=== PATIENT | female | born 1945 | race Caucasian/White ===

== ENCOUNTER → 2016-12-14 | Outpatient (CLI) | payer MEDICARE ==
--- NOTE | 2016-12-15 12:04 | MM ---
Reason for exam: screening (asymptomatic). Last mammogram was performed 1 year ago. History: Patient is postmenopausal and is nulliparous. Physical Findings: A clinical breast exam by your physician is recommended on an annual basis and results should be correlated with mammographic findings. MG 3D Screening Mammo W/Cad Bilateral CC, MLO, and XCCL view(s) were taken. Prior study comparison: December 01, 2015, bilateral MG 3d screening mammo w/cad. April 09, 2013, mammogram, performed at [place]. There are scattered fibroglandular densities. No significant changes when compared with prior studies. ASSESSMENT: Benign, BI-RAD 2 RECOMMENDATION: Routine screening mammogram of both breasts in 1 year.
== END | disposition home or self-care (01) ==
LOC: RADMAMWWP 11:53
PROVIDERS: ATTEND Internal Medicine
DX: Z12.31 Encounter for screening mammogram for malignant neoplasm of breast (principal)
CPT/HCPCS: 77063; G0202

== ENCOUNTER 2017-07-25 03:00 | Inpatient (IN) | payer MEDICARE ==
[2017-07-25 05:18] LABS: Anisocytosis Slight; HCT 38.2 % (34.0-46.0); HGB 11.1 gm/dL (11.4-16.0); Hypochromasia Marked; MCH 21.9 pg (25.0-35.0); MCV 75.4 fL (80.0-100.0); Mean Platelet Volume 9.4; Microcytosis Moderate; Platelet Count 308 k/uL (150-450); RBC 5.06 m/uL (3.80-5.40); RDW 18.4 % (11.5-15.5); WBC 6.7 k/uL (3.8-10.6)
[2017-07-25 05:37] LABS: Albumin 3.7 g/dL (3.5-5.0); Calcium 9.2 mg/dL (8.4-10.2); Magnesium 2.3 mg/dL (1.6-2.3); Total Bilirubin 1.1 mg/dL (0.2-1.3); Total Protein 6.7 g/dL (6.3-8.2)
[2017-07-25 05:42] LABS: Potassium 6.3 mmol/L (3.5-5.1)
--- NOTE | 2017-07-25 06:16 | XR ---
EXAM: XR Chest, 1 View CLINICAL HISTORY: chest pain, SOB TECHNIQUE: Frontal view of the chest. COMPARISON: No relevant prior studies available. FINDINGS: Lungs: Unremarkable. No consolidation. Pleural space: Unremarkable. No pneumothorax. Heart: Unremarkable. No cardiomegaly. Mediastinum: Unremarkable. Bones/joints: Unremarkable. Other findings: Wires project over the midline. IMPRESSION: No acute findings.
[2017-07-25 06:26] LABS: Potassium 5.7 mmol/L (3.5-5.1)
[2017-07-25 06:40] LABS: Amorphous Sediment,Urine Few /hpf; Appearance,Urine Cloudy (Clear); Bacteria,Urine Rare /hpf; Bilirubin,Urine 1+ (Negative); Blood,Urine Negative (Negative); Color,Urine Dark Brown; Glucose,Urine (UA) Negative (Negative); Hyaline Casts,Urine 32 /lpf (0-2); Ketones,Urine Negative (Negative); Leukocyte Esterase,Urine Moderate (Negative); Mucus,Urine Rare /hpf; Nitrite,Urine Negative (Negative); Protein,Urine 1+ (Negative); Specific Gravity,Urine 1.019 (1.001-1.035); Squamous Epithelial Cell,Urine 1 /hpf (0-4); WBC,Urine 35 /hpf (0-5)
[2017-07-25] MEDS ORDERED: SODIUM CHLORIDE 0.9% 2,000 ML IV ONE (07:15)
[2017-07-25] MEDS ORDERED: cefTRIAXone IN SWFI 1,000 MG/10 ML SYRINGE IVP STA (07:17)
[2017-07-25] MEDS ORDERED: NALOXONE 0.4 MG/ML 1 ML VIAL IV PRN (07:17)
[2017-07-25] MEDS ORDERED: DOCUSATE 100 MG CAP PO PRN (07:22)
[2017-07-25] MEDS ORDERED: ALBUTEROL NEBULIZED 2.5 MG/3 ML INHALATION PRN (07:22)
[2017-07-25] MEDS ORDERED: SODIUM POLYSTYRENE SULFONATE 15 GM/60 ML BOTTLE PO STA (07:34)
[2017-07-25] MEDS ORDERED: INSULIN REGULAR 100 UNIT/ML VIAL SQ STA (07:35)
[2017-07-25] MEDS: SODIUM CHLORIDE 0.9% 1,000 ML IV SCH ×2 (08:04→14:12)
[2017-07-25] MEDS ORDERED: FAMOTIDINE 20 MG TAB PO SCH (09:00)
[2017-07-25] MEDS: CALCIUM CARBONATE 500 MG CHEWABLE PO SCH (09:13)
[2017-07-25] MEDS: OXYBUTYNIN 15 MG TAB.ER.24 PO SCH (09:14)
[2017-07-25] MEDS: metFORMIN 500 MG TAB PO SCH (09:14)
[2017-07-25] MEDS: ATENOLOL 25 MG TAB PO SCH (09:14)
[2017-07-25] MEDS: MULTIVITAMINS, THERA 1 EACH TAB PO SCH (09:14)
[2017-07-25] MEDS: ATORVASTATIN 40 MG TAB PO SCH (09:15)
[2017-07-25] MEDS: BACLOFEN 10 MG TAB PO PRN (09:15)
[2017-07-25] MEDS: LEVOTHYROXINE 100 MCG TAB PO SCH (09:16)
[2017-07-25] MEDS: DULoxetine HCL 60 MG CAPSULE.DR PO SCH (09:16)
[2017-07-25] MEDS: LISINOPRIL 20 MG TAB PO SCH (09:16)
[2017-07-25] MEDS: PIOGLITAZONE 15 MG TAB PO SCH (09:18)
[2017-07-25] MEDS: CHOLECALCIFEROL 400 UNIT TAB PO SCH (09:41)
[2017-07-25] MEDS: oxyCODONE ER 10 MG TAB.ER.12H PO SCH ×3 (09:42→23:58)
[2017-07-25] MEDS: ASCORBIC ACID 500 MG TAB PO SCH (09:42)
[2017-07-25 12:22] LABS: Glucose,Whole Blood 335 mg/dL (75-99)
[2017-07-25 12:23] LABS: Glucose,Whole Blood 316 mg/dL (75-99)
[2017-07-25 12:42] LABS: Glucose,Whole Blood 263 mg/dL (75-99)
[2017-07-25] MEDS: INSULIN ASPART 100 UNIT/ML 1 ML 10 ML VIAL SQ SCH ×3 (13:56→22:27)
[2017-07-25] MEDS: ONDANSETRON 4 MG/2 ML VIAL IVP PRN (14:13)
[2017-07-25 17:14] LABS: Glucose,Whole Blood 189 mg/dL (75-99)
[2017-07-25] MEDS: COENZYME PO SCH (19:33)
[2017-07-25 20:29] LABS: Glucose,Whole Blood 176 mg/dL (75-99)
[2017-07-25] MEDS: traZODone HCL 50 MG TAB PO SCH (22:28)
[2017-07-26] MEDS: LEVOTHYROXINE 100 MCG TAB PO SCH (06:21)
[2017-07-26] MEDS: SODIUM CHLORIDE 0.9% 1,000 ML IV SCH ×3 (06:21→23:07)
[2017-07-26 07:34] LABS: Glucose,Whole Blood 196 mg/dL (75-99)
[2017-07-26] MEDS: metFORMIN 500 MG TAB PO SCH (08:23)
[2017-07-26] MEDS: ASCORBIC ACID 500 MG TAB PO SCH (08:24)
[2017-07-26] MEDS: ATENOLOL 25 MG TAB PO SCH (08:25)
[2017-07-26] MEDS: CALCIUM CARBONATE 500 MG CHEWABLE PO SCH (08:25)
[2017-07-26] MEDS: ATORVASTATIN 40 MG TAB PO SCH (08:25)
[2017-07-26] MEDS: CHOLECALCIFEROL 400 UNIT TAB PO SCH (08:26)
[2017-07-26] MEDS: INSULIN ASPART 100 UNIT/ML 1 ML 10 ML VIAL SQ SCH ×4 (08:27→21:23)
[2017-07-26] MEDS: DULoxetine HCL 60 MG CAPSULE.DR PO SCH (08:27)
[2017-07-26] MEDS: LISINOPRIL 20 MG TAB PO SCH (08:35)
[2017-07-26] MEDS: FAMOTIDINE 20 MG TAB PO SCH (08:35)
[2017-07-26] MEDS: OXYBUTYNIN 15 MG TAB.ER.24 PO SCH (08:36)
[2017-07-26] MEDS: MULTIVITAMINS, THERA 1 EACH TAB PO SCH (08:36)
[2017-07-26] MEDS: PIOGLITAZONE 15 MG TAB PO SCH (08:36)
[2017-07-26] MEDS: oxyCODONE ER 10 MG TAB.ER.12H PO SCH ×3 (08:38→23:07)
[2017-07-26] MEDS: COENZYME PO SCH (08:39)
[2017-07-26 09:14] LABS: Anisocytosis Slight; HCT 31.6 % (34.0-46.0); Hypochromasia Marked; MCHC 29.2 g/dL (31.0-37.0); MCV 75.4 fL (80.0-100.0); Mean Platelet Volume 8.4; Microcytosis Slight; Platelet Count 243 k/uL (150-450); RBC 4.19 m/uL (3.80-5.40); WBC 2.8 k/uL (3.8-10.6)
[2017-07-26 09:23] LABS: HGB 9.2 gm/dL (11.4-16.0)
[2017-07-26 09:24] LABS: Albumin 3.1 g/dL (3.5-5.0); Calcium 8.7 mg/dL (8.4-10.2); Potassium 4.4 mmol/L (3.5-5.1); Total Bilirubin 0.6 mg/dL (0.2-1.3); Total Protein 5.9 g/dL (6.3-8.2)
[2017-07-26 10:49] LABS: Band Neutrophils % 4 %; Eosinophils # (M) 0.11 k/uL (0-0.7); Lymphocytes # (M) 0.45 k/uL (1.0-4.8); Monocytes # (M) 0.08 k/uL (0-1.0); Neutrophils % (M) 73 %; Nucleated Red Blood Cells 0 /100 WBC (0-0); Ovalocytes Present; Poikilocytosis (M) Present; Total Cells Counted 100
[2017-07-26 12:06] LABS: Glucose,Whole Blood 221 mg/dL (75-99)
[2017-07-26] MEDS: ONDANSETRON 4 MG/2 ML VIAL IVP PRN (13:58)
[2017-07-26] MEDS ORDERED: FLUTICASONE 50MCG/SPRAY NASAL 16GM EA NOSTRIL PRN (17:24)
[2017-07-26 17:49] LABS: Glucose,Whole Blood 239 mg/dL (75-99)
--- NOTE | 2017-07-26 17:52 | P.HPIM ---
History of Present Illness H&P Date: 07/25/17 Chief Complaint: Mental status change Patient is a 74-year-old female with past medical history of hypertension, hyperlipidemia, hypothyroidism, diabetes mellitus type 1, who was brought to the emergency department with the concerned about mental status change. Patient remains somewhat confused and is unable to recall why she was brought to the hospital. Patient does note that she is in the hospital. According to the EMS records patient was found to be somewhat confused by one of an neighborhood friends. He found the patient very confused and trying to defecate on the furniture. He called EMS and patient was brought to the hospital. Review of Systems ROS unobtainable: due to mental status Constitutional: Reports as per HPI Eyes: denies bulging eye, denies discharge, denies pain Ears: deny: decreased hearing, ear discharge Ears, nose, mouth and throat: Reports as per HPI Cardiovascular: Reports chest pain, Reports high blood pressure Respiratory: Reports congestion, Reports cough Gastrointestinal: Reports heartburn, Reports nausea Genitourinary: Reports incomplete emptying Musculoskeletal: Reports muscle cramps, Reports myalgias Musculoskeletal: absent: ankle pain, elbow pain, foot swelling Integumentary: Reports dryness Neurological: Reports confusion, Reports weakness Psychiatric: Reports irritability Endocrine: Reports high blood sugars Hematologic/Lymphatic: Reports as per HPI Past Medical History Past Medical History: Asthma, Coronary Artery Disease (CAD), Cancer, Diabetes Mellitus, Hyperlipidemia, Hypertension, Osteoarthritis (OA), Pneumonia, Renal Disease, Thyroid Disorder Additional Past Medical History / Comment(s): R sided ovarian cancer diagnosed about 06/03/17 with exploratory laparotomy with tumor removal and lysis of adhesions-pt has had 1st IV chemo and will get 5 more cycles ([facility]) , current sacral ulcer-receiving wound care at home by home care nurse, IDDM type II, CKD, bronchitis, osteopenia, cardiac murmur, possible CAD, chronic back pain, recent UTI, urine incontinence at times. History of Any Multi-Drug Resistant Organisms: None Reported Past Surgical History: Appendectomy, Cholecystectomy, Hysterectomy, Joint Replacement, Tonsillectomy Additional Past Surgical History / Comment(s): 06/2017 Exploratory laparotomy with tumor removal and lysis of adhesions done at [facility], bilateral total knees, bilateral cataract removals, colonoscopies-last one normal, one prior had multiple benign polypectomies, D&C. Past Anesthesia/Blood Transfusion Reactions: No Reported Reaction Additional Past Anesthesia/Blood Transfusion Reaction / Comment(s): Unsure of family history, patient was adopted. Smoking Status: Former smoker - Past Family History Father History Unknown: Yes Additional Family Medical History / Comment(s): Pt is adopted and does not know parents medical history. Medications and Allergies Home Medications Medication Instructions Recorded Confirmed Type Albuterol Inhaler [Ventolin Hfa 2 inhalation INHALATION QID PRN 01/06/16 History Inhaler] Ascorbic Acid [Vitamin C] 1,000 mg PO DAILY 01/06/16 07/25/17 History Baclofen 10 mg PO QID PRN 01/06/16 07/25/17 History Calcium Carbonate [Calcium] 1,200 mg PO DAILY 01/06/16 07/25/17 History Cholecalciferol [Vitamin D3] 200 units PO DAILY 01/06/16 07/25/17 History DULoxetine HCL [Cymbalta] 60 mg PO DAILY 01/06/16 07/25/17 History Lisinopril 40 mg PO DAILY 01/06/16 07/25/17 History Multivitamin [Multivitamins Adult 1 tab PO DAILY 01/06/16 07/25/17 History Gummies] Pioglitazone [Actos] 15 mg PO DAILY 01/06/16 07/25/17 History Trospium Chloride [Sanctura] 20 mg PO BID 01/06/16 07/25/17 History Ubidecarenone [Coenzyme Q10] 200 mcg PO DAILY 01/06/16 07/25/17 History metFORMIN HCL [Metformin HCl ER] 1,000 mg PO DAILY 01/06/16 07/25/17 History oxyCODONE HCL 10 mg PO Q6H PRN 01/06/16 07/25/17 History traZODone HCL [Desyrel] 50 - 100 mg PO HS 01/06/16 07/25/17 History Insulin NPH Hum/Reg Insulin Hm 30 unit SQ AC-BRKFST 03/17/16 07/25/17 History [NovoLIN 70-30 100 UNIT/ML VIAL] Insulin NPH Hum/Reg Insulin Hm 30 unit SQ AC-SUPPER 03/17/16 07/25/17 History [NovoLIN 70-30 100 UNIT/ML VIAL] Atorvastatin [Lipitor] 40 mg PO HS 07/25/17 07/25/17 History Fluticasone Nasal [place] [Flonase 1 spray EA NOSTRIL DAILY PRN 07/25/17 07/25/17 History Nasal [place]] Hydrochlorothiazide [Hydrodiuril] 25 mg PO DAILY 07/25/17 07/25/17 History Levothyroxine Sodium [Synthroid] 100 mcg PO DAILY 07/25/17 07/25/17 History Metoprolol Tartrate [Lopressor] 12.5 mg PO BID 07/25/17 07/25/17 History Oxybutynin Chloride [Ditropan XL] 5 mg PO DAILY 07/25/17 07/25/17 History amLODIPine [Norvasc] 5 mg PO DAILY 07/25/17 07/25/17 History Allergies Allergy/AdvReac Type Severity Reaction Status Date / Time amoxicillin Allergy Rash/Hives Verified 07/25/17 08:55 ciprofloxacin [From Cipro] Allergy Dyspnea Verified 07/25/17 08:55 ciprofloxacin HCl Allergy Dyspnea Verified 07/25/17 08:55 [From Cipro] Sulfa (Sulfonamide Allergy Unknown Verified 07/25/17 08:55 Antibiotics) Physical Exam Vitals: Vital Signs Temp Pulse Pulse Resp BP BP Pulse Ox 07/25/17 16:35 98.8 F 91 20 123/54 98 07/25/17 11:14 97.5 F L 76 20 127/73 100 07/25/17 10:48 96.9 F L 80 17 124/56 98 07/25/17 09:44 88 17 116/57 97 Intake and Output 07/25/17 07/25/17 07/25/17 06:59 14:59 22:59 Output Total 300 Balance -300 Output: Urine 300 Other: # Voids 1 Weight 0 g Patient Weight 07/26/17 06:59 Weight 0 g - Constitutional General appearance: no acute distress, obese - EENT Eyes: anicteric sclerae, EOMI, PERRLA, fundus normal ENT: hard of hearing, normal oropharynx Ears: negative: erythema - Neck Neck: no lymphadenopathy, no normal ROM, no other, no rigidity, no stridor, no thyromegaly Carotids: negative: bruit present Thyroid: negative: enlarged, nodule - Respiratory Respiratory: bilateral: diminished, rhonchi, negative: rales, wheezing - Cardiovascular Rhythm: regular Heart sounds: normal: S1, S2 Abnormal Heart Sounds: systolic murmur - Gastrointestinal General gastrointestinal: normal bowel sounds, soft, tenderness Localized gastrointestinal: tender: diffuse - Integumentary Integumentary: normal turgor - Neurologic Neurologic: CNII-XII intact - Musculoskeletal Musculoskeletal: generalized weakness Results CBC & Chem 7: 07/26/17 08:05 07/26/17 08:05 Labs: Abnormal Lab Results - Last 24 Hours (Table) 07/25/17 07/25/17 07/25/17 Range/Units 03:39 04:25 04:25 Hgb 11.1 L (11.4-16.0) gm/dL MCV 75.4 L (80.0-100.0) fL MCH 21.9 L (25.0-35.0) pg MCHC 29.0 L (31.0-37.0) g/dL RDW 18.4 H (11.5-15.5) % Sodium 130 L (137-145) mmol/L Potassium 6.3 H* (3.5-5.1) mmol/L Chloride 95 L (98-107) mmol/L Carbon Dioxide 19 L (22-30) mmol/L BUN 46 H (7-17) mg/dL Creatinine 1.62 H (0.52-1.04) mg/dL Glucose 364 H (74-99) mg/dL POC Glucose (mg/dL) 335 H (75-99) mg/dL Plasma Lactic Acid Konstantin (0.7-2.0) mmol/L AST 39 H (14-36) U/L Alkaline Phosphatase 602 H (38-126) U/L Urine Appearance (Clear) Urine Protein (Negative) Urine Bilirubin (Negative) Ur Leukocyte Esterase (Negative) Urine WBC (0-5) /hpf Amorphous Sediment (None) /hpf Urine Bacteria (None) /hpf Hyaline Casts (0-2) /lpf Urine Mucus (None) /hpf 07/25/17 07/25/17 07/25/17 Range/Units 04:25 05:50 06:02 Hgb (11.4-16.0) gm/dL MCV (80.0-100.0) fL MCH (25.0-35.0) pg MCHC (31.0-37.0) g/dL RDW (11.5-15.5) % Sodium 129 L (137-145) mmol/L Potassium 5.7 H (3.5-5.1) mmol/L Chloride 95 L (98-107) mmol/L Carbon Dioxide 21 L (22-30) mmol/L BUN 48 H (7-17) mg/dL Creatinine 1.71 H (0.52-1.04) mg/dL Glucose 363 H (74-99) mg/dL POC Glucose (mg/dL) (75-99) mg/dL Plasma Lactic Acid Konstantin 4.1 H* (0.7-2.0) mmol/L AST (14-36) U/L Alkaline Phosphatase (38-126) U/L Urine Appearance Cloudy H (Clear) Urine Protein 1+ H (Negative) Urine Bilirubin 1+ H (Negative) Ur Leukocyte Esterase Moderate H (Negative) Urine WBC 35 H (0-5) /hpf Amorphous Sediment Few H (None) /hpf Urine Bacteria Rare H (None) /hpf Hyaline Casts 32 H (0-2) /lpf Urine Mucus Rare H (None) /hpf 07/25/17 07/25/17 07/25/17 Range/Units 09:04 09:12 12:28 Hgb (11.4-16.0) gm/dL MCV (80.0-100.0) fL MCH (25.0-35.0) pg MCHC (31.0-37.0) g/dL RDW (11.5-15.5) % Sodium (137-145) mmol/L Potassium (3.5-5.1) mmol/L Chloride (98-107) mmol/L Carbon Dioxide (22-30) mmol/L BUN (7-17) mg/dL Creatinine (0.52-1.04) mg/dL Glucose (74-99) mg/dL POC Glucose (mg/dL) 316 H 263 H (75-99) mg/dL Plasma Lactic Acid Konstantin 2.5 H* (0.7-2.0) mmol/L AST (14-36) U/L Alkaline Phosphatase (38-126) U/L Urine Appearance (Clear) Urine Protein (Negative) Urine Bilirubin (Negative) Ur Leukocyte Esterase (Negative) Urine WBC (0-5) /hpf Amorphous Sediment (None) /hpf Urine Bacteria (None) /hpf Hyaline Casts (0-2) /lpf Urine Mucus (None) /hpf 07/25/17 Range/Units 17:09 Hgb (11.4-16.0) gm/dL MCV (80.0-100.0) fL MCH (25.0-35.0) pg MCHC (31.0-37.0) g/dL RDW (11.5-15.5) % Sodium (137-145) mmol/L Potassium (3.5-5.1) mmol/L Chloride (98-107) mmol/L Carbon Dioxide (22-30) mmol/L BUN (7-17) mg/dL Creatinine (0.52-1.04) mg/dL Glucose (74-99) mg/dL POC Glucose (mg/dL) 189 H (75-99) mg/dL Plasma Lactic Acid Konstantin (0.7-2.0) mmol/L AST (14-36) U/L Alkaline Phosphatase (38-126) U/L Urine Appearance (Clear) Urine Protein (Negative) Urine Bilirubin (Negative) Ur Leukocyte Esterase (Negative) Urine WBC (0-5) /hpf Amorphous Sediment (None) /hpf Urine Bacteria (None) /hpf Hyaline Casts (0-2) /lpf Urine Mucus (None) /hpf Microbiology - Last 24 Hours (Table) 07/25/17 05:50 Urine Culture - Preliminary Urine,Catheterized Thrombosis Risk Factor Assmnt - Choose All That Apply Any of the Below Risk Factors Present?: Yes Each Factor Represents 1 point: Obesity (BMI >25) Other Risk Factors: Yes Each Risk Factor Represents 2 Points: Age 61-74 years, Malignancy Other congenital or acquired thrombophilia - If yes, enter type in comment: No Thrombosis Risk Factor Assessment Total Risk Factor Score: 5 Thrombosis Risk Factor Assessment Level: High Risk Assessment and Plan Assessment: 1. Toxic metabolic encephalopathy secondary to sepsis 2. Complicated UTI 3. Lactic acidosis secondary to sepsis versus dehydration 4. Acute renal failure 5. Hyponatremia 6. Hyperkalemia 7. Hyperglycemia/uncontrolled diabetes 8. Hypertension 9. Hyperlipidemia 10. Hypothyroidism 11. DVT prophylaxis 12. GI prophylaxis Plan his treatment patient to the monitored floor. Patient is started on IV fluids per sepsis bundle. The monitor DANIEL's and renal function. Start patient on IV Rocephin until urine cultures available. Await urine culture and blood culture report for further recommendations. Neuro checks were ordered which were stable. Monitor Accu-Cheks with sliding scale. We'll adjust insulin if blood sugars remain markedly elevated after treatment of sepsis. Patient's blood pressure is stable and so we will resume all home medications except diuretics secondary to renal failure. Monitor lactic acid level and consult ID if lactic acid remains elevated after starting on IV antibiotics and IV fluid resuscitation.
[2017-07-26] MEDS: amLODIPine 5 MG TAB PO SCH (18:09)
[2017-07-26 19:56] LABS: Glucose,Whole Blood 226 mg/dL (75-99)
--- NOTE | 2017-07-26 22:36 | PN ---
PROGRESS NOTE DATE OF SERVICE: 07/26/2017 The patient is seen in her room. A 74-year-old lady admitted with altered mental status and sepsis. Vital signs temperature 98.1, pulse 78, respiration 18, blood pressure 142/62, O2 saturation 94% on room air. CONSTITUTIONAL: Patient is awake, alert and she is in no acute distress. HEENT atraumatic, normocephalic. Pupils equal and reactive to light. Extraocular movements intact. Buccal mucosa is fair. Neck is supple without any goiter, lymphadenopathy. JVD is negative. No carotid bruit heard. RESPIRATORY: Lungs are clear to auscultate. No rales, rhonchi, or wheezes. Cardiovascular: Heart is regular rate and rhythm without any murmurs or gallop rhythm. Abdomen/GI: Abdomen is soft, obese, nontender, nondistended. Bowel sounds positive. Extremities: Patient has 1+ edema bilateral lower extremities with multiple blisters, both upper and lower extremities, which are dried up. The pulses are palpable. Neurological examination: Patient is awake and alert. She is slow to respond. Cranial nerves 2-12 are grossly intact. No gross motor or sensory deficit. LABS: CBC shows white blood count of 2.8, hemoglobin 9.2, hematocrit 31.6, and platelet count of 243. Chemical profile sodium 138, potassium 4.4, chloride 21, bicarb 13, BUN of 14, creatinine 1.26. Glucose is ranging between 230-239. Urine culture is positive for gram-negative bacilli. ASSESSMENT: 1. Altered mental status, metabolic and toxic encephalopathy secondary to sepsis. 2. Complicated urinary tract infection. 3. Acute renal failure, dehydration. 4. Lactic acidosis secondary to sepsis. 5. Electrolyte imbalance. 6. Hyponatremia. 7. Hyperglycemia without acidosis. 8. Hypertension. 9. Hyperlipidemia. 10.Hypothyroidism. 11.DVT/GI prophylaxis. PLAN: Continue with IV Rocephin at this point. Will wait for urine culture. Final antibiotic recommendations. Continue with the IV fluids. Monitor CBC, electrolytes and renal function. Monitor I and Os strictly. Accu-Cheks with sliding scale. Adjust insulin if needed. We will resume all home medications but hold off of diuretics secondary to renal failure. MMODL / IJN: [id number] / [facility]
[2017-07-26] MEDS: BACLOFEN 10 MG TAB PO PRN (23:07)
[2017-07-26] MEDS: traZODone HCL 50 MG TAB PO SCH (23:07)
[2017-07-27] MEDS: LEVOTHYROXINE 100 MCG TAB PO SCH (05:44)
[2017-07-27 07:03] LABS: Glucose,Whole Blood 194 mg/dL (75-99)
[2017-07-27] MEDS: INSULIN ASPART 100 UNIT/ML 1 ML 10 ML VIAL SQ SCH ×4 (07:56→21:14)
[2017-07-27 08:08] LABS: Anisocytosis Slight; HCT 26.3 % (34.0-46.0); HGB 8.1 gm/dL (11.4-16.0); Hypochromasia Marked; MCH 22.4 pg (25.0-35.0); MCHC 30.7 g/dL (31.0-37.0); MCV 73.1 fL (80.0-100.0); Mean Platelet Volume 8.7; Microcytosis Moderate; Platelet Count 222 k/uL (150-450); RDW 18.9 % (11.5-15.5); WBC 2.1 k/uL (3.8-10.6)
[2017-07-27 08:18] LABS: Anion Gap 7 mmol/L; Blood Urea Nitrogen 26 mg/dL (7-17); Calcium 8.4 mg/dL (8.4-10.2); Carbon Dioxide 24 mmol/L (22-30); Chloride 103 mmol/L (98-107); Glucose 198 mg/dL (74-99); Potassium 3.9 mmol/L (3.5-5.1); Sodium 134 mmol/L (137-145)
[2017-07-27] MEDS: ONDANSETRON 4 MG/2 ML VIAL IVP PRN (08:54)
[2017-07-27] MEDS: metFORMIN 500 MG TAB PO SCH (09:03)
[2017-07-27] MEDS: ATORVASTATIN 40 MG TAB PO SCH (09:05)
[2017-07-27] MEDS: ASCORBIC ACID 500 MG TAB PO SCH (09:05)
[2017-07-27] MEDS: ATENOLOL 25 MG TAB PO SCH (09:05)
[2017-07-27] MEDS: CALCIUM CARBONATE 500 MG CHEWABLE PO SCH (09:05)
[2017-07-27] MEDS: amLODIPine 5 MG TAB PO SCH (09:05)
[2017-07-27] MEDS: CHOLECALCIFEROL 400 UNIT TAB PO SCH (09:06)
[2017-07-27] MEDS: LISINOPRIL 20 MG TAB PO SCH (09:07)
[2017-07-27] MEDS: OXYBUTYNIN 15 MG TAB.ER.24 PO SCH (09:07)
[2017-07-27] MEDS: DULoxetine HCL 60 MG CAPSULE.DR PO SCH (09:07)
[2017-07-27] MEDS: MULTIVITAMINS, THERA 1 EACH TAB PO SCH (09:07)
[2017-07-27] MEDS: FAMOTIDINE 20 MG TAB PO SCH (09:07)
[2017-07-27] MEDS: oxyCODONE ER 10 MG TAB.ER.12H PO SCH ×3 (09:07→21:52)
[2017-07-27] MEDS: COENZYME PO SCH (09:08)
[2017-07-27] MEDS: PIOGLITAZONE 15 MG TAB PO SCH (09:08)
[2017-07-27] MEDS: BACLOFEN 10 MG TAB PO PRN ×2 (10:40→23:31)
[2017-07-27 10:47] LABS: Band Neutrophils % 1 %; Eosinophils # (M) 0.38 k/uL (0-0.7); Lymphocytes # (M) 0.61 k/uL (1.0-4.8); Monocytes # (M) 0.44 k/uL (0-1.0); Neutrophils % (M) 31 %; Nucleated Red Blood Cells 0 /100 WBC (0-0); Total Cells Counted 100
[2017-07-27 10:49] LABS: Ovalocytes Present
[2017-07-27 10:50] LABS: Target Cells Present
[2017-07-27 10:51] LABS: Poikilocytosis (M) Present
[2017-07-27 11:18] LABS: Glucose,Whole Blood 272 mg/dL (75-99)
[2017-07-27 14:02] LABS: Anisocytosis Slight; HCT 29.8 % (34.0-46.0); HGB 8.5 gm/dL (11.4-16.0); Hypochromasia Marked; MCH 22.6 pg (25.0-35.0); MCHC 28.4 g/dL (31.0-37.0); Mean Platelet Volume 6.6; Microcytosis Slight; Platelet Count 251 k/uL (150-450); RBC 3.74 m/uL (3.80-5.40); RDW 17.2 % (11.5-15.5); WBC 2.1 k/uL (3.8-10.6)
[2017-07-27 14:04] LABS: MCV 79.5 fL (80.0-100.0)
[2017-07-27 17:13] LABS: Glucose,Whole Blood 219 mg/dL (75-99)
[2017-07-27] MEDS: cefTRIAXone IN SWFI 1,000 MG/10 ML SYRINGE IVP SCH ×2 (18:02→19:41)
[2017-07-27] MEDS: PANTOPRAZOLE 40 MG TABLET PO SCH (18:03)
[2017-07-27] MEDS ORDERED: FILGRASTIM-SNDZ 480 MCG/0.8 ML SYRINGE SQ SCH (18:30)
[2017-07-27 19:35] LABS: Iron Saturation 2.41 (12.00-45.00)
[2017-07-27 19:55] LABS: Glucose,Whole Blood 177 mg/dL (75-99)
[2017-07-27] MEDS: traZODone HCL 50 MG TAB PO SCH (21:51)
--- NOTE | 2017-07-28 00:20 | P.CONS ---
History of Present Illness - Reason for Consult Consult date: 07/27/17 Altered mental status, UTI, cytopenias on chemo - History of Present Illness The patient is a 72-year-old white female, who was diagnosed with ovarian cancer in 05/18. She underwent radical surgery by Dr. Downey at [facility] in early 06/17. According to the patient, on obvious disease was removed. The patient was then started on adjuvant chemotherapy. She is not aware of the name of that regimen but states that she is getting it every 3 weeks. This is likely to be carboplatin and Taxol. She had her first cycle about 2 weeks ago. She does not recall receiving any growth factor support. The patient was noted by her friend at home to be very confused. She had also fallen and hurt her left arm. She was therefore brought into the emergency room. She was noted to be neutropenic, as well as anemic. ANC was less than 1000. Urinalysis was abnormal. The patient was started on IV hydration and antibiotics with clinical improvement. She did not have any overt fevers. Consult was placed for further evaluation and recommendations. Review of Systems Constitutional: Reports fatigue, Reports poor appetite, Reports weakness Eyes: denies blurred vision, denies pain Ears: deny: decreased hearing, ear discharge, earache, tinnitus Ears, nose, mouth and throat: Denies headache, Denies sore throat Cardiovascular: Reports decreased exercise tolerance Respiratory: Denies cough Gastrointestinal: Reports nausea Genitourinary: Reports as per HPI, Reports urgency Menstruation: Reports postmenopausal Musculoskeletal: Reports muscle weakness Integumentary: Denies pruritus, Denies rash Neurological: Reports change in mentation, Reports confusion Psychiatric: Reports confusion Endocrine: Reports fatigue, Denies weight change Hematologic/Lymphatic: Reports as per HPI Past Medical History Past Medical History: Asthma, Coronary Artery Disease (CAD), Cancer, Diabetes Mellitus, Hyperlipidemia, Hypertension, Osteoarthritis (OA), Pneumonia, Renal Disease, Thyroid Disorder Additional Past Medical History / Comment(s): R sided ovarian cancer diagnosed about 06/03/17 with exploratory laparotomy with tumor removal and lysis of adhesions-pt has had 1st IV chemo and will get 5 more cycles ([facility]) , current sacral ulcer-receiving wound care at home by home care nurse, IDDM type II, CKD, bronchitis, osteopenia, cardiac murmur, possible CAD, chronic back pain, recent UTI, urine incontinence at times. History of Any Multi-Drug Resistant Organisms: None Reported Past Surgical History: Appendectomy, Cholecystectomy, Hysterectomy, Joint Replacement, Tonsillectomy Additional Past Surgical History / Comment(s): 06/2017 Exploratory laparotomy with tumor removal and lysis of adhesions done at [facility], bilateral total knees, bilateral cataract removals, colonoscopies-last one normal, one prior had multiple benign polypectomies, D&C. Past Anesthesia/Blood Transfusion Reactions: No Reported Reaction Additional Past Anesthesia/Blood Transfusion Reaction / Comm: Unsure of family history, patient was adopted. Smoking Status: Former smoker - Past Family History Father History Unknown: Yes Additional Family Medical History / Comment(s): Pt is adopted and does not know parents medical history. Medications and Allergies Home Medications Medication Instructions Recorded Confirmed Type Albuterol Inhaler [Ventolin Hfa 2 inhalation INHALATION QID PRN 01/06/16 History Inhaler] Ascorbic Acid [Vitamin C] 1,000 mg PO DAILY 01/06/16 07/25/17 History Baclofen 10 mg PO QID PRN 01/06/16 07/25/17 History Calcium Carbonate [Calcium] 1,200 mg PO DAILY 01/06/16 07/25/17 History Cholecalciferol [Vitamin D3] 200 units PO DAILY 01/06/16 07/25/17 History DULoxetine HCL [Cymbalta] 60 mg PO DAILY 01/06/16 07/25/17 History Lisinopril 40 mg PO DAILY 01/06/16 07/25/17 History Multivitamin [Multivitamins Adult 1 tab PO DAILY 01/06/16 07/25/17 History Gummies] Pioglitazone [Actos] 15 mg PO DAILY 01/06/16 07/25/17 History Trospium Chloride [Sanctura] 20 mg PO BID 01/06/16 07/25/17 History Ubidecarenone [Coenzyme Q10] 200 mcg PO DAILY 01/06/16 07/25/17 History metFORMIN HCL [Metformin HCl ER] 1,000 mg PO DAILY 01/06/16 07/25/17 History oxyCODONE HCL 10 mg PO Q6H PRN 01/06/16 07/25/17 History traZODone HCL [Desyrel] 50 - 100 mg PO HS 01/06/16 07/25/17 History Insulin NPH Hum/Reg Insulin Hm 30 unit SQ AC-BRKFST 03/17/16 07/25/17 History [NovoLIN 70-30 100 UNIT/ML VIAL] Insulin NPH Hum/Reg Insulin Hm 30 unit SQ AC-SUPPER 03/17/16 07/25/17 History [NovoLIN 70-30 100 UNIT/ML VIAL] Atorvastatin [Lipitor] 40 mg PO HS 07/25/17 07/25/17 History Fluticasone Nasal [place] [Flonase 1 spray EA NOSTRIL DAILY PRN 07/25/17 07/25/17 History Nasal [place]] Hydrochlorothiazide [Hydrodiuril] 25 mg PO DAILY 07/25/17 07/25/17 History Levothyroxine Sodium [Synthroid] 100 mcg PO DAILY 07/25/17 07/25/17 History Metoprolol Tartrate [Lopressor] 12.5 mg PO BID 07/25/17 07/25/17 History Oxybutynin Chloride [Ditropan XL] 5 mg PO DAILY 07/25/17 07/25/17 History amLODIPine [Norvasc] 5 mg PO DAILY 07/25/17 07/25/17 History Allergies Allergy/AdvReac Type Severity Reaction Status Date / Time amoxicillin Allergy Rash/Hives Verified 07/25/17 08:55 ciprofloxacin [From Cipro] Allergy Dyspnea Verified 07/25/17 08:55 ciprofloxacin HCl Allergy Dyspnea Verified 07/25/17 08:55 [From Cipro] Sulfa (Sulfonamide Allergy Unknown Verified 07/25/17 08:55 Antibiotics) Physical Exam Vitals: Vital Signs Temp Pulse Pulse Resp BP Pulse Ox 07/27/17 16:46 20 07/27/17 16:08 76 20 07/27/17 16:00 80 18 07/27/17 15:00 98 F 80 18 123/56 97 07/27/17 09:33 93 18 07/27/17 07:00 97.6 F 93 18 137/66 95 07/26/17 23:10 16 07/26/17 21:30 98.9 F 94 16 129/61 96 Intake and Output 07/27/17 07/27/17 07/27/17 06:59 14:59 22:59 Other: Voiding Method Toilet Toilet Toilet Diaper Incontinent Diaper Incontinent Incontinent # Voids 2 2 - Constitutional General appearance: no acute distress - EENT Eyes: EOMI, PERRLA ENT: hearing grossly normal, normal oropharynx - Neck Neck: no lymphadenopathy Thyroid: bilateral: normal size - Respiratory Respiratory: bilateral: CTA - Cardiovascular Rhythm: regular Heart sounds: normal: S1, S2 - Gastrointestinal General gastrointestinal: normal bowel sounds, soft - Integumentary Integumentary: normal - Neurologic Neurologic: CNII-XII intact - Musculoskeletal Musculoskeletal: generalized weakness, strength equal bilaterally - Psychiatric Psychiatric: A&O x's 3 Results CBC & Chem 7: 07/27/17 13:27 07/27/17 07:32 Labs: Abnormal Lab Results - Last 24 Hours (Table) 07/26/17 07/27/17 07/27/17 Range/Units 19:54 07:00 07:32 WBC 2.1 L (3.8-10.6) k/uL RBC 3.60 L (3.80-5.40) m/uL Hgb 8.1 L (11.4-16.0) gm/dL Hct 26.3 L (34.0-46.0) % MCV 73.1 L (80.0-100.0) fL MCH 22.4 L (25.0-35.0) pg MCHC 30.7 L (31.0-37.0) g/dL RDW 18.9 H (11.5-15.5) % Neutrophils # (Manual) 0.60 L (1.3-7.7) k/uL Lymphocytes # (Manual) 0.61 L (1.0-4.8) k/uL Sodium (137-145) mmol/L BUN (7-17) mg/dL Glucose (74-99) mg/dL POC Glucose (mg/dL) 226 H 194 H (75-99) mg/dL 07/27/17 07/27/17 07/27/17 Range/Units 07:32 11:16 13:27 WBC 2.1 L (3.8-10.6) k/uL RBC 3.74 L (3.80-5.40) m/uL Hgb 8.5 L (11.4-16.0) gm/dL Hct 29.8 L (34.0-46.0) % MCV 79.5 L D (80.0-100.0) fL MCH 22.6 L (25.0-35.0) pg MCHC 28.4 L (31.0-37.0) g/dL RDW 17.2 H (11.5-15.5) % Neutrophils # (Manual) (1.3-7.7) k/uL Lymphocytes # (Manual) (1.0-4.8) k/uL Sodium 134 L (137-145) mmol/L BUN 26 H (7-17) mg/dL Glucose 198 H (74-99) mg/dL POC Glucose (mg/dL) 272 H (75-99) mg/dL 07/27/17 Range/Units 17:09 WBC (3.8-10.6) k/uL RBC (3.80-5.40) m/uL Hgb (11.4-16.0) gm/dL Hct (34.0-46.0) % MCV (80.0-100.0) fL MCH (25.0-35.0) pg MCHC (31.0-37.0) g/dL RDW (11.5-15.5) % Neutrophils # (Manual) (1.3-7.7) k/uL Lymphocytes # (Manual) (1.0-4.8) k/uL Sodium (137-145) mmol/L BUN (7-17) mg/dL Glucose (74-99) mg/dL POC Glucose (mg/dL) 219 H (75-99) mg/dL Microbiology - Last 24 Hours (Table) 07/25/17 05:50 Urine Culture - Final Urine,Catheterized Escherichia coli 07/25/17 04:25 Blood Culture - Preliminary Blood No Growth after 48 hours Chest x-ray: report reviewed Assessment and Plan (1) Confusion Narrative/Plan: the patient has improved with hydration and the initiation of antibiotic. At this time her affect is slightly slow but she appears to be back to her normal baseline. This was confirmed with her caregivers were at the bedside. Therefore her presentation appears to be possibly due to UTI/early sepsis as well as dehydration. Continue hydration and antibiotic Current Visit: Yes Status: Acute Code(s): R41.0 - DISORIENTATION, UNSPECIFIED SNOMED Code(s): 334662104 (2) UTI (urinary tract infection) Narrative/Plan: urinalysis appears to be abnormal. As noted the patient is also neutropenic. Given the presentation with mental status changes, there is a clinical possibility of early sepsis. Agree with antibiotic. Cultures are pending Current Visit: Yes Status: Acute Code(s): N39.0 - URINARY TRACT INFECTION, SITE NOT SPECIFIED SNOMED Code(s): 97934527 (3) Bicytopenia Narrative/Plan: this is chemotherapy induced. Given the possibility of UTI, filgrastim will be started. The patient has not had any overt fevers. Hemoglobin is in a safe range. Continue filgrastim total white count recovers adequately. Continue to monitor CBC with transfusion support if required. Current Visit: Yes Status: Acute Code(s): D75.89 - OTHER SPECIFIED DISEASES OF BLOOD AND BLOOD-FORMING ORGANS SNOMED Code(s): 528561549 (4) Carcinoma of ovary Narrative/Plan: the patient will resume follow-up with her [facility] oncologist, Dr. Downey, post discharge Current Visit: Yes Status: Acute Code(s): C56.9 - MALIGNANT NEOPLASM OF UNSPECIFIED OVARY SNOMED Code(s): 980767213
[2017-07-28] MEDS ORDERED: ACETAMINOPHEN TAB 325 MG TAB PO PRN (02:25)
[2017-07-28] MEDS: SODIUM CHLORIDE 0.9% 1,000 ML IV SCH ×4 (05:18→17:37)
[2017-07-28] MEDS: LEVOTHYROXINE 100 MCG TAB PO SCH (05:51)
[2017-07-28] MEDS: oxyCODONE ER 10 MG TAB.ER.12H PO SCH (05:51)
[2017-07-28 07:08] LABS: Glucose,Whole Blood 244 mg/dL (75-99)
[2017-07-28 07:39] LABS: Anisocytosis Slight; HCT 28.2 % (34.0-46.0); HGB 8.2 gm/dL (11.4-16.0); Hypochromasia Marked; MCH 22.1 pg (25.0-35.0); MCHC 29.1 g/dL (31.0-37.0); MCV 75.8 fL (80.0-100.0); Mean Platelet Volume 7.4; Microcytosis Slight; Platelet Count 272 k/uL (150-450); RBC 3.72 m/uL (3.80-5.40); RDW 17.3 % (11.5-15.5); WBC 5.5 k/uL (3.8-10.6)
--- NOTE | 2017-07-28 07:41 | PN ---
PROGRESS NOTE DATE OF SERVICE: 07/26/2017 Patient is seen in her room. She is more awake, alert and oriented. Vital signs today are temperature of 98, pulse 80, respiration 18, blood pressure 123/56, O2 saturation 97%. HEENT: Atraumatic, normocephalic. Pupils equal, round and reactive to light. Extraocular movements intact. Buccal mucosa is fair. Neck is supple without goiter, lymphadenopathy. JVD is negative. No carotid bruit heard. Respiratory: Lungs are clear to auscultation. No rales, rhonchi, or wheezes. Cardiovascular system: Heart is regular rate and rhythm without any murmurs or gallop rhythm. Abdomen/GI abdomen is soft, nontender, nondistended. Bowel sounds positive. EXTREMITIES the patient was 1+ edema both lower extremities with dried up blisters on both upper and lower extremities. Peripheral pulses are palpable. Neurological examination patient is awake, alert and oriented. Cranial nerves 2-12 grossly intact. LABS: CBC, white blood count of 2.1, hemoglobin 8.1, hematocrit 26.3, and platelet count of 222. Chemical profile sodium 134, potassium 3.9, chloride 103, bicarb 24, BUN 26, creatinine 1.03, glucose 198. ASSESSMENT: 1. Severe anemia. The patient's hemoglobin has dropped down from 11 at the time of admission to 8.1 this morning. 2. Altered mental status, metabolic and toxic encephalopathy secondary to sepsis. 3. Complicated urinary tract infection. 4. Acute renal failure, dehydration. 5. Lactic acidosis secondary to sepsis. 6. Electrolyte imbalance. 7. Hyponatremia. 8. Hyperglycemia without acidosis. 9. Hypertension. 10.Hyperlipidemia. 11.Hypothyroidism. 12.Deep vein thrombosis/gastrointestinal prophylaxis. The patient the patient will have H and H done every 12 hours. We will monitor stool occult blood. Start patient on oral and oral Protonix. Will consult Gastroenterology and Hematology for further evaluation. Monitor. Continue to monitor renal function and I and Os. Accu-Cheks with sliding scale. Adjust insulin if needed. The patient's urine culture has come back positive for E coli. Final sensitivity report is available, which is sensitive to Rocephin. We will continue Rocephin. We will switch to oral nitrofurantoin or Bactrim at the time of discharge. Further recommendations after patient is seen by Gastroenterology and Hematology. MMODL / IJN: [id number] /
[2017-07-28] MEDS: INSULIN ASPART 100 UNIT/ML 1 ML 10 ML VIAL SQ SCH ×4 (07:48→23:19)
[2017-07-28] MEDS: metFORMIN 500 MG TAB PO SCH (07:49)
[2017-07-28] MEDS: PANTOPRAZOLE 40 MG TABLET PO SCH ×2 (07:49→17:36)
[2017-07-28] MEDS: ASCORBIC ACID 500 MG TAB PO SCH (07:50)
[2017-07-28] MEDS: ATORVASTATIN 40 MG TAB PO SCH (07:51)
[2017-07-28] MEDS: CALCIUM CARBONATE 500 MG CHEWABLE PO SCH (07:52)
[2017-07-28] MEDS: DULoxetine HCL 60 MG CAPSULE.DR PO SCH (07:52)
[2017-07-28] MEDS: cefTRIAXone IN SWFI 1,000 MG/10 ML SYRINGE IVP SCH ×2 (07:52→23:18)
[2017-07-28] MEDS: CHOLECALCIFEROL 400 UNIT TAB PO SCH (07:52)
[2017-07-28] MEDS: MULTIVITAMINS, THERA 1 EACH TAB PO SCH (07:53)
[2017-07-28] MEDS: PIOGLITAZONE 15 MG TAB PO SCH (07:53)
[2017-07-28] MEDS: FAMOTIDINE 20 MG TAB PO SCH (07:53)
[2017-07-28] MEDS: OXYBUTYNIN 15 MG TAB.ER.24 PO SCH (07:53)
[2017-07-28] MEDS: COENZYME PO SCH (07:54)
[2017-07-28] MEDS: amLODIPine 5 MG TAB PO SCH (07:55)
[2017-07-28] MEDS: ATENOLOL 25 MG TAB PO SCH (07:55)
[2017-07-28] MEDS: LISINOPRIL 20 MG TAB PO SCH (07:55)
[2017-07-28 07:56] LABS: Anion Gap 7 mmol/L; Blood Urea Nitrogen 21 mg/dL (7-17); Calcium 8.5 mg/dL (8.4-10.2); Carbon Dioxide 25 mmol/L (22-30); Chloride 101 mmol/L (98-107); Glucose 222 mg/dL (74-99); Potassium 4.8 mmol/L (3.5-5.1); Sodium 133 mmol/L (137-145)
[2017-07-28 08:31] LABS: Band Neutrophils % 16 %; Eosinophils # (M) 0.39 k/uL (0-0.7); Lymphocytes # (M) 1.27 k/uL (1.0-4.8); Metamyelocytes # (M) 0.06 k/uL (0); Metamyelocytes % 1 %; Monocytes # (M) 1.54 k/uL (0-1.0); Myelocytes # (M) 0.22 k/uL (0); Myelocytes % 4 %; Neutrophils % (M) 23 %; Nucleated Red Blood Cells 0 /100 WBC (0-0); Total Cells Counted 200
[2017-07-28 08:32] LABS: Poikilocytosis (M) Present
[2017-07-28 08:33] LABS: Polychromasia Present
[2017-07-28 11:58] LABS: Glucose,Whole Blood 279 mg/dL (75-99)
--- NOTE | 2017-07-28 12:23 | CONS ---
CONSULTATION DATE OF CONSULTATION: 07/28/17 REASON FOR CONSULTATION: Anemia. HISTORY OF PRESENT ILLNESS: The patient is a 72-year-old pleasant white female who was recently diagnosed with with ovarian cancer in June of 2017 and she underwent surgery by Dr. Downey at [facility]. She started her 1st cycle of chemotherapy on July 17. She presents to the hospital confused and while in the emergency room was noted to have anemia and hence we were consulted in regards to this issue. Dr. Mulligan was also consulted was has seen the patient yesterday. The patient presently denies any abdominal pain. She has some diarrhea, since she had the chemotherapy 2 weeks ago. Usually has bowel movements anywhere from 2-3 a day, but denies any blood or mucus in the stool. The patient has been having some epigastric discomfort but no nausea, vomiting. She denies any heartburn. No recent NSAID use. She was noted to have neutropenia as well as anemia which was thought to be related to recent chemotherapy by Dr. Mulligan. She did have a colonoscopy about 3 years ago while she was living in [place] and according to the patient, was normal. PAST MEDICAL HISTORY: Significant for coronary artery disease, asthma, congestive heart failure. Diabetes mellitus, hypertension, chronic renal insufficiency, hypothyroidism. PAST SURGICAL HISTORY: Exploratory laparotomy with tumor removal and on June 03, 2017 at [facility] for ovarian cancer. MEDICATIONS: At home include: Hydrochlorothiazide, Flonase, Atorvastatin, insulin, oxycodone, trazodone, metformin, coenzyme, Actos, Calcium, vitamin C, Ventolin, Cymbalta, multivitamin, Norvasc, Lopressor, Synthroid, and Ditropan. ALLERGIES: TO CIPRO, SULFA. SOCIAL HISTORY: No smoking or alcohol use. FAMILY HISTORY: Unremarkable. REVIEW OF SYSTEMS: Cardiopulmonary: No chest pain, shortness of breath. Genitourinary: No dysuria, hematuria. Musculoskeletal unremarkable. Skin unremarkable. Endocrine unremarkable. Psychiatric unremarkable. Neurology unremarkable. ENT vision unremarkable. Constitutional: No recent weight loss. No fever, chills or night sweats. PHYSICAL EXAMINATION: Blood pressure 108/49, pulse 74, temperature 98. HEENT examination: Conjunctivae pink, sclerae anicteric. Oral cavity no lesions. Neck: No jugular venous distention or lymph node enlargement. Chest was clear to auscultation. HEART: Regular rate and rhythm. ABDOMEN: Soft. Bowel sounds are positive. No organomegaly. Extremities: No pedal edema. Skin no rashes. NEUROLOGIC: Alert and oriented x3. No focal deficits. LAB: At the time of admission to the hospital WBC 2.1, hemoglobin 8.5, platelets are 251. Today hemoglobin is 8.2, WBC is 5.5, and platelets are 272. Basic metabolic panel is within normal limits. IMPRESSION: This is a lady with history of ovarian cancer diagnosed in June of 2017 for which she underwent exploratory laparotomy with removal of the tumor followed by chemotherapy that was started about 2 weeks ago, presents to the hospital with altered mental status and anemia as well as neutropenia for which she was already evaluated by Dr. Mulligan and he thinks this is chemo induced. She denies any GI bleeding. Her white count today has improved to 5.5. RECOMMENDATIONS: 1. No indication to proceed with any endoscopy intervention at the present time. 2. Continue to monitor CBC on a daily basis. Thank you for this consultation. RAVEN / LIZBETH: [id number] /
--- NOTE | 2017-07-28 16:31 | P.PN ---
Subjective Progress Note Date: 07/28/17 Principal diagnosis: Febrile neutropenia Patient feeling much better. Possible discharge tomorrow. Objective - Vital Signs Vital signs: Vital Signs Temp 98.5 F 07/28/17 07:00 Pulse 91 07/28/17 07:00 Resp 20 07/28/17 07:00 BP 133/85 07/28/17 07:00 Pulse Ox 99 07/28/17 07:00 Intake & Output 07/27/17 07/28/17 07/28/17 18:59 06:59 18:59 Other: Voiding Method Toilet Diaper Diaper Incontinent Incontinent # Voids 2 1 - Exam Vital signs stable. Afebrile. Gen.: No acute distress HEENT: EOMI. No scleral icterus or pallor. Mucosa moist without lesions. Neck: Neck supple. Lungs: CTA-B without wheezing or rhonchi. Heart: RRR without murmurs. Trace bilateral LE edema. Abdomen: Soft, nontender, nondistended, with positive bowel sounds. MSK: 4 out of 4 strength in all 4 extremities. Neuro: Alert and oriented 3. No obvious gross neurologic deficits. Skin: No obvious jaundice or rash. Psych: Appropriate affect. - Labs CBC & Chem 7: 07/28/17 06:55 07/28/17 06:55 Labs: Abnormal Lab Results - Last 24 Hours (Table) 07/27/17 07/27/17 07/27/17 Range/Units 07:32 17:09 19:53 RBC (3.80-5.40) m/uL Hgb (11.4-16.0) gm/dL Hct (34.0-46.0) % MCV (80.0-100.0) fL MCH (25.0-35.0) pg MCHC (31.0-37.0) g/dL RDW (11.5-15.5) % Monocytes # (Manual) (0-1.0) k/uL Metamyelocytes # (Man) (0) k/uL Myelocytes # (Manual) (0) k/uL Sodium (137-145) mmol/L BUN (7-17) mg/dL Glucose (74-99) mg/dL POC Glucose (mg/dL) 219 H 177 H (75-99) mg/dL Iron 7 L (50-170) ug/dL Iron Saturation 2.41 L (12.00-45.00) 07/28/17 07/28/17 07/28/17 Range/Units 06:55 06:55 06:58 RBC 3.72 L (3.80-5.40) m/uL Hgb 8.2 L (11.4-16.0) gm/dL Hct 28.2 L (34.0-46.0) % MCV 75.8 L (80.0-100.0) fL MCH 22.1 L (25.0-35.0) pg MCHC 29.1 L (31.0-37.0) g/dL RDW 17.3 H (11.5-15.5) % Monocytes # (Manual) 1.54 H (0-1.0) k/uL Metamyelocytes # (Man) 0.06 H (0) k/uL Myelocytes # (Manual) 0.22 H (0) k/uL Sodium 133 L (137-145) mmol/L BUN 21 H (7-17) mg/dL Glucose 222 H (74-99) mg/dL POC Glucose (mg/dL) 244 H (75-99) mg/dL Iron (50-170) ug/dL Iron Saturation (12.00-45.00) 07/28/17 Range/Units 11:55 RBC (3.80-5.40) m/uL Hgb (11.4-16.0) gm/dL Hct (34.0-46.0) % MCV (80.0-100.0) fL MCH (25.0-35.0) pg MCHC (31.0-37.0) g/dL RDW (11.5-15.5) % Monocytes # (Manual) (0-1.0) k/uL Metamyelocytes # (Man) (0) k/uL Myelocytes # (Manual) (0) k/uL Sodium (137-145) mmol/L BUN (7-17) mg/dL Glucose (74-99) mg/dL POC Glucose (mg/dL) 279 H (75-99) mg/dL Iron (50-170) ug/dL Iron Saturation (12.00-45.00) Microbiology - Last 24 Hours (Table) 07/25/17 04:25 Blood Culture - Preliminary Blood No Growth after 72 hours Assessment and Plan Assessment: #1 ovarian cancer on chemotherapy #2 bicytopenia due to chemotherapy #3 UTI and sepsis #4 dehydration with lactic acidosis Plan: The patient does seem much improved. Neutropenia resolved. We'll stop G-CSF therapy. Antibiotics and hydration as per primary team. Possible discharge tomorrow as per primary team. No objections from oncology standpoint for discharge. Patient needs to follow up with her primary oncologist Dr. Downey after discharge. This was discussed with the patient and she was agreeable to the plan. All of her questions were answered.
[2017-07-28 17:24] LABS: Glucose,Whole Blood 156 mg/dL (75-99)
--- NOTE | 2017-07-28 20:37 | P.PN ---
Progress Note - Text Progress Note Date: 07/28/17 DATE OF SERVICE: 07/28/2017 PRESENTING COMPLAINT: Mental status changes HISTORY OF PRESENT ILLNESS: 74-year-old female with history significant for ovarian cancer with adjuvant chemotherapy every 3 weeks. First cycle was 2 weeks ago. Patient was found by a friend at her home to be very confused, and had fallen and hurt her left arm. Was brought to the emergency room for further evaluation and treatment found to be neutropenic as well as anemic with urinalysis as abnormal. Admitted for further evaluation and treatment of mental status changes UTI. INTERVAL HISTORY: 07/28/2017 Sitting up in bed appears comfortable. Able to answer questions appropriately.Antibiotics and IV hydration continue. Alert and oriented 3 no apparent confusion noted. Tolerating her diet, ambulatory to and from the bathroom without assistance and a steady gait. REVIEW OF SYSTEMS: Done for constitutional ,cardiovascular, GI, pulmonary with relevant findings as above. CURRENT MEDICATIONS Tylenol, albuterol, Norvasc, ascorbic acid, Tenormin, Lipitor, baclofen, Tums, ceftriaxone, cholecalciferol, Colace, Cymbalta, Pepcid, NovoLog, Synthroid, lisinopril, metformin, multivitamin, Zofran, Ditropan XL, oxycodone, Protonix, Actos, trazodone. PHYSICAL EXAM VITAL SIGNS: Temperature 98.5, pulse 91, respirations 20, blood pressure 133/85, oxygen saturation 99% on room air. GENERAL APPEARANCE: Sitting up in bed not in distress. HENT: Normocephalic, JVD not raised. Mass not palpable. Oral cavity normal, external appearance of ears and nose normal. EYES:Pupils equal. Conjunctiva normal. RESPIRATORY: Respiratory effort normal. Lungs diminished transient cough no sputum noted. CARDIOVASCULAR: First and second sounds normal. No edema. ABDOMEN: Soft. Liver and spleen not palpable. No tenderness. No mass palpable. PSYCHIATRY: Alert and oriented x3. Mood and affect normal. INVESTIGATIONS: Hemoglobin 8.2, white blood cell count 5.5, sodium 133, BUN 21, Accu-Cheks noted. ASSESSMENT: -Acute urinary tract infection with sepsis present on admission causing acute metabolic encephalopathy. -Acute renal failure likely prerenal present on admission now corrected. -Bicytopenia secondary to chemotherapy. -Ovarian cancer status post deep surgery and adjuvant chemotherapy. -Essential hypertension. -Hyperlipidemia. -Hypothyroidism PLAN: Continue IV fluids, antibiotic therapy, diet advanced patient is tolerating this. Bicytopenia is chemotherapy induced filgrastim was initiated by oncology. This will be continued until white count recovers adequately. Patient's mental status has returned to its baseline. Plan of care discussed with the patient at bedside she is in agreement. Discharge planning for the next 24-48 hours. We'll continue to follow closely. TOY DEPARTMENT MANAGER statement: Patient was seen and examined by nurse practitioner Judith Chaney and all elements of the case discussed with attending Dr. Martel
[2017-07-28 20:44] LABS: Glucose,Whole Blood 208 mg/dL (75-99)
--- NOTE | 2017-07-28 23:14 | PN ---
PROGRESS NOTE DATE OF SERVICE: 07/28/17 ATTENDING NOTE: Patient seen and examined by me. I discussed with nurse practitioner Ms. Chaney. This patient presents with acute confusion, found to have a UTI for E coli. Getting antibiotics. Doing much better. The patient also had ovarian cancer with ovarian surgery and then got chemotherapy. The patient presented with bicytopenia, feeling better. Confusion was gone. Has been out of bed. Tolerating a diet better. PHYSICAL EXAMINATION: On examination, afebrile, pulse 70, respiratory 20, blood pressure 120/60m pulse ox 98% on room air. Lungs are clear. Cardiovascular 1st and second sounds normal. INVESTIGATIONS: Creatinine 0.97, hemoglobin 8.2. ASSESSMENT: 1. Acute urinary tract infection with sepsis present on admission causing acute metabolic encephalopathy. 2. Acute renal failure likely prerenal present on admission now corrected. 3. Bicytopenia secondary to chemotherapy. 4. Ovarian cancer status post deep surgery and adjuvant chemotherapy. 5. Essential hypertension. 6. Hyperlipidemia. 7. Hypothyroidism. Continue with antibiotic. Encourage the patient to be out of bed up and about. Hoping the patient can be discharged tomorrow. Care was discussed the patient. MMODL / IJN: [id number] /
[2017-07-28] MEDS: traZODone HCL 50 MG TAB PO SCH (23:19)
[2017-07-29] MEDS: SODIUM CHLORIDE 0.9% 1,000 ML IV SCH ×2 (04:58→12:36)
[2017-07-29] MEDS: LEVOTHYROXINE 100 MCG TAB PO SCH (06:02)
[2017-07-29 07:22] LABS: Glucose,Whole Blood 267 mg/dL (75-99)
[2017-07-29] MEDS: INSULIN ASPART 100 UNIT/ML 1 ML 10 ML VIAL SQ SCH ×2 (07:53→12:35)
[2017-07-29] MEDS: CALCIUM CARBONATE 500 MG CHEWABLE PO SCH (07:56)
[2017-07-29] MEDS: CHOLECALCIFEROL 400 UNIT TAB PO SCH (07:56)
[2017-07-29] MEDS: FAMOTIDINE 20 MG TAB PO SCH (07:56)
[2017-07-29] MEDS: LISINOPRIL 20 MG TAB PO SCH (07:56)
[2017-07-29] MEDS: DULoxetine HCL 60 MG CAPSULE.DR PO SCH (07:56)
[2017-07-29] MEDS: OXYBUTYNIN 15 MG TAB.ER.24 PO SCH (07:56)
[2017-07-29] MEDS: ATENOLOL 25 MG TAB PO SCH (07:57)
[2017-07-29] MEDS: amLODIPine 5 MG TAB PO SCH (07:57)
[2017-07-29] MEDS: MULTIVITAMINS, THERA 1 EACH TAB PO SCH (07:57)
[2017-07-29] MEDS: PANTOPRAZOLE 40 MG TABLET PO SCH (07:57)
[2017-07-29] MEDS: metFORMIN 500 MG TAB PO SCH (07:57)
[2017-07-29] MEDS: ASCORBIC ACID 500 MG TAB PO SCH (07:58)
[2017-07-29] MEDS: COENZYME PO SCH (07:59)
[2017-07-29] MEDS: ATORVASTATIN 40 MG TAB PO SCH (07:59)
[2017-07-29] MEDS: PIOGLITAZONE 15 MG TAB PO SCH (07:59)
[2017-07-29] MEDS: cefTRIAXone IN SWFI 1,000 MG/10 ML SYRINGE IVP SCH (07:59)
[2017-07-29 08:42] VITALS: RESP 20; TEMP 98.7
[2017-07-29 11:12] VITALS: BP 122/56; PULSE 79
[2017-07-29 12:01] LABS: Glucose,Whole Blood 263 mg/dL (75-99)
--- NOTE | 2017-07-29 12:58 | P.DS ---
Providers Date of admission: 07/25/17 07:18 Expected date of discharge: 07/29/17 Attending physician: Milind Martel Consults: 07/27/17 13:00 Consult Physician Routine Consulting Provider: Kenia Gage Consult Reason/Comments: anemia Do you want consulting provider notified?: Yes 07/27/17 13:01 Consult Physician Routine Consulting Provider: Juan C Mulligan Consult Reason/Comments: anemia Do you want consulting provider notified?: Yes Primary care physician: Linda Sanders [facility] Course: FINAL DIAGNOSES: -Acute urinary tract infection with sepsis present on admission causing acute metabolic encephalopathy. -Acute renal failure likely prerenal present on admission now corrected. -Bicytopenia secondary to chemotherapy. -Ovarian cancer status post deep surgery and adjuvant chemotherapy. -Essential hypertension. -Hyperlipidemia. -Hypothyroidism HOSPTIAL COURSE: 74-year-old female who is status post adjuvant chemotherapy treatment admitted for acute confusion secondary to acute urinary tract infection with sepsis presentation admitted for the same. Was also found to be bi-cytopenic as result of chemotherapy. Home medications reordered, IV fluids initiated, antibiotics started, urine culture sent, consults placed to GI and oncology. GI evaluated the patient and on the basis that there has been a stable hemoglobin and no overt signs or symptoms of bleeding patient had recent chemotherapy treatment it is the belief that this is chemo induced rather then a GI source. Oncology evaluated the patient and agreed with hydration and antibiotics, patient's confusion improved as a result of these 2 interventions. Bicytopenia is believed to be chemotherapy-induced, filgrastim initiated and was continued until white count was adequately recovered. Patient is ambulatory in the room and hallway, tolerating her diet, moving her bowels, consultants agree patient's condition is improved and is stable for discharge. PHYSICAL EXAM: CARDIOVASCULAR: First second sounds noted no edema RESPIRATORY: Respiratory effort normal lung sounds clear to auscultation bilaterally. GI: Abdomen soft nontender liver and spleen not palpable. MUSKULOSKELETAL: Ambulatory in the room and hallway independently with steady gait. PSYCHIATRY: Alert and oriented 3, mood and affect normal. Patient was seen and examined by nurse practitioner Judith Chaney in all elements of the case discussed with attending Dr. Martel DISPOSITION: Discharged home with home care, follow-up with Dr. Downey per discharge instructions. Patient Condition at Discharge: Stable Plan - Discharge Summary Discharge Rx Participant: No New Discharge Prescriptions: New Atenolol [Tenormin] 25 mg PO DAILY #30 tab Cefuroxime Axetil [Ceftin] 500 mg PO BID #10 tab Continue traZODone HCL [Desyrel] 50 - 100 mg PO HS oxyCODONE HCL 10 mg PO Q6H PRN PRN Reason: Pain metFORMIN HCL [metFORMIN HCL ER] 1,000 mg PO DAILY Trospium Chloride [Sanctura] 20 mg PO BID Pioglitazone [Actos] 15 mg PO DAILY Lisinopril 40 mg PO DAILY DULoxetine HCL [Cymbalta] 60 mg PO DAILY Baclofen 10 mg PO QID PRN PRN Reason: Pain Albuterol Inhaler [Ventolin Hfa Inhaler] 2 inhalation INHALATION QID PRN PRN Reason: Dyspnea Multivitamin [Multivitamins Adult Gummies] 1 tab PO DAILY Calcium Carbonate [Calcium] 1,200 mg PO DAILY Ubidecarenone [Coenzyme Q10] 200 mcg PO DAILY Cholecalciferol [Vitamin D3] 200 units PO DAILY Ascorbic Acid [Vitamin C] 1,000 mg PO DAILY Insulin NPH Hum/Reg Insulin Hm [NovoLIN 70-30 100 UNIT/ML VIAL] 30 unit SQ AC -BRKFST Insulin NPH Hum/Reg Insulin Hm [NovoLIN 70-30 100 UNIT/ML VIAL] 30 unit SQ AC -SUPPER amLODIPine [Norvasc] 5 mg PO DAILY Atorvastatin [Lipitor] 40 mg PO HS Fluticasone Nasal [place] [Flonase Nasal [place]] 1 spray EA NOSTRIL DAILY PRN PRN Reason: Allergy Symptoms Hydrochlorothiazide [Hydrodiuril] 25 mg PO DAILY Levothyroxine Sodium [Synthroid] 100 mcg PO DAILY Oxybutynin Chloride [Ditropan XL] 5 mg PO DAILY Discontinued Metoprolol Tartrate [Lopressor] 12.5 mg PO BID Discharge Medication List Albuterol Inhaler [Ventolin Hfa Inhaler] 2 inhalation INHALATION QID PRN [History] Ascorbic Acid [Vitamin C] 1,000 mg PO DAILY 01/06/16 [History] Baclofen 10 mg PO QID PRN 01/06/16 [History] Calcium Carbonate [Calcium] 1,200 mg PO DAILY 01/06/16 [History] Cholecalciferol [Vitamin D3] 200 units PO DAILY 01/06/16 [History] DULoxetine HCL [Cymbalta] 60 mg PO DAILY 01/06/16 [History] Lisinopril 40 mg PO DAILY 01/06/16 [History] Multivitamin [Multivitamins Adult Gummies] 1 tab PO DAILY 01/06/16 [History] Pioglitazone [Actos] 15 mg PO DAILY 01/06/16 [History] Trospium Chloride [Sanctura] 20 mg PO BID 01/06/16 [History] Ubidecarenone [Coenzyme Q10] 200 mcg PO DAILY 01/06/16 [History] metFORMIN HCL [metFORMIN HCL ER] 1,000 mg PO DAILY 01/06/16 [History] oxyCODONE HCL 10 mg PO Q6H PRN 01/06/16 [History] traZODone HCL [Desyrel] 50 - 100 mg PO HS 01/06/16 [History] Insulin NPH Hum/Reg Insulin Hm [NovoLIN 70-30 100 UNIT/ML VIAL] 30 unit SQ AC- BRKFST 03/17/16 [History] Insulin NPH Hum/Reg Insulin Hm [NovoLIN 70-30 100 UNIT/ML VIAL] 30 unit SQ AC- SUPPER 03/17/16 [History] Atorvastatin [Lipitor] 40 mg PO HS 07/25/17 [History] Fluticasone Nasal [place] [Flonase Nasal [place]] 1 spray EA NOSTRIL DAILY PRN 07/25 [History] Hydrochlorothiazide [Hydrodiuril] 25 mg PO DAILY 07/25/17 [History] Levothyroxine Sodium [Synthroid] 100 mcg PO DAILY 07/25/17 [History] Oxybutynin Chloride [Ditropan XL] 5 mg PO DAILY 07/25/17 [History] amLODIPine [Norvasc] 5 mg PO DAILY 07/25/17 [History] Atenolol [Tenormin] 25 mg PO DAILY #30 tab 07/29/17 [Rx] Cefuroxime Axetil [Ceftin] 500 mg PO BID #10 tab 07/29/17 [Rx] Follow up Appointment(s)/Referral(s): Linda Sanders MD [Primary Care Provider] - 1 Week Kalee Downey MD [REFERRING] - 2 Weeks [facility] Visiting Nurse, [NON-STAFF] - 1 Week Ambulatory/Diagnostic Orders: Basic Metabolic Panel [LAB.AMB] Location: Determined By Patient Complete Blood Count w/diff [LAB.AMB] Location: Determined By Patient Activity/Diet/Wound Care/Special Instructions: Heart Healthy/consistent carbohydrate diet Discharge Disposition: HOME WITH HOME HEALTH SERVICES
--- NOTE | 2017-07-30 08:37 | DS ---
DISCHARGE SUMMARY DATE OF SERVICE: 07/29/17 The patient is seen and examined by me. I discussed with nurse practitioner, Froylankirstin. The patient is doing well, up and about. Eating much better. No fever. EXAM: Lungs are clear. Cardiovascular 1st and 2nd sounds normal. DISCHARGE DIAGNOSES: 1. Acute urinary tract infection with sepsis present on admission. 2. Acute renal failure, resolved. PLAN: Patient will be going home on Ceftin to get another 5 more days. Care was discussed with the patient. Questions were answered. Discharge planning more than 35 minutes. MMODL / IJN: [id number] /
--- NOTE | 2017-08-01 10:33 | CDI ---
Last Revision, June 2017 Documentation Clarification Form Date: 08/01/2017 10:19:00 AM From: Shaynaalcides Oliveira Phone: If you have a question about this query, please contact Abigail Catalan , Welding Teacher, Tushar Alma Delia Rivera at [phone] between 8am and 5pm. Admit Date: 07/25/2017 7:18:00 AM Patient Name: Shital Mckinnon Visit Number: [id number] Discharge Date: 07/29/17 ATTENTION: The Clinical Documentation Specialists (CDI) and [facility] Coding Staff appreciate your assistance in clarifying documentation. Please respond to the clarification below the line at the bottom and electronically sign. The CDI & [facility] Coding staff will review the response and follow-up if needed. Please note: Queries are made part of the Legal Health Record. If you have any questions, please contact the author of this message via ITS. Dr. Milind Martel History/Risk Factors: HTN, DM Type 1, UTI, Current BUN/CR/GFR: BUN -31, 29, 42, 53, 56; Cr- 1.62, 1.71, 1.26, 1.03, 0.97 Patients Baseline: BUN/CR/GFR: not documented Treatment: IVF, IV Rocephin Patients medications include: Norvasc, Hydrodiuril, Insulin, Lisinopril, Metformin, Actos, Desyrel In order to capture the severity of condition, please clarify if the condition signifies: CKD Stage 1 (GFR > 90) CKD Stage 2 (GFR 60-89) CKD Stage 3 (GFR 30-59) CKD Stage 4 (GFR 15-29) CKD Stage 5 (GFR <15) ESRD Other, please specify Unable to determine Please continue to document in your progress notes and discharge summary in order to capture severity of illness and risk of mortality. Include clinical findings that support your diagnosis. NO CKD MTDD
== END 2017-07-29 16:50 | disposition home health service (06) | DRG 871 ==
LOC: EC 03:00 → 5MS5E 07:18 → 6PED 10:50 → 5MS5E 20:21 → 5ONC 07-26 15:36
PROVIDERS: ADMIT Hospitalist; ATTEND Hospitalist
DX: A41.51 Sepsis due to Escherichia coli [E. coli] (principal); G92 Toxic encephalopathy; N17.9 Acute kidney failure, unspecified; D70.1 Agranulocytosis secondary to cancer chemotherapy; E10.22 Type 1 diabetes mellitus with diabetic chronic kidney disease; D64.81 Anemia due to antineoplastic chemotherapy; E10.65 Type 1 diabetes mellitus with hyperglycemia; E87.2 Acidosis; E87.1 Hypo-osmolality and hyponatremia; N39.0 Urinary tract infection, site not specified; C56.9 Malignant neoplasm of unspecified ovary; E86.0 Dehydration; E87.5 Hyperkalemia; I50.9 Heart failure, unspecified; R50.81 Fever presenting with conditions classified elsewhere; I10 Essential (primary) hypertension; E78.5 Hyperlipidemia, unspecified; J45.909 Unspecified asthma, uncomplicated; I25.10 Atherosclerotic heart disease of native coronary artery without angina pectoris; E03.9 Hypothyroidism, unspecified; T45.1X5A Adverse effect of antineoplastic and immunosuppressive drugs, initial encounter; M85.80 Other specified disorders of bone density and structure, unspecified site; M19.91 Primary osteoarthritis, unspecified site; L98.499 Non-pressure chronic ulcer of skin of other sites with unspecified severity; Z79.4 Long term (current) use of insulin; Z79.51 Long term (current) use of inhaled steroids; Z79.899 Other long term (current) drug therapy; Z87.891 Personal history of nicotine dependence; Z90.49 Acquired absence of other specified parts of digestive tract; Z90.710 Acquired absence of both cervix and uterus; Z96.653 Presence of artificial knee joint, bilateral; Z98.42 Cataract extraction status, left eye; Z98.41 Cataract extraction status, right eye; Z86.010 Personal history of colon polyps; Z87.01 Personal history of pneumonia (recurrent); Z88.1 Allergy status to other antibiotic agents; Z88.0 Allergy status to penicillin; Z88.2 Allergy status to sulfonamides
CPT/HCPCS: 36415; 71045; 80048; 80053; 81001; 82728; 83540; 83550; 83605; 83735; 85025; 85027; 87040; 87077; 87086; 87186; 93005; 96361; 96374; 99285

== ENCOUNTER 2017-08-02 15:31 | Emergency (ER) | payer MEDICARE ==
[2017-08-02] MEDS ORDERED: SODIUM CHLORIDE 0.9% 1,000 ML IV STA (16:10)
[2017-08-02] MEDS ORDERED: IBUPROFEN 600 MG TAB PO STA (16:14)
--- NOTE | 2017-08-02 16:14 | ED ---
General Adult HPI - General Chief complaint: Fever Stated complaint: Dr Centeno/Ayse Flu Time Seen by Provider: 08/02/17 15:58 Source: patient, RN notes reviewed, old records reviewed Mode of arrival: wheelchair Limitations: no limitations - History of Present Illness Initial comments: Patient's a 72-year-old female who presents emergency room today with a chief complaint of an influenza swab. She states that she's had increased cough congestion over the last 2 days. She states she was admitted to the hospital recently for urinary tract infection and sepsis. She states she was discharged home currently on antibiotics. Patient states that she had a decubitus ulcer that she has a visiting nurse come to check. She states she was told today by the visiting nurse that it seems to be healing well but due to her cough congestion she was advised that she should be checked for the flu. She states she drank a urgent care and also the family doctor but neither place had flu swabs to check in test. She states she was advised coming to the emergency room. Patient does admit to feeling hot and cold on Tylenol or Motrin today. Patient does admit to increased cough congestion. She states she had some cough congestion last week but has gotten worse over the last 2 days. Patient denies any recent shortness of breath, chest pain, abdominal pain, nausea or vomiting, numbness or tingling, constipation or diarrhea, headaches or visual changes, or any other complaints. - Related Data Home Medications Medication Instructions Recorded Confirmed Ascorbic Acid [Vitamin C] 1,000 mg PO DAILY 01/06/16 08/02/17 Baclofen 10 mg PO QID PRN 01/06/16 08/02/17 Calcium Carbonate [Calcium] 1,200 mg PO DAILY 01/06/16 08/02/17 Cholecalciferol [Vitamin D3] 200 units PO DAILY 01/06/16 08/02/17 DULoxetine HCL [Cymbalta] 60 mg PO DAILY 01/06/16 08/02/17 Multivitamin [Multivitamins Adult 1 tab PO DAILY 01/06/16 08/02/17 Gummies] Pioglitazone [Actos] 15 mg PO DAILY 01/06/16 08/02/17 Trospium Chloride [Sanctura] 20 mg PO BID 01/06/16 08/02/17 Ubidecarenone [Coenzyme Q10] 200 mcg PO DAILY 01/06/16 08/02/17 metFORMIN HCL [metFORMIN HCL ER] 1,000 mg PO DAILY 01/06/16 08/02/17 oxyCODONE HCL 10 mg PO Q6H PRN 01/06/16 08/02/17 traZODone HCL [Desyrel] 50 - 100 mg PO HS 01/06/16 08/02/17 Insulin NPH Hum/Reg Insulin Hm 26 unit SQ AC-BRKFST 03/17/16 08/02/17 [NovoLIN 70-30 100 UNIT/ML VIAL] Insulin NPH Hum/Reg Insulin Hm 30 unit SQ AC-SUPPER 03/17/16 08/02/17 [NovoLIN 70-30 100 UNIT/ML VIAL] Atorvastatin [Lipitor] 40 mg PO HS 07/25/17 08/02/17 Fluticasone Nasal [place] [Flonase 1 spray EA NOSTRIL DAILY PRN 07/25/17 08/02/17 Nasal [place]] Hydrochlorothiazide [Hydrodiuril] 25 mg PO DAILY 07/25/17 08/02/17 Levothyroxine Sodium [Synthroid] 100 mcg PO DAILY 07/25/17 08/02/17 Oxybutynin Chloride [Ditropan XL] 5 mg PO DAILY 07/25/17 08/02/17 amLODIPine [Norvasc] 5 mg PO DAILY 07/25/17 08/02/17 Previous Rx's Medication Instructions Recorded Cefuroxime Axetil [Ceftin] 500 mg PO BID #10 tab 07/29/17 Lisinopril 40 mg PO HS #0 07/29/17 Metoprolol Tartrate [Lopressor] 12.5 mg PO BID #60 dose 07/29/17 Oseltamivir [Tamiflu] 75 mg PO Q12HR 5 Days cap 08/02/17 Allergies Allergy/AdvReac Type Severity Reaction Status Date / Time amoxicillin Allergy Rash/Hives Verified 08/02/17 16:14 ciprofloxacin [From Cipro] Allergy Dyspnea Verified 08/02/17 16:14 ciprofloxacin HCl Allergy Dyspnea Verified 08/02/17 16:14 [From Cipro] Sulfa (Sulfonamide Allergy Unknown Verified 08/02/17 16:14 Antibiotics) Review of Systems ROS Statement: Those systems with pertinent positive or pertinent negative responses have been documented in the HPI. ROS Other: All systems not noted in ROS Statement are negative. Past Medical History Past Medical History: Asthma, Coronary Artery Disease (CAD), Cancer, Diabetes Mellitus, Hyperlipidemia, Hypertension, Osteoarthritis (OA), Pneumonia, Renal Disease, Thyroid Disorder Additional Past Medical History / Comment(s): R sided ovarian cancer diagnosed about 06/03/17 with exploratory laparotomy with tumor removal and lysis of adhesions-pt has had 1st IV chemo and will get 5 more cycles ([facility]) , current sacral ulcer-receiving wound care at home by home care nurse, IDDM type II, CKD, bronchitis, osteopenia, cardiac murmur, possible CAD, chronic back pain, recent UTI, urine incontinence at times. History of Any Multi-Drug Resistant Organisms: None Reported Past Surgical History: Appendectomy, Cholecystectomy, Hysterectomy, Joint Replacement, Tonsillectomy Additional Past Surgical History / Comment(s): 06/2017 Exploratory laparotomy with tumor removal and lysis of adhesions done at [facility], bilateral total knees, bilateral cataract removals, colonoscopies-last one normal, one prior had multiple benign polypectomies, D&C. Past Anesthesia/Blood Transfusion Reactions: No Reported Reaction Additional Past Anesthesia/Blood Transfusion Reaction / Comment(s): Unsure of family history, patient was adopted. Past Psychological History: Bipolar Smoking Status: Former smoker Past Alcohol Use History: None Reported Past Drug Use History: None Reported - Past Family History Father History Unknown: Yes Additional Family Medical History / Comment(s): Pt is adopted and does not know parents medical history. General Exam - General Exam Comments Initial Comments: General: The patient is awake and alert, in no distress, and does not appear acutely ill. Eye: Pupils are equal, round and reactive to light, extra-ocular movements are intact. No nystagmus. There is normal conjunctiva bilaterally. No signs of icterus. Ears, nose, mouth and throat: There are moist mucous membranes and no oral lesions. Neck: The neck is supple, there is no tenderness or JVD. Cardiovascular: There is a regular rate and rhythm. No murmur, rub or gallop is appreciated. Respiratory: Lungs are clear to auscultation, respirations are non-labored, breath sounds are equal. No wheezes, stridor, rales, or rhonchi. Musculoskeletal: Normal ROM, no tenderness. Strength 5/5. Sensation intact. Pulses equal bilaterally 2+. Neurological: A&O x 3. CN II-XII intact, There are no obvious motor or sensory deficits. Coordination appears grossly intact. Speech is normal. Skin: Skin is warm and dry and no rashes or lesions are noted. Psychiatric: Cooperative, appropriate mood & affect, normal judgment. Limitations: no limitations Course Vital Signs 08/02/17 08/02/17 15:46 19:01 Temperature 101.3 F H 97.6 F Pulse Rate 108 H 88 Respiratory 18 16 Rate Blood Pressure 132/60 159/65 O2 Sat by Pulse 96 93 L Oximetry Medical Decision Making - Medical Decision Making Patient reexamined at this time shows no signs of distress. Patient was seen with attending physician Dr. Edwards. Patient's initial labs reviewed. Lactic acid was elevated. Was given a bolus of IV fluids here in the emergency room. Repeat lactic acid 1.4. Patient doing well. Clinically no signs of distress. Patient is influenza be positive. She does admit to increased cough congestion that started yesterday. Options were discussed with patient about admission. Patient's UTI symptoms much improved. Urinalysis looking good here in the emergency room. Patient does admit that home nurses have been keeping eye on the decubitus ulcer and states that it's healing well. She states she would like to be discharged home. At this times felt the patient is okay to be discharged with close follow-up in the office tomorrow. Advised return here to the emergency room if any symptoms increase or worsen. - Lab Data Result diagrams: 08/02/17 16:35 08/02/17 16:35 Lab Results 08/02/17 08/02/17 08/02/17 Range/Units 16:35 16:35 16:35 WBC 11.3 H (3.8-10.6) k/uL RBC 3.75 L (3.80-5.40) m/uL Hgb 8.1 L (11.4-16.0) gm/dL Hct 27.7 L (34.0-46.0) % MCV 73.8 L (80.0-100.0) fL MCH 21.7 L (25.0-35.0) pg MCHC 29.4 L (31.0-37.0) g/dL RDW 19.0 H (11.5-15.5) % Plt Count 293 (150-450) k/uL Neutrophils % (Manual) 82 % Band Neutrophils % 3 % Lymphocytes % (Manual) 7 % Monocytes % (Manual) 5 % Eosinophils % (Manual) 3 % Basophils % (Manual) 1 % Metamyelocytes % 1 % Neutrophils # (Manual) 9.60 H (1.3-7.7) k/uL Lymphocytes # (Manual) 0.79 L (1.0-4.8) k/uL Monocytes # (Manual) 0.57 (0-1.0) k/uL Eosinophils # (Manual) 0.34 (0-0.7) k/uL Basophils # (Manual) 0.11 (0-0.2) k/uL Metamyelocytes # (Man) 0.11 H (0) k/uL Nucleated RBCs 1 H (0-0) /100 WBC Manual Slide Review Performed Toxic Granulation Present Polychromasia Present Hypochromasia Marked Poikilocytosis (manual Present Anisocytosis Slight Microcytosis Moderate Sodium 137 (137-145) mmol/L Potassium 3.8 (3.5-5.1) mmol/L Chloride 96 L (98-107) mmol/L Carbon Dioxide 30 (22-30) mmol/L Anion Gap 11 mmol/L BUN 16 (7-17) mg/dL Creatinine 0.90 (0.52-1.04) mg/dL Est GFR (MDRD) Af Amer >60 (>60 ml/min/1.73 sqM) Est GFR (MDRD) Non-Af >60 (>60 ml/min/1.73 sqM) Glucose 155 H (74-99) mg/dL Plasma Lactic Acid Konstantin 3.2 H* (0.7-2.0) mmol/L Calcium 8.4 (8.4-10.2) mg/dL Total Bilirubin 0.2 (0.2-1.3) mg/dL AST 30 (14-36) U/L ALT 23 (9-52) U/L Alkaline Phosphatase 153 H (38-126) U/L Total Protein 5.9 L (6.3-8.2) g/dL Albumin 3.0 L (3.5-5.0) g/dL Urine Color Urine Appearance (Clear) Urine pH (5.0-8.0) Ur Specific [place] (1.001-1.035) Urine Protein (Negative) Urine Glucose (UA) (Negative) Urine Ketones (Negative) Urine Blood (Negative) Urine Nitrite (Negative) Urine Bilirubin (Negative) Urine Urobilinogen (<2.0) mg/dL Ur Leukocyte Esterase (Negative) Influenza Type A RNA (Not Detectd) Influenza Type B (PCR) (Not Detectd) 08/02/17 08/02/17 08/02/17 Range/Units 16:35 17:25 18:51 WBC (3.8-10.6) k/uL RBC (3.80-5.40) m/uL Hgb (11.4-16.0) gm/dL Hct (34.0-46.0) % MCV (80.0-100.0) fL MCH (25.0-35.0) pg MCHC (31.0-37.0) g/dL RDW (11.5-15.5) % Plt Count (150-450) k/uL Neutrophils % (Manual) % Band Neutrophils % % Lymphocytes % (Manual) % Monocytes % (Manual) % Eosinophils % (Manual) % Basophils % (Manual) % Metamyelocytes % % Neutrophils # (Manual) (1.3-7.7) k/uL Lymphocytes # (Manual) (1.0-4.8) k/uL Monocytes # (Manual) (0-1.0) k/uL Eosinophils # (Manual) (0-0.7) k/uL Basophils # (Manual) (0-0.2) k/uL Metamyelocytes # (Man) (0) k/uL Nucleated RBCs (0-0) /100 WBC Manual Slide Review Toxic Granulation Polychromasia Hypochromasia Poikilocytosis (manual Anisocytosis Microcytosis Sodium (137-145) mmol/L Potassium (3.5-5.1) mmol/L Chloride (98-107) mmol/L Carbon Dioxide (22-30) mmol/L Anion Gap mmol/L BUN (7-17) mg/dL Creatinine (0.52-1.04) mg/dL Est GFR (MDRD) Af Amer (>60 ml/min/1.73 sqM) Est GFR (MDRD) Non-Af (>60 ml/min/1.73 sqM) Glucose (74-99) mg/dL Plasma Lactic Acid Konstantin 1.4 (0.7-2.0) mmol/L Calcium (8.4-10.2) mg/dL Total Bilirubin (0.2-1.3) mg/dL AST (14-36) U/L ALT (9-52) U/L Alkaline Phosphatase (38-126) U/L Total Protein (6.3-8.2) g/dL Albumin (3.5-5.0) g/dL Urine Color Yellow Urine Appearance Clear (Clear) Urine pH 5.0 (5.0-8.0) Ur Specific [place] 1.011 (1.001-1.035) Urine Protein Trace H (Negative) Urine Glucose (UA) Negative (Negative) Urine Ketones Negative (Negative) Urine Blood Negative (Negative) Urine Nitrite Negative (Negative) Urine Bilirubin Negative (Negative) Urine Urobilinogen <2.0 (<2.0) mg/dL Ur Leukocyte Esterase Negative (Negative) Influenza Type A RNA Not Detected (Not Detectd) Influenza Type B (PCR) Detected H (Not Detectd) Disposition Clinical Impression: Influenza B Disposition: HOME SELF-CARE Condition: Good Instructions: Influenza (ED) Additional Instructions: Please use medication as discussed. Please follow-up with family doctor in the next 2 days. Please return to emergency room if the symptoms increase or worsen or for any other concerns. Prescriptions: Oseltamivir [Tamiflu] 75 mg PO Q12HR 5 Days cap Referrals: Linda Sanders MD [Primary Care Provider] - 1-2 days Time of Disposition: 19:43
[2017-08-02 16:52] LABS: Anisocytosis Slight; HCT 27.7 % (34.0-46.0); HGB 8.1 gm/dL (11.4-16.0); Hypochromasia Marked; MCH 21.7 pg (25.0-35.0); MCHC 29.4 g/dL (31.0-37.0); MCV 73.8 fL (80.0-100.0); Mean Platelet Volume 7.3; Microcytosis Moderate; Platelet Count 293 k/uL (150-450); RBC 3.75 m/uL (3.80-5.40)
[2017-08-02 16:56] LABS: ALT 23 U/L (9-52); AST 30 U/L (14-36); Alkaline Phosphatase 153 U/L (38-126); Anion Gap 11 mmol/L; Blood Urea Nitrogen 16 mg/dL (7-17); Calcium 8.4 mg/dL (8.4-10.2); Carbon Dioxide 30 mmol/L (22-30); Chloride 96 mmol/L (98-107); Glucose 155 mg/dL (74-99); Potassium 3.8 mmol/L (3.5-5.1); Sodium 137 mmol/L (137-145); Total Bilirubin 0.2 mg/dL (0.2-1.3); Total Protein 5.9 g/dL (6.3-8.2)
--- NOTE | 2017-08-02 17:16 | XR ---
EXAMINATION TYPE: XR chest 2V DATE OF EXAM: 08/02/2017 COMPARISON: 07/25/2017 HISTORY: Cough and congestion TECHNIQUE: Frontal and lateral views of the chest are obtained. FINDINGS: There is a neurostimulator in the thoracic spine. There is coarsening of interstitial alicia ings. There is no gross heart failure. Thoracic aorta is atheromatous. I see no pleural effusion. IMPRESSION: Pulmonary fibrotic changes. No definite acute lung disease. Atheromatous aorta. No signi ficant change.
[2017-08-02 17:31] LABS: Band Neutrophils % 3 %; Basophils # (M) 0.11 k/uL (0-0.2); Eosinophils # (M) 0.34 k/uL (0-0.7); Metamyelocytes # (M) 0.11 k/uL (0); Metamyelocytes % 1 %; Monocytes # (M) 0.57 k/uL (0-1.0); Neutrophils % (M) 82 %; Nucleated Red Blood Cells 1 /100 WBC (0-0); Total Cells Counted 200
[2017-08-02 17:32] LABS: Lymphocytes # (M) 0.79 k/uL (1.0-4.8); Poikilocytosis (M) Present; Polychromasia Present; WBC 11.3 k/uL (3.8-10.6)
[2017-08-02 17:34] LABS: Toxic Granulation Present
[2017-08-02 17:40] LABS: Appearance,Urine Clear (Clear); Bilirubin,Urine Negative (Negative); Blood,Urine Negative (Negative); Color,Urine Yellow; Glucose,Urine (UA) Negative (Negative); Ketones,Urine Negative (Negative); Leukocyte Esterase,Urine Negative (Negative); Nitrite,Urine Negative (Negative); Protein,Urine Trace (Negative); Specific Gravity,Urine 1.011 (1.001-1.035); Urobilinogen,Urine <2.0 mg/dL (<2.0)
[2017-08-02] MEDS ORDERED: oxyCODONE ER 10 MG TAB.ER.12H PO STA (18:00)
[2017-08-02] MEDS ORDERED: SODIUM CHLORIDE 0.9% 500 ML IV STA (18:00)
[2017-08-02 19:10] VITALS: BP 159/65; PULSE 88; RESP 16; TEMP 97.6
[2017-08-02] MEDS ORDERED: OSELTAMIVIR 75 MG CAP PO STA (19:42)
== END 2017-08-02 19:57 | disposition home or self-care (01) ==
LOC: EC 15:31
DX: J10.1 Influenza due to other identified influenza virus with other respiratory manifestations (principal); E11.22 Type 2 diabetes mellitus with diabetic chronic kidney disease; I12.9 Hypertensive chronic kidney disease with stage 1 through stage 4 chronic kidney disease, or unspecified chronic kidney disease; N18.9 Chronic kidney disease, unspecified; I25.10 Atherosclerotic heart disease of native coronary artery without angina pectoris; F31.9 Bipolar disorder, unspecified; E78.5 Hyperlipidemia, unspecified; E07.9 Disorder of thyroid, unspecified; Z85.43 Personal history of malignant neoplasm of ovary; Z87.891 Personal history of nicotine dependence; Z87.01 Personal history of pneumonia (recurrent); Z88.0 Allergy status to penicillin; Z88.1 Allergy status to other antibiotic agents; Z88.2 Allergy status to sulfonamides; Z79.84 Long term (current) use of oral hypoglycemic drugs; Z79.4 Long term (current) use of insulin; Z79.899 Other long term (current) drug therapy
CPT/HCPCS: 36415; 71046; 80053; 81003; 83605; 85025; 87040; 87077; 87086; 87186; 87502; 96360; 96361; 99284

== ENCOUNTER 2017-08-24 11:06 | Emergency (ER) | payer MEDICARE ==
--- NOTE | 2017-08-24 12:03 | ED ---
General Adult HPI - General Chief complaint: Arrhythmia/Palpitations Stated complaint: abnormal EKG, Poss AFIB Time Seen by Provider: 08/24/17 11:50 Source: patient, RN notes reviewed Mode of arrival: wheelchair Limitations: no limitations - History of Present Illness Initial comments: Patient is a pleasant 72-year-old female presenting to the emergency department with concern for possible atrial fibrillation. Patient states she was on a monitor and oncology's office and the practitioner there question whether or not she could be in atrial fibrillation. No history of atrial fibrillation. Patient denies any palpitations. Patient states she does sometimes have an irregular heartbeat. No chest pain or dyspnea. Patient states she is in between chemotherapy at this time for ovarian cancer. Patient has no complaints at this time. - Related Data Home Medications Medication Instructions Recorded Confirmed Ascorbic Acid [Vitamin C] 1,000 mg PO DAILY 01/06/16 08/24/17 Baclofen 10 mg PO QID PRN 01/06/16 08/24/17 Calcium Carbonate [Calcium] 1,200 mg PO DAILY 01/06/16 08/24/17 Cholecalciferol [Vitamin D3] 200 units PO DAILY 01/06/16 08/24/17 DULoxetine HCL [Cymbalta] 60 mg PO DAILY 01/06/16 08/24/17 Multivitamin [Multivitamins Adult 1 tab PO DAILY 01/06/16 08/24/17 Gummies] Pioglitazone [Actos] 15 mg PO DAILY 01/06/16 08/24/17 Trospium Chloride [Sanctura] 20 mg PO BID 01/06/16 08/24/17 Ubidecarenone [Coenzyme Q10] 200 mcg PO DAILY 01/06/16 08/24/17 metFORMIN HCL [metFORMIN HCL ER] 1,000 mg PO DAILY 01/06/16 08/24/17 oxyCODONE HCL 10 mg PO Q6H PRN 01/06/16 08/24/17 traZODone HCL [Desyrel] 50 - 100 mg PO HS 01/06/16 08/24/17 Insulin NPH Hum/Reg Insulin Hm 26 unit SQ AC-BRKFST 03/17/16 08/24/17 [NovoLIN 70-30 100 UNIT/ML VIAL] Insulin NPH Hum/Reg Insulin Hm 30 unit SQ AC-SUPPER 03/17/16 08/24/17 [NovoLIN 70-30 100 UNIT/ML VIAL] Atorvastatin [Lipitor] 40 mg PO HS 07/25/17 08/24/17 Fluticasone Nasal Industry [Flonase 1 spray EA NOSTRIL DAILY PRN 07/25/17 08/24/17 Nasal Industry] Hydrochlorothiazide [Hydrodiuril] 25 mg PO DAILY 07/25/17 08/24/17 Levothyroxine Sodium [Synthroid] 100 mcg PO DAILY 07/25/17 08/24/17 Oxybutynin Chloride [Ditropan XL] 5 mg PO DAILY 07/25/17 08/24/17 amLODIPine [Norvasc] 5 mg PO DAILY 07/25/17 08/24/17 Previous Rx's Medication Instructions Recorded Lisinopril 40 mg PO HS #0 07/29/17 Metoprolol Tartrate [Lopressor] 12.5 mg PO BID #60 dose 07/29/17 Allergies Allergy/AdvReac Type Severity Reaction Status Date / Time amoxicillin Allergy Rash/Hives Verified 08/24/17 11:59 ciprofloxacin [From Cipro] Allergy Dyspnea Verified 08/24/17 11:59 ciprofloxacin HCl Allergy Dyspnea Verified 08/24/17 11:59 [From Cipro] Sulfa (Sulfonamide Allergy Unknown Verified 08/24/17 11:59 Antibiotics) Review of Systems ROS Statement: Those systems with pertinent positive or pertinent negative responses have been documented in the HPI. ROS Other: All systems not noted in ROS Statement are negative. Constitutional: Denies: fever Eyes: Denies: eye pain ENT: Denies: ear pain Respiratory: Denies: cough Cardiovascular: Denies: chest pain, palpitations Endocrine: Denies: fatigue Gastrointestinal: Denies: abdominal pain Genitourinary: Denies: dysuria Musculoskeletal: Denies: back pain Skin: Denies: rash Neurological: Denies: weakness Past Medical History Past Medical History: Asthma, Coronary Artery Disease (CAD), Cancer, Diabetes Mellitus, Hyperlipidemia, Hypertension, Osteoarthritis (OA), Pneumonia, Renal Disease, Thyroid Disorder Additional Past Medical History / Comment(s): R sided ovarian cancer diagnosed about 06/03/17 with exploratory laparotomy with tumor removal and lysis of adhesions-pt has had 1st IV chemo and will get 5 more cycles ([facility]) , current sacral ulcer-receiving wound care at home by home care nurse, IDDM type II, CKD, bronchitis, osteopenia, cardiac murmur, possible CAD, chronic back pain, recent UTI, urine incontinence at times. History of Any Multi-Drug Resistant Organisms: None Reported Past Surgical History: Appendectomy, Cholecystectomy, Hysterectomy, Joint Replacement, Tonsillectomy Additional Past Surgical History / Comment(s): 06/2017 Exploratory laparotomy with tumor removal and lysis of adhesions done at [facility], bilateral total knees, bilateral cataract removals, colonoscopies-last one normal, one prior had multiple benign polypectomies, D&C. Past Anesthesia/Blood Transfusion Reactions: No Reported Reaction Additional Past Anesthesia/Blood Transfusion Reaction / Comment(s): Unsure of family history, patient was adopted. Past Psychological History: Bipolar Smoking Status: Former smoker Past Alcohol Use History: None Reported Past Drug Use History: None Reported - Past Family History Father History Unknown: Yes Additional Family Medical History / Comment(s): Pt is adopted and does not know parents medical history. General Exam Limitations: no limitations General appearance: alert, in no apparent distress Head exam: Present: atraumatic Eye exam: Present: normal appearance, PERRL ENT exam: Present: normal oropharynx Neck exam: Present: normal inspection Respiratory exam: Present: normal lung sounds bilaterally Cardiovascular Exam: Present: regular rate, normal rhythm GI/Abdominal exam: Present: soft. Absent: tenderness Extremities exam: Present: normal inspection Neurological exam: Present: alert Psychiatric exam: Present: normal affect, normal mood Skin exam: Present: normal color Course Vital Signs 08/24/17 11:09 Temperature 99.0 F Pulse Rate 104 H Respiratory 17 Rate Blood Pressure 115/51 O2 Sat by Pulse 96 Oximetry - Reevaluation(s) Reevaluation #1: 08/24/17 12:11 Repeat EKG shows normal sinus rhythm and 91. TN 140. QRS 126. QT 402. QTC 494. Normal axis. Right bundle branch block. No acute ST change. EKG Findings - EKG Comments: EKG Findings:: Sinus tachycardia at 103. Premature H a complex is are present. TN 134. QRS 116. QT 396. QTc 518. Normal axis. Normal QRS. No acute ST change. Disposition Clinical Impression: Abnormal finding on EKG Disposition: HOME SELF-CARE Condition: Stable Instructions: Palpitations (ED) Additional Instructions: Please follow-up with your doctor in the next day or 2 for recheck. Please follow-up with cardiology regarding borderline QTC on EKG. [employer] Supervisor can review EKGs done today. Return for increased heart rate, chest pain or difficulty in breathing, worsening symptoms or other concerns. Referrals: Linda Sanders MD [Primary Care Provider] - 1-2 days Time of Disposition: 12:12
[2017-08-24 12:23] VITALS: BP 138/56; PULSE 96; RESP 18; TEMP 97.1
== END 2017-08-24 12:30 | disposition home or self-care (01) ==
LOC: EC 11:06
DX: R94.31 Abnormal electrocardiogram [ECG] [EKG] (principal); I45.10 Unspecified right bundle-branch block; I25.10 Atherosclerotic heart disease of native coronary artery without angina pectoris; E11.22 Type 2 diabetes mellitus with diabetic chronic kidney disease; E78.5 Hyperlipidemia, unspecified; E07.9 Disorder of thyroid, unspecified; C56.1 Malignant neoplasm of right ovary; F31.9 Bipolar disorder, unspecified; I12.9 Hypertensive chronic kidney disease with stage 1 through stage 4 chronic kidney disease, or unspecified chronic kidney disease; N18.9 Chronic kidney disease, unspecified; Z87.891 Personal history of nicotine dependence; Z79.4 Long term (current) use of insulin; Z79.899 Other long term (current) drug therapy; Z88.0 Allergy status to penicillin; Z88.1 Allergy status to other antibiotic agents; Z88.2 Allergy status to sulfonamides
CPT/HCPCS: 93005; 99284

== ENCOUNTER 2017-10-15 22:06 | Emergency (ER) | payer MEDICARE ==
[2017-10-15 23:28] LABS: Anisocytosis Slight; Basophils % (A) 0 %; Eosinophils # (A) 0.3 k/uL (0-0.7); Eosinophils % (A) 4 %; HCT 34.7 % (34.0-46.0); HGB 10.9 gm/dL (11.4-16.0); Hypochromasia Slight; Lymphocytes # (A) 0.8 k/uL (1.0-4.8); Lymphocytes % (A) 12 %; MCH 27.2 pg (25.0-35.0); MCHC 31.5 g/dL (31.0-37.0); MCV 86.2 fL (80.0-100.0); Mean Platelet Volume 8.4; Microcytosis Slight; Monocytes # (A) 0.2 k/uL (0-1.0); Monocytes % (A) 2 %; Neutrophils # (A) 5.3 k/uL (1.3-7.7); Neutrophils % (A) 79 %; Platelet Count 256 k/uL (150-450); RBC 4.02 m/uL (3.80-5.40); RDW 18.4 % (11.5-15.5); WBC 6.7 k/uL (3.8-10.6)
--- NOTE | 2017-10-15 23:43 | XR ---
EXAMINATION TYPE: XR KUB DATE OF EXAM: 10/15/2017 COMPARISON: NONE HISTORY: Abdominal pain TECHNIQUE: 2 views FINDINGS: There is no sign of intestinal obstruction or pneumoperitoneum. Fecal pattern shows left an d right side retained fecal material. There is neurostimulator in the thoracic spine. I see no sign o f a mass. There are no pathologic calcifications over the kidneys. IMPRESSION: There is evidence of constipation. No free air.
[2017-10-15 23:48] LABS: Albumin 3.7 g/dL (3.5-5.0); Calcium 9.7 mg/dL (8.4-10.2); Potassium 4.6 mmol/L (3.5-5.1); Total Bilirubin 0.5 mg/dL (0.2-1.3); Total Protein 6.6 g/dL (6.3-8.2)
[2017-10-16] MEDS ORDERED: DOCUSATE 283 MG/5 ML ENEMA RECTAL STA (00:12)
--- NOTE | 2017-10-16 00:41 | ED ---
Abdominal Pain HPI - General Chief Complaint: Abdominal Pain Stated Complaint: constipation Time Seen by Provider: 10/15/17 22:38 Source: patient, RN notes reviewed Mode of arrival: ambulatory Limitations: no limitations - History of Present Illness Initial Comments: This is a 72-year-old female who presents to the emergency department with chief complaint of constipation. Patient states that she has not had a normal bowel movement approximately 1 week. She states that she has been only moving a little bits of stool at a time. She does state that she's been taking stool softeners and drinking prune juice daily. She states that she has been having difficulty with constipation since being started on iron infusions in July. She states that she currently undergoes chemotherapy for ovarian cancer. Patient also is concerned that she may have a urinary tract infection. She reports dysuria. Denies fevers or chills, chest pain or shortness of breath, nausea or vomiting, diarrhea, hematuria, headache or dizziness. - Related Data Home Medications Medication Instructions Recorded Confirmed Ascorbic Acid [Vitamin C] 1,000 mg PO DAILY 01/06/16 10/15/17 Baclofen 10 mg PO QID PRN 01/06/16 10/15/17 Calcium Carbonate [Calcium] 1,200 mg PO DAILY 01/06/16 10/15/17 DULoxetine HCL [Cymbalta] 60 mg PO DAILY 01/06/16 10/15/17 Multivitamin [Multivitamins Adult 1 tab PO DAILY 01/06/16 10/15/17 Gummies] Pioglitazone [Actos] 15 mg PO DAILY 01/06/16 10/15/17 Ubidecarenone [Coenzyme Q10] 200 mcg PO DAILY 01/06/16 10/15/17 metFORMIN HCL [metFORMIN HCL ER] 1,000 mg PO DAILY 01/06/16 10/15/17 oxyCODONE HCL 10 mg PO Q6H PRN 01/06/16 10/15/17 Insulin NPH Hum/Reg Insulin Hm 20 unit SQ AC-BRKFST 03/17/16 10/15/17 [NovoLIN 70-30 100 UNIT/ML VIAL] Insulin NPH Hum/Reg Insulin Hm 20 unit SQ AC-SUPPER 03/17/16 10/15/17 [NovoLIN 70-30 100 UNIT/ML VIAL] Atorvastatin [Lipitor] 40 mg PO HS 07/25/17 10/15/17 Hydrochlorothiazide [Hydrodiuril] 25 mg PO DAILY 07/25/17 10/15/17 Levothyroxine Sodium [Synthroid] 100 mcg PO DAILY 07/25/17 10/15/17 amLODIPine [Norvasc] 5 mg PO DAILY 07/25/17 10/15/17 Cholecalciferol (Vitamin D3) 2,000 unit PO DAILY 10/15/17 10/15/17 [Vitamin D3] Previous Rx's Medication Instructions Recorded Lisinopril 40 mg PO HS #0 07/29/17 Metoprolol Tartrate [Lopressor] 12.5 mg PO BID #60 dose 07/29/17 Sulfamethox-Tmp 800-160Mg [Bactrim 1 tab PO Q12HR #20 tab 10/16/17 DS 800-160 mg] Allergies Allergy/AdvReac Type Severity Reaction Status Date / Time amoxicillin Allergy Rash/Hives Verified 10/15/17 22:41 ciprofloxacin [From Cipro] Allergy Dyspnea Verified 10/15/17 22:41 ciprofloxacin HCl Allergy Dyspnea Verified 10/15/17 22:41 [From Cipro] Sulfa (Sulfonamide Allergy Unknown Verified 10/15/17 22:41 Antibiotics) Review of Systems ROS Statement: Those systems with pertinent positive or pertinent negative responses have been documented in the HPI. ROS Other: All systems not noted in ROS Statement are negative. Past Medical History Past Medical History: Asthma, Coronary Artery Disease (CAD), Cancer, Diabetes Mellitus, Hyperlipidemia, Hypertension, Osteoarthritis (OA), Pneumonia, Renal Disease, Thyroid Disorder Additional Past Medical History / Comment(s): R sided ovarian cancer diagnosed about 06/03/17 with exploratory laparotomy with tumor removal and lysis of adhesions-pt has had 1st IV chemo and will get 5 more cycles ([facility] [place]) , current sacral ulcer-receiving wound care at home by home care nurse, IDDM type II, CKD, bronchitis, osteopenia, cardiac murmur, possible CAD, chronic back pain, recent UTI, urine incontinence at times. History of Any Multi-Drug Resistant Organisms: None Reported Past Surgical History: Appendectomy, Cholecystectomy, Hysterectomy, Joint Replacement, Tonsillectomy Additional Past Surgical History / Comment(s): 06/2017 Exploratory laparotomy with tumor removal and lysis of adhesions done at [facility], bilateral total knees, bilateral cataract removals, colonoscopies-last one normal, one prior had multiple benign polypectomies, D&C. Past Anesthesia/Blood Transfusion Reactions: No Reported Reaction Additional Past Anesthesia/Blood Transfusion Reaction / Comment(s): Unsure of family history, patient was adopted. Past Psychological History: Bipolar Smoking Status: Former smoker Past Alcohol Use History: None Reported Past Drug Use History: None Reported - Past Family History Father History Unknown: Yes Additional Family Medical History / Comment(s): Pt is adopted and does not know parents medical history. General Exam - General Exam Comments Initial Comments: General: Awake and alert, well-developed; in no apparent distress. HEENT: Head atraumatic, normocephalic. Pupils are equal, round and reactive to light. Extraocular movements intact. Oropharynx moist without erythema or exudate. Neck: Supple. Normal ROM. Cardiovascular: Regular rate and rhythm. No murmurs, rubs or gallops. Chest symmetrical. Respiratory: Lungs clear to auscultation bilaterally. No wheezes, rales or rhonchi. Normal respiratory effort with no use of accessory muscles. Abdomen: Soft, non-distended. Mild generalized tenderness on palpation. No rigidity, rebound or guarding. Normal bowel sounds in all 4 quadrants. Musculoskeletal: Normal ROM, no tenderness bilateral upper and lower extremities. Skin: [place], warm and dry without rashes or lesions. Neurological: Alert and oriented x3. CN II-XII grossly intact. Speech is fluent and answers are appropriate. No focal neuro deficits. Psychiatric: Normal mood and affect. No overt signs of depression or anxiety noted. Limitations: no limitations Course Vital Signs 10/15/17 22:10 Temperature 99.3 F Pulse Rate 65 Respiratory 20 Rate Blood Pressure 115/54 O2 Sat by Pulse 96 Oximetry Procedures - Rectal Disimpaction Consent Obtained: verbal consent Indication: fecal impaction Procedural Sedation: No Sedation/Analgesia: none Technique: manual disimpaction with gloved finger Result: significant stool output Complications: none Patient Tolerated Procedure: well, no complications Medical Decision Making - Medical Decision Making This is a 72-year-old female who presented to the emergency department with chief complaint of constipation 1 week. KUB revealed evidence for constipation. Patient was noted to have a large rectal impaction and was manually disimpacted. A Therevac enema was then used and the patient had a normal, successful bowel movement. Patient also complained of dysuria and requested to be checked for a urinary tract infection. UA revealed evidence for leukocyte esterase, bacteria and white blood cells. Patient will be treated with Bactrim for a urinary tract infection. Sulfa is listed as an ALLERGY, however patient states that this is a mistake. She states that she can safely take Bactrim. Recommended that patient take stool softeners consistently daily. Recommended following up with her primary care provider. Vital signs are stable and patient is in no acute distress. CBC was unremarkable. CMP revealed elevated BUN and creatinine, however this is baseline for patient. Patient will be discharged home at this time. She is in agreement voices understanding. All questions were answered. - Lab Data Result diagrams: 10/15/17 23:20 10/15/17 23:20 Lab Results 10/15/17 10/15/17 10/16/17 Range/Units 23:20 23:20 02:43 WBC 6.7 (3.8-10.6) k/uL RBC 4.02 (3.80-5.40) m/uL Hgb 10.9 L (11.4-16.0) gm/dL Hct 34.7 (34.0-46.0) % MCV 86.2 (80.0-100.0) fL MCH 27.2 (25.0-35.0) pg MCHC 31.5 (31.0-37.0) g/dL RDW 18.4 H (11.5-15.5) % Plt Count 256 (150-450) k/uL Neutrophils % 79 % Lymphocytes % 12 % Monocytes % 2 % Eosinophils % 4 % Basophils % 0 % Neutrophils # 5.3 (1.3-7.7) k/uL Lymphocytes # 0.8 L (1.0-4.8) k/uL Monocytes # 0.2 (0-1.0) k/uL Eosinophils # 0.3 (0-0.7) k/uL Basophils # 0.0 (0-0.2) k/uL Hypochromasia Slight Anisocytosis Slight Microcytosis Slight Sodium 134 L (137-145) mmol/L Potassium 4.6 (3.5-5.1) mmol/L Chloride 96 L (98-107) mmol/L Carbon Dioxide 22 (22-30) mmol/L Anion Gap 16 mmol/L BUN 32 H (7-17) mg/dL Creatinine 1.10 H (0.52-1.04) mg/dL Est GFR (CKD-EPI)AfAm 58 (>60 ml/min/1.73 sqM) Est GFR (CKD-EPI)NonAf 50 (>60 ml/min/1.73 sqM) Glucose 250 H (74-99) mg/dL Calcium 9.7 (8.4-10.2) mg/dL Total Bilirubin 0.5 (0.2-1.3) mg/dL AST 16 (14-36) U/L ALT 17 (9-52) U/L Alkaline Phosphatase 122 (38-126) U/L Total Protein 6.6 (6.3-8.2) g/dL Albumin 3.7 (3.5-5.0) g/dL Amylase 47 (30-110) U/L Lipase 90 (23-300) U/L Urine Color Yellow Urine Appearance Cloudy H (Clear) Urine pH 5.0 (5.0-8.0) Ur Specific [place] 1.019 (1.001-1.035) Urine Protein Trace H (Negative) Urine Glucose (UA) Negative (Negative) Urine Ketones Negative (Negative) Urine Blood Negative (Negative) Urine Nitrite Negative (Negative) Urine Bilirubin Negative (Negative) Urine Urobilinogen 2.0 (<2.0) mg/dL Ur Leukocyte Esterase Large H (Negative) Urine RBC 1 (0-5) /hpf Urine WBC 8 H (0-5) /hpf Ur Squamous Epith Cells 2 (0-4) /hpf Urine Bacteria Occasional H (None) /hpf Hyaline Casts 46 H (0-2) /lpf Urine Mucus Rare H (None) /hpf - Radiology Data Radiology results: report reviewed X-ray KUB impression: There is evidence of constipation. No free air. Disposition Clinical Impression: Constipation, Urinary tract infection Disposition: HOME SELF-CARE Condition: Good Instructions: Urinary Traction Infection in Older Adults (ED), Constipation (ED ) Additional Instructions: Please take stool softeners daily. Please follow up with primary care provider within 1-2 days. Return to emergency department if symptoms should worsen or any concerns arise. Prescriptions: Sulfamethox-Tmp 800-160Mg [Bactrim DS 800-160 mg] 1 tab PO Q12HR #20 tab Is patient prescribed a controlled substance at discharge?: No Referrals: Linda Sanders MD [Primary Care Provider] - 1-2 days Time of Disposition: 03:13
[2017-10-16 02:59] LABS: Appearance,Urine Cloudy (Clear); Bacteria,Urine Occasional /hpf; Bilirubin,Urine Negative (Negative); Blood,Urine Negative (Negative); Color,Urine Yellow; Glucose,Urine (UA) Negative (Negative); Hyaline Casts,Urine 46 /lpf (0-2); Ketones,Urine Negative (Negative); Leukocyte Esterase,Urine Large (Negative); Mucus,Urine Rare /hpf; Nitrite,Urine Negative (Negative); Protein,Urine Trace (Negative); RBC,Urine 1 /hpf (0-5); Specific Gravity,Urine 1.019 (1.001-1.035); Squamous Epithelial Cell,Urine 2 /hpf (0-4); WBC,Urine 8 /hpf (0-5)
[2017-10-16 03:24] VITALS: BP 122/57; PULSE 82; RESP 16; TEMP 97.4
== END 2017-10-16 03:24 | disposition home or self-care (01) ==
LOC: EC 22:06
DX: K59.00 Constipation, unspecified (principal); N39.0 Urinary tract infection, site not specified; I25.10 Atherosclerotic heart disease of native coronary artery without angina pectoris; E78.5 Hyperlipidemia, unspecified; I12.9 Hypertensive chronic kidney disease with stage 1 through stage 4 chronic kidney disease, or unspecified chronic kidney disease; N18.9 Chronic kidney disease, unspecified; E11.22 Type 2 diabetes mellitus with diabetic chronic kidney disease; E07.9 Disorder of thyroid, unspecified; Z85.43 Personal history of malignant neoplasm of ovary; Z87.891 Personal history of nicotine dependence; Z90.49 Acquired absence of other specified parts of digestive tract; Z79.4 Long term (current) use of insulin; Z79.899 Other long term (current) drug therapy; Z88.0 Allergy status to penicillin; Z88.1 Allergy status to other antibiotic agents
CPT/HCPCS: 36415; 74018; 80053; 81001; 82150; 83690; 85025; 99284

== ENCOUNTER 2017-11-04 16:12 | Emergency (ER) | payer MEDICARE ==
[2017-11-04 16:25] VITALS: RESP 20; TEMP 97.5
[2017-11-04] MEDS ORDERED: SODIUM CHLORIDE 0.9% 1,000 ML IV ONE (16:32)
--- NOTE | 2017-11-04 16:36 | ED ---
General Adult HPI - General Chief complaint: Recheck/Abnormal Lab/Rx Stated complaint: CONSTIPATION Time Seen by Provider: 11/04/17 16:21 Source: patient Mode of arrival: wheelchair Limitations: no limitations - History of Present Illness Initial comments: Patient is a 72-year-old female with a history of ovarian cancer, currently on chemotherapy, presents with chief complaint of constipation. The patient states she last had a bowel movement 4 days ago. The patient states that currently she is having discomfort at her rectum and states that there is stool in her vault. Patient denies any other pains. She cannot identify any inciting incidences other than the chemo and states that this happened to her before with chemotherapy. There are no aggravating or alleviating factors. - Related Data Home Medications Medication Instructions Recorded Confirmed Ascorbic Acid [Vitamin C] 1,000 mg PO DAILY 01/06/16 10/15/17 Baclofen 10 mg PO QID PRN 01/06/16 10/15/17 Calcium Carbonate [Calcium] 1,200 mg PO DAILY 01/06/16 10/15/17 DULoxetine HCL [Cymbalta] 60 mg PO DAILY 01/06/16 10/15/17 Multivitamin [Multivitamins Adult 1 tab PO DAILY 01/06/16 10/15/17 Gummies] Pioglitazone [Actos] 15 mg PO DAILY 01/06/16 10/15/17 Ubidecarenone [Coenzyme Q10] 200 mcg PO DAILY 01/06/16 10/15/17 metFORMIN HCL [metFORMIN HCL ER] 1,000 mg PO DAILY 01/06/16 10/15/17 oxyCODONE HCL 10 mg PO Q6H PRN 01/06/16 10/15/17 Insulin NPH Hum/Reg Insulin Hm 20 unit SQ AC-BRKFST 03/17/16 10/15/17 [NovoLIN 70-30 100 UNIT/ML VIAL] Insulin NPH Hum/Reg Insulin Hm 20 unit SQ AC-SUPPER 03/17/16 10/15/17 [NovoLIN 70-30 100 UNIT/ML VIAL] Atorvastatin [Lipitor] 40 mg PO HS 07/25/17 10/15/17 Hydrochlorothiazide [Hydrodiuril] 25 mg PO DAILY 07/25/17 10/15/17 Levothyroxine Sodium [Synthroid] 100 mcg PO DAILY 07/25/17 10/15/17 amLODIPine [Norvasc] 5 mg PO DAILY 07/25/17 10/15/17 Cholecalciferol (Vitamin D3) 2,000 unit PO DAILY 10/15/17 10/15/17 [Vitamin D3] Previous Rx's Medication Instructions Recorded Lisinopril 40 mg PO HS #0 07/29/17 Metoprolol Tartrate [Lopressor] 12.5 mg PO BID #60 dose 07/29/17 Sulfamethox-Tmp 800-160Mg [Bactrim 1 tab PO Q12HR #20 tab 10/16/17 DS 800-160 mg] Magnesium Citrate [Citrate of 592 ml PO ONCE #592 ml 11/04/17 Magnesia] Allergies Allergy/AdvReac Type Severity Reaction Status Date / Time amoxicillin Allergy Rash/Hives Verified 11/04/17 16:17 ciprofloxacin [From Cipro] Allergy Dyspnea Verified 11/04/17 16:17 ciprofloxacin HCl Allergy Dyspnea Verified 11/04/17 16:17 [From Cipro] Review of Systems ROS Statement: Those systems with pertinent positive or pertinent negative responses have been documented in the HPI. ROS Other: All systems not noted in ROS Statement are negative. Gastrointestinal: Reports: constipation Past Medical History Past Medical History: Asthma, Coronary Artery Disease (CAD), Cancer, Diabetes Mellitus, Hyperlipidemia, Hypertension, Osteoarthritis (OA), Pneumonia, Renal Disease, Thyroid Disorder Additional Past Medical History / Comment(s): R sided ovarian cancer diagnosed about 06/03/17 with exploratory laparotomy with tumor removal and lysis of adhesions-pt has had 1st IV chemo and will get 5 more cycles ([facility]) , current sacral ulcer-receiving wound care at home by home care nurse, IDDM type II, CKD, bronchitis, osteopenia, cardiac murmur, possible CAD, chronic back pain, recent UTI, urine incontinence at times. History of Any Multi-Drug Resistant Organisms: None Reported Past Surgical History: Appendectomy, Cholecystectomy, Hysterectomy, Joint Replacement, Tonsillectomy Additional Past Surgical History / Comment(s): 06/2017 Exploratory laparotomy with tumor removal and lysis of adhesions done at [facility], bilateral total knees, bilateral cataract removals, colonoscopies-last one normal, one prior had multiple benign polypectomies, D&C. Past Anesthesia/Blood Transfusion Reactions: No Reported Reaction Additional Past Anesthesia/Blood Transfusion Reaction / Comment(s): Unsure of family history, patient was adopted. Past Psychological History: Bipolar Smoking Status: Former smoker Past Alcohol Use History: None Reported Past Drug Use History: None Reported - Past Family History Father History Unknown: Yes Additional Family Medical History / Comment(s): Pt is adopted and does not know parents medical history. General Exam Limitations: no limitations General appearance: alert, in no apparent distress Head exam: Present: atraumatic (patient has a small abrasion to the top of her head from a fall several days ago. ), normocephalic Eye exam: Present: normal appearance, PERRL, EOMI Pupils: Present: normal accommodation. Absent: irregular, unequal ENT exam: Present: mucous membranes moist Neck exam: Present: normal inspection. Absent: tenderness Respiratory exam: Present: normal lung sounds bilaterally. Absent: respiratory distress, wheezes Cardiovascular Exam: Present: regular rate, normal rhythm GI/Abdominal exam: Present: soft. Absent: distended, tenderness, guarding Extremities exam: Present: normal inspection Back exam: Present: normal inspection Neurological exam: Present: alert, oriented X3 Psychiatric exam: Present: normal affect, normal mood Skin exam: Present: warm, dry, intact Course Vital Signs 11/04/17 16:13 Temperature 97.5 F L Pulse Rate 102 H Respiratory 20 Rate Blood Pressure 147/63 O2 Sat by Pulse 100 Oximetry Medical Decision Making - Medical Decision Making Patient is a 72-year-old female currently undergoing chemotherapy for ovarian cancer presents with a chief complaint of constipation. On initial examination , vital signs are stable, patient is in no acute distress. Patient admits to having a fall a few days ago or she landed on her knees. Patient states she also has a small abrasion on her head but does not remember hitting her head. She did not lose consciousness at that time. She is unable to ambulate since. At this time, I do not believe that neuroimaging is warranted patient does not take any blood thinners, her neuro exam is nonfocal, and patient denies any other symptoms such as headache or neck pain. Patient to be evaluated basic labs, she will receive a liter of fluid, digital disimpaction will be performed. 6:30 PM On evaluation of the fingers unremarkable. Creatinine is 1.3, when compared to previous lab results, this is baseline. Patient states her pain is improved if she is not a bowel movement in the emergency department. I discussed the use of magnesium citrate and advised close follow-up with primary care 1-2 days. Patient is agreeable with his current care plan. He was instructed to return to the emergency department if her symptoms worsen or change. - Lab Data Result diagrams: 11/04/17 16:51 11/04/17 16:51 Lab Results 11/04/17 11/04/17 Range/Units 16:51 16:51 WBC 6.0 (3.8-10.6) k/uL RBC 3.73 L (3.80-5.40) m/uL Hgb 10.5 L (11.4-16.0) gm/dL Hct 32.7 L (34.0-46.0) % MCV 87.6 (80.0-100.0) fL MCH 28.2 (25.0-35.0) pg MCHC 32.2 (31.0-37.0) g/dL RDW 16.8 H (11.5-15.5) % Plt Count 306 (150-450) k/uL Neutrophils % 86 % Lymphocytes % 11 % Monocytes % 2 % Eosinophils % 1 % Basophils % 0 % Neutrophils # 5.1 (1.3-7.7) k/uL Lymphocytes # 0.7 L (1.0-4.8) k/uL Monocytes # 0.1 (0-1.0) k/uL Eosinophils # 0.1 (0-0.7) k/uL Basophils # 0.0 (0-0.2) k/uL Anisocytosis Slight Sodium 139 (137-145) mmol/L Potassium 4.8 (3.5-5.1) mmol/L Chloride 99 (98-107) mmol/L Carbon Dioxide 24 (22-30) mmol/L Anion Gap 16 mmol/L BUN 52 H (7-17) mg/dL Creatinine 1.30 H (0.52-1.04) mg/dL Est GFR (CKD-EPI)AfAm 47 (>60 ml/min/1.73 sqM) Est GFR (CKD-EPI)NonAf 41 (>60 ml/min/1.73 sqM) Glucose 173 H (74-99) mg/dL Calcium 9.3 (8.4-10.2) mg/dL Disposition Clinical Impression: Constipation Disposition: HOME SELF-CARE Condition: Good Instructions: Constipation (ED) Prescriptions: Magnesium Citrate [Citrate of Magnesia] 592 ml PO ONCE #592 ml Is patient prescribed a controlled substance at d/c from ED?: No Referrals: Linda Sanders MD [Primary Care Provider] - 1-2 days
[2017-11-04 17:00] LABS: Anisocytosis Slight; Basophils % (A) 0 %; Eosinophils # (A) 0.1 k/uL (0-0.7); Eosinophils % (A) 1 %; HCT 32.7 % (34.0-46.0); HGB 10.5 gm/dL (11.4-16.0); Lymphocytes # (A) 0.7 k/uL (1.0-4.8); Lymphocytes % (A) 11 %; MCH 28.2 pg (25.0-35.0); MCHC 32.2 g/dL (31.0-37.0); MCV 87.6 fL (80.0-100.0); Mean Platelet Volume 8.2; Monocytes # (A) 0.1 k/uL (0-1.0); Monocytes % (A) 2 %; Neutrophils # (A) 5.1 k/uL (1.3-7.7); Neutrophils % (A) 86 %; Platelet Count 306 k/uL (150-450); RBC 3.73 m/uL (3.80-5.40); RDW 16.8 % (11.5-15.5)
[2017-11-04 17:13] LABS: Calcium 9.3 mg/dL (8.4-10.2); Potassium 4.8 mmol/L (3.5-5.1)
[2017-11-04 18:44] VITALS: BP 142/58; PULSE 78
== END 2017-11-04 18:46 | disposition home or self-care (01) ==
LOC: EC 16:12
DX: K59.00 Constipation, unspecified (principal); S00.91XA Abrasion of unspecified part of head, initial encounter; L89.159 Pressure ulcer of sacral region, unspecified stage; E78.5 Hyperlipidemia, unspecified; I12.9 Hypertensive chronic kidney disease with stage 1 through stage 4 chronic kidney disease, or unspecified chronic kidney disease; N18.9 Chronic kidney disease, unspecified; E11.22 Type 2 diabetes mellitus with diabetic chronic kidney disease; I25.10 Atherosclerotic heart disease of native coronary artery without angina pectoris; E07.9 Disorder of thyroid, unspecified; F31.9 Bipolar disorder, unspecified; Z87.891 Personal history of nicotine dependence; Z79.4 Long term (current) use of insulin; Z79.899 Other long term (current) drug therapy; Z88.0 Allergy status to penicillin; Z88.1 Allergy status to other antibiotic agents; Z90.49 Acquired absence of other specified parts of digestive tract; Z90.710 Acquired absence of both cervix and uterus; Z98.890 Other specified postprocedural states; Z85.43 Personal history of malignant neoplasm of ovary; Z92.21 Personal history of antineoplastic chemotherapy; W19.XXXA Unspecified fall, initial encounter
CPT/HCPCS: 36415; 80048; 85025; 96360; 99283

== ENCOUNTER 2017-11-26 21:30 | Emergency (ER) | payer MEDICARE ==
--- NOTE | 2017-11-26 22:14 | ED ---
General Adult HPI - General Chief complaint: Abdominal Pain Stated complaint: constipation Time Seen by Provider: 11/26/17 22:12 Source: patient Mode of arrival: ambulatory Limitations: no limitations - History of Present Illness Initial comments: Shital is a 72-year-old female with a past medical history significant for stage I ovarian cancer identified last year, patient is currently undergoing chemotherapy. Patient states that she had her last chemotherapy on November 20, she states that since that time she has not had a bowel movement. Patient states that with each of her chemotherapy she has developed significant constipation and had to come to the emergency department for rectal disimpaction. Patient states that since her chemotherapy she's been taking stool softeners and laxatives daily, she states that earlier today she was able to pass a very small amount of very firm stool but feels as though there is a large ball of stool in her rectum so she came to the ER for disimpaction. She reports that she is otherwise in her usual state of health. She reports feeling somewhat fatigued from the chemo, however she's been eating and drinking well and attending to her activities of daily living. As no other complaints. She states that the chemotherapy she had last week is her very last chemotherapy and she will have surveillance CT in in the near future and follow-up with her oncologist. - Related Data Home Medications Medication Instructions Recorded Confirmed Ascorbic Acid [Vitamin C] 1,000 mg PO DAILY 01/06/16 10/15/17 Baclofen 10 mg PO QID PRN 01/06/16 10/15/17 Calcium Carbonate [Calcium] 1,200 mg PO DAILY 01/06/16 10/15/17 DULoxetine HCL [Cymbalta] 60 mg PO DAILY 01/06/16 10/15/17 Multivitamin [Multivitamins Adult 1 tab PO DAILY 01/06/16 10/15/17 Gummies] Pioglitazone [Actos] 15 mg PO DAILY 01/06/16 10/15/17 Ubidecarenone [Coenzyme Q10] 200 mcg PO DAILY 01/06/16 10/15/17 metFORMIN HCL [metFORMIN HCL ER] 1,000 mg PO DAILY 01/06/16 10/15/17 oxyCODONE HCL 10 mg PO Q6H PRN 01/06/16 10/15/17 Insulin NPH Hum/Reg Insulin Hm 20 unit SQ AC-BRKFST 03/17/16 10/15/17 [NovoLIN 70-30 100 UNIT/ML VIAL] Insulin NPH Hum/Reg Insulin Hm 20 unit SQ AC-SUPPER 03/17/16 10/15/17 [NovoLIN 70-30 100 UNIT/ML VIAL] Atorvastatin [Lipitor] 40 mg PO HS 07/25/17 10/15/17 Hydrochlorothiazide [Hydrodiuril] 25 mg PO DAILY 07/25/17 10/15/17 Levothyroxine Sodium [Synthroid] 100 mcg PO DAILY 07/25/17 10/15/17 amLODIPine [Norvasc] 5 mg PO DAILY 07/25/17 10/15/17 Cholecalciferol (Vitamin D3) 2,000 unit PO DAILY 10/15/17 10/15/17 [Vitamin D3] Previous Rx's Medication Instructions Recorded Lisinopril 40 mg PO HS #0 07/29/17 Metoprolol Tartrate [Lopressor] 12.5 mg PO BID #60 dose 07/29/17 Sulfamethox-Tmp 800-160Mg [Bactrim 1 tab PO Q12HR #20 tab 10/16/17 DS 800-160 mg] Magnesium Citrate [Citrate of 592 ml PO ONCE #592 ml 11/04/17 Magnesia] Allergies Allergy/AdvReac Type Severity Reaction Status Date / Time amoxicillin Allergy Rash/Hives Verified 11/04/17 16:17 ciprofloxacin [From Cipro] Allergy Dyspnea Verified 11/04/17 16:17 ciprofloxacin HCl Allergy Dyspnea Verified 11/04/17 16:17 [From Cipro] Review of Systems ROS Statement: Those systems with pertinent positive or pertinent negative responses have been documented in the HPI. ROS Other: All systems not noted in ROS Statement are negative. Past Medical History Past Medical History: Asthma, Coronary Artery Disease (CAD), Cancer, Diabetes Mellitus, Hyperlipidemia, Hypertension, Osteoarthritis (OA), Pneumonia, Renal Disease, Thyroid Disorder Additional Past Medical History / Comment(s): R sided ovarian cancer diagnosed about 06/03/17 with exploratory laparotomy with tumor removal and lysis of adhesions-pt has had 1st IV chemo and will get 5 more cycles ([facility]) , current sacral ulcer-receiving wound care at home by home care nurse, IDDM type II, CKD, bronchitis, osteopenia, cardiac murmur, possible CAD, chronic back pain, recent UTI, urine incontinence at times. History of Any Multi-Drug Resistant Organisms: None Reported Past Surgical History: Appendectomy, Cholecystectomy, Hysterectomy, Joint Replacement, Tonsillectomy Additional Past Surgical History / Comment(s): 06/2017 Exploratory laparotomy with tumor removal and lysis of adhesions done at [facility], bilateral total knees, bilateral cataract removals, colonoscopies-last one normal, one prior had multiple benign polypectomies, D&C. Past Anesthesia/Blood Transfusion Reactions: No Reported Reaction Additional Past Anesthesia/Blood Transfusion Reaction / Comment(s): Unsure of family history, patient was adopted. Past Psychological History: Bipolar Smoking Status: Former smoker Past Alcohol Use History: None Reported Past Drug Use History: None Reported - Past Family History Father History Unknown: Yes Additional Family Medical History / Comment(s): Pt is adopted and does not know parents medical history. General Exam Limitations: no limitations General appearance: alert, in no apparent distress, other (bald, pale, chemotherapy patient ) Head exam: Present: atraumatic, normocephalic Eye exam: Present: normal appearance, PERRL ENT exam: Present: normal exam Neck exam: Present: normal inspection Respiratory exam: Present: normal lung sounds bilaterally. Absent: respiratory distress Cardiovascular Exam: Present: regular rate GI/Abdominal exam: Present: soft, normal bowel sounds. Absent: tenderness, guarding, rebound Rectal exam: Present: normal inspection, normal rectal tone, fecal impaction. Absent: mass Extremities exam: Present: normal inspection Neurological exam: Present: alert, oriented X3 Psychiatric exam: Present: normal affect, normal mood Skin exam: Present: warm, dry, pallor Course Vital Signs 11/26/17 11/26/17 11/26/17 21:37 23:06 23:39 Temperature 97.3 F L 97.8 F Pulse Rate 84 85 83 Respiratory 16 18 18 Rate Blood Pressure 103/47 112/53 135/59 O2 Sat by Pulse 100 99 Oximetry Medical Decision Making - Medical Decision Making The patient was seen and evaluated, history was obtained from the patient and review of previous medical record. Patient reports constipation after each of her abscess episodes of chemotherapy. Patient has history of rectal fecal impaction requiring digital disimpaction. Physical exam reveals a normal rectum with a large firm stool ball in the rectum. Digital disimpaction was performed, with significant amount of stool removed. That time patient did still feel as though she had the urge to have a bowel movement and a soapsuds enema was ordered. Patient tolerated soapsuds enema, she subsequent they have very large bowel movement and reported significant improvement in her sensation of constipation. At this time the patient reports she is feeling much better and wanted to be discharged home. She was discharged home with the plan for follow-up with her oncologist or primary care physician as scheduled or return to the ER if she develops any new or worsening symptoms. Disposition Clinical Impression: Fecal impaction in rectum Disposition: HOME SELF-CARE Condition: Good Instructions: Constipation (ED) Is patient prescribed a controlled substance at d/c from ED?: No Referrals: Linda Sanders MD [Primary Care Provider] - 1-2 days Time of Disposition: 23:43
[2017-11-26 23:06] VITALS: RESP 18
[2017-11-26 23:41] VITALS: BP 135/59; PULSE 83; TEMP 97.8
== END 2017-11-27 | disposition home or self-care (01) ==
LOC: EC 21:30
DX: K56.41 Fecal impaction (principal); I25.10 Atherosclerotic heart disease of native coronary artery without angina pectoris; E11.22 Type 2 diabetes mellitus with diabetic chronic kidney disease; I12.9 Hypertensive chronic kidney disease with stage 1 through stage 4 chronic kidney disease, or unspecified chronic kidney disease; N18.9 Chronic kidney disease, unspecified; E78.5 Hyperlipidemia, unspecified; E07.9 Disorder of thyroid, unspecified; F31.9 Bipolar disorder, unspecified; Z92.21 Personal history of antineoplastic chemotherapy; Z85.43 Personal history of malignant neoplasm of ovary; Z90.49 Acquired absence of other specified parts of digestive tract; Z87.891 Personal history of nicotine dependence; Z79.4 Long term (current) use of insulin; Z79.899 Other long term (current) drug therapy; Z88.0 Allergy status to penicillin; Z88.1 Allergy status to other antibiotic agents
CPT/HCPCS: 99284

== ENCOUNTER → 2017-12-14 | Outpatient (CLI) | payer MEDICARE ==
--- NOTE | 2017-12-17 09:11 | CT ---
EXAMINATION TYPE: CT ChestAbdPelvis w con DATE OF EXAM: 12/14/2017 INDICATION: Ovarian CA COMPARISON: NONE CT DLP: 2494.3 mGycm CONTRAST: Performed with Oral Contrast and with IV Contrast, patient injected with 80 mL of Isovue 300. TECHNIQUE: Axial images at 5 mm thick sections. Reconstructed images in the coronal plane. Delayed images through the kidneys. FINDINGS: CT CHEST: Portion of the thyroid visualized is normal. No suspicious lung nodules or focal infiltrates are present. Some minimal subsegmental atelectasis ma y be within the posterior medial right midlung. No enlarged mediastinal or hilar adenopathy is evident. The ascending aorta diameter at the level of the main pulmonary artery is 3.2 cm. The main pulmonary artery diameter at the bifurcation is 3.1 cm. Moderate coronary artery calcifications present. CT ABDOMEN: No free fluid is identified within the abdomen or pelvis. No obvious peritoneal studding is evident. No mesenteric caking is evident. Liver: Normal Spleen: Normal Pancreas: Normal Adrenal glands: Left adrenal gland is mildly thickened at 1.0 cm. There is a heterogenous hypodense mass at the right adrenal region measuring approximately 4.5 x 3.4 cm in size. Some scattered calcifi cations are within this adrenal gland. Given the calcifications and some solid appearance to the stru cture adrenal myelolipoma while considered most likely, but does not exclude metastatic lesion. Consi larry PET CT for additional evaluation. Gallbladder: Surgically absent Kidneys: Left kidney is unremarkable without masses cysts or hydronephrosis. No obvious renal stones are evident. The right kidney appears normal without masses cysts or hydronephrosis. Aorta: Vascular calcification is within the aorta. Inferior vena cava: Normal. CT PELVIS: There is an anterior pelvic wall broad hernia with some loops of small bowel contrast pres ent. No obstruction is evident. Loops of bowel within the abdomen and pelvis are normal. There are loops of bowel which are incom pletely distended or lack oral contrast limiting their evaluation. A few diverticular changes are wit hin the sigmoid colon. Appendix: Not visualized. There is some surgical suture near the cecum which may be appendectomy surg lizette. Suspicious inflammatory changes are not identified. Urinary bladder: Normal. Genitourinary structures: Uterus and ovaries are not identified. Osseous structures: No suspicious lytic or sclerotic lesions. Facet degenerative changes are within t he lumbar spine. IMPRESSIONS: 1. No suspicious changes for metastatic ovarian carcinoma. 2. Complex slightly hypodense mass right adrenal gland. 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 However, given the long axis of the adrenal gland greater than 4 cm the possibility of metastatic lesion could be considered. PET/CT could be performed.
== END ==
LOC: RADCTMAIN 12:25
PROVIDERS: ATTEND Internal Medicine Hematology & Oncology
DX: C56.1 Malignant neoplasm of right ovary (principal); E27.8 Other specified disorders of adrenal gland
CPT/HCPCS: 82565; 84520; 71260; 74177; 36415; Q9967

== ENCOUNTER 2018-02-21 07:36 | Day surgery (SDC) | payer MEDICARE ==
[2018-02-19 13:53] VITALS: BMI 42.1
[~2018-02-21 07:36] MED LIST: LACTATED RINGERS 1,000 ML IV SCH
[2018-02-21 08:03] VITALS: TEMP 97.7
[2018-02-21 08:04] LABS: Glucose,Whole Blood 167 mg/dL (75-99)
[2018-02-21] MEDS ORDERED: LIDOCAINE 1% INJ 10MG/ML (20 ML MDV) ONE (08:42)
[2018-02-21] MEDS ORDERED: PROPOFOL 10 MG/ML 20 ML VIAL IV ONE (08:42)
[2018-02-21 10:16] VITALS: BP 141/52; PULSE 62; RESP 18
--- NOTE | 2018-02-21 12:09 | P.PCN ---
Date of Procedure: 02/21/18 Procedure(s) Performed: Procedure: Incomplete colonoscopy. Preoperative diagnosis: History of polyps. Postoperative diagnoses: Sigmoid diverticulosis with inability to advance the endoscope safely proximally despite various maneuvers and using 2 different endoscopes. Preparation: HalfLytely prep. Sedation: Was provided by anesthesia. Brief clinical history: The patient is a 72-year-old female who is scheduled for this evaluation for screening for neoplasia because of history of polyps. Apparently, while living in [place], she had a colonoscopy within the last 3- 5 years and was found to have a sigmoid polyp that required open surgery for removal. She is not certain if they were able to complete a colonoscopy the following year or not but she indicated that she had adhesions and they had difficulty removing her polyp endoscopically. At this time, she has no abdominal complaints, bleeding or anemia. Procedure: With the patient on her left lateral decubitus position and after informed consent and adequate sedation, the perianal area was inspected and it did not show any fissures or fistulas. There were no masses felt on digital rectal examination. The Olympus CFH 190 and video colonoscope was then inserted in the rectum in the usual fashion and advanced in the sigmoid. There was multiple diverticular orifices noted but I saw no evidence of acute diverticulitis or any definite strictures. I was not able to advance the endoscope safely despite various maneuvers. I, therefore, withdrew the endoscope and exchanged it for the pediatric PCFH 190L which I was not able to pass safely once in that same area of the sigmoid. In the areas examined, the mucosa appeared healthy. There was no evidence of acute diverticulitis or any obvious strictures or any polyps or tumors. I retroflexed the endoscope in the rectum before the endoscope was withdrawn. The patient tolerated the procedure well. Plan: The patient was reassured. Consideration will be given for CT colonography for future surveillance because of her history of polyps. She will be discussing that with you. I will see her in the office in the next month in 2 and make arrangements based on her preference.
== END 2018-02-21 10:54 | disposition home or self-care (01) ==
LOC: ORWHC2ENDO 07:36
DX: Z12.11 Encounter for screening for malignant neoplasm of colon (principal); K57.30 Diverticulosis of large intestine without perforation or abscess without bleeding; Z86.010 Personal history of colon polyps; Z53.09 Procedure and treatment not carried out because of other contraindication; I25.10 Atherosclerotic heart disease of native coronary artery without angina pectoris; I10 Essential (primary) hypertension; J45.909 Unspecified asthma, uncomplicated; E11.9 Type 2 diabetes mellitus without complications; E78.5 Hyperlipidemia, unspecified; E07.9 Disorder of thyroid, unspecified; M19.90 Unspecified osteoarthritis, unspecified site; Z79.890 Hormone replacement therapy; Z79.4 Long term (current) use of insulin; Z79.891 Long term (current) use of opiate analgesic; Z79.899 Other long term (current) drug therapy; Z88.1 Allergy status to other antibiotic agents; Z91.09 Other allergy status, other than to drugs and biological substances
CPT/HCPCS: J2001; J2704; G0105; 45378

== ENCOUNTER → 2018-03-22 | Outpatient (CLI) | payer MEDICARE ==
--- NOTE | 2018-03-22 14:53 | CT ---
EXAMINATION TYPE: CT ChestAbdPelvis w con DATE OF EXAM: 03/22/2018 COMPARISON: CT chest abdomen pelvis December 14, 2017. HISTORY: Follow up ovarian CA. Completed chemotherapy October 2017. CT DLP: 1573 mGycm. Automated Exposure Control for Dose Reduction was Utilized. CONTRAST: CT scan of the thorax, abdomen and pelvis is performed with oral and with IV Contrast, patient inject ed with 80 mL of Isovue 300. FINDINGS: LUNGS: Some dependent atelectasis is present bilaterally. No suspicious new parenchymal nodule or mas s is present. No pleural effusion or pneumothorax is seen bilaterally. MEDIASTINUM: There are no greater than 1 cm hilar or mediastinal lymph nodes. No pericardial effusi on is seen. Main pulmonary artery is dilated at 3.5 cm at bifurcation axial image 23, CT findings co nsistent with underlying pulmonary artery hypertension. Dense calcifications at level of mitral annul us are present. There is mild to moderate calcified plaque of the thoracic aorta. Right thyroid gland is asymmetrically small in size or atrophic. Coronary artery calcification is again seen which is no eulogio marker for coronary artery disease. Cardiomegaly is redemonstrated. OTHER: Stimulator device in the thoracic spinal canal is redemonstrated. LIVER/GB: Cholecystectomy clips are redemonstrated. PANCREAS: No significant abnormality is seen. SPLEEN: No significant abnormality is seen. ADRENALS: There is stable 4.2 x 3.1 cm right adrenal mass containing calcifications, soft tissue dens ity, and fat consistent with myolipoma. Size may be large enough to warrant excision to prevent spont aneous hemorrhage. KIDNEYS: Bladder is poorly distended and thus suboptimally evaluated BOWEL: Oral contrast reaches level of hepatic flexure. There is no suspicious small or large bowel di latation. There is mild to moderate fecal prominence throughout the colon most prominent in the trans verse colon. GENITAL ORGANS: Uterus is surgically absent LYMPH NODES: No greater than 1cm abdominal or pelvic lymph nodes are appreciated. OSSEOUS STRUCTURES: There is stable slight grade 1 anterolisthesis of L4 on L5. There is persistent m oderate to advanced compression fracture at T12 level. Osseous structures are demineralized. Exaggera eulogio kyphosis in the upper thoracic spine is redemonstrated. There is prominent facet arthropathy in t he mid to lower lumbar spine redemonstrated. Moderate joint space loss in both hips is again seen. OTHER: There is overlying vertical scar in the anterior pelvis from hysterectomy. Stable eventration of bowel in the pelvis without focal defect to suggest hernia. IMPRESSION: No new suspicious mass or adenopathy is seen to suggest neoplastic recurrence.
== END ==
LOC: RADCTMAIN 11:58
PROVIDERS: ATTEND Internal Medicine Hematology & Oncology
DX: C56.1 Malignant neoplasm of right ovary (principal)
CPT/HCPCS: 82565; 84520; 71260; 74177; 36415; Q9967

== ENCOUNTER 2018-05-22 10:01 | Inpatient (IN) | payer MEDICARE ==
[2018-05-22] MEDS ORDERED: SODIUM CHLORIDE 0.9% 1,000 ML IV STA (10:37)
[2018-05-22] MEDS ORDERED: SODIUM CHLORIDE 0.9% 1,000 ML IV ONE ×2 (10:39→23:06)
--- NOTE | 2018-05-22 10:39 | ED ---
General Adult HPI - General Source: patient, EMS, RN notes reviewed Mode of arrival: EMS Limitations: no limitations <Tomas Pantoja - Last Filed: 05/22/18 14:10> <Victorino Conde - Last Filed: 05/22/18 14:19> - General Chief complaint: Nausea/Vomiting/Diarrhea Stated complaint: diarrhea Time Seen by Provider: 05/22/18 10:06 - History of Present Illness Initial comments: 73-year-old female presents emergency Department chief complaint of diarrhea. Patient states she's had excessive diarrhea for last 24 hours approximately 10- 15 episodes. She states in she was just watery states it semi-formed at this time. Patient states she has abdominal cramping. Patient states her concern today was that she felt very lightheaded and dizzy and states that she feels weak. She states that she is concerned that she may be dehydrated. She states that she is incontinent of urine but has no current dysuria. Reports no fever no chills no chest pain or shortness of breath. Patient states she just feels rundown. (Tomas Pantoja) - Related Data Home Medications Medication Instructions Recorded Confirmed Baclofen 10 mg PO QID PRN 01/06/16 05/22/18 DULoxetine HCL [Cymbalta] 60 mg PO DAILY 01/06/16 05/22/18 oxyCODONE HCL 10 mg PO QID PRN 01/06/16 05/22/18 Insulin NPH Hum/Reg Insulin Hm 14 unit SQ AC-BRKFST 03/17/16 05/22/18 [NovoLIN 70-30 100 UNIT/ML VIAL] Insulin NPH Hum/Reg Insulin Hm 24 unit SQ AC-SUPPER 03/17/16 05/22/18 [NovoLIN 70-30 100 UNIT/ML VIAL] Levothyroxine Sodium [Synthroid] 100 mcg PO DAILY 07/25/17 05/22/18 amLODIPine [Norvasc] 5 mg PO DAILY 07/25/17 05/22/18 Aspirin [Adult Low Dose Aspirin EC] 81 mg PO DAILY 02/19/18 05/22/18 Docusate Sodium [Dok] 100 mg PO BID 02/19/18 05/22/18 Lisinopril 40 mg PO DAILY 02/19/18 05/22/18 Metoprolol Tartrate 25 mg PO BID 02/19/18 05/22/18 Pioglitazone HCl [Actos] 30 mg PO QAM 02/19/18 05/22/18 FLUoxetine HCL [PROzac] 10 mg PO DAILY 05/22/18 05/22/18 Fluticasone Nasal [place] [Flonase 2 spr EA NOSTRIL DAILY 05/22/18 05/22/18 Nasal [place]] Hydrochlorothiazide 12.5 mg PO DAILY 05/22/18 05/22/18 metFORMIN HCL [Glucophage] 500 mg PO BID 05/22/18 05/22/18 Allergies Allergy/AdvReac Type Severity Reaction Status Date / Time adhesive Allergy blisters Verified 05/22/18 10:50 amoxicillin Allergy Rash/Hives Verified 05/22/18 10:50 ciprofloxacin [From Cipro] Allergy Dyspnea Verified 05/22/18 10:50 ciprofloxacin HCl Allergy Dyspnea Verified 05/22/18 10:50 [From Cipro] Review of Systems ROS Other: All systems not noted in ROS Statement are negative. <Tomas Pantoja - Last Filed: 05/22/18 14:10> ROS Other: All systems not noted in ROS Statement are negative. <Victorino Conde - Last Filed: 05/22/18 14:19> ROS Statement: Those systems with pertinent positive or pertinent negative responses have been documented in the HPI. Past Medical History Past Medical History: Asthma, Coronary Artery Disease (CAD), Cancer, Diabetes Mellitus, Hyperlipidemia, Hypertension, Osteoarthritis (OA), Thyroid Disorder Additional Past Medical History / Comment(s): R sided ovarian cancer- tx with chemo finished October 2017, heart murmer, sleeps sitting up- one doctor dx sleep apnea but another said no, no cpap used, constipation, hx diverticulitis, hx anemia, urinary incontinence, past frequent UTI's, History of Any Multi-Drug Resistant Organisms: None Reported Past Surgical History: Appendectomy, Cholecystectomy, Hysterectomy, Joint Replacement, Tonsillectomy Additional Past Surgical History / Comment(s): 06/2017 Exploratory laparotomy with ovarian tumor removal and lysis of adhesions, bilateral knee replacement, bilateral cataract removals, D&C. Past Anesthesia/Blood Transfusion Reactions: No Reported Reaction Additional Past Anesthesia/Blood Transfusion Reaction / Comment(s): Unsure of family history, patient was adopted. Past Psychological History: Bipolar Smoking Status: Former smoker Past Alcohol Use History: Occasional Past Drug Use History: None Reported - Past Family History Father History Unknown: Yes Family Medical History: Unable to Obtain Additional Family Medical History / Comment(s): Pt is adopted and does not know parents medical history. <Tomas Pantoja - Last Filed: 05/22/18 14:10> General Exam Limitations: no limitations General appearance: alert, in no apparent distress Head exam: Present: atraumatic, normocephalic, normal inspection Eye exam: Present: normal appearance, PERRL, EOMI. Absent: scleral icterus, conjunctival injection, periorbital swelling ENT exam: Present: normal exam, mucous membranes moist Neck exam: Present: normal inspection. Absent: tenderness, meningismus, lymphadenopathy Respiratory exam: Present: normal lung sounds bilaterally. Absent: respiratory distress, wheezes, rales, rhonchi, stridor Cardiovascular Exam: Present: regular rate, normal rhythm, normal heart sounds. Absent: systolic murmur, diastolic murmur, rubs, gallop, clicks GI/Abdominal exam: Present: soft, normal bowel sounds. Absent: distended, tenderness, guarding, rebound, rigid Neurological exam: Present: alert, oriented X3, CN II-XII intact, reflexes normal. Absent: motor sensory deficit <Tomas Pantoja - Last Filed: 05/22/18 14:10> Course <Tomas Pantoja - Last Filed: 05/22/18 14:10> <Victorino Conde - Last Filed: 05/22/18 14:19> Vital Signs 05/22/18 05/22/18 05/22/18 10:13 11:00 11:30 Temperature 97.4 F L Pulse Rate 91 86 77 Respiratory 20 16 16 Rate Blood Pressure 87/48 86/24 110/42 O2 Sat by Pulse 99 99 100 Oximetry 05/22/18 05/22/18 05/22/18 12:00 12:30 13:00 Temperature Pulse Rate 85 90 87 Respiratory 18 20 17 Rate Blood Pressure 89/47 126/28 86/57 O2 Sat by Pulse Oximetry 05/22/18 13:30 Temperature Pulse Rate 88 Respiratory 16 Rate Blood Pressure 98/50 O2 Sat by Pulse Oximetry - Reevaluation(s) Reevaluation #1: 05/22/18 13:36 Patient reevaluated. Patient's blood pressure minimally elevated. Patient does have 2 lines 22-gauge in place at this time did receive 2 L bolus. Blood pressure minimally responded to 2 L of fluids systolic in the 90s at this time. Patient will have central line placed by Dr. Conde. Patient will be transfused one unit for symptomatically anemia, positive occult. (Tomas Pantoja) EKG Findings - EKG Comments: EKG Findings:: EKG performed at 11:13 normal sinus rhythm with a right bundle, rate of 81 [place] 140 QRS 124 QT/QTC 412/478 <Tomas Pantoja - Last Filed: 05/22/18 14:10> Procedures - Central Line Placement Right Femoral Consent Obtained: verbal consent Time Out Performed: Yes Patient Placed on Monitor/Pulse Ox: Yes MD Prep: mask, gown, gloves Central Line Prep: Chlorhexidine scrub Local Anesthesia Used: Lidocaine 1% Amount of Anesthesia Used (mls): 2 Central Line Lumen Inserted: triple Bloods Obtained for Lab: Yes Central Line Position: good blood return, all ports aspirated, flushed, capped, sutured in place with 3-0 nylon Dressing Applied: Tegaderm Patient Tolerated Procedure: well Complications: none <Victorino Conde - Last Filed: 05/22/18 14:19> Medical Decision Making - Lab Data Result diagrams: 05/22/18 12:23 <Tomas Pantoja - Last Filed: 05/22/18 14:10> - Lab Data Result diagrams: 05/22/18 12:23 <Victorino Conde - Last Filed: 05/22/18 14:19> - Medical Decision Making 73-year-old female presents emergency from for weakness, diarrhea. Patient was found have melena in emergency department. Patient did have mild hypotension. Patient responded with IV fluids at this time. Central line was placed for access along with 222-gauge IVs. Patient will be transfused one unit for symptomatically anemia. Patient will be admitted for repeat H&H, GI consult, Protonix (Tomas Pantoja) Patient reevaluated by myself, Dr. Conde. Patient also reexamined. Patient has been having diarrhea that has now become bloody stool. Central line placed secondary to unable to obtain sufficient blood as well as transient hypotension. Patient is updated on results and plan. Case was discussed in detail with Dr. Dsouza, covering for Dr. demarco, who admits for Dr. Sanders. GI will be consulted. (Victorino Conde) - Lab Data Lab Results 05/22/18 05/22/18 Range/Units 11:10 12:23 WBC 11.7 H (3.8-10.6) k/uL RBC 2.56 L (3.80-5.40) m/uL Hgb 7.4 L (11.4-16.0) gm/dL Hct 22.7 L (34.0-46.0) % MCV 88.5 (80.0-100.0) fL MCH 29.1 (25.0-35.0) pg MCHC 32.8 (31.0-37.0) g/dL RDW 16.5 H (11.5-15.5) % Plt Count 270 (150-450) k/uL Neutrophils % 78 % Lymphocytes % 13 % Monocytes % 7 % Eosinophils % 1 % Basophils % 0 % Neutrophils # 9.1 H (1.3-7.7) k/uL Lymphocytes # 1.5 (1.0-4.8) k/uL Monocytes # 0.8 (0-1.0) k/uL Eosinophils # 0.1 (0-0.7) k/uL Basophils # 0.0 (0-0.2) k/uL Anisocytosis Slight Stool Occult Blood Positive H (Negative) Disposition <Tomas Pantoja - Last Filed: 05/22/18 14:10> <Victorino Conde - Last Filed: 05/22/18 14:19> Clinical Impression: Anemia, GI bleed, Weakness, Diarrhea Disposition: ADMITTED IP TO THIS HOSP Condition: Fair Referrals: Linda Sanders MD [Primary Care Provider] - 1-2 days
--- NOTE | 2018-05-22 11:56 | XR ---
EXAMINATION TYPE: XR KUB DATE OF EXAM: 05/22/2018 CLINICAL DATA: 73-year-old female with pain, PHH COMPARISON: 10/15/2017 FINDINGS: Supine imaging limited for assessment of free air. Nonobstructive bowel gas pattern. Mild overall stool burden in the right side of the abdomen and also in the rectum. Scattered skin elvis are present along the abdominal midline and left lower quadrant. No suspicious calcifications are seen. IMPRESSION: Nonobstructive bowel gas pattern. Mild stool burden. Retained skin elvis in the mid abdomen and on the left.
[2018-05-22 12:57] LABS: Anisocytosis Slight; Basophils % (A) 0 %; Eosinophils # (A) 0.1 k/uL (0-0.7); Eosinophils % (A) 1 %; HCT 22.7 % (34.0-46.0); HGB 7.4 gm/dL (11.4-16.0); Lymphocytes # (A) 1.5 k/uL (1.0-4.8); Lymphocytes % (A) 13 %; MCH 29.1 pg (25.0-35.0); MCHC 32.8 g/dL (31.0-37.0); MCV 88.5 fL (80.0-100.0); Mean Platelet Volume 8.8; Monocytes # (A) 0.8 k/uL (0-1.0); Monocytes % (A) 7 %; Neutrophils # (A) 9.1 k/uL (1.3-7.7); Neutrophils % (A) 78 %; Platelet Count 270 k/uL (150-450); RBC 2.56 m/uL (3.80-5.40); RDW 16.5 % (11.5-15.5); WBC 11.7 k/uL (3.8-10.6)
[2018-05-22] MEDS ORDERED: PANTOPRAZOLE 40 MG/10 ML VIAL IVP STA (13:20)
[2018-05-22] MEDS ORDERED: MORPHINE SULFATE 4 MG/ML SYRINGE IVP STA (13:54)
[2018-05-22] MEDS ORDERED: NALOXONE 0.4 MG/ML 1 ML VIAL IV PRN (14:12)
[2018-05-22] MEDS ORDERED: ACETAMINOPHEN TAB 325 MG TAB PO PRN (14:12)
[2018-05-22 14:59] LABS: Albumin 2.7 g/dL (3.5-5.0); Calcium 8.4 mg/dL (8.4-10.2); Magnesium 1.9 mg/dL (1.6-2.3); Potassium 4.6 mmol/L (3.5-5.1); Total Bilirubin 0.3 mg/dL (0.2-1.3); Total Protein 5.1 g/dL (6.3-8.2)
[2018-05-22] MEDS: SODIUM CHLORIDE 0.9% 1,000 ML IV SCH (15:02)
[2018-05-22] MEDS ORDERED: fentaNYL (PF) 50 MCG/ML 2 ML AMP IVP STA (16:23)
[2018-05-22] MEDS ORDERED: ALPRAZolam 0.25 MG TAB PO PRN (16:37)
[2018-05-22] MEDS ORDERED: HYDROcodone/APAP 5-325MG 1 EACH TAB PO PRN (16:37)
[2018-05-22] MEDS: ONDANSETRON 4 MG/2 ML VIAL IVP PRN (18:52)
[2018-05-22] MEDS: INSULN ASP PRT/INSULIN ASPART 100 UNIT/ML 10 ML VIAL SQ SCH (18:55)
[2018-05-22] MEDS ORDERED: TEMAZEPAM 15 MG CAP PO PRN (21:00)
[2018-05-22] MEDS ORDERED: INSULIN ASPART 100 UNIT/ML 1 ML 10 ML VIAL SQ SCH (21:00)
--- NOTE | 2018-05-22 21:11 | HP ---
HISTORY AND PHYSICAL DATE OF SERVICE: 05/22/2018 CHIEF COMPLAINT: Nausea, vomiting, diarrhea as well as GI bleed. HISTORY OF PRESENT ILLNESS: This 73-year-old woman with a past medical history of multiple medical problems including asthma, CAD, diabetes type 2, hypertension, DJD, hypothyroidism, being followed by Dr. Linda Sanders in the outpatient setting was complaining of nausea and vomiting for the past couple of days. Patient had multiple episodes of diarrhea. Patient had cramping. Patient also had a melenic stools. Patient came to [facility]. Hemoglobin was found to be 7.4. Patient admitted to the hospital for further evaluation and treatment. Stool OB is positive. There is no history of fever, rigors or chills. No history of headache, loss of consciousness or seizures. The KUB x-ray showed nonobstructive bowel gas pattern. PAST MEDICAL HISTORY: History of CAD, history of diabetes, hypertension, DJD, history of hypothyroidism. MEDICATIONS: Prior to admission include home medications: 1. Oxycodone 10 mg q.i.d. p.r.n. 2. Glucophage 500 mg p.o. b.i.d. 3. Norvasc 5 mg p.o. daily. 4. Actos 30 mg p.o. daily. 5. Metoprolol 25 mg p.o. b.i.d. 6. Lisinopril 40 mg p.o. daily. 7. Synthroid 100 mcg p.o. daily. 8. Novolin 70/30 25 units subcu a.c. supper and 40 units subcu a.c. breakfast. 9. Hydrochlorothiazide 12.5 mg p.o. daily. 10.Flonase nasal spray 2 sprays daily. 11.Prozac 10 mg p.o. daily. 13.Cymbalta 60 mg p.o. daily. 15.Aspirin 81 mg p.o. daily. ALLERGIES: ADHESIVES, AMOXICILLIN, CIPROFLOXACIN. FAMILY HISTORY: The patient is adopted. SOCIAL HISTORY: Previous history of smoking. Occasional alcohol intake. REVIEW OF SYSTEMS: ENT: Diminished hearing and diminished vision. CARDIOVASCULAR: No angina. RESPIRATORY: No cough. GI: As mentioned earlier. no dysuria. Nervous system: No numbness or weakness. ALLERGY/IMMUNOLOGY: No asthma or hay fever. MUSCULOSKELETAL: As mentioned earlier. Hematology/Oncology: No history of anemia. ENDOCRINE: Hypothyroidism and diabetes. CONSTITUTIONAL: As mentioned earlier. Dermatology: Negative. Rheumatology: Negative. Psychiatry: As mentioned earlier. PHYSICAL EXAMINATION: The patient is alert and oriented times three. Pulse 100. Blood pressure 140/39 , respiratory rate 16, temperature 97 degrees. Pulse ox 100 percent on 2 L. HEENT is conjunctivae normal. Oral mucosa moist. Neck is no jugular venous distention. No lymph node enlargement. Cardiovascular: S1, S2 muffled. Respiratory: Breath sounds diminished in the bases. A few scattered rhonchi. No crackles. ABDOMEN: Soft, obese, mild diffuse discomfort to palpation. LEGS: No edema. No swelling. NERVOUS SYSTEM: Higher functions as mentioned earlier. Moves all four limbs. No focal deficits. Lymphatics: No lymph nodes palpable in the neck, axillae or groin. SKIN. No ulcers. No rashes. No bleeding. LAB STUDIES: WBC 11.7, hemoglobin 7.4, sodium 133, creatinine is 1.62. Stool OB is positive. ASSESSMENT: 1. Diarrhea, nausea, vomiting, possible acute gastroenteritis. 2. Rule out gastrointestinal bleed. 3. Acute blood loss anemia. 4. Increased WBC. 5. Hyponatremia. 6. Increased creatinine with possible acute renal failure possibly prerenal. 7. History of asthma. 8. Coronary artery disease. 9. Diabetes type 2. 10.Hypertension. 11.Hyperlipidemia. 12.History of degenerative joint disease. 13.Hypothyroidism. 14.Right-sided ovarian cancer status post chemo, finished chemo. 15.History of cholecystectomy. 16.History of bipolar. 17.Remote history of nicotine dependence. 18.Obesity with body mass index 42.3. RECOMMENDATIONS AND DISCUSSION: In this 73-year-old woman who presented with multiple complex medical issues, we will monitor the patient closely. Continue the current medications, management and symptomatic treatment. We will stop nephrotoxic medications. Monitor hemoglobin, H&H closely. Monitor blood sugars closely. IV fluids. Gastroenterology consultation. Otherwise I would also recommend a CT scan of the abdomen and pelvis to complete workup. Overall prognosis guarded because of multiple complex medical issues. Further recommendations to follow. A copy of dictation being forwarded to Dr. Sanders who is the primary physician. MMODL / IJN: [id number] / [facility]OSPITALJose De Jesus
[2018-05-22] MEDS: METOPROLOL TARTRATE 25 MG TAB PO SCH (21:14)
[2018-05-22] MEDS: IOPAMIDOL-300 CONTRAST 30 ML VIAL (ORAL USE) PO PRN ×2 (21:15→22:06)
[2018-05-22] MEDS: HEPARIN SODIUM,PORCINE 5,000 UNIT/ML 1 ML VIAL SQ SCH (21:15)
[2018-05-22] MEDS: metFORMIN 500 MG TAB PO SCH (21:17)
[2018-05-22] MEDS: PANTOPRAZOLE 40 MG/10 ML VIAL IV SCH (21:18)
[2018-05-22 21:23] LABS: Glucose,Whole Blood 215 mg/dL (75-99)
[2018-05-22] MEDS: HYDROmorphone 1 MG/ML 1 ML SYRINGE IVP PRN (21:25)
[2018-05-22 23:52] LABS: Basophils % (A) 0 %; Eosinophils # (A) 0.1 k/uL (0-0.7); Eosinophils % (A) 1 %; HCT 23.1 % (34.0-46.0); HGB 7.3 gm/dL (11.4-16.0); Hypochromasia Slight; Lymphocytes # (A) 1.5 k/uL (1.0-4.8); Lymphocytes % (A) 13 %; MCH 29.3 pg (25.0-35.0); MCHC 31.8 g/dL (31.0-37.0); MCV 92.1 fL (80.0-100.0); Monocytes # (A) 0.9 k/uL (0-1.0); Monocytes % (A) 8 %; Neutrophils # (A) 9.3 k/uL (1.3-7.7); Neutrophils % (A) 76 %; Platelet Count 274 k/uL (150-450); RBC 2.51 m/uL (3.80-5.40); RDW 15.9 % (11.5-15.5); WBC 12.2 k/uL (3.8-10.6)
[2018-05-23 00:01] LABS: Appearance,Urine Cloudy (Clear); Bacteria,Urine Many /hpf; Bilirubin,Urine Negative (Negative); Blood,Urine Small (Negative); Color,Urine Light Yellow; Glucose,Urine (UA) Negative (Negative); Ketones,Urine Negative (Negative); Leukocyte Esterase,Urine Large (Negative); Mucus,Urine Rare /hpf; Nitrite,Urine Negative (Negative); Protein,Urine Negative (Negative); RBC,Urine 1 /hpf (0-5); Specific Gravity,Urine 1.011 (1.001-1.035); Squamous Epithelial Cell,Urine 1 /hpf (0-4); Urobilinogen,Urine <2.0 mg/dL (<2.0); WBC,Urine 90 /hpf (0-5)
[2018-05-23 00:59] LABS: Glucose,Whole Blood 187 mg/dL (75-99)
[2018-05-23] MEDS: ONDANSETRON 4 MG/2 ML VIAL IVP PRN ×2 (02:36→11:23)
[2018-05-23 02:50] LABS: Basophils % (A) 0 %; Eosinophils # (A) 0.1 k/uL (0-0.7); Eosinophils % (A) 1 %; Hypochromasia Slight; Lymphocytes # (A) 1.4 k/uL (1.0-4.8); Lymphocytes % (A) 12 %; MCH 29.9 pg (25.0-35.0); MCHC 32.5 g/dL (31.0-37.0); MCV 91.9 fL (80.0-100.0); Mean Platelet Volume 7.6; Monocytes # (A) 1.1 k/uL (0-1.0); Monocytes % (A) 9 %; Neutrophils # (A) 8.9 k/uL (1.3-7.7); Neutrophils % (A) 76 %; Platelet Count 246 k/uL (150-450); RBC 2.29 m/uL (3.80-5.40); RDW 15.9 % (11.5-15.5); WBC 11.8 k/uL (3.8-10.6)
[2018-05-23 02:54] LABS: HGB 6.8 gm/dL (11.4-16.0)
[2018-05-23] MEDS: HYDROmorphone 1 MG/ML 1 ML SYRINGE IVP PRN ×3 (03:33→19:15)
[2018-05-23] MEDS ORDERED: SODIUM CHLORIDE 0.9% 1,000 ML IV ONE (03:55)
[2018-05-23] MEDS: SODIUM CHLORIDE 0.9% 1,000 ML IV SCH ×5 (04:00→21:09)
[2018-05-23 05:35] LABS: Glucose,Whole Blood 214 mg/dL (75-99)
[2018-05-23 05:45] LABS: Anisocytosis Slight; Basophils % (A) 0 %; Eosinophils # (A) 0.1 k/uL (0-0.7); Eosinophils % (A) 1 %; Hypochromasia Slight; Lymphocytes % (A) 10 %; MCH 30.7 pg (25.0-35.0); MCHC 33.2 g/dL (31.0-37.0); MCV 92.4 fL (80.0-100.0); Mean Platelet Volume 7.4; Monocytes # (A) 0.8 k/uL (0-1.0); Monocytes % (A) 8 %; Neutrophils # (A) 8.1 k/uL (1.3-7.7); Neutrophils % (A) 79 %; Platelet Count 219 k/uL (150-450); RBC 2.09 m/uL (3.80-5.40); RDW 16.1 % (11.5-15.5); WBC 10.3 k/uL (3.8-10.6)
[2018-05-23 05:47] LABS: HGB 6.4 gm/dL (11.4-16.0)
[2018-05-23 05:48] LABS: HCT 19.3 % (34.0-46.0)
[2018-05-23 05:54] LABS: Calcium 7.8 mg/dL (8.4-10.2); Phosphorus 4.3 mg/dL (2.5-4.5); Potassium 4.2 mmol/L (3.5-5.1)
[2018-05-23] MEDS: INSULIN ASPART 100 UNIT/ML 1 ML 10 ML VIAL SQ SCH ×3 (06:42→18:05)
[2018-05-23] MEDS: LEVOTHYROXINE 100 MCG TAB PO SCH (06:45)
[2018-05-23] MEDS: INSULN ASP PRT/INSULIN ASPART 100 UNIT/ML 10 ML VIAL SQ SCH ×2 (08:17→18:00)
[2018-05-23] MEDS ORDERED: LISINOPRIL 20 MG TAB PO SCH (09:00)
[2018-05-23] MEDS ORDERED: HYDROCHLOROTHIAZIDE 12.5 MG CAP PO SCH (09:00)
[2018-05-23] MEDS ORDERED: amLODIPine 5 MG TAB PO SCH (09:00)
[2018-05-23] MEDS: METOPROLOL TARTRATE 25 MG TAB PO SCH ×2 (09:49→22:00)
[2018-05-23] MEDS: PANTOPRAZOLE 40 MG/10 ML VIAL IV SCH ×2 (09:58→20:53)
[2018-05-23] MEDS: HEPARIN SODIUM,PORCINE 5,000 UNIT/ML 1 ML VIAL SQ SCH ×2 (09:59→21:05)
[2018-05-23] MEDS: DULoxetine HCL 60 MG CAPSULE.DR PO SCH (09:59)
[2018-05-23] MEDS: FLUoxetine HCL 10 MG CAP PO SCH (09:59)
[2018-05-23] MEDS: FLUTICASONE 50MCG/SPRAY NASAL 16GM EA NOSTRIL SCH (09:59)
[2018-05-23] MEDS: metFORMIN 500 MG TAB PO SCH ×2 (10:45→20:53)
[2018-05-23] MEDS: PIOGLITAZONE 30 MG TAB PO SCH (10:46)
[2018-05-23] MEDS: IOPAMIDOL-300 CONTRAST 30 ML VIAL (ORAL USE) PO PRN ×2 (11:22→12:29)
[2018-05-23 11:53] LABS: Glucose,Whole Blood 169 mg/dL (75-99)
--- NOTE | 2018-05-23 12:28 | P.CNPUL ---
History of Present Illness Consult date: 05/23/18 Reason for consult: other (GI bleeding and anemia) Chief complaint: Nausea vomiting diarrhea and black stool History of present illness: This is a 73-year-old female with history of mild intermittent asthma, coronary artery disease, hypertension, hypothyroidism, type 2 diabetes, patient is primarily a patient of Dr. Sanders. She was seen yesterday in the ER with mostly 2 days history of nausea vomiting, diarrhea, and some vague abdominal cramps. Patient has also noted some melanotic stools. Hemoglobin on admission was 7.3, patient was also noted to have abnormal urinalysis with bacteriuria and pyuria. Patient was initially admitted to regular medical floor, however at night she had further episodes of GI bleeding, drop in her hemoglobin, and low blood pressure. Patient was transferred to the ICU, and so far the patient received a total of 2 units of packed RBCs, and there is one pending. Her last hemoglobin was 6.8 after 2 units of packed RBCs. Considering the patient was transferred to the ICU, I was asked to see her on consultation. Patient did receive fluids, and received a blood transfusion as noted above. During my evaluation, patient felt generally weak, denies any headache, no blurred vision , no dizziness, she has no nausea vomiting or abdominal pain at the time of my evaluation, she had no chest pain, no hematemesis. But she did note black stools earlier today. Her electrolytes were normal, however her BUN was initially 106 and now is down to 80 her creatinine was 1.62 and is now 1.36. Again her urinalysis was abnormal consistent with urinary tract infection. Patient however has no symptoms of UTI, her symptoms are mostly symptoms of gastroenteritis. Review of Systems 14 point review of systems were obtained, please refer to pertinent positives as noted in HPI, otherwise remaining systems are negative Past Medical History Past Medical History: Asthma, Coronary Artery Disease (CAD), Cancer, Diabetes Mellitus, Hyperlipidemia, Hypertension, Osteoarthritis (OA), Thyroid Disorder Additional Past Medical History / Comment(s): R sided ovarian cancer- tx with chemo finished October 2017, heart [place], sleeps sitting up- one doctor dx sleep apnea but another said no, no cpap used, constipation, hx anemia- recieved iron infusion, urinary incontinence, past frequent UTI's, 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 ), calcium clot lt eye, non functioning neurostimlator removed. Past Anesthesia/Blood Transfusion Reactions: No Reported Reaction Additional Past Anesthesia/Blood Transfusion Reaction / Comment(s): Unsure of family history, patient was adopted. Past Psychological History: Bipolar Additional Psychological History / Comment(s): pt lives alone in [facility].has a cat named mannie. uses cane/walker at times. no home care services. Smoking Status: Former smoker Past Alcohol Use History: Occasional Additional Past Alcohol Use History / Comment(s): Pt started smoking in 1959, quit for good in 1997. 1-2 PPD Past Drug Use History: None Reported - Past Family History Father History Unknown: Yes Family Medical History: Unable to Obtain Additional Family Medical History / Comment(s): Pt is adopted and does not know parents medical history. Medications and Allergies Home Medications Medication Instructions Recorded Confirmed Type Baclofen 10 mg PO QID PRN 01/06/16 05/22/18 History DULoxetine HCL [Cymbalta] 60 mg PO DAILY 01/06/16 05/22/18 History oxyCODONE HCL 10 mg PO QID PRN 01/06/16 05/22/18 History Insulin NPH Hum/Reg Insulin Hm 14 unit SQ AC-BRKFST 03/17/16 05/22/18 History [NovoLIN 70-30 100 UNIT/ML VIAL] Insulin NPH Hum/Reg Insulin Hm 24 unit SQ AC-SUPPER 03/17/16 05/22/18 History [NovoLIN 70-30 100 UNIT/ML VIAL] Levothyroxine Sodium [Synthroid] 100 mcg PO DAILY 07/25/17 05/22/18 History amLODIPine [Norvasc] 5 mg PO DAILY 07/25/17 05/22/18 History Aspirin [Adult Low Dose Aspirin EC] 81 mg PO DAILY 02/19/18 05/22/18 History Docusate Sodium [Dok] 100 mg PO BID 02/19/18 05/22/18 History Lisinopril 40 mg PO DAILY 02/19/18 05/22/18 History Metoprolol Tartrate 25 mg PO BID 02/19/18 05/22/18 History Pioglitazone HCl [Actos] 30 mg PO QAM 02/19/18 05/22/18 History FLUoxetine HCL [PROzac] 10 mg PO DAILY 05/22/18 05/22/18 History Fluticasone Nasal [place] [Flonase 2 spr EA NOSTRIL DAILY 05/22/18 05/22/18 History Nasal [place]] Hydrochlorothiazide 12.5 mg PO DAILY 05/22/18 05/22/18 History metFORMIN HCL [Glucophage] 500 mg PO BID 05/22/18 05/22/18 History Allergies Allergy/AdvReac Type Severity Reaction Status Date / Time adhesive Allergy blisters Verified 05/22/18 10:50 amoxicillin Allergy Rash/Hives Verified 05/22/18 10:50 ciprofloxacin [From Cipro] Allergy Dyspnea Verified 05/22/18 10:50 ciprofloxacin HCl Allergy Dyspnea Verified 05/22/18 10:50 [From Cipro] Physical Exam Vitals: Vital Signs Temp Pulse Pulse Resp BP BP Pulse Ox 05/23/18 11:34 99.1 F 103 H 17 104/45 96 05/23/18 11:30 106 H 11 L 105/56 95 05/23/18 11:00 101 H 17 107/35 97 05/23/18 10:30 102 H 16 106/31 94 L 05/23/18 10:00 104 H 15 110/37 95 05/23/18 09:30 100 18 104/34 97 05/23/18 09:19 98.5 F 101 H 17 98/23 96 05/23/18 09:00 111 H 14 99/33 96 05/23/18 08:49 98.2 F 102 H 16 99/33 97 05/23/18 08:39 98.1 F 104 H 20 88/33 95 05/23/18 08:30 104 H 14 101/32 05/23/18 08:00 105 H 11 L 93/34 96 05/23/18 07:30 102 H 12 85/35 05/23/18 07:00 101 H 8 L 84/32 93 L 05/23/18 06:30 103 H 16 96/28 05/23/18 06:00 104 H 14 95/43 93 L 05/23/18 05:30 101 H 5 L 91/44 94 L 05/23/18 05:00 105 H 10 L 102/37 97 05/23/18 04:30 101 H 14 100/31 94 L 05/23/18 04:00 103 H 14 89/34 90 L 05/23/18 03:30 109 H 23 99/32 92 L 05/23/18 03:00 113 H 10 L 113/70 95 05/23/18 02:30 112 H 12 103/31 98 05/23/18 02:00 115 H 9 L 114/32 95 05/23/18 01:30 107 H 13 125/33 05/23/18 01:00 107 H 14 121/36 98 05/23/18 00:41 113 H 19 05/22/18 22:46 93/32 05/22/18 22:08 100 96/61 05/22/18 20:10 97.6 F 101 H 18 121/63 100 05/22/18 19:30 109 H 15 123/49 100 05/22/18 19:20 98.8 F 100 16 123/49 100 05/22/18 19:00 96 20 123/68 100 05/22/18 18:30 95 19 114/39 100 05/22/18 18:20 97.0 F L 100 16 114/39 100 05/22/18 18:00 90 13 117/43 05/22/18 17:50 98.2 F 89 16 117/43 93 L 05/22/18 17:40 98.6 F 90 20 95/38 05/22/18 17:30 89 11 L 112/45 05/22/18 17:00 90 10 L 94/58 05/22/18 16:50 100 16 94/58 100 05/22/18 16:30 98 18 102/85 100 05/22/18 16:00 90 3 L 113/45 100 05/22/18 15:30 22 120/49 100 05/22/18 15:00 89 17 60/42 100 05/22/18 14:39 86 16 78/22 100 05/22/18 14:30 93 14 109/69 100 05/22/18 14:00 87 14 121/47 100 05/22/18 13:30 88 16 98/50 05/22/18 13:00 87 17 86/57 05/22/18 12:30 90 20 126/28 Intake and Output 05/22/18 05/23/18 05/23/18 22:59 06:59 14:59 Intake Total 310 1600 1120 Output Total 1090 1200 Balance 310 510 -80 Intake: IV 1500 500 Sodium Chloride 0.9% 1, 500 500 000 ml @ 100 mls/hr IV . Q10H [place] Rx#:[id number] Sodium Chloride 0.9% 1, 1000 000 ml @ 999 mls/hr IV . Q1H1M ONE Rx#:[id number] Oral 100 Blood Product 310 620 Rc As-1 Unit 310 [id number] Rc As-1 Unit 310 [id number] Output: Urine 1090 1200 Other: Voiding Method Incontinent Indwelling Catheter # Voids 2 Physical Exam: Revealed a 73-year-old female in no distress. Head: Atraumatic, normocephalic. HEENT:[Neck is supple.] [No neck masses.] [No thyromegaly.] [No JVD.] Chest: [Clear throughout, no crackles, no rhonchi, no wheezes.] Cardiac Exam: [Normal S1 and S2, no S3 gallop, no murmur.] Abdomen: [Soft, nontender, no megaly, no rebound, no guarding, normal bowel sounds.] Extremities: [No clubbing, no edema, no cyanosis.] Neurological Exam: [No focal neurologic deficit.] Skin: No rashes. Psychiatric: Normal mood, affect and mental status examination. Results - Laboratory Findings CBC and BMP: 05/23/18 05:02 05/23/18 05:02 Abnormal lab findings: Abnormal Labs 05/22/18 05/22/18 05/22/18 11:10 12:23 13:20 WBC 11.7 H RBC 2.56 L Hgb 7.4 L Hct 22.7 L RDW 16.5 H Neutrophils # 9.1 H Monocytes # Sodium Chloride Carbon Dioxide BUN Creatinine Glucose POC Glucose (mg/dL) Calcium AST Total Protein Albumin Urine Appearance Urine Blood Ur Leukocyte Esterase Urine WBC Urine WBC Clumps Urine Bacteria Urine Mucus Stool Occult Blood Positive H Crossmatch See Detail 05/22/18 05/22/18 05/22/18 14:05 21:11 21:39 WBC 12.2 H RBC 2.51 L Hgb 7.3 L Hct 23.1 L RDW 15.9 H Neutrophils # 9.3 H Monocytes # Sodium 133 L Chloride Carbon Dioxide 18 L BUN 106 H* Creatinine 1.62 H Glucose 190 H POC Glucose (mg/dL) 215 H Calcium AST 13 L Total Protein 5.1 L Albumin 2.7 L Urine Appearance Urine Blood Ur Leukocyte Esterase Urine WBC Urine WBC Clumps Urine Bacteria Urine Mucus Stool Occult Blood Crossmatch 05/22/18 05/23/18 05/23/18 23:42 00:45 01:50 WBC 11.8 H RBC 2.29 L Hgb 6.8 L* Hct 21.0 L RDW 15.9 H Neutrophils # 8.9 H Monocytes # 1.1 H Sodium Chloride Carbon Dioxide BUN Creatinine Glucose POC Glucose (mg/dL) 187 H Calcium AST Total Protein Albumin Urine Appearance Cloudy H Urine Blood Small H Ur Leukocyte Esterase Large H Urine WBC 90 H Urine WBC Clumps Many H Urine Bacteria Many H Urine Mucus Rare H Stool Occult Blood Crossmatch 05/23/18 05/23/18 05/23/18 05:02 05:02 05:10 WBC RBC 2.09 L Hgb 6.4 L* Hct 19.3 L* RDW 16.1 H Neutrophils # 8.1 H Monocytes # Sodium 136 L Chloride 112 H Carbon Dioxide 19 L BUN 80 H Creatinine 1.36 H Glucose 185 H POC Glucose (mg/dL) 214 H Calcium 7.8 L AST Total Protein Albumin Urine Appearance Urine Blood Ur Leukocyte Esterase Urine WBC Urine WBC Clumps Urine Bacteria Urine Mucus Stool Occult Blood Crossmatch 05/23/18 11:50 WBC RBC Hgb Hct RDW Neutrophils # Monocytes # Sodium Chloride Carbon Dioxide BUN Creatinine Glucose POC Glucose (mg/dL) 169 H Calcium AST Total Protein Albumin Urine Appearance Urine Blood Ur Leukocyte Esterase Urine WBC Urine WBC Clumps Urine Bacteria Urine Mucus Stool Occult Blood Crossmatch - Diagnostic Findings Additional studies: KUB done on admission showed nonobstructive bowel gas pattern. Assessment and Plan Assessment: Impression: Acute gastroenteritis associated with GI bleeding and anemia. Anemia secondary to acute blood loss. Acute hypovolemia and hypotension, strongly doubt sepsis and/or septic shock. Acute kidney injury however I believe it is mostly prerenal azotemia. Acute urinary tract infection is a strongly suspected based on the urinalysis. Urine cultures are pending. Place patient empirically on Rocephin for now. History of multiple comorbidities including mild intermittent asthma presently inactive, coronary artery disease, type 2 diabetes, hypertension, hyperlipidemia , degenerative joint disease, hypothyroidism, history of ovarian cancer status post chemotherapy over a year ago, history of bipolar disorder, and remote history of smoking. Obesity with body mass index of 42.3. Recommendation: Agree with the present treatment plan including blood transfusions, hydration, empiric antibiotics for urinary tract infection, Continue to monitor hemoglobin and hematocrit every few hours, initiated GI consultation. We'll follow closely while in the ICU. Time with Patient: Greater than 30
[2018-05-23] MEDS: BACLOFEN 10 MG TAB PO PRN (12:29)
--- NOTE | 2018-05-23 12:44 | P.CONS ---
History of Present Illness - Reason for Consult Consult date: 05/23/18 Anemia, GI bleed - History of Present Illness The patient is a 73-year-old white female, who was diagnosed with ovarian cancer in 05/18. She is followed by myself in the outpatient setting. She underwent radical surgery by Dr. Downey at [facility] in early . All obvious disease was removed. The patient was then started on adjuvant chemotherapy with carboplatin and Taxol, in 07/19, and completed that by 11/16. She switched her care year, and is on follow-up in the office. She was last seen in 03/[address] scans just prior to that visit showing no evident disease. She was continued on surveillance with next office visit and CT scans due next month The patient states that about 2 days ago she developed some abdominal discomfort with cramps, nausea, and diarrhea. She did notice obvious black stools. She experiences decrease in appetite. The symptoms of progressive in nature, causing her to get increasingly weak. She therefore came in to the hospital. Hemoglobin on admission was in the 7 range is subsequently declined to 6.4. The patient was admitted to the ICU, and received a unit of blood. Bowel movements inpatient were also noted to be black The patient had an attempted colonoscopy in 02/16, which was incomplete due to marked diverticulosis. She states that she subsequently had a CT colonoscopy at [facility] last month, but is not aware of the results. She thinks that she has had an EGD before, but that has been at least some years ago. She denies any difficulty swallowing, or heartburn Review of Systems Constitutional: Reports poor appetite, Reports weakness Eyes: denies blurred vision, denies pain Ears: deny: decreased hearing, ear discharge, earache, tinnitus Ears, nose, mouth and throat: Denies headache, Denies sore throat Cardiovascular: Reports dyspnea on exertion Respiratory: Denies cough Gastrointestinal: Reports abdominal pain, Reports diarrhea, Reports melena, Reports nausea, Denies vomiting Genitourinary: Reports as per HPI, Denies dysuria, Denies hematuria Menstruation: Reports postmenopausal Musculoskeletal: Reports muscle weakness Integumentary: Denies pruritus, Denies rash Neurological: Reports paresthesias (Mild residual, and hasn't feet, due to chemotherapy), Reports weakness Psychiatric: Denies anxiety, Denies depression Endocrine: Reports fatigue Hematologic/Lymphatic: Reports as per HPI Past Medical History Past Medical History: Asthma, Coronary Artery Disease (CAD), Cancer, Diabetes Mellitus, Hyperlipidemia, Hypertension, Osteoarthritis (OA), Thyroid Disorder Additional Past Medical History / Comment(s): R sided ovarian cancer- tx with chemo finished October 2017, heart murmer, sleeps sitting up- one doctor dx sleep apnea but another said no, no cpap used, constipation, hx anemia- recieved iron infusion, urinary incontinence, past frequent UTI's, 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 ), calcium clot lt eye, non functioning neurostimlator removed. Past Anesthesia/Blood Transfusion Reactions: No Reported Reaction Additional Past Anesthesia/Blood Transfusion Reaction / Comm: Unsure of family history, patient was adopted. Past Psychological History: Bipolar Additional Psychological History / Comment(s): pt lives alone in [facility].has a cat named mannie. uses cane/walker at times. no home care services. Smoking Status: Former smoker Past Alcohol Use History: Occasional Additional Past Alcohol Use History / Comment(s): Pt started smoking in 1959, quit for good in 1997. 1-2 PPD Past Drug Use History: None Reported - Past Family History Father History Unknown: Yes Family Medical History: Unable to Obtain Additional Family Medical History / Comment(s): Pt is adopted and does not know parents medical history. Medications and Allergies Home Medications Medication Instructions Recorded Confirmed Type Baclofen 10 mg PO QID PRN 01/06/16 05/22/18 History DULoxetine HCL [Cymbalta] 60 mg PO DAILY 01/06/16 05/22/18 History oxyCODONE HCL 10 mg PO QID PRN 01/06/16 05/22/18 History Insulin NPH Hum/Reg Insulin Hm 14 unit SQ -BRKFST 03/17/16 05/22/18 History [NovoLIN 70-30 100 UNIT/ML VIAL] Insulin NPH Hum/Reg Insulin Hm 24 unit SQ AC-SUPPER 03/17/16 05/22/18 History [NovoLIN 70-30 100 UNIT/ML VIAL] Levothyroxine Sodium [Synthroid] 100 mcg PO DAILY 07/25/17 05/22/18 History amLODIPine [Norvasc] 5 mg PO DAILY 07/25/17 05/22/18 History Aspirin [Adult Low Dose Aspirin EC] 81 mg PO DAILY 02/19/18 05/22/18 History Docusate Sodium [Dok] 100 mg PO BID 02/19/18 05/22/18 History Lisinopril 40 mg PO DAILY 02/19/18 05/22/18 History Metoprolol Tartrate 25 mg PO BID 02/19/18 05/22/18 History Pioglitazone HCl [Actos] 30 mg PO QAM 02/19/18 05/22/18 History FLUoxetine HCL [PROzac] 10 mg PO DAILY 05/22/18 05/22/18 History Fluticasone Nasal Penrose [Flonase 2 spr EA NOSTRIL DAILY 05/22/18 05/22/18 History Nasal Penrose] Hydrochlorothiazide 12.5 mg PO DAILY 05/22/18 05/22/18 History metFORMIN HCL [Glucophage] 500 mg PO BID 05/22/18 05/22/18 History Allergies Allergy/AdvReac Type Severity Reaction Status Date / Time adhesive Allergy blisters Verified 05/22/18 10:50 amoxicillin Allergy Rash/Hives Verified 05/22/18 10:50 ciprofloxacin [From Cipro] Allergy Dyspnea Verified 05/22/18 10:50 ciprofloxacin HCl Allergy Dyspnea Verified 05/22/18 10:50 [From Cipro] Physical Exam Vitals: Vital Signs Temp Pulse Pulse Resp BP BP Pulse Ox 05/23/18 11:34 99.1 F 103 H 17 104/45 96 05/23/18 11:30 106 H 11 L 105/56 95 05/23/18 11:00 101 H 17 107/35 97 05/23/18 10:30 102 H 16 106/31 94 L 05/23/18 10:00 104 H 15 110/37 95 05/23/18 09:30 100 18 104/34 97 05/23/18 09:19 98.5 F 101 H 17 98/23 96 05/23/18 09:00 111 H 14 99/33 96 05/23/18 08:49 98.2 F 102 H 16 99/33 97 05/23/18 08:39 98.1 F 104 H 20 88/33 95 05/23/18 08:30 104 H 14 101/32 05/23/18 08:00 105 H 11 L 93/34 96 05/23/18 07:30 102 H 12 85/35 05/23/18 07:00 101 H 8 L 84/32 93 L 05/23/18 06:30 103 H 16 96/28 05/23/18 06:00 104 H 14 95/43 93 L 05/23/18 05:30 101 H 5 L 91/44 94 L 05/23/18 05:00 105 H 10 L 102/37 97 05/23/18 04:30 101 H 14 100/31 94 L 05/23/18 04:00 103 H 14 89/34 90 L 05/23/18 03:30 109 H 23 99/32 92 L 05/23/18 03:00 113 H 10 L 113/70 95 05/23/18 02:30 112 H 12 103/31 98 05/23/18 02:00 115 H 9 L 114/32 95 05/23/18 01:30 107 H 13 125/33 05/23/18 01:00 107 H 14 121/36 98 05/23/18 00:41 113 H 19 05/22/18 22:46 93/32 05/22/18 22:08 100 96/61 05/22/18 20:10 97.6 F 101 H 18 121/63 100 05/22/18 19:30 109 H 15 123/49 100 05/22/18 19:20 98.8 F 100 16 123/49 100 05/22/18 19:00 96 20 123/68 100 18 18:30 95 19 114/39 100 18 18:20 97.0 F L 100 16 114/39 100 18 18:00 90 13 117/43 05/22/18 17:50 98.2 F 89 16 117/43 93 L 18 17:40 98.6 F 90 20 95/38 05/22/18 17:30 89 11 L 112/45 05/22/18 17:00 90 10 L 94/58 05/22/18 16:50 100 16 94/58 100 05/22/18 16:30 98 18 102/85 100 11/21/18 16:00 90 3 L 113/45 100 05/22/18 15:30 22 120/49 100 05/22/18 15:00 89 17 60/42 100 05/22/18 14:39 86 16 78/22 100 05/22/18 14:30 93 14 109/69 100 05/22/18 14:00 87 14 121/47 100 05/22/18 13:30 88 16 98/50 05/22/18 13:00 87 17 86/57 Intake and Output 05/22/18 05/23/18 05/23/18 22:59 06:59 14:59 Intake Total 310 1600 1120 Output Total 1090 1200 Balance 310 510 -80 Intake: IV 1500 500 Sodium Chloride 0.9% 1, 500 500 000 ml @ 100 mls/hr IV . Q10H [place] Rx#:[id number] Sodium Chloride 0.9% 1, 1000 000 ml @ 999 mls/hr IV . Q1H1M ONE Rx#:[id number] Oral 100 Blood Product 310 620 Rc As-1 Unit 310 [id number] Rc As-1 Unit 310 [id number] Output: Urine 1090 1200 Other: Voiding Method Incontinent Indwelling Catheter # Voids 2 - Constitutional General appearance: no acute distress - EENT Eyes: EOMI, PERRLA ENT: hearing grossly normal, normal oropharynx - Neck Neck: no lymphadenopathy Thyroid: bilateral: normal size - Respiratory Respiratory: bilateral: CTA - Cardiovascular Rhythm: regular Heart sounds: normal: S1, S2 - Gastrointestinal General gastrointestinal: normal bowel sounds, soft - Integumentary Integumentary: normal - Neurologic Neurologic: CNII-XII intact - Musculoskeletal Musculoskeletal: generalized weakness, strength equal bilaterally - Psychiatric Psychiatric: A&O x's 3, appropriate affect Results CBC & Chem 7: 05/23/18 05:02 05/23/18 05:02 Labs: Abnormal Lab Results - Last 24 Hours (Table) 05/22/18 05/22/18 05/22/18 Range/Units 12:23 13:20 14:05 WBC 11.7 H (3.8-10.6) k/uL RBC 2.56 L (3.80-5.40) m/uL Hgb 7.4 L (11.4-16.0) gm/dL Hct 22.7 L (34.0-46.0) % RDW 16.5 H (11.5-15.5) % Neutrophils # 9.1 H (1.3-7.7) k/uL Monocytes # (0-1.0) k/uL Sodium 133 L (137-145) mmol/L Chloride (98-107) mmol/L Carbon Dioxide 18 L (22-30) mmol/L BUN 106 H* (7-17) mg/dL Creatinine 1.62 H (0.52-1.04) mg/dL Glucose 190 H (74-99) mg/dL POC Glucose (mg/dL) (75-99) mg/dL Calcium (8.4-10.2) mg/dL AST 13 L (14-36) U/L Total Protein 5.1 L (6.3-8.2) g/dL Albumin 2.7 L (3.5-5.0) g/dL Urine Appearance (Clear) Urine Blood (Negative) Ur Leukocyte Esterase (Negative) Urine WBC (0-5) /hpf Urine WBC Clumps (None) /hpf Urine Bacteria (None) /hpf Urine Mucus (None) /hpf Crossmatch See Detail 05/22/18 05/22/18 05/22/18 Range/Units 21:11 21:39 23:42 WBC 12.2 H (3.8-10.6) k/uL RBC 2.51 L (3.80-5.40) m/uL Hgb 7.3 L (11.4-16.0) gm/dL Hct 23.1 L (34.0-46.0) % RDW 15.9 H (11.5-15.5) % Neutrophils # 9.3 H (1.3-7.7) k/uL Monocytes # (0-1.0) k/uL Sodium (137-145) mmol/L Chloride (98-107) mmol/L Carbon Dioxide (22-30) mmol/L BUN (7-17) mg/dL Creatinine (0.52-1.04) mg/dL Glucose (74-99) mg/dL POC Glucose (mg/dL) 215 H (75-99) mg/dL Calcium (8.4-10.2) mg/dL AST (14-36) U/L Total Protein (6.3-8.2) g/dL Albumin (3.5-5.0) g/dL Urine Appearance Cloudy H (Clear) Urine Blood Small H (Negative) Ur Leukocyte Esterase Large H (Negative) Urine WBC 90 H (0-5) /hpf Urine WBC Clumps Many H (None) /hpf Urine Bacteria Many H (None) /hpf Urine Mucus Rare H (None) /hpf Crossmatch 05/23/18 05/23/18 05/23/18 Range/Units 00:45 01:50 05:02 WBC 11.8 H (3.8-10.6) k/uL RBC 2.29 L 2.09 L (3.80-5.40) m/uL Hgb 6.8 L* 6.4 L* (11.4-16.0) gm/dL Hct 21.0 L 19.3 L* (34.0-46.0) % RDW 15.9 H 16.1 H (11.5-15.5) % Neutrophils # 8.9 H 8.1 H (1.3-7.7) k/uL Monocytes # 1.1 H (0-1.0) k/uL Sodium (137-145) mmol/L Chloride (98-107) mmol/L Carbon Dioxide (22-30) mmol/L BUN (7-17) mg/dL Creatinine (0.52-1.04) mg/dL Glucose (74-99) mg/dL POC Glucose (mg/dL) 187 H (75-99) mg/dL Calcium (8.4-10.2) mg/dL AST (14-36) U/L Total Protein (6.3-8.2) g/dL Albumin (3.5-5.0) g/dL Urine Appearance (Clear) Urine Blood (Negative) Ur Leukocyte Esterase (Negative) Urine WBC (0-5) /hpf Urine WBC Clumps (None) /hpf Urine Bacteria (None) /hpf Urine Mucus (None) /hpf Crossmatch 05/23/18 05/23/18 05/23/18 Range/Units 05:02 05:10 11:50 WBC (3.8-10.6) k/uL RBC (3.80-5.40) m/uL Hgb (11.4-16.0) gm/dL Hct (34.0-46.0) % RDW (11.5-15.5) % Neutrophils # (1.3-7.7) k/uL Monocytes # (0-1.0) k/uL Sodium 136 L (137-145) mmol/L Chloride 112 H (98-107) mmol/L Carbon Dioxide 19 L (22-30) mmol/L BUN 80 H (7-17) mg/dL Creatinine 1.36 H (0.52-1.04) mg/dL Glucose 185 H (74-99) mg/dL POC Glucose (mg/dL) 214 H 169 H (75-99) mg/dL Calcium 7.8 L (8.4-10.2) mg/dL AST (14-36) U/L Total Protein (6.3-8.2) g/dL Albumin (3.5-5.0) g/dL Urine Appearance (Clear) Urine Blood (Negative) Ur Leukocyte Esterase (Negative) Urine WBC (0-5) /hpf Urine WBC Clumps (None) /hpf Urine Bacteria (None) /hpf Urine Mucus (None) /hpf Crossmatch Microbiology - Last 24 Hours (Table) 05/22/18 23:42 Urine Culture - Preliminary Urine,Catheterized 05/23/18 01:30 Stool Culture - Preliminary Stool Abdominal x-ray: report reviewed Assessment and Plan (1) Anemia Narrative/Plan: The patient had had cytopenias previously with chemotherapy, but these had recovered after completion of treatment. Therefore this anemia is new, and clinically appears to be due to GI blood loss. Agree with blood transfusion to stabilize hemoglobin. Iron studies will be ordered. Based on her clinical picture, the patient will need a GI workup. Gastroenterology is on the case. Current Visit: Yes Status: Acute Code(s): D64.9 - ANEMIA, UNSPECIFIED SNOMED Code(s): 045356668 (2) GI bleed Narrative/Plan: Based on her symptoms, this appears to be likely upper GI in origin. Her symptoms of diarrhea and abdominal pain, we have been due to cathartic effect of blood. Agree with close monitoring and transfusion. Mr. conley he is on the case. The patient will likely need endoscopic workup, at least upper GI. Current Visit: Yes Status: Acute Code(s): K92.2 - GASTROINTESTINAL HEMORRHAGE, UNSPECIFIED SNOMED Code(s): 49851450 (3) Carcinoma of ovary Narrative/Plan: Status post radical surgery and adjuvant chemotherapy. Most recent CT scans and labs in 03/19 showed no evidence of recurrence. The patient is currently on surveillance. Repeat CT of the abdomen and pelvis have been ordered this admission. Await those results. If those are negative for evidence of recurrence, then her scan scheduled for next month can be canceled Current Visit: No Status: Acute Code(s): C56.9 - MALIGNANT NEOPLASM OF UNSPECIFIED OVARY SNOMED Code(s): 886959484 Plan: Defer to the admitting service and other consultants for management of her other medical problems.
[2018-05-23 13:42] LABS: Reticulocyte % 4.6 % (0.5-2.0)
--- NOTE | 2018-05-23 13:50 | CT ---
EXAMINATION TYPE: CT abdomen pelvis wo con DATE OF EXAM: 05/23/2018 HISTORY: Generalized abdominal pain CT DLP: 952.8 mGycm. Automated Exposure Control for Dose Reduction was Utilized. TECHNIQUE: CT scan of the abdomen and pelvis is performed with oral but without IV contrast. COMPARISON: CT from March 22, 2018 FINDINGS: Within the limitations of a non-contrast study, the following observations are made. LUNG BASES: There is persistent posterior bibasilar linear scarring and/or atelectasis. Prominent court cification at level of mitral valve is redemonstrated. LIVER/GB: Cholecystectomy clips are redemonstrated. PANCREAS: No significant abnormality is seen. SPLEEN: No significant abnormality is seen. ADRENALS: Stable 1.4 x 0.8 cm in left adrenal nodular mass axial image 20. 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 Si ze may be large enough to warrant excision to prevent spontaneous hemorrhage. KIDNEYS: Aguirre catheter is seen within decompressed bladder which is suboptimally evaluated. BOWEL: Oral contrast reaches level of mid transverse colon. Evaluation of distal bowel is thus subopt imal. No suspicious small or large bowel dilatation is seen. Mild to moderate wall thickening in the sigmoid colon and rectum is present. Cannot exclude colitis at this level. Some diverticula in the si gmoid colon are identified. GENITAL ORGANS: The uterus is surgically absent or markedly atrophic. LYMPH NODES: No greater than 1cm abdominal or pelvic lymph nodes are appreciated. OSSEOUS STRUCTURES: Osseous structures are demineralized. There is moderate to advanced compression f racture at T12 level redemonstrated. There is slight grade 1 anterolisthesis of L4 on L5 redemonstrat ed. There is multilevel facet arthropathy in the mid to lower lumbar spine. OTHER: There is new right femoral central venous catheter noted on current study. IMPRESSION: Cannot exclude mild new acute distal colitis versus product of poor distention otherwise no new or suspicious acute findings identified versus most recent study on this noncontrast CT .
[2018-05-23 14:34] LABS: Basophils % (A) 0 %; Eosinophils # (A) 0.1 k/uL (0-0.7); Eosinophils % (A) 1 %; HCT 22.4 % (34.0-46.0); HGB 7.1 gm/dL (11.4-16.0); Lymphocytes # (A) 0.9 k/uL (1.0-4.8); Lymphocytes % (A) 9 %; MCH 28.5 pg (25.0-35.0); MCHC 31.6 g/dL (31.0-37.0); MCV 90.3 fL (80.0-100.0); Mean Platelet Volume 7.5; Monocytes # (A) 0.7 k/uL (0-1.0); Monocytes % (A) 7 %; Neutrophils # (A) 7.6 k/uL (1.3-7.7); Neutrophils % (A) 81 %; Platelet Count 210 k/uL (150-450); RBC 2.48 m/uL (3.80-5.40); RDW 15.5 % (11.5-15.5); WBC 9.4 k/uL (3.8-10.6)
[2018-05-23 17:38] LABS: Glucose,Whole Blood 155 mg/dL (75-99)
[2018-05-23 23:06] LABS: Basophils % (A) 0 %; Eosinophils # (A) 0.1 k/uL (0-0.7); Eosinophils % (A) 2 %; HGB 8.1 gm/dL (11.4-16.0); Lymphocytes % (A) 11 %; MCH 29.9 pg (25.0-35.0); MCHC 32.3 g/dL (31.0-37.0); MCV 92.6 fL (80.0-100.0); Mean Platelet Volume 8.9; Monocytes # (A) 0.9 k/uL (0-1.0); Monocytes % (A) 10 %; Neutrophils % (A) 76 %; Platelet Count 206 k/uL (150-450); RDW 15.7 % (11.5-15.5); WBC 9.2 k/uL (3.8-10.6)
[2018-05-23 23:31] LABS: Ovalocytes Present
[2018-05-23 23:37] LABS: Glucose,Whole Blood 162 mg/dL (75-99)
--- NOTE | 2018-05-24 00:18 | PN ---
PROGRESS NOTE DATE OF SERVICE: 05/23/2018 This 73-year-old woman is admitted with diarrhea and GI bleed. The patient last night had an episode of hypotension and the patient also was transferred to ICU. Hemoglobin 6.8 after 2 units transfusion and after IV fluids the patient is improving at this time. The patient creatinine 1.36 at this time. The patient also had features of UTI as well. The patient is started on IV Rocephin at this time. Patient closely monitored in ICU. The current hemoglobin 7.1. PAST MEDICAL HISTORY: Reviewed. REVIEW OF SYSTEMS: CARDIOVASCULAR: No angina or palpitations. RESPIRATORY: As mentioned. GI: As mentioned earlier. no dysuria. CURRENT MEDICATIONS ARE: Reviewed and include: 1. Tylenol 650 q.6h p.r.n. 2. [place] 5 mg. 3. Lioresal. 4. Rocephin 1 g. 5. Cymbalta 60 mg. 6. Prozac. 7. Flonase. 8. Heparin subcu b.i.d. 9. Dilaudid. 10.NovoLog mix. 11.Synthroid. 12.Glucophage. 13.Lopressor. 14.Zofran Oxy-IR. 15.Protonix. 16.Restoril. PHYSICAL EXAM: Patient is alert, oriented x3. Pulse is noted vitals noted neck no jvd. cvs s1 s2 normal rs few rhonchi abdo obese nontender no masses leg no edema ns no focal deficit. Abdomen and pelvis CT scan showed distal colitis. ASSESSMENT: 1. Diarrhea, nausea, vomiting, possible acute gastroenteritis. 2. Acute gastrointestinal bleed with blood-loss anemia and hypotension, status post transfusion. 3. Increased WBC. 4. Hyponatremia. 5. Increased creatinine with possible acute renal failure possibly prerenal, acute renal failure. 6. History of asthma. 7. Coronary artery disease. 8. Diabetes mellitus type 2. 9. Hypertension. 10.Hyperlipidemia. 11.History of degenerative joint disease. 12.Hypothyroidism. 13.History of right-sided ovarian cancer status post chemotherapy. 14.History of cholecystectomy. 15.History of bipolar. 16.Remote history of nicotine dependence. 17.Obesity with body mass index 42.3. RECOMMENDATIONS AND DISCUSSION: Recommend to continue current medications, continue to monitor. Symptomatic treatment. Otherwise, at this time, I recommend to monitor the hemoglobin closely. Transfuse if hemoglobin less than 7.1. Otherwise, closely monitor in the ICU. Guarded prognosis. Creatinine 1.36. Continue to monitor. See orders for details. Further recommendations to follow. Prognosis guarded. MMODL / IJN: [id number] / MTDD
[2018-05-24] MEDS: HYDROmorphone 1 MG/ML 1 ML SYRINGE IVP PRN (01:14)
[2018-05-24 05:33] LABS: Calcium 7.8 mg/dL (8.4-10.2); Phosphorus 2.6 mg/dL (2.5-4.5); Potassium 4.1 mmol/L (3.5-5.1)
[2018-05-24 05:36] LABS: Basophils % (A) 0 %; Eosinophils # (A) 0.1 k/uL (0-0.7); Eosinophils % (A) 2 %; HGB 7.6 gm/dL (11.4-16.0); Hypochromasia Slight; Lymphocytes # (A) 1.1 k/uL (1.0-4.8); Lymphocytes % (A) 15 %; MCH 31.2 pg (25.0-35.0); MCHC 33.3 g/dL (31.0-37.0); MCV 93.7 fL (80.0-100.0); Monocytes # (A) 0.6 k/uL (0-1.0); Monocytes % (A) 8 %; Neutrophils # (A) 4.9 k/uL (1.3-7.7); Neutrophils % (A) 72 %; Platelet Count 192 k/uL (150-450); RBC 2.45 m/uL (3.80-5.40); WBC 6.8 k/uL (3.8-10.6)
[2018-05-24 06:43] LABS: Glucose,Whole Blood 171 mg/dL (75-99)
[2018-05-24] MEDS ORDERED: IV FLUID CONTINUATION 1,000 ML IV ONE (07:30)
[2018-05-24] MEDS ORDERED: PROPOFOL 10 MG/ML 20 ML VIAL IV ONE (07:30)
--- NOTE | 2018-05-24 08:20 | P.CONS ---
History of Present Illness - Reason for Consult Consult date: 05/23/18 Melena and anemia. - History of Present Illness The patient is a 73-year-old female who was admitted to the ICU with history of abdominal pain, nausea and diarrhea that was described as black stools. She was also experiencing decreased appetite. She presented to the hospital and was found to have a hemoglobin in the 7 range that dropped to 6.4. She was admitted to the intensive care unit and received a unit of blood. Her stools were noted to be black in the hospital. The patient is well known to me and I attempted a colonoscopy in January of this year but I was not able to complete this exam because of significant diverticular disease. Subsequently, she had a virtual colonoscopy at [facility] which I believe did not show any additional pathology. I do not have that report in front of me at this time. The patient has received high-dose steroids recently for possible arteritis. In addition, she she has history of ovarian cancer for which she underwent surgery and has received chemotherapy. Review of Systems Constitutional: Denies fever, chills or unintentional weight loss Neurologic: No history of headaches, double vision or sensory or motor changes Cardiopulmonary: No chest pains, shortness of breath or palpitations Gastrointestinal: See present illness above Genitourinary: No hematuria, dysuria or frequency Skin: No rashes Endocrine: No polyuria or polydipsia Musculoskeletal: No joint complaints or swelling Hematologic: No bleeding tendency Psychiatric: No history of anxiety or depression Past Medical History Past Medical History: Asthma, Coronary Artery Disease (CAD), Cancer, Diabetes Mellitus, Hyperlipidemia, Hypertension, Osteoarthritis (OA), Thyroid Disorder Additional Past Medical History / Comment(s): R sided ovarian cancer- tx with chemo finished October 2017, heart murmer, sleeps sitting up- one doctor dx sleep apnea but another said no, no cpap used, constipation, hx anemia- recieved iron infusion, urinary incontinence, past frequent UTI's, 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 ), calcium clot lt eye, non functioning neurostimlator removed. Past Anesthesia/Blood Transfusion Reactions: No Reported Reaction Additional Past Anesthesia/Blood Transfusion Reaction / Comm: Unsure of family history, patient was adopted. Past Psychological History: Bipolar Additional Psychological History / Comment(s): pt lives alone in apt.has a cat named mannie. uses cane/walker at times. no home care services. Smoking Status: Former smoker Past Alcohol Use History: Occasional Additional Past Alcohol Use History / Comment(s): Pt started smoking in 1959, quit for good in 1997. 1-2 PPD Past Drug Use History: None Reported - Past Family History Father History Unknown: Yes Family Medical History: Unable to Obtain Additional Family Medical History / Comment(s): Pt is adopted and does not know parents medical history. Medications and Allergies Home Medications Medication Instructions Recorded Confirmed Type Baclofen 10 mg PO QID PRN 01/06/16 05/22/18 History DULoxetine HCL [Cymbalta] 60 mg PO DAILY 01/06/16 05/22/18 History oxyCODONE HCL 10 mg PO QID PRN 01/06/16 05/22/18 History Insulin NPH Hum/Reg Insulin Hm 14 unit SQ AC-BRKFST 03/17/16 05/22/18 History [NovoLIN 70-30 100 UNIT/ML VIAL] Insulin NPH Hum/Reg Insulin Hm 24 unit SQ AC-SUPPER 03/17/16 05/22/18 History [NovoLIN 70-30 100 UNIT/ML VIAL] Levothyroxine Sodium [Synthroid] 100 mcg PO DAILY 07/25/17 05/22/18 History amLODIPine [Norvasc] 5 mg PO DAILY 07/25/17 05/22/18 History Aspirin [Adult Low Dose Aspirin EC] 81 mg PO DAILY 02/19/18 05/22/18 History Docusate Sodium [Dok] 100 mg PO BID 02/19/18 05/22/18 History Lisinopril 40 mg PO DAILY 02/19/18 05/22/18 History Metoprolol Tartrate 25 mg PO BID 02/19/18 05/22/18 History Pioglitazone HCl [Actos] 30 mg PO QAM 02/19/18 05/22/18 History FLUoxetine HCL [PROzac] 10 mg PO DAILY 05/22/18 05/22/18 History Fluticasone Nasal [place] [Flonase 2 spr EA NOSTRIL DAILY 05/22/18 05/22/18 History Nasal [place]] Hydrochlorothiazide 12.5 mg PO DAILY 05/22/18 05/22/18 History metFORMIN HCL [Glucophage] 500 mg PO BID 05/22/18 05/22/18 History Allergies Allergy/AdvReac Type Severity Reaction Status Date / Time adhesive Allergy blisters Verified 05/22/18 10:50 amoxicillin Allergy Rash/Hives Verified 05/22/18 10:50 ciprofloxacin [From Cipro] Allergy Dyspnea Verified 05/22/18 10:50 ciprofloxacin HCl Allergy Dyspnea Verified 05/22/18 10:50 [From Cipro] Physical Exam Vitals: Vital Signs Temp Pulse Pulse Resp BP BP Pulse Ox 05/23/18 09:19 98.5 F 101 H 17 98/23 96 05/23/18 09:00 111 H 14 99/33 96 05/23/18 08:49 98.2 F 102 H 16 99/33 97 05/23/18 08:39 98.1 F 104 H 20 88/33 95 05/23/18 08:30 104 H 14 101/32 05/23/18 08:00 105 H 11 L 93/34 96 05/23/18 07:30 102 H 12 85/35 05/23/18 07:00 101 H 8 L 84/32 93 L 05/23/18 06:30 103 H 16 96/28 05/23/18 06:00 104 H 14 95/43 93 L 05/23/18 05:30 101 H 5 L 91/44 94 L 05/23/18 05:00 105 H 10 L 102/37 97 05/23/18 04:30 101 H 14 100/31 94 L 05/23/18 04:00 103 H 14 89/34 90 L 05/23/18 03:30 109 H 23 99/32 92 L 05/23/18 03:00 113 H 10 L 113/70 95 05/23/18 02:30 112 H 12 103/31 98 05/23/18 02:00 115 H 9 L 114/32 95 05/23/18 01:30 107 H 13 125/33 05/23/18 01:00 107 H 14 121/36 98 05/23/18 00:41 113 H 19 05/22/18 22:46 93/32 05/22/18 22:08 100 96/61 05/22/18 20:10 97.6 F 101 H 18 121/63 100 05/22/18 19:30 109 H 15 123/49 100 05/22/18 19:20 98.8 F 100 16 123/49 100 05/22/18 19:00 96 20 123/68 100 05/22/18 18:30 95 19 114/39 100 05/22/18 18:20 97.0 F L 100 16 114/39 100 05/22/18 18:00 90 13 117/43 05/22/18 17:50 98.2 F 89 16 117/43 93 L 05/22/18 17:40 98.6 F 90 20 95/38 05/22/18 17:30 89 11 L 112/45 05/22/18 17:00 90 10 L 94/58 05/22/18 16:50 100 16 94/58 100 05/22/18 16:30 98 18 102/85 100 05/22/18 16:00 90 3 L 113/45 100 05/22/18 15:30 22 120/49 100 05/22/18 15:00 89 17 60/42 100 05/22/18 14:39 86 16 78/22 100 05/22/18 14:30 93 14 109/69 100 05/22/18 14:00 87 14 121/47 100 05/22/18 13:30 88 16 98/50 05/22/18 13:00 87 17 86/57 05/22/18 12:30 90 20 126/28 05/22/18 12:00 85 18 89/47 05/22/18 11:30 77 16 110/42 100 05/22/18 11:00 86 16 86/24 99 05/22/18 10:13 97.4 F L 91 20 87/48 99 Intake and Output 05/22/18 05/23/18 05/23/18 22:59 06:59 14:59 Intake Total 310 1600 300 Output Total 1090 600 Balance 310 510 -300 Intake: IV 1500 300 Sodium Chloride 0.9% 1, 500 300 000 ml @ 100 mls/hr IV . Q10H [facility] Rx#:[id number] Sodium Chloride 0.9% 1, 1000 000 ml @ 999 mls/hr IV . Q1H1M [facility] Rx#:[id number] Oral 100 Blood Product 310 0 Rc As-1 Unit 0 [id number] Rc As-1 Unit 310 [id number] Output: Urine 1090 600 Other: Voiding Method Incontinent Indwelling Catheter # Voids 2 General: Appeared stated age, very pleasant in no acute distress Head and neck: Normocephalic and atraumatic, conjunctivae pink and sclerae not icteric, mucous membranes moist and pink. No masses in the neck or clavicular shifts Lungs: Clear to auscultation with no dullness to percussion Heart: Regular, no abnormal sounds, murmurs, gallops or friction Abdomen: Soft, no masses or organomegalies. No tenderness, bowel sounds present Extremities: No clubbing, cyanosis or edema Neurologic: Alert and oriented 3. Cranial nerves grossly intact. No gross sensory or motor abnormalities Results CBC & Chem 7: 05/24/18 04:55 05/24/18 04:55 Labs: Abnormal Lab Results - Last 24 Hours (Table) 05/22/18 05/22/18 05/22/18 Range/Units 11:10 12:23 13:20 WBC 11.7 H (3.8-10.6) k/uL RBC 2.56 L (3.80-5.40) m/uL Hgb 7.4 L (11.4-16.0) gm/dL Hct 22.7 L (34.0-46.0) % RDW 16.5 H (11.5-15.5) % Neutrophils # 9.1 H (1.3-7.7) k/uL Monocytes # (0-1.0) k/uL Sodium (137-145) mmol/L Chloride (98-107) mmol/L Carbon Dioxide (22-30) mmol/L BUN (7-17) mg/dL Creatinine (0.52-1.04) mg/dL Glucose (74-99) mg/dL POC Glucose (mg/dL) (75-99) mg/dL Calcium (8.4-10.2) mg/dL AST (14-36) U/L Total Protein (6.3-8.2) g/dL Albumin (3.5-5.0) g/dL Urine Appearance (Clear) Urine Blood (Negative) Ur Leukocyte Esterase (Negative) Urine WBC (0-5) /hpf Urine WBC Clumps (None) /hpf Urine Bacteria (None) /hpf Urine Mucus (None) /hpf Stool Occult Blood Positive H (Negative) Crossmatch See Detail 05/22/18 05/22/18 05/22/18 Range/Units 14:05 21:11 21:39 WBC 12.2 H (3.8-10.6) k/uL RBC 2.51 L (3.80-5.40) m/uL Hgb 7.3 L (11.4-16.0) gm/dL Hct 23.1 L (34.0-46.0) % RDW 15.9 H (11.5-15.5) % Neutrophils # 9.3 H (1.3-7.7) k/uL Monocytes # (0-1.0) k/uL Sodium 133 L (137-145) mmol/L Chloride (98-107) mmol/L Carbon Dioxide 18 L (22-30) mmol/L BUN 106 H* (7-17) mg/dL Creatinine 1.62 H (0.52-1.04) mg/dL Glucose 190 H (74-99) mg/dL POC Glucose (mg/dL) 215 H (75-99) mg/dL Calcium (8.4-10.2) mg/dL AST 13 L (14-36) U/L Total Protein 5.1 L (6.3-8.2) g/dL Albumin 2.7 L (3.5-5.0) g/dL Urine Appearance (Clear) Urine Blood (Negative) Ur Leukocyte Esterase (Negative) Urine WBC (0-5) /hpf Urine WBC Clumps (None) /hpf Urine Bacteria (None) /hpf Urine Mucus (None) /hpf Stool Occult Blood (Negative) Crossmatch 05/22/18 05/23/18 05/23/18 Range/Units 23:42 00:45 01:50 WBC 11.8 H (3.8-10.6) k/uL RBC 2.29 L (3.80-5.40) m/uL Hgb 6.8 L* (11.4-16.0) gm/dL Hct 21.0 L (34.0-46.0) % RDW 15.9 H (11.5-15.5) % Neutrophils # 8.9 H (1.3-7.7) k/uL Monocytes # 1.1 H (0-1.0) k/uL Sodium (137-145) mmol/L Chloride (98-107) mmol/L Carbon Dioxide (22-30) mmol/L BUN (7-17) mg/dL Creatinine (0.52-1.04) mg/dL Glucose (74-99) mg/dL POC Glucose (mg/dL) 187 H (75-99) mg/dL Calcium (8.4-10.2) mg/dL AST (14-36) U/L Total Protein (6.3-8.2) g/dL Albumin (3.5-5.0) g/dL Urine Appearance Cloudy H (Clear) Urine Blood Small H (Negative) Ur Leukocyte Esterase Large H (Negative) Urine WBC 90 H (0-5) /hpf Urine WBC Clumps Many H (None) /hpf Urine Bacteria Many H (None) /hpf Urine Mucus Rare H (None) /hpf Stool Occult Blood (Negative) Crossmatch 05/23/18 05/23/18 05/23/18 Range/Units 05:02 05:02 05:10 WBC (3.8-10.6) k/uL RBC 2.09 L (3.80-5.40) m/uL Hgb 6.4 L* (11.4-16.0) gm/dL Hct 19.3 L* (34.0-46.0) % RDW 16.1 H (11.5-15.5) % Neutrophils # 8.1 H (1.3-7.7) k/uL Monocytes # (0-1.0) k/uL Sodium 136 L (137-145) mmol/L Chloride 112 H (98-107) mmol/L Carbon Dioxide 19 L (22-30) mmol/L BUN 80 H (7-17) mg/dL Creatinine 1.36 H (0.52-1.04) mg/dL Glucose 185 H (74-99) mg/dL POC Glucose (mg/dL) 214 H (75-99) mg/dL Calcium 7.8 L (8.4-10.2) mg/dL AST (14-36) U/L Total Protein (6.3-8.2) g/dL Albumin (3.5-5.0) g/dL Urine Appearance (Clear) Urine Blood (Negative) Ur Leukocyte Esterase (Negative) Urine WBC (0-5) /hpf Urine WBC Clumps (None) /hpf Urine Bacteria (None) /hpf Urine Mucus (None) /hpf Stool Occult Blood (Negative) Crossmatch Assessment and Plan Assessment: GI bleeding and anemia likely related to an upper GI source possibly peptic ulcer disease. Other etiology to be kept in mind. Plan: I would proceed with an upper endoscopy tomorrow morning. Further plans based on the findings at that time.
--- NOTE | 2018-05-24 08:31 | P.PCN ---
Date of Procedure: 05/24/18 Procedure(s) Performed: Procedure: Esophagogastroduodenoscopy and biopsy. Preoperative diagnosis: GI bleeding and anemia. Postoperative diagnosis: 1. Small sliding hiatal hernia with no obvious esophagitis or complicated reflux disease. 2. Antral gastritis with multiple erosions and small ulcerations with no active bleeding at the time of this exam. 3. Biopsies obtained from the antrum. Preparation and sedation: Was provided by anesthesia. Brief clinical history: The patient is a 73-year-old female who was admitted to the ICU with history of abdominal pain, nausea and diarrhea that was described as black stools. She was also experiencing decreased appetite. She presented to the hospital and was found to have a hemoglobin in the 7 range that dropped to 6.4. She was admitted to the intensive care unit and received a unit of blood. Her stools were noted to be black in the hospital. The patient is well known to me and I attempted a colonoscopy in January of this year but I was not able to complete this exam because of significant diverticular disease. Subsequently, she had a virtual colonoscopy at [facility] which I believe did not show any additional pathology. The patient has received high- dose steroids recently for possible arteritis. In addition, she she has history of ovarian cancer for which she underwent surgery and has received chemotherapy. Other details are summarized in the history and physical and dictated consultations and progress notes. This evaluation is to assess for a source of upper GI bleeding and anemia. Procedure: With the patient on her left lateral decubitus position and after informed consent and adequate sedation, I passed the Olympus-GIF 160 video upper endoscope through the cricopharyngeus down the esophagus. GE junction was around 41 cm from the incisors and there was a small sliding hiatal hernia but no obvious esophagitis or complicated reflux disease. The endoscope was then advanced into the stomach which was insufflated with air and inspected in detail including the retroflex view in the cardia. There was mottling erythema and areas of friability in the antrum and there were multiple erosions and short linear ulcerations but there was no active bleeding or stigmata of recent bleeding. No large ulcer craters. Pyloric channel did not show any ulcers. Duodenal bulb, post bulbar area and descending duodenum appeared within normal limits. I obtained a picture in the antrum and couple biopsies from the antrum then the endoscope was withdrawn. The patient tolerated the procedure well. The patient tolerated the procedure well. Plan: The patient was reassured. Will allow liquid diet then advance to soft diet as tolerated. Will continue PPI. Further plans based on her course and biopsy results.
[2018-05-24] MEDS: INSULIN ASPART 100 UNIT/ML 1 ML 10 ML VIAL SQ SCH ×5 (10:07→21:30)
[2018-05-24] MEDS: INSULN ASP PRT/INSULIN ASPART 100 UNIT/ML 10 ML VIAL SQ SCH ×2 (10:07→18:21)
[2018-05-24] MEDS: METOPROLOL TARTRATE 25 MG TAB PO SCH ×2 (10:18→21:29)
[2018-05-24] MEDS: LEVOTHYROXINE 100 MCG TAB PO SCH (10:18)
[2018-05-24] MEDS: DULoxetine HCL 60 MG CAPSULE.DR PO SCH (10:18)
[2018-05-24] MEDS: metFORMIN 500 MG TAB PO SCH ×2 (10:18→21:29)
[2018-05-24] MEDS: HEPARIN SODIUM,PORCINE 5,000 UNIT/ML 1 ML VIAL SQ SCH ×2 (10:19→21:29)
[2018-05-24] MEDS: PIOGLITAZONE 30 MG TAB PO SCH (10:19)
[2018-05-24] MEDS: FLUoxetine HCL 10 MG CAP PO SCH (10:19)
[2018-05-24] MEDS: PANTOPRAZOLE 40 MG/10 ML VIAL IV SCH ×2 (10:19→21:29)
[2018-05-24] MEDS: SODIUM CHLORIDE 0.9% 1,000 ML IV SCH ×2 (10:26→17:21)
[2018-05-24 10:28] LABS: Hemoglobin A1C 6.5 % (4.0-6.0)
[2018-05-24 12:27] LABS: Glucose,Whole Blood 151 mg/dL (75-99)
[2018-05-24 13:01] LABS: Iron Saturation 23.7 (12.00-45.00)
[2018-05-24] MEDS: FLUTICASONE 50MCG/SPRAY NASAL 16GM EA NOSTRIL SCH (13:23)
--- NOTE | 2018-05-24 14:08 | P.PN ---
Subjective Progress Note Date: 05/24/18 Principal diagnosis: Acute upper GI bleeding , acute gastroenteritis This is a 73-year-old female with history of mild intermittent asthma, coronary artery disease, hypertension, hypothyroidism, type 2 diabetes, patient is primarily a patient of Dr. Sanders. She was seen yesterday in the ER with mostly 2 days history of nausea vomiting, diarrhea, and some vague abdominal cramps. Patient has also noted some melanotic stools. Hemoglobin on admission was 7.3, patient was also noted to have abnormal urinalysis with bacteriuria and pyuria. Patient was initially admitted to regular medical floor, however at night she had further episodes of GI bleeding, drop in her hemoglobin, and low blood pressure. Patient was transferred to the ICU, and so far the patient received a total of 2 units of packed RBCs, and there is one pending. Her last hemoglobin was 6.8 after 2 units of packed RBCs. Considering the patient was transferred to the ICU, I was asked to see her on consultation. Patient did receive fluids, and received a blood transfusion as noted above. During my evaluation, patient felt generally weak, denies any headache, no blurred vision , no dizziness, she has no nausea vomiting or abdominal pain at the time of my evaluation, she had no chest pain, no hematemesis. But she did note black stools earlier today. Her electrolytes were normal, however her BUN was initially 106 and now is down to 80 her creatinine was 1.62 and is now 1.36. Again her urinalysis was abnormal consistent with urinary tract infection. Patient however has no symptoms of UTI, her symptoms are mostly symptoms of gastroenteritis. Was reevaluated today on 05/24/2018, patient is feeling better, her hemoglobin is holding, and the report on her EGD was noted. No active bleeding was noted. Apparently the patient had erosive gastritis. Antral gastritis with multiple erosions were noted and small ulcerations but no active bleeding was noted at the time of the EGD. Biopsies from the antrum are pending. Hemoglobin this morning is 7.6. WBC count is 6.8. Patient is asymptomatic, has not had a bowel movement since yesterday. And no emesis. Objective - Vital Signs Vital signs: Vital Signs Temp 98.8 F 05/24/18 10:00 Pulse 97 05/24/18 10:00 Resp 33 H 05/24/18 10:00 BP 132/58 05/24/18 10:00 Pulse Ox 93 L 05/24/18 10:00 Intake & Output 05/23/18 05/24/18 05/24/18 18:59 06:59 18:59 Intake Total 2930 1200 600 Output Total 208 670 450 Balance 845 530 150 Weight 108.409 kg 114.2 kg Intake: IV 1040 1200 600 Sodium Chloride 0.9% 1, 1040 1200 400 000 ml @ 100 mls/hr IV . Q10H [facility] Rx#:[id number] Oral 960 Blood Product 930 Rc As-1 Unit 310 [id number] Rc Pheresis As3 Unit 310 [id number] Output: Urine 2084 670 450 Other: Voiding Method Indwelling Catheter Indwelling Catheter - Exam Physical Exam: Revealed a 73-year-old female in no distress. Head: Atraumatic, normocephalic. HEENT:[Neck is supple.] [No neck masses.] [No thyromegaly.] [No JVD.] Chest: [Clear throughout, no crackles, no rhonchi, no wheezes.] Cardiac Exam: [Normal S1 and S2, no S3 gallop, no murmur.] Abdomen: [Soft, nontender, no megaly, no rebound, no guarding, normal bowel sounds.] Extremities: [No clubbing, no edema, no cyanosis.] Neurological Exam: [No focal neurologic deficit.] Skin: No rashes. Psychiatric: Normal mood, affect and mental status examination. - Labs CBC & Chem 7: 05/24/18 04:55 05/24/18 04:55 Labs: Abnormal Lab Results - Last 24 Hours (Table) 05/22/18 05/22/18 05/22/18 Range/Units 01:30 13:20 21:39 RBC (3.80-5.40) m/uL Hgb (11.4-16.0) gm/dL Hct (34.0-46.0) % RDW (11.5-15.5) % Lymphocytes # (1.0-4.8) k/uL Chloride (98-107) mmol/L Carbon Dioxide (22-30) mmol/L BUN (7-17) mg/dL Glucose (74-99) mg/dL POC Glucose (mg/dL) (75-99) mg/dL Hemoglobin A1c 6.5 H (4.0-6.0) % Calcium (8.4-10.2) mg/dL Stool Lactoferrin POSITIVE H (NEGATIVE) Crossmatch See Detail 05/23/18 05/23/18 05/23/18 Range/Units 14:25 17:35 20:53 RBC 2.48 L 2.70 L (3.80-5.40) m/uL Hgb 7.1 L 8.1 L (11.4-16.0) gm/dL Hct 22.4 L 25.0 L (34.0-46.0) % RDW 15.7 H (11.5-15.5) % Lymphocytes # 0.9 L (1.0-4.8) k/uL Chloride (98-107) mmol/L Carbon Dioxide (22-30) mmol/L BUN (7-17) mg/dL Glucose (74-99) mg/dL POC Glucose (mg/dL) 155 H (75-99) mg/dL Hemoglobin A1c (4.0-6.0) % Calcium (8.4-10.2) mg/dL Stool Lactoferrin (NEGATIVE) Crossmatch 05/23/18 05/24/18 05/24/18 Range/Units 23:34 04:55 04:55 RBC 2.45 L (3.80-5.40) m/uL Hgb 7.6 L (11.4-16.0) gm/dL Hct 23.0 L (34.0-46.0) % RDW 16.0 H (11.5-15.5) % Lymphocytes # (1.0-4.8) k/uL Chloride 116 H (98-107) mmol/L Carbon Dioxide 20 L (22-30) mmol/L BUN 30 H (7-17) mg/dL Glucose 140 H (74-99) mg/dL POC Glucose (mg/dL) 162 H (75-99) mg/dL Hemoglobin A1c (4.0-6.0) % Calcium 7.8 L (8.4-10.2) mg/dL Stool Lactoferrin (NEGATIVE) Crossmatch 05/24/18 05/24/18 Range/Units 06:30 12:09 RBC (3.80-5.40) m/uL Hgb (11.4-16.0) gm/dL Hct (34.0-46.0) % RDW (11.5-15.5) % Lymphocytes # (1.0-4.8) k/uL Chloride (98-107) mmol/L Carbon Dioxide (22-30) mmol/L BUN (7-17) mg/dL Glucose (74-99) mg/dL POC Glucose (mg/dL) 171 H 151 H (75-99) mg/dL Hemoglobin A1c (4.0-6.0) % Calcium (8.4-10.2) mg/dL Stool Lactoferrin (NEGATIVE) Crossmatch Microbiology - Last 24 Hours (Table) 05/22/18 21:39 Blood Culture - Preliminary Blood No Growth after 24 hours 05/22/18 23:42 Urine Culture - Preliminary Urine,Catheterized 05/23/18 01:30 Stool Culture - Preliminary Stool Assessment and Plan Assessment: Impression: Acute upper GI bleeding secondary to erosive gastritis as noted on EGD done today by Dr. Villegas. No active bleeding noted on the EGD. Anemia secondary to acute blood loss. Acute hypovolemia and hypotension, strongly doubt sepsis and/or septic shock. Acute kidney injury however I believe it is mostly prerenal azotemia. Acute urinary tract infection is a strongly suspected based on the urinalysis. Urine cultures are pending. Place patient empirically on Rocephin for now. History of multiple comorbidities including mild intermittent asthma presently inactive, coronary artery disease, type 2 diabetes, hypertension, hyperlipidemia , degenerative joint disease, hypothyroidism, history of ovarian cancer status post chemotherapy over a year ago, history of bipolar disorder, and remote history of smoking. Obesity with body mass index of 42.3. Recommendation: Agree with the present treatment plan continue Protonix, consider transferring the patient out of the ICU today to a regular medical floor. Time with Patient: Less than 30
[2018-05-24 16:50] LABS: Glucose,Whole Blood 161 mg/dL (75-99)
--- NOTE | 2018-05-24 20:49 | PN ---
PROGRESS NOTE DATE OF SERVICE: 05/24/2018 This 73-year-old woman who was admitted after diarrhea, nausea and acute GI bleed had hypotension, also. Patient on multiple transfusions. Hemoglobin is 7.6 today. Gastroenterology performed upper endoscopy that showed small sliding hiatal hernia with no obvious esophagitis; however, antral gastritis, multiple erosions and a small ulceration were also noted. Antral ulcer biopsies were taken. The patient is being closely monitored. Past medical history reviewed. REVIEW OF SYSTEMS: CARDIOVASCULAR SYSTEM: No angina, palpitations. RESPIRATORY SYSTEM: As mentioned earlier. GI: As mentioned earlier. : No dysuria or retention. NERVOUS SYSTEM: No numbness, weakness.. CURRENT MEDICATIONS: Reviewed. They include: 1. Tylenol 650 q.6 p.r.n. 2. [place] 5 mg q.6 p.r.n. 3. Xanax 0.25 t.i.d. 4. Lioresal 10 mg q.i.d. p.r.n. 5. Rocephin 1 gram IV daily. 6. Cymbalta 60 mg daily. 7. Prozac 10 mg daily. 8. Flonase 2 sprays daily. 9. Heparin 5000 units subcutaneously b.i.d. 10.Dilaudid 0.5 q.6 p.r.n. 11.NovoLog Mix 70/30, 24 and 14 units. 12.Synthroid. 13.Glucophage 500 mg p.o. b.i.d. 14.Lopressor 25 mg b.i.d. 15.Narcan 0.2 p.r.n. 16.Zofran. 17.OxyIR. 18.Protonix 40 mg IV b.i.d. 19.Actos 30 mg each morning. 20.Restoril 15 mg p.o. at bedtime. PHYSICAL EXAMINATION: Patient is alert, oriented x3. Pulse 79, blood pressure 108/43, respiration 23, temperature normal, pulse ox 96% on room air. HEENT: Conjunctivae normal. Oral mucosa moist. NECK: No jugular venous distention. No carotid bruit. No lymph node enlargement. CARDIOVASCULAR SYSTEM: S1, S2 muffled. RESPIRATORY SYSTEM: Breath sounds diminished at the bases. A few scattered rhonchi and crackles. ABDOMEN: Soft, non-tender. No mass palpable. LEGS: No edema. No swelling. NERVOUS SYSTEM: Higher functions as mentioned earlier. Moves all 4 limbs. No focal motor or sensory deficit. LYMPHATICS: No lymph node palpable in neck, axillae or groin. SKIN: No ulcer, rash, bleeding. LABS: WBC 6.8, hemoglobin 7.6. CO2 is 30. Accu-Cheks noted. ASSESSMENT: 1. Acute upper gastrointestinal bleeding, status post esophagogastroduodenoscopy showing antral gastritis and multiple erosions, antral ulcers with peptic ulcer disease. 2. Possible acute gastroenteritis. 3. Acute blood loss anemia, status post transfusion. 4. Increased white count. 5. Hyponatremia. 6. Increased creatinine with possible acute renal failure, possibly prerenal acute tubular necrosis. 7. History of asthma. 8. History of coronary artery disease. 9. Diabetes mellitus, type 2. 10.Hypertension. 11.Hyperlipidemia. 12.History of degenerative joint disease. 13.History of hypothyroidism. 14.History of right-sided ovarian cancer, status post chemotherapy. 15.History of cholecystectomy. 16.History of bipolar. 17.Remote history of nicotine dependence. 18.Obesity with body mass index of 42.3. RECOMMENDATIONS AND DISCUSSION: I recommend to continue current medications, continue with the monitoring, symptomatic treatment. Otherwise at this time we will monitor the patient closely. Proton pump inhibitors. Monitor hemoglobin closely. Continue the rest of the medications. Avoid NSAIDs, antiplatelet agents currently. Guarded prognosis because of multiple complex medical issues. Further recommendations to follow. MMPACHECOL / LIZBETH: [id number] /
[2018-05-24 20:53] LABS: Glucose,Whole Blood 156 mg/dL (75-99)
[2018-05-25 01:53] LABS: Glucose,Whole Blood 155 mg/dL (75-99)
[2018-05-25] MEDS: SODIUM CHLORIDE 0.9% 1,000 ML IV SCH ×3 (02:05→21:32)
[2018-05-25] MEDS: BACLOFEN 10 MG TAB PO PRN ×2 (02:05→13:00)
[2018-05-25] MEDS: LEVOTHYROXINE 100 MCG TAB PO SCH (05:33)
[2018-05-25 07:13] LABS: Glucose,Whole Blood 155 mg/dL (75-99)
[2018-05-25] MEDS: INSULN ASP PRT/INSULIN ASPART 100 UNIT/ML 10 ML VIAL SQ SCH ×2 (08:15→18:10)
[2018-05-25] MEDS: INSULIN ASPART 100 UNIT/ML 1 ML 10 ML VIAL SQ SCH ×4 (08:36→21:32)
[2018-05-25] MEDS: FLUoxetine HCL 10 MG CAP PO SCH (08:37)
[2018-05-25] MEDS: PIOGLITAZONE 30 MG TAB PO SCH (08:37)
[2018-05-25] MEDS: metFORMIN 500 MG TAB PO SCH ×2 (09:29→21:31)
[2018-05-25] MEDS: DULoxetine HCL 60 MG CAPSULE.DR PO SCH (09:29)
[2018-05-25] MEDS: FLUTICASONE 50MCG/SPRAY NASAL 16GM EA NOSTRIL SCH (09:29)
[2018-05-25] MEDS: PANTOPRAZOLE 40 MG/10 ML VIAL IV SCH ×2 (09:30→21:31)
[2018-05-25] MEDS: METOPROLOL TARTRATE 25 MG TAB PO SCH ×2 (09:30→21:31)
[2018-05-25] MEDS: HEPARIN SODIUM,PORCINE 5,000 UNIT/ML 1 ML VIAL SQ SCH ×2 (09:31→21:30)
[2018-05-25 12:18] LABS: Anisocytosis Slight; Basophils % (A) 0 %; Eosinophils # (A) 0.3 k/uL (0-0.7); Eosinophils % (A) 3 %; HCT 25.8 % (34.0-46.0); HGB 8.6 gm/dL (11.4-16.0); Hypochromasia Slight; Lymphocytes % (A) 13 %; MCHC 33.3 g/dL (31.0-37.0); MCV 93.2 fL (80.0-100.0); Mean Platelet Volume 7.6; Monocytes # (A) 0.6 k/uL (0-1.0); Monocytes % (A) 8 %; Neutrophils # (A) 5.8 k/uL (1.3-7.7); Neutrophils % (A) 74 %; Platelet Count 204 k/uL (150-450); RBC 2.77 m/uL (3.80-5.40); RDW 16.6 % (11.5-15.5); WBC 7.8 k/uL (3.8-10.6)
[2018-05-25 12:37] LABS: Calcium 8.6 mg/dL (8.4-10.2); Magnesium 1.9 mg/dL (1.6-2.3); Phosphorus 1.8 mg/dL (2.5-4.5); Potassium 4.9 mmol/L (3.5-5.1)
[2018-05-25 12:51] LABS: Glucose,Whole Blood 136 mg/dL (75-99)
--- NOTE | 2018-05-25 13:27 | P.PN ---
Subjective Progress Note Date: 05/25/18 The patient has persistent generalized weakness and fatigue, but states that she is starting to feel better. Appetite has improved. She has had no recurrence of melenic stools Objective - Vital Signs Vital signs: Vital Signs Temp 98.3 F 05/25/18 07:00 Pulse 82 05/25/18 07:00 Resp 16 05/25/18 07:00 BP 118/53 05/25/18 07:00 Pulse Ox 92 L 05/25/18 07:00 Intake & Output 05/24/18 05/25/18 05/25/18 18:59 06:59 18:59 Intake Total 1700 300 Output Total 750 Balance 950 300 Weight 114.2 kg 114.2 kg Intake: IV 1100 Sodium Chloride 0.9% 1, 900 000 ml @ 100 mls/hr IV . Q10H [place] Rx#:[id number] Oral 600 300 Output: Urine 750 Other: Voiding Method Indwelling Catheter # Voids 1 1 1 - Constitutional General appearance: Present: no acute distress - EENT Eyes: Present: EOMI ENT: Present: hearing grossly normal, normal oropharynx - Respiratory Respiratory: bilateral: CTA - Cardiovascular Rhythm: regular Heart sounds: normal: S1, S2 - Gastrointestinal General gastrointestinal: Present: normal bowel sounds, soft - Integumentary Integumentary: Present: normal - Neurologic Neurologic: Present: CNII-XII intact - Musculoskeletal Musculoskeletal: Present: generalized weakness, strength equal bilaterally - Psychiatric Psychiatric: Present: A&O x's 3, appropriate affect - Labs CBC & Chem 7: 05/25/18 12:00 05/25/18 12:00 Labs: Abnormal Lab Results - Last 24 Hours (Table) 05/24/18 05/24/18 05/25/18 Range/Units 16:48 20:42 01:52 RBC (3.80-5.40) m/uL Hgb (11.4-16.0) gm/dL Hct (34.0-46.0) % RDW (11.5-15.5) % Chloride (98-107) mmol/L Glucose (74-99) mg/dL POC Glucose (mg/dL) 161 H 156 H 155 H (75-99) mg/dL Phosphorus (2.5-4.5) mg/dL 05/25/18 05/25/18 05/25/18 Range/Units 07:10 12:00 12:00 RBC 2.77 L (3.80-5.40) m/uL Hgb 8.6 L (11.4-16.0) gm/dL Hct 25.8 L (34.0-46.0) % RDW 16.6 H (11.5-15.5) % Chloride 109 H (98-107) mmol/L Glucose 152 H (74-99) mg/dL POC Glucose (mg/dL) 155 H (75-99) mg/dL Phosphorus 1.8 L (2.5-4.5) mg/dL 05/25/18 Range/Units 12:49 RBC (3.80-5.40) m/uL Hgb (11.4-16.0) gm/dL Hct (34.0-46.0) % RDW (11.5-15.5) % Chloride (98-107) mmol/L Glucose (74-99) mg/dL POC Glucose (mg/dL) 136 H (75-99) mg/dL Phosphorus (2.5-4.5) mg/dL Microbiology - Last 24 Hours (Table) 05/22/18 23:42 Urine Culture - Final Urine,Catheterized Escherichia coli 05/23/18 01:30 Stool Culture - Preliminary Stool 05/22/18 21:39 Blood Culture - Preliminary Blood No Growth after 48 hours Assessment and Plan (1) Anemia Narrative/Plan: Hemoglobin is stable in the 7 range. Iron studies are within normal limits, but may not show change immediately in the setting of an acute bleed. Her clinical presentation's, as well as EGD findings do indicate blood loss anemia. The patient was thus need to be started back on iron supplementation. She has not been able to tolerate by mouth iron in the past due to severe constipation. I will therefore start her on IV iron. She will be reevaluated in the outpatient setting with additional doses given as needed. The plan was discussed in detail with the admitting service Current Visit: Yes Status: Acute Code(s): D64.9 - ANEMIA, UNSPECIFIED SNOMED Code(s): 128636538 (2) GI bleed Narrative/Plan: Operative report is reviewed. It indicated evidence of gastritis and is with linitis with gastric erosions and small nonbleeding ulcer. This appears to be the source of her blood loss. At this time bleeding appears to have stopped. The patient is being treated with PPIs. Plan for iron supplementation, as noted above. She will need continued follow-up with GI. Await biopsy results Current Visit: Yes Status: Acute Code(s): K92.2 - GASTROINTESTINAL HEMORRHAGE, UNSPECIFIED SNOMED Code(s): 20682385 (3) Carcinoma of ovary Narrative/Plan: CT of the abdomen and pelvis report reviewed, showing no evidence of recurrent malignancy. The patient is supposed to have CT chest abdomen pelvis next month for her routine follow-up. This will be changed to CT chest only. Tumor markers will be rechecked at the time of her office visit Current Visit: No Status: Acute Code(s): C56.9 - MALIGNANT NEOPLASM OF UNSPECIFIED OVARY SNOMED Code(s): 315074626 (4) UTI due to extended-spectrum beta lactamase (ESBL) producing Escherichia coli Narrative/Plan: The patient is currently on antibiotic, and ID has been consulted. Defer to the admitting service and ID for continued management Current Visit: Yes Status: Acute Code(s): N39.0 - URINARY TRACT INFECTION, SITE NOT SPECIFIED; B96.29 - OTH ESCHERICHIA COLI THE CAUSE OF DISEASES CLASSD ELSWHR; Z16.12 - EXTENDED SPECTRUM BETA LACTAMASE (ESBL) RESISTANCE SNOMED Code(s): 324345111
[2018-05-25] MEDS: ERTAPENEM 1 GM in SODIUM CHLORIDE 0.9% 50 ML IVPB SCH (14:17)
[2018-05-25 15:00] LABS: Appearance,Urine Cloudy (Clear); Bilirubin,Urine Negative (Negative); Blood,Urine Moderate (Negative); Color,Urine Yellow; Glucose,Urine (UA) Negative (Negative); Granular Casts,Urine 5 /lpf (0); Hyaline Casts,Urine 5 /lpf (0-2); Ketones,Urine Negative (Negative); Leukocyte Esterase,Urine Large (Negative); Mucus,Urine Rare /hpf; Nitrite,Urine Negative (Negative); PH, Urine 5.5 (5.0-8.0); Protein,Urine Trace (Negative); RBC,Urine 10 /hpf (0-5); Specific Gravity,Urine 1.017 (1.001-1.035); Squamous Epithelial Cell,Urine 1 /hpf (0-4); Urobilinogen,Urine <2.0 mg/dL (<2.0)
--- NOTE | 2018-05-25 16:47 | PN ---
PROGRESS NOTE DATE OF SERVICE: 05/25/2018 This 73-year-old woman who was admitted with diarrhea, nausea and GI bleed had EGD that showed antral ulcers. The patient also had ESBL E coli grown from the culture. The patient closely monitored. No chest pain. No palpitations. No fever. PAST MEDICAL HISTORY: Reviewed. REVIEW OF SYSTEMS: CARDIOVASCULAR: No angina. RESPIRATORY: As mentioned earlier. GI: As mentioned. : No dysuria. NERVOUS SYSTEM: No numbness or weakness. MEDICATIONS: 1. Tylenol 650 q.6h p.r.n. 2. [place] 5 mg q.6h. 3. Xanax 0.25 t.i.d. 4. [place] 10 mg t.i.d. 5. Cymbalta 60 mg daily. 6. Prozac 10 mg p.o. daily. 7. Flonase. 8. Heparin 5000 subcu b.i.d. 9. Dilaudid 0.5 mg q.6h p.r.n. 10.NovoLog mixed 70/24, 14. 11.Synthroid 100 mcg p.o. daily. 12.Glucophage 500 mg. 13.Lopressor 50 mg p.o. b.i.d. 14.Narcan p.r.n. 15.Zofran 4 mg q.8h p.r.n. 16.Oxy-IR 10 mg q.i.d. p.r.n. 17.Protonix 40 mg IV b.i.d. 18.Actos 30 mg q.a.m. 19.Restoril 50 mg q.h.s. p.r.n. PHYSICAL EXAM: Patient is alert, oriented x3. Pulse is 82, blood pressure 118/63, respirations 16, temperature 98.2, pulse ox 98% on room air. HEENT: Conjunctivae pale. Oral mucosa moist. Neck is no jugular venous distention. No carotid bruit. No lymph node enlargement. CARDIOVASCULAR: S1, S2. RESPIRATORY: Breath sounds diminished in the bases. Bilateral scattered rhonchi and crackles. ABDOMEN: Soft, nontender. No mass palpable. LEGS: No edema, no swelling. NERVOUS SYSTEM: Higher functions as mentioned. Moves all four limbs. No focal motor deficits. LYMPHATICS: No lymphadenopathy in the neck, axillae, groin. SKIN: No ulcer, rash. LABS: WBC 7.2, hemoglobin 10.6. UA significant UTI present. Phos is 1.8. ASSESSMENT: 1. Acute upper gastrointestinal bleeding status post EGD showing antral gastritis and multiple erosions with antral ulcers and peptic ulcer disease. 2. Possible acute gastroenteritis. 3. Acute urinary tract infection with ESBL E coli, present on admission. 4. Acute blood loss anemia, status post transfusion. 5. Increased WBC. 6. Hyponatremia. 7. Increased creatinine with possible acute renal failure, possibly prerenal acute tubular necrosis. 8. History of asthma. 9. History of coronary artery disease. 10.History of diabetes type 2. 11.Hypertension. 12.Hyperlipidemia. 13.History of degenerative joint disease. 14.Hypothyroidism. 15.History of right-sided ovarian cancer, status post chemotherapy. 16.History of cholecystectomy. 17.History of bipolar. 18.Remote history of nicotine dependence. 19.Obesity with body mass index 42.3. DISCUSSION AND RECOMMENDATIONS: I recommend to continue current management, continue monitoring and symptomatic treatment. Otherwise continue with antibiotics, ertapenem. Infectious Disease evaluation for the ESBL E coli. Otherwise, continue current medications. Continue with proton pump inhibitors. Repeat labs. Guarded prognosis because of multiple complex medical issues. Further recommendations to follow. MMODL / IJN: [id number] /
[2018-05-25 17:08] LABS: Glucose,Whole Blood 151 mg/dL (75-99)
[2018-05-25 20:40] LABS: Glucose,Whole Blood 140 mg/dL (75-99)
[2018-05-26] MEDS: BACLOFEN 10 MG TAB PO PRN ×2 (03:54→20:23)
[2018-05-26] MEDS: LEVOTHYROXINE 100 MCG TAB PO SCH (06:19)
[2018-05-26 06:51] LABS: Anisocytosis Slight; Basophils % (A) 0 %; Eosinophils # (A) 0.2 k/uL (0-0.7); Eosinophils % (A) 4 %; HCT 21.6 % (34.0-46.0); Hypochromasia Slight; Lymphocytes # (A) 1.1 k/uL (1.0-4.8); Lymphocytes % (A) 22 %; MCH 30.2 pg (25.0-35.0); MCHC 31.5 g/dL (31.0-37.0); MCV 95.8 fL (80.0-100.0); Macrocytosis Slight; Mean Platelet Volume 7.2; Monocytes # (A) 0.5 k/uL (0-1.0); Monocytes % (A) 9 %; Neutrophils % (A) 61 %; Platelet Count 188 k/uL (150-450); RBC 2.26 m/uL (3.80-5.40); RDW 17.7 % (11.5-15.5); WBC 4.9 k/uL (3.8-10.6)
[2018-05-26 07:05] LABS: Carbon Dioxide 22 mmol/L (22-30); Chloride 117 mmol/L (98-107); Glucose 79 mg/dL (74-99); Potassium 3.6 mmol/L (3.5-5.1); Sodium 140 mmol/L (137-145)
[2018-05-26 07:06] LABS: Anion Gap 1 mmol/L; Blood Urea Nitrogen 11 mg/dL (7-17); Calcium 6.7 mg/dL (8.4-10.2); Magnesium 1.4 mg/dL (1.6-2.3)
[2018-05-26 07:13] LABS: HGB 6.8 gm/dL (11.4-16.0)
[2018-05-26 07:22] LABS: Glucose,Whole Blood 113 mg/dL (75-99)
[2018-05-26] MEDS: INSULIN ASPART 100 UNIT/ML 1 ML 10 ML VIAL SQ SCH ×4 (07:32→21:08)
--- NOTE | 2018-05-26 08:06 | CONS ---
CONSULTATION DATE OF SERVICE: 05/22/2018. REASON FOR CONSULTATION: ESBL E coli urinary tract infection infection. HISTORY OF PRESENT ILLNESS: The patient is a 73-year-old female who presented to the ER at [facility] on 05/22/2018 with chief complaints of diarrhea. Apparently the patient did have exposure to diarrhea for over 24 hours with almost 10 to 15 episodes. The patient diarrhea was mostly watery. No blood or mucus in it and has been complaining of some crampy lower abdominal pain. Pain has been intensity about 4-5 out of 10 and no radiation. Some nausea but no vomiting: The patient has been feeling lightheadedness and dizziness. The patient did have a stool for C difficile, which came back negative. She did have a CT abdominal and pelvis suggestive of colitis. She has been evaluated by [facility] and EGD has been performed and biopsy has been obtained. The patient also have a UA obtained on admission, which is now coming back positive with ESBL E coli. The patient has been treated with Rocephin. I was asked to see the patient for further recommendation regarding antibiotic therapy. The patient did have a history of recurrent UTIs and the last UTI was treated about 2 weeks ago with oral Bactrim DS. The patient does complain of some burning of urine and suprapubic discomfort 3 to 4/10, and no radiation. However, the patient denies any pain in her flank area and no further nausea vomiting and no high-grade fever. REVIEW OF SYSTEMS: Positive points have been mentioned in HPI. Other review of systems has been negative. PAST MEDICAL HISTORY: Diabetes mellitus, hypertension, hyperlipidemia, osteoarthritis, hypothyroidism, coronary disease and asthma, cancer for which the patient completed her chemo. PAST SURGICAL HISTORY: Appendectomy, cholecystectomy, hysterectomy, joint replacement, tonsillectomy. SOCIAL HISTORY: Remote history of smoking. Occasionally drinks. No drug use. FAMILY HISTORY: No pertinent findings noticed. ALLERGIES: TO AMOXICILLIN, CIPROFLOXACIN. MEDICATION: Include the patient is currently on Tylenol, [place], Xanax, Baclofen, Cymbalta, Rocephin, Prozac, Flonase, heparin, Dilaudid, Synthroid, Glucophage, Lopressor, Narcan, Zofran, Protonix, Actos and Restoril along with Rocephin. PHYSICAL EXAMINATION: Blood pressure is 123/57 with a pulse of 80, temperature 97.3, she is 93%. General description is an elderly female lying in bed in no distress. HEENT: Shows pallor. No scleral icterus. Oral mucosa membranes dry. No pharyngeal erythema or thrush. Neck trachea central. No thyromegaly. Lungs unlabored breathing, clear to auscultation anteriorly. No wheeze or crackles. Heart S1, S2. Regular rate and rhythm. Abdomen soft, no tenderness. No guarding or rigidity. Extremities: No edema of the feet. Skin examination: No rash or mass palpable. Neurological: Patient is awake, alert, oriented times three. Mood and affect normal. LABS: Hemoglobin 8.6, white count 7.8. BUN of 15, creatinine 0.92. UA has been positive. Urine culture with an ESBL E coli. DIAGNOSTIC IMPRESSION AND PLAN: Patient admitted to the hospital mostly with gastrointestinal symptoms. However, the patient also have a burning and frequency of urine. The patient did have a history of recurrent urinary tract infection, and has been treated with multiple antibiotic therapy and now the urine culture finalized with more than 100,000 colonies of ESBL E coli, likely representing a symptomatic urinary tract infection. PLAN: 1. Repeat urine culture has been ordered. 2. Discontinue the Rocephin. 3. We will start the patient on Invanz 1 g daily. However, the patient being more of a rather than deep infection and hence will need to plan antibiotic therapy for 3-5 days at the maximum. Thank you for this consultation. Will follow this patient along with you. MMODL / IJN: [id number] /
[2018-05-26] MEDS: PANTOPRAZOLE 40 MG/10 ML VIAL IV SCH ×2 (08:54→20:23)
[2018-05-26] MEDS: HEPARIN SODIUM,PORCINE 5,000 UNIT/ML 1 ML VIAL SQ SCH ×2 (08:54→20:23)
[2018-05-26] MEDS: INSULN ASP PRT/INSULIN ASPART 100 UNIT/ML 10 ML VIAL SQ SCH ×2 (08:54→18:02)
[2018-05-26] MEDS: METOPROLOL TARTRATE 25 MG TAB PO SCH ×2 (08:55→20:23)
[2018-05-26] MEDS: FLUTICASONE 50MCG/SPRAY NASAL 16GM EA NOSTRIL SCH (08:55)
[2018-05-26] MEDS: ERTAPENEM 1 GM in SODIUM CHLORIDE 0.9% 50 ML IVPB SCH (08:55)
[2018-05-26] MEDS: DULoxetine HCL 60 MG CAPSULE.DR PO SCH (08:56)
[2018-05-26] MEDS: SODIUM CHLORIDE 0.9% 1,000 ML IV SCH ×2 (08:56→18:14)
[2018-05-26] MEDS: FLUoxetine HCL 10 MG CAP PO SCH (08:56)
[2018-05-26] MEDS: metFORMIN 500 MG TAB PO SCH ×2 (08:56→20:23)
[2018-05-26] MEDS: PIOGLITAZONE 30 MG TAB PO SCH (08:56)
[2018-05-26] MEDS: DOCUSATE 100 MG CAP PO SCH ×2 (09:45→20:23)
[2018-05-26 12:02] LABS: Glucose,Whole Blood 109 mg/dL (75-99)
[2018-05-26] MEDS ORDERED: FUROSEMIDE 10 MG/ML 2 ML VIAL IV ONE (16:00)
[2018-05-26 16:49] LABS: Glucose,Whole Blood 133 mg/dL (75-99)
[2018-05-26] MEDS: SODIUM FERRIC GLUCONAT-SUCROSE 125 MG in SODIUM CHLORIDE 0.9% 100 ML IVPB SCH (18:12)
--- NOTE | 2018-05-26 19:03 | PN ---
PROGRESS NOTE DATE OF SERVICE: 05/26/2018 This 73-year-old woman who was admitted with upper GI bleeding, had EGD showing antral gastritis, multiple erosions with antral ulcers and peptic ulcer disease. The patient also had ESBL E coli culture from the urine. Patient also had a hemoglobin dropped today to 6.8. One unit of transfusion arranged. Magnesium is 1.4. The patient being closely monitored at this time. PAST MEDICAL HISTORY: Reviewed. REVIEW OF SYSTEMS: CARDIOVASCULAR: No angina. RESPIRATORY: As mentioned. GI: As mentioned earlier. : No dysuria. NERVOUS SYSTEM: No numbness or weakness. HEMATOLOGY: As mentioned earlier. CURRENT MEDICATIONS: Reviewed and include: 1. Tylenol 650 q.6h p.r.n. 2. [place] 5 mg q.6h p.r.n. 3. Xanax 0.5 t.i.d. 4. [place] 10 mg q.i.d. p.r.n. 5. Colace 100 mg p.o. b.i.d. 6. Cymbalta 60 mg. 7. Ertapenem 1 g daily. 8. Iron sulfate 1 daily. 9. Prozac 10 mg daily. 10.Flonase 2 sprays daily. 11.Heparin 5 subcu b.i.d. 12.Dilaudid 0.5 mg q.6h p.r.n. 13.NovoLog mix 70/30, 24 and 14 units. 14.NovoLog scale. 15.Synthroid 100 mcg p.o. daily. 16.Glucophage 500 mg p.o. b.i.d. 17.Lopressor 25 mg p.o. b.i.d. 18.Narcan. 19.Zofran. 20.Oxy IR 10 mg q.i.d. p.r.n. 21.Protonix 40 mg IV b.i.d. 22.Actos 30 mg q.a.m. 23.Restoril 50 mg q.h.s. p.r.n. PHYSICAL EXAM: Patient is alert, oriented x3. Pulse 69, blood pressure 114/42, respiration 16, temperature 98.4, pulse ox 94% on room air. HEENT: Conjunctivae normal. Oral mucosa moist. Neck is no jugular venous distention. No carotid bruit. No lymph node enlargement. CARDIOVASCULAR: S1, S2. RESPIRATORY: Breath sounds diminished in the bases. No rhonchi, no crackles. ABDOMEN: Soft, nontender. No mass palpable. LEGS: No edema. NERVOUS SYSTEM: Diffusely weak. LAB STUDIES: WBC 4.9, hemoglobin 6.8, and magnesium 1.4. Glucose 109, 133. ASSESSMENT: 1. Acute upper gastrointestinal bleeding, status post EGD showing possibly gastritis and multiple erosions with antral ulcers and peptic ulcer disease. 2. Possible acute gastroenteritis. 3. Acute urinary tract infection with ESBL E coli, present on admission. 4. Acute blood loss anemia, status post transfusion. 5. Increased WBC. 6. Hyponatremia. 7. Increased creatinine with possible acute renal failure, possibly prerenal acute tubular necrosis. 8. History of asthma. 9. History of coronary artery disease. 10.Diabetes mellitus type 2. 11.Hypertension. 12.History of degenerative joint disease. 13.History of hypothyroidism. 14.History of right-sided ovarian cancer, status post chemotherapy. 15.History of cholecystectomy. 16.History of bipolar. 17.Remote history of nicotine dependence. 18.Obesity with body mass index of 42.3. DISCUSSION AND RECOMMENDATIONS: Continue current management, continue monitoring and symptomatic treatment. Continue with transfusion. Lasix after the transfusion and otherwise monitor closely. Downgrade the diet to be clear liquids. Continue rest of medication. Repeat labs. Prognosis guarded because of multiple complex medical issues. Further recommendations to follow. MMODL / IJN: [id number] /
[2018-05-26] MEDS: MAGNESIUM SULFATE-D5W PMX 1 GM in DEXTROSE/WATER 1 100ML.BAG IVPB SCH ×2 (20:22→21:24)
[2018-05-26 20:40] LABS: Glucose,Whole Blood 122 mg/dL (75-99)
--- NOTE | 2018-05-27 00:06 | PN ---
PROGRESS NOTE DATE OF SERVICE: 05/26/2018. REASON FOR FOLLOWUP: ESBL E coli urinary tract infection. INTERVAL HISTORY: The patient is currently afebrile. She is breathing comfortably. Denies having any chest pain or shortness of breath or cough. No abdominal pain. No nausea, vomiting, or any diarrhea. EXAMINATION: Blood pressure is 118/62, pulse of 72, temperature 98.2. She is 95% on room air. General description is an elderly female lying in bed in no distress. Respiratory system: Unlabored breathing, clear to auscultation anteriorly. Heart S1, S2. Regular rate and rhythm. Abdomen soft. No tenderness. LABS: Hemoglobin 6.4, white count 4.9, BUN of 11, creatinine 0.70. DIAGNOSTIC IMPRESSION AND PLAN: Patient with ESBL E coli urinary tract infection likely is cystitis, clinically doubt deep infection. Continue Invanz to finish a 3 to 5 day course of therapy. Continue supportive care. MMODL / IJN: [id number] /
[2018-05-27] MEDS: SODIUM CHLORIDE 0.9% 1,000 ML IV SCH ×2 (03:44→14:20)
[2018-05-27] MEDS: LEVOTHYROXINE 100 MCG TAB PO SCH (06:18)
[2018-05-27 07:28] LABS: Glucose,Whole Blood 97 mg/dL (75-99)
[2018-05-27] MEDS: INSULIN ASPART 100 UNIT/ML 1 ML 10 ML VIAL SQ SCH ×4 (07:39→20:53)
[2018-05-27] MEDS: ERTAPENEM 1 GM in SODIUM CHLORIDE 0.9% 50 ML IVPB SCH (07:45)
[2018-05-27] MEDS: PANTOPRAZOLE 40 MG/10 ML VIAL IV SCH ×2 (07:45→20:52)
[2018-05-27] MEDS: HEPARIN SODIUM,PORCINE 5,000 UNIT/ML 1 ML VIAL SQ SCH ×2 (07:45→20:52)
[2018-05-27] MEDS: DULoxetine HCL 60 MG CAPSULE.DR PO SCH (07:46)
[2018-05-27] MEDS: metFORMIN 500 MG TAB PO SCH ×2 (07:46→20:53)
[2018-05-27] MEDS: DOCUSATE 100 MG CAP PO SCH ×2 (07:46→20:53)
[2018-05-27] MEDS: FLUoxetine HCL 10 MG CAP PO SCH (07:46)
[2018-05-27] MEDS: PIOGLITAZONE 30 MG TAB PO SCH (07:46)
[2018-05-27] MEDS: METOPROLOL TARTRATE 25 MG TAB PO SCH ×2 (07:46→20:53)
[2018-05-27] MEDS: FLUTICASONE 50MCG/SPRAY NASAL 16GM EA NOSTRIL SCH (07:47)
[2018-05-27] MEDS: INSULN ASP PRT/INSULIN ASPART 100 UNIT/ML 10 ML VIAL SQ SCH ×2 (07:47→18:06)
[2018-05-27] MEDS: SODIUM FERRIC GLUCONAT-SUCROSE 125 MG in SODIUM CHLORIDE 0.9% 100 ML IVPB SCH (09:15)
[2018-05-27 09:54] LABS: Calcium 8.4 mg/dL (8.4-10.2); Phosphorus 3.1 mg/dL (2.5-4.5)
[2018-05-27 10:11] LABS: Anisocytosis Slight; HCT 30.7 % (34.0-46.0); Hypochromasia Slight; MCH 30.7 pg (25.0-35.0); MCHC 32.8 g/dL (31.0-37.0); MCV 93.6 fL (80.0-100.0); Mean Platelet Volume 7.6; Platelet Count 248 k/uL (150-450); RBC 3.28 m/uL (3.80-5.40); RDW 16.9 % (11.5-15.5); WBC 6.6 k/uL (3.8-10.6)
[2018-05-27 10:15] LABS: HGB 10.1 gm/dL (11.4-16.0)
[2018-05-27 12:08] LABS: Glucose,Whole Blood 112 mg/dL (75-99)
[2018-05-27 12:17] LABS: Band Neutrophils % 2 %; Eosinophils # (M) 0.26 k/uL (0-0.7); Lymphocytes # (M) 0.86 k/uL (1.0-4.8); Monocytes # (M) 0.59 k/uL (0-1.0); Myelocytes # (M) 0.13 k/uL (0); Myelocytes % 2 %; Neutrophils % (M) 72 %; Nucleated Red Blood Cells 0 /100 WBC (0-0); Total Cells Counted 200
[2018-05-27 12:18] LABS: Polychromasia Present
[2018-05-27 17:03] LABS: Glucose,Whole Blood 131 mg/dL (75-99)
[2018-05-27 20:29] LABS: Glucose,Whole Blood 123 mg/dL (75-99)
[2018-05-27] MEDS: BACLOFEN 10 MG TAB PO PRN (20:57)
--- NOTE | 2018-05-27 21:13 | PN ---
PROGRESS NOTE DATE OF SERVICE: 05/27/2018. REASON FOR FOLLOWUP: ESBL E coli urinary tract infection. INTERVAL HISTORY: The patient is afebrile. The patient denies having any chest pain, shortness of breath or cough. No nausea, no vomiting. She did have slight blood in her stools. EXAMINATION: Blood pressure 139/65, pulse of 70, temperature 96.8. She is 99% on room air. General description is an elderly female lying in bed in no distress. Respiratory system: Unlabored breathing, clear to auscultation anteriorly. Heart S1, S2. Regular rate and rhythm. Abdomen soft, no tenderness. Extremities: No edema of the feet. LABS: Hemoglobin is 10.1, white count 6.6 with a BUN of 11, creatinine 0.86. DIAGNOSTIC IMPRESSION AND PLAN: Patient with ESBL E coli, urinary tract infection infection and possible cystitis. The patient to continue with Invanz with duration of antibiotic should be at least 5 days of which the patient received about 3 doses. Continue supportive care. MMODL / IJN: [id number] /
--- NOTE | 2018-05-27 23:14 | P.PN ---
Subjective Progress Note Date: 05/27/18 Principal diagnosis: Anemia due to blood loss, melena Patient reporting that she has been tolerating her diet with no abdominal pain. 1 bowel movements a day with no recurrence of melena. Objective - Vital Signs Vital signs: Vital Signs Temp 96.8 F L 05/27/18 14:20 Pulse 70 05/27/18 14:20 Resp 20 05/27/18 14:20 BP 139/65 05/27/18 14:20 Pulse Ox 99 05/27/18 14:20 Intake & Output 05/27/18 05/27/18 05/28/18 06:59 18:59 06:59 Intake Total 925 Balance 925 Intake: Oral 925 Other: Voiding Method Indwelling Catheter # Voids 5 2 # Bowel Movements 1 - Exam On physical examination, patient appears comfortable in no apparent distress. HEAD: Normocephalic, atraumatic. EYES: No scleral icterus. No conjunctival injection. MOUTH: No lesions, tongue midline. NECK: Trachea midline, no gross abnormalities. CHEST: Clear to auscultation with no wheezing or rhonchi appreciated. HEART: Regular rate and rhythm. ABDOMEN: Soft, obese. Bowel sounds are positive. No organomegaly. No guarding or rigidity. EXTREMITIES: No pedal edema. SKIN: No rashes, no jaundice. NEUROLOGIC: Alert and oriented x3. No focal deficits. - Labs CBC & Chem 7: 05/27/18 09:25 05/27/18 09:25 Labs: Abnormal Lab Results - Last 24 Hours (Table) 05/27/18 05/27/18 05/27/18 Range/Units 09:25 09:25 11:48 RBC 3.28 L (3.80-5.40) m/uL Hgb 10.1 L D (11.4-16.0) gm/dL Hct 30.7 L (34.0-46.0) % RDW 16.9 H (11.5-15.5) % Lymphocytes # (Manual) 0.86 L (1.0-4.8) k/uL Myelocytes # (Manual) 0.13 H (0) k/uL Glucose 137 H (74-99) mg/dL POC Glucose (mg/dL) 112 H (75-99) mg/dL 11/26/18 11/26/18 Range/Units 16:51 20:19 RBC (3.80-5.40) m/uL Hgb (11.4-16.0) gm/dL Hct (34.0-46.0) % RDW (11.5-15.5) % Lymphocytes # (Manual) (1.0-4.8) k/uL Myelocytes # (Manual) (0) k/uL Glucose (74-99) mg/dL POC Glucose (mg/dL) 131 H 123 H (75-99) mg/dL Microbiology - Last 24 Hours (Table) 05/25/18 14:30 Urine Culture - Final Urine,Voided Escherichia coli 05/23/18 01:30 Stool Culture - Final Stool 05/22/18 21:39 Blood Culture - Preliminary Blood No Growth after 96 hours Assessment and Plan (1) Anemia Narrative/Plan: Anemia due to GI blood loss with EGD showing antral gastritis with multiple erosions and ulcerations. Tolerating diet with no further melena. Current Visit: Yes Status: Acute Code(s): D64.9 - ANEMIA, UNSPECIFIED SNOMED Code(s): 538409593 (2) GI bleed Current Visit: Yes Status: Acute Code(s): K92.2 - GASTROINTESTINAL HEMORRHAGE, UNSPECIFIED SNOMED Code(s): 84864442 (3) Weakness Current Visit: Yes Status: Acute Code(s): R53.1 - WEAKNESS SNOMED Code(s) : 22582631 Plan: Supportive care Okay for Protonix 40 mg by mouth twice daily Monitor hemoglobin and transfuse as needed Monitor stool output Follow up with gastroenterology after discharge Thank you for allowing us to participate in the care of this patient we will continue to follow
[2018-05-28] MEDS: SODIUM CHLORIDE 0.9% 1,000 ML IV SCH ×3 (03:55→20:54)
[2018-05-28] MEDS: LEVOTHYROXINE 100 MCG TAB PO SCH (06:17)
--- NOTE | 2018-05-28 06:35 | PN ---
PROGRESS NOTE DATE OF SERVICE: 05/27/2018. PRESENTING COMPLAINT: Tired. INTERVAL HISTORY: This patient was seen by me yesterday on 05/27/2018. Status post GI bleed for which patient is on PPI. Patient did undergo EGD. Also getting IV antibiotics for UTI. Tolerating a diet. Overall feeling better. REVIEW OF SYSTEMS: Done for constitutional, cardiovascular, GI, pulmonary; relevant findings as above. CURRENT MEDICATIONS: Current medications are reviewed that include IV ertapenem. PHYSICAL EXAMINATION: On examination, temperature 96.8, pulse 70, respiration 20, blood pressure 139/65, pulse ox 99% on room air. GENERAL APPEARANCE: Sitting up, comfortable. EYES: Pupils equal. Conjunctivae normal. NECK: JVD unable to assess. Mass not palpable. RESPIRATORY: Effort normal. LUNGS: Fair entry. CARDIOVASCULAR: First and seconds sounds normal. No edema. ABDOMEN: Soft, nontender. Liver and spleen not palpable. PSYCHIATRY: Alert and oriented x3. Mood and affect normal. INVESTIGATIONS: White count 6.6, hemoglobin 10.1. Potassium 4. BUN 11, creatinine 0.86. ASSESSMENT: 1. Acute gastrointestinal bleed from antral gastritis and multiple erosions causing acute blood loss anemia. Patient requiring a total of 4 units of blood. 2. Morbid obesity, body mass index 44.6. 3. Acute urinary tract infection from cystitis from Escherichia coli/ESBL on IV Invanz. 4. Coronary artery disease. 5. Diabetes mellitus type 2, chronically on insulin. 6. Hyperlipidemia. 7. Essential hypertension. 8. Primary hypothyroid. 9. Primary osteoarthritis. 10.Status post ovarian cancer. 11.Chronic urinary stress incontinence. 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 13.Bipolar disorder, stable on current medications. PLAN: Continue current medication and treatment plan. Patient is on PPI. Hemoglobin is stable at 10.1. The patient to complete a course of antibiotics. MMODL / IJN: [id number] /
[2018-05-28 07:30] LABS: Glucose,Whole Blood 109 mg/dL (75-99)
[2018-05-28] MEDS: ERTAPENEM 1 GM in SODIUM CHLORIDE 0.9% 50 ML IVPB SCH (07:51)
[2018-05-28] MEDS: DOCUSATE 100 MG CAP PO SCH ×2 (07:51→20:54)
[2018-05-28] MEDS: DULoxetine HCL 60 MG CAPSULE.DR PO SCH (07:51)
[2018-05-28] MEDS: PANTOPRAZOLE 40 MG TABLET PO SCH ×2 (07:51→20:54)
[2018-05-28] MEDS: metFORMIN 500 MG TAB PO SCH ×2 (07:51→20:54)
[2018-05-28] MEDS: METOPROLOL TARTRATE 25 MG TAB PO SCH ×2 (07:51→20:54)
[2018-05-28] MEDS: FLUoxetine HCL 10 MG CAP PO SCH (07:51)
[2018-05-28] MEDS: HEPARIN SODIUM,PORCINE 5,000 UNIT/ML 1 ML VIAL SQ SCH ×2 (07:51→20:54)
[2018-05-28] MEDS: PIOGLITAZONE 30 MG TAB PO SCH (07:51)
[2018-05-28] MEDS: INSULN ASP PRT/INSULIN ASPART 100 UNIT/ML 10 ML VIAL SQ SCH ×2 (07:52→17:43)
[2018-05-28] MEDS: INSULIN ASPART 100 UNIT/ML 1 ML 10 ML VIAL SQ SCH ×4 (07:52→21:11)
[2018-05-28] MEDS: FLUTICASONE 50MCG/SPRAY NASAL 16GM EA NOSTRIL SCH (07:52)
[2018-05-28] MEDS: SODIUM FERRIC GLUCONAT-SUCROSE 125 MG in SODIUM CHLORIDE 0.9% 100 ML IVPB SCH (08:31)
[2018-05-28 09:07] LABS: Magnesium 1.8 mg/dL (1.6-2.3); Phosphorus 3.6 mg/dL (2.5-4.5)
[2018-05-28 11:14] LABS: Anisocytosis Slight; Basophils % (A) 0 %; Eosinophils # (A) 0.2 k/uL (0-0.7); Eosinophils % (A) 4 %; HCT 30.8 % (34.0-46.0); HGB 9.7 gm/dL (11.4-16.0); Hypochromasia Moderate; Lymphocytes # (A) 0.9 k/uL (1.0-4.8); Lymphocytes % (A) 16 %; MCH 30.8 pg (25.0-35.0); MCHC 31.5 g/dL (31.0-37.0); MCV 97.8 fL (80.0-100.0); Macrocytosis Slight; Mean Platelet Volume 9.3; Monocytes # (A) 0.6 k/uL (0-1.0); Monocytes % (A) 10 %; Neutrophils # (A) 4.1 k/uL (1.3-7.7); Neutrophils % (A) 69 %; Platelet Count 268 k/uL (150-450); RBC 3.15 m/uL (3.80-5.40); RDW 17.3 % (11.5-15.5)
[2018-05-28 12:09] LABS: Glucose,Whole Blood 87 mg/dL (75-99)
[2018-05-28 17:17] LABS: Glucose,Whole Blood 119 mg/dL (75-99)
--- NOTE | 2018-05-28 18:30 | P.PN ---
Subjective Progress Note Date: 05/28/18 Principal diagnosis: GI Bleed, Anemia No acute complaints today, Status Post Iron infusion today. Objective - Vital Signs Vital signs: Vital Signs Temp 98.3 F 05/28/18 14:50 Pulse 81 05/28/18 14:50 Resp 16 05/28/18 14:50 BP 146/66 05/28/18 14:50 Pulse Ox 96 05/28/18 14:50 Intake & Output 05/27/18 05/28/18 05/28/18 18:59 06:59 18:59 Intake Total 600 Balance 600 Intake: Oral 600 Other: Voiding Method Indwelling Catheter Bedside Commode Incontinent # Voids 2 3 4 # Bowel Movements 1 2 - Exam - Constitutional General appearance: Present: no acute distress - EENT Eyes: Present: EOMI ENT: Present: hearing grossly normal, normal oropharynx - Respiratory Respiratory: bilateral: CTA - Cardiovascular Rhythm: regular Heart sounds: normal: S1, S2 - Gastrointestinal General gastrointestinal: Present: normal bowel sounds, soft - Integumentary Integumentary: Present: normal - Neurologic Neurologic: Present: CNII-XII intact - Musculoskeletal Musculoskeletal: Present: generalized weakness, strength equal bilaterally - Psychiatric Psychiatric: Present: A&O x's 3, appropriate affect - Labs CBC & Chem 7: 05/28/18 08:31 05/27/18 09:25 Labs: Abnormal Lab Results - Last 24 Hours (Table) 05/27/18 05/28/18 05/28/18 Range/Units 20:19 07:29 08:31 RBC 3.15 L (3.80-5.40) m/uL Hgb 9.7 L (11.4-16.0) gm/dL Hct 30.8 L (34.0-46.0) % RDW 17.3 H (11.5-15.5) % Lymphocytes # 0.9 L (1.0-4.8) k/uL POC Glucose (mg/dL) 123 H 109 H (75-99) mg/dL 05/28/18 Range/Units 17:03 RBC (3.80-5.40) m/uL Hgb (11.4-16.0) gm/dL Hct (34.0-46.0) % RDW (11.5-15.5) % Lymphocytes # (1.0-4.8) k/uL POC Glucose (mg/dL) 119 H (75-99) mg/dL Microbiology - Last 24 Hours (Table) 05/25/18 14:30 Urine Culture - Final Urine,Voided Escherichia coli 05/22/18 21:39 Blood Culture - Preliminary Blood No Growth after 120 hours Assessment and Plan Plan: (1) Anemia Narrative/Plan: - Status post IV Iron, although Iron studies were WNL, with active bleeding the presence of active bleeding would ensure resonable to replace. - She denies any active bleeding currently. - Follow-up with PRN IV iron as outpatient Current Visit: Yes Status: Acute Code(s): D64.9 - ANEMIA, UNSPECIFIED SNOMED Code(s): 596406382 (2) GI bleed Narrative/Plan: - Operative report is reviewed. It indicated evidence of gastritis and is with linitis with gastric erosions and small nonbleeding ulcer. - This appears to be the source of her blood loss. At this time bleeding appears to have stopped. The patient is being treated with PPIs. Plan for iron supplementation, as noted above. - She will need continued follow-up with GI. Biopsy reviewed Current Visit: Yes Status: Acute Code(s): K92.2 - GASTROINTESTINAL HEMORRHAGE, UNSPECIFIED SNOMED Code(s): 33702716 (3) Carcinoma of ovary Narrative/Plan: - CT of the abdomen and pelvis report reviewed, showing no evidence of recurrent malignancy. - The patient is supposed to have CT chest abdomen pelvis next month for her routine follow-up. This will be changed to CT chest only. - Tumor markers will be rechecked at the time of her office visit Current Visit: No Status: Acute Code(s): C56.9 - MALIGNANT NEOPLASM OF UNSPECIFIED OVARY SNOMED Code(s): 698468167 (4) UTI due to extended-spectrum beta lactamase (ESBL) producing Escherichia coli Narrative/Plan: - The patient is currently on antibiotic - ID for Continued Management Recheck CBC in am and if no signs of bleeding and remain stable may follow-up with Hematology as regularly scheduled.
[2018-05-28] MEDS: BACLOFEN 10 MG TAB PO PRN (18:47)
[2018-05-28 21:02] LABS: Glucose,Whole Blood 130 mg/dL (75-99)
[2018-05-28 23:09] VITALS: RESP 20
--- NOTE | 2018-05-28 23:41 | PN ---
PROGRESS NOTE DATE OF SERVICE: 05/28/2018 PRESENTING COMPLAINT: Tired. INTERVAL HISTORY: Patient is status post GI bleed, for which patient remains on PPI, status post EGD. Also getting treated for E coli/ESBL. Feeling a bit tired today. Tolerating a diet. Did use a walker to walk in the hallway. Also received some IV iron. REVIEW OF SYSTEMS: Done for constitutional, cardiovascular, GI, pulmonary; relevant findings as above. CURRENT MEDICATIONS: Reviewed. They include IV ertapenem. PHYSICAL EXAMINATION: Temperature 98.3, pulse 81, respiration 16, blood pressure 146/66, pulse ox 96% on room air. GENERAL APPEARANCE: Sitting up on a chair. Awake. EYES: Pupils equal. Conjunctivae normal. NECK: JVD unable to assess. Mass not palpable RESPIRATORY: Effort normal. LUNGS: Fair air entry. CARDIOVASCULAR: First and second sounds normal. No edema. ABDOMEN: Soft, non-tender. Liver and spleen not palpable. PSYCHIATRY: Alert and oriented x3. Mood and affect normal. INVESTIGATIONS: White count 6, hemoglobin 9.7. ASSESSMENT: 1. Acute gastrointestinal bleed from antral gastritis and multiple erosions causing acute blood loss anemia. Patient required a total of 4 units of blood. 2. Morbid obesity with body mass index of 44.6. 3. Acute urinary tract infection from cystitis from Escherichia coli/extended-spectrum beta-lactamase, on IV Invanz. 4. Coronary artery disease. 5. Diabetes mellitus, type 2, chronically on insulin. 6. Hyperlipidemia. 7. Essential hypertension. 8. Primary hypothyroid. 9. Primary osteoarthritis. 10.Status post ovarian cancer. Repeat CT scan is negative. 11.Chronic urinary stress incontinence. 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 13.Bipolar disorder, stable. PLAN: Continue current medication and treatment plan. Care was discussed with the patient. Probably another 1 or 2 days of IV antibiotics as per Infectious Disease. Care was discussed with the patient. MMODL / IJN: [id number] /
--- NOTE | 2018-05-28 23:53 | PN ---
PROGRESS NOTE DATE OF SERVICE: 05/28/2018. REASON FOR FOLLOWUP: ESBL E coli urinary tract infection. INTERVAL HISTORY: The patient is afebrile. She is breathing comfortably. She did complain of some lower abdominal pain, more of a dull aching, but no worsening. Did have some tarry stools. No significant burning with urination. No nausea, no vomiting. EXAMINATION: Blood pressure is 146/66, pulse of 81, temperature 98.3, she is 96% on room air. GENERAL DESCRIPTION: An elderly female up in the chair in no distress. RESPIRATORY: Unlabored breathing. Clear to auscultation anteriorly. HERAT: Heart S1, S2. Regular rate and rhythm. ABDOMEN: Soft, no tenderness DIAGNOSTIC IMPRESSION AND PLAN: Patient with an ESBL E coli urinary tract infection, currently covered with Invanz. That will be continued for 5 day course of therapy. Continue supportive care. MMODL / IJN: [id number] /
[2018-05-29] MEDS: SODIUM CHLORIDE 0.9% 1,000 ML IV SCH ×2 (05:09→14:13)
[2018-05-29] MEDS: LEVOTHYROXINE 100 MCG TAB PO SCH (06:01)
[2018-05-29 06:06] VITALS: BP 156/67; PULSE 75; TEMP 97.4
[2018-05-29] MEDS: INSULIN ASPART 100 UNIT/ML 1 ML 10 ML VIAL SQ SCH ×2 (06:54→13:13)
[2018-05-29] MEDS: ERTAPENEM 1 GM in SODIUM CHLORIDE 0.9% 50 ML IVPB SCH (07:17)
[2018-05-29] MEDS: HEPARIN SODIUM,PORCINE 5,000 UNIT/ML 1 ML VIAL SQ SCH (07:17)
[2018-05-29] MEDS: INSULN ASP PRT/INSULIN ASPART 100 UNIT/ML 10 ML VIAL SQ SCH (07:17)
[2018-05-29] MEDS: METOPROLOL TARTRATE 25 MG TAB PO SCH (07:18)
[2018-05-29] MEDS: metFORMIN 500 MG TAB PO SCH (07:18)
[2018-05-29] MEDS: DOCUSATE 100 MG CAP PO SCH (07:18)
[2018-05-29] MEDS: FLUoxetine HCL 10 MG CAP PO SCH (07:18)
[2018-05-29] MEDS: DULoxetine HCL 60 MG CAPSULE.DR PO SCH (07:18)
[2018-05-29] MEDS: PANTOPRAZOLE 40 MG TABLET PO SCH (07:18)
[2018-05-29] MEDS: PIOGLITAZONE 30 MG TAB PO SCH (07:18)
[2018-05-29] MEDS: FLUTICASONE 50MCG/SPRAY NASAL 16GM EA NOSTRIL SCH (07:19)
[2018-05-29 07:24] LABS: Glucose,Whole Blood 112 mg/dL (75-99)
[2018-05-29] MEDS: BACLOFEN 10 MG TAB PO PRN (10:06)
[2018-05-29 11:37] LABS: Glucose,Whole Blood 140 mg/dL (75-99)
--- NOTE | 2018-05-29 22:00 | PN ---
PROGRESS NOTE DATE OF SERVICE: 05/29/2018. REASON FOR FOLLOW UP: ESBL E coli urinary tract infection. INTERVAL HISTORY: The patient was seen on rounds this afternoon. The patient has been afebrile. She has been breathing comfortably. Denies having any chest pain, shortness of breath or cough. No nausea, vomiting and no diarrhea. EXAMINATION: Blood pressure is 156/67 with a pulse of 75, temperature 97.4. Pulse ox is 95% on room air. GENERAL DESCRIPTION: Elderly female up in the chair in no distress. RESPIRATORY SYSTEM: Unlabored breathing. Clear to auscultation anteriorly. HEART: S1, S2. Regular rate and rhythm. No tenderness. LABS: Hemoglobin 9.7, white count 6.0. DIAGNOSTIC IMPRESSION AND PLAN: Patient with ESBL E coli positive urine culture, more likely representing a possible cystitis as the patient has no clinical features suggestive of pyelonephritis or deep infection. She was not bacteremia. Five days of IV Invanz should be more than enough. No need for antibiotics on discharge. Plan of care was discussed with the admitting physician. BRITL / LETICIAN: [id number] /
--- NOTE | 2018-05-30 08:04 | DS ---
DISCHARGE SUMMARY DATE OF ADMISSION: 05/22/2018 DATE OF DISCHARGE: 05/29/2018 FINAL DIAGNOSES: 1. Acute gastrointestinal bleed from antral gastritis with multiple erosions causing acute blood loss anemia. Patient required a total of 4 units of blood. 2. Morbid obesity, body mass index 44.6. 3. Acute urinary tract infection from cystitis from Escherichia coli/ESBL, did complete a course of antibiotic with IV Invanz. 4. Coronary artery disease. 5. Diabetes mellitus type 2, chronically on insulin. 6. Hyperlipidemia. 7. Essential hypertension. 8. Hypothyroidism. 9. Primary osteoarthritis. 10.Status post ovarian cancer. Repeat CT scan was negative. 11.Chronic urinary stress incontinence. 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 13.Bipolar disorder, stable. 14.Chronic gait dysfunction, uses a walker. HOSPITAL COURSE: The patient presented with nausea, vomiting, and also having dark stools. The patient did undergo EGD by Dr. Quinn that showed antral gastritis and multiple erosions and small ulcerations. The patient did require a total of 4 units of blood. Patient's hemoglobin had dropped down to 6.4, at the time of discharge was up to 9.7. The patient also had a CT scan of the abdomen and pelvis that showed some nonspecific findings. The patient did also have a UTI with above organism. Did complete 5-day course of IV Invanz. Doing well. Tolerating a diet. Using a walker to get about. PHYSICAL EXAMINATION: On examination, afebrile, pulse 75, respiration 20, blood pressure 156/67, pulse ox 95% on room air. ABDOMEN: Soft, nontender. PSYCH: AO x3. INVESTIGATIONS: Hemoglobin 9.7. CONSULTATIONS: Dr. Mulligan from Oncology, Dr. Madrid from Pulmonary, Dr. Basilio from Infectious Disease, Dr. Quinn from GI. Care was discussed with the patient today and Dr. Basilio. DISCHARGE MEDICATIONS: 1. Baclofen 10 mg p.o. q.i.d. p.r.n. 2. Cymbalta 60 mg p.o. daily. 3. Oxycodone 10 mg q.i.d. p.r.n. 4. Novolin 70/30 fourteen units with breakfast, 24 with supper. 5. Synthroid 100 mcg p.o. daily. 6. Colace 100 mg b.i.d. 7. Metoprolol 25 mg b.i.d. 8. Actos 30 mg p.o. daily. 9. Prozac 10 mg p.o. daily. 10.Flonase 2 sprays each nostril daily. 11.Glucophage 500 mg p.o. b.i.d. 12.Zestoretic 20/06.5 one tab p.o. daily. 13.Prilosec 20 mg p.o. b.i.d. 14.Norvasc 5 mg p.o. q.h.s. Discontinued medications include aspirin, lisinopril, hydrochlorothiazide. Follow up with Dr. Quinn in 2 weeks. Follow up with Linda Sanders in 3 days. MMODL / IJN: [id number] /
== END 2018-05-29 16:50 | disposition home or self-care (01) | DRG 377 ==
LOC: EC 10:01 → 3SCARD 14:11 → 4MS4W 18:01 → 4SSUR 18:08 → 2SICU 05-23 00:26 → 4MS4W 05-24 17:16
PROVIDERS: ADMIT Hospitalist; ATTEND Hospitalist
PROC: 30243N1 Transfusion of Nonautologous Red Blood Cells into Central Vein, Percutaneous Approach (ICD-10-PCS; 2018-05-22)
PROC: 06HM33Z Insertion of Infusion Device into Right Femoral Vein, Percutaneous Approach (ICD-10-PCS; 2018-05-22)
PROC: 0DB78ZX Excision of Stomach, Pylorus, Via Natural or Artificial Opening Endoscopic, Diagnostic (ICD-10-PCS; principal; 2018-05-24 07:30)
DX: K29.61 Other gastritis with bleeding (principal); N17.0 Acute kidney failure with tubular necrosis; D62 Acute posthemorrhagic anemia; E87.1 Hypo-osmolality and hyponatremia; Z68.41 Body mass index [BMI] 40.0-44.9, adult; E66.01 Morbid (severe) obesity due to excess calories; I95.9 Hypotension, unspecified; E86.0 Dehydration; K25.4 Chronic or unspecified gastric ulcer with hemorrhage; N30.90 Cystitis, unspecified without hematuria; E86.1 Hypovolemia; E11.9 Type 2 diabetes mellitus without complications; B96.20 Unspecified Escherichia coli [E. coli] as the cause of diseases classified elsewhere; K59.00 Constipation, unspecified; K44.9 Diaphragmatic hernia without obstruction or gangrene; K57.30 Diverticulosis of large intestine without perforation or abscess without bleeding; J45.20 Mild intermittent asthma, uncomplicated; I25.10 Atherosclerotic heart disease of native coronary artery without angina pectoris; I10 Essential (primary) hypertension; E78.5 Hyperlipidemia, unspecified; M19.91 Primary osteoarthritis, unspecified site; G47.30 Sleep apnea, unspecified; F31.9 Bipolar disorder, unspecified; E03.9 Hypothyroidism, unspecified; N39.3 Stress incontinence (female) (male); H54.62 Unqualified visual loss, left eye, normal vision right eye; Z16.12 Extended spectrum beta lactamase (ESBL) resistance; Z79.891 Long term (current) use of opiate analgesic; Z79.82 Long term (current) use of aspirin; Z79.4 Long term (current) use of insulin; Z79.890 Hormone replacement therapy; Z79.899 Other long term (current) drug therapy; Z88.1 Allergy status to other antibiotic agents; Z88.0 Allergy status to penicillin; Z91.048 Other nonmedicinal substance allergy status; Z87.891 Personal history of nicotine dependence; Z85.43 Personal history of malignant neoplasm of ovary; Z92.21 Personal history of antineoplastic chemotherapy; Z90.49 Acquired absence of other specified parts of digestive tract; Z90.710 Acquired absence of both cervix and uterus; Z96.653 Presence of artificial knee joint, bilateral; Z98.42 Cataract extraction status, left eye; Z98.41 Cataract extraction status, right eye; Z87.440 Personal history of urinary (tract) infections; R26.9 Unspecified abnormalities of gait and mobility
CPT/HCPCS: 36415; 36556; 43239; 74018; 74176; 80048; 80053; 81001; 82150; 82272; 82728; 83036; 83540; 83550; 83605; 83630; 83690; 83735; 84100; 84484; 85025; 85045; 86850; 86900; 86901; 86920; 87040; 87045; 87046; 87077; 87086; 87186; 87324; 88305; 93005; 94760; 96361; 96374; 96375; 99285

== ENCOUNTER → 2018-07-05 | Outpatient (CLI) | payer MEDICARE ==
--- NOTE | 2018-07-05 16:26 | CT ---
EXAMINATION TYPE: CT ChestAbdPelvis w con DATE OF EXAM: 07/05/2018 COMPARISON: 05/23/2018 HISTORY: Follow up scan per patient CT DLP: 2135.8 mGycm CONTRAST: CT scan of the chest, abdomen and pelvis is performed with Oral Contrast and with IV Contrast, patien t injected with 80 mL of Isovue 300. CT Chest: LUNGS: The lungs are clear and free of infiltrate or atelectasis. No pulmonary nodule or mass is det ected. No pleural effusion or CT evidence of interstitial lung disease. MEDIASTINUM: Thoracic aorta is of normal caliber. The heart is not enlarged. No evidence for media stinal mass or adenopathy. HILAR STRUCTURES: No evidence for mass. No hilar adenopathy is appreciated. OTHER: No significant abnormality. CONTRAST CT ABDOMEN AND PELVIS FINDINGS: LIVER/GB: The gallbladder surgically absent. No space occupying hepatic lesion. Biliary tree is of no rmal caliber. PANCREAS: No inflammation. No distinct mass. SPLEEN: No splenic enlargement. No lesion seen. ADRENALS: Stable right adrenal mass with internal calcifications. Left adrenal gland is unremarkable. KIDNEYS/BLADDER: No hydronephrosis. No nephrolithiasis. No distinct renal mass. BOWEL: Normal appendix. Normal bowel caliber. No inflammation. Moderate fecal stasis. GENITAL ORGANS: Hysterectomy and oophorectomy changes noted. No evidence for recurrent or residual ov santhosh or adnexal mass. LYMPH NODES: No greater than 1cm abdominal or pelvic lymph nodes are appreciated. AORTA: No significant abnormality. OSSEOUS STRUCTURES: No significant abnormality is seen. OTHER: No significant additional abnormality is seen. IMPRESSION: 1. No evidence for recurrent or residual mass.
== END ==
LOC: RADCTMAIN 11:28
PROVIDERS: ATTEND Internal Medicine Hematology & Oncology
DX: C56.1 Malignant neoplasm of right ovary (principal); Z88.0 Allergy status to penicillin; Z88.1 Allergy status to other antibiotic agents
CPT/HCPCS: 82565; 84520; 71260; 74177; 36415; Q9967

== ENCOUNTER 2018-09-30 12:28 | Emergency (ER) | payer MEDICARE ==
[2018-09-30 12:39] VITALS: BP 116/56; PULSE 58; RESP 18
--- NOTE | 2018-09-30 13:27 | ED ---
General Adult HPI - General Chief complaint: Recheck/Abnormal Lab/Rx Stated complaint: stitches Time Seen by Provider: 09/30/18 12:35 Source: patient, RN notes reviewed Mode of arrival: ambulatory Limitations: no limitations - History of Present Illness Initial comments: 73-year-old female presents to the emergency department for suture removal. Patient had these placed 8 days ago. Patient states there are 5 in her nose and 8 in her forehead. These were unable to be removed at triage due to the crust over them. Patient has been taking Keflex 4 times a day for the past 8 days. Denies fevers or chills. Patient states he has significant abrasions noted at the lacerations.Patient has no other complaints at this time including shortness of breath, chest pain, abdominal pain, nausea or vomiting, headache, or visual changes. - Related Data Home Medications Medication Instructions Recorded Confirmed Baclofen 10 mg PO QID PRN 01/06/16 05/22/18 DULoxetine HCL [Cymbalta] 60 mg PO DAILY 01/06/16 05/22/18 oxyCODONE HCL [oxyCODONE HCL (IR)] 10 mg PO QID PRN 01/06/16 05/22/18 Insulin NPH Hum/Reg Insulin Hm 14 unit SQ AC-BRKFST 03/17/16 05/22/18 [NovoLIN 70-30 100 UNIT/ML VIAL] Insulin NPH Hum/Reg Insulin Hm 24 unit SQ AC-SUPPER 03/17/16 05/22/18 [NovoLIN 70-30 100 UNIT/ML VIAL] Levothyroxine Sodium [Synthroid] 100 mcg PO DAILY 07/25/17 05/22/18 Docusate Sodium [Dok] 100 mg PO BID 02/19/18 05/22/18 Metoprolol Tartrate 25 mg PO BID 02/19/18 05/22/18 Pioglitazone HCl [Actos] 30 mg PO QAM 02/19/18 05/22/18 FLUoxetine HCL [PROzac] 10 mg PO DAILY 05/22/18 05/22/18 Fluticasone Nasal [place] [Flonase 2 spr EA NOSTRIL DAILY 05/22/18 05/22/18 Nasal [place]] metFORMIN HCL [Glucophage] 500 mg PO BID 05/22/18 05/22/18 Previous Rx's Medication Instructions Recorded Lisinopril-Hctz 20-12.5 mg 1 tab PO DAILY #30 tab 05/29/18 [Zestoretic 20-12.5] Omeprazole [PriLOSEC] 20 mg PO AC-BID #60 cap 05/29/18 amLODIPine [Norvasc] 5 mg PO HS #0 05/29/18 Cephalexin [Keflex] 500 mg PO Q6HR 10 Days #40 cap 09/22/18 Allergies Allergy/AdvReac Type Severity Reaction Status Date / Time adhesive Allergy blisters Verified 09/30/18 12:36 amoxicillin Allergy Rash/Hives Verified 09/30/18 12:36 ciprofloxacin [From Cipro] Allergy Dyspnea Verified 09/30/18 12:36 ciprofloxacin HCl Allergy Dyspnea Verified 09/30/18 12:36 [From Cipro] Review of Systems ROS Statement: Those systems with pertinent positive or pertinent negative responses have been documented in the HPI. ROS Other: All systems not noted in ROS Statement are negative. Past Medical History Past Medical History: Asthma, Coronary Artery Disease (CAD), Cancer, Diabetes Mellitus, Hyperlipidemia, Hypertension, Osteoarthritis (OA), Thyroid Disorder Additional Past Medical History / Comment(s): R sided ovarian cancer- tx with chemo finished October 2017, heart murmer, sleeps sitting up- one doctor dx sleep apnea but another said no, no cpap used, constipation, hx anemia- recieved iron infusion, urinary incontinence, past frequent UTI's, lost vision in lt eye but has peripheral vision-stated "from a calcium clot" History of Any Multi-Drug Resistant Organisms: ESBL Date of last positivie culture/infection: 05/25/18 MDRO Source:: URINE Past Surgical History: Appendectomy, Cholecystectomy, Hysterectomy, Joint Replacement, Tonsillectomy Additional Past Surgical History / Comment(s): 06/2017 Exploratory laparotomy with ovarian tumor removal and lysis of adhesions, bilateral knee replacement, bilateral cataract removals, past(D&C. ), calcium clot lt eye, non functioning neurostimlator removed. Past Anesthesia/Blood Transfusion Reactions: No Reported Reaction Additional Past Anesthesia/Blood Transfusion Reaction / Comment(s): Unsure of family history, patient was adopted. Past Psychological History: Bipolar Smoking Status: Former smoker Past Alcohol Use History: Occasional Past Drug Use History: None Reported - Past Family History Father History Unknown: Yes Family Medical History: Unable to Obtain Additional Family Medical History / Comment(s): Pt is adopted and does not know parents medical history. General Exam Limitations: no limitations General appearance: alert, in no apparent distress Head exam: Present: normocephalic, other (abrasion noted to forehead with granulation tissue present, no evidence of infection) Eye exam: Present: normal appearance, PERRL, EOMI. Absent: scleral icterus, conjunctival injection, periorbital swelling ENT exam: Present: normal exam, mucous membranes moist, other (abrasion and crust noted to nasal bridge) Neck exam: Present: normal inspection, full ROM. Absent: tenderness, meningismus, lymphadenopathy Respiratory exam: Present: normal lung sounds bilaterally. Absent: respiratory distress, wheezes, rales, rhonchi, stridor Cardiovascular Exam: Present: regular rate, normal rhythm Course Vital Signs 09/30/18 12:36 Pulse Rate 58 L Respiratory 18 Rate Blood Pressure 116/56 O2 Sat by Pulse 99 Oximetry Medical Decision Making - Medical Decision Making 73-year-old female presents for suture removal. These were placed 8 days ago in the face. On presentation patient has significant crusting noted of the nasal bridge. She also has granulation tissue with abrasion present over the 4 head where the laceration is sutured. This crust was soaked with gauze and water. It did softened somewhat and I was able to remove 4 stitches. The note says there are 5 stitches placed however I removed all crusting cannot find the fifth stitch. It may have pulled out with another stitch or was mis-entered as 5 stitches instead of 4. I did remove all 8 stitches in the forehead without difficulty. Dr. Rascon also visualized the forehead, does agree that there is no infection at this time. Patient will finish her course of antibiotics. She'll return here if she has any worsening symptoms. Disposition Clinical Impression: Visit for suture removal Disposition: HOME SELF-CARE Condition: Good Instructions (If sedation given, give patient instructions): Laceration (ED) Additional Instructions: Please follow up with primary care in 1-2 days. Monitor for signs of infection and return if these occur. Return if you have any other worsening symptoms. Is patient prescribed a controlled substance at d/c from ED?: No Referrals: Linda Sanders MD [Primary Care Provider] - 1-2 days Time of Disposition: 13:26
[2018-09-30 13:28] VITALS: TEMP 98.3
== END 2018-09-30 13:30 | disposition home or self-care (01) ==
LOC: EC 12:28
DX: Z48.02 Encounter for removal of sutures (principal); J45.909 Unspecified asthma, uncomplicated; I25.10 Atherosclerotic heart disease of native coronary artery without angina pectoris; E11.9 Type 2 diabetes mellitus without complications; I10 Essential (primary) hypertension; E07.9 Disorder of thyroid, unspecified; M19.90 Unspecified osteoarthritis, unspecified site; F31.9 Bipolar disorder, unspecified; Z87.891 Personal history of nicotine dependence; Z88.0 Allergy status to penicillin; Z88.1 Allergy status to other antibiotic agents; Z91.048 Other nonmedicinal substance allergy status; Z79.4 Long term (current) use of insulin; Z79.51 Long term (current) use of inhaled steroids; Z79.890 Hormone replacement therapy; Z79.899 Other long term (current) drug therapy; Z87.19 Personal history of other diseases of the digestive system; Z96.653 Presence of artificial knee joint, bilateral; Z86.2 Personal history of diseases of the blood and blood-forming organs and certain disorders involving the immune mechanism; Z85.43 Personal history of malignant neoplasm of ovary; Z92.21 Personal history of antineoplastic chemotherapy; Z98.890 Other specified postprocedural states
CPT/HCPCS: 99281

== ENCOUNTER → 2018-10-25 | Outpatient (CLI) | payer MEDICARE ==
--- NOTE | 2018-10-25 11:34 | CT ---
EXAMINATION TYPE: CT ChestAbdPelvis w con DATE OF EXAM: 10/25/2018 COMPARISON: July 05, 2018 HISTORY: Follow up ovarian CA CT DLP: 2007.3 mGycm CONTRAST: CT scan of the chest, abdomen and pelvis is performed with Oral Contrast and with IV Contrast, patien t injected with 100 mL of Isovue 300. CT Chest: LUNGS: The lungs are clear and free of infiltrate or atelectasis. No pulmonary nodule or mass is det ected. No pleural effusion or CT evidence of interstitial lung disease. MEDIASTINUM: Thoracic aorta is of normal caliber. The heart is not enlarged there are enlarging lym ph nodes within the mediastinum. Within the region of the AP window there is a 1.3 cm lymph node whic h measured less than 1 cm previously. 2 high right paratracheal lymph nodes currently measure 1.4 cm versus 1 cm and 1.8 cm versus 1.0 cm previously. No additional adenopathy is present at this time. HILAR STRUCTURES: No evidence for mass. No hilar adenopathy is appreciated. OTHER: Dense mitral annular calcification. CONTRAST CT ABDOMEN AND PELVIS FINDINGS: LIVER/GB: Cholecystectomy clips. No space occupying hepatic lesion. Biliary tree is of normal caliber . PANCREAS: No inflammation. No distinct mass. SPLEEN: No splenic enlargement. No lesion seen. ADRENALS: Stable right adrenal mass with internal calcifications. No thickening. KIDNEYS/BLADDER: No hydronephrosis. No nephrolithiasis. No disctinct renal mass. BOWEL: Normal appendix. Normal bowel caliber. No inflammation. GENITAL ORGANS: Hysterectomy and oophorectomy changes. LYMPH NODES: No greater than 1cm abdominal or pelvic lymph nodes are appreciated. AORTA: No significant abnormality. OSSEOUS STRUCTURES: No significant abnormality is seen. OTHER: No significant additional abnormality is seen. IMPRESSION: 1. Increasing nonspecific mediastinal adenopathy. 2. No evidence for metastatic disease or recurrent disease within the abdomen or pelvis.
== END | disposition home or self-care (01) ==
LOC: RADCTMAIN 08:29
PROVIDERS: ATTEND Internal Medicine Hematology & Oncology
DX: C56.1 Malignant neoplasm of right ovary (principal); R59.0 Localized enlarged lymph nodes
CPT/HCPCS: 82565; 84520; 71260; 74177; 36415; Q9967

== ENCOUNTER 2018-12-31 19:55 | Emergency (ER) | payer MEDICARE ==
[2018-12-31 20:01] VITALS: BP 181/77; PULSE 81; RESP 18; TEMP 98.8
--- NOTE | 2018-12-31 20:25 | ED ---
Eye Problem HPI - General Chief complaint: Eye Problems Stated complaint: Sinus & eye pain Time Seen by Provider: 12/31/18 20:03 Source: patient, RN notes reviewed Mode of arrival: ambulatory Limitations: no limitations - History of Present Illness Initial comments: 73-year-old female presents emergency Department chief complaint of left eye pain and pressure. Patient states that she had surgery by Dr. Gudino secretary to the vice president for chronic glaucoma. Patient states that she had a surgery on Sunday at [facility]. Patient states that she's been using her drops and taking medications as directed. Patient states that today the pain progressively worsened to the point where she cannot tolerated. Patient states she even took her oxycodone with no relief. Patient states she has no vision in the left eye which has been chronic. Patient states she feels pressure in around her eye. - Related Data Home Medications Medication Instructions Recorded Confirmed Baclofen 10 mg PO BID 01/06/16 12/31/18 DULoxetine HCL [Cymbalta] 60 mg PO DAILY 01/06/16 12/31/18 oxyCODONE HCL [oxyCODONE HCL (IR)] 10 mg PO QID PRN 01/06/16 12/31/18 Insulin NPH Hum/Reg Insulin Hm 14 unit SQ AC-BRKFST 03/17/16 12/31/18 [NovoLIN 70-30 100 UNIT/ML VIAL] Insulin NPH Hum/Reg Insulin Hm 24 unit SQ AC-SUPPER 03/17/16 12/31/18 [NovoLIN 70-30 100 UNIT/ML VIAL] Levothyroxine Sodium [Synthroid] 100 mcg PO DAILY 07/25/17 12/31/18 Metoprolol Tartrate 25 mg PO BID 02/19/18 12/31/18 Pioglitazone HCl [Actos] 30 mg PO QAM 02/19/18 12/31/18 FLUoxetine HCL [PROzac] 10 mg PO DAILY 05/22/18 12/31/18 metFORMIN HCL [Glucophage] 500 mg PO BID 05/22/18 12/31/18 Aspirin EC [Ecotrin Low Dose] 81 mg PO DAILY 12/31/18 12/31/18 Atorvastatin Calcium [Lipitor] 40 mg PO HS 12/31/18 12/31/18 Previous Rx's Medication Instructions Recorded Lisinopril-Hctz 20-12.5 mg 1 tab PO DAILY #30 tab 05/29/18 [Zestoretic 20-12.5] Omeprazole [PriLOSEC] 20 mg PO AC-BID #60 cap 05/29/18 amLODIPine [Norvasc] 5 mg PO HS #0 05/29/18 acetaZOLAMIDE [Diamox Sequels] 500 mg PO BID #14 capsule.er 12/31/18 Allergies Allergy/AdvReac Type Severity Reaction Status Date / Time adhesive Allergy blisters Verified 12/31/18 20:40 amoxicillin Allergy Rash/Hives Verified 12/31/18 20:40 ciprofloxacin [From Cipro] Allergy Dyspnea Verified 12/31/18 20:40 ciprofloxacin HCl Allergy Dyspnea Verified 12/31/18 20:40 [From Cipro] Review of Systems ROS Statement: Those systems with pertinent positive or pertinent negative responses have been documented in the HPI. ROS Other: All systems not noted in ROS Statement are negative. Past Medical History Past Medical History: Asthma, Coronary Artery Disease (CAD), Cancer, Diabetes Mellitus, Hyperlipidemia, Hypertension, Osteoarthritis (OA), Thyroid Disorder Additional Past Medical History / Comment(s): R sided ovarian cancer- tx with chemo finished October 2017, heart murmer, sleeps sitting up- one doctor dx sleep apnea but another said no, no cpap used, constipation, hx anemia- recieved iron infusion, urinary incontinence, past frequent UTI's, lost vision in lt eye but has peripheral vision-stated "from a calcium clot" History of Any Multi-Drug Resistant Organisms: ESBL Date of last positivie culture/infection: 05/25/18 MDRO Source:: URINE Past Surgical History: Appendectomy, Cholecystectomy, Hysterectomy, Joint Replacement, Tonsillectomy Additional Past Surgical History / Comment(s): 06/2017 Exploratory laparotomy with ovarian tumor removal and lysis of adhesions, bilateral knee replacement, bilateral cataract removals, past(D&C. ), calcium clot lt eye, non functioning neurostimlator removed. glaucoma surgery Past Anesthesia/Blood Transfusion Reactions: No Reported Reaction Additional Past Anesthesia/Blood Transfusion Reaction / Comment(s): Unsure of family history, patient was adopted. Past Psychological History: Bipolar Smoking Status: Former smoker Past Alcohol Use History: Occasional Past Drug Use History: None Reported - Past Family History Father History Unknown: Yes Family Medical History: Unable to Obtain Additional Family Medical History / Comment(s): Pt is adopted and does not know parents medical history. General Exam Limitations: no limitations General appearance: alert, in no apparent distress Head exam: Present: atraumatic, normocephalic, normal inspection Eye exam: Present: EOMI, conjunctival injection (Mild left with subconjunctival hemorrhage), periorbital swelling (Mild left). Absent: normal appearance, PERRL (Left eye is fixed mildly dilated), scleral icterus ENT exam: Present: normal exam, normal oropharynx, mucous membranes moist, TM's normal bilaterally Neck exam: Present: normal inspection, full ROM. Absent: tenderness, meningismus, lymphadenopathy Respiratory exam: Present: normal lung sounds bilaterally. Absent: respiratory distress, wheezes, rales, rhonchi, stridor Cardiovascular Exam: Present: regular rate, normal rhythm, normal heart sounds. Absent: systolic murmur, diastolic murmur, rubs, gallop, clicks Neurological exam: Present: alert, oriented X3, CN II-XII intact, reflexes normal. Absent: motor sensory deficit Skin exam: Present: warm, dry, intact, normal color. Absent: rash Course Vital Signs 12/31/18 19:56 Temperature 98.8 F Pulse Rate 81 Respiratory 18 Rate Blood Pressure 181/77 O2 Sat by Pulse 98 Oximetry Medical Decision Making - Medical Decision Making 73-year-old female presented for left eye pain. Patient's pressure in her left eye was 58. I did contact her surgeon though his partner was continuous mining machine lode miner who revealed patient's surgery, chart and advised the patient to restart Brimonide in which she recently discontinued. He states that this is common to happen after surgery with us shunt as it takes a while to seat into place. Patient will also be placed on Diamox 500 mg twice a day patient will follow-up with secretary to the vice president tomorrow return for any worsening symptoms Disposition Clinical Impression: Ocular pain, left eye, Chronic glaucoma Disposition: HOME SELF-CARE Condition: Stable Instructions (If sedation given, give patient instructions): Glaucoma (ED) Additional Instructions: Please return to the Emergency Department if symptoms worsen or any other concerns. Restart Brimonide eyedrops as directed Prescriptions: acetaZOLAMIDE [Diamox Sequels] 500 mg PO BID #14 capsule.er Is patient prescribed a controlled substance at d/c from ED?: No Referrals: Linda Sanders MD [Primary Care Provider] - 1-2 days Time of Disposition: 20:53
[2018-12-31] MEDS ORDERED: HYDROmorphone 1 MG/ML 1 ML SYRINGE IM STA (20:49)
== END 2018-12-31 21:05 | disposition home or self-care (01) ==
LOC: EC 19:55
DX: H57.12 Ocular pain, left eye (principal); H40.9 Unspecified glaucoma; I25.10 Atherosclerotic heart disease of native coronary artery without angina pectoris; E11.9 Type 2 diabetes mellitus without complications; E78.5 Hyperlipidemia, unspecified; I10 Essential (primary) hypertension; M19.90 Unspecified osteoarthritis, unspecified site; E07.9 Disorder of thyroid, unspecified; D64.9 Anemia, unspecified; Z85.43 Personal history of malignant neoplasm of ovary; F31.9 Bipolar disorder, unspecified; Z87.891 Personal history of nicotine dependence; Z79.4 Long term (current) use of insulin; Z79.82 Long term (current) use of aspirin; Z79.890 Hormone replacement therapy; Z79.899 Other long term (current) drug therapy; Z88.0 Allergy status to penicillin; Z88.1 Allergy status to other antibiotic agents; Z91.048 Other nonmedicinal substance allergy status; Z96.653 Presence of artificial knee joint, bilateral
CPT/HCPCS: 99283; 96372; J1170

== ENCOUNTER → 2019-01-06 | Outpatient (CLI) | payer MEDICARE ==
--- NOTE | 2019-01-09 07:29 | CT ---
EXAMINATION TYPE: CT abdomen pelvis wo con DATE OF EXAM: 01/08/2019 HISTORY: 2 mo f/u ovarian ca. Labs GFR 44, C-1.23 B-30. Consult w/Dr. Grove, recommended w/out cont rast, oral only CT DLP: 1130.60 mGycm. Automated Exposure Control for Dose Reduction was Utilized. TECHNIQUE: CT scan of the abdomen and pelvis is performed with oral but without IV contrast. COMPARISON: CT chest abdomen and pelvis October 25, 2018 and older CTs. FINDINGS: Within the limitations of a non-contrast study, the following observations are made. LUNG BASES: Some patchy bibasilar linear scarring and/or atelectasis is present. Calcifications the l evel of mitral valve are present. LIVER/GB: Cholecystectomy clips are redemonstrated. Mild prominence of intrahepatic biliary duct up t o 12 mm coronal image 49 is not changed from most recent prior. PANCREAS: No significant abnormality is seen. SPLEEN: No significant abnormality is seen. ADRENALS: Persistent oval well-circumscribed right adrenal mass containing soft tissue, fat, and calc ification felt stable from prior studies measuring 3.6 x 4.6 cm image 25 consistent with myolipoma. KIDNEYS: No significant abnormality is seen. BOWEL: Oral contrast reaches level of right colon. No suspicious small or large bowel dilatation. Pro minence of fecal material throughout the colon and rectum. GENITAL ORGANS: Uterus is surgically absent. Neither ovary is seen suspected surgically absent. Overl dasia vertical scar anterior abdominal wall of the lower abdomen and pelvis is noted. LYMPH NODES: No greater than 1cm abdominal or pelvic lymph nodes are appreciated. OSSEOUS STRUCTURES: Moderate to advanced compression fracture at T12 level is redemonstrated. Persist ent slight grade 1 anterolisthesis L4 on L5. Persistent moderate to advanced disc space narrowing L5- S1 level. OTHER: Moderate calcified plaque of the aorta extends into branch vessels. Persistent dependent fluid posterior subcutaneous tissue of the lumbar spine axial image 44 for reference. IMPRESSION: No suspicious new mass or adenopathy to suggest neoplastic recurrence. No significant eric nge from most recent CT.
== END | disposition home or self-care (01) ==
LOC: RADCTMAIN 14:55
PROVIDERS: ATTEND Internal Medicine Hematology & Oncology
DX: C56.1 Malignant neoplasm of right ovary (principal)
CPT/HCPCS: 36415; 71250; 74176; 82565; 84520

== ENCOUNTER → 2019-01-21 | Outpatient (CLI) | payer MEDICARE ==
--- NOTE | 2019-01-21 16:20 | CT ---
EXAMINATION TYPE: CT chest wo con DATE OF EXAM: 01/21/2019 COMPARISON: 10/25/2018 and 11/24/2015 CTs. HISTORY: Malignant, neoplasm of Rt Ovary. Surgical history includes appendectomy, cholecystectomy, an d hysterectomy. CT DLP: 549.3 mGycm. Automated Exposure Control for Dose Reduction was Utilized. TECHNIQUE: CT scan of the thorax is performed without IV contrast. FINDINGS: LUNGS: Patchy bibasilar subsegmental dependent atelectasis is noted as well as chronic areas of linea r pleural parenchymal scarring. No new suspicious mass or nodule is seen within the lungs. No new foc al consolidation is present. There is no pleural effusion or pneumothorax seen. The tracheobronchi al tree is patent. MEDIASTINUM: The previously seen enlarged mediastinal lymph nodes have decreased in size with a right paratracheal lymph node previously measuring 1.4 cm in short axis and currently measuring 1.1 cm and a previously seen additional right paratracheal lymph node measuring 1.9 cm in long axis on the prio r examination and currently measuring 1.6 cm in long axis. No cardiomegaly or pericardial effusion is seen. There is enlargement of the main pulmonary artery me asuring 3.3 cm, that may clinically correlate with pulmonary arterial hypertension. Severe three-vess el coronary artery calcifications and mitral annular calcifications are seen. Severe atherosclerosis of the thoracic aorta is also noted. Heart is enlarged without pericardial effusion. There is a small hiatal hernia present. OTHER: There is a macroscopic fat-containing adrenal lesion also containing multiple dystrophic calci fications. This measures 4.5 x 3.5 cm and is most compatible with an adrenal myelolipoma. This is sta ble in size from the prior 10/25/2018 and seen on exams dating back to the lumbar spine CT dated 2015, also unchanged in size from that examination. T12 compression deformity is stable as well as mo derate multilevel degenerative disc disease of the thoracic spine with bridging anterior osteophytes suggesting diffuse idiopathic skeletal hyperostosis. Retropulsion of the superior endplate of T12 is also stable. IMPRESSION: 1. Improvement of the previously seen mediastinal adenopathy. 2. No new evidence of metastasis within the chest. 3. Stable macroscopic fat-containing right adrenal gland mass dating back to 2015, presumably benign and likely a myelolipoma. 4. Unchanged compression deformity of the T12 vertebral body with retropulsion of the superior endpla te creating at least mild spinal canal stenosis.
== END | disposition home or self-care (01) ==
LOC: RADCTMAIN 13:13
PROVIDERS: ATTEND Internal Medicine Hematology & Oncology
DX: C56.1 Malignant neoplasm of right ovary (principal); R59.0 Localized enlarged lymph nodes; E27.8 Other specified disorders of adrenal gland; Z88.0 Allergy status to penicillin
CPT/HCPCS: 71250

== ENCOUNTER → 2019-03-17 | Outpatient (CLI) | payer MEDICARE ==
--- NOTE | 2019-03-17 19:35 | BD ---
EXAMINATION TYPE: Axial Bone Density DATE OF EXAM: 03/17/2019 COMPARISON: 12/01/2015 CLINICAL HISTORY: 73-year-old female asymptomatic postmenopausal screening Height: 60.7 IN Weight: 245 LBS FRAX RISK QUESTIONS: History of Fracture in Adulthood: YES NASAL BONES RISK FACTORS HISTORY OF: Spine Fracture: T8 PT UNSURE WHEN Active: MODERATE Postmenopausal woman: AGE 47 MEDICATIONS: Thyroid Medications: YES Which medication: Levothyroxine How Lon+ YEARS Additional Medications: VIT D, LEVOTHYROXINE, BLOOD PRESSURE MEDS, INSULIN, DIABETIC MEDS, ANTI DEPRE SSANTS, CRANBERRY, CBD OIL, MUSCLE RELAXER, OXYCODONE, TURMERIC Additional History: CHEMOTHERAPY PT HAD OVARIAN CANCER EXAM MEASUREMENTS: Bone mineral densitometry was performed using the [employer] System. PT STATES SHE HAD A THORACIC FX. NO LUMBAR FX. Bone mineral density as measured about the Lumbar spine is: ----- L1-L4(G/cm2): 1.168 T Score Values are as follows: ----- L2: 1.0 ----- L3: -0.6 ----- L4: -0.6 ----- L1-L4: -0.1 Bone mineral density BASELINE Bone mineral density about the R hip (g/cm2): 0.865 Bone mineral density about the L hip (g/cm2): 0.985 T Score values are as follows: -----R Neck: -1.2 -----L Neck: -0.4 -----R Total: -0.6 -----L Total: -0.2 Bone mineral density has: Increased 1.7% since study of: 12/01/2015 IMPRESSION: Osteopenia (T Score between -2.5 and -1). There is slightly increased risk of fracture and the patient may be considered for treatment. Re-Screen 2-5 years. NOTE: T-SCORE=SD OF THE YOUNG ADULT MEAN.
--- NOTE | 2019-03-19 08:52 | MM ---
Reason for exam: screening (asymptomatic). Last mammogram was performed 2 years and 3 months ago. History: Patient is postmenopausal and is nulliparous. Physical Findings: A clinical breast exam by your physician is recommended on an annual basis and results should be correlated with mammographic findings. MG 3D Screening Mammo W/Cad Bilateral CC and MLO view(s) were taken. Prior study comparison: December 14, 2016, bilateral MG 3d screening mammo w/cad. December 01, 2015, bilateral MG 3d screening mammo w/cad. Stable focal asymmetry right breast. No significant changes when compared with prior studies. ASSESSMENT: Benign, BI-RAD 2 RECOMMENDATION: Routine screening mammogram of both breasts in 1 year.
== END | disposition home or self-care (01) ==
LOC: RADMAMWWP 13:50
PROVIDERS: ATTEND Internal Medicine
DX: Z12.31 Encounter for screening mammogram for malignant neoplasm of breast (principal); M85.80 Other specified disorders of bone density and structure, unspecified site; Z78.0 Asymptomatic menopausal state
CPT/HCPCS: 77063; 77067; 77080

== ENCOUNTER → 2019-04-11 | Outpatient (CLI) | payer MEDICARE ==
--- NOTE | 2019-04-11 14:51 | CT ---
EXAMINATION TYPE: CT ChestAbdPelvis wo con DATE OF EXAM: 04/11/2019 COMPARISON: Most recent CTs from December 2018 and older CTs HISTORY: Ovarian cancer. CT DLP: 1526.5 mGycm. Automated Exposure Control for Dose Reduction was Utilized. TECHNIQUE: CT scan of the thorax, abdomen and pelvis is performed without IV contrast. FINDINGS: LUNGS: Some moderate scattered parenchymal fibrotic changes in both bases remains present. No new con cerning nodules or masses. No pleural effusion or pneumothorax. MEDIASTINUM: There are suspected slightly enlargingr intrathoracic lymph nodes. For reference a prev ascular lymph node measures 1.8 x 1.1 cm axial image 15 versus 1.5 x 0.7 cm recent prior study image 17. For reference a paratracheal lymph node measures 1.9 x 1.2 cm current study image 16 versus 1.3 x 1.0 cm most recent prior study axial image 19. Main pulmonary artery measures 3.7 cm diameter axial image 19, CT findings consistent with underlying pulmonary artery hypertension. Dense calcification l evel of mitral valve redemonstrated. Heart size stable and upper limits of normal. Coronary artery ca lcification is redemonstrated which is noted marked for underlying coronary artery disease. OTHER: Markedly small size or atrophic thyroid is redemonstrated. LIVER/GB: Cholecystectomy clips are redemonstrated. PANCREAS: No significant abnormality is seen. SPLEEN: No significant abnormality is seen. ADRENALS: Redemonstration of right adrenal mass containing soft tissue fat and calcification measurin g 4.6 x 3.1 cm on image 52 consistent with myolipoma is stable. KIDNEYS: No significant abnormality is seen. BOWEL: Oral contrast does not reach colonic level making evaluation distal bowel slightly suboptimal. No suspicious small or large bowel dilatation. Some prominence of fecal material throughout the colo n. GENITAL ORGANS: Uterus is surgically absent. LYMPH NODES: No greater than 1cm abdominal or pelvic lymph nodes are appreciated. OSSEOUS STRUCTURES: Progression of compression fracture now advanced at T12 level with superior scler osis. Multilevel spondylolisthesis lower lumbar spine. Subtle sclerotic focus superior L3 level image 71 unchanged from oldest prior. Bridging osteophytes in the anterior thoracic spine are redemonstrat ed. Worsening facet arthropathy in the mid to lower lumbar spine. OTHER: Moderate calcified plaque of the aorta extends into branch vessels. Persistent dependent fluid subcutaneous tissue of the lower lumbar spine axial image 70 for reference. IMPRESSION: There are thought enlarging thoracic lymph nodes. Correlate clinically as worsening dise ase cannot be excluded.
== END | disposition home or self-care (01) ==
LOC: RADCTMAIN 12:25
PROVIDERS: ATTEND Internal Medicine Hematology & Oncology
DX: R59.0 Localized enlarged lymph nodes (principal); C56.1 Malignant neoplasm of right ovary; Z88.1 Allergy status to other antibiotic agents
CPT/HCPCS: 36415; 71250; 74176; 82565; 84520

== ENCOUNTER → 2019-07-18 | Outpatient (CLI) | payer MEDICARE ==
--- NOTE | 2019-07-18 17:07 | CT ---
EXAMINATION TYPE: CT ChestAbdPelvis w con DATE OF EXAM: 07/18/2019 INDICATION: Ovarian cancer. COMPARISON: CT DLP: 2471.7 mGycm CONTRAST: Performed with Oral Contrast and with IV Contrast, patient injected with 80 mL of Isovue M300. TECHNIQUE: Axial images at 5 mm thick sections. Reconstructed images in the coronal plane. Delayed images through the kidneys. FINDINGS: CT CHEST: Portion of the thyroid visualized is normal. No suspicious lung nodules or focal infiltrates are present. There is a 1.1 cm pretracheal lymph node. A right peribronchial lymph node measures 1.1 cm. The ascending aorta diameter at the level of the main pulmonary artery is 3.4 cm. The main pulmonary artery diameter at the bifurcation is 3.5 cm. There may be some dense cardiac valve calcification at the mitral valve. Coronary artery calcification is present. CT ABDOMEN: Liver: Normal Spleen: Normal Pancreas: Normal Adrenal glands: Right adrenal gland is enlarged heterogenous and contains scattered small calcificati ons. Prior hemorrhage could be considered. This measures 2.6 cm in transverse dimension. This was pre sent previously. Left adrenal gland appears normal. Gallbladder: Surgically absent Kidneys: No discrete renal masses are evident.. No hydronephrosis is present. No cysts are present. Delayed images were obtained through the kidneys, which remain unremarkable. Aorta: Vascular calcification is within the aorta. Inferior vena cava: Normal. CT PELVIS: Loops of bowel within the abdomen and pelvis are normal. There are loops of bowel which are incom pletely distended or lack oral contrast limiting their evaluation. Appendix: Appears to be surgically absent. Correlate with the history. Urinary bladder: Decompressed. This may account for the apparent thickening of the urinary bladder wa lls. Genitourinary structures: Uterus and ovaries are surgically absent. No suspicious recurrent masses om ental caking or ascites is evident. Osseous structures: No suspicious lytic or sclerotic lesions are evident. IMPRESSIONS: 1. No suspicious changes to suggest recurrent or metastatic ovarian cancer within the abdomen. 2. There are some enlarged mediastinal lymph nodes present. These are stable to minimally diminished in size from prior exam. 3. Stable right adrenal mass.
== END | disposition home or self-care (01) ==
LOC: RADCTMAIN 12:36
PROVIDERS: ATTEND Internal Medicine Hematology & Oncology
DX: Z03.89 Encounter for observation for other suspected diseases and conditions ruled out (principal); E27.9 Disorder of adrenal gland, unspecified; C56.1 Malignant neoplasm of right ovary; R59.0 Localized enlarged lymph nodes; Z88.0 Allergy status to penicillin; Z88.1 Allergy status to other antibiotic agents
CPT/HCPCS: 82565; 84520; 71260; 74177; 36415; Q9967 ×2

== ENCOUNTER 2019-08-09 14:39 | Inpatient (IN) | payer MEDICARE ==
[2019-08-09 15:50] LABS: Anisocytosis Slight; Basophils # (A) 0.1 k/uL (0-0.2); Basophils % (A) 1 %; Eosinophils # (A) 0.2 k/uL (0-0.7); Eosinophils % (A) 3 %; HCT 37.8 % (34.0-46.0); HGB 11.4 gm/dL (11.4-16.0); Hypochromasia Slight; Lymphocytes # (A) 0.9 k/uL (1.0-4.8); Lymphocytes % (A) 14 %; MCH 25.8 pg (25.0-35.0); MCHC 30.2 g/dL (31.0-37.0); MCV 85.2 fL (80.0-100.0); Mean Platelet Volume 9.2; Monocytes # (A) 0.5 k/uL (0-1.0); Monocytes % (A) 8 %; Neutrophils # (A) 4.7 k/uL (1.3-7.7); Neutrophils % (A) 72 %; Platelet Count 128 k/uL (150-450); RBC 4.43 m/uL (3.80-5.40); RDW 16.7 % (11.5-15.5); WBC 6.5 k/uL (3.8-10.6)
--- NOTE | 2019-08-09 16:03 | XR ---
EXAMINATION TYPE: XR chest 2V DATE OF EXAM: 08/09/2019 COMPARISON: 09/22/2018 HISTORY: Fall. Pain. TECHNIQUE: 2 views FINDINGS: There is no heart failure nor confluent pneumonic infiltrate. Thoracic aorta is atheromatou s. There are chest leads. Costophrenic angles are clear. Thoracic spine is intact. IMPRESSION: No active cardiopulmonary disease. No significant change.
[2019-08-09 16:09] LABS: Albumin 3.7 g/dL (3.5-5.0); Calcium 9.2 mg/dL (8.4-10.2); Potassium 4.7 mmol/L (3.5-5.1); Total Bilirubin 0.6 mg/dL (0.2-1.3); Total Protein 6.8 g/dL (6.3-8.2)
[2019-08-09 16:18] LABS: Prothrombin Time 10.8 sec (9.0-12.0)
[2019-08-09 16:21] LABS: Partial Thromboplastin Time 19.4 sec (22.0-30.0)
[2019-08-09] MEDS ORDERED: ACETAMINOPHEN TAB 325 MG TAB PO PRN (16:35)
[2019-08-09] MEDS ORDERED: MORPHINE SULFATE 4 MG/ML SYRINGE IV PRN (16:35)
[2019-08-09] MEDS ORDERED: NITROGLYCERIN SL TABS 0.4 MG TAB SUBLINGUAL PRN (16:35)
[2019-08-09] MEDS ORDERED: NALOXONE 0.4 MG/ML 1 ML VIAL IV PRN (16:35)
--- NOTE | 2019-08-09 16:43 | ED ---
General Adult HPI - General Chief complaint: Chest Pain Stated complaint: chest pain Time Seen by Provider: 08/09/19 15:27 Source: patient, EMS, RN notes reviewed, old records reviewed Mode of arrival: EMS Limitations: no limitations - History of Present Illness Initial comments: 74-year-old female resents for evaluation of right shoulder pain, which has been intermittent for several days. Denies central chest pain. She's had some mild dyspnea associated with this shoulder pain. No abdominal pain. She had recent stress test and was told that she would require heart catheterization. She is scheduled for heart catheterization on Sunday of this upcoming week. She denies lower extremity pain or swelling. Denies jaw pain. Denies left arm p ain. No known history of coronary artery disease, remote history of tobacco use, she is a current diabetic with history of hypertension. - Related Data Home Medications Medication Instructions Recorded Confirmed Baclofen 10 mg PO BID 01/06/16 12/31/18 DULoxetine HCL [Cymbalta] 60 mg PO DAILY 01/06/16 12/31/18 oxyCODONE HCL [oxyCODONE HCL (IR)] 10 mg PO QID PRN 01/06/16 12/31/18 Insulin NPH Hum/Reg Insulin Hm 14 unit SQ AC-BRKFST 03/17/16 12/31/18 [NovoLIN 70-30 100 UNIT/ML VIAL] Insulin NPH Hum/Reg Insulin Hm 24 unit SQ AC-SUPPER 03/17/16 12/31/18 [NovoLIN 70-30 100 UNIT/ML VIAL] Levothyroxine Sodium [Synthroid] 100 mcg PO DAILY 07/25/17 12/31/18 Metoprolol Tartrate 25 mg PO BID 02/19/18 12/31/18 Pioglitazone HCl [Actos] 30 mg PO QAM 02/19/18 12/31/18 FLUoxetine HCL [PROzac] 10 mg PO DAILY 05/22/18 12/31/18 metFORMIN HCL [Glucophage] 500 mg PO BID 05/22/18 12/31/18 Aspirin EC [Ecotrin Low Dose] 81 mg PO DAILY 12/31/18 12/31/18 Atorvastatin Calcium [Lipitor] 40 mg PO HS 12/31/18 12/31/18 Previous Rx's Medication Instructions Recorded Lisinopril-Hctz 20-12.5 mg 1 tab PO DAILY #30 tab 05/29/18 [Zestoretic 20-12.5] Omeprazole [PriLOSEC] 20 mg PO AC-BID #60 cap 05/29/18 amLODIPine [Norvasc] 5 mg PO HS #0 05/29/18 acetaZOLAMIDE [Diamox Sequels] 500 mg PO BID #14 capsule.er 12/31/18 Allergies Allergy/AdvReac Type Severity Reaction Status Date / Time adhesive Allergy blisters Verified 08/09/19 14:42 amoxicillin Allergy Rash/Hives Verified 08/09/19 14:42 ciprofloxacin [From Cipro] Allergy Dyspnea Verified 08/09/19 14:42 ciprofloxacin HCl Allergy Dyspnea Verified 08/09/19 14:42 [From Cipro] Review of Systems ROS Statement: Those systems with pertinent positive or pertinent negative responses have been documented in the HPI. ROS Other: All systems not noted in ROS Statement are negative. Past Medical History Past Medical History: Asthma, Coronary Artery Disease (CAD), Cancer, Diabetes Mellitus, Hyperlipidemia, Hypertension, Osteoarthritis (OA), Thyroid Disorder Additional Past Medical History / Comment(s): R sided ovarian cancer- tx with chemo finished October 2017, heart murmer, sleeps sitting up- one doctor dx sleep apnea but another said no, no cpap used, constipation, hx anemia- recieved iron infusion, urinary incontinence, past frequent UTI's, lost vision in lt eye but has peripheral vision-stated "from a calcium clot" History of Any Multi-Drug Resistant Organisms: ESBL Date of last positivie culture/infection: 05/26/19 MDRO Source:: URINE Past Surgical History: Appendectomy, Cholecystectomy, Hysterectomy, Joint Replacement, Tonsillectomy Additional Past Surgical History / Comment(s): 06/2017 Exploratory laparotomy with ovarian tumor removal and lysis of adhesions, bilateral knee replacement, bilateral cataract removals, past(D&C. ), calcium clot lt eye, non functioning neurostimlator removed. glaucoma surgery Past Anesthesia/Blood Transfusion Reactions: No Reported Reaction Additional Past Anesthesia/Blood Transfusion Reaction / Comment(s): Unsure of family history, patient was adopted. Past Psychological History: Bipolar Smoking Status: Former smoker Past Alcohol Use History: Occasional Past Drug Use History: None Reported - Past Family History Father History Unknown: Yes Family Medical History: Unable to Obtain Additional Family Medical History / Comment(s): Pt is adopted and does not know parents medical history. General Exam Limitations: no limitations General appearance: alert, in no apparent distress Head exam: Present: atraumatic, normocephalic Eye exam: Present: normal appearance, PERRL ENT exam: Present: normal exam Neck exam: Present: normal inspection. Absent: tenderness Respiratory exam: Present: normal lung sounds bilaterally. Absent: respiratory distress Cardiovascular Exam: Present: normal rhythm, bradycardia GI/Abdominal exam: Present: soft. Absent: distended, tenderness, guarding Extremities exam: Present: normal inspection, normal capillary refill. Absent: pedal edema Neurological exam: Present: alert, oriented X3, CN II-XII intact. Absent: motor sensory deficit Psychiatric exam: Present: normal affect, normal mood Skin exam: Present: warm, dry, intact. Absent: cyanosis, diaphoretic Course Vital Signs 08/09/19 08/09/19 14:42 16:15 Temperature 98.6 F Pulse Rate 54 L 56 L Respiratory 18 16 Rate Blood Pressure 164/59 148/70 O2 Sat by Pulse 98 99 Oximetry EKG Findings - EKG Comments: EKG Findings:: EKG: Sinus bradycardia, rate of 59, VA interval 164, QRS duration 124, QTC 455, no ST segment elevation, right bundle-branch block Medical Decision Making - Medical Decision Making 74-year-old female presenting with atypical chest pain. EKG showing sinus bradycardia with no ST segment elevation. Chest x-ray negative for focal pneumonia or acute findings. Normal CBC. Normal electrolytes. Negative troponin, mildly elevated BNP 1300. Patient take an aspirin prior to arrival. Symptoms resolved while in the emergency department. Given the plan for recent heart catheterization, we'll keep this patient in observation for cardiology consultation. Case discussed with the admitting physician Dr. Martel - Lab Data Result diagrams: 08/09/19 15:11 08/09/19 15:11 Lab Results 08/09/19 08/09/19 08/09/19 Range/Units 15:11 15:11 15:11 WBC 6.5 (3.8-10.6) k/uL RBC 4.43 (3.80-5.40) m/uL Hgb 11.4 (11.4-16.0) gm/dL Hct 37.8 (34.0-46.0) % MCV 85.2 (80.0-100.0) fL MCH 25.8 (25.0-35.0) pg MCHC 30.2 L (31.0-37.0) g/dL RDW 16.7 H (11.5-15.5) % Plt Count 128 L (150-450) k/uL Neutrophils % 72 % Lymphocytes % 14 % Monocytes % 8 % Eosinophils % 3 % Basophils % 1 % Neutrophils # 4.7 (1.3-7.7) k/uL Lymphocytes # 0.9 L (1.0-4.8) k/uL Monocytes # 0.5 (0-1.0) k/uL Eosinophils # 0.2 (0-0.7) k/uL Basophils # 0.1 (0-0.2) k/uL Hypochromasia Slight Anisocytosis Slight PT (9.0-12.0) sec INR (<1.2) APTT (22.0-30.0) sec Sodium 135 L (137-145) mmol/L Potassium 4.7 (3.5-5.1) mmol/L Chloride 101 (98-107) mmol/L Carbon Dioxide 27 (22-30) mmol/L Anion Gap 7 mmol/L BUN 28 H (7-17) mg/dL Creatinine 0.97 (0.52-1.04) mg/dL Est GFR (CKD-EPI)AfAm 66 (>60 ml/min/1.73 sqM) Est GFR (CKD-EPI)NonAf 58 (>60 ml/min/1.73 sqM) Glucose 134 H (74-99) mg/dL Calcium 9.2 (8.4-10.2) mg/dL Magnesium 2.0 (1.6-2.3) mg/dL Total Bilirubin 0.6 (0.2-1.3) mg/dL AST 22 (14-36) U/L ALT 14 (4-34) U/L Alkaline Phosphatase 111 (38-126) U/L Troponin I (0.000-0.034) ng/mL NT-Pro-B Natriuret Pep 1300 pg/mL Total Protein 6.8 (6.3-8.2) g/dL Albumin 3.7 (3.5-5.0) g/dL Lipase 99 (23-300) U/L 02/08/20 02/08/20 Range/Units 15:11 15:11 WBC (3.8-10.6) k/uL RBC (3.80-5.40) m/uL Hgb (11.4-16.0) gm/dL Hct (34.0-46.0) % MCV (80.0-100.0) fL MCH (25.0-35.0) pg MCHC (31.0-37.0) g/dL RDW (11.5-15.5) % Plt Count (150-450) k/uL Neutrophils % % Lymphocytes % % Monocytes % % Eosinophils % % Basophils % % Neutrophils # (1.3-7.7) k/uL Lymphocytes # (1.0-4.8) k/uL Monocytes # (0-1.0) k/uL Eosinophils # (0-0.7) k/uL Basophils # (0-0.2) k/uL Hypochromasia Anisocytosis PT 10.8 (9.0-12.0) sec INR 1.0 (<1.2) APTT 19.4 L (22.0-30.0) sec Sodium (137-145) mmol/L Potassium (3.5-5.1) mmol/L Chloride (98-107) mmol/L Carbon Dioxide (22-30) mmol/L Anion Gap mmol/L BUN (7-17) mg/dL Creatinine (0.52-1.04) mg/dL Est GFR (CKD-EPI)AfAm (>60 ml/min/1.73 sqM) Est GFR (CKD-EPI)NonAf (>60 ml/min/1.73 sqM) Glucose (74-99) mg/dL Calcium (8.4-10.2) mg/dL Magnesium (1.6-2.3) mg/dL Total Bilirubin (0.2-1.3) mg/dL AST (14-36) U/L ALT (4-34) U/L Alkaline Phosphatase (38-126) U/L Troponin I <0.012 (0.000-0.034) ng/mL NT-Pro-B Natriuret Pep pg/mL Total Protein (6.3-8.2) g/dL Albumin (3.5-5.0) g/dL Lipase (23-300) U/L Disposition Clinical Impression: Chest pain Disposition: ADMITTED IP TO THIS HOSP Condition: Stable Is patient prescribed a controlled substance at d/c from ED?: No Referrals: Linda Sanders MD [Primary Care Provider] - 1-2 days Decision to Admit Reason: Admit from EC Decision Date: 08/09/19 Decision Time: 16:49
[2019-08-09 19:47] LABS: Glucose,Whole Blood 195 mg/dL (75-99)
[2019-08-09] MEDS ORDERED: ATORVASTATIN 40 MG TAB PO SCH (21:30)
[2019-08-09] MEDS: amLODIPine 5 MG TAB PO SCH (23:08)
[2019-08-09] MEDS: METOPROLOL TARTRATE 25 MG TAB PO SCH (23:08)
[2019-08-09] MEDS: PANTOPRAZOLE 40 MG TABLET PO SCH (23:08)
[2019-08-10] MEDS: BACLOFEN 10 MG TAB PO PRN ×3 (02:51→22:54)
[2019-08-10] MEDS: LEVOTHYROXINE 100 MCG TAB PO SCH (06:21)
[2019-08-10] MEDS ORDERED: ATORVASTATIN 80 MG TAB PO STA (08:22)
[2019-08-10] MEDS ORDERED: ALPRAZolam 0.25 MG TAB PO PRN (08:22)
[2019-08-10] MEDS ORDERED: ASPIRIN 325 MG TAB PO STA (08:22)
[2019-08-10] MEDS ORDERED: ALPRAZolam 0.5 MG TAB PO PRN (08:22)
[2019-08-10] MEDS ORDERED: SODIUM CHLORIDE 0.9% 1,000 ML in EMPTY BAG 1 BAG IV ONE (08:22)
[2019-08-10] MEDS ORDERED: ASPIRIN 325 MG TAB PO SCH (09:00)
[2019-08-10] MEDS ORDERED: ASPIRIN 81 MG PO SCH (09:00)
[2019-08-10] MEDS: DULoxetine HCL 60 MG CAPSULE.DR PO SCH (09:28)
[2019-08-10] MEDS: PANTOPRAZOLE 40 MG TABLET PO SCH ×2 (09:28→16:50)
[2019-08-10] MEDS: LISINOPRIL-HCTZ 20-12.5 MG 1 EACH TAB PO SCH (09:29)
[2019-08-10] MEDS: FLUoxetine HCL 10 MG CAP PO SCH (09:29)
[2019-08-10] MEDS: METOPROLOL TARTRATE 25 MG TAB PO SCH ×2 (09:30→20:29)
[2019-08-10 09:54] LABS: Glucose,Whole Blood 161 mg/dL (75-99)
[2019-08-10] MEDS ORDERED: ARTIFICIAL TEARS-HYPROMELLOSE DROPS 15 ML BTL BOTH EYES PRN (10:33)
--- NOTE | 2019-08-10 10:51 | CONS ---
CONSULTATION HISTORY OF PRESENT ILLNESS: Shital is a 74-year-old lady who presented to us recently in the outpatient setting with symptoms of shortness of breath and had a stress test that showed ischemia in LAD distribution and was to undergo cardiac catheterization on Sunday. She comes in complaining of chest pain that is mild intensity right-sided. She has had intermittent episodes and it responded to sublingual nitroglycerin. She was concerned and came to the ER and is admitted. Her EKG shows sinus rhythm with right bundle branch block. Three sets of cardiac enzymes have been negative and at the time of my evaluation this morning, she is pain-free and hemodynamically stable. PAST MEDICAL HISTORY: Significant for hypertension, dyslipidemia, hypothyroidism, and insulin-requiring diabetes. MEDICATIONS: Medications at home include Glucophage, Norvasc, insulin, Lipitor, Actos, Prilosec, Lasix, metoprolol, Synthroid, insulin, Cymbalta. ALLERGIES: ALLERGY TO AMOXICILLIN AND CIPRO. FAMILY HISTORY: Negative for premature coronary artery disease. SOCIAL HISTORY: Negative for current smoking, EtOH abuse or drug abuse. REVIEW OF SYSTEMS: HEENT is unremarkable. Cardiac as described above. RESPIRATORY as described above. GI negative. GENITOURINARY negative. ALLERGY/IMMUNOLOGY: Negative. SKIN negative. MUSCULOSKELETAL significant for arthritis. PSYCHOSOCIAL negative. ENDOCRINE: Negative. DERM negative. CONSTITUTIONAL negative. ONCOLOGICAL negative. FIRE BATTALION CHIEF negative. Rest of the system review is not relevant. EXAM: Comfortable at rest. Vital signs are stable. There is no jugular venous distention. Carotid upstroke is normal. There is no bruit. Chest exam reveals good air entry bilaterally. Heart exam reveals first and second heart sounds. No gallop. No murmur. No rub. Abdomen is soft, nontender. Exam of the extremities did not reveal any edema. Peripheral pulses are felt. LABS: Show that 3 sets of troponins are negative. Hemoglobin is normal at 11.4, platelet count is 128. ASSESSMENT: Precordial chest pain with abnormal stress test. PLAN: I advised the patient to undergo cardiac catheterization today and if that looks normal, she will be discharged home. If she needs any intervention, she will spend the night here. MMODL / IJN: [id number] /
[2019-08-10 12:57] LABS: Glucose,Whole Blood 156 mg/dL (75-99)
[2019-08-10] MEDS: FUROSEMIDE 20 MG TAB PO SCH (13:05)
[2019-08-10] MEDS: PIOGLITAZONE 30 MG TAB PO SCH (13:05)
--- NOTE | 2019-08-10 16:06 | P.HPIM ---
History of Present Illness H&P Date: 08/10/19 Chief Complaint: Chest pain History of presenting complaint: This is a pleasant 74-year-old patient of Dr. Shelia Sanders. Patient's chronic stable medical conditions include diabetes, hyperlipidemia, hypertension, hypothyroid, osteoarthritis, ovarian cancer given chemotherapy in 2018, urinary stress incontinence, decreased vision in his left eye, bipolar, COPD. She's had a stress test and has been told that she'll be requiring a cardiac catheterization. Patient for last to 3 days been having more so pain on the central right side of the chest. Sometimes going down the right arm and the shoulder blade. No shortness of breath occasional dizziness occasional perspira tion. Because symptoms were more lasted she decided coming to the ER. Admitted with unstable angina. Admitted for cardiac catheterization Review of systems: GEN.: Tired EYES: Decreased vision in left eye HEENT: None NECK: None RESPIRATORY: None CARDIOVASCULAR: As above GASTROINTESTINAL: None GENITOURINARY: Incontinent MUSCULOSKELETAL: Joint pains LYMPHATICS: None HEMATOLOGICAL: None PSYCHIATRY: None NEUROLOGICAL: None Past medical history to include: Coronary artery disease, diabetes, hypertension, hyperlipidemia, hypothyroid, osteoarthritis, ovarian cancer treated with chemotherapy in 2018, urinary stress incontinence, decreased vision in the left eye, bipolar disorder, COPD Social history: Lives alone. Does use a walker. No alcohol. Smoker pack a day for about 38 years stopped in 1997. Physical examination: VITAL SIGNS: 98.6-54-18-164/59-98% on room air GENERAL: [BMI 45.7, sitting up, not in distress. EYES: Pupils equal. Conjunctiva normal. HEENT: External appearance of nose and ears normal, oral cavity grossly normal. NECK: JVD not raised; masses not palpable. HEART: First and second heart sounds are normal; no edema. LUNGS: Respiratory rate normal; decreased breath sounds. ABDOMEN: Soft, nontender, liver spleen not palpable, no masses palpable. PSYCH: Alert and oriented x3; mood and affect normal. MUSCULOSKELETAL:-Evidence of OA especially in the hands NEUROLOGICAL: Cranial nerves grossly intact; no facial asymmetry, power and sensation grossly intact. LYMPHATICS: No lymph nodes palpable in the axilla and neck INVESTIGATIONS, reviewed in the clinical context: White count is 6.5 hemoglobin 11.4 platelets 128 potassium 4.7 creatinine 0.97 Troponin I 3 negative proBNP 1300 EKG tracing personally reviewed by me-right bundle-branch block, sinus rhythm Chest x-ray film personally reviewed by me-cardiomegaly, underpenetrated film Assessment: -Unstable angina in a patient with known coronary artery disease with recent positive stress test with negative troponin and no obvious EKG changes -Diabetes mellitus type 2 on oral hypoglycemic -Hyperlipidemia -Essential hypertension -Hypothyroid -Primary osteoarthritis -Urinary stress incontinence -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 Home medications resumed. Hold off metformin for now in view of anticipating of cardiac catheterization. Accu-Cheks with sliding scale insulin will be followed. Care was discussed with the patient questions were answered. Cardiology was consulted. Past Medical History Past Medical History: Asthma, Coronary Artery Disease (CAD), Cancer, Diabetes Mellitus, Hearing Disorder / Deafness, Hyperlipidemia, Hypertension, Osteoarthritis (OA), Thyroid Disorder Additional Past Medical History / Comment(s): R sided ovarian cancer- tx with chemo finished October 2017, heart murmur, sleeps sitting up, constipation, hx anemia- recieved iron infusion, urinary incontinence, past frequent UTI's, lost vision in lt eye but has peripheral vision-stated "from a calcium clot" History of Any Multi-Drug Resistant Organisms: ESBL Date of last positivie culture/infection: 05/26/19 MDRO Source:: URINE Past Surgical History: Appendectomy, Cholecystectomy, Hysterectomy, Joint Replacement, Tonsillectomy Additional Past Surgical History / Comment(s): 06/2017 Exploratory laparotomy with ovarian tumor removal and lysis of adhesions, bilateral knee replacement, bilateral cataract removals, past(D&C. ), calcium clot lt eye, non functioning neurostimlator removed. glaucoma surgery Past Anesthesia/Blood Transfusion Reactions: No Reported Reaction Additional Past Anesthesia/Blood Transfusion Reaction / Comment(s): Unsure of family history, patient was adopted. Past Psychological History: Bipolar Additional Psychological History / Comment(s): pt lives alone in apt.has a cat named mannie. uses cane/walker at times. no home care services. Smoking Status: Former smoker Past Alcohol Use History: Occasional Additional Past Alcohol Use History / Comment(s): Pt started smoking in 1959, quit for good in 1997. 1-2 PPD Past Drug Use History: None Reported - Past Family History Father History Unknown: Yes Family Medical History: Unable to Obtain Additional Family Medical History / Comment(s): Pt is adopted and does not know parents medical history. Medications and Allergies Home Medications Medication Instructions Recorded Confirmed Type Baclofen 10 mg PO QID PRN 01/06/16 08/09/19 History DULoxetine HCL [Cymbalta] 60 mg PO DAILY 01/06/16 08/09/19 History oxyCODONE HCL [oxyCODONE HCL (IR)] 10 mg PO QID PRN 01/06/16 08/09/19 History Insulin NPH Hum/Reg Insulin Hm 10 - 12 unit SQ AC-BRKFST 03/17/16 08/09/19 History [NovoLIN 70-30 100 UNIT/ML VIAL] Insulin NPH Hum/Reg Insulin Hm 22 - 24 unit SQ AC-SUPPER 03/17/16 08/09/19 History [NovoLIN 70-30 100 UNIT/ML VIAL] Levothyroxine Sodium [Synthroid] 100 mcg PO DAILY 07/25/17 08/09/19 History Metoprolol Tartrate 25 mg PO BID 02/19/18 08/09/19 History Pioglitazone HCl [Actos] 30 mg PO QAM 02/19/18 08/09/19 History FLUoxetine HCL [PROzac] 10 mg PO DAILY 05/22/18 08/09/19 History Lisinopril-Hctz 20-12.5 mg 1 tab PO DAILY #30 tab 05/29/18 08/09/19 Rx [Zestoretic 20-12.5] Omeprazole [PriLOSEC] 20 mg PO AC-BID #60 cap 05/29/18 08/09/19 Rx amLODIPine [Norvasc] 5 mg PO HS #0 05/29/18 08/09/19 Rx Aspirin EC [Ecotrin Low Dose] 81 mg PO DAILY 12/31/18 08/09/19 History Atorvastatin Calcium [Lipitor] 40 mg PO HS 12/31/18 08/09/19 History Ascorbic Acid [Vitamin C] 500 mg PO DAILY 08/09/19 08/09/19 History Cholecalciferol [Vitamin D3 (25 2,000 unit PO DAILY 08/09/19 08/09/19 History Mcg = 1000 Iu)] Furosemide [Lasix] 20 mg PO DAILY 08/09/19 08/09/19 History Multivitamins, Thera [Multivitamin 1 tab PO DAILY 08/09/19 08/09/19 History (formulary)] Turmeric Root Extract [Turmeric] 500 mg PO DAILY 08/09/19 08/09/19 History metFORMIN HCL ER [Glucophage Xr] 1,000 mg PO PC-SUPPER 08/09/19 08/09/19 History Allergies Allergy/AdvReac Type Severity Reaction Status Date / Time adhesive Allergy blisters Verified 08/09/19 17:28 amoxicillin Allergy Rash/Hives Verified 08/09/19 17:28 ciprofloxacin [From Cipro] AdvReac Dyspnea Verified 08/09/19 17:28 ciprofloxacin HCl AdvReac Dyspnea Verified 08/09/19 17:28 [From Cipro] Physical Exam Vitals: Vital Signs Temp Pulse Pulse Resp BP BP Pulse Ox 08/10/19 11:44 98 F 62 14 143/71 97 08/10/19 08:15 97.5 F L 58 L 14 144/83 96 08/10/19 08:00 18 08/10/19 06:00 55 L 18 153/77 96 08/10/19 04:00 55 L 18 149/64 96 08/10/19 02:52 61 18 164/61 97 08/09/19 23:10 64 18 168/64 96 08/09/19 19:00 90 18 148/51 98 08/09/19 18:00 61 16 142/73 96 08/09/19 17:00 51 L 16 119/97 08/09/19 16:15 56 L 16 148/70 99 08/09/19 14:42 98.6 F 54 L 18 164/59 98 Intake and Output 08/09/19 08/10/19 08/10/19 22:59 06:59 14:59 Other: Voiding Method Toilet Diaper Incontinent # Voids 2 Weight 113.398 kg Results CBC & Chem 7: 08/09/19 15:11 08/09/19 15:11 Labs: Abnormal Lab Results - Last 24 Hours (Table) 08/09/19 08/09/19 08/09/19 Range/Units 15:11 15:11 15:11 MCHC 30.2 L (31.0-37.0) g/dL RDW 16.7 H (11.5-15.5) % Plt Count 128 L (150-450) k/uL Lymphocytes # 0.9 L (1.0-4.8) k/uL APTT 19.4 L (22.0-30.0) sec Sodium 135 L (137-145) mmol/L BUN 28 H (7-17) mg/dL Glucose 134 H (74-99) mg/dL POC Glucose (mg/dL) (75-99) mg/dL 08/09/19 08/10/19 Range/Units 19:45 09:53 MCHC (31.0-37.0) g/dL RDW (11.5-15.5) % Plt Count (150-450) k/uL Lymphocytes # (1.0-4.8) k/uL APTT (22.0-30.0) sec Sodium (137-145) mmol/L BUN (7-17) mg/dL Glucose (74-99) mg/dL POC Glucose (mg/dL) 195 H 161 H (75-99) mg/dL Thrombosis Risk Factor Assmnt - Choose All That Apply Any of the Below Risk Factors Present?: Yes Each Factor Represents 1 point: Obesity (BMI >25) Other Risk Factors: Yes Each Risk Factor Represents 3 Points: Age 75 years or older Thrombosis Risk Factor Assessment Total Risk Factor Score: 4 Thrombosis Risk Factor Assessment Level: Moderate Risk
[2019-08-10 16:45] LABS: Glucose,Whole Blood 209 mg/dL (75-99)
[2019-08-10] MEDS ORDERED: INSULN ASP PRT/INSULIN ASPART 100 UNIT/ML 10 ML VIAL SQ SCH (17:30)
[2019-08-10] MEDS ORDERED: metFORMIN 500 MG TAB PO SCH (18:30)
[2019-08-10] MEDS: amLODIPine 5 MG TAB PO SCH (20:29)
[2019-08-10 20:33] LABS: Glucose,Whole Blood 180 mg/dL (75-99)
[2019-08-11 04:19] VITALS: RESP 18
[2019-08-11] MEDS: LEVOTHYROXINE 100 MCG TAB PO SCH (05:57)
[2019-08-11] MEDS: LISINOPRIL-HCTZ 20-12.5 MG 1 EACH TAB PO SCH (05:58)
[2019-08-11] MEDS: METOPROLOL TARTRATE 25 MG TAB PO SCH (05:58)
[2019-08-11] MEDS: DULoxetine HCL 60 MG CAPSULE.DR PO SCH (05:58)
[2019-08-11] MEDS: PANTOPRAZOLE 40 MG TABLET PO SCH (05:58)
[2019-08-11] MEDS: FLUoxetine HCL 10 MG CAP PO SCH (06:14)
[2019-08-11 07:09] LABS: Glucose,Whole Blood 146 mg/dL (75-99)
[2019-08-11] MEDS ORDERED: INSULN ASP PRT/INSULIN ASPART 100 UNIT/ML 10 ML VIAL SQ SCH (07:30)
[2019-08-11] MEDS ORDERED: IV FLUID CONTINUATION 300 ML IV ONE (08:02)
[2019-08-11] MEDS: fentaNYL (PF) 50 MCG/ML 2 ML AMP IV ONE ×2 (08:12→08:26)
[2019-08-11] MEDS: MIDAZOLAM 2 MG/2 ML VIAL IVP ONE ×2 (08:12→08:26)
[2019-08-11] MEDS ORDERED: LIDOCAINE 1% INJ 10MG/ML (20 ML MDV) SQ ONE ×2 (08:17→08:26)
[2019-08-11] MEDS ORDERED: IOPAMIDOL-370 125ML BTL INJ ONE (08:45)
[2019-08-11] MEDS ORDERED: ASPIRIN 325 MG TAB PO SCH (09:00)
--- NOTE | 2019-08-11 09:03 | CC ---
CARDIAC CATHETERIZATION REPORT INDICATION: Precordial chest pain with abnormal stress test. PROCEDURE NOTE: After obtaining informed consent, left heart catheterization and coronary angiogram are performed via the left femoral artery using standard Mary catheters. The patient tolerated the procedure well without any obvious immediate complication. A femoral angiogram was performed and Angio-Seal was deployed for hemostasis. We initially attempted vascular access from the right femoral artery, but we were unsuccessful in introducing the sheath. The patient tolerated the procedure well. She received moderate conscious sedation and total sedation time was 22 minutes. FINDINGS: 1. HEMODYNAMICS: Left ventricular end-diastolic pressure is 20 to 22 mm. There is no gradient across the aortic valve. 2. LEFT VENTRICULOGRAM: Left ventriculogram is not performed. 3. ANGIOGRAPHIC DATA: Left Main Coronary Artery: Left main coronary artery is a normal-sized vessel and is free of stenosis. Divides into left anterior descending coronary artery and circumflex coronary artery. LAD: The LAD shows mild nonobstructive coronary artery disease. Circumflex coronary artery is a large codominant vessel and is free of significant disease. Right coronary artery shows mild nonobstructive disease. CONCLUSION: 1. Mild nonobstructive coronary artery disease. 2. Elevated left ventricular end-diastolic pressure. PLAN: Patient's stress test is a false positive stress test and her management is going to be in the form of risk factor modification. MMODL / IJN: [id number] /
--- NOTE | 2019-08-11 09:09 | LTR ---
August 11, 2019 Re: Shital Mckinnon Dear Dr. Sanders: I performed cardiac catheterization on Shital Mckinnon. A detailed catheterization note is enclosed for your records. In brief, the cardiac catheterization revealed mild non obstructive CAD. I believe her chest discomfort is noncardiac in origin and her stress test is a false positive stress test. Thank you for giving me the privilege to participate in the care of this pleasant lady. Sincerely, MD RAVEN Haines / LIZBETH: [id number] /
[2019-08-11 09:17] VITALS: TEMP 97.2
[2019-08-11] MEDS ORDERED: RX INFO: IV CONTRAST WAS GIVEN 1 EACH MISC MISCELLANE PRN (10:03)
[2019-08-11] MEDS: PIOGLITAZONE 30 MG TAB PO SCH (10:14)
[2019-08-11] MEDS: BACLOFEN 10 MG TAB PO PRN (11:00)
[2019-08-11 11:43] LABS: Glucose,Whole Blood 185 mg/dL (75-99)
[2019-08-11 11:52] VITALS: BP 116/56; PULSE 59
[2019-08-11] MEDS: FUROSEMIDE 20 MG TAB PO SCH (13:26)
--- NOTE | 2019-08-11 18:50 | P.DS ---
Providers Date of admission: 08/11/19 08:50 Expected date of discharge: 08/11/19 Attending physician: Milind Martel Consults: 08/09/19 16:36 Consult Physician Routine Consulting Provider: Drew Gage Consult Reason/Comments: CP Do you want consulting provider notified?: Yes Primary care physician: Linda Sanders [place] [facility] Course: Chief Complaint: Chest pain History of presenting complaint: This is a pleasant 74-year-old patient of Dr. Shelia Sanders. Patient's chronic stable medical conditions include diabetes, hyperlipidemia, hypertension, hyp othyroid, osteoarthritis, ovarian cancer given chemotherapy in 2018, urinary stress incontinence, decreased vision in his left eye, bipolar, COPD. She's had a stress test and has been told that she'll be requiring a cardiac catheterization. Patient for last to 3 days been having more so pain on the central right side of the chest. Sometimes going down the right arm and the shoulder blade. No shortness of breath occasional dizziness occasional perspiration. Because symptoms were more lasted she decided coming to the ER. Admitted with unstable angina. Admitted for cardiac catheterization Today-underwent a cardiac catheterization. Minimal disease. Okay by cardiology to be discharged. Consultation: Dr. Roshni Gage from cardiology Procedure: Cardiac catheterization Physical examination: VITAL SIGNS: 97.2-54-18-110/52, 93% room air GENERAL: Laying in bed, comfortable EYES: Pupils equal. Conjunctiva normal. HEENT: External appearance of nose and ears normal, oral cavity grossly normal. NECK: JVD not raised; masses not palpable. HEART: First and second heart sounds are normal; no edema. LUNGS: Respiratory rate normal; decreased breath sounds. ABDOMEN: Soft, nontender, liver spleen not palpable, no masses palpable. PSYCH: Alert and oriented x3; mood and affect normal. MUSCULOSKELETAL:-Evidence of OA especially in the hands INVESTIGATIONS, reviewed in the clinical context: White count is 6.5 hemoglobin 11.4 platelets 128 potassium 4.7 creatinine 0.97 Troponin I 3 negative proBNP 1300 EKG tracing personally reviewed by me-right bundle-branch block, sinus rhythm Chest x-ray film personally reviewed by me-cardiomegaly, underpenetrated film Cardiac catheterization-minimum disease Assessment: -Anterior chest wall pain-possibly musculoskeletal -Diabetes mellitus type 2 on oral hypoglycemic -Hyperlipidemia -Essential hypertension -Hypothyroid -Primary osteoarthritis -Urinary stress incontinence -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 -Bipolar disorder -Morbid obesity BMI 45.7 Disposition: Home Plan - Discharge Summary Discharge Rx Participant: No New Discharge Prescriptions: Continue oxyCODONE HCL [oxyCODONE HCL (IR)] 10 mg PO QID PRN PRN Reason: Pain DULoxetine HCL [Cymbalta] 60 mg PO DAILY Baclofen 10 mg PO QID PRN PRN Reason: Muscle Spasm Insulin NPH Hum/Reg Insulin Hm [NovoLIN 70-30 100 UNIT/ML VIAL] 10 - 12 unit SQ AC-BRKFST Insulin NPH Hum/Reg Insulin Hm [NovoLIN 70-30 100 UNIT/ML VIAL] 22 - 24 unit SQ AC-SUPPER Levothyroxine Sodium [Synthroid] 100 mcg PO DAILY Metoprolol Tartrate 25 mg PO BID Pioglitazone HCl [Actos] 30 mg PO QAM FLUoxetine HCL [PROzac] 10 mg PO DAILY Lisinopril-Hctz 20-12.5 mg [Zestoretic 20-12.5] 1 tab PO DAILY #30 tab Omeprazole [PriLOSEC] 20 mg PO AC-BID #60 cap amLODIPine [Norvasc] 5 mg PO HS #0 Aspirin EC [Ecotrin Low Dose] 81 mg PO DAILY Atorvastatin Calcium [Lipitor] 40 mg PO HS Furosemide [Lasix] 20 mg PO DAILY metFORMIN HCL ER [Glucophage Xr] 1,000 mg PO PC-SUPPER Docusate Sodium [Dok] 100 mg PO BID No Action Turmeric Root Extract [Turmeric] 500 mg PO DAILY Multivitamins, Thera [Multivitamin (formulary)] 1 tab PO DAILY Cholecalciferol [Vitamin D3 (25 Mcg = 1000 Iu)] 2,000 unit PO DAILY Ascorbic Acid [Vitamin C] 500 mg PO DAILY Ubidecarenone [Co Q-10] 200 mg PO DAILY Discharge Medication List Baclofen 10 mg PO QID PRN 01/06/16 [History] DULoxetine HCL [Cymbalta] 60 mg PO DAILY 01/06/16 [History] oxyCODONE HCL [oxyCODONE HCL (IR)] 10 mg PO QID PRN 01/06/16 [History] Insulin NPH Hum/Reg Insulin Hm [NovoLIN 70-30 100 UNIT/ML VIAL] 10 - 12 unit SQ AC-BRKFST 03/17/16 [History] Insulin NPH Hum/Reg Insulin Hm [NovoLIN 70-30 100 UNIT/ML VIAL] 22 - 24 unit SQ AC-SUPPER 03/17/16 [History] Levothyroxine Sodium [Synthroid] 100 mcg PO DAILY 07/25/17 [History] Metoprolol Tartrate 25 mg PO BID 02/19/18 [History] Pioglitazone HCl [Actos] 30 mg PO QAM 02/19/18 [History] FLUoxetine HCL [PROzac] 10 mg PO DAILY 05/22/18 [History] Lisinopril-Hctz 20-12.5 mg [Zestoretic 20-12.5] 1 tab PO DAILY #30 tab 05/29/18 [Rx] Omeprazole [PriLOSEC] 20 mg PO AC-BID #60 cap 05/29/18 [Rx] amLODIPine [Norvasc] 5 mg PO HS #0 05/29/18 [Rx] Aspirin EC [Ecotrin Low Dose] 81 mg PO DAILY 12/31/18 [History] Atorvastatin Calcium [Lipitor] 40 mg PO HS 12/31/18 [History] Ascorbic Acid [Vitamin C] 500 mg PO DAILY 08/09/19 [History] Cholecalciferol [Vitamin D3 (25 Mcg = 1000 Iu)] 2,000 unit PO DAILY 08/09/19 [History] Furosemide [Lasix] 20 mg PO DAILY 08/09/19 [History] Multivitamins, Thera [Multivitamin (formulary)] 1 tab PO DAILY 08/09/19 [History] Turmeric Root Extract [Turmeric] 500 mg PO DAILY 08/09/19 [History] metFORMIN HCL ER [Glucophage Xr] 1,000 mg PO PC-SUPPER 08/09/19 [History] Docusate Sodium [Dok] 100 mg PO BID 08/11/19 [History] Ubidecarenone [Co Q-10] 200 mg PO DAILY 08/11/19 [History] Follow up Appointment(s)/Referral(s): Linda Sanders MD [Primary Care Provider] - 1-2 days Drew Gage MD [STAFF PHYSICIAN] - 08/20/19 1:15 pm Discharge Disposition: HOME SELF-CARE
[2019-08-11] MEDS ORDERED: ATORVASTATIN 40 MG TAB PO SCH (21:00)
== END 2019-08-11 15:33 | disposition home or self-care (01) | DRG 287 ==
LOC: EC 14:39 → 1SOBS 16:35 → OBSVTOIN 08-11 08:50
PROVIDERS: ADMIT Hospitalist; ATTEND Hospitalist
PROC: B2111ZZ Fluoroscopy of Multiple Coronary Arteries using Low Osmolar Contrast (ICD-10-PCS; principal; 2019-08-11 07:45)
PROC: 4A023N7 Measurement of Cardiac Sampling and Pressure, Left Heart, Percutaneous Approach (ICD-10-PCS; principal; 2019-08-11 07:45)
DX: I25.110 Atherosclerotic heart disease of native coronary artery with unstable angina pectoris (principal); Z68.42 Body mass index [BMI] 45.0-49.9, adult; R07.89 Other chest pain; I10 Essential (primary) hypertension; E03.9 Hypothyroidism, unspecified; E11.9 Type 2 diabetes mellitus without complications; E66.01 Morbid (severe) obesity due to excess calories; M19.90 Unspecified osteoarthritis, unspecified site; F31.9 Bipolar disorder, unspecified; I45.10 Unspecified right bundle-branch block; J44.9 Chronic obstructive pulmonary disease, unspecified; Z96.653 Presence of artificial knee joint, bilateral; F17.210 Nicotine dependence, cigarettes, uncomplicated; E78.5 Hyperlipidemia, unspecified; H54.7 Unspecified visual loss; H91.90 Unspecified hearing loss, unspecified ear; Z79.4 Long term (current) use of insulin; Z85.43 Personal history of malignant neoplasm of ovary; Z92.21 Personal history of antineoplastic chemotherapy; Z90.710 Acquired absence of both cervix and uterus; Z86.19 Personal history of other infectious and parasitic diseases; Z90.49 Acquired absence of other specified parts of digestive tract; Z90.89 Acquired absence of other organs; Z98.890 Other specified postprocedural states; Z87.440 Personal history of urinary (tract) infections; Z79.899 Other long term (current) drug therapy; Z79.890 Hormone replacement therapy; Z79.82 Long term (current) use of aspirin; Z88.1 Allergy status to other antibiotic agents; Z88.0 Allergy status to penicillin; Z91.048 Other nonmedicinal substance allergy status
CPT/HCPCS: 36415; 71046; 80053; 83690; 83735; 83880; 84484; 85025; 85610; 85730; 93005; 93458; 99285

== ENCOUNTER → 2019-11-14 | Outpatient (CLI) | payer MEDICARE ==
--- NOTE | 2019-11-14 14:48 | CT ---
EXAMINATION TYPE: CT ChestAbdPelvis w con DATE OF EXAM: 11/14/2019 COMPARISON: 07/18/2019 HISTORY: Ovarian cancer. CT DLP: 1795 mGycm CONTRAST: CT scan of the chest, abdomen and pelvis is performed with Oral Contrast and with IV Contrast, patien t injected with 80 mL of Isovue 300. CT Chest: LUNGS: The lungs are clear and free of infiltrate or atelectasis. No pulmonary nodule or mass is det ected. No pleural effusion or CT evidence of interstitial lung disease. MEDIASTINUM: Thoracic aorta is of normal caliber. The heart is not enlarged. Mildly prominent right paratracheal lymph nodes measuring up to 1.1 cm. AP window lymph node measuring 1.0 cm. Findings are stable. HILAR STRUCTURES: No evidence for mass. No hilar adenopathy is appreciated. OTHER: No significant abnormality. CONTRAST CT ABDOMEN AND PELVIS FINDINGS: LIVER/GB: The gallbladder surgically absent. No space occupying hepatic lesion. Biliary tree is of no rmal caliber. PANCREAS: No inflammation. No distinct mass. SPLEEN: No splenic enlargement. No lesion seen. ADRENALS: Stable right-sided renal mass. Internal calcifications and fat. Left adrenal gland is unrem arkable. No thickening. KIDNEYS/BLADDER: No hydronephrosis. No nephrolithiasis. No distinct renal mass. BOWEL: Normal appendix. Normal bowel caliber. No inflammation. GENITAL ORGANS: Hysterectomy changes are seen. No evidence for recurrent or residual ovarian mass. LYMPH NODES: No greater than 1cm abdominal or pelvic lymph nodes are appreciated. AORTA: No significant abnormality. OSSEOUS STRUCTURES: No significant abnormality is seen. OTHER: No significant additional abnormality is seen. IMPRESSION: 1. No evidence for metastatic disease or recurrent disease. Otherwise stable examination.
== END | disposition home or self-care (01) ==
LOC: RADCTMAIN 12:05
PROVIDERS: ATTEND Internal Medicine Hematology & Oncology
DX: C56.1 Malignant neoplasm of right ovary (principal); Z88.1 Allergy status to other antibiotic agents; Z88.0 Allergy status to penicillin
CPT/HCPCS: 82565; 84520; 71260; 74177; 36415; Q9967 ×2

== ENCOUNTER 2020-04-16 21:27 | Emergency (ER) | payer MEDICARE ==
[2020-04-16 21:33] VITALS: BP 160/51; TEMP 98.2
--- NOTE | 2020-04-16 22:27 | XR ---
EXAMINATION TYPE: XR forearm RT DATE OF EXAM: 04/16/2020 COMPARISON: NONE HISTORY: Pain TECHNIQUE: 2 views FINDINGS: I see no fracture nor dislocation. Joint spaces are normal. : Elbow joint and wrist joint appear intact. There is some spurring at the coronoid process of the ul na. IMPRESSION: No fracture seen.
--- NOTE | 2020-04-16 22:29 | XR ---
EXAMINATION TYPE: XR hand complete RT DATE OF EXAM: 04/16/2020 COMPARISON: NONE HISTORY: Pain TECHNIQUE: 3 views FINDINGS: There is narrowing of the IP joint spaces. There is spurring at the first carpometacarpal j oint. I see no fracture nor dislocation. There is no subluxation. IMPRESSION: Osteoarthritis. No fracture seen.
--- NOTE | 2020-04-16 22:37 | CT ---
EXAMINATION TYPE: CT brain carolinine wo con DATE OF EXAM: 04/16/2020 COMPARISON: 09/22/2018 HISTORY: fall CT DLP: 1545.1 mGycm Automated exposure control for dose reduction was used. There is some cerebral cortical atrophy. There is no mass effect nor midline shift. There is no sign of intracranial hemorrhage. Calvarium is intact. Cervical vertebra have normal alignment. There is mild spurring at C5-6 and C4-5 endplates. The facet joints are intact. Prevertebral soft tissues are intact. There is normal aeration of the right mastoid sinus. There is incomplete pneumatization left mastoid sinus. Occipital bone is intact. There is no evidence for fracture. IMPRESSION: Cerebral atrophy. No acute intracranial abnormality. No change. Right frontal scalp soft tissue swell ing improved compared to old exam. Spondylotic changes in the cervical spine are stable compared to old exam. No fracture.
--- NOTE | 2020-04-16 23:10 | ED ---
General Adult HPI - General Chief complaint: Fall Stated complaint: Fall Time Seen by Provider: 04/16/20 21:42 Source: patient, RN notes reviewed, old records reviewed Mode of arrival: wheelchair Limitations: no limitations - History of Present Illness Initial comments: 74-year-old female patient with the chief complaint of fall. Patient reports that she was walking into her door when she tripped fell forward hitting her face on the door jam and then again when she fell to the ground. Chief complaint is right wrist pain. Denies any headache or any neck pain. Does have a superficial skin abrasion to the forehead. Systemic: Pt denies fatigue, fever/chills, rash. Pt denies weakness, night sweats, weight loss. Neuro: Pt denies headache, visual disturbances, syncope or pre-syncope. HEENT: Pt denies ocular discharge or irritation, otalgia, rhinorrhea, pharyngitis or notable lymphadenopathy. Cardiopulmonary: Pt denies chest pain, SOB, heart palpitations, dyspnea on exertion. Abdominal/GI: Pt denies abdominal pain, n/v/d. : Pt denies dysuria, burning w/ urination, frequency/urgency. Denies new onset urinary or bowel incontinence. MSK: Pt denies myalgia, loss of strength or function in extremities. Neuro: Pt denies new onset weakness, paresthesias. - Related Data Home Medications Medication Instructions Recorded Confirmed Baclofen 10 mg PO QID PRN 01/06/16 08/09/19 DULoxetine HCL [Cymbalta] 60 mg PO DAILY 01/06/16 08/09/19 oxyCODONE HCL [oxyCODONE HCL (IR)] 10 mg PO QID PRN 01/06/16 08/09/19 Insulin NPH Hum/Reg Insulin Hm 10 - 12 unit SQ AC-BRKFST 03/17/16 08/09/19 [NovoLIN 70-30 100 UNIT/ML VIAL] Insulin NPH Hum/Reg Insulin Hm 22 - 24 unit SQ AC-SUPPER 03/17/16 08/09/19 [NovoLIN 70-30 100 UNIT/ML VIAL] Levothyroxine Sodium [Synthroid] 100 mcg PO DAILY 07/25/17 08/09/19 Metoprolol Tartrate 25 mg PO BID 02/19/18 08/09/19 Pioglitazone HCl [Actos] 30 mg PO QAM 02/19/18 08/09/19 FLUoxetine HCL [PROzac] 10 mg PO DAILY 05/22/18 08/09/19 Aspirin EC [Ecotrin Low Dose] 81 mg PO DAILY 12/31/18 08/09/19 Atorvastatin Calcium [Lipitor] 40 mg PO HS 12/31/18 08/09/19 Ascorbic Acid [Vitamin C] 500 mg PO DAILY 08/09/19 08/09/19 Cholecalciferol [Vitamin D3 (25 2,000 unit PO DAILY 08/09/19 08/09/19 Mcg = 1000 Iu)] Furosemide [Lasix] 20 mg PO DAILY 08/09/19 08/09/19 Multivitamins, Thera [Multivitamin 1 tab PO DAILY 08/09/19 08/09/19 (formulary)] Turmeric Root Extract [Turmeric] 500 mg PO DAILY 08/09/19 08/09/19 metFORMIN HCL ER [Glucophage Xr] 1,000 mg PO PC-SUPPER 08/09/19 08/09/19 Docusate Sodium [Dok] 100 mg PO BID 08/11/19 08/11/19 Ubidecarenone [Co Q-10] 200 mg PO DAILY 08/11/19 08/11/19 Previous Rx's Medication Instructions Recorded Lisinopril-Hctz 20-12.5 mg 1 tab PO DAILY #30 tab 05/29/18 [Zestoretic 20-12.5] Omeprazole [PriLOSEC] 20 mg PO AC-BID #60 cap 05/29/18 amLODIPine [Norvasc] 5 mg PO HS #0 05/29/18 Allergies Allergy/AdvReac Type Severity Reaction Status Date / Time adhesive Allergy blisters Verified 04/16/20 21:33 amoxicillin Allergy Rash/Hives Verified 04/16/20 21:33 ciprofloxacin [From Cipro] AdvReac Dyspnea Verified 04/16/20 21:33 ciprofloxacin HCl AdvReac Dyspnea Verified 04/16/20 21:33 [From Cipro] Review of Systems ROS Statement: Those systems with pertinent positive or pertinent negative responses have been documented in the HPI. ROS Other: All systems not noted in ROS Statement are negative. Past Medical History Past Medical History: Asthma, Coronary Artery Disease (CAD), Cancer, Diabetes Mellitus, Hearing Disorder / Deafness, Hyperlipidemia, Hypertension, Osteoarthritis (OA), Thyroid Disorder Additional Past Medical History / Comment(s): R sided ovarian cancer- tx with chemo finished October 2017, heart murmur, sleeps sitting up, constipation, hx anemia- recieved iron infusion, urinary incontinence, past frequent UTI's, lost vision in lt eye but has peripheral vision-stated "from a calcium clot" History of Any Multi-Drug Resistant Organisms: ESBL Date of last positivie culture/infection: 05/26/19 MDRO Source:: URINE Past Surgical History: Appendectomy, Cholecystectomy, Hysterectomy, Joint Replacement, Tonsillectomy Additional Past Surgical History / Comment(s): 06/2017 Exploratory laparotomy with ovarian tumor removal and lysis of adhesions, bilateral knee replacement, bilateral cataract removals, past(D&C. ), calcium clot lt eye, non functioning neurostimlator removed. glaucoma surgery Past Anesthesia/Blood Transfusion Reactions: No Reported Reaction Additional Past Anesthesia/Blood Transfusion Reaction / Comment(s): Unsure of family history, patient was adopted. Past Psychological History: Bipolar Smoking Status: Former smoker Past Alcohol Use History: Occasional Past Drug Use History: None Reported - Past Family History Father History Unknown: Yes Family Medical History: Unable to Obtain Additional Family Medical History / Comment(s): Pt is adopted and does not know parents medical history. General Exam - General Exam Comments Initial Comments: Constitutional: NAD, AOX3, Pt has pleasant affect. HEENT: NC/AT, trachea midline, neck supple, no lymphadenopathy. External ears appear normal, without discharge. Mucous membranes moist. Eyes PERRLA, EOM intact. There is no scleral icterus. No pallor noted. Cardiopulmonary: RRR, no murmurs, rubs or gallops, no JVD noted. Lungs CTAB in anterior and posterior white. No peripheral edema. Abdominal exam: Abdomen soft and non-distended. Abdomen non-tender to palpation in all 4 quadrants. Bowel sounds active in LLQ. No hepatosplenomegaly. No ecchymosis Neuro: CN II-XII intact. No nuchal rigidity. No raccon eyes, no hutchinson sign, no hemotympanum. No cervical spinal tenderness. MSK: Distal right forearm mild tenderness to palpation. Tender dorsal and said snuffbox region. Radial pulse +2. Left range of motion of hand. No other areas of tenderness. Full active ROM in upper and lower extremities, 5/5 stregnth. Limitations: no limitations Course Vital Signs 04/16/20 21:31 Temperature 98.2 F Pulse Rate 91 Respiratory 20 Rate Blood Pressure 160/51 O2 Sat by Pulse 95 Oximetry Procedures - Orthopedic Splinting/Casting Injury #1 Side: right Upper Extremity Immobilizer: thumb spica ( Neurovascular intact before and after splint placemen, radial pulse +2) Medical Decision Making - Medical Decision Making 74-year-old female patient with the chief complaint of fall. Patient reports that she was walking into her door when she tripped fell forward hitting her face on the door jam and then again when she fell to the ground. Chief complaint is right wrist pain. Denies any headache or any neck pain. Does have a superficial skin abrasion to the forehead. Patient vital signs are stable, afebrile. Pt tetanus up to date. Physical exam displayed abrasion to the forehead and then some distal right forearm snuffbox tenderness. Plain film hand and forearm negative for acute fracture, CT brain C-spine negative for acute process. Patient states that him spica splint discharge and outpatient follow-up and return precautions. Case discussed with Dr. Magallanes. Disposition Clinical Impression: Fall, Wrist sprain Disposition: HOME SELF-CARE Condition: Stable Instructions (If sedation given, give patient instructions): Fall Prevention (ED), Wrist Sprain (ED) Additional Instructions: follow-up with primary care provider and orthopedic consult tomorrow. Continue to wear wrist splint. Return to ER if any worsening symptoms. Is patient prescribed a controlled substance at d/c from ED?: No Referrals: Linda Sanders MD [Primary Care Provider] - 1-2 days Obdulio Hu DO [Medical Doctor] - 1-2 days
[2020-04-17 01:55] VITALS: PULSE 82; RESP 18
== END 2020-04-17 00:45 | disposition home or self-care (01) ==
LOC: EC 21:27
DX: S63.501A Unspecified sprain of right wrist, initial encounter (principal); S00.81XA Abrasion of other part of head, initial encounter; H91.90 Unspecified hearing loss, unspecified ear; I10 Essential (primary) hypertension; E11.9 Type 2 diabetes mellitus without complications; E07.9 Disorder of thyroid, unspecified; E78.5 Hyperlipidemia, unspecified; M19.041 Primary osteoarthritis, right hand; R32 Unspecified urinary incontinence; K59.00 Constipation, unspecified; F31.9 Bipolar disorder, unspecified; Z79.899 Other long term (current) drug therapy; Z79.4 Long term (current) use of insulin; Z79.84 Long term (current) use of oral hypoglycemic drugs; Z79.890 Hormone replacement therapy; Z79.82 Long term (current) use of aspirin; Z91.048 Other nonmedicinal substance allergy status; Z88.0 Allergy status to penicillin; Z88.1 Allergy status to other antibiotic agents; Z96.653 Presence of artificial knee joint, bilateral; Z85.43 Personal history of malignant neoplasm of ovary; Z87.891 Personal history of nicotine dependence; W01.198A Fall on same level from slipping, tripping and stumbling with subsequent striking against other object, initial encounter; Y93.01 Activity, walking, marching and hiking; Y92.009 Unspecified place in unspecified non-institutional (private) residence as the place of occurrence of the external cause
CPT/HCPCS: 70450; 72125; 99284

== ENCOUNTER → 2020-05-14 | Outpatient (CLI) | payer MEDICARE ==
--- NOTE | 2020-05-14 15:24 | CT ---
EXAMINATION TYPE: CT ChestAbdPelvis w con DATE OF EXAM: 05/14/2020 COMPARISON: Prior CT 11/14/2019 HISTORY: Follow up ovarian cancer. CT DLP: 2428.9 mGycm Automated exposure control for dose reduction was used. CONTRAST: CT scan of the chest, abdomen and pelvis is performed with Oral Contrast and with IV Contrast, patien t injected with 100 mL of Isovue 300. FINDINGS: Small hiatal hernia again noted. LUNGS: The lungs are grossly clear, there is no concerning parenchymal mass or nodule identified. T here is no pleural effusion or pneumothorax seen. The tracheobronchial tree is patent. MEDIASTINUM: There are no changes in the mediastinal nodes. No pericardial effusion is seen. AORTA: No significant abnormality is seen. OTHER: No additional significant abnormality is seen. LIVER/GB: No significant interval change is appreciated, patient is post cholecystectomy, liver shows no mass. PANCREAS: No significant abnormality is seen. SPLEEN: No significant abnormality is seen. 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 KIDNEYS: No significant abnormality is seen. REPRODUCTIVE ORGANS: Not seen. BOWEL: No significant interval change is seen, postop changes are again noted. FREE AIR: No Free Air visible. ASCITES: None seen. RETROPERITONEAL ADENOPATHY: No retroperitoneal adenopathy is seen. LYMPH NODES: No greater than 1 cm abdominal or pelvic lymph nodes are appreciated. URINARY BLADDER: No significant abnormality is seen. PELVIC ADENOPATHY: None visualized. OSSEOUS STRUCTURES: No significant abnormality is seen. IMPRESSION: Stable postoperative findings. Recurrence is not evident.
== END | disposition home or self-care (01) ==
LOC: RADCTMAIN 10:55
PROVIDERS: ATTEND Internal Medicine Hematology & Oncology
DX: C56.1 Malignant neoplasm of right ovary (principal); E11.9 Type 2 diabetes mellitus without complications; Z79.84 Long term (current) use of oral hypoglycemic drugs; Z88.1 Allergy status to other antibiotic agents; Z90.49 Acquired absence of other specified parts of digestive tract
CPT/HCPCS: 82565; 84520; 71260; 74177; 36415; Q9967

== ENCOUNTER → 2020-08-06 | Day surgery (SDC) | payer MEDICARE ==
[2020-08-04 15:22] VITALS: BMI 45.3
[~2020-08-06] MED LIST changes: +LIDOCAINE 1% (10MG/ML) FOR IV START INTRADERMA ONE; +LIDOCAINE 1% INJ 10MG/ML (20 ML MDV) ONE; +PROPOFOL 10 MG/ML 20 ML VIAL IV ONE
[2020-08-06 07:36] VITALS: RESP 16; TEMP 97.6
[2020-08-06 07:37] LABS: Glucose,Whole Blood 197 mg/dL (75-99)
--- NOTE | 2020-08-06 08:23 | P.PCN ---
Date of Procedure: 08/06/20 Procedure(s) Performed: Brief history: Patient is a pleasant 75-year-old white female scheduled for an elective upper endoscopy as well as colonoscopy as a part of evaluation of Iron deficiency anemia. Procedure performed: Esophagogastroduodenoscopy with biopsy Colonoscopy Preoperative diagnosis: Iron deficiency anemia [place] [facility] Procedure: After informed consent was obtained from the patient was brought into the endoscopy unit and IV sedation was administered by anesthesia under continuous monitoring. Initially upper endoscopy was done. The Olympus GF 160 video endoscope was inserted inserted into the mouth and esophagus intubated without any difficulty and was gradually advanced into the stomach and duodenum and carefully examined. The bulb and second part of the duodenum appeared normal. Biopsies were done from the duodenum to rule out celiac disease. The scope was then withdrawn into the stomach adequately insufflated with air and upon careful examination the antrum had gastritis and biopsies were done from this area. The body, cardia and fundus appeared normal. The scope was then withdrawn into the esophagus. The GE junction was located at 40 cm to the incisors. It appeared regular with no erythema erosions or ulcerations. Rest of the esophagus appeared normal. Patient tolerated the procedure well. At this time the patient continued to remain sedation. Initial digital rectal examination was normal. Olympus CF 160 video colonoscope was then inserted into the rectum and gradually advanced to the to the descending colon and further advancement was not possible despite multiple attempts and changing the scope to pediatric colonoscopy. The prep was poor. Careful examination was performed as the scope was gradually being withdrawn. The visualized portions of the descending colon; and rectum appeared normal. Moderate sigmoid diverticulosis seen. Retroflexion was performed in the rectum and no lesions were noted. Patient tolerated the procedure well. Impression: 1. Upper endoscopy revealed mild antral gastritis but no evidence of esophagiti s or peptic ulcer disease colonoscopy 2. olonoscopy up descending colon revealed diverticulosis but the scope could not be advanced beyond this area because of acute angulation. Recommendations: Findings of this examination were discussed with the patient as well as her family. She was advised to follow with the biopsy results. She'll be scheduled for a barium enema to evaluate the rest of the colon. She'll be seen in office in 2 weeks.
[2020-08-06 08:35] LABS: Glucose,Whole Blood 188 mg/dL (75-99)
[2020-08-06 08:53] VITALS: BP 141/71; PULSE 79
--- NOTE | 2020-08-06 11:02 | FL ---
EXAMINATION TYPE: FL barium enema DATE OF EXAM: 08/06/2020 COMPARISON: CT May 14, 2020 HISTORY: Incomplete colonoscopy. TECHNIQUE: A double contrast barium enema study is attempted. Total of 19 seconds fluoroscopic time utilized during procedure. 6 spot images saved to PACS. FINDINGS: Forest Officer view of the abdomen shows overall some gas prominence of colonic loops. Procedure ex plained to the patient including possibility of increased pain and difficulty passing contrast due to prominence of air in colon. Patient wished to proceed. Enema study is attempted. Patient has difficulty holding contrast and limited mobility, patient unabl e to lie on stomach. Exam terminated before being diagnostic. IMPRESSION: As above. Exam canceled. Patient unable to lie on stomach for enema study.
== END ==
LOC: ORWHC2ENDO 07:03
PROVIDERS: ATTEND Internal Medicine Gastroenterology
DX: K29.50 Unspecified chronic gastritis without bleeding (principal); D50.9 Iron deficiency anemia, unspecified; K57.30 Diverticulosis of large intestine without perforation or abscess without bleeding; Z53.8 Procedure and treatment not carried out for other reasons; Z79.890 Hormone replacement therapy; Z79.899 Other long term (current) drug therapy; I25.10 Atherosclerotic heart disease of native coronary artery without angina pectoris; I10 Essential (primary) hypertension; E78.5 Hyperlipidemia, unspecified; E11.9 Type 2 diabetes mellitus without complications; K21.9 Gastro-esophageal reflux disease without esophagitis; Z79.4 Long term (current) use of insulin; Z79.891 Long term (current) use of opiate analgesic; Z79.82 Long term (current) use of aspirin; Z88.1 Allergy status to other antibiotic agents; Z88.0 Allergy status to penicillin; Z91.09 Other allergy status, other than to drugs and biological substances
CPT/HCPCS: 88305; 74270; 45378; 43239; J2001; J2704

== ENCOUNTER → 2021-03-11 | Outpatient (CLI) | payer MEDICARE ==
--- NOTE | 2021-03-14 07:26 | CT ---
EXAMINATION TYPE: CT ChestAbdPelvis w con DATE OF EXAM: 03/11/2021 COMPARISON: 05/14/2020, 11/14/2019 HISTORY: 75-year-old female C56.1 Ovarian Cancer, Z03.89 observations for mets TECHNIQUE: Contiguous axial scanning of the chest, abdomen, and pelvis performed with IV Contrast, pa tient injected with 80 mL of Isovue 300. Delayed images through the kidneys were obtained. Coronal/sa gittal reconstructions performed. CT DLP: 2961.80 mGycm Automated exposure control for dose reduction was used. FINDINGS: CHEST: Heart is normal size without pericardial effusion. Extensive mitral annular calcifications are presen t. Moderate atherosclerotic calcifications aortic arch. Conventional arch vessel branching anatomy. 9 mm AP window lymph node is unchanged. A couple borderline and mildly enlarged lower right paratracheal lymph nodes measuring up to 1.2 cm a re unchanged. No progressive thoracic lymphadenopathy. Mildly large caliber to the main right and left pulmonary arteries measuring up to 3.0 and 2.7 cm, re spectively, suggesting underlying pulmonary hypertension. Strandy areas of atelectasis and scarring in the lower lungs. Some additional dependent atelectasis p osteriorly in the lungs. Otherwise, no consolidation or pleural effusion. ABDOMEN: Small hiatal hernia. Stable prominent bile duct likely due to postcholecystectomy status. Portal veno us system is patent. Stable mixed soft tissue and fat density mass of the right adrenal gland measuring up to 4.6 x 3.4 cm . Punctate calcifications are present within. 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 Left adrenal gland, left kidney, spleen with tiny anterior splenule, and pancreas show no gross abnor mality. Right kidney is slightly malrotated, unchanged. Moderate atherosclerotic calcifications abdominal aorta and iliac arteries. No dilated small bowel, free fluid, or free air. There is moderate stool burden. Sigmoid diverticulos is. Unable to exclude a subtle sigmoid to sigmoid fistulous communication, refer to coronal images 53 through 62. Also, reference axial image 97. These changes abut the dome of the bladder where slight thickening may be present. No mesenteric or retroperitoneal lymphadenopathy. Post laparotomy scarring infraumbilical midline. PELVIS: Bladder partially distended. Uterus and ovaries surgically absent. No abnormal fluid collection in th e pelvis or pelvic lymphadenopathy. BONES: Moderate degenerative change at the hips. Stable bone island L3 vertebral body. [facility] within the thora cic spine. Vertebral compression fracture of T12 unchanged back to 11/14/2019. Degenerative grade 1 an terolisthesis L4-L5. IMPRESSION: 1. POST SURGICAL CHANGE OF HYSTERECTOMY AND BILATERAL SALPINGO-OOPHORECTOMIES. NO EVIDENCE FOR METAST ATIC DISEASE. 2. SIGMOID DIVERTICULOSIS WITH POSSIBLE CHRONIC POSTINFLAMMATORY COLO-COLONIC FISTULA HERE (REFER TO AXIAL IMAGE 97). CONSIDER SURGICAL ASSESSMENT. 3. SMALL HIATAL HERNIA, POSSIBLE PULMONARY ARTERIAL HYPERTENSION, DENSE MITRAL ANNULAR CALCIFICATIONS , STABLE 4.6 CM MIXED DENSITY MASS OF THE RIGHT ADRENAL GLAND, PROBABLE MYELOLIPOMA, AND CHRONIC VERT EBRAL COMPRESSION FRACTURE OF T12.
== END | disposition home or self-care (01) ==
LOC: RADCTMAIN 12:19
PROVIDERS: ATTEND Internal Medicine Hematology & Oncology
DX: K44.9 Diaphragmatic hernia without obstruction or gangrene (principal); K57.30 Diverticulosis of large intestine without perforation or abscess without bleeding; I27.20 Pulmonary hypertension, unspecified; Z85.43 Personal history of malignant neoplasm of ovary
CPT/HCPCS: 82565; 84520; 71260; 74177; 36415; Q9967 ×2

== ENCOUNTER → 2021-08-18 | Outpatient (CLI) | payer MEDICARE ==
--- NOTE | 2021-08-18 14:29 | US ---
EXAMINATION TYPE: US kidneys/renal and bladder DATE OF EXAM: 08/18/2021 COMPARISON: Correlation CT 03/11/2021 CLINICAL HISTORY: 76-year-old female N18.30 CKD STAGE III. CKD, HTN, DM, Hysterectomy, history of ova serenity cancer TECHNIQUE: Multiple sonographic images of the bladder are obtained. FINDINGS: EXAM MEASUREMENTS: Right Kidney: 9.8 x 4.7 x 4.7 cm Left Kidney: 10.1 x 4.0 x 5.0 cm [facility] [employer] notes: Limited exam due to patient body habitus and bowel gas. Right Kidney: No hydronephrosis or masses seen Left Kidney: No hydronephrosis or masses seen Bladder: Limited, not fully distended Bilateral Jets seen: not seen due to patient body habitus and flashing artifact IMPRESSION: 1. No hydronephrosis. 2. Underdistention of the bladder limits its evaluation.
== END | disposition home or self-care (01) ==
LOC: RADUSWWP 13:01
PROVIDERS: ATTEND Internal Medicine
DX: E11.22 Type 2 diabetes mellitus with diabetic chronic kidney disease (principal); I12.9 Hypertensive chronic kidney disease with stage 1 through stage 4 chronic kidney disease, or unspecified chronic kidney disease; N18.30 Chronic kidney disease, stage 3 unspecified; Z85.43 Personal history of malignant neoplasm of ovary
CPT/HCPCS: 76770

== ENCOUNTER → 2021-09-09 | Outpatient (CLI) | payer MEDICARE ==
--- NOTE | 2021-09-10 13:41 | CT ---
EXAMINATION TYPE: CT ChestAbdPelvis w con DATE OF EXAM: 09/09/2021 COMPARISON: 03/11/2021 HISTORY: Ovarian cancer CT DLP: 3089.0 mGycm Automated exposure control for dose reduction was used. CONTRAST: CT scan of the chest, abdomen and pelvis is performed with Oral Contrast and with IV Contrast, patien t injected with 80 mL of Isovue 300. FINDINGS: CHEST: Heart is normal size without pericardial effusion. Extensive mitral annular calcifications are present. Moderate atherosclerotic calcifications aortic arch. Conventional arch vessel branching raymundo francois. 9 mm AP window lymph node is unchanged. A couple borderline and mildly enlarged lower right par atracheal lymph nodes measuring up to 1.2 cm are unchanged. No progressive thoracic lymphadenopathy. Mildly large caliber to the main right and left pulmonary arteries measuring up to 3.0 and 2.7 cm, re spectively, suggesting underlying pulmonary hypertension. Strandy areas of atelectasis and scarring i n the lower lungs. Some additional dependent atelectasis posteriorly in the lungs. Otherwise, no cons olidation or pleural effusion. Underlying emphysematous changes suspected. Annular calcification note d. Coronary artery calcification seen. Atherosclerotic change aorta is of normal caliber. ABDOMEN: Small hiatal hernia. Stable prominent bile duct likely due to postcholecystectomy status. Po rtal venous system is patent. Stable mixed soft tissue and fat density mass of the right adrenal gland measuring up to 4.6 x 3.4 cm . Punctate calcifications are present within. 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 Left adrenal gland, left ki dney, spleen with tiny anterior splenule, and pancreas show no gross abnormality. Right kidney is slightly malrotated, unchanged. Moderate atherosclerotic calcifications abdominal aor ta and iliac arteries. No dilated small bowel, free fluid, or free air. There is moderate stool burde n. Sigmoid diverticulosis. Unable to exclude a subtle sigmoid to sigmoid fistulous communication. These changes abut the dome of the bladder where slight thickening may be present. Persistent wall thicken ing in the region of the sigmoid colon similar to the prior exam. This could be inflammatory although neoplastic disease not excluded. No mesenteric or retroperitoneal lymphadenopathy. Post laparotomy scarring infraumbilical midline. PELVIS: Bladder partially distended. Uterus and ovaries surgically absent. No abnormal fluid collecti on in the pelvis or pelvic lymphadenopathy. BONES: Moderate degenerative change and arthropathy of the hips. Stable bone island L3 vertebral body . [facility] within the thoracic spine. Vertebral compression fracture of T12 unchanged back to 11/14/2019. Degenerative grade 1 anterolisthesis L4-L5. Grade 1 anterolisthesis L4 on L5 IMPRESSION: 1. POST SURGICAL CHANGE OF HYSTERECTOMY AND BILATERAL SALPINGO-OOPHORECTOMIES. NO EVIDENCE FOR METAST ATIC DISEASE. 2. SIGMOID DIVERTICULOSIS WITH PERSISTENT WALL THICKENING OF SIGMOID COLON. POSSIBLE CHRONIC POSTINFL AMMATORY COLO-COLONIC FISTULA AGAIN NOT EXCLUDED. UNDERLYING NEOPLASTIC PROCESS NOT ENTIRELY EXCLUDED . HOWEVER, FINDINGS STABLE. 3. SMALL HIATAL HERNIA, POSSIBLE PULMONARY ARTERIAL HYPERTENSION, DENSE MITRAL ANNULAR CALCIFICATIONS . 4. 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
== END | disposition home or self-care (01) ==
LOC: RADCTMAIN 10:07
PROVIDERS: ATTEND Internal Medicine Hematology & Oncology
DX: C56.9 Malignant neoplasm of unspecified ovary (principal); K57.30 Diverticulosis of large intestine without perforation or abscess without bleeding; K44.9 Diaphragmatic hernia without obstruction or gangrene; E27.8 Other specified disorders of adrenal gland; Z90.710 Acquired absence of both cervix and uterus; Z90.722 Acquired absence of ovaries, bilateral
CPT/HCPCS: 82565; 84520; 71260; 74177; 36415; Q9967

== ENCOUNTER → 2021-11-09 | Outpatient (CLI) | payer MEDICARE ==
--- NOTE | 2021-11-09 10:57 | BD ---
EXAMINATION TYPE: Axial Bone Density DATE OF EXAM: 11/09/2021 COMPARISON: NONE CLINICAL HISTORY: 76 years year old Female. ICD-10 CODE: Z78.0 MENOPAUSAL STATE Height: 60 Weight: 241.1 FRAX RISK QUESTIONS: Alcohol (3 or more units per day): no Family History (Parent hip fracture): no Glucocorticoids (More than 3mos): no (Ex: prednisone, prednisolone, methylprednisolone, dexamethasone, and hydrocortisone). History of Fracture in Adulthood: no Secondary Osteoporosis: 1. Type 1 Diabetes: no 2. Hyperthyroidism: no 3. Menopause before 45: no 4. Malnutrition: no 5. Chronic liver disease: no Rheumatoid Arthritis: no Current Tobacco Use: no RISK FACTORS HISTORY OF: Surgery to Spine/Hip(right/left)/Wrist (right/left): no Active: no Diet low in dairy products/other sources of calcium: no Postmenopausal woman: yes Lost more than 2 inches in height since high school: yes MEDICATIONS: diabetic meds Thyroid Medications: synthroid How Lon years Additional History: EXAM MEASUREMENTS: Bone mineral densitometry was performed using the [employer] System. Bone mineral density as measured about the Lumbar spine is: ----- L1-L4(G/cm2): 1.109 T Score Values are as follows: ----- L1: -0.5 ----- L2: 0.7 ----- L3: -1.5 ----- L4: -1.1 ----- L1-L4: -0.6 Bone mineral density has: decreased -5.1 % since study of: 03.17.2019 Bone mineral density about the R hip (g/cm2): 0850 Bone mineral density about the L hip (g/cm2): 0.896 T Score values are as follows: -----R Neck: -1.4 -----L Neck: -1.0 -----R Total: -009 -----L Total: -0.8 Bone mineral density has: decreased -6.0 % since study of: 03.17.2019 FRAX%s: The graph provided illustrates a 9.9% chance for a major osteoporotic fx and a 1.8% chance fo r the hips probability for fx in 10 years time. IMPRESSION: No evidence for osteoporosis or osteopenia at this time. NOTE: T-SCORE=SD OF THE YOUNG ADULT MEAN.
--- NOTE | 2021-11-10 14:41 | MM ---
Reason for exam: screening (asymptomatic). Last mammogram was performed 2 years and 8 months ago. History: Patient is postmenopausal, has history of ovarian cancer at age 72, and is nulliparous. Physical Findings: A clinical breast exam by your physician is recommended on an annual basis and results should be correlated with mammographic findings. MG 3D Screening Mammo W/Cad Bilateral CC and MLO view(s) were taken. Prior study comparison: March 17, 2019, bilateral MG 3d screening mammo w/cad. December 14, 2016, bilateral MG 3d screening mammo w/cad. Benign appearing bilateral calcifications. No significant changes when compared with prior studies. ASSESSMENT: Benign, BI-RAD 2 RECOMMENDATION: Routine screening mammogram of both breasts in 1 year.
== END | disposition home or self-care (01) ==
LOC: RADBDWWP 09:45
PROVIDERS: ATTEND Internal Medicine
DX: Z12.31 Encounter for screening mammogram for malignant neoplasm of breast (principal); Z78.0 Asymptomatic menopausal state; Z85.43 Personal history of malignant neoplasm of ovary
CPT/HCPCS: 77063; 77067; 77080

== ENCOUNTER 2022-03-07 10:04 | Inpatient (IN) | payer MEDICARE ==
--- NOTE | 2022-03-07 11:06 | ED ---
General Adult HPI - General Chief complaint: Urogenital Stated complaint: urogenital Time Seen by Provider: 03/07/22 10:14 Source: patient, EMS Mode of arrival: EMS Limitations: no limitations - History of Present Illness Initial comments: Dictation was produced using [employer] dictation software. please excuse any grammatical, word or spelling errors. Chief Complaint: 76-year-old female presents with abdominal wall discharge History of Present Illness: 76-year-old female multiple comorbidities. She has history of cancer. She has history of abdominal surgery for correction of some sort of bowel cancer performed several years ago. Patient noted yesterday that there was brown discharge coming from the lower part of her abdomen. She states that it smelled feculent. Patient denies any nausea or vomiting. She is worried that she has a hole in her colon. Denies any constitutional symptoms. No diarrhea. She does complain of some pain in her abdomen The ROS documented in this emergency department record has been reviewed and confirmed by me. Those systems with pertinent positive or negative responses have been documented in the HPI. All other systems are other negative and/or noncontributory. PHYSICAL EXAM: General Impression: Alert and oriented x3, not in acute distress HEENT: Normocephalic atraumatic, extra-ocular movements intact, pupils equal and reactive to light bilaterally, mucous membranes moist. Cardiovascular: Heart regular rate and rhythm Chest: Able to complete full sentences, no retractions, no tachypnea Abdomen: abdomen soft, non-tender, non-distended, no organomegaly, there does appear to be a defect in the inferior portion of surgical scar with brown discharge, wound was probed with Q-tip to approximately 8 cm the patient began to feel some pain. Musculoskeletal: Pulses present and equal in all extremities, no peripheral edema Motor: no focal deficits noted Neurological: CN II-XII grossly intact, no focal motor or sensory deficits noted Skin: Intact with no visualized rashes Psych: Normal affect and mood ED course: 76-year-old female presents to the emergency Department with drainage coming from abdominal wall defect. The defect appears to be at the inferior portion of the surgical scar. Patient states she had operation to the abdomen to treat cancer. Vital signs upon arrival are within acceptable limits. EKG interpretation: Ventricular rate 85, sinus rhythm,. Interval 165, QRS 133, QTc 465, right bundle branch block No CO prolongation, no QTC prolongation, no ST or T-wave changes noted. EKG compared to the 2019 showing no changes. Overall, this EKG is unremarkable The patient's ER stay there was unexpected electronic medical record down time. 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 Labs and imaging were unremarkable. - Related Data Home Medications Medication Instructions Recorded Confirmed Baclofen 10 mg PO QID PRN 01/06/16 03/07/22 DULoxetine HCL [Cymbalta] 60 mg PO DAILY 01/06/16 03/07/22 oxyCODONE HCL [oxyCODONE HCL (IR)] 10 mg PO QID PRN 01/06/16 03/07/22 Insulin NPH Hum/Reg Insulin Hm 12 - 16 unit SQ AC-BRKFST 03/17/16 03/07/22 [NovoLIN 70-30 100 UNIT/ML VIAL] Insulin NPH Hum/Reg Insulin Hm 16 - 22 unit SQ AC-SUPPER 03/17/16 03/07/22 [NovoLIN 70-30 100 UNIT/ML VIAL] Levothyroxine Sodium [Synthroid] 100 mcg PO DAILY 07/25/17 03/07/22 Metoprolol Tartrate 25 mg PO BID 02/19/18 03/07/22 FLUoxetine HCL [PROzac] 10 mg PO DAILY 05/22/18 03/07/22 Aspirin EC [Ecotrin Low Dose] 81 mg PO DAILY 12/31/18 03/07/22 Atorvastatin Calcium [Lipitor] 40 mg PO HS 12/31/18 03/07/22 Furosemide [Lasix] 20 mg PO DAILY 08/09/19 03/07/22 metFORMIN HCL ER [Glucophage XR] 1,000 mg PO BID 08/09/19 03/07/22 Docusate Sodium [Dok] 100 mg PO BID PRN 08/11/19 03/07/22 Ubidecarenone [Co Q-10] 100 mg PO DAILY 08/11/19 03/07/22 Acetaminophen Tab [Tylenol Tab] 500 mg PO Q6H PRN 03/07/22 03/07/22 Cholecalciferol [Vitamin D3 (25 50 mcg PO DAILY 03/07/22 03/07/22 Mcg = 1000 Iu)] Cranberry Fruit Extract [Cranberry] 500 mg PO DAILY 03/07/22 03/07/22 L.acidoph,Paracasei, B.lactis 1 cap PO DAILY 03/07/22 03/07/22 [Probiotic] Pioglitazone HCl 15 mg PO DAILY 03/07/22 03/07/22 Semaglutide [Ozempic] 1 mg SQ Q7D 03/07/22 amLODIPine [Norvasc] 5 mg PO DAILY 03/07/22 03/07/22 Allergies Allergy/AdvReac Type Severity Reaction Status Date / Time adhesive Allergy blisters Verified 03/07/22 22:14 amoxicillin Allergy Rash/Hives Verified 03/07/22 22:14 ciprofloxacin [From Cipro] AdvReac Dyspnea Verified 03/07/22 22:14 ciprofloxacin HCl AdvReac Dyspnea Verified 03/07/22 22:14 [From Cipro] Review of Systems ROS Statement: Those systems with pertinent positive or pertinent negative responses have been documented in the HPI. ROS Other: All systems not noted in ROS Statement are negative. Past Medical History Past Medical History: Asthma, Coronary Artery Disease (CAD), Cancer, Diabetes Mellitus, Hearing Disorder / Deafness, Hyperlipidemia, Hypertension, Osteoarthritis (OA), Thyroid Disorder Additional Past Medical History / Comment(s): R sided ovarian cancer- tx with chemo finished October 2017, heart murmur, sleeps sitting up, constipation, hx anemia- recieved iron infusion, urinary incontinence, past frequent UTI's, lost vision in lt eye but has peripheral vision-stated "from a calcium clot" History of Any Multi-Drug Resistant Organisms: ESBL Date of last positivie culture/infection: 05/26/19 MDRO Source:: URINE Past Surgical History: Appendectomy, Cholecystectomy, Hysterectomy, Joint Replacement, Tonsillectomy Additional Past Surgical History / Comment(s): 06/2017 Exploratory laparotomy with ovarian tumor removal and lysis of adhesions, bilateral knee replacement, bilateral cataract removals, past(D&C. ), calcium clot lt eye, non functioning neurostimlator removed. glaucoma surgery, COLONOSCOPY Past Anesthesia/Blood Transfusion Reactions: No Reported Reaction Additional Past Anesthesia/Blood Transfusion Reaction / Comment(s): Unsure of family history, patient was adopted. Past Psychological History: Bipolar Smoking Status: Former smoker - Past Family History Father History Unknown: Yes Family Medical History: Unable to Obtain Additional Family Medical History / Comment(s): Pt is adopted and does not know parents medical history. General Exam Limitations: no limitations Course Vital Signs 03/07/22 03/07/22 03/08/22 10:18 22:00 05:26 Temperature 98.8 F 97.6 F Pulse Rate 89 101 H Pulse Rate [ 103 H Left] Pulse Rate [ Pulse Oximetery ] Respiratory 20 18 18 Rate Blood Pressure 129/57 189/72 Blood Pressure 117/62 [Right Arm] O2 Sat by Pulse 98 92 L 93 L Oximetry 03/08/22 07:22 Temperature 98.4 F Pulse Rate Pulse Rate [ Left] Pulse Rate [ 98 Pulse Oximetery ] Respiratory 20 Rate Blood Pressure Blood Pressure 124/66 [Right Arm] O2 Sat by Pulse Oximetry Medical Decision Making - Lab Data Result diagrams: 03/10/22 06:19 03/10/22 06:19 Lab Results 03/07/22 03/07/22 03/07/22 Range/Units 11:36 11:36 11:36 WBC 10.1 (3.8-10.6) k/uL RBC 4.84 (3.80-5.40) m/uL Hgb 13.4 (11.4-16.0) gm/dL Hct 43.0 (34.0-46.0) % MCV 88.8 (80.0-100.0) fL MCH 27.6 (25.0-35.0) pg MCHC 31.1 (31.0-37.0) g/dL RDW 13.3 (11.5-15.5) % Plt Count 477 H (150-450) k/uL MPV 7.6 Neutrophils % 77 % Lymphocytes % 11 % Monocytes % 8 % Eosinophils % 1 % Basophils % 0 % Neutrophils # 7.7 (1.3-7.7) k/uL Lymphocytes # 1.1 (1.0-4.8) k/uL Monocytes # 0.8 (0-1.0) k/uL Eosinophils # 0.1 (0-0.7) k/uL Basophils # 0.0 (0-0.2) k/uL PT 10.9 (9.0-12.0) sec INR 1.0 (<1.2) APTT 23.2 (22.0-30.0) sec Sodium 135 L (137-145) mmol/L Potassium 3.8 (3.5-5.1) mmol/L Chloride 97 L (98-107) mmol/L Carbon Dioxide 28 (22-30) mmol/L Anion Gap 10 mmol/L BUN 20 H (7-17) mg/dL Creatinine 0.91 (0.52-1.04) mg/dL Est GFR (CKD-EPI)AfAm 70 (>60 ml/min/1.73 sqM) Est GFR (CKD-EPI)NonAf 61 (>60 ml/min/1.73 sqM) Glucose 203 H (74-99) mg/dL Plasma Lactic Acid Konstantin (0.7-2.0) mmol/L Calcium 8.7 (8.4-10.2) mg/dL Total Bilirubin 0.6 (0.2-1.3) mg/dL AST 20 (14-36) U/L ALT 14 (4-34) U/L Alkaline Phosphatase 160 H (38-126) U/L Total Protein 6.7 (6.3-8.2) g/dL Albumin 3.2 L (3.5-5.0) g/dL 03/07/22 Range/Units 11:36 WBC (3.8-10.6) k/uL RBC (3.80-5.40) m/uL Hgb (11.4-16.0) gm/dL Hct (34.0-46.0) % MCV (80.0-100.0) fL MCH (25.0-35.0) pg MCHC (31.0-37.0) g/dL RDW (11.5-15.5) % Plt Count (150-450) k/uL MPV Neutrophils % % Lymphocytes % % Monocytes % % Eosinophils % % Basophils % % Neutrophils # (1.3-7.7) k/uL Lymphocytes # (1.0-4.8) k/uL Monocytes # (0-1.0) k/uL Eosinophils # (0-0.7) k/uL Basophils # (0-0.2) k/uL PT (9.0-12.0) sec INR (<1.2) APTT (22.0-30.0) sec Sodium (137-145) mmol/L Potassium (3.5-5.1) mmol/L Chloride (98-107) mmol/L Carbon Dioxide (22-30) mmol/L Anion Gap mmol/L BUN (7-17) mg/dL Creatinine (0.52-1.04) mg/dL Est GFR (CKD-EPI)AfAm (>60 ml/min/1.73 sqM) Est GFR (CKD-EPI)NonAf (>60 ml/min/1.73 sqM) Glucose (74-99) mg/dL Plasma Lactic Acid Konstantin 1.2 (0.7-2.0) mmol/L Calcium (8.4-10.2) mg/dL Total Bilirubin (0.2-1.3) mg/dL AST (14-36) U/L ALT (4-34) U/L Alkaline Phosphatase (38-126) U/L Total Protein (6.3-8.2) g/dL Albumin (3.5-5.0) g/dL Disposition Clinical Impression: Enterocutaneous fistula Disposition: ADMITTED IP TO THIS HOSP
[2022-03-07 11:51] LABS: Basophils % (A) 0 %; Eosinophils # (A) 0.1 k/uL (0-0.7); Eosinophils % (A) 1 %; HGB 13.4 gm/dL (11.4-16.0); Lymphocytes # (A) 1.1 k/uL (1.0-4.8); Lymphocytes % (A) 11 %; MCH 27.6 pg (25.0-35.0); MCHC 31.1 g/dL (31.0-37.0); MCV 88.8 fL (80.0-100.0); Mean Platelet Volume 7.6; Monocytes # (A) 0.8 k/uL (0-1.0); Monocytes % (A) 8 %; Neutrophils # (A) 7.7 k/uL (1.3-7.7); Neutrophils % (A) 77 %; Platelet Count 477 k/uL (150-450); RBC 4.84 m/uL (3.80-5.40); RDW 13.3 % (11.5-15.5); WBC 10.1 k/uL (3.8-10.6)
[2022-03-07 11:58] LABS: Partial Thromboplastin Time 23.2 sec (22.0-30.0); Prothrombin Time 10.9 sec (9.0-12.0)
[2022-03-07 12:00] LABS: Albumin 3.2 g/dL (3.5-5.0); Calcium 8.7 mg/dL (8.4-10.2); Potassium 3.8 mmol/L (3.5-5.1); Total Bilirubin 0.6 mg/dL (0.2-1.3); Total Protein 6.7 g/dL (6.3-8.2)
--- NOTE | 2022-03-07 12:55 | CT ---
EXAMINATION TYPE: CT abdomen pelvis w con DATE OF EXAM: 03/07/2022 COMPARISON: 09/09/2021 INDICATION: Possible fistula or bowel rupture, left sided abdominal pain DLP: 1603.9 mGycm, Automated exposure control for dose reduction was used. CONTRAST: 50 mL of Isovue 300. Study performed without Oral Contrast TECHNIQUE: Axial images were obtained from above the diaphragm to the pubic rami in the axial plane a t 5 mm thick sections. Reconstructed images are reviewed on the computer in the coronal plane. FINDINGS: Limited CT sections are obtained the lung bases. 2. CT ABDOMEN: Liver: Normal Spleen: Normal Pancreas: Mildly atrophic Adrenal glands: Left adrenal gland appears mildly nodular measuring 0.9 cm. Right adrenal gland is he terogenous and contains multiple small round calcifications and measures 4.5 x 3.0 cm. Gallbladder: Surgically absent Kidneys: No masses are evident. No hydronephrosis is present. No cysts are present. There is punct ate nonobstructing renal stone inferior pole within the malalignment right kidney. No hydroureter is evident. Aorta: Vascular calcification is within the aorta. Inferior vena cava: Normal. CT PELVIS: Within the anterior mid line pelvis there is an air-fluid level which appears to be within the wall of the abdomen. This extends to the lower suprapubic region. Fistula formation should be co nsidered. There is small bowel loops with air directly adjacent to the peritoneal wall. Example image series 201 and 61. No obstructed loops of bowel are evident. No clear bowel wall herniation is evident. Appendix: There appears to be a prior appendectomy. Urinary bladder: Normal. Genitourinary structures: Uterus and ovaries are not identified. Osseous structures: No suspicious lytic or sclerotic lesions. There is a compression deformity of T12 . No posterior wall displacement is evident. Endplate changes at T12-L1 are noted. IMPRESSIONS: 1. Air is present within the subcutaneous tissues midline pelvis. This extends to the anterior abdom inal wall. Bowel loops appear directly adjacent extending towards the abdomen wall. Fistula formation should be considered at this level. 2. Nonobstructing punctate inferior pole right renal stone. 3. Stable heterogenous right adrenal gland
[2022-03-08] MEDS: HYDROmorphone 1 MG/ML 1 ML SYRINGE IVP PRN ×6 (01:35→21:02)
[2022-03-08] MEDS ORDERED: ONDANSETRON 4 MG/2 ML VIAL IVP PRN (03:33)
[2022-03-08 08:52] LABS: Glucose,Whole Blood 196 mg/dL (70-110)
[2022-03-08] MEDS ORDERED: ACETAMINOPHEN TAB 500 MG TAB PO PRN (09:55)
[2022-03-08] MEDS ORDERED: BACLOFEN 10 MG TAB PO PRN (09:55)
[2022-03-08] MEDS ORDERED: NALOXONE 0.4 MG/ML 1 ML VIAL IV PRN (09:56)
[2022-03-08] MEDS ORDERED: MELATONIN 3 MG TABLET PO PRN (09:56)
[2022-03-08] MEDS ORDERED: LORazepam 0.5 MG TAB PO PRN (09:56)
[2022-03-08] MEDS ORDERED: CALCIUM CARBONATE 500 MG CHEWABLE PO PRN (09:56)
[2022-03-08] MEDS ORDERED: DEXTROSE 50% SYRINGE 50 ML IVP PRN ×4 (09:57→18:24)
[2022-03-08 11:27] LABS: Appearance,Urine Cloudy (Clear); Bacteria,Urine Occasional /hpf; Bilirubin,Urine 1+ (Negative); Blood,Urine Small (Negative); Calcium Oxalate Crystals,Urine Few /hpf; Color,Urine Yellow; Glucose,Urine (UA) Negative (Negative); Ketones,Urine 1+ (Negative); Leukocyte Esterase,Urine Large (Negative); Mucus,Urine Many /hpf; Nitrite,Urine Negative (Negative); Protein,Urine 1+ (Negative); RBC,Urine 25 /hpf (0-5); Squamous Epithelial Cell,Urine 2 /hpf (0-4); WBC,Urine 82 /hpf (0-5)
[2022-03-08 11:43] LABS: Specific Gravity,Urine >1.050 (1.001-1.035)
[2022-03-08] MEDS ORDERED: IOPAMIDOL CONTRAST (ORAL USE) VIAL PO PRN (12:03)
[2022-03-08] MEDS: DULoxetine HCL 60 MG CAPSULE.DR PO SCH (12:33)
[2022-03-08] MEDS: INSULIN ASPART (NovoLOG) 100 UNIT/ML VIAL SQ SCH ×2 (12:33→17:24)
[2022-03-08] MEDS: LEVOTHYROXINE 100 MCG TAB PO SCH (12:33)
[2022-03-08] MEDS: ASPIRIN 81 MG PO SCH (12:34)
[2022-03-08] MEDS: amLODIPine 5 MG TAB PO SCH (12:34)
[2022-03-08 12:43] LABS: Glucose,Whole Blood 195 mg/dL (70-110)
--- NOTE | 2022-03-08 15:26 | P.GSHP ---
History of Present Illness H&P Date: 03/08/22 CHIEF COMPLAINT: Fecal drainage from abdominal wound HISTORY OF PRESENT ILLNESS: This is a 76-year-old female with a known history of right ovarian cancer status post removal of ovarian tumor and chemotherapy in 2018 at [facility]. Patient also has surgical history of hysterectomy, appendectomy and cholecystectomy. Patient reports Sunday she was getting up from the bathroom and noted drainage coming from the bottom of her abdomen. She reported that the drainage was foul smelling and brown in color. Patient admitted the hospital for concerns of abdominal fistula. She had a computed tomography scan of abdomen and pelvis with IV contrast that showed areas present within the subcutaneous tissue midline pelvis. This extends to the anterior abdominal wall. Bowel loops appear directly adjacent extending towards the abdominal wall. Fistula formation should be considered at this level. Patient has a repeat computed tomography scan and pelvis with oral contrast which is pending. Patient does report abdominal pain. She reports having regular bowel movements she had been dealing with constipation earlier. She had mild tachycardia on admission. White count normal at 10.1 and is currently on a clear liquid diet. Patient denies cardiac history Patient seen and examined with Dr. naidu PAST MEDICAL HISTORY: See list. PAST SURGICAL HISTORY: See list. MEDICATIONS: See list. ALLERGIES: See list. SOCIAL HISTORY: No illicit drug use. REVIEW OF SYSTEMS: CONSTITUTIONAL: Denies fever or chills. HEENT: Denies blurred vision, vision changes, or eye pain. Denies hemoptysis CARDIOVASCULAR: Denies chest pain or pressure. RESPIRATORY: No shortness of breath. GASTROINTESTINAL: See HPI for pertinent findings HEMATOLOGIC: Denies bleeding disorders. GENITOURINARY: Denies any blood in urine or increased urinary frequency. SKIN: Denies pruitis. Denies rash. PHYSICAL EXAM: VITAL SIGNS: Reviewed GENERAL: Well-developed in no acute distress. HEENT: No sclera icterus. Extraocular movements grossly intact. Moist buccal mucosa. Head is atraumatic, normocephalic. No nasal drainage. ABDOMEN: Soft. Obese. Nondistended. Lower mid abdomen opening to the skin surface with liquidy brown stool. NEUROLOGIC: Alert and oriented. Cranial nerves II through XII grossly intact. LABORATORY DATA: WBC is 10.1 H should be 13.4 platelets 477 INR 1.0 Sodium is 135 potassium 3.8 creatinine 0.91 Lactic acid 1.2 Alk phos 160 IMAGING: Computed tomography scan abdomen and pelvis as stated above. Also noted nonobstructing punctate inferior pole right renal stone and stable heterogeneous right adrenal gland ASSESSMENT: 1. Enterocutaneous fistula PLAN: -Further evaluation with computed tomography scan abdomen and pelvis with oral contrast ordered -Continue supportive care -Continue clear liquid diet -Medicine service consulted for medical management -Further recommendations forthcoming per surgeon depending on computed tomography scan results -Apply ostomy apparatus to the fistula opening -GI prophylaxis Pepcid and DVT prophylaxis subcu heparin Physician Open Hearth Worker note has been reviewed by physician. Signing provider agrees with the documented findings, assessment, and plan of care. Past Medical History Past Medical History: Asthma, Coronary Artery Disease (CAD), Cancer, Diabetes Mellitus, Hearing Disorder / Deafness, Hyperlipidemia, Hypertension, Osteoarthritis (OA), Thyroid Disorder Additional Past Medical History / Comment(s): R sided ovarian cancer- tx with chemo finished October 2017, heart murmur, sleeps sitting up, constipation, hx anemia- recieved iron infusion, urinary incontinence, past frequent UTI's, lost vision in lt eye but has peripheral vision-stated "from a calcium clot" History of Any Multi-Drug Resistant Organisms: ESBL Date of last positivie culture/infection: 05/26/19 MDRO Source:: URINE Past Surgical History: Appendectomy, Cholecystectomy, Hysterectomy, Joint Replacement, Tonsillectomy Additional Past Surgical History / Comment(s): 06/2017 Exploratory laparotomy with ovarian tumor removal and lysis of adhesions, bilateral knee replacement, bilateral cataract removals, past(D&C. ), calcium clot lt eye, non functioning neurostimlator removed. glaucoma surgery, COLONOSCOPY Past Anesthesia/Blood Transfusion Reactions: No Reported Reaction Additional Past Anesthesia/Blood Transfusion Reaction / Comment(s): Unsure of family history, patient was adopted. Past Psychological History: Bipolar Smoking Status: Former smoker - Past Family History Father History Unknown: Yes Family Medical History: Unable to Obtain Additional Family Medical History / Comment(s): Pt is adopted and does not know parents medical history. Medications and Allergies Home Medications Medication Instructions Recorded Confirmed Type Baclofen 10 mg PO QID PRN 01/06/16 03/07/22 History DULoxetine HCL [Cymbalta] 60 mg PO DAILY 01/06/16 03/07/22 History oxyCODONE HCL [oxyCODONE HCL (IR)] 10 mg PO QID PRN 01/06/16 03/07/22 History Insulin NPH Hum/Reg Insulin Hm 12 - 16 unit SQ AC-BRKFST 03/17/16 03/07/22 History [NovoLIN 70-30 100 UNIT/ML VIAL] Insulin NPH Hum/Reg Insulin Hm 16 - 22 unit SQ AC-SUPPER 03/17/16 03/07/22 History [NovoLIN 70-30 100 UNIT/ML VIAL] Levothyroxine Sodium [Synthroid] 100 mcg PO DAILY 07/25/17 03/07/22 History Metoprolol Tartrate 25 mg PO BID 02/19/18 03/07/22 History FLUoxetine HCL [PROzac] 10 mg PO DAILY 05/22/18 03/07/22 History Aspirin EC [Ecotrin Low Dose] 81 mg PO DAILY 12/31/18 03/07/22 History Atorvastatin Calcium [Lipitor] 40 mg PO HS 12/31/18 03/07/22 History Furosemide [Lasix] 20 mg PO DAILY 08/09/19 03/07/22 History metFORMIN HCL ER [Glucophage XR] 1,000 mg PO BID 08/09/19 03/07/22 History Docusate Sodium [Dok] 100 mg PO BID PRN 08/11/19 03/07/22 History Ubidecarenone [Co Q-10] 100 mg PO DAILY 08/11/19 03/07/22 History Acetaminophen Tab [Tylenol Tab] 500 mg PO Q6H PRN 03/07/22 03/07/22 History Cholecalciferol [Vitamin D3 (25 50 mcg PO DAILY 03/07/22 03/07/22 History Mcg = 1000 Iu)] Cranberry Fruit Extract [Cranberry] 500 mg PO DAILY 03/07/22 03/07/22 History L.acidoph,Paracasei, B.lactis 1 cap PO DAILY 03/07/22 03/07/22 History [Probiotic] Pioglitazone HCl 15 mg PO DAILY 03/07/22 03/07/22 History Semaglutide [Ozempic] 1 mg SQ Q7D 03/07/22 History amLODIPine [Norvasc] 5 mg PO DAILY 03/07/22 03/07/22 History Allergies Allergy/AdvReac Type Severity Reaction Status Date / Time adhesive Allergy blisters Verified 03/07/22 22:14 amoxicillin Allergy Rash/Hives Verified 03/07/22 22:14 ciprofloxacin [From Cipro] AdvReac Dyspnea Verified 03/07/22 22:14 ciprofloxacin HCl AdvReac Dyspnea Verified 03/07/22 22:14 [From Cipro] Surgical - Exam Vital Signs Temp Pulse Resp BP Pulse Ox 98.8 F 89 20 129/57 98 03/07/22 10:18 03/07/22 10:18 03/07/22 10:18 03/07/22 10:18 03/07/22 10:18 Results - Labs 03/07/22 11:36 03/07/22 11:36 Abnormal Lab Results - Last 24 Hours (Table) 03/07/22 03/07/22 03/08/22 Range/Units 11:36 11:36 08:46 Plt Count 477 H (150-450) k/uL Sodium 135 L (137-145) mmol/L Chloride 97 L (98-107) mmol/L BUN 20 H (7-17) mg/dL Glucose 203 H (74-99) mg/dL POC Glucose (mg/dL) 196 H (70-110) mg/dL Alkaline Phosphatase 160 H (38-126) U/L Albumin 3.2 L (3.5-5.0) g/dL Diabetes panel 03/07/22 Range/Units 11:36 Sodium 135 L (137-145) mmol/L Potassium 3.8 (3.5-5.1) mmol/L Chloride 97 L (98-107) mmol/L Carbon Dioxide 28 (22-30) mmol/L BUN 20 H (7-17) mg/dL Creatinine 0.91 (0.52-1.04) mg/dL Glucose 203 H (74-99) mg/dL Calcium 8.7 (8.4-10.2) mg/dL AST 20 (14-36) U/L ALT 14 (4-34) U/L Alkaline Phosphatase 160 H (38-126) U/L Total Protein 6.7 (6.3-8.2) g/dL Albumin 3.2 L (3.5-5.0) g/dL Calcium panel 03/07/22 Range/Units 11:36 Calcium 8.7 (8.4-10.2) mg/dL Albumin 3.2 L (3.5-5.0) g/dL Pituitary panel 03/07/22 Range/Units 11:36 Sodium 135 L (137-145) mmol/L Potassium 3.8 (3.5-5.1) mmol/L Chloride 97 L (98-107) mmol/L Carbon Dioxide 28 (22-30) mmol/L BUN 20 H (7-17) mg/dL Creatinine 0.91 (0.52-1.04) mg/dL Glucose 203 H (74-99) mg/dL Calcium 8.7 (8.4-10.2) mg/dL Adrenal panel 03/07/22 Range/Units 11:36 Sodium 135 L (137-145) mmol/L Potassium 3.8 (3.5-5.1) mmol/L Chloride 97 L (98-107) mmol/L Carbon Dioxide 28 (22-30) mmol/L BUN 20 H (7-17) mg/dL Creatinine 0.91 (0.52-1.04) mg/dL Glucose 203 H (74-99) mg/dL Calcium 8.7 (8.4-10.2) mg/dL Total Bilirubin 0.6 (0.2-1.3) mg/dL AST 20 (14-36) U/L ALT 14 (4-34) U/L Alkaline Phosphatase 160 H (38-126) U/L Total Protein 6.7 (6.3-8.2) g/dL Albumin 3.2 L (3.5-5.0) g/dL
[2022-03-08] MEDS: FLUoxetine HCL 10 MG CAP PO SCH (16:37)
[2022-03-08 17:03] LABS: Glucose,Whole Blood 220 mg/dL (70-110)
[2022-03-08] MEDS: metroNIDAZOLE-NS PMX 500 MG in SALINE 1 100ML.BAG IVPB SCH (18:36)
[2022-03-08] MEDS: ATORVASTATIN 40 MG TAB PO SCH (21:06)
[2022-03-08] MEDS: HEPARIN SODIUM,PORCINE/PF 5,000 UNIT/0.5 ML SYRINGE SQ SCH (21:06)
[2022-03-08] MEDS: FAMOTIDINE 20 MG TAB PO SCH (21:06)
[2022-03-08] MEDS: INSULIN DETEMIR (LEVEMIR) 100 UNIT/ML SYR SQ SCH (21:06)
[2022-03-08] MEDS: CEFEPIME 1 GM in SODIUM CHLORIDE 0.9% 50 ML IVPB SCH (21:29)
--- NOTE | 2022-03-08 22:17 | CT ---
EXAM: CT Abdomen and Pelvis Without Intravenous Contrast CLINICAL HISTORY: ITS.REASON CT Reason: Enterocutaneous fistula TECHNIQUE: Axial computed tomography images of the abdomen and pelvis without intravenous contrast. This CT exam was performed using one or more of the following dose reduction techniques: automated exposure control, adjustment of the mA and/or kV according to patient size, and/or use of iterative reconstruction technique. COMPARISON: CT abdomen pelvis 2:16 PM, same day. Report unavailable, switching PACs systems, they cannot send prior reports. FINDINGS: Lung bases: Stable interstitial thickening and small hiatal hernia. Liver: Unremarkable. Gallbladder and bile ducts: Stable cholecystectomy. No ductal dilation. Pancreas: No ductal dilation. Spleen: Unremarkable. Adrenals: Stable calcified right adrenal mass measures 4.4 cm. Kidneys and ureters: No hydronephrosis. Stomach and bowel: Oral contrast has advanced, and is now within the pelvic small bowel loops, at the level of the anterior abdominal wall skin defect. No contrast is seen in the skin to suggest a fistula. Intraperitoneal space: No free air or fluid. Bones/joints: No acute fracture. Soft tissues: Large defect in the subcutaneous fat inferior to the pannus, with skin thickening. This extends to the anterior abdominal wall musculature. IMPRESSION: 1. No enterocutaneous fistula, as there is no leakage of enteric contrast into the subcutaneous fat in the pelvis, at the level of the large skin defect. 2. Stable exam.
[2022-03-09] MEDS: metroNIDAZOLE-NS PMX 500 MG in SALINE 1 100ML.BAG IVPB SCH ×5 (01:18→23:54)
[2022-03-09] MEDS: HYDROmorphone 1 MG/ML 1 ML SYRINGE IVP PRN ×4 (05:48→21:56)
[2022-03-09] MEDS: LEVOTHYROXINE 100 MCG TAB PO SCH (05:48)
[2022-03-09 07:22] LABS: Glucose,Whole Blood 135 mg/dL (70-110)
[2022-03-09] MEDS: INSULIN ASPART (NovoLOG) 100 UNIT/ML VIAL SQ SCH ×3 (07:57→18:59)
[2022-03-09] MEDS: CEFEPIME 1 GM in SODIUM CHLORIDE 0.9% 50 ML IVPB SCH ×2 (09:48→21:26)
[2022-03-09] MEDS: ASPIRIN 81 MG PO SCH (09:49)
[2022-03-09] MEDS: amLODIPine 5 MG TAB PO SCH (09:50)
[2022-03-09] MEDS: DULoxetine HCL 60 MG CAPSULE.DR PO SCH (09:50)
[2022-03-09] MEDS: FLUoxetine HCL 10 MG CAP PO SCH (09:51)
[2022-03-09] MEDS: FAMOTIDINE 20 MG TAB PO SCH ×2 (09:51→20:15)
[2022-03-09] MEDS: HEPARIN SODIUM,PORCINE/PF 5,000 UNIT/0.5 ML SYRINGE SQ SCH ×2 (09:52→20:15)
[2022-03-09 12:00] LABS: Glucose,Whole Blood 168 mg/dL (70-110)
--- NOTE | 2022-03-09 13:14 | XR ---
EXAMINATION TYPE: XR chest 1V portable DATE OF EXAM: 03/08/2022 CLINICAL HISTORY: Prior tobacco use. TECHNIQUE: Single AP portable upright view of the chest is obtained. COMPARISON: CT chest abdomen and pelvis September 09, 2021 and older CTA March 11, 2021 FINDINGS: Mild to moderate chronic parenchymal changes bilaterally are redemonstrated perhaps slight ly more prominent in the lower lungs from most recent prior CTs. No suspicious focal airspace opacity , pleural effusion, or pneumothorax seen bilaterally. Cardiac silhouette size is stable and upper castañeda its of normal with atherosclerotic change thoracic aorta. Degenerative change left glenohumeral joint redemonstrated. IMPRESSION: Chronic parenchymal changes greatest in the lower lungs show some interval progression f rom most recent exams. No suspicious acute pulmonary process clearly evident.
--- NOTE | 2022-03-09 13:59 | P.PN ---
Subjective Progress Note Date: 03/09/22 CHIEF COMPLAINT: Possible enterocutaneous fistula HISTORY OF PRESENT ILLNESS: Patient continues to have drainage from the lower mid abdomen. The drainage is now burgundy in color as well as producing air in the colostomy apparatus. Patient continues to have abdominal pain. The computed tomography scan from yesterday did not demonstrate and enterocutaneous fistula. There was no leakage or enteric contrast into the subcutaneous fat in the pelvis at the level of the large skin defect. Medicine service to place patient on antibiotics. Afebrile. Patient does have evidence of a UTI. Patient seen and examined with Dr. naidu PHYSICAL EXAM: VITAL SIGNS: Reviewed. GENERAL: Well-developed in no acute distress. HEENT: No sclera icterus. Extraocular movements grossly intact. Moist buccal mucosa. Head is atraumatic, normocephalic. ABDOMEN: Soft. Nondistended. Lower mid abdomen with opening to the skin surface drainage is now burgundy in color. Air also noted in the colostomy bag. Tender with palpation of area. NEUROLOGIC: Alert and oriented. Cranial nerves II through XII grossly intact. ASSESSMENT: 1. Possible enterocutaneous fistula PLAN: -Dr. Naidu is recommending another computed tomography scan of the abdomen and pelvis with oral contrast with a 6 hour prep for further evaluation of a fistula versus hematoma -Continue supportive care -Continue clear liquid diet -GI prophylaxis Pepcid and DVT prophylaxis subcu heparin Physician Canoe Builder note has been reviewed by physician. Signing provider agrees with the documented findings, assessment, and plan of care. Objective - Vital Signs Vital signs: Vital Signs Temp 97.8 F 03/09/22 07:25 Pulse 81 03/09/22 11:25 Resp 17 03/09/22 11:25 BP 132/70 03/09/22 07:25 Pulse Ox 90 L 03/09/22 07:25 FiO2 Intake & Output 03/08/22 03/09/22 03/09/22 18:59 06:59 18:59 Output Total 1300 Balance -1300 Weight 104.417 kg Output: Urine 1300 Other: Voiding Method Diaper Diaper Incontinent External Catheter # Voids 1 - Labs CBC & Chem 7: 03/07/22 11:36 03/07/22 11:36 Labs: Abnormal Lab Results - Last 24 Hours (Table) 09/07/22 09/08/22 09/08/22 Range/Units 17:02 07:22 11:59 POC Glucose (mg/dL) 220 H 135 H 168 H (70-110) mg/dL Microbiology - Last 24 Hours (Table) 03/08/22 09:47 Urine Culture - Preliminary Urine,Voided
--- NOTE | 2022-03-09 14:30 | P.PN ---
Progress Note - Text Progress Note Date: 03/09/22 - Chief Complaint Stool from abdominal wall Hospital course: This is a pleasant 76-year-old patient, follows with Dr. Linda Sanders. Chronic stable medical conditions include asthma, CAD, diabetes, decreased hearing, hypertension, hyperlipidemia, osteomyelitis, hypothyroid, does use a walker. Ovarian cancer treated with chemotherapy in 2018 and surgical resection. Iron deficiency anemia, urinary incontinence, decreased vision in the left eye. Patient's had multiple abdominal surgeries. Patient for about 4 days has noticed increasing lower abdominal pain and a burning sensation. Quite significant. Also noted drainage of stool from a orifice in the abdominal wall. Fever and chills. Decreased appetite. Diet. [place] to be a colonic fistula with abdominal wall. With stool coming out. Otherwise normally has a bowel movement daily . Last BM - 4 days ago. March 09: Decreased abdominal pain with medications. IV cefepime. IV Flagyl. Clear liquids. No nausea vomiting. Repeat CT abdomen showing no enterocutaneous fistula. Active Medications Acetaminophen (Acetaminophen Tab 500 Mg Tab) 500 mg PO Q6H PRN PRN Reason: Pain or Fever > 100.5 Amlodipine Besylate (Amlodipine 5 Mg Tab) 5 mg PO DAILY [facility] Last Admin: 03/09/22 09:50 Dose: 5 mg Aspirin (Aspirin 81 Mg) 81 mg PO DAILY [facility] Last Admin: 03/09/22 09:49 Dose: 81 mg Atorvastatin Calcium (Atorvastatin 40 Mg Tab) 40 mg PO HS [facility] Last Admin: 03/08/22 21:06 Dose: 40 mg Baclofen (Baclofen 10 Mg Tab) 10 mg PO QID PRN PRN Reason: Muscle Spasm Calcium Carbonate/Glycine (Calcium Carbonate 500 Mg Chewable) 1,000 mg PO Q4HR PRN PRN Reason: Dyspepsia Dextrose/Water (Dextrose 50% Syringe 50 Ml) 25 ml IVP PER PROTOCOL PRN; Protocol PRN Reason: Hypoglycemia Dextrose/Water (Dextrose 50% Syringe 50 Ml) 50 ml IVP PER PROTOCOL PRN; Protocol PRN Reason: Hypoglycemia Duloxetine HCl (Duloxetine Hcl 60 Mg Capsule.) 60 mg PO DAILY [facility] Last Admin: 03/09/22 09:50 Dose: 60 mg Famotidine (Famotidine 20 Mg Tab) 20 mg PO BID [facility] Last Admin: 03/09/22 09:51 Dose: 20 mg Fluoxetine HCl (Fluoxetine Hcl 10 Mg Cap) 10 mg PO DAILY [facility] Last Admin: 03/09/22 09:51 Dose: 10 mg Heparin Sodium (Porcine) (Heparin Sodium,Porcine/Pf 5,000 Unit/0.5 Ml Syringe) 5,000 unit SQ Q12HR [facility] Last Admin: 03/09/22 09:52 Dose: 5,000 unit Hydromorphone HCl (Hydromorphone 1 Mg/Ml 1 Ml Syringe) 1 mg IVP Q3H PRN PRN Reason: Pain Last Admin: 03/09/22 09:01 Dose: 1 mg Cefepime HCl 1 gm/ Sodium (Chloride) 50 mls @ 12.5 mls/hr IVPB Q12HR [facility]; Protocol Last Admin: 03/09/22 09:48 Dose: 12.5 mls/hr Metronidazole 500 mg/ IV (Solution) 100 mls @ 100 mls/hr IVPB Q6HR [facility]; Protocol Last Admin: 03/09/22 13:04 Dose: 100 mls/hr Insulin Aspart (Insulin Aspart (Novolog) 100 Unit/Ml Vial) 0 unit SQ AC-TID [facility]; Protocol Last Admin: 03/09/22 12:24 Dose: 2 unit Insulin Detemir (Insulin Detemir (Levemir) 100 Unit/Ml Syr) 18 unit SQ HS [facility] Last Admin: 03/08/22 21:06 Dose: 18 unit Iopamidol (Iopamidol Contrast (Oral Use) Vial) 30 ml PO Q60M PRN PRN Reason: CT Scan Stop: 03/10/22 12:47 Levothyroxine Sodium (Levothyroxine 100 Mcg Tab) 100 mcg PO DAILY@0630 [facility] Last Admin: 03/09/22 05:48 Dose: 100 mcg Lorazepam (Lorazepam 0.5 Mg Tab) 0.5 mg PO Q6HR PRN PRN Reason: Anxiety Melatonin (Melatonin 3 Mg Tablet) 3 mg PO HS PRN PRN Reason: Insomnia Last Admin: 03/08/22 21:06 Dose: 3 mg Naloxone HCl (Naloxone 0.4 Mg/Ml 1 Ml Vial) 0.2 mg IV Q2M PRN PRN Reason: Opioid Reversal Ondansetron HCl (Ondansetron 4 Mg/2 Ml Vial) 4 mg IVP Q6HR PRN PRN Reason: Nausea And Vomiting Last Admin: 03/08/22 03:38 Dose: 4 mg Oxycodone HCl (Oxycodone Hcl 5 Mg Tab) 10 mg PO QID PRN PRN Reason: Pain Past medical history to include: COPD, CAD, ovarian cancer, diabetes, heart of feeding, hypertension, hyperlipidemia, osteomyelitis redness, hypothyroid, urinary incontinence, 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 Social history: Lives alone. Has a cane and a walker. Smoked from 9060 08/20/1997. One or 2 p acks a day. Alcohol occasionally. Family history: Patient adopted. Physical examination: VITAL SIGNS: 98.6, 87, 18, 119/69, 93% room air GENERAL: Laying in bed, not in distress EYES: Pupils equal. Conjunctiva normal. HEENT: External appearance of nose and ears normal, oral cavity grossly normal. Decreased hearing NECK: JVD not raised; masses not palpable. HEART: First and second heart sounds are normal; no edema. LUNGS: Respiratory rate normal; clear to auscultation. ABDOMEN: Soft, lower abdominal tenderness, with brown stool coming out the fistula, liver spleen not palpable, no masses palpable. PSYCH: Alert and oriented x3; mood and affect normal. MUSCULOSKELETAL:No Clubbing/cyanosis;muscles-grossly intact. Evidence of OA INVESTIGATIONS, reviewed in the clinical context: Computed tomography scan abdomen and pelvis [March 09]: No fistula reported White count 10.1 hemoglobin 13.4 platelets 477. Sodium 135, potassium 3.8 creatinine 0.91 UA positive for leukoesterase, nitrite, WBC EKG tracing personally reviewed by me-rate 85. Right bundle-branch block. Computed tomography scan abdomen and pelvis: It is present within subcutaneous tissues midline pelvis. Extending to abdominal wall. Bowel loops appeared directly adjacent. Right AV stone, nonobstructive. Assessment and plan: -Patient presented what appears to be a colon abdominal wall fistula putting out stool. clear liquid diet. IV cefepime. IV Flagyl. Fecal bag over the fistula site. -Suspect underlying localized intra-abdominal abscess. Repeat computed tomography scan of abdomen without fainting major -Diabetes mellitus type 2, chronically on insulin Levemir. Sliding scale. Hold oral hypoglycemic. -Essential hypertension Norvasc, metoprolol -Hypothyroid Synthroid 100 g a -Anxiety and depression Prozac and Cymbalta -Hyperlipidemia Lipitor. Continue IV cefepime and Flagyl. Oral medications to continue. Clear liquid diet. Unsure about the computed tomography scan findings in the clinical context. Follow with surgery. Thank you Dr. Harrison
[2022-03-09] MEDS: IOPAMIDOL CONTRAST (ORAL USE) VIAL PO PRN ×2 (15:18→17:50)
[2022-03-09 17:05] LABS: Glucose,Whole Blood 211 mg/dL (70-110)
[2022-03-09] MEDS: ATORVASTATIN 40 MG TAB PO SCH (20:14)
[2022-03-09] MEDS: INSULIN DETEMIR (LEVEMIR) 100 UNIT/ML SYR SQ SCH (21:26)
--- NOTE | 2022-03-09 23:02 | CT ---
EXAMINATION TYPE: CT abdomen pelvis wo con DATE OF EXAM: 03/09/2022 COMPARISON: Yesterday HISTORY: possible enterocutaneous fistula, hematoma. ordering physcian wanted a 6 hour prep/delay of oral contrast, so contrast was divied up amongst drinks. per pt. she had a drink around 230-3 ,430, 6 and 8pm. pt had same scan done yesterday 03.08.22 with a normal 1 1/2 hour picture post contrast and t hen another scan [address] DLP: 1290.4 mGycm Automated exposure control for dose reduction was used. Images obtained from the diaphragm to the floor the pelvis with the oral contrast. There is some patchy interstitial infiltrate and atelectasis at the lung bases. Heart size is fairly normal. No pericardial effusion. Liver spleen stomach and pancreas appear intact. There are clips fro m cholecystectomy. The bile ducts are not dilated. No evidence of a bowel obstruction. There is oral contrast material within the large and small bowel. Contrast extends down to the rectum. There is no adrenal mass. Left kidney is normal size and contour. No hydronephrosis. The right kidney shows 1 mm calculus lower pole. There is enlarged right adrenal gland with mixed density that measur es 5 x 4 cm. There is multiple punctate calcifications in the right adrenal gland. There is no retrop eritoneal adenopathy. Abdominal aorta is atheromatous. There is soft tissue air in the subcutaneous t issues over the lower anterior abdomen extending to the skin surface. There is a 6 small 1 cm density that could be surgical clip within the complex fluid in the subcutaneous tissues in the anterior mid line lower abdomen. I see no definite oral contrast material within the subcutaneous fluid.. The def ect measures 6 x 4 cm. There are some sigmoid diverticula. No sign of pneumoperitoneum. No sign of a bowel obstruction. There is some wall thickening and lack of contrast opacification of the bowel of the mid sigmoid colo n. A mass is possible. There is T12 compression fracture in 80% with anterior wedging. The bony pelvis is intact. IMPRESSION: Complex fluid in the subcutaneous anterior lower abdomen that could be a fistula and not changed comp ared to CT scan yesterday. The 12 old compression fracture unchanged. No contrast extravasation. No oral contrast material seen within the complex fluid. Tiny nonobstructing right renal calculus. Complex right adrenal mass not changed compared to old CT s can of 09/09/2021 and likely benign. There is some wall thickening of the sigmoid colon. There are sigmoid diverticula. Tumor mass not exc luded. This could also be hypertrophic inflammatory changes related to diverticular disease. No signi ficant fat stranding seen to suggest diverticulitis.
[2022-03-10] MEDS: metroNIDAZOLE-NS PMX 500 MG in SALINE 1 100ML.BAG IVPB SCH ×4 (06:00→23:30)
[2022-03-10] MEDS: LEVOTHYROXINE 100 MCG TAB PO SCH (06:00)
[2022-03-10 07:12] LABS: Glucose,Whole Blood 110 mg/dL (70-110)
[2022-03-10 07:20] LABS: African American GFR (CKD) 89 (>60 ml/min/1.73 sqM); Anion Gap 6 mmol/L; Blood Urea Nitrogen 10 mg/dL (7-17); Calcium 8.6 mg/dL (8.4-10.2); Carbon Dioxide 31 mmol/L (22-30); Chloride 99 mmol/L (98-107); Glucose 110 mg/dL (74-99); Non-African American GFR(CKD) 77 (>60 ml/min/1.73 sqM); Potassium 4.3 mmol/L (3.5-5.1); Sodium 136 mmol/L (137-145)
[2022-03-10] MEDS: INSULIN ASPART (NovoLOG) 100 UNIT/ML VIAL SQ SCH ×3 (07:25→16:46)
[2022-03-10 09:07] LABS: Basophils # (A) 0.06 X 10*3/uL (0.00-0.10); Basophils % (A) 0.7 %; Eosinophils # (A) 0.26 X 10*3/uL (0.04-0.35); HCT 39.6 % (37.2-46.3); HGB 12.4 g/dL (12.0-15.0); Immature Grans, Automated 0.9 %; Lymphocytes # (A) 0.94 X 10*3/uL (0.90-5.00); MCH 27.9 pg (27.0-32.0); MCHC 31.3 g/dL (32.0-37.0); Mean Platelet Volume 10.6 fL (9.5-12.2); Monocytes # (A) 1.19 X 10*3/uL (0.20-1.00); Monocytes % (A) 13.9 %; NRBC Per 100 WBC 0 /100 WBCS (0.0-0.0); Neutrophils # (A) 6.01 X 10*3/uL (1.80-7.70); Neutrophils % (A) 70.5 %; Platelet Count 389 X 10*3/uL (140-440); RBC 4.45 X 10*6/uL (4.10-5.20); RDW 13.5 % (11.5-14.5); WBC 8.54 X 10*3/uL (4.50-10.00)
[2022-03-10] MEDS: amLODIPine 5 MG TAB PO SCH (09:09)
[2022-03-10] MEDS: ASPIRIN 81 MG PO SCH (09:09)
[2022-03-10] MEDS: FAMOTIDINE 20 MG TAB PO SCH ×2 (09:10→21:31)
[2022-03-10] MEDS: DULoxetine HCL 60 MG CAPSULE.DR PO SCH (09:10)
[2022-03-10] MEDS: FLUoxetine HCL 10 MG CAP PO SCH (09:14)
[2022-03-10] MEDS: HEPARIN SODIUM,PORCINE/PF 5,000 UNIT/0.5 ML SYRINGE SQ SCH ×2 (09:14→21:31)
[2022-03-10] MEDS: CEFEPIME 1 GM in SODIUM CHLORIDE 0.9% 50 ML IVPB SCH ×2 (09:15→21:31)
[2022-03-10] MEDS: HYDROmorphone 1 MG/ML 1 ML SYRINGE IVP PRN ×2 (09:26→21:32)
[2022-03-10 11:59] LABS: Glucose,Whole Blood 139 mg/dL (70-110)
--- NOTE | 2022-03-10 13:12 | P.PN ---
Progress Note - Text Progress Note Date: 03/10/22 - Chief Complaint Stool from abdominal wall Hospital course: This is a pleasant 76-year-old patient, follows with Dr. Linda Sanders. Chronic stable medical conditions include asthma, CAD, diabetes, decreased hearing, hypertension, hyperlipidemia, osteomyelitis, hypothyroid, does use a walker. Ovarian cancer treated with chemotherapy in 2018 and surgical resection. Iron deficiency anemia, urinary incontinence, decreased vision in the left eye. Patient's had multiple abdominal surgeries. Patient for about 4 days has noticed increasing lower abdominal pain and a burning sensation. Quite significant. Also noted drainage of stool from a orifice in the abdominal wall. Fever and chills. Decreased appetite. Diet. [employer] to be a colonic fistula with abdominal wall. With stool coming out. Otherwise normally has a bowel movement daily . Last BM - 4 days ago. March 09: Decreased abdominal pain with medications. IV cefepime. IV Flagyl. Clear liquids. No nausea vomiting. Repeat CT abdomen showing no enterocutaneous fistula. March 10: Pain better controlled. Bipolar fistula with some output. Awaiting further input from surgery. Continue IV antibiotics. Discussed with patient. Active Medications Acetaminophen (Acetaminophen Tab 500 Mg Tab) 500 mg PO Q6H PRN PRN Reason: Pain or Fever > 100.5 Amlodipine Besylate (Amlodipine 5 Mg Tab) 5 mg PO DAILY [facility] Last Admin: 03/10/22 09:09 Dose: 5 mg Aspirin (Aspirin 81 Mg) 81 mg PO DAILY [facility] Last Admin: 03/10/22 09:09 Dose: 81 mg Atorvastatin Calcium (Atorvastatin 40 Mg Tab) 40 mg PO HS [facility] Last Admin: 03/09/22 20:14 Dose: 40 mg Baclofen (Baclofen 10 Mg Tab) 10 mg PO QID PRN PRN Reason: Muscle Spasm Calcium Carbonate/Glycine (Calcium Carbonate 500 Mg Chewable) 1,000 mg PO Q4HR PRN PRN Reason: Dyspepsia Dextrose/Water (Dextrose 50% Syringe 50 Ml) 25 ml IVP PER PROTOCOL PRN; Protocol PRN Reason: Hypoglycemia Dextrose/Water (Dextrose 50% Syringe 50 Ml) 50 ml IVP PER PROTOCOL PRN; Protocol PRN Reason: Hypoglycemia Duloxetine HCl (Duloxetine Hcl 60 Mg Emile.) 60 mg PO DAILY [facility] Last Admin: 03/10/22 09:10 Dose: 60 mg Famotidine (Famotidine 20 Mg Tab) 20 mg PO BID [facility] Last Admin: 03/10/22 09:10 Dose: 20 mg Fluoxetine HCl (Fluoxetine Hcl 10 Mg Cap) 10 mg PO DAILY [facility] Last Admin: 03/10/22 09:14 Dose: 10 mg Heparin Sodium (Porcine) (Heparin Sodium,Porcine/Pf 5,000 Unit/0.5 Ml Syringe) 5,000 unit SQ Q12HR [facility] Last Admin: 03/10/22 09:14 Dose: 5,000 unit Hydromorphone HCl (Hydromorphone 1 Mg/Ml 1 Ml Syringe) 1 mg IVP Q3H PRN PRN Reason: Pain Last Admin: 03/10/22 09:26 Dose: 1 mg Cefepime HCl 1 gm/ Sodium (Chloride) 50 mls @ 12.5 mls/hr IVPB Q12HR [facility]; Protocol Last Admin: 03/10/22 09:15 Dose: 12.5 mls/hr Metronidazole 500 mg/ IV (Solution) 100 mls @ 100 mls/hr IVPB Q6HR [facility]; Protocol Last Admin: 03/10/22 12:31 Dose: 100 mls/hr Insulin Aspart (Insulin Aspart (Novolog) 100 Unit/Ml Vial) 0 unit SQ AC-TID [facility]; Protocol Last Admin: 03/10/22 12:27 Dose: Not Given Insulin Detemir (Insulin Detemir (Levemir) 100 Unit/Ml Syr) 18 unit SQ HS [facility] Last Admin: 03/09/22 21:26 Dose: 18 unit Levothyroxine Sodium (Levothyroxine 100 Mcg Tab) 100 mcg PO DAILY@0630 [facility] Last Admin: 03/10/22 06:00 Dose: 100 mcg Lorazepam (Lorazepam 0.5 Mg Tab) 0.5 mg PO Q6HR PRN PRN Reason: Anxiety Melatonin (Melatonin 3 Mg Tablet) 3 mg PO HS PRN PRN Reason: Insomnia Last Admin: 03/08/22 21:06 Dose: 3 mg Naloxone HCl (Naloxone 0.4 Mg/Ml 1 Ml Vial) 0.2 mg IV Q2M PRN PRN Reason: Opioid Reversal Ondansetron HCl (Ondansetron 4 Mg/2 Ml Vial) 4 mg IVP Q6HR PRN PRN Reason: Nausea And Vomiting Last Admin: 03/08/22 03:38 Dose: 4 mg Oxycodone HCl (Oxycodone Hcl 5 Mg Tab) 10 mg PO QID PRN PRN Reason: Pain Last Admin: 03/10/22 04:33 Dose: 10 mg Past medical history to include: COPD, CAD, ovarian cancer, diabetes, heart of feeding, hypertension, hyperlipidemia, osteomyelitis redness, hypothyroid, urinary incontinence, 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 Social history: Lives alone. Has a cane and a walker. Smoked from 9060 08/20/1997. One or 2 packs a day. Alcohol occasionally. Family history: Patient adopted. Physical examination: VITAL SIGNS: 98.2, 76, 18, 130/71, 95% room air GENERAL: Laying in bed, not in distress EYES: Pupils equal. Conjunctiva normal. HEENT: External appearance of nose and ears normal, oral cavity grossly normal. Decreased hearing NECK: JVD not raised; masses not palpable. HEART: First and second heart sounds are normal; no edema. LUNGS: Respiratory rate normal; clear to auscultation. ABDOMEN: Soft, decreased lower abdominal tenderness, bag over fistula, liver spleen not palpable, no masses palpable. PSYCH: Alert and oriented x3; mood and affect normal. MUSCULOSKELETAL:No Clubbing/cyanosis;muscles-grossly intact. Evidence of OA INVESTIGATIONS, reviewed in the clinical context: Computed tomography scan abdomen and pelvis [March 09]: No fistula reported White count 10.1 hemoglobin 13.4 platelets 477. Sodium 135, potassium 3.8 creatinine 0.91 UA positive for leukoesterase, nitrite, WBC EKG tracing personally reviewed by me-rate 85. Right bundle-branch block. Computed tomography scan abdomen and pelvis: It is present within subcutaneous tissues midline pelvis. Extending to abdominal wall. Bowel loops appeared directly adjacent. Right AV stone, nonobstructive. Assessment and plan: -Patient presented what appears to be a colon abdominal wall fistula putting out stool. Computed tomography scan does not show that with clinically appears to be the obvious. clear liquid diet. IV cefepime. IV Flagyl. Fecal bag over the fistula site. Follow with surgery. -Suspect underlying localized intra-abdominal abscess. Repeat computed tomography scan of abdomen without . Significant finding. -Diabetes mellitus type 2, chronically on insulin Levemir. Sliding scale. Hold oral hypoglycemic. -Essential hypertension Norvasc, metoprolol -Hypothyroid Synthroid 100 g a -Anxiety and depression Prozac and Cymbalta -Hyperlipidemia Lipitor. Continue IV cefepime and Flagyl. Oral medications to continue. Clear liquid diet. Follow with surgery. Thank you Dr. Harrison
--- NOTE | 2022-03-10 13:51 | P.PN ---
Subjective Progress Note Date: 03/10/22 CHIEF COMPLAINT: Possible enterocutaneous fistula HISTORY OF PRESENT ILLNESS: Patient continues to have drainage from the lower mid abdomen. The drainage is now tannish in color. Patient continues to have lower abdominal pain. Computed tomography scan abdomen and pelvis showing complex fluid in the subcutaneous anterior lower abdomen that could be a fistula and not change compared to computed tomography scan yesterday. There is some wall thickening of the sigmoid colon. There is sigmoid diverticula. Tumor mass not excluded. No significant fat stranding to suggest diverticulitis. Afebrile. WBC 8.5 for Hgb 12.4 platelets 389 PHYSICAL EXAM: VITAL SIGNS: Reviewed. GENERAL: Well-developed in no acute distress. HEENT: No sclera icterus. Extraocular movements grossly intact. Moist buccal mucosa. Head is atraumatic, normocephalic. ABDOMEN: Soft. Nondistended. Lower mid abdomen with opening to the skin surface drainage is lipscomb in color. Tender with palpation of area. NEUROLOGIC: Alert and oriented. Cranial nerves II through XII grossly intact. ASSESSMENT: 1. Possible enterocutaneous fistula PLAN: -Discussed CAT scan findings with Dr. naidu. Further recommendations f orthcoming per surgeon -Continue supportive care -Continue clear liquid diet -GI prophylaxis Pepcid and DVT prophylaxis subcu heparin Physician Phosphatic Fertilizer Supervisor note has been reviewed by physician. Signing provider agrees with the documented findings, assessment, and plan of care. Objective - Vital Signs Vital signs: Vital Signs Temp 98.8 F 03/10/22 13:12 Pulse 86 03/10/22 13:12 Resp 18 03/10/22 13:12 BP 123/69 03/10/22 13:12 Pulse Ox 95 03/10/22 13:12 FiO2 Intake & Output 03/09/22 03/10/22 03/10/22 18:59 06:59 18:59 Intake Total 490 Output Total 75 1600 Balance -75 -1110 Intake: Intake, IV Titration 250 Amount Cefepime 1 gm In Sodium 50 Chloride 0.9% 50 ml @ 12. 5 mls/hr IVPB Q12HR [facility] Rx#:[id number] metroNIDAZOLE-NS PMX 500 200 mg In Saline 1 100ml.bag @ 100 mls/hr IVPB Q6HR [facility] Rx#:[id number] Oral 240 Output: Urine 1600 Stool 75 Other: Voiding Method Incontinent External Catheter External Catheter - Labs CBC & Chem 7: 09/09/22 06:19 03/10/22 06:19 Labs: Abnormal Lab Results - Last 24 Hours (Table) 03/09/22 03/10/22 03/10/22 Range/Units 17:03 06:19 06:19 MCHC 31.3 L (32.0-37.0) g/dL Immature Gran # 0.08 H (0.00-0.04) X 10*3/uL Monocytes # 1.19 H (0.20-1.00) X 10*3/uL Sodium 136 L (137-145) mmol/L Carbon Dioxide 31 H (22-30) mmol/L Glucose 110 H (74-99) mg/dL POC Glucose (mg/dL) 211 H (70-110) mg/dL C-Reactive Protein 6.0 H (<1.0) mg/dL 03/10/22 Range/Units 11:57 MCHC (32.0-37.0) g/dL Immature Gran # (0.00-0.04) X 10*3/uL Monocytes # (0.20-1.00) X 10*3/uL Sodium (137-145) mmol/L Carbon Dioxide (22-30) mmol/L Glucose (74-99) mg/dL POC Glucose (mg/dL) 139 H (70-110) mg/dL C-Reactive Protein (<1.0) mg/dL Microbiology - Last 24 Hours (Table) 03/08/22 09:47 Urine Culture - Preliminary Urine,Voided Gram Neg Bacilli
[2022-03-10 14:15] VITALS: BMI 40.7
--- NOTE | 2022-03-10 15:18 | P.DS ---
Providers Date of admission: 03/07/22 15:00 Expected date of discharge: 03/10/22 Attending physician: Parviz Naidu Consults: 03/08/22 03:51 Consult Physician Routine Consulting Provider: Milind Martel Consult Reason/Comments: medical management Do you want consulting provider notified?: Yes, Notify in am Placement Type Exists?: Yes Primary care physician: Linda Sanders Hospital Course: Discharge diagnosis 1. Enterocutaneous fistula Hospital course This is a 76-year-old female with a known history of right ovarian cancer status post removal of ovarian tumor and chemotherapy in 2018 at [facility]. Patient also has surgical history of hysterectomy, appendectomy and cholecystectomy. Patient reports Sunday she was getting up from the bathroom and noted drainage coming from the bottom of her abdomen. She reported that the drainage was foul smelling and brown in color. Patient admitted the hospital for concerns of abdominal fistula. She had a computed tomography scan of abdomen and pelvis with IV contrast that showed areas present within the subcutaneous tissue midline pelvis. This extends to the anterior abdominal wall. Bowel loops appear directly adjacent extending towards the abdominal wall. Fistula formation should be considered at this level. Patient had another repeat CAT scan with a six-hour contrast prep the did show complex fluid in the subcutaneous anterior lower abdomen that could be a fistula. There is also some wall thickening of the sigmoid colon. Tumor mass not excluded. These findings were discussed with Dr. naidu. Patient is still continuing to have drainage from the fistula. The drainage is lipscomb in color. Her white count remains normal. She's afebrile. Her pain is controlled. She is stable for discharge. Discussed case with medicine service they will be discharging her with antibiotics. She can be discharged with a regular diet. She'll follow-up with Dr. naidu next Sunday in the office to discuss further surgical intervention on the enterocutaneous fistula. Please refer to chart for any further details. Physician Nurse Staff [facility] note has been reviewed by physician. Signing provider agrees with the documented findings, assessment, and plan of care. Patient Condition at Discharge: Stable Plan - Discharge Summary Discharge Rx Participant: Yes New Discharge Prescriptions: New cefUROXime axetiL [Ceftin] 500 mg PO BID #20 tab metroNIDAZOLE [Flagyl] 500 mg PO QID #40 tab Continue oxyCODONE HCL [oxyCODONE HCL (IR)] 10 mg PO QID PRN PRN Reason: Pain DULoxetine HCL [Cymbalta] 60 mg PO DAILY Baclofen 10 mg PO QID PRN PRN Reason: Muscle Spasm Insulin NPH Hum/Reg Insulin Hm [NovoLIN 70-30 100 UNIT/ML VIAL] 12 - 16 unit SQ AC-BRKFST Insulin NPH Hum/Reg Insulin Hm [NovoLIN 70-30 100 UNIT/ML VIAL] 16 - 22 unit SQ AC-SUPPER Levothyroxine Sodium [Synthroid] 100 mcg PO DAILY FLUoxetine HCL [PROzac] 10 mg PO DAILY Aspirin EC [Ecotrin Low Dose] 81 mg PO DAILY Atorvastatin Calcium [Lipitor] 40 mg PO HS Furosemide [Lasix] 20 mg PO DAILY Ubidecarenone [Co Q-10] 100 mg PO DAILY Acetaminophen Tab [Tylenol] 500 mg PO Q6H PRN PRN Reason: Pain Or Fever > 100.5 amLODIPine [Norvasc] 5 mg PO DAILY Cranberry Fruit Extract [Cranberry] 500 mg PO DAILY L.acidoph,Paracasei, B.lactis [Probiotic] 1 cap PO DAILY Semaglutide [Ozempic] 1 mg SQ Q7D Cholecalciferol [Vitamin D3 (25 Mcg = 1000 Iu)] 50 mcg PO DAILY Changed Metoprolol Tartrate 12.5 mg PO BID #0 Discontinued metFORMIN HCL ER [Glucophage XR] 1,000 mg PO BID Docusate Sodium [Dok] 100 mg PO BID PRN PRN Reason: Constipation Pioglitazone HCl 15 mg PO DAILY Discharge Medication List Baclofen 10 mg PO QID PRN 01/06/16 [History] DULoxetine HCL [Cymbalta] 60 mg PO DAILY 01/06/16 [History] oxyCODONE HCL [oxyCODONE HCL (IR)] 10 mg PO QID PRN 01/06/16 [History] Insulin NPH Hum/Reg Insulin Hm [NovoLIN 70-30 100 UNIT/ML VIAL] 12 - 16 unit SQ AC-BRKFST 03/17/16 [History] Insulin NPH Hum/Reg Insulin Hm [NovoLIN 70-30 100 UNIT/ML VIAL] 16 - 22 unit SQ AC-SUPPER 03/17/16 [History] Levothyroxine Sodium [Synthroid] 100 mcg PO DAILY 07/25/17 [History] FLUoxetine HCL [PROzac] 10 mg PO DAILY 05/22/18 [History] Aspirin EC [Ecotrin Low Dose] 81 mg PO DAILY 12/31/18 [History] Atorvastatin Calcium [Lipitor] 40 mg PO HS 12/31/18 [History] Furosemide [Lasix] 20 mg PO DAILY 08/09/19 [History] Ubidecarenone [Co Q-10] 100 mg PO DAILY 08/11/19 [History] Acetaminophen Tab [Tylenol] 500 mg PO Q6H PRN 03/07/22 [History] Cholecalciferol [Vitamin D3 (25 Mcg = 1000 Iu)] 50 mcg PO DAILY 03/07/22 [History] Cranberry Fruit Extract [Cranberry] 500 mg PO DAILY 03/07/22 [History] L.acidoph,Paracasei, B.lactis [Probiotic] 1 cap PO DAILY 03/07/22 [History] Semaglutide [Ozempic] 1 mg SQ Q7D 03/07/22 [History] amLODIPine [Norvasc] 5 mg PO DAILY 03/07/22 [History] Metoprolol Tartrate 12.5 mg PO BID #0 03/10/22 [Rx] cefUROXime axetiL [Ceftin] 500 mg PO BID #20 tab 03/10/22 [Rx] metroNIDAZOLE [Flagyl] 500 mg PO QID #40 tab 03/10/22 [Rx] Follow up Appointment(s)/Referral(s): Linda Sanders MD [Primary Care Provider] - 1-2 days [facility] Visiting Nurse, [NON-STAFF] - As Needed Parviz Naidu MD [STAFF PHYSICIAN] - 03/14/22 Activity/Diet/Wound Care/Special Instructions: Metoprolol tartrate is not a new medications. Only dose changed. Discharge Disposition: HOME SELF-CARE
[2022-03-10 16:57] LABS: Glucose,Whole Blood 133 mg/dL (70-110)
[2022-03-10 21:31] LABS: Glucose,Whole Blood 237 mg/dL (70-110)
[2022-03-10] MEDS: ATORVASTATIN 40 MG TAB PO SCH (21:31)
[2022-03-10] MEDS: INSULIN DETEMIR (LEVEMIR) 100 UNIT/ML SYR SQ SCH (21:32)
[2022-03-10] MEDS: diphenhydrAMINE 25 MG CAP PO PRN (22:18)
[2022-03-11] MEDS: HYDROmorphone 1 MG/ML 1 ML SYRINGE IVP PRN (04:34)
[2022-03-11] MEDS: metroNIDAZOLE-NS PMX 500 MG in SALINE 1 100ML.BAG IVPB SCH ×3 (05:41→16:45)
[2022-03-11] MEDS: LEVOTHYROXINE 100 MCG TAB PO SCH (05:41)
[2022-03-11 07:02] LABS: Glucose,Whole Blood 115 mg/dL (70-110)
[2022-03-11] MEDS: INSULIN ASPART (NovoLOG) 100 UNIT/ML VIAL SQ SCH ×3 (07:48→16:46)
[2022-03-11] MEDS: ASPIRIN 81 MG PO SCH (08:53)
[2022-03-11] MEDS: DULoxetine HCL 60 MG CAPSULE.DR PO SCH (08:53)
[2022-03-11] MEDS: HEPARIN SODIUM,PORCINE/PF 5,000 UNIT/0.5 ML SYRINGE SQ SCH ×2 (08:53→20:53)
[2022-03-11] MEDS: FAMOTIDINE 20 MG TAB PO SCH ×2 (08:53→20:54)
[2022-03-11] MEDS: diphenhydrAMINE 25 MG CAP PO PRN (08:54)
[2022-03-11] MEDS: amLODIPine 5 MG TAB PO SCH (08:54)
--- NOTE | 2022-03-11 09:07 | P.PN ---
Progress Note - Text Progress Note Date: 03/11/22 Patient remains stable. Patient was to be just discharged yesterday however the patient felt that she could not take care of herself at home. On exam vital signs are stable. Abdomen soft. 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 I discussed the patient that she will need to have surgery and possible small bowel resection to repair this fistula. The patient is currently reluctant to have surgery. She wishes to have consultation Dr. Wilkes. This will be arranged on Sunday. I did offer the patient to be transferred to the facility that had her last surgery. A she will be observed.
[2022-03-11] MEDS: CEFEPIME 1 GM in SODIUM CHLORIDE 0.9% 50 ML IVPB SCH ×2 (09:47→20:53)
[2022-03-11] MEDS: FLUoxetine HCL 10 MG CAP PO SCH (09:48)
[2022-03-11 11:34] LABS: Glucose,Whole Blood 226 mg/dL (70-110)
[2022-03-11 16:29] LABS: Glucose,Whole Blood 184 mg/dL (70-110)
[2022-03-11 20:21] LABS: Glucose,Whole Blood 236 mg/dL (70-110)
[2022-03-11] MEDS: INSULIN DETEMIR (LEVEMIR) 100 UNIT/ML SYR SQ SCH (20:53)
[2022-03-11] MEDS: ATORVASTATIN 40 MG TAB PO SCH (20:54)
[2022-03-12] MEDS: metroNIDAZOLE-NS PMX 500 MG in SALINE 1 100ML.BAG IVPB SCH ×4 (00:13→17:12)
[2022-03-12] MEDS: LEVOTHYROXINE 100 MCG TAB PO SCH (05:35)
[2022-03-12 07:16] LABS: Glucose,Whole Blood 131 mg/dL (70-110)
[2022-03-12] MEDS: INSULIN ASPART (NovoLOG) 100 UNIT/ML VIAL SQ SCH ×3 (07:18→17:11)
[2022-03-12] MEDS: amLODIPine 5 MG TAB PO SCH (07:47)
[2022-03-12] MEDS: FAMOTIDINE 20 MG TAB PO SCH ×2 (07:47→21:27)
[2022-03-12] MEDS: ASPIRIN 81 MG PO SCH (07:48)
[2022-03-12] MEDS: HEPARIN SODIUM,PORCINE/PF 5,000 UNIT/0.5 ML SYRINGE SQ SCH ×2 (07:48→21:28)
[2022-03-12] MEDS: FLUoxetine HCL 10 MG CAP PO SCH (07:48)
[2022-03-12] MEDS: DULoxetine HCL 60 MG CAPSULE.DR PO SCH (07:48)
[2022-03-12] MEDS: CEFEPIME 1 GM in SODIUM CHLORIDE 0.9% 50 ML IVPB SCH ×2 (07:48→21:28)
--- NOTE | 2022-03-12 10:35 | P.PN ---
Progress Note - Text Progress Note Date: 03/12/22 Patient remains well. She's had some gaseous output through her enterocutaneous fistula. She denies any abdominal pain. On exam vital signs are stable. Abdomen is soft. There is a enterocutaneous fistula near the lower midline. The. Patient states that she wishes to talk to Dr. marcelo prior to any surgical intervention. I did discuss her that her enterocutaneous fistula is a chronic issue that does not require immediate surgery. I even offered to have her transferred to her original surgeon.
[2022-03-12 11:38] LABS: Glucose,Whole Blood 181 mg/dL (70-110)
[2022-03-12 16:45] LABS: Glucose,Whole Blood 236 mg/dL (70-110)
[2022-03-12 20:29] LABS: Glucose,Whole Blood 203 mg/dL (70-110)
[2022-03-12] MEDS: INSULIN DETEMIR (LEVEMIR) 100 UNIT/ML SYR SQ SCH (21:27)
[2022-03-12] MEDS: ATORVASTATIN 40 MG TAB PO SCH (21:29)
[2022-03-13] MEDS: metroNIDAZOLE-NS PMX 500 MG in SALINE 1 100ML.BAG IVPB SCH ×3 (01:10→11:42)
--- NOTE | 2022-03-13 03:20 | P.PN ---
Subjective Progress Note Date: 03/11/22 This is a pleasant 76-year-old patient, follows with Dr. Linda Sanders. Chronic stable medical conditions include asthma, CAD, diabetes, decreased hearing, hypertension, hyperlipidemia, osteomyelitis, hypothyroid, does use a walker. Ovarian cancer treated with chemotherapy in 2018 and surgical resection. Iron deficiency anemia, urinary incontinence, decreased vision in the left eye. Patient's had multiple abdominal surgeries. Patient for about 4 days has noticed increasing lower abdominal pain and a burning sensation. Quite significant. Also noted drainage of stool from a orifice in the abdominal wall. Fever and chills. Decreased appetite. Diet. [place] to be a colonic fistula with abdominal wall. With stool coming out. Otherwise normally has a bowel movement daily . Last BM - 4 days ago. March 09: Decreased abdominal pain with medications. IV cefepime. IV Flagyl. Clear liquids. No nausea vomiting. Repeat CT abdomen showing no enterocutaneous fistula. March 10: Pain better controlled. Bipolar fistula with some output. Awaiting further input from surgery. Continue IV antibiotics. Discussed with patient. 03/11/2022 Patient is currently lying in bed. Awake alert oriented x3. 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 Patient is supposed to be discharged yesterday but she cannot take care of herself at home. Patient awaiting to rehab placement. Patient has been afebrile. No nausea vomiting or abdominal pain or diarrhea. No cough or sputum production. No other acute overnight issues. Laboratory data reviewed. Objective - Vital Signs Vital signs: Vital Signs Temp 98.1 F 03/11/22 19:21 Pulse 89 03/11/22 20:50 Resp 24 03/11/22 20:50 BP 169/75 03/11/22 20:50 Pulse Ox 95 03/11/22 20:50 FiO2 Intake & Output 03/11/22 03/11/22 03/12/22 06:59 18:59 06:59 Intake Total 250 Output Total 700 Balance -700 250 Intake: Intake, IV Titration 250 Amount Cefepime 1 gm In Sodium 50 Chloride 0.9% 50 ml @ 12. 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 Social history: Lives alone. Has a cane and a walker. Smoked from 9060 08/20/1997. One or 2 packs a day. Alcohol occasionally. Family history: Patient adopted. Physical examination: VITAL SIGNS: 98.2, 76, 18, 130/71, 95% room air GENERAL: Laying in bed, not in distress EYES: Pupils equal. Conjunctiva normal. HEENT: External appearance of nose and ears normal, oral cavity grossly normal. Decreased hearing NECK: JVD not raised; masses not palpable. HEART: First and second heart sounds are normal; no edema. LUNGS: Respiratory rate normal; clear to auscultation. ABDOMEN: Soft, decreased lower abdominal tenderness, bag over fistula, liver spleen not palpable, no masses palpable. PSYCH: Alert and oriented x3; mood and affect normal. MUSCULOSKELETAL:No Clubbing/cyanosis;muscles-grossly intact. Evidence of OA INVESTIGATIONS, reviewed in the clinical context: Computed tomography scan abdomen and pelvis [March 09]: No fistula reported White count 10.1 hemoglobin 13.4 platelets 477. Sodium 135, potassium 3.8 creatinine 0.91 UA positive for leukoesterase, nitrite, WBC EKG tracing personally reviewed by me-rate 85. Right bundle-branch block. Computed tomography scan abdomen and pelvis: It is present within subcutaneous tissues midline pelvis. Extending to abdominal wall. Bowel loops appeared directly adjacent. Right AV stone, nonobstructive. - Labs CBC & Chem 7: 03/10/22 06:19 03/10/22 06:19 Labs: Abnormal Lab Results - Last 24 Hours (Table) 03/11/22 03/11/22 03/11/22 Range/Units 07:01 11:32 16:28 POC Glucose (mg/dL) 115 H 226 H 184 H (70-110) mg/dL 03/11/22 Range/Units 20:20 POC Glucose (mg/dL) 236 H (70-110) mg/dL Assessment and Plan Assessment: Assessment and plan: -Patient presented what appears to be a colon abdominal wall fistula putting out stool. Computed tomography scan does not show that with clinically appears to be the obvious. clear liquid diet. IV cefepime. IV Flagyl. Fecal bag over the fistula site. Follow with surgery. -Suspect underlying localized intra-abdominal abscess. Repeat computed tomography scan of abdomen without . Significant finding. -Diabetes mellitus type 2, chronically on insulin Levemir. Sliding scale. Hold oral hypoglycemic. -Essential hypertension Norvasc, metoprolol -Hypothyroid Synthroid 100 g a -Anxiety and depression Prozac and Cymbalta -Hyperlipidemia Lipitor. Continue IV cefepime and Flagyl. Oral medications to continue. Clear liquid diet. Follow with surgery. Time with Patient: Greater than 30
--- NOTE | 2022-03-13 03:21 | P.PN ---
Subjective Progress Note Date: 03/12/22 This is a pleasant 76-year-old patient, follows with Dr. Linda Sanders. Chronic stable medical conditions include asthma, CAD, diabetes, decreased hearing, hypertension, hyperlipidemia, osteomyelitis, hypothyroid, does use a walker. Ovarian cancer treated with chemotherapy in 2018 and surgical resection. Iron deficiency anemia, urinary incontinence, decreased vision in the left eye. Patient's had multiple abdominal surgeries. Patient for about 4 days has noticed increasing lower abdominal pain and a burning sensation. Quite significant. Also noted drainage of stool from a orifice in the abdominal wall. Fever and chills. Decreased appetite. Diet. [place] to be a colonic fistula with abdominal wall. With stool coming out. Otherwise normally has a bowel movement daily . Last BM - 4 days ago. March 09: Decreased abdominal pain with medications. IV cefepime. IV Flagyl. Clear liquids. No nausea vomiting. Repeat CT abdomen showing no enterocutaneous fistula. March 10: Pain better controlled. Bipolar fistula with some output. Awaiting further input from surgery. Continue IV antibiotics. Discussed with patient. 03/11/2022 Patient is currently lying in bed. Awake alert oriented x3. 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 Patient is supposed to be discharged yesterday but she cannot take care of herself at home. Patient awaiting to rehab placement. Patient has been afebrile. No nausea vomiting or abdominal pain or diarrhea. No cough or sputum production. No other acute overnight issues. 03/12/2022 Patient is currently lying in the bed. Awake alert [place] x3. Maintained on antibiotics in the form of cefepime and Flagyl. Patient is tolerating consistent carb diet. Patient to be evaluated by Tomorrow in the morning tomorrow for further recommendations. Pain is controlled. Urine culture showed Kluyvera ascorbate sensitive to ceftriaxone and cefepime. Patient has been afebrile. No cough or production. No chest pain or shortness of breath. Currently on room air. Current medications reviewed. Objective - Vital Signs Vital signs: Vital Signs Temp 98.4 F 03/12/22 18:08 Pulse 87 03/12/22 18:08 Resp 16 03/12/22 18:08 BP 145/70 03/12/22 18:08 Pulse Ox 96 03/12/22 18:08 FiO2 Intake & Output 03/12/22 03/12/22 03/13/22 06:59 18:59 06:59 Intake Total 250 Output Total 75 Balance -75 250 Intake: Intake, IV Titration 250 Amount Cefepime 1 gm In Sodium 50 Chloride 0.9% 50 ml @ 12. 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 Social history: Lives alone. Has a cane and a walker. Smoked from 9060 08/20/1997. One or 2 packs a day. Alcohol occasionally. Family history: Patient adopted. Physical examination: VITAL SIGNS: 98.2, 76, 18, 130/71, 95% room air GENERAL: Laying in bed, not in distress EYES: Pupils equal. Conjunctiva normal. HEENT: External appearance of nose and ears normal, oral cavity grossly normal. Decreased hearing NECK: JVD not raised; masses not palpable. HEART: First and second heart sounds are normal; no edema. LUNGS: Respiratory rate normal; clear to auscultation. ABDOMEN: Soft, decreased lower abdominal tenderness, bag over fistula, liver spleen not palpable, no masses palpable. PSYCH: Alert and oriented x3; mood and affect normal. MUSCULOSKELETAL:No Clubbing/cyanosis;muscles-grossly intact. Evidence of OA INVESTIGATIONS, reviewed in the clinical context: Computed tomography scan abdomen and pelvis [March 09]: No fistula reported White count 10.1 hemoglobin 13.4 platelets 477. Sodium 135, potassium 3.8 creatinine 0.91 UA positive for leukoesterase, nitrite, WBC EKG tracing personally reviewed by me-rate 85. Right bundle-branch block. Computed tomography scan abdomen and pelvis: It is present within subcutaneous tissues midline pelvis. Extending to abdominal wall. Bowel loops appeared directly adjacent. Right AV stone, nonobstructive. - Labs CBC & Chem 7: 03/10/22 06:19 03/10/22 06:19 Labs: Abnormal Lab Results - Last 24 Hours (Table) 03/12/22 03/12/22 03/12/22 Range/Units 07:14 11:37 16:43 POC Glucose (mg/dL) 131 H 181 H 236 H (70-110) mg/dL 03/12/22 Range/Units 20:25 POC Glucose (mg/dL) 203 H (70-110) mg/dL Assessment and Plan Assessment: Assessment and plan: -Patient presented what appears to be a colon abdominal wall fistula putting out stool. Computed tomography scan does not show that with clinically appears to be the obvious. clear liquid diet. IV cefepime. IV Flagyl. Fecal bag over the fistula site. Follow with surgery. -Suspect underlying localized intra-abdominal abscess. Repeat computed tomography scan of abdomen without . Significant finding. -Kluyvera ascorbate UTI -Diabetes mellitus type 2, chronically on insulin Levemir. Sliding scale. Hold oral hypoglycemic. -Essential hypertension Norvasc, metoprolol -Hypothyroid Synthroid 100 g a -Anxiety and depression Prozac and Cymbalta -Hyperlipidemia Lipitor. Continue IV cefepime and Flagyl. Oral medications to continue. Clear liquid diet. Follow with surgery and GI evaluation Time with Patient: Greater than 30
[2022-03-13] MEDS: LEVOTHYROXINE 100 MCG TAB PO SCH (06:04)
[2022-03-13 07:28] LABS: Glucose,Whole Blood 164 mg/dL (70-110)
[2022-03-13 07:44] VITALS: BP 163/68; PULSE 81; RESP 17; TEMP 97.7
[2022-03-13] MEDS: FAMOTIDINE 20 MG TAB PO SCH (09:14)
[2022-03-13] MEDS: amLODIPine 5 MG TAB PO SCH (09:14)
[2022-03-13] MEDS: FLUoxetine HCL 10 MG CAP PO SCH (09:14)
[2022-03-13] MEDS: DULoxetine HCL 60 MG CAPSULE.DR PO SCH (09:14)
[2022-03-13] MEDS: HEPARIN SODIUM,PORCINE/PF 5,000 UNIT/0.5 ML SYRINGE SQ SCH (09:14)
[2022-03-13] MEDS: INSULIN ASPART (NovoLOG) 100 UNIT/ML VIAL SQ SCH ×2 (09:14→12:56)
[2022-03-13] MEDS: ASPIRIN 81 MG PO SCH (09:14)
[2022-03-13 10:44] LABS: African American GFR (CKD) 62.9 (60.0-200.0); Anion Gap 10.3 mmol/L (10.00-18.00); BUN/Creat Ratio 10.9 Ratio (12.00-20.00); Blood Urea Nitrogen 10.9 mg/dL (9.0-27.0); Calcium 8.9 mg/dL (8.7-10.3); Carbon Dioxide 26.7 mmol/L (20.0-27.5); Non-African American GFR(CKD) 54.3 (60.0-200.0); Potassium 4.5 mmol/L (3.5-5.5)
[2022-03-13] MEDS: CEFEPIME 1 GM in SODIUM CHLORIDE 0.9% 50 ML IVPB SCH (11:06)
[2022-03-13 11:33] LABS: Glucose,Whole Blood 178 mg/dL (70-110)
[2022-03-13 12:11] LABS: Basophils # (A) 0.06 X 10*3/uL (0.00-0.10); Basophils % (A) 0.7 %; Eosinophils # (A) 0.37 X 10*3/uL (0.04-0.35); Eosinophils % (A) 4.2 %; HCT 39.5 % (37.2-46.3); HGB 12.6 g/dL (12.0-15.0); Immature Grans, Automated 2.1 %; Lymphocytes # (A) 1.16 X 10*3/uL (0.90-5.00); Lymphocytes % (A) 13.3 %; MCH 28.3 pg (27.0-32.0); MCHC 31.9 g/dL (32.0-37.0); MCV 88.8 fL (80.0-97.0); Mean Platelet Volume 9.8 fL (9.5-12.2); Monocytes # (A) 1.04 X 10*3/uL (0.20-1.00); Monocytes % (A) 11.9 %; NRBC Per 100 WBC 0 /100 WBCS (0.0-0.0); Neutrophils # (A) 5.91 X 10*3/uL (1.80-7.70); Neutrophils % (A) 67.8 %; Platelet Count 457 X 10*3/uL (140-440); RBC 4.45 X 10*6/uL (4.10-5.20); WBC 8.72 X 10*3/uL (4.50-10.00)
--- NOTE | 2022-03-13 12:53 | P.CONS ---
History of Present Illness - Reason for Consult Consult date: 03/13/22 Known to patient Requesting physician: Lucy Canada - Chief Complaint Abdominal wound - History of Present Illness This is a 76-year-old female who presented to the emergency department on 03/07/2022 with concerns of abdominal wall wound with drainage. Patient states that she noticed drainage from her abdomen 1-2 days prior to coming into the emergency room. She has a past medical history including asthma, coronary artery disease of varying cancer status post surgery and chemo, diabetes mellitus, hyperlipidemia, hypertension and thyroid disorder. Patient follows with Dr. Gage in the outpatient setting for colonoscopies. Patient had a CT of the abdomen and pelvis without contrast on admission that had reported are present within the subcutaneous tissues the midline pelvis. Extends to the anterior abdominal wall. Bowel loops appear directly adjacent extending towards the abdomen and wall. Fistula formation should be considered at this level. Nonobstructing punctuate inferior pole right renal stone stable heterogeneous right adrenal gland. Gen. surgery admitted the patient and had concern for enterocutaneous fistula. They ordered a repeat CT of the abdomen and pelvis without contrast. Which reported no enterocutaneous fistula, as there is no leakage of enteric contrast into the subcutaneous fat in the pelvis, at the level of the large skin defect. Stable exam. Repeat CT abdomen and pelvis with oral contrast reported complex fluid in the subcutaneous anterior lower abdomen that could be a fistula and not changed compared to computed tomography scan yesterday. Also reported some wall thickening of the sigmoid colon. Sigmoid diverticula. Tumor mass not excluded. This could be hypertrophic inflammatory changes related to diverticular disease. No significant Stranding seen to suggest diverticulitis. At this time general surgery Recommended proceeding with small bowel resection. Patient states that she was uncomfortable with that decision and wanted to speak with Dr. Gage further regarding her fistula and recommendations for surgical versus nonsurgical intervention. Patient has been afebrile. No Leukocytosis. She is currently denying any abdominal pain, nausea or vomiting. States she is having regular bowel movements. She's has an ostomy bag over lower abdominal wall wound opening with a light brown milky drainage. Review of Systems REVIEW OF SYSTEMS: CARDIOPULMONARY: No chest pain or shortness of breath. Gastrointestinal: Burning no abdominal pain. No nausea or vomiting. No h ematemesis, coffee-ground emesis. No rectal bleeding, or melena. GENITOURINARY: No dysuria or hematuria. MUSCULOSKELETAL: Reports normal range of motion., Joint pain. SKIN: No rashes. No jaundice. Open abdominal wound lower abdomen/pelvis region with milky drainage. ENDOCRINE: No chills, fevers. No excessive weight gain or loss. No polydipsia or polyuria. PSYCHIATRIC: Unremarkable. NEUROLOGY: No change in mental status. Denies dizziness, headache. ENT: Vision unremarkable. CONSTITUTIONAL: No recent weight loss. No fever, chills, night sweats. Past Medical History Past Medical History: Asthma, Coronary Artery Disease (CAD), Cancer, Diabetes Mellitus, Hearing Disorder / Deafness, Hyperlipidemia, Hypertension, Osteoarthritis (OA), Thyroid Disorder Additional Past Medical History / Comment(s): R sided ovarian cancer- tx with chemo finished October 2017, heart murmur, sleeps sitting up, constipation, hx anemia- recieved iron infusion, urinary incontinence, past frequent UTI's, lost vision in lt eye but has peripheral vision-stated "from a calcium clot" History of Any Multi-Drug Resistant Organisms: ESBL Year Discovered:: 05/26/19 MDRO Source:: URINE Past Surgical History: Appendectomy, Cholecystectomy, Hysterectomy, Joint Replacement, Tonsillectomy Additional Past Surgical History / Comment(s): 06/2017 Exploratory laparotomy with ovarian tumor removal and lysis of adhesions, bilateral knee replacement, bilateral cataract removals, past(D&C. ), calcium clot lt eye, non functioning neurostimlator removed. glaucoma surgery, COLONOSCOPY Past Anesthesia/Blood Transfusion Reactions: No Reported Reaction Additional Past Anesthesia/Blood Transfusion Reaction / Comm: Unsure of family history, patient was adopted. Past Psychological History: Bipolar Smoking Status: Former smoker - Past Family History Father History Unknown: Yes Family Medical History: Unable to Obtain Additional Family Medical History / Comment(s): Pt is adopted and does not know parents medical history. Medications and Allergies Home Medications Medication Instructions Recorded Confirmed Type Baclofen 10 mg PO QID PRN 01/06/16 03/07/22 History DULoxetine HCL [Cymbalta] 60 mg PO DAILY 01/06/16 03/07/22 History oxyCODONE HCL [oxyCODONE HCL (IR)] 10 mg PO QID PRN 01/06/16 03/07/22 History Insulin NPH Hum/Reg Insulin Hm 12 - 16 unit SQ AC-BRKFST 03/17/16 03/07/22 History [NovoLIN 70-30 100 UNIT/ML VIAL] Insulin NPH Hum/Reg Insulin Hm 16 - 22 unit SQ AC-SUPPER 03/17/16 03/07/22 History [NovoLIN 70-30 100 UNIT/ML VIAL] Levothyroxine Sodium [Synthroid] 100 mcg PO DAILY 07/25/17 03/07/22 History FLUoxetine HCL [PROzac] 10 mg PO DAILY 05/22/18 03/07/22 History Aspirin EC [Ecotrin Low Dose] 81 mg PO DAILY 12/31/18 03/07/22 History Atorvastatin Calcium [Lipitor] 40 mg PO HS 12/31/18 03/07/22 History Furosemide [Lasix] 20 mg PO DAILY 08/09/19 03/07/22 History Ubidecarenone [Co Q-10] 100 mg PO DAILY 08/11/19 03/07/22 History Acetaminophen Tab [Tylenol] 500 mg PO Q6H PRN 03/07/22 03/07/22 History Cholecalciferol [Vitamin D3 (25 50 mcg PO DAILY 03/07/22 03/07/22 History Mcg = 1000 Iu)] Cranberry Fruit Extract [Cranberry] 500 mg PO DAILY 03/07/22 03/07/22 History L.acidoph,Paracasei, B.lactis 1 cap PO DAILY 03/07/22 03/07/22 History [Probiotic] Semaglutide [Ozempic] 1 mg SQ Q7D 03/07/22 History amLODIPine [Norvasc] 5 mg PO DAILY 03/07/22 03/07/22 History Metoprolol Tartrate 12.5 mg PO BID #0 03/10/22 03/07/22 Rx cefUROXime axetiL [Ceftin] 500 mg PO BID #20 tab 03/10/22 Rx metroNIDAZOLE [Flagyl] 500 mg PO QID #40 tab 03/10/22 Rx Allergies Allergy/AdvReac Type Severity Reaction Status Date / Time adhesive Allergy blisters Verified 03/07/22 22:14 amoxicillin Allergy Rash/Hives Verified 03/07/22 22:14 ciprofloxacin [From Cipro] AdvReac Dyspnea Verified 03/07/22 22:14 ciprofloxacin HCl AdvReac Dyspnea Verified 03/07/22 22:14 [From Cipro] Physical Exam Vitals: Vital Signs Temp Pulse Pulse Resp BP Pulse Ox 03/13/22 07:43 97.7 F 81 17 163/68 97 03/13/22 01:39 97.4 F L 80 18 143/61 94 L 03/12/22 20:00 103 H 87 16 03/12/22 18:08 98.4 F 87 16 145/70 96 03/12/22 14:00 98.4 F 94 17 142/61 94 L Intake and Output 03/12/22 03/13/22 03/13/22 22:59 06:59 14:59 Intake Total 250 Output Total 850 Balance -600 Intake: Intake, IV Titration 250 Amount Cefepime 1 gm In Sodium 50 Chloride 0.9% 50 ml @ 12. 5 mls/hr IVPB Q12HR [facility] Rx#:[id number] metroNIDAZOLE-NS PMX 500 200 mg In Saline 1 100ml.bag @ 100 mls/hr IVPB Q6HR [facility] Rx#:[id number] Output: Urine 700 Stool 150 Other: Voiding Method Diaper # Voids 6 5 General appearance: The patient is alert, oriented, appears in no acute distress. HET: Head is normocephalic and atraumatic. Conjunctiva pink. Sclera anicteric. Neck: Supple without lymphadenopathy. Trachea midline. Heart: S1 S2. Regular rate and rhythm. Lungs: Clear to auscultation. Abdomen: Soft, nontender, nondistended with bowel sounds. No guarding or rigid ity. Skin: No rashes. No jaundice. Lower abdomen/pelvic region with open wound, ostomy bag in place with light brown milky drainage. Extremities: Normal skin color and turgor. No pedal edema. Neurological: No focal deficits. Alert and oriented x3. Results CBC & Chem 7: 03/13/22 06:44 03/13/22 06:44 Labs: Abnormal Lab Results - Last 24 Hours (Table) 03/12/22 03/12/22 03/12/22 Range/Units 11:37 16:43 20:25 POC Glucose (mg/dL) 181 H 236 H 203 H (70-110) mg/dL 03/13/22 Range/Units 07:27 POC Glucose (mg/dL) 164 H (70-110) mg/dL Assessment and Plan (1) Enterocutaneous fistula Narrative/Plan: 76-year-old female who presented to the emergency department with concerns for abdominal wall wound with drainage. Gen. surgery amended patient for enterocutaneous fistula. Plan was to proceed with small bowel resection this afternoon however patient is declining at this time and would like further opinion. Patient is well established with Dr. Gage and wanted to discuss further with her. It was explained to the patient that Dr. Gage does not to surgical intervention, patient states she understands. Patient's last EGD and colonoscopy done in August 2020. EGD showed mild antral gastritis and colonoscopy showed descending colon diverticulosis, scope could not be advanced beyond the descending colon because of acute angulation. She had a barium enema scheduled on 08/06/2020 but was unable to complete as she was having difficulty laying on her stomach. At this time, general surgery has canceled any surgical intervention and will follow up as an outpatient. Current Visit: Yes Status: Acute Code(s): K63.2 - FISTULA OF INTESTINE S NOMED Code(s): 222496724 Plan: 1. Continue symptomatic and supportive care 2. Recommend general surgery order outpatient fistulogram or small bowel series for further evaluation of fistula before any surgical intervention 3. Recommend outpatient follow-up with general surgery 4. Patient is cleared from gastroenterology for discharge Thank you for this consultation. Dr. Artem Gage I agree with the dictator's note, documented as a scribe by Kusum Aguilar.
--- NOTE | 2022-03-13 12:59 | P.DS ---
Providers Date of admission: 03/07/22 15:00 Expected date of discharge: 03/13/22 Attending physician: Parviz Naidu Consults: 03/08/22 03:51 Consult Physician Routine Consulting Provider: Milind Martel Consult Reason/Comments: medical management Do you want consulting provider notified?: Yes, Notify in am Placement Type Exists?: Yes 03/13/22 07:56 Consult Physician Routine Consulting Provider: Kenia Gage Consult Reason/Comments: known Do you want consulting provider notified?: Yes Primary care physician: Linda Sanders Hospital Course: Discharge diagnosis 1. Enterocutaneous fistula Hospital course This is a 76-year-old female with a known history of right ovarian cancer status post removal of ovarian tumor and chemotherapy in 2018 at [facility]. Patient also has surgical history of hysterectomy, appendectomy and cholecystectomy. Patient reports Sunday she was getting up from the bathroom and noted drainage coming from the bottom of her abdomen. She reported that the drainage was foul smelling and brown in color. Patient admitted the hospital for concerns of abdominal fistula. She had a computed tomography scan of abdomen and pelvis with IV contrast that showed areas present within the subcutaneous tissue midline pelvis. This extends to the anterior abdominal wall. Bowel loops appear directly adjacent extending towards the abdominal wall. Fistula formation should be considered at this level. Patient had another repeat CAT scan with a six-hour contrast prep the did show complex fluid in the subcutaneous anterior lower abdomen that could be a fistula. There is also some wall thickening of the sigmoid colon. Tumor mass not excluded. These findings were discussed with Dr. naidu. Patient is still continuing to have drainage from the fistula. The drainage is lipscomb in color. Her white count remains normal. She's afebrile. Her pain is controlled. She is stable for discharge. Patient's discharge was held on Sunday. Patient did not feel comfortable for discharge. Initially she was going to have a small bowel resection today regarding the enterocutaneous fistula. However, patient did eat breakfast this morning. And she does not feel ready for discharge. She wants to speak with the GI specialist before discharge. This fistula is chronic for patient and no emergent surgery is required. Patient can be discharged home with outpatient follow-up per Dr. naidu. Please refer to chart for any further details. Physician Tester [employer] note has been reviewed by physician. Signing provider agrees with the documented findings, assessment, and plan of care. Patient Condition at Discharge: Stable Plan - Discharge Summary Discharge Rx Participant: Yes New Discharge Prescriptions: New cefUROXime axetiL [Ceftin] 500 mg PO BID #20 tab metroNIDAZOLE [Flagyl] 500 mg PO QID #40 tab Continue oxyCODONE HCL [oxyCODONE HCL (IR)] 10 mg PO QID PRN PRN Reason: Pain DULoxetine HCL [Cymbalta] 60 mg PO DAILY Baclofen 10 mg PO QID PRN PRN Reason: Muscle Spasm Insulin NPH Hum/Reg Insulin Hm [NovoLIN 70-30 100 UNIT/ML VIAL] 12 - 16 unit SQ AC-BRKFST Insulin NPH Hum/Reg Insulin Hm [NovoLIN 70-30 100 UNIT/ML VIAL] 16 - 22 unit SQ AC-SUPPER Levothyroxine Sodium [Synthroid] 100 mcg PO DAILY FLUoxetine HCL [PROzac] 10 mg PO DAILY Aspirin EC [Ecotrin Low Dose] 81 mg PO DAILY Atorvastatin Calcium [Lipitor] 40 mg PO HS Furosemide [Lasix] 20 mg PO DAILY Ubidecarenone [Co Q-10] 100 mg PO DAILY Acetaminophen Tab [Tylenol] 500 mg PO Q6H PRN PRN Reason: Pain Or Fever > 100.5 amLODIPine [Norvasc] 5 mg PO DAILY Cranberry Fruit Extract [Cranberry] 500 mg PO DAILY L.acidoph,Paracasei, B.lactis [Probiotic] 1 cap PO DAILY Semaglutide [Ozempic] 1 mg SQ Q7D Cholecalciferol [Vitamin D3 (25 Mcg = 1000 Iu)] 50 mcg PO DAILY Changed Metoprolol Tartrate 12.5 mg PO BID #0 Discontinued metFORMIN HCL ER [Glucophage XR] 1,000 mg PO BID Docusate Sodium [Dok] 100 mg PO BID PRN PRN Reason: Constipation Pioglitazone HCl 15 mg PO DAILY Discharge Medication List Baclofen 10 mg PO QID PRN 01/06/16 [History] DULoxetine HCL [Cymbalta] 60 mg PO DAILY 01/06/16 [History] oxyCODONE HCL [oxyCODONE HCL (IR)] 10 mg PO QID PRN 01/06/16 [History] Insulin NPH Hum/Reg Insulin Hm [NovoLIN 70-30 100 UNIT/ML VIAL] 12 - 16 unit SQ AC-BRKFST 03/17/16 [History] Insulin NPH Hum/Reg Insulin Hm [NovoLIN 70-30 100 UNIT/ML VIAL] 16 - 22 unit SQ AC-SUPPER 03/17/16 [History] Levothyroxine Sodium [Synthroid] 100 mcg PO DAILY 07/25/17 [History] FLUoxetine HCL [PROzac] 10 mg PO DAILY 05/22/18 [History] Aspirin EC [Ecotrin Low Dose] 81 mg PO DAILY 12/31/18 [History] Atorvastatin Calcium [Lipitor] 40 mg PO HS 12/31/18 [History] Furosemide [Lasix] 20 mg PO DAILY 08/09/19 [History] Ubidecarenone [Co Q-10] 100 mg PO DAILY 08/11/19 [History] Acetaminophen Tab [Tylenol] 500 mg PO Q6H PRN 03/07/22 [History] Cholecalciferol [Vitamin D3 (25 Mcg = 1000 Iu)] 50 mcg PO DAILY 03/07/22 [History] Cranberry Fruit Extract [Cranberry] 500 mg PO DAILY 03/07/22 [History] L.acidoph,Paracasei, B.lactis [Probiotic] 1 cap PO DAILY 03/07/22 [History] Semaglutide [Ozempic] 1 mg SQ Q7D 03/07/22 [History] amLODIPine [Norvasc] 5 mg PO DAILY 03/07/22 [History] Metoprolol Tartrate 12.5 mg PO BID #0 03/10/22 [Rx] cefUROXime axetiL [Ceftin] 500 mg PO BID #20 tab 03/10/22 [Rx] metroNIDAZOLE [Flagyl] 500 mg PO QID #40 tab 03/10/22 [Rx] Follow up Appointment(s)/Referral(s): Linda Sanders MD [Primary Care Provider] - 1-2 days [facility] Visiting Nurse, [NON-STAFF] - As Needed Parviz Naidu MD [STAFF PHYSICIAN] - 03/14/22 Activity/Diet/Wound Care/Special Instructions: Metoprolol tartrate is not a new medications. Only dose changed. Discharge Disposition: HOME SELF-CARE
--- NOTE | 2022-03-13 17:11 | P.PN ---
Progress Note - Text Progress Note Date: 03/13/22 - Chief Complaint Stool from abdominal wall Hospital course: This is a pleasant 76-year-old patient, follows with Dr. Linda Sanders. Chronic stable medical conditions include asthma, CAD, diabetes, decreased hearing, hypertension, hyperlipidemia, osteomyelitis, hypothyroid, does use a walker. Ovarian cancer treated with chemotherapy in 2018 and surgical resection. Iron deficiency anemia, urinary incontinence, decreased vision in the left eye. Patient's had multiple abdominal surgeries. Patient for about 4 days has noticed increasing lower abdominal pain and a burning sensation. Quite significant. Also noted drainage of stool from a orifice in the abdominal wall. Fever and chills. Decreased appetite. Diet. [place] to be a colonic fistula with abdominal wall. With stool coming out. Otherwise normally has a bowel movement daily . Last BM - 4 days ago. March 09: Decreased abdominal pain with medications. IV cefepime. IV Flagyl. Clear liquids. No nausea vomiting. Repeat CT abdomen showing no enterocutaneous fistula. March 10: Pain better controlled. Bipolar fistula with some output. Awaiting further input from surgery. Continue IV antibiotics. Discussed with patient. March 13: Tolerating regular diet. Fistula is putting out stool. Patient has several questions about the surgery in general terms. Spoke with length about the same to the patient including the pros and cons. She was to see Dr. Artem Gage this afternoon. Patient not willing to have surgery done. Come back outpatient to have the same. 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 Social history: Lives alone. Has a cane and a walker. Smoked from 9060 08/20/1997. One or 2 packs a day. Alcohol occasionally. Family history: Patient adopted. Physical examination: VITAL SIGNS: 37.7, 81, 17, 143/61, 94% room air GENERAL: Up in a chair, comfortable EYES: Pupils equal. Conjunctiva normal. HEENT: External appearance of nose and ears normal, oral cavity grossly normal. Decreased hearing NECK: JVD not raised; masses not palpable. HEART: First and second heart sounds are normal; no edema. LUNGS: Respiratory rate normal; clear to auscultation. ABDOMEN: Soft, no tenderness, bag over fistula, liver spleen not palpable, no masses palpable. PSYCH: Alert and oriented x3; mood and affect normal. MUSCULOSKELETAL:No Clubbing/cyanosis;muscles-grossly intact. Evidence of OA INVESTIGATIONS, reviewed in the clinical context: March 13: White count 8.70 globin 12.6 potassium 4.5 creatinine 1.0 Computed tomography scan abdomen and pelvis [March 09]: No fistula reported White count 10.1 hemoglobin 13.4 platelets 477. Sodium 135, potassium 3.8 creatinine 0.91 UA positive for leukoesterase, nitrite, WBC EKG tracing personally reviewed by me-rate 85. Right bundle-branch block. Computed tomography scan abdomen and pelvis: It is present within subcutaneous tissues midline pelvis. Extending to abdominal wall. Bowel loops appeared directly adjacent. Right AV stone, nonobstructive. Assessment and plan: -Patient presented what appears to be a colon abdominal wall fistula putting out stool. Regular diet. IV cefepime. IV Flagyl. Fecal bag over the fistula site. Follow with surgery. DC on Ceftin and Flagyl. Outpatient surgery. -Diabetes mellitus type 2, chronically on insulin Resume all home dose -Essential hypertension Norvasc, metoprolol -Hypothyroid Synthroid 100 g a -Anxiety and depression Prozac and Cymbalta -Hyperlipidemia Lipitor. -DO NOT RESUSCITATE Care was discussed at length with the patient. In general terms about the surgery. Several questions were answered. Patient is pending to go home today. Outpatient surgery. Medically stable to proceed for surgery. I spent today about 40 minutes with over 25 minutes of discussion.
[2022-03-14] MEDS ORDERED: FAMOTIDINE 20 MG TAB PO SCH (09:00)
== END 2022-03-13 15:33 | disposition home or self-care (01) | DRG 394 ==
LOC: EC 10:04 → 4SSUR 15:00
PROVIDERS: ADMIT Surgery; ATTEND Surgery
DX: K63.2 Fistula of intestine (principal); M86.9 Osteomyelitis, unspecified; N39.0 Urinary tract infection, site not specified; E11.69 Type 2 diabetes mellitus with other specified complication; J44.9 Chronic obstructive pulmonary disease, unspecified; I10 Essential (primary) hypertension; I45.10 Unspecified right bundle-branch block; E78.5 Hyperlipidemia, unspecified; F41.9 Anxiety disorder, unspecified; I25.10 Atherosclerotic heart disease of native coronary artery without angina pectoris; B96.89 Other specified bacterial agents as the cause of diseases classified elsewhere; E03.9 Hypothyroidism, unspecified; N20.0 Calculus of kidney; F31.9 Bipolar disorder, unspecified; K57.30 Diverticulosis of large intestine without perforation or abscess without bleeding; D50.9 Iron deficiency anemia, unspecified; H54.62 Unqualified visual loss, left eye, normal vision right eye; J45.909 Unspecified asthma, uncomplicated; M19.90 Unspecified osteoarthritis, unspecified site; H91.90 Unspecified hearing loss, unspecified ear; R32 Unspecified urinary incontinence; R01.1 Cardiac murmur, unspecified; Z96.653 Presence of artificial knee joint, bilateral; Z75.1 Person awaiting admission to adequate facility elsewhere; Z90.49 Acquired absence of other specified parts of digestive tract; Z85.43 Personal history of malignant neoplasm of ovary; Z79.4 Long term (current) use of insulin; Z79.82 Long term (current) use of aspirin; Z79.84 Long term (current) use of oral hypoglycemic drugs; Z79.890 Hormone replacement therapy; Z79.899 Other long term (current) drug therapy; Z92.21 Personal history of antineoplastic chemotherapy; Z87.440 Personal history of urinary (tract) infections; Z87.891 Personal history of nicotine dependence; Z93.3 Colostomy status; Z98.42 Cataract extraction status, left eye; Z98.41 Cataract extraction status, right eye; Z88.1 Allergy status to other antibiotic agents; Z91.048 Other nonmedicinal substance allergy status; Z90.710 Acquired absence of both cervix and uterus
CPT/HCPCS: 36415; 71045; 74176; 74177; 80048; 80053; 81001; 83605; 85025; 85610; 85730; 86140; 87077; 87086; 87186; 93005; 96374; 96375; 99285

== ENCOUNTER 2022-03-20 10:10 | Inpatient (IN) | payer MEDICARE ==
[~2022-03-20 10:10] MED LIST changes: +ACETAMINOPHEN TAB 500 MG TAB PO PRN; +DEXAMETHASONE SOD PHOSPHATE 4 MG/ML 1 ML VIAL IV ONE; +HEPARIN SODIUM,PORCINE/PF 5,000 UNIT/0.5 ML SYRINGE SQ PRN; +HYDROmorphone 0.5 MG/0.5 ML SYRINGE IVP PRN; -LACTATED RINGERS 1,000 ML IV SCH; -LIDOCAINE 1% (10MG/ML) FOR IV START INTRADERMA ONE; +LIDOCAINE 1% (10MG/ML) FOR IV START INTRADERMA PRN; -LIDOCAINE 1% INJ 10MG/ML (20 ML MDV) ONE; +MIDAZOLAM 2 MG/2 ML VIAL IV PRN; +ONDANSETRON 4 MG/2 ML VIAL IVP ONE; -PROPOFOL 10 MG/ML 20 ML VIAL IV ONE; +metroNIDAZOLE-NS PMX 500 MG in SALINE 1 100ML.BAG IVPB PRN
--- NOTE | 2022-03-20 10:40 | P.GSHP ---
History of Present Illness H&P Date: 03/20/22 Chief Complaint: Enterocutaneous fistula This is a 76-year-old female who presents today for small bowel resection. Patient has. History of spontaneous enterocutaneous fistula. 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 Patient developed a spontaneously draining into place fistula prostate 2 weeks ago. Past Medical History Past Medical History: Asthma, Coronary Artery Disease (CAD), Cancer, Diabetes Mellitus, Hearing Disorder / Deafness, Hyperlipidemia, Hypertension, Osteoarthritis (OA), Thyroid Disorder Additional Past Medical History / Comment(s): R sided ovarian cancer- tx with chemo finished October 2017, heart murmur, sleeps sitting up, constipation, hx anemia- recieved iron infusion, urinary incontinence, past frequent UTI's, lost vision in lt eye but has peripheral vision-stated "from a calcium clot" History of Any Multi-Drug Resistant Organisms: ESBL Date of last positivie culture/infection: 05/26/19 MDRO Source:: URINE Past Surgical History: Appendectomy, Cholecystectomy, Hysterectomy, Joint Replacement, Tonsillectomy Additional Past Surgical History / Comment(s): 06/2017 Exploratory laparotomy with ovarian tumor removal and lysis of adhesions, bilateral knee replacement, bilateral cataract removals, past(D&C. ), calcium clot lt eye, non functioning neurostimlator removed. glaucoma surgery, COLONOSCOPY Past Anesthesia/Blood Transfusion Reactions: No Reported Reaction Additional Past Anesthesia/Blood Transfusion Reaction / Comment(s): Unsure of family history, patient was adopted. Past Psychological History: Bipolar Smoking Status: Former smoker Past Alcohol Use History: Occasional Past Drug Use History: None Reported - Past Family History Father History Unknown: Yes Family Medical History: Unable to Obtain Additional Family Medical History / Comment(s): Pt is adopted and does not know parents medical history. Medications and Allergies Home Medications Medication Instructions Recorded Confirmed Type Baclofen 10 mg PO QID PRN 01/06/16 03/16/22 History DULoxetine HCL [Cymbalta] 60 mg PO DAILY 01/06/16 03/16/22 History oxyCODONE HCL [oxyCODONE HCL (IR)] 10 mg PO QID PRN 01/06/16 03/16/22 History Insulin NPH Hum/Reg Insulin Hm 12 - 16 unit SQ AC-BRKFST 03/17/16 03/16/22 History [NovoLIN 70-30 100 UNIT/ML VIAL] Insulin NPH Hum/Reg Insulin Hm 16 - 22 unit SQ AC-SUPPER 03/17/16 03/16/22 History [NovoLIN 70-30 100 UNIT/ML VIAL] Levothyroxine Sodium [Synthroid] 100 mcg PO DAILY 07/25/17 03/16/22 History FLUoxetine HCL [PROzac] 10 mg PO DAILY 05/22/18 03/16/22 History Aspirin EC [Ecotrin Low Dose] 81 mg PO DAILY 12/31/18 03/16/22 History Atorvastatin Calcium [Lipitor] 40 mg PO HS 12/31/18 03/16/22 History Furosemide [Lasix] 20 mg PO DAILY 08/09/19 03/16/22 History Ubidecarenone [Co Q-10] 100 mg PO DAILY 08/11/19 03/16/22 History Cholecalciferol [Vitamin D3 (25 50 mcg PO DAILY 03/07/22 03/16/22 History Mcg = 1000 Iu)] Cranberry Fruit Extract [Cranberry] 500 mg PO DAILY 03/07/22 03/16/22 History L.acidoph,Paracasei, B.lactis 1 cap PO DAILY 03/07/22 03/16/22 History [Probiotic] amLODIPine [Norvasc] 5 mg PO DAILY 03/07/22 03/16/22 History Metoprolol Tartrate 12.5 mg PO BID #0 03/10/22 03/16/22 Rx cefUROXime axetiL [Ceftin] 500 mg PO BID #20 tab 03/10/22 03/16/22 Rx metroNIDAZOLE [Flagyl] 500 mg PO QID #40 tab 03/10/22 03/16/22 Rx Allergies Allergy/AdvReac Type Severity Reaction Status Date / Time adhesive Allergy blisters Verified 03/16/22 12:26 amoxicillin Allergy Rash/Hives Verified 03/16/22 12:26 ciprofloxacin [From Cipro] AdvReac Dyspnea Verified 03/16/22 12:26 ciprofloxacin HCl AdvReac Dyspnea Verified 03/16/22 12:26 [From Cipro] Surgical - Exam - General well developed, well nourished, no distress - Eyes PERRL - ENT normal pinna - Neck no masses - Respiratory normal expansion - Cardiovascular Rhythm: regular - Abdomen Multiple laparotomy scars Abdomen: soft, non tender Assessment and Plan Assessment: Case this appeared patient will be taken for exposure laparotomy and small bowel resection. Patient is aware the risk of possible ileostomy or colostomy.
[2022-03-20 10:52] LABS: Glucose,Whole Blood 209 mg/dL (70-110)
[2022-03-20] MEDS: LACTATED RINGERS 1,000 ML IV SCH ×2 (11:02→22:03)
[2022-03-20] MEDS ORDERED: ONDANSETRON 4 MG/2 ML VIAL IVP ONE (11:03)
[2022-03-20] MEDS ORDERED: INSULIN ASPART (NovoLOG) 100 UNIT/ML VIAL SQ ONE (11:14)
[2022-03-20] MEDS ORDERED: MIDAZOLAM 2 MG/2 ML VIAL IVP ONE ×2 (11:24→11:29)
[2022-03-20] MEDS ORDERED: NALOXONE 0.4 MG/ML 1 ML VIAL IV PRN ×2 (11:58→14:14)
--- NOTE | 2022-03-20 12:02 | P.ANPRN ---
Procedure Note - Anesthesia - Epidural/Spinal Epidural Continuous Time Out Performed: Yes Date of Procedure: 03/20/22 Procedure Start Time: 11:23 Procedure Stop Time: 11:35 Location of Patient: PreOp Indication: Requested by Surgeon Sedation Type: Sedate with meaningful contact maintained Preparation: Sterile Dressing Position: Sitting Catheter: Indwelling Needle Guage: 18 Injectate: Test Dose Lidocaine1.5% w/1:200,000 epi Blood Aspirated: No Pain Paresthesia on Injection Noted: No Events: Uneventful and Well Tolerated
[2022-03-20] MEDS ORDERED: MIDAZOLAM 2 MG/2 ML VIAL ONE (12:34)
[2022-03-20] MEDS ORDERED: fentaNYL (PF) 50 MCG/ML 2 ML AMP ONE (12:34)
[2022-03-20] MEDS ORDERED: HYDROmorphone (PF) 1 MG/ML ONE (12:34)
[2022-03-20] MEDS ORDERED: ROCURONIUM 10 MG/ML (5 ML VIAL) IV ONE (12:34)
[2022-03-20] MEDS ORDERED: PROPOFOL 10 MG/ML 20 ML VIAL IV ONE (12:34)
[2022-03-20] MEDS ORDERED: NEOSTIGMINE 1 MG/ML 10 ML VIAL ONE (12:34)
[2022-03-20] MEDS ORDERED: GLYCOPYRROLATE 0.2 MG/ML 2 ML VIAL ONE (12:34)
[2022-03-20] MEDS ORDERED: SUCCINYLCHOLINE CHLORIDE 200 MG/10 ML VIAL IV ONE (12:34)
[2022-03-20] MEDS ORDERED: LIDOCAINE 2% INJ 20 MG/ML (2 ML VIAL) ONE (12:34)
--- NOTE | 2022-03-20 14:13 | P.OP ---
Date of Procedure: 03/20/22 Preoperative Diagnosis: Enterocutaneous fistula Postoperative Diagnosis: Enterocutaneous fistula Diverticulitis Procedure(s) Performed: Exploratory laparotomy Small bowel resection Diverting colostomy Anesthesia: MARYCARMEN Surgeon: Parviz Harrison Estimated Blood Loss (ml): 50 Pathology: other (Small bowel, colon) Condition: stable Disposition: PACU Description of Procedure: The patient's placed on the operating table in the supine position.. She received general anesthesia. Her abdomen was prepped and draped usual fashion. Patient had a enterocutaneous fistula can't the lower portion of her midline scar. The skin was incised midline. There cautery was used to divide the abdominal wall. There were adhesions noted in the wound cavity. These were lysed with sharp dissection upon entering the area of the fistula there was small bowel matted up against this area. The small bowel was dissected free. The small bowel this area was suspicious for official. Small bowel was transected proximally distally with a GI stapler and then a [id number] end-to-end staple S was created using ROSI and TA stapler. 3-0 GI silk sutures across stitch. The anal area was further examined. There appeared to be evidence of the colon being involved in the fistula. At this point there was significant diverticular disease seen. The colon was then transected just proximal to the area of the fistula. The colon was transected with a GI stapler. The colon was then lengthened by dividing the white line of Toldt's and then a suitable length of colon was brought up for the colostomy. Due to the dense adhesions in the area of the fistula was decided to leave the area of the fistula lobe. The colostomy was then brought up through the abdominal wall in the left upper quadrant. The abdomen was areas of bleeding seen. The fascia was closed with looped #1 PDS suture. 2 skin sutures used to close the fascia. The skin was closed elvis. The inferior portion of the staple line was left open for possible drainage. The colostomy then matured with 3-0 Vicryl suture. Sterile dressing applied. The colostomy pleasant applied. Patient top she will well.
[2022-03-20] MEDS ORDERED: LACTATED RINGERS 1,000 ML IV ONE (14:14)
[2022-03-20] MEDS: ROPIVACAINE 250 MG, HYDROMORPHONE (PF) 5 MG in SODIUM CHLORIDE 0.9% 200 ML EPIDURAL PRN (14:25)
[2022-03-20 15:02] LABS: Glucose,Whole Blood 202 mg/dL (70-110)
[2022-03-20 17:15] LABS: Glucose,Whole Blood 218 mg/dL (70-110)
[2022-03-20] MEDS: HEPARIN SODIUM,PORCINE/PF 5,000 UNIT/0.5 ML SYRINGE SQ SCH (18:29)
[2022-03-20 20:43] LABS: Glucose,Whole Blood 199 mg/dL (70-110)
[2022-03-20] MEDS: ONDANSETRON 4 MG/2 ML VIAL IVP PRN (22:10)
[2022-03-21] MEDS: HEPARIN SODIUM,PORCINE/PF 5,000 UNIT/0.5 ML SYRINGE SQ SCH ×4 (01:16→22:57)
[2022-03-21] MEDS: ONDANSETRON 4 MG/2 ML VIAL IVP PRN ×3 (03:54→22:57)
[2022-03-21 07:12] LABS: Glucose,Whole Blood 299 mg/dL (70-110)
[2022-03-21] MEDS ORDERED: DEXTROSE 50% SYRINGE 50 ML IVP PRN ×2 (07:59)
[2022-03-21] MEDS: HYDROmorphone 0.5 MG/0.5 ML SYRINGE IVP PRN ×5 (08:10→22:57)
[2022-03-21] MEDS: INSULIN ASPART (NovoLOG) 100 UNIT/ML VIAL SQ SCH ×6 (08:12→21:22)
--- NOTE | 2022-03-21 08:50 | P.PN ---
Progress Note - Text Progress Note Date: 03/21/22 (5786) Anesthesia Postop day 1 Status post small bowel resection with epidural Day 2 Patient seen and examined. Doing well with complaint of pain and some nausea. VAS 8 out of 10. Complaint of pain is primarily from her site of chronic pain neck and midthoracic and lower extremities. Says abdomen pain is well controlled. Patient was questioning whether or not she could have her own oxycodone. Mild nausea. Ropivacaine 0.1% with Dilaudid 20 mcg/mL at 7 mL an hour. Objective: Vital signs reviewed. Afebrile Lungs: Good chest excursion Abdomen: Appears nondistended Other: Epidural Site Intact without induration. Dressing intact Neuro: No apparent motor block. Sensory within normal limits. Assessment: Status post small bowel resection postop day 1 Plan: Continue current care with your medical management. Anticipate reevaluation tomorrow. Had a discussion with patient regarding her expectations for pain control. 2 options 1 is to add a breakthrough medicine to see if that helps her other pains elsewhere in the body which I did Dilaudid 0.5 every 3 hours. If this fails and the patient still wishes to use her oxycodone nurse was told to contact us for discontinued of epidural. Did instruct the nurse that epidural will have the be pulled 6 hours after the last subcu heparin dose.
[2022-03-21] MEDS ORDERED: BACLOFEN 10 MG TAB PO PRN (09:53)
[2022-03-21] MEDS ORDERED: amLODIPine 5 MG TAB PO SCH (10:00)
[2022-03-21] MEDS: METOPROLOL TARTRATE 25 MG TAB PO SCH ×2 (10:14→21:18)
[2022-03-21 10:21] LABS: Basophils # (A) 0.03 X 10*3/uL (0.00-0.10); Basophils % (A) 0.2 %; Eosinophils # (A) 0 X 10*3/uL (0.04-0.35); Eosinophils % (A) 0 %; HCT 43.5 % (37.2-46.3); HGB 13.9 g/dL (12.0-15.0); Immature Grans, Automated 0.5 %; Lymphocytes # (A) 0.64 X 10*3/uL (0.90-5.00); Lymphocytes % (A) 4.8 %; MCH 28.1 pg (27.0-32.0); MCV 88.1 fL (80.0-97.0); Mean Platelet Volume 11.2 fL (9.5-12.2); Monocytes # (A) 0.32 X 10*3/uL (0.20-1.00); Monocytes % (A) 2.4 %; NRBC Per 100 WBC 0 /100 WBCS (0.0-0.0); Neutrophils # (A) 12.28 X 10*3/uL (1.80-7.70); Neutrophils % (A) 92.1 %; Platelet Count 366 X 10*3/uL (140-440); RBC 4.94 X 10*6/uL (4.10-5.20); RDW 15.5 % (11.5-14.5); WBC 13.33 X 10*3/uL (4.50-10.00)
[2022-03-21 10:44] LABS: African American GFR (CKD) 72.9 (60.0-200.0); Albumin 3.2 g/dL (3.8-4.9); Albumin/Globulin Ratio 1.07 (1.60-3.17); Anion Gap 12.8 mmol/L (10.00-18.00); BUN/Creat Ratio 16.37 Ratio (12.00-20.00); Blood Urea Nitrogen 14.5 mg/dL (9.0-27.0); Calcium 8.8 mg/dL (8.7-10.3); Carbon Dioxide 24.4 mmol/L (20.0-27.5); Globulin 2.9 g/dL (1.6-3.3); Non-African American GFR(CKD) 62.9 (60.0-200.0); Potassium 5.3 mmol/L (3.5-5.5); Total Bilirubin 0.6 mg/dL (0.30-1.20); Total Protein 6.1 g/dL (6.2-8.2)
[2022-03-21 12:09] LABS: Glucose,Whole Blood 379 mg/dL (70-110)
--- NOTE | 2022-03-21 13:27 | P.CONS ---
History of Present Illness - Reason for Consult Consult date: 03/21/22 Medical Management Requesting physician: Parviz Harrison - History of Present Illness This is a 76 year old female with history of asthma, coronary artery disease, hyperlipidemia, hypertension, thyroid disorder, Diabetes, history of ovarian cancer that was found after patient had hysterectomy and bilateral salpingoophrectomy. She was treated chemo finished in October of 2017, heart murmur, anemia, bipolar. 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 Patient is a former smoker and reports occasional alcohol use. Patient is admitted under general surgery and is postoperative day #1 exploratory laporatomy with small bowel resection and diverting colostomy for enterocutaneous fistula that had developed spontaneously about 2 weeks ago. Some of the outpatient work up does show elevated CRP at 6.0. Blood glucose is elevated. Patient currently has epidural infusion and receiving IV dilaudid for this reason home oxycodone will be placed on hold and can resume once epidural discontinued. She does report some chronic back pain today. She does have some expiratory wheezing, denies history of COPD but does carry a 1 1/2 pack per day history for 40 years. Reports no chest pain, no shortness of breath at rest. No nausea, or vomiting, reports she is having some stool in her ostomy. Reports some pain 2/10 to surgical site. Patient will be started on duonebs as needed and will also add pulmicort scheduled for this. Patient is on clear liquid will hold scheduled home insulin dosing and give small dose of long acting and also sliding scale and adjust as needed. Resumed home blood pressure medications as well. Checking BMP and also A1C pending as well. Blood pressure elevated today 168/73. REVIEW OF SYSTEMS: CONSTITUTIONAL: No fever, no malaise, no fatigue. HEENT: No recent visual problems or hearing problems. Denied any sore throat. CARDIOVASCULAR: No chest pain, orthopnea, PND, no palpitations, no syncope. PULMONARY: No shortness of breath, no cough, no hemoptysis. GASTROINTESTINAL: No diarrhea, no nausea, no vomiting, no abdominal pain. NEUROLOGICAL: No headaches, no weakness, no numbness. HEMATOLOGICAL: Denies any bleeding or petechiae. GENITOURINARY: Denies any burning micturition, frequency, or urgency. MUSCULOSKELETAL/RHEUMATOLOGICAL: Denies any joint pain, swelling, or any muscle pain. Reports some chronic back pain. ENDOCRINE: Denies any polyuria or polydipsia. The rest of the 14-point review of systems is negative. PHYSICAL EXAMINATION: GENERAL: The patient is alert and oriented x3, not in any acute distress. Well developed, well nourished. HEENT: Pupils are round and equally reacting to light. EOMI. No scleral icterus. No conjunctival pallor. Normocephalic, atraumatic. No pharyngeal erythema. No thyromegaly. CARDIOVASCULAR: S1 and S2 present. No murmurs, rubs, or gallops. PULMONARY: Faint expiratory wheezing. ABDOMEN: Soft, nontender, nondistended, normoactive bowel sounds. No palpable organomegaly. LLQ ostomy with some stool. MUSCULOSKELETAL: No joint swelling or deformity. EXTREMITIES: No cyanosis, clubbing, or pedal edema. NEUROLOGICAL: Gross neurological examination did not reveal any focal deficits. SKIN: No rashes. 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 Continue all other supportive care Thank you for this consultation The impression and plan of care has been dictated by Aniyah Harrison, Nurse Practitioner as directed. Dr. Apoorva MD I have performed a history and physical examination and medical decision making of this patient, discussed the same with the dictator, and agree with the dictators assessment and plan as written, documented as a scribe. Based on total visit time, I have performed more than 50% of this visit. Past Medical History Past Medical History: Asthma, Coronary Artery Disease (CAD), Cancer, Diabetes Mellitus, Hearing Disorder / Deafness, Hyperlipidemia, Hypertension, Osteoarthritis (OA), Thyroid Disorder Additional Past Medical History / Comment(s): R sided ovarian cancer- tx with chemo finished October 2017, heart murmur, sleeps sitting up, constipation, hx anemia- recieved iron infusion, urinary incontinence, past frequent UTI's, lost vision in lt eye but has peripheral vision-stated "from a calcium clot" History of Any Multi-Drug Resistant Organisms: ESBL Year Discovered:: 05/26/19 MDRO Source:: URINE Past Surgical History: Appendectomy, Cholecystectomy, Hysterectomy, Joint Replacement, Tonsillectomy Additional Past Surgical History / Comment(s): 06/2017 Exploratory laparotomy with ovarian tumor removal and lysis of adhesions, bilateral knee replacement, bilateral cataract removals, past(D&C. ), calcium clot lt eye, non functioning neurostimlator removed. glaucoma surgery, COLONOSCOPY Past Anesthesia/Blood Transfusion Reactions: No Reported Reaction Additional Past Anesthesia/Blood Transfusion Reaction / Comm: Unsure of family history, patient was adopted. Past Psychological History: Bipolar Smoking Status: Former smoker Past Alcohol Use History: Occasional Additional Past Alcohol Use History / Comment(s): Pt started smoking in 1959, quit for good in 1997. 1-2 PPD Past Drug Use History: None Reported - Past Family History Father History Unknown: Yes Family Medical History: Unable to Obtain Additional Family Medical History / Comment(s): Pt is adopted and does not know parents medical history. Medications and Allergies Home Medications Medication Instructions Recorded Confirmed Type Baclofen 10 mg PO QID PRN 01/06/16 03/16/22 History DULoxetine HCL [Cymbalta] 60 mg PO DAILY 01/06/16 03/16/22 History oxyCODONE HCL [oxyCODONE HCL (IR)] 10 mg PO QID PRN 01/06/16 03/16/22 History Insulin NPH Hum/Reg Insulin Hm 12 - 16 unit SQ AC-BRKFST 03/17/16 03/16/22 History [NovoLIN 70-30 100 UNIT/ML VIAL] Insulin NPH Hum/Reg Insulin Hm 16 - 22 unit SQ AC-SUPPER 03/17/16 03/16/22 History [NovoLIN 70-30 100 UNIT/ML VIAL] Levothyroxine Sodium [Synthroid] 100 mcg PO DAILY 07/25/17 03/16/22 History FLUoxetine HCL [PROzac] 10 mg PO DAILY 05/22/18 03/16/22 History Aspirin EC [Ecotrin Low Dose] 81 mg PO DAILY 12/31/18 03/16/22 History Atorvastatin Calcium [Lipitor] 40 mg PO HS 12/31/18 03/16/22 History Furosemide [Lasix] 20 mg PO DAILY 08/09/19 03/16/22 History Ubidecarenone [Co Q-10] 100 mg PO DAILY 08/11/19 03/16/22 History Cholecalciferol [Vitamin D3 (25 50 mcg PO DAILY 03/07/22 03/16/22 History Mcg = 1000 Iu)] Cranberry Fruit Extract [Cranberry] 500 mg PO DAILY 03/07/22 03/16/22 History L.acidoph,Paracasei, B.lactis 1 cap PO DAILY 03/07/22 03/16/22 History [Probiotic] amLODIPine [Norvasc] 5 mg PO DAILY 03/07/22 03/16/22 History Metoprolol Tartrate 12.5 mg PO BID #0 03/10/22 03/16/22 Rx metroNIDAZOLE [Flagyl] 500 mg PO QID #40 tab 03/10/22 03/16/22 Rx Allergies Allergy/AdvReac Type Severity Reaction Status Date / Time adhesive Allergy blisters Verified 03/20/22 10:48 amoxicillin Allergy Rash/Hives Verified 03/20/22 10:48 ciprofloxacin [From Cipro] AdvReac Dyspnea Verified 03/20/22 10:48 ciprofloxacin HCl AdvReac Dyspnea Verified 03/20/22 10:48 [From Cipro] Physical Exam Vitals: Vital Signs Temp Pulse Resp BP BP Pulse Ox 03/21/22 08:13 98 18 03/21/22 08:00 98.0 F 98 18 168/73 96 03/21/22 02:00 98.0 F 94 17 186/63 96 03/20/22 22:00 97.9 F 69 20 135/65 96 03/20/22 20:00 69 20 03/20/22 17:44 65 120/70 98 03/20/22 17:29 65 127/68 99 03/20/22 17:14 60 130/70 99 03/20/22 16:59 64 128/74 98 03/20/22 16:44 67 133/69 98 03/20/22 16:29 98.0 F 64 20 149/80 98 03/20/22 16:00 63 16 153/70 98 03/20/22 15:45 65 16 158/68 98 03/20/22 15:30 62 16 150/67 99 03/20/22 15:15 64 16 154/68 99 03/20/22 15:00 63 16 151/66 99 03/20/22 14:45 62 16 160/72 99 03/20/22 14:30 66 16 160/74 99 03/20/22 14:20 98.1 F 73 16 177/74 99 03/20/22 11:42 65 16 142/65 96 03/20/22 11:00 97.3 F L 65 16 136/60 96 Intake and Output 03/20/22 03/21/22 03/21/22 22:59 06:59 14:59 Intake Total 1000 Output Total 150 600 Balance -150 400 Intake: Intake, IV Titration 1000 Amount Lactated Ringers 1,000 ml 1000 @ 125 mls/hr IV .Q8H ONE Rx#:[id number] Output: Urine 150 600 Other: Voiding Method Indwelling Catheter Indwelling Catheter # Voids 0 Results CBC & Chem 7: 03/21/22 07:12 03/21/22 07:12 Labs: Abnormal Lab Results - Last 24 Hours (Table) 03/20/22 03/20/22 03/20/22 Range/Units 10:48 15:00 17:13 POC Glucose (mg/dL) 209 H 202 H 218 H (70-110) mg/dL 03/20/22 03/21/22 Range/Units 20:37 07:10 POC Glucose (mg/dL) 199 H 299 H (70-110) mg/dL
[2022-03-21 14:43] VITALS: BMI 40.0
--- NOTE | 2022-03-21 16:20 | P.PN ---
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 Patient had epidural in place. She reports her pain is controlled. She did have some nausea earlier and pain earlier that has improved. She does have some stool noted from her ostomy. She is afebrile. WBC is 13.3 hemoglobin is 13.9 platelets 336 sodium is 136 potassium is 5.3 creatinine 0.9 glucose 379 A1c is 7.4 Patient seen and examined with Dr. naidu PHYSICAL EXAM: VITAL SIGNS: Reviewed. GENERAL: Well-developed in no acute distress. HEENT: No sclera icterus. Extraocular movements grossly intact. Moist buccal mucosa. Head is atraumatic, normocephalic. ABDOMEN: Soft. Nondistended. Incision site with some minimal bloody drainage noted at middle of the incision. There is area that opened at the distal aspect has packing in place. Ostomy to the left with stool present NEUROLOGIC: Alert and oriented. Cranial nerves II through XII grossly intact. ASSESSMENT: 1. 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 Leukocytosis PLAN: -Wound VAC ordered for abdominal wound at the distal incision -Continue clear liquid diet -Continue epidural -Continue Aguirre catheter -Start IV fluids lactated Ringer at 75 mL per hour -Repeat CBC in a.m. -Encouraged patient to increase activity level -Encouraged patient to use incentive spirometer -GI prophylaxis Protonix and DVT prophylaxis subcu heparin Physician Beamer Hand note has been reviewed by physician. Signing provider agrees with the documented findings, assessment, and plan of care. Objective - Vital Signs Vital signs: Vital Signs Temp 98.4 F 03/21/22 14:00 Pulse 68 03/21/22 14:00 Resp 17 03/21/22 14:00 BP 147/63 03/21/22 14:00 Pulse Ox 94 L 03/21/22 14:00 FiO2 Intake & Output 03/20/22 03/21/22 03/21/22 18:59 06:59 18:59 Intake Total 1320 1000 Output Total 300 600 Balance 1020 400 Weight 104.1 kg 104.1 kg Intake: IV 1320 Intake, IV Titration 1000 Amount Lactated Ringers 1,000 ml 1000 @ 125 mls/hr IV .Q8H [facility] Rx#:[id number] Output: Urine 250 600 Estimated Blood Loss 50 Other: Voiding Method Indwelling Catheter Indwelling Catheter Indwelling Catheter # Voids 0 - Labs CBC & Chem 7: 03/21/22 07:12 03/21/22 07:12 Labs: Abnormal Lab Results - Last 24 Hours (Table) 03/20/22 03/20/22 03/21/22 Range/Units 17:13 20:37 07:10 WBC (4.50-10.00) X 10*3/uL RDW (11.5-14.5) % Immature Gran # (0.00-0.04) X 10*3/uL Neutrophils # (1.80-7.70) X 10*3/uL Lymphocytes # (0.90-5.00) X 10*3/uL Eosinophils # (0.04-0.35) X 10*3/uL Glucose (70-110) mg/dL POC Glucose (mg/dL) 218 H 199 H 299 H (70-110) mg/dL Hemoglobin A1c (0.0-6.0) % Total Protein (6.2-8.2) g/dL Albumin (3.8-4.9) g/dL Albumin/Globulin Ratio (1.60-3.17) g/dL 03/21/22 03/21/22 03/21/22 Range/Units 07:12 07:12 07:12 WBC 13.33 H (4.50-10.00) X 10*3/uL RDW 15.5 H (11.5-14.5) % Immature Gran # 0.06 H (0.00-0.04) X 10*3/uL Neutrophils # 12.28 H (1.80-7.70) X 10*3/uL Lymphocytes # 0.64 L (0.90-5.00) X 10*3/uL Eosinophils # 0 L (0.04-0.35) X 10*3/uL Glucose 360 H (70-110) mg/dL POC Glucose (mg/dL) (70-110) mg/dL Hemoglobin A1c 7.4 H (0.0-6.0) % Total Protein 6.1 L (6.2-8.2) g/dL Albumin 3.2 L (3.8-4.9) g/dL Albumin/Globulin Ratio 1.07 L (1.60-3.17) g/dL 03/21/22 Range/Units 12:07 WBC (4.50-10.00) X 10*3/uL RDW (11.5-14.5) % Immature Gran # (0.00-0.04) X 10*3/uL Neutrophils # (1.80-7.70) X 10*3/uL Lymphocytes # (0.90-5.00) X 10*3/uL Eosinophils # (0.04-0.35) X 10*3/uL Glucose (70-110) mg/dL POC Glucose (mg/dL) 379 H (70-110) mg/dL Hemoglobin A1c (0.0-6.0) % Total Protein (6.2-8.2) g/dL Albumin (3.8-4.9) g/dL Albumin/Globulin Ratio (1.60-3.17) g/dL
[2022-03-21 16:51] LABS: Glucose,Whole Blood 267 mg/dL (70-110)
[2022-03-21] MEDS: LACTATED RINGERS 1,000 ML IV SCH (16:53)
[2022-03-21] MEDS: BUDESONIDE 0.5 MG/2 ML NEBU INHALATION SCH (20:26)
[2022-03-21 20:51] LABS: Glucose,Whole Blood 207 mg/dL (70-110)
[2022-03-21] MEDS ORDERED: INSULIN DETEMIR (LEVEMIR) 100 UNIT/ML SYR SQ SCH (21:00)
[2022-03-21] MEDS: ATORVASTATIN 40 MG TAB PO SCH (21:18)
[2022-03-21] MEDS: INSULIN DETEMIR (LEVEMIR) 100 UNIT/ML SYR SQ SCH (21:18)
[2022-03-22] MEDS: ROPIVACAINE 250 MG, HYDROMORPHONE (PF) 5 MG in SODIUM CHLORIDE 0.9% 200 ML EPIDURAL PRN (02:02)
[2022-03-22] MEDS: HYDROmorphone 0.5 MG/0.5 ML SYRINGE IVP PRN ×3 (03:56→18:23)
[2022-03-22] MEDS: LACTATED RINGERS 1,000 ML IV SCH ×2 (05:22→05:49)
[2022-03-22] MEDS: LEVOTHYROXINE 100 MCG TAB PO SCH (05:49)
[2022-03-22 07:13] LABS: Glucose,Whole Blood 136 mg/dL (70-110)
--- NOTE | 2022-03-22 07:27 | P.PN ---
Progress Note - Text Progress Note Date: 03/22/22 Patient was seen and evaluated at bedside. Postop day # 2 status post small bowel resection with epidural day #3 patient is comfortable lying down. She rated her lower abdominal pain 3-4 out of 10 in severity. aching type of pain.. With activities moving her pain level saw her 5-6 out of 10 in severity, per patient her pain levels are tolerable. Moving extremities well without any difficulty. He denied any red flag symptoms, pain over the catheter site. Physical exam: Vital signs: stable, afebrile Catheter site: Clean, and intact Dressing. no tenderness over the catheter area. Moving lower extremities without difficulty. Assessment: Acute postoperative pain secondary to small bowel resection Plan: Continue epidural infusion solution at the rate of 7 mL per hour . We will continue epidural catheter one more day unless primary team planned to send the patient home then we will discontinue. Take oral pain medication as needed . Call anesthesia as needed. Hold the subcutaneous heparin for 6 hours before removing the epidural catheter.
[2022-03-22] MEDS: IPRATROPIUM-ALBUTEROL 3 ML NEB INHALATION PRN ×2 (07:50→20:56)
[2022-03-22] MEDS: BUDESONIDE 0.5 MG/2 ML NEBU INHALATION SCH ×2 (07:50→20:56)
[2022-03-22] MEDS: INSULIN ASPART (NovoLOG) 100 UNIT/ML VIAL SQ SCH ×7 (08:52→21:06)
[2022-03-22] MEDS: FLUoxetine HCL 10 MG CAP PO SCH (09:07)
[2022-03-22] MEDS: DULoxetine HCL 60 MG CAPSULE.DR PO SCH (09:07)
[2022-03-22] MEDS: METOPROLOL TARTRATE 25 MG TAB PO SCH ×2 (09:08→21:06)
[2022-03-22] MEDS: ASPIRIN 81 MG PO SCH (09:08)
[2022-03-22] MEDS: amLODIPine 10 MG TAB PO SCH (09:09)
[2022-03-22] MEDS: PANTOPRAZOLE 40 MG/10 ML VIAL IVP SCH (09:10)
[2022-03-22] MEDS: HEPARIN SODIUM,PORCINE/PF 5,000 UNIT/0.5 ML SYRINGE SQ SCH ×2 (09:10→15:24)
[2022-03-22 10:28] LABS: HCT 39.6 % (37.2-46.3); HGB 12.1 g/dL (12.0-15.0); MCH 27.8 pg (27.0-32.0); MCHC 30.6 g/dL (32.0-37.0); Mean Platelet Volume 11.2 fL (9.5-12.2); NRBC Per 100 WBC 0 /100 WBCS (0.0-0.0); Platelet Count 331 X 10*3/uL (140-440); RBC 4.35 X 10*6/uL (4.10-5.20); RDW 15.8 % (11.5-14.5); WBC 12.84 X 10*3/uL (4.50-10.00)
[2022-03-22 10:58] LABS: African American GFR (CKD) 82.4 (60.0-200.0); Anion Gap 4.9 mmol/L (10.00-18.00); BUN/Creat Ratio 12.13 Ratio (12.00-20.00); Blood Urea Nitrogen 9.7 mg/dL (9.0-27.0); Calcium 8.4 mg/dL (8.7-10.3); Carbon Dioxide 33.1 mmol/L (20.0-27.5); Non-African American GFR(CKD) 71.1 (60.0-200.0); Potassium 4.4 mmol/L (3.5-5.5)
[2022-03-22 11:44] LABS: Glucose,Whole Blood 137 mg/dL (70-110)
[2022-03-22 13:05] LABS: Basophils # (A) 0.03 X 10*3/uL (0.00-0.10); Basophils % (A) 0.2 %; Eosinophils # (A) 0.25 X 10*3/uL (0.04-0.35); Eosinophils % (A) 1.9 %; Immature Grans, Automated 0.5 %; Lymphocytes # (A) 1.05 X 10*3/uL (0.90-5.00); Lymphocytes % (A) 8.2 %; Monocytes # (A) 1.57 X 10*3/uL (0.20-1.00); Monocytes % (A) 12.2 %; Neutrophils # (A) 9.87 X 10*3/uL (1.80-7.70)
[2022-03-22 13:06] LABS: RBC Morphology NORMAL
--- NOTE | 2022-03-22 14:13 | P.PN ---
Subjective Progress Note Date: 03/22/22 This is a 76 year old female with history of asthma, coronary artery disease, hyperlipidemia, hypertension, thyroid disorder, Diabetes, history of ovarian cancer that was found after patient had hysterectomy and bilateral salpingoophrectomy. She was treated chemo finished in October of 2017, heart murmur, anemia, bipolar. Patient has history of PHARMACIST MANAGER surgery for ovarian cancer and multiple exploratory laprotomies and lysis of adhesions. Patient is a former smoker and reports occasional alcohol use. Patient is admitted under general surgery and is postoperative day #1 exploratory laporatomy with small bowel resection and diverting colostomy for enterocutaneous fistula that had developed spontaneously about 2 weeks ago. Some of the outpatient work up does show elevated CRP at 6.0. Blood glucose is elevated. Patient currently has epidural infusion and receiving IV dilaudid for this reason home oxycodone will be placed on hold and can resume once epidural discontinued. She does report some chronic back pain today. She does have some expiratory wheezing, denies history of COPD but does carry a 1 1/2 pack per day history for 40 years. Reports no chest pain, no shortness of breath at rest. No nausea, or vomiting, reports she is having some stool in her ostomy. Reports some pain 2/10 to surgical site. Patient will be started on duonebs as needed and will also add pulmicort scheduled for this. Patient is on clear liquid will hold scheduled home insulin dosing and give small dose of long acting and also sliding scale and adjust as needed. Resumed home blood pressure medications as well. Checking BMP and also A1C pending as well. Blood pressure elevated today 168/73. 03/22/2022 Patient is evaluated today sitting up in chair, worked with PT. She is postoperative day #2 exploratory laparotomy with small bowel resection and diverting colostomy. Continues with epidural and break through IV pain medication. oxycodone remains on hold. She has LLQ ostomy which has some maroon colored liquid and discussed with primary. She has midline incision clean intact and wound vac applied to lower aspect of midline incision. Lungs are clear today wheezing improved with inhalers. White count today 12.84, sodium 134, blood glucose has improved to the 130s. Blood pressure 155/67. Review of Systems Constitutional: Denied any fatigue denied any fever. Cardio vascular: denied any chest pain, palpitations Gastrointestinal: denied any nausea, vomiting. No abdominal pain. Pulmonary: Denied any shortness of breath cough Neurologic denied any new focal deficits All inpatient medications were reviewed and appropriate changes in these medications as dictated in the interval history and assessment and plan. PHYSICAL EXAMINATION: GENERAL: The patient is alert and oriented x3, not in any acute distress. Well developed, well nourished. HEENT: Pupils are round and equally reacting to light. EOMI. No scleral icterus. No conjunctival pallor. Normocephalic, atraumatic. No pharyngeal erythema. No thyromegaly. CARDIOVASCULAR: S1 and S2 present. No murmurs, rubs, or gallops. PULMONARY: Lungs are diminished. ABDOMEN: Soft, nontender, nondistended, normoactive bowel sounds. No palpable organomegaly. LLQ ostomy with some stool. Midline incision with dressing intact and wound vac in place with no air leak. MUSCULOSKELETAL: No joint swelling or deformity. EXTREMITIES: No cyanosis, clubbing, or pedal edema. NEUROLOGICAL: Gross neurological examination did not reveal any focal deficits. SKIN: No rashes. Assessment and plan Assessment Postoperative day #2 exploratory laparotomy with small bowel resection and diverting colostomy secondary to spontaneous enterocutaneous fistula Leukocytosis, reactive to above Hypertension Dysplipidemia Diabetes Mellitus type 2 History asthma Hypothyroidism Dysplipidemia History of ovarian cancer with PHARMACIST MANAGER surgery and chemo completed in October of 2017 History of multiple bowel surgeries History of chronic back pain on oxycodone outpatient GI Prophylaxis DVT Prophylaxis: subcu heparin Full Code Plan Continue inhalers Encourage incentive spirometery Continue to hold oxycodone and can resume once patient is off epidural Diet advanced per primary Continue insulin and blood glucose monitoring. Continue all other supportive care Patient will require subacute rehab on discharge Thank you for this consultation The impression and plan of care has been dictated by Aniyah Harrison, Nurse Practitioner as directed. Dr. Apoorva MD I have performed a history and physical examination and medical decision making of this patient, discussed the same with the dictator, and agree with the dictators assessment and plan as written, documented as a scribe. Based on total visit time, I have performed more than 50% of this visit. Objective - Vital Signs Vital signs: Vital Signs Temp 98.8 F 03/22/22 08:00 Pulse 76 03/22/22 08:07 Resp 14 03/22/22 08:00 BP 155/67 03/22/22 08:00 Pulse Ox 93 L 03/22/22 08:00 FiO2 Intake & Output 03/21/22 03/22/22 03/22/22 18:59 06:59 18:59 Intake Total 219 Output Total 800 1225 Balance -581 -1225 Weight 104.1 kg Intake: Intake, IV Titration 219 Amount Lactated Ringers 1,000 ml 75 @ 75 mls/hr IV .[id number] [facility] Rx#:[id number] Ropivacaine 250 mg 144 Hydromorphone (Pf) 5 mg In Sodium Chloride 0.9% 200 ml @ Per Protocol EPIDURAL .Q0M PRN Rx#: [id number] Output: Urine 800 1225 Other: Voiding Method Indwelling Catheter Indwelling Catheter Indwelling Catheter - Labs CBC & Chem 7: 03/22/22 07:11 03/22/22 07:11 Labs: Abnormal Lab Results - Last 24 Hours (Table) 03/21/22 03/21/22 03/21/22 Range/Units 07:12 16:49 20:49 WBC (4.50-10.00) X 10*3/uL MCHC (32.0-37.0) g/dL RDW (11.5-14.5) % Immature Gran # (0.00-0.04) X 10*3/uL Neutrophils # (1.80-7.70) X 10*3/uL Monocytes # (0.20-1.00) X 10*3/uL Sodium (135-145) mmol/L Carbon Dioxide (20.0-27.5) mmol/L Anion Gap (10.00-18.00) mmol/L Glucose (70-110) mg/dL POC Glucose (mg/dL) 267 H 207 H (70-110) mg/dL Hemoglobin A1c 7.4 H (0.0-6.0) % Calcium (8.7-10.3) mg/dL 03/22/22 03/22/22 03/22/22 Range/Units 07:11 07:11 07:11 WBC 12.84 H (4.50-10.00) X 10*3/uL MCHC 30.6 L (32.0-37.0) g/dL RDW 15.8 H (11.5-14.5) % Immature Gran # 0.07 H (0.00-0.04) X 10*3/uL Neutrophils # 9.87 H (1.80-7.70) X 10*3/uL Monocytes # 1.57 H (0.20-1.00) X 10*3/uL Sodium 134 L (135-145) mmol/L Carbon Dioxide 33.1 H (20.0-27.5) mmol/L Anion Gap 4.90 L (10.00-18.00) mmol/L Glucose 143 H (70-110) mg/dL POC Glucose (mg/dL) 136 H (70-110) mg/dL Hemoglobin A1c (0.0-6.0) % Calcium 8.4 L (8.7-10.3) mg/dL 03/22/22 Range/Units 11:42 WBC (4.50-10.00) X 10*3/uL MCHC (32.0-37.0) g/dL RDW (11.5-14.5) % Immature Gran # (0.00-0.04) X 10*3/uL Neutrophils # (1.80-7.70) X 10*3/uL Monocytes # (0.20-1.00) X 10*3/uL Sodium (135-145) mmol/L Carbon Dioxide (20.0-27.5) mmol/L Anion Gap (10.00-18.00) mmol/L Glucose (70-110) mg/dL POC Glucose (mg/dL) 137 H (70-110) mg/dL Hemoglobin A1c (0.0-6.0) % Calcium (8.7-10.3) mg/dL Assessment and Plan Time with Patient: Less than 30
--- NOTE | 2022-03-22 15:39 | P.PN ---
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 Patient had epidural in place. She reports her pain is controlled. She denies any nausea or vomiting. She has wound VAC in place. Her ostomy has a small amount of stool and sanguinous output. She was evaluated by physical therapy the recommending subacute rehab. Afebrile. WBC is down from 13.33-12.84 hemoglobin 12.1 platelets 331 creatinine is 0.8 Patient seen and examined with Dr. naidu PHYSICAL EXAM: VITAL SIGNS: Reviewed. GENERAL: Well-developed in no acute distress. HEENT: No sclera icterus. Extraocular movements grossly intact. Moist buccal mucosa. Head is atraumatic, normocephalic. ABDOMEN: Soft. Nondistended. Incision site clean dry and intact. Wound VAC distal aspect of incision. With service drainage and wound VAC. Ostomy with small amount of stool and sanguinous output. NEUROLOGIC: Alert and oriented. Cranial nerves II through XII grossly intact. ASSESSMENT: 1. 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 Leukocytosis PLAN: -Advance diet to carb consistent regular -Hep-Lock IV fluids -Continue wound VAC -Continue epidural -Continue Aguirre catheter -Repeat CBC in a.m. -Encouraged patient to increase activity level -Encouraged patient to use incentive spirometer -Anticipate discharge to subacute rehab possibly tomorrow -GI prophylaxis Protonix and DVT prophylaxis subcu heparin Physician Documentation Clerk note has been reviewed by physician. Signing provider agrees with the documented findings, assessment, and plan of care. Objective - Vital Signs Vital signs: Vital Signs Temp 98.8 F 03/22/22 08:00 Pulse 76 03/22/22 08:07 Resp 14 03/22/22 08:00 BP 155/67 03/22/22 08:00 Pulse Ox 93 L 03/22/22 08:00 FiO2 Intake & Output 03/21/22 03/22/22 03/22/22 18:59 06:59 18:59 Intake Total 219 Output Total 800 1225 Balance -581 -1225 Weight 104.1 kg Intake: Intake, IV Titration 219 Amount Lactated Ringers 1,000 ml 75 @ 75 mls/hr IV .[id number] [facility] Rx#:[id number] Ropivacaine 250 mg 144 Hydromorphone (Pf) 5 mg In Sodium Chloride 0.9% 200 ml @ Per Protocol EPIDURAL .Q0M PRN Rx#: [id number] Output: Urine 800 1225 Other: Voiding Method Indwelling Catheter Indwelling Catheter Indwelling Catheter - Labs CBC & Chem 7: 03/22/22 07:11 03/22/22 07:11 Labs: Abnormal Lab Results - Last 24 Hours (Table) 03/21/22 03/21/22 03/22/22 Range/Units 16:49 20:49 07:11 WBC (4.50-10.00) X 10*3/uL MCHC (32.0-37.0) g/dL RDW (11.5-14.5) % Immature Gran # (0.00-0.04) X 10*3/uL Neutrophils # (1.80-7.70) X 10*3/uL Monocytes # (0.20-1.00) X 10*3/uL Sodium 134 L (135-145) mmol/L Carbon Dioxide 33.1 H (20.0-27.5) mmol/L Anion Gap 4.90 L (10.00-18.00) mmol/L Glucose 143 H (70-110) mg/dL POC Glucose (mg/dL) 267 H 207 H (70-110) mg/dL Calcium 8.4 L (8.7-10.3) mg/dL 03/22/22 03/22/22 03/22/22 Range/Units 07:11 07:11 11:42 WBC 12.84 H (4.50-10.00) X 10*3/uL MCHC 30.6 L (32.0-37.0) g/dL RDW 15.8 H (11.5-14.5) % Immature Gran # 0.07 H (0.00-0.04) X 10*3/uL Neutrophils # 9.87 H (1.80-7.70) X 10*3/uL Monocytes # 1.57 H (0.20-1.00) X 10*3/uL Sodium (135-145) mmol/L Carbon Dioxide (20.0-27.5) mmol/L Anion Gap (10.00-18.00) mmol/L Glucose (70-110) mg/dL POC Glucose (mg/dL) 136 H 137 H (70-110) mg/dL Calcium (8.7-10.3) mg/dL
[2022-03-22 16:40] LABS: Glucose,Whole Blood 118 mg/dL (70-110)
[2022-03-22 19:58] LABS: Glucose,Whole Blood 235 mg/dL (70-110)
[2022-03-22] MEDS: ATORVASTATIN 40 MG TAB PO SCH (21:06)
[2022-03-22] MEDS: INSULIN DETEMIR (LEVEMIR) 100 UNIT/ML SYR SQ SCH (21:06)
[2022-03-23] MEDS: HEPARIN SODIUM,PORCINE/PF 5,000 UNIT/0.5 ML SYRINGE SQ SCH ×3 (00:18→15:53)
[2022-03-23] MEDS: HYDROmorphone 0.5 MG/0.5 ML SYRINGE IVP PRN ×2 (00:19→06:04)
[2022-03-23] MEDS: LEVOTHYROXINE 100 MCG TAB PO SCH (06:03)
--- NOTE | 2022-03-23 06:27 | P.PN ---
Progress Note - Text Date: 03/23/2022 Time: 06:21 The patient is status post, exploratory laparotomy, postoperative day number 3. The patient has no complaints of headache. The patient does not complain of any lower extremity numbness or weakness. The epidural is running at 6 mL per hour. VAS 1-10. Patient complains of some nausea which is being treated by the service. The epidural will be discontinued this a.m. Pain meds will be provided to the patient by the service.
[2022-03-23 06:58] LABS: Glucose,Whole Blood 99 mg/dL (70-110)
[2022-03-23] MEDS: INSULIN ASPART (NovoLOG) 100 UNIT/ML VIAL SQ SCH ×4 (07:19→12:44)
[2022-03-23] MEDS ORDERED: HYDROcodone/APAP 5-325MG 1 EACH TAB PO PRN (07:58)
[2022-03-23] MEDS: ASPIRIN 81 MG PO SCH (08:22)
[2022-03-23] MEDS: DULoxetine HCL 60 MG CAPSULE.DR PO SCH (08:23)
[2022-03-23] MEDS: METOPROLOL TARTRATE 25 MG TAB PO SCH (08:23)
[2022-03-23] MEDS: FLUoxetine HCL 10 MG CAP PO SCH (08:23)
[2022-03-23] MEDS: amLODIPine 10 MG TAB PO SCH (08:23)
[2022-03-23] MEDS: PANTOPRAZOLE 40 MG/10 ML VIAL IVP SCH (08:24)
[2022-03-23] MEDS: LACTATED RINGERS 1,000 ML IV SCH (08:33)
[2022-03-23] MEDS: BUDESONIDE 0.5 MG/2 ML NEBU INHALATION SCH (08:45)
[2022-03-23] MEDS: IPRATROPIUM-ALBUTEROL 3 ML NEB INHALATION PRN (08:45)
[2022-03-23] MEDS ORDERED: diphenhydrAMINE 25 MG CAP PO PRN (08:53)
[2022-03-23 09:13] VITALS: TEMP 98.3
[2022-03-23 10:51] LABS: Basophils # (A) 0.03 X 10*3/uL (0.00-0.10); Basophils % (A) 0.3 %; Eosinophils # (A) 0.39 X 10*3/uL (0.04-0.35); Eosinophils % (A) 3.3 %; HCT 38.1 % (37.2-46.3); HGB 11.9 g/dL (12.0-15.0); Immature Grans, Automated 0.4 %; Lymphocytes # (A) 0.86 X 10*3/uL (0.90-5.00); Lymphocytes % (A) 7.2 %; MCH 27.9 pg (27.0-32.0); MCHC 31.2 g/dL (32.0-37.0); MCV 89.4 fL (80.0-97.0); Mean Platelet Volume 11.2 fL (9.5-12.2); Monocytes # (A) 1.33 X 10*3/uL (0.20-1.00); Monocytes % (A) 11.2 %; NRBC Per 100 WBC 0 /100 WBCS (0.0-0.0); Neutrophils # (A) 9.26 X 10*3/uL (1.80-7.70); Neutrophils % (A) 77.6 %; Platelet Count 307 X 10*3/uL (140-440); RBC 4.26 X 10*6/uL (4.10-5.20); RDW 15.8 % (11.5-14.5); WBC 11.92 X 10*3/uL (4.50-10.00)
[2022-03-23 11:07] LABS: African American GFR (CKD) 96.9 (60.0-200.0); Anion Gap 6.2 mmol/L (10.00-18.00); BUN/Creat Ratio 11.14 Ratio (12.00-20.00); Blood Urea Nitrogen 7.8 mg/dL (9.0-27.0); Calcium 8.3 mg/dL (8.7-10.3); Carbon Dioxide 31.8 mmol/L (20.0-27.5); Non-African American GFR(CKD) 83.6 (60.0-200.0); Potassium 4.5 mmol/L (3.5-5.5)
[2022-03-23 11:54] LABS: Glucose,Whole Blood 170 mg/dL (70-110)
--- NOTE | 2022-03-23 13:46 | P.DS ---
Providers Date of admission: 03/20/22 10:13 Expected date of discharge: 03/23/22 Attending physician: Parviz Harrison Consults: 03/20/22 14:14 Consult Physician Routine Consulting Provider: Abilio Patel Consult Reason/Comments: Medical management Do you want consulting provider notified?: Yes Primary care physician: Linda Sanders Hospital Course: Discharge diagnosis 1. 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 She is status post exploratory laparotomy with small bowel resection and diverting colostomy. She tolerated surgery well. Her pain is controlled. Her ostomy is functioning. She is afebrile. Her white count is trending downwards off of antibiotics. Patient is up and ambulating. She has worked with physical therapy. They are recommending subacute rehab. Patient will be discharged to subacute rehab today. Patient is stable for discharge. Please refer to chart for further details. Physician Dot Compliance Coordinator note has been reviewed by physician. Signing provider agrees with the documented findings, assessment, and plan of care. Patient Condition at Discharge: Stable Plan - Discharge Summary Discharge Rx Participant: No New Discharge Prescriptions: New oxyCODONE HCL [oxyCODONE HCL (IR)] 10 mg PO Q6H PRN 3 Days #12 tab PRN Reason: Pain No Action oxyCODONE HCL [oxyCODONE HCL (IR)] 10 mg PO QID PRN PRN Reason: Pain DULoxetine HCL [Cymbalta] 60 mg PO DAILY Baclofen 10 mg PO QID PRN PRN Reason: Muscle Spasm Insulin NPH Hum/Reg Insulin Hm [NovoLIN 70-30 100 UNIT/ML VIAL] 12 - 16 unit SQ AC-BRKFST Insulin NPH Hum/Reg Insulin Hm [NovoLIN 70-30 100 UNIT/ML VIAL] 16 - 22 unit SQ AC-SUPPER Levothyroxine Sodium [Synthroid] 100 mcg PO DAILY FLUoxetine HCL [PROzac] 10 mg PO DAILY Aspirin EC [Ecotrin Low Dose] 81 mg PO DAILY Atorvastatin Calcium [Lipitor] 40 mg PO HS Furosemide [Lasix] 20 mg PO DAILY Ubidecarenone [Co Q-10] 100 mg PO DAILY amLODIPine [Norvasc] 5 mg PO DAILY Cranberry Fruit Extract [Cranberry] 500 mg PO DAILY L.acidoph,Paracasei, B.lactis [Probiotic] 1 cap PO DAILY Cholecalciferol [Vitamin D3 (25 Mcg = 1000 Iu)] 50 mcg PO DAILY metroNIDAZOLE [Flagyl] 500 mg PO QID #40 tab Metoprolol Tartrate 12.5 mg PO BID #0 Discharge Medication List Baclofen 10 mg PO QID PRN 01/06/16 [History] DULoxetine HCL [Cymbalta] 60 mg PO DAILY 01/06/16 [History] oxyCODONE HCL [oxyCODONE HCL (IR)] 10 mg PO QID PRN 01/06/16 [History] Insulin NPH Hum/Reg Insulin Hm [NovoLIN 70-30 100 UNIT/ML VIAL] 12 - 16 unit SQ AC-BRKFST 03/17/16 [History] Insulin NPH Hum/Reg Insulin Hm [NovoLIN 70-30 100 UNIT/ML VIAL] 16 - 22 unit SQ AC-SUPPER 03/17/16 [History] Levothyroxine Sodium [Synthroid] 100 mcg PO DAILY 07/25/17 [History] FLUoxetine HCL [PROzac] 10 mg PO DAILY 05/22/18 [History] Aspirin EC [Ecotrin Low Dose] 81 mg PO DAILY 12/31/18 [History] Atorvastatin Calcium [Lipitor] 40 mg PO HS 12/31/18 [History] Furosemide [Lasix] 20 mg PO DAILY 08/09/19 [History] Ubidecarenone [Co Q-10] 100 mg PO DAILY 08/11/19 [History] Cholecalciferol [Vitamin D3 (25 Mcg = 1000 Iu)] 50 mcg PO DAILY 03/07/22 [History] Cranberry Fruit Extract [Cranberry] 500 mg PO DAILY 03/07/22 [History] L.acidoph,Paracasei, B.lactis [Probiotic] 1 cap PO DAILY 03/07/22 [History] amLODIPine [Norvasc] 5 mg PO DAILY 03/07/22 [History] Metoprolol Tartrate 12.5 mg PO BID #0 03/10/22 [Rx] metroNIDAZOLE [Flagyl] 500 mg PO QID #40 tab 03/10/22 [Rx] oxyCODONE HCL [oxyCODONE HCL (IR)] 10 mg PO Q6H PRN 3 Days #12 tab 03/23/22 [Rx] Follow up Appointment(s)/Referral(s): [facility] Visiting Nurse, [NON-STAFF] - As Needed Parviz Harrison MD [STAFF PHYSICIAN] - 1 Week Patient Instructions/Handouts: Colostomy Care (GEN) Activity/Diet/Wound Care/Special Instructions: Colostomy Care recommendations for after hospital stay: Last Pouching system change: 03.23.2022 Mrs Mckinnon will have the following colostomy care supplies form the hospital on discharge; No driving while taking pain meds No lifting over 10 pounds Shower daily. No soaking or tub baths for 2 weeks Very light activity until you are reevaluated at your follow up appointment with your surgeon Discharge Disposition: TRANSFER TO SNF/ECF
[2022-03-23 16:10] VITALS: BP 147/60; PULSE 86; RESP 16
--- NOTE | 2022-03-24 11:20 | PN ---
PROGRESS NOTE SUBJECTIVE: This is a 76-year-old woman, who was admitted with diverting colostomy, is being closely monitored. No chest pain. No palpitations. No fever. PHYSICAL EXAMINATION: VITAL SIGNS: Pulse is 76, blood pressure ntd, respirations 14. HEENT: Conjunctivae normal. NECK: No JVD. CARDIOVASCULAR: S1, S2 muffled. RESPIRATION: Clear to auscultation. ABDOMEN: Soft, status post surgery. NERVOUS SYSTEM: Nonfocal. LABORATORY DATA: Reviewed. ASSESSMENT: 1. Status post exploratory laparotomy with small bowel resection and diverting colostomy for spontaneous enterocutaneous fistula. 2. Hypertension. 3. Hyperlipidemia. 4. Diabetes type 2. 5. Multiple medical issues. RECOMMENDATIONS: In this 76-year-old woman, who presented with multiple complex medical issues at this time, I recommend to continue the current medication, continue symptomatic treatment. Otherwise, repeat labs. Incentive spirometry. DVT prophylaxis. Closely follow with Surgery. Further recommendations to follow. MMODL / IJN: [id number] / MTDD
== END 2022-03-23 17:00 | DRG 331 ==
LOC: EDSTATUS 10:10 → 2ORMAIN 10:13 → 4SSUR 15:53
PROVIDERS: ADMIT Surgery; ATTEND Surgery
PROC: 0DT80ZZ Resection of Small Intestine, Open Approach (ICD-10-PCS; 2022-03-20)
PROC: 0DNW0ZZ Release Peritoneum, Open Approach (ICD-10-PCS; 2022-03-20)
PROC: 0D1K0Z4 Bypass Ascending Colon to Cutaneous, Open Approach (ICD-10-PCS; principal; 2022-03-20 12:10)
DX: K63.2 Fistula of intestine (principal); I10 Essential (primary) hypertension; D72.829 Elevated white blood cell count, unspecified; I25.10 Atherosclerotic heart disease of native coronary artery without angina pectoris; D64.9 Anemia, unspecified; E03.9 Hypothyroidism, unspecified; K59.00 Constipation, unspecified; K66.0 Peritoneal adhesions (postprocedural) (postinfection); E11.9 Type 2 diabetes mellitus without complications; E78.5 Hyperlipidemia, unspecified; G89.29 Other chronic pain; H91.90 Unspecified hearing loss, unspecified ear; J45.909 Unspecified asthma, uncomplicated; Z79.4 Long term (current) use of insulin; Z79.82 Long term (current) use of aspirin; Z79.890 Hormone replacement therapy; Z79.891 Long term (current) use of opiate analgesic; Z79.899 Other long term (current) drug therapy; Z85.43 Personal history of malignant neoplasm of ovary; Z87.440 Personal history of urinary (tract) infections; Z87.891 Personal history of nicotine dependence; Z90.710 Acquired absence of both cervix and uterus; Z96.653 Presence of artificial knee joint, bilateral; Z88.1 Allergy status to other antibiotic agents; Z91.048 Other nonmedicinal substance allergy status; Z90.49 Acquired absence of other specified parts of digestive tract; Z98.42 Cataract extraction status, left eye; Z98.41 Cataract extraction status, right eye
CPT/HCPCS: 80048; 80053; 83036; 84132; 85025; 88307; 94640

== ENCOUNTER 2022-05-05 20:23 | Emergency (ER) | payer MEDICARE ==
[2022-05-05 20:30] VITALS: BP 170/69; PULSE 66; RESP 16; TEMP 98.2
--- NOTE | 2022-05-05 21:00 | ED ---
Abdominal Pain HPI - General Chief Complaint: Abdominal Pain Stated Complaint: bleeding from stoma Time Seen by Provider: 05/05/22 20:48 Source: patient, RN notes reviewed, old records reviewed Mode of arrival: EMS Limitations: no limitations - History of Present Illness Initial Comments: 76-year-old female presents via ambulance after sustaining an abrasion while changing her colostomy bag today. Patient states that she could not get the bleeding to stop so she called EMS. The bleeding has stopped at this time. Patient has no other complaints. MD Complaint: other (abrasion at stoma site) Severity scale (1-10): 0 Consistency: now resolved Associated Symptoms: denies other symptoms - Related Data Home Medications Medication Instructions Recorded Confirmed Baclofen 10 mg PO QID PRN 01/06/16 03/16/22 DULoxetine HCL [Cymbalta] 60 mg PO DAILY 01/06/16 03/16/22 Insulin NPH Hum/Reg Insulin Hm 12 - 16 unit SQ AC-BRKFST 03/17/16 03/16/22 [NovoLIN 70-30 100 UNIT/ML VIAL] Insulin NPH Hum/Reg Insulin Hm 16 - 22 unit SQ AC-SUPPER 03/17/16 03/16/22 [NovoLIN 70-30 100 UNIT/ML VIAL] Levothyroxine Sodium [Synthroid] 100 mcg PO DAILY 07/25/17 03/16/22 FLUoxetine HCL [PROzac] 10 mg PO DAILY 05/22/18 03/16/22 Aspirin EC [Ecotrin Low Dose] 81 mg PO DAILY 12/31/18 03/16/22 Atorvastatin Calcium [Lipitor] 40 mg PO HS 12/31/18 03/16/22 Ubidecarenone [Co Q-10] 100 mg PO DAILY 08/11/19 03/16/22 Cholecalciferol [Vitamin D3 (25 50 mcg PO DAILY 03/07/22 03/16/22 Mcg = 1000 Iu)] Cranberry Fruit Extract [Cranberry] 500 mg PO DAILY 03/07/22 03/16/22 L.acidoph,Paracasei, B.lactis 1 cap PO DAILY 03/07/22 03/16/22 [Probiotic] Previous Rx's Medication Instructions Recorded Budesonide [Pulmicort] 0.5 mg INHALATION RT-BID ml 03/23/22 Heparin Sodium,Porcine [Heparin 5,000 unit SQ Q12HR #60 each 03/23/22 Sodium] Ipratropium-Albuterol Nebulize 3 ml INHALATION RT-QID PRN each 03/23/22 [Duoneb 0.5 mg-3 mg/3 ml Soln] Metoprolol Tartrate [Lopressor] 25 mg PO BID tab 03/23/22 amLODIPine [Norvasc] 10 mg PO DAILY tab 03/23/22 oxyCODONE HCL [oxyCODONE HCL (IR)] 10 mg PO Q6H PRN 3 Days #12 tab 03/23/22 Allergies Allergy/AdvReac Type Severity Reaction Status Date / Time adhesive Allergy blisters Verified 03/20/22 10:48 amoxicillin Allergy Rash/Hives Verified 03/20/22 10:48 ciprofloxacin [From Cipro] AdvReac Dyspnea Verified 03/20/22 10:48 ciprofloxacin HCl AdvReac Dyspnea Verified 03/20/22 10:48 [From Cipro] Review of Systems ROS Statement: Those systems with pertinent positive or pertinent negative responses have been documented in the HPI. ROS Other: All systems not noted in ROS Statement are negative. Past Medical History Past Medical History: Asthma, Coronary Artery Disease (CAD), Cancer, Diabetes Mellitus, Hearing Disorder / Deafness, Hyperlipidemia, Hypertension, Osteoarthritis (OA), Thyroid Disorder Additional Past Medical History / Comment(s): R sided ovarian cancer- tx with chemo finished October 2017, heart murmur, sleeps sitting up, constipation, hx anemia- recieved iron infusion, urinary incontinence, past frequent UTI's, lost vision in lt eye but has peripheral vision-stated "from a calcium clot" History of Any Multi-Drug Resistant Organisms: ESBL Date of last positivie culture/infection: 05/26/19 MDRO Source:: URINE Past Surgical History: Appendectomy, Cholecystectomy, Hysterectomy, Joint Replacement, Tonsillectomy Additional Past Surgical History / Comment(s): 06/2017 Exploratory laparotomy with ovarian tumor removal and lysis of adhesions, bilateral knee replacement, bilateral cataract removals, past(D&C. ), calcium clot lt eye, non functioning neurostimlator removed. glaucoma surgery, COLONOSCOPY Past Anesthesia/Blood Transfusion Reactions: No Reported Reaction Additional Past Anesthesia/Blood Transfusion Reaction / Comment(s): Unsure of family history, patient was adopted. Past Psychological History: Bipolar Smoking Status: Former smoker Past Alcohol Use History: Occasional Additional Past Alcohol Use History / Comment(s): Pt started smoking in 1959, quit for good in 1997. 1-2 PPD Past Drug Use History: None Reported - Past Family History Father History Unknown: Yes Family Medical History: Unable to Obtain Additional Family Medical History / Comment(s): Pt is adopted and does not know parents medical history. General Exam Limitations: no limitations General appearance: alert, in no apparent distress Head exam: Present: atraumatic Eye exam: Absent: scleral icterus, conjunctival injection, periorbital swelling ENT exam: Present: mucous membranes moist Neck exam: Absent: tenderness, meningismus Respiratory exam: Present: normal lung sounds bilaterally. Absent: respiratory distress, accessory muscle use Cardiovascular Exam: Present: regular rate GI/Abdominal exam: Present: soft, other (Colostomy bag with small amount of brown stool, no evidence of bleeding; fistula mid lower abdomen). Absent: distended, tenderness, rigid Extremities exam: Present: normal capillary refill Neurological exam: Present: alert, oriented X3 Psychiatric exam: Present: normal affect, normal mood Skin exam: Present: warm, dry, normal color. Absent: cyanosis, diaphoretic Course Vital Signs 05/05/22 20:26 Temperature 98.2 F Pulse Rate 66 Respiratory 16 Rate Blood Pressure 170/69 O2 Sat by Pulse 94 L Oximetry Medical Decision Making - Medical Decision Making Patient presents with complaints of abrasion at stoma site when changing her colostomy today. Patient states was unable to get the bleeding to stop so she called the ambulance. The bleeding has resolved at this time. There is no evidence of bleeding at this time or evidence of abrasion. Colostomy with small amount of brown stool. Patient states colostomy was placed due to complications from diverticulitis 03/23/22. Patient does have an open mid abdominal fistula that is being dressed by wound care twice a week. Seen yesterday and prescribed antibiotics for mild errythema. Patient has no further complaints. She is agreeable to being discharged home. States that she does live at home alone and is able to ambulate without any difficulties. She will be discharged home to follow up with her doctor. Case discussed with Dr. De La Cruz Disposition Clinical Impression: Visit for wound care Disposition: HOME SELF-CARE Condition: Good Instructions (If sedation given, give patient instructions): Chronic Wound Care (ED) Additional Instructions: Take antibiotics as prescribed by your wound care provider. Follow-up with your doctor next week. Return to the emergency room with any new or concerning symptoms. Is patient prescribed a controlled substance at d/c from ED?: No Referrals: Linda Sanders MD [Primary Care Provider] - 1-2 days Time of Disposition: 21:00
== END 2022-05-05 21:34 | disposition home or self-care (01) ==
LOC: EC 20:23
DX: Z48.01 Encounter for change or removal of surgical wound dressing (principal); J45.909 Unspecified asthma, uncomplicated; I25.10 Atherosclerotic heart disease of native coronary artery without angina pectoris; E11.9 Type 2 diabetes mellitus without complications; E78.5 Hyperlipidemia, unspecified; I10 Essential (primary) hypertension; M19.90 Unspecified osteoarthritis, unspecified site; E07.9 Disorder of thyroid, unspecified; F31.9 Bipolar disorder, unspecified; Z87.891 Personal history of nicotine dependence; Z91.048 Other nonmedicinal substance allergy status; Z88.0 Allergy status to penicillin; Z88.1 Allergy status to other antibiotic agents; Z79.899 Other long term (current) drug therapy
CPT/HCPCS: 99284

== ENCOUNTER → 2022-05-24 | Outpatient (CLI) | payer MEDICARE ==
--- NOTE | 2022-05-24 14:58 | CT ---
EXAMINATION TYPE: CT ChestAbdPelvis w con CT DLP: 2176 mGycm, Automated exposure control for dose reduction was used. 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 Two-dimensional cor onal and sagittal reconstructions were obtained. Contrast used: 80 cc of Isovue 300 Oral contrast used: Findings: CHEST: LUNGS/ PLEURA: The lung parenchyma appears unremarkable. AIRWAY: Patent and unremarkable. HEART: Size within normal limits. Mitral valve annular calcifications are present. Coronary artery at herosclerosis. MEDIASTINUM: No gross evidence of adenopathy. VASCULATURE: No aortic aneurysm. Pulmonary trunk measures up to 3.4 cm. MUSCULOSKELETAL: No acute osseous abnormalities. SOFT TISSUES/LYMPH NODES: Unremarkable. LOWER NECK: No significant findings. ABDOMEN: ABDOMEN LIVER: Unremarkable GALLBLADDER AND BILE DUCTS: Gallbladder surgically absent. PANCREAS: Unremarkable. SPLEEN: Unremarkable. ADRENAL GLANDS: Heterogenous right adrenal nodule measuring up to 4.5 x 2.6 cm is not significantly d ifferent than prior 03/09/2022 dating back to 10/14/2017. KIDNEYS AND URETERS: No evidence of hydronephrosis or renal calculus. The ureters are unremarkable. PELVIS BLADDER: Decompressed REPRODUCTIVE: Redemonstration of surgically absent uterus with questionable communication to the sigm oid colon best appreciated on series 8 image 75. ABDOMEN & PELVIS STOMACH AND BOWEL: No evidence of bowel obstruction. Small hiatal hernia is present. Large stool rhianna en throughout the colon. Postsurgical changes to the bowel with colostomy noted in left lower abdomen . No evidence of parastomal hernia. PERITONEUM: No evidence of pneumoperitoneum or free fluid. VASCULATURE: No evidence of aortic aneurysm. MUSCULOSKELETAL: No acute osseous abnormalities, multilevel disc degeneration changes with grade 1 an terolisthesis of L4 and L5. L3 bone island and T12 compression deformity is stable. Deformities. Ther e is new and T9 vertebral body compression deformity LYMPH NODES: No gross evidence for lymphadenopathy. SOFT TISSUE/ABDOMINAL WALL: Postsurgical changes anterior abdominal wall without evidence of organizi ng fluid collection. IMPRESSION: 1. No evidence of lymphadenopathy to suggest metastatic disease. 2. New from 03/09/2022 compression deformity of the anterior T9 vertebral body. No significant spinal canal stenosis. 3. Redemonstration of soft tissue connection between sigmoid colon and suspected congenital wall. Th ere this may represent a fistula given findings on prior examination on 03/08/2022 showing oral contras t within the vagina. Correlate clinically. 4. Postsurgical changes to the bowel with colostomy in place. 5. Unchanged right adrenal mass dating back to at least 2018. 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 6. Large stool burden throughout the colon.
== END | disposition home or self-care (01) ==
LOC: RADCTMAIN 12:23
PROVIDERS: ATTEND Internal Medicine Hematology & Oncology
DX: C56.1 Malignant neoplasm of right ovary (principal); E27.9 Disorder of adrenal gland, unspecified; Z93.3 Colostomy status
CPT/HCPCS: 82565; 84520; 71260; 74177; 36415; Q9967

== ENCOUNTER 2022-11-07 07:19 | Inpatient (IN) | payer MEDICARE ==
[2022-10-26 15:18] VITALS: BMI 39.3
[~2022-11-07 07:19] MED LIST changes: -DEXAMETHASONE SOD PHOSPHATE 4 MG/ML 1 ML VIAL IV ONE; -HEPARIN SODIUM,PORCINE/PF 5,000 UNIT/0.5 ML SYRINGE SQ PRN; -HYDROmorphone 0.5 MG/0.5 ML SYRINGE IVP PRN; -LIDOCAINE 1% (10MG/ML) FOR IV START INTRADERMA PRN; -MIDAZOLAM 2 MG/2 ML VIAL IV PRN; -ONDANSETRON 4 MG/2 ML VIAL IVP ONE; +Pre Op ABX Message 1 EACH MISC MISCELLANE ONE; -metroNIDAZOLE-NS PMX 500 MG in SALINE 1 100ML.BAG IVPB PRN
[2022-11-07 08:25] LABS: Glucose,Whole Blood 170 mg/dL (70-110)
[2022-11-07] MEDS: LACTATED RINGERS 1,000 ML IV SCH ×2 (08:25→12:14)
[2022-11-07] MEDS ORDERED: ONDANSETRON 4 MG/2 ML VIAL ONE (08:26)
[2022-11-07] MEDS: HEPARIN SODIUM,PORCINE/PF 5,000 UNIT/0.5 ML SYRINGE SQ PRN ×2 (08:27→08:58)
[2022-11-07] MEDS ORDERED: ONDANSETRON 4 MG/2 ML VIAL IVP ONE (08:38)
[2022-11-07 08:53] LABS: Basophils % (A) 0 %; Eosinophils # (A) 0.2 k/uL (0-0.7); Eosinophils % (A) 2 %; HCT 42.5 % (34.0-46.0); HGB 13.5 gm/dL (11.4-16.0); Lymphocytes # (A) 1.2 k/uL (1.0-4.8); Lymphocytes % (A) 12 %; MCH 27.6 pg (25.0-35.0); MCHC 31.7 g/dL (31.0-37.0); MCV 86.9 fL (80.0-100.0); Mean Platelet Volume 8.2; Monocytes # (A) 0.6 k/uL (0-1.0); Monocytes % (A) 6 %; Neutrophils # (A) 7.5 k/uL (1.3-7.7); Neutrophils % (A) 77 %; Platelet Count 274 k/uL (150-450); RBC 4.89 m/uL (3.80-5.40); WBC 9.8 k/uL (3.8-10.6)
[2022-11-07 08:54] LABS: Albumin 3.6 g/dL (3.5-5.0); Potassium 4.6 mmol/L (3.5-5.1); Total Bilirubin 0.5 mg/dL (0.2-1.3); Total Protein 7.2 g/dL (6.3-8.2)
[2022-11-07] MEDS ORDERED: ACETAMINOPHEN TAB 325 MG TAB PO PRN (10:44)
[2022-11-07] MEDS ORDERED: ONDANSETRON 4 MG/2 ML VIAL IVP PRN (10:44)
[2022-11-07] MEDS ORDERED: NALOXONE 0.4 MG/ML 1 ML VIAL IV PRN (10:44)
[2022-11-07] MEDS ORDERED: LACTATED RINGERS 1,000 ML IV ONE (10:44)
[2022-11-07] MEDS ORDERED: HYDROmorphone 0.5 MG/0.5 ML SYRINGE IVP PRN (10:44)
--- NOTE | 2022-11-07 10:50 | P.GSHP ---
History of Present Illness H&P Date: 11/07/22 Chief Complaint: Chronic abdominal wall wound This a 69-year-old female with previous history of severe diverticulitis. Patient went. Exploratory laparotomy with colostomy. 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 The patient was seen in the office there is tunneling approximately 10 cm in length from the sinus. Patient presents today for abdominal wall debridement. Past Medical History Past Medical History: Asthma, Coronary Artery Disease (CAD), Cancer, Diabetes Mellitus, Hearing Disorder / Deafness, Hyperlipidemia, Hypertension, Neurologic Disorder, Osteoarthritis (OA), Pneumonia, Renal Disease, Thyroid Disorder Additional Past Medical History / Comment(s): Hx Pneumonia and Bronchitis. Hx right ovarian cancer had chemo - finished October 2017. 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 Has colostomy. Neuropathy in hands and feet. Hard of hearing. Diverticulosis. History of Any Multi-Drug Resistant Organisms: ESBL, MRSA Date of last positivie culture/infection: 08/31/22-MRSA; ESBL-05/26/19 MDRO Source:: Abdomen-MRSA; Urine-ESBL Past Surgical History: Appendectomy, Bowel Resection, Cholecystectomy, Hysterectomy, Joint Replacement, Orthopedic Surgery, Tonsillectomy Additional Past Surgical History / Comment(s): Exploratory laparotomy with ovari an tumor removal and lysis of adhesions, bilateral knee replacements, bilateral cataract removals, D&C/, calcium clot left eye, non functioning neurostimlator removed, glaucoma surgery, colonoscopy, colostomy 03/20/2022, trigger finger release. Past Anesthesia/Blood Transfusion Reactions: No Reported Reaction Additional Past Anesthesia/Blood Transfusion Reaction / Comment(s): Family hx unknown, patient was adopted. Past Psychological History: Bipolar, Depression Additional Psychological History / Comment(s): Patient lives alone in apt. with hercat named Pacheco. uses cane/walker at times. no home care services. Smoking Status: Former smoker Past Alcohol Use History: Rare Additional Past Alcohol Use History / Comment(s): Started smoking in 1959, quit for good in 1997, smoked 1-2 PPD. Past Drug Use History: None Reported - Past Family History Father History Unknown: Yes Family Medical History: Unable to Obtain Additional Family Medical History / Comment(s): Pt is adopted and does not know parents medical history. Medications and Allergies Home Medications Medication Instructions Recorded Confirmed Type Baclofen 10 mg PO QID PRN 01/06/16 11/07/22 History DULoxetine HCL [Cymbalta] 60 mg PO QAM 01/06/16 10/30/22 History Insulin NPH Hum/Reg Insulin Hm 10 - 14 unit SQ AC-BRKFST 03/17/16 10/30/22 History [NovoLIN 70-30 100 UNIT/ML VIAL] Insulin NPH Hum/Reg Insulin Hm 16 - 18 unit SQ AC-SUPPER 03/17/16 10/30/22 History [NovoLIN 70-30 100 UNIT/ML VIAL] Levothyroxine Sodium [Synthroid] 100 mcg PO QAM 07/25/17 10/30/22 History Aspirin EC [Ecotrin Low Dose] 81 mg PO DAILY 12/31/18 10/30/22 History Atorvastatin Calcium [Lipitor] 40 mg PO HS 12/31/18 11/07/22 History Ubidecarenone [Co Q-10] 200 mg PO DAILY 08/11/19 10/30/22 History Cholecalciferol [Vitamin D3 (25 50 mcg PO DAILY 03/07/22 10/30/22 History Mcg = 1000 Iu)] Cranberry Fruit Extract [Cranberry] 500 mg PO DAILY 03/07/22 10/30/22 History L.acidoph,Paracasei, B.lactis 1 cap PO BID 03/07/22 10/30/22 History [Probiotic] oxyCODONE HCL [oxyCODONE HCL (IR)] 10 mg PO Q6H PRN 3 Days #12 tab 03/23/22 10/30/22 Rx Alpha Lipoic Acid 600 mg PO DAILY 10/26/22 11/07/22 History Benzonatate [Tessalon Perles] 200 mg PO TID PRN 10/26/22 10/30/22 History Cefdinir 300 mg PO BID 10/26/22 11/07/22 History Docusate Sodium [Dok] 200 mg PO BID 10/26/22 11/07/22 History Dulaglutide [Trulicity] 4.5 mg SQ Q7D 10/26/22 11/07/22 History Furosemide [Lasix] 20 mg PO DAILY 10/26/22 10/30/22 History Metoprolol Tartrate [Lopressor] 12.5 mg PO BID 10/26/22 10/30/22 History Multivitamins, Thera [Multivitamin 1 tab PO DAILY 10/26/22 10/30/22 History (formulary)] Pioglitazone [Actos] 15 mg PO DAILY 10/26/22 11/07/22 History amLODIPine [Norvasc] 5 mg PO QAM 10/26/22 10/30/22 History metFORMIN HCL ER [Glucophage XR] 500 mg PO BID 10/26/22 10/30/22 History Mucinex (Unknown Dose) 1 dose PO BID 10/30/22 10/30/22 History Allergies Allergy/AdvReac Type Severity Reaction Status Date / Time adhesive Allergy blisters Verified 11/07/22 08:15 amoxicillin Allergy Rash/Hives Verified 11/07/22 08:15 ciprofloxacin [From Cipro] AdvReac Dyspnea Verified 11/07/22 08:15 ciprofloxacin HCl AdvReac Dyspnea Verified 11/07/22 08:15 [From Cipro] Surgical - Exam Vital Signs Temp Pulse Resp BP Pulse Ox 97.7 F 64 16 157/66 95 11/07/22 08:18 11/07/22 08:18 11/07/22 08:18 11/07/22 08:18 11/07/22 08:18 - General Morbidly obese, BMI 40 well developed, no distress - Eyes PERRL - ENT normal pinna - Neck no masses - Respiratory normal expansion - Cardiovascular Rhythm: regular - Abdomen Colostomy and left mid abdominal wall. Patient has a chronic wound at the lower portion of her midline scar. The wound has tunneling. There is intermittent drainage from the wound. Abdomen: soft, non tender Results - Labs 11/07/22 08:38 11/07/22 08:38 Abnormal Lab Results - Last 24 Hours (Table) 11/07/22 11/07/22 Range/Units 08:21 08:38 Sodium 136 L (137-145) mmol/L BUN 30 H (7-17) mg/dL Creatinine 1.12 H (0.52-1.04) mg/dL Glucose 176 H (74-99) mg/dL POC Glucose (mg/dL) 170 H (70-110) mg/dL Diabetes panel 11/07/22 Range/Units 08:38 Sodium 136 L (137-145) mmol/L Potassium 4.6 (3.5-5.1) mmol/L Chloride 104 (98-107) mmol/L Carbon Dioxide 23 (22-30) mmol/L BUN 30 H (7-17) mg/dL Creatinine 1.12 H (0.52-1.04) mg/dL Glucose 176 H (74-99) mg/dL Calcium 9.0 (8.4-10.2) mg/dL AST 18 (14-36) U/L ALT 16 (4-34) U/L Alkaline Phosphatase 123 (38-126) U/L Total Protein 7.2 (6.3-8.2) g/dL Albumin 3.6 (3.5-5.0) g/dL Calcium panel 11/07/22 Range/Units 08:38 Calcium 9.0 (8.4-10.2) mg/dL Albumin 3.6 (3.5-5.0) g/dL Pituitary panel 11/07/22 Range/Units 08:38 Sodium 136 L (137-145) mmol/L Potassium 4.6 (3.5-5.1) mmol/L Chloride 104 (98-107) mmol/L Carbon Dioxide 23 (22-30) mmol/L BUN 30 H (7-17) mg/dL Creatinine 1.12 H (0.52-1.04) mg/dL Glucose 176 H (74-99) mg/dL Calcium 9.0 (8.4-10.2) mg/dL Adrenal panel 11/07/22 Range/Units 08:38 Sodium 136 L (137-145) mmol/L Potassium 4.6 (3.5-5.1) mmol/L Chloride 104 (98-107) mmol/L Carbon Dioxide 23 (22-30) mmol/L BUN 30 H (7-17) mg/dL Creatinine 1.12 H (0.52-1.04) mg/dL Glucose 176 H (74-99) mg/dL Calcium 9.0 (8.4-10.2) mg/dL Total Bilirubin 0.5 (0.2-1.3) mg/dL AST 18 (14-36) U/L ALT 16 (4-34) U/L Alkaline Phosphatase 123 (38-126) U/L Total Protein 7.2 (6.3-8.2) g/dL Albumin 3.6 (3.5-5.0) g/dL Assessment and Plan Assessment: Chronic abdominal wall wound. Patient will undergo debridement.
--- NOTE | 2022-11-07 10:52 | P.OP ---
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 Closure of small bowel fistula Anesthesia: MARYCARMEN Surgeon: Parviz Harrison Estimated Blood Loss (ml): 20 Pathology: other (Abdominal wall) Condition: stable Disposition: PACU Description of Procedure: The patient's placed on the operative table in the supine position. She received general endotracheal tube anesthesia. Her abdomen was prepped and draped usual sterile fashion. Patient a previous midline incision. The inferior portion of her midline scar was a chronic draining wound. The wound was probed with a hemostat. Using electrocautery the tract was opened. There was chronic granulation tissue in the tract. This was excised using left cautery. The tract was followed down and at the base of the tract there was small bowel fistula noted. There is some bilious fluid seen. At this point the fascia was opened slightly. In the small bowel was visualized. The patient had a. History of severe diverticulitis with a frozen pelvis. Due to this it was decided not perform an exploratory laparotomy. The small bowel was suture repaired with 3-0 silk suture. There appeared to be no evidence of any leakage of small bowel content. At this point the fascia was then reapproximated over top of the repair using 0 Vicryl suture. The wound was then packed with wet-to-dry Kerlix. Patient top she will she was sent to recovery room stable condition.
[2022-11-07] MEDS: KETOROLAC 15 MG/ML 1 ML VIAL IVP SCH ×3 (12:20→23:04)
[2022-11-07] MEDS ORDERED: BENZONATATE 100 MG CAP PO PRN (12:30)
[2022-11-07] MEDS ORDERED: DEXTROSE 50% SYRINGE 50 ML IVP PRN ×2 (13:07)
[2022-11-07 16:41] LABS: Glucose,Whole Blood 119 mg/dL (70-110)
[2022-11-07] MEDS: INSULIN ASPART (NovoLOG) 100 UNIT/ML VIAL SQ SCH ×2 (16:55→21:29)
[2022-11-07 20:13] LABS: Glucose,Whole Blood 112 mg/dL (70-110)
[2022-11-07] MEDS: INSULIN DETEMIR (LEVEMIR) 100 UNIT/ML SYR SQ SCH (21:29)
[2022-11-07] MEDS: ATORVASTATIN 40 MG TAB PO SCH (21:34)
[2022-11-07] MEDS: METOPROLOL TARTRATE 12.5 MG TAB PO SCH (21:34)
--- NOTE | 2022-11-07 23:26 | CONS ---
CONSULTATION REASON FOR CONSULTATION: Advice regarding diabetes mellitus and other medical issues requested by Surgery. HISTORY OF PRESENT ILLNESS: This is a 77-year-old woman with a past medical history of multiple medical problems including asthma, CAD, and diabetes mellitus, underwent abdominal wall wound closure which is secondary to fistula. There is no history of any fever or rigors. No history of headache, loss of consciousness, or seizures, PAST MEDICAL HISTORY: Reviewed includes diabetes mellitus, hypertension, and hyperlipidemia. Rest of the history and rest of the chart are also reviewed. HOME MEDICATIONS: Reviewed include Actos. Doses and rest of the medications are noted. ALLERGIES: Adhesives. FAMILY HISTORY: The patient is adopted. SOCIAL HISTORY: Previous history of smoking. REVIEW OF SYSTEMS: Fourteen-point review is negative except as mentioned earlier. PHYSICAL EXAMINATION: VITAL SIGNS: Pulse 58, blood pressure 120/68. HEENT: Conjunctivae are normal. NECK: No jugular venous distention. CARDIOVASCULAR: S1 and S2 muffled. RESPIRATORY: Clear to auscultation. ABDOMEN: Soft. Status post surgery. LEGS: No edema. NERVOUS SYSTEM: Nonfocal. LABORATORY DATA: Reviewed. ASSESSMENT: 1. Status post abdominal wall wound closure secondary to fistula. 2. Diabetes mellitus, type 2. 3. Hypertension. 4. Hyperlipidemia. 5. Multiple medical issues. RECOMMENDATIONS AND DISCUSSION: This is a 77-year-old woman presented with multiple complex medical issues. At this time, I recommend to continue current medications. Continue symptomatic treatment. Otherwise, I recommend to resume the home medications and monitor blood sugars closely. Otherwise, DVT prophylaxis. See orders for details. We will follow the patient closely. MMODL / IJN: [id number] /
[2022-11-08] MEDS: LEVOTHYROXINE 100 MCG TAB PO SCH (05:17)
[2022-11-08] MEDS: KETOROLAC 15 MG/ML 1 ML VIAL IVP SCH ×2 (05:17→12:08)
[2022-11-08 05:46] LABS: Glucose,Whole Blood 168 mg/dL (70-110)
[2022-11-08] MEDS: INSULIN ASPART (NovoLOG) 100 UNIT/ML VIAL SQ SCH ×4 (05:55→20:33)
[2022-11-08] MEDS: PIOGLITAZONE 15 MG TAB PO SCH (08:54)
[2022-11-08] MEDS: METOPROLOL TARTRATE 12.5 MG TAB PO SCH ×2 (08:57→20:43)
[2022-11-08] MEDS: CHOLECALCIFEROL 25 MCG (1000 IU) TABLET PO SCH (08:57)
[2022-11-08] MEDS: ENOXAPARIN 40 MG/0.4 ML SYRINGE SQ SCH (08:57)
[2022-11-08] MEDS: HYDROcodone/APAP 5-325MG 1 EACH TAB PO PRN ×3 (08:57→22:25)
[2022-11-08] MEDS: MULTIVITAMINS, THERA 1 EACH TAB PO SCH (08:58)
[2022-11-08] MEDS: DULoxetine HCL 60 MG CAPSULE.DR PO SCH (08:58)
[2022-11-08] MEDS: amLODIPine 5 MG TAB PO SCH (08:58)
[2022-11-08] MEDS ORDERED: NON FORMULARY DRUG (Ubidecarenone [Co Q-10] 100 MG Capsule) PO SCH (09:00)
[2022-11-08] MEDS ORDERED: NON FORMULARY DRUG (Alpha Lipoic Acid [Alpha Lipoic Acid] 600 MG Tablet) PO SCH (09:00)
[2022-11-08 09:25] LABS: African American GFR (CKD) 45.5 (60.0-200.0); Albumin 3.2 g/dL (3.8-4.9); Albumin/Globulin Ratio 1.14 (1.60-3.17); Anion Gap 7.7 mmol/L (10.00-18.00); BUN/Creat Ratio 21.92 Ratio (12.00-20.00); Blood Urea Nitrogen 28.5 mg/dL (9.0-27.0); Carbon Dioxide 24.3 mmol/L (20.0-27.5); Globulin 2.8 g/dL (1.6-3.3); Magnesium 2.2 mg/dL (1.5-2.4); Non-African American GFR(CKD) 39.3 (60.0-200.0); Phosphorus 4.3 mg/dL (2.4-5.1); Potassium 5.4 mmol/L (3.5-5.5); Total Bilirubin 0.4 mg/dL (0.30-1.20)
[2022-11-08] MEDS: LACTATED RINGERS 1,000 ML IV SCH ×2 (11:10→21:39)
[2022-11-08 11:40] LABS: Basophils # (A) 0.04 X 10*3/uL (0.00-0.10); Basophils % (A) 0.4 %; Eosinophils # (A) 0.23 X 10*3/uL (0.04-0.35); Eosinophils % (A) 2.3 %; HGB 12.8 g/dL (12.0-15.0); Immature Grans, Automated 0.4 %; Lymphocytes # (A) 1.07 X 10*3/uL (0.90-5.00); Lymphocytes % (A) 10.6 %; MCH 27.9 pg (27.0-32.0); MCHC 30.5 g/dL (32.0-37.0); MCV 91.7 fL (80.0-97.0); Monocytes # (A) 1.04 X 10*3/uL (0.20-1.00); Monocytes % (A) 10.3 %; NRBC Per 100 WBC 0 /100 WBCS (0.0-0.0); Neutrophils # (A) 7.64 X 10*3/uL (1.80-7.70); Platelet Count 273 X 10*3/uL (140-440); RBC 4.58 X 10*6/uL (4.10-5.20); RDW 14.2 % (11.5-14.5); WBC 10.06 X 10*3/uL (4.50-10.00)
[2022-11-08 12:01] LABS: Glucose,Whole Blood 155 mg/dL (70-110)
--- NOTE | 2022-11-08 12:03 | P.NPCON ---
History of Present Illness - Reason for Consult chronic renal failure - History of Present Illness Patient is a 77-year-old female with history of coronary artery disease, type 2 diabetes and chronic abdominal wall wound with previous history of colostomy. Patient also has underlying CK D with fluctuating renal function due to episodes of acute kidney injury. Serum creatinine has been ranging between 0.9-1.1 mg/dL mostly. Today it was 1.3. Patient needs PICC line for TPN and therefore nephrology has been consulted as GFR was 39. No significant hypotension noted Patient has been voiding. Toradol noted on med list Review of Systems As per HPI Past Medical History Past Medical History: Asthma, Coronary Artery Disease (CAD), Cancer, Diabetes Mellitus, Hearing Disorder / Deafness, Hyperlipidemia, Hypertension, Neurologic Disorder, Osteoarthritis (OA), Pneumonia, Renal Disease, Thyroid Disorder Additional Past Medical History / Comment(s): Hx Pneumonia and Bronchitis. Hx right ovarian cancer had chemo - finished October 2017. 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 Has colostomy. Neuropathy in hands and feet. Hard of hearing. Diverticulosis. History of Any Multi-Drug Resistant Organisms: ESBL, MRSA Date of last positivie culture/infection: 08/31/22-MRSA; ESBL-05/26/19 MDRO Source:: Abdomen-MRSA; Urine-ESBL Past Surgical History: Appendectomy, Bowel Resection, Cholecystectomy, Hysterectomy, Joint Replacement, Orthopedic Surgery, Tonsillectomy Additional Past Surgical History / Comment(s): Exploratory laparotomy with ovarian tumor removal and lysis of adhesions, bilateral knee replacements, bilateral cataract removals, D&C/, calcium clot left eye, non fu nctioning neurostimlator removed, glaucoma surgery, colonoscopy, colostomy 03/20/2022, trigger finger release. Past Anesthesia/Blood Transfusion Reactions: No Reported Reaction Additional Past Anesthesia/Blood Transfusion Reaction / Comment(s): Family hx unknown, patient was adopted. Past Psychological History: Bipolar, Depression Additional Psychological History / Comment(s): Patient lives alone in apt. with hercat named Pacheco. uses cane/walker at times. no home care services. Smoking Status: Former smoker Past Alcohol Use History: Rare Additional Past Alcohol Use History / Comment(s): Started smoking in 1959, quit for good in 1997, smoked 1-2 PPD. Past Drug Use History: None Reported - Past Family History Father History Unknown: Yes Family Medical History: Unable to Obtain Additional Family Medical History / Comment(s): Pt is adopted and does not know parents medical history. Medications and Allergies Home Medications Medication Instructions Recorded Confirmed Type Baclofen 10 mg PO QID PRN 01/06/16 11/07/22 History DULoxetine HCL [Cymbalta] 60 mg PO QAM 01/06/16 10/30/22 History Insulin NPH Hum/Reg Insulin Hm 10 - 14 unit SQ AC-BRKFST 03/17/16 10/30/22 History [NovoLIN 70-30 100 UNIT/ML VIAL] Insulin NPH Hum/Reg Insulin Hm 16 - 18 unit SQ AC-SUPPER 03/17/16 10/30/22 History [NovoLIN 70-30 100 UNIT/ML VIAL] Levothyroxine Sodium [Synthroid] 100 mcg PO QAM 07/25/17 10/30/22 History Aspirin EC [Ecotrin Low Dose] 81 mg PO DAILY 12/31/18 10/30/22 History Atorvastatin Calcium [Lipitor] 40 mg PO HS 12/31/18 11/07/22 History Ubidecarenone [Co Q-10] 200 mg PO DAILY 08/11/19 10/30/22 History Cholecalciferol [Vitamin D3 (25 50 mcg PO DAILY 03/07/22 10/30/22 History Mcg = 1000 Iu)] Cranberry Fruit Extract [Cranberry] 500 mg PO DAILY 03/07/22 10/30/22 History L.acidoph,Paracasei, B.lactis 1 cap PO BID 03/07/22 10/30/22 History [Probiotic] oxyCODONE HCL [oxyCODONE HCL (IR)] 10 mg PO Q6H PRN 3 Days #12 tab 03/23/22 10/30/22 Rx Alpha Lipoic Acid 600 mg PO DAILY 10/26/22 11/07/22 History Benzonatate [Tessalon Perles] 200 mg PO TID PRN 10/26/22 10/30/22 History Cefdinir 300 mg PO BID 10/26/22 11/07/22 History Docusate Sodium [Dok] 200 mg PO BID 10/26/22 11/07/22 History Dulaglutide [Trulicity] 4.5 mg SQ Q7D 10/26/22 11/07/22 History Furosemide [Lasix] 20 mg PO DAILY 10/26/22 10/30/22 History Metoprolol Tartrate [Lopressor] 12.5 mg PO BID 10/26/22 10/30/22 History Multivitamins, Thera [Multivitamin 1 tab PO DAILY 10/26/22 10/30/22 History (formulary)] Pioglitazone [Actos] 15 mg PO DAILY 10/26/22 11/07/22 History amLODIPine [Norvasc] 5 mg PO QAM 10/26/22 10/30/22 History metFORMIN HCL ER [Glucophage XR] 500 mg PO BID 10/26/22 10/30/22 History Mucinex (Unknown Dose) 1 dose PO BID 10/30/22 10/30/22 History Allergies Allergy/AdvReac Type Severity Reaction Status Date / Time adhesive Allergy blisters Verified 11/07/22 08:15 amoxicillin Allergy Rash/Hives Verified 11/07/22 08:15 ciprofloxacin [From Cipro] AdvReac Dyspnea Verified 11/07/22 08:15 ciprofloxacin HCl AdvReac Dyspnea Verified 11/07/22 08:15 [From Cipro] Physical Exam Vitals: Vital Signs Temp Pulse Pulse Pulse Resp BP Pulse Ox 11/08/22 09:08 72 135/73 11/08/22 08:57 18 11/08/22 07:04 97.8 F 71 19 115/65 98 11/08/22 00:38 96 11/08/22 00:35 98.3 F 73 16 142/72 89 L 11/07/22 19:06 98.6 F 72 16 123/72 94 L 11/07/22 14:04 61 159/74 94 L 11/07/22 13:49 58 L 150/68 94 L 11/07/22 13:34 69 121/65 95 11/07/22 13:19 69 152/66 95 11/07/22 13:04 65 144/66 96 11/07/22 12:50 65 106/52 96 11/07/22 12:35 73 93/46 95 11/07/22 12:20 62 114/55 96 11/07/22 12:04 97.1 F L 67 18 131/71 92 L Intake and Output 11/07/22 11/08/22 11/08/22 22:59 06:59 14:59 Intake Total 0 Balance 0 Intake: Oral 0 Other: Voiding Method Diaper Diaper # Voids 1 2 # Bowel Movements 1 Patient is comfortable awake alert oriented 3. Examination of the heart S1 and S2 Examination of the lungs bilateral breath sounds are heard Abdomen is soft nontender, incision is dressed. Colostomy noted. Examination lower extremities shows no evidence of edema Results - Lab Results Most recent lab results Calcium 9.0 mg/dL (8.7-10.3) 11/08/22 05:39 Phosphorus 4.3 mg/dL (2.4-5.1) 11/08/22 05:39 Magnesium 2.2 mg/dL (1.5-2.4) 11/08/22 05:39 11/08/22 05:39 11/08/22 05:39 Assessment and Plan Assessment: 1. Acute kidney injury secondary to NSAIDs 2. Chronic kidney disease NKF stage IIIa with serum creatinine fluctuating between 0.9-1.1 mg/dL. Etiology is nephrosclerosis 3. 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 Hypertension with CK D Plan: DC Toradol Repeat labs in a.m. Okay to proceed with PICC line preferably right arm. Next Thank you for the consultation. We will continue to follow the patient with you during her hospitalization.
--- NOTE | 2022-11-08 13:11 | PN ---
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 A PICC line is being planned. OBJECTIVE: VITAL SIGNS: Pulse is 71, blood pressure 158/62, and respirations 19. CHEST: Clear to auscultation. CARDIOVASCULAR: S1, S2 muffled. ABDOMEN: Soft. NERVOUS SYSTEM: No focal deficits. LABORATORY DATA: Reviewed. ASSESSMENT: 1. 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 2. Diabetes mellitus, type 2. 3. Hypertension. 4. Hyperlipidemia. 5. Multiple medical issues. RECOMMENDATIONS AND DISCUSSION: Recommended to continue current medications, continue symptomatic treatment, PICC line. Repeat labs and continue to monitor. Nephrology cleared the patient for PICC line insertion. Further recommendations to follow. MMODL / IJN: [id number] /
--- NOTE | 2022-11-08 14:08 | P.PN ---
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 Patient has a known history of severe diverticulitis with frozen pelvis. PICC line ordered for TPN. Due to patient's elevated GFR patient had to be seen by nephrology before PICC line could be placed. Nephrology has given the okay to proceed with PICC line placement and they have discontinued the Toradol due to renal function. Afebrile. WBC 10.06 Hgb 12.8 platelets 273 sodium is 135 potassium is 5.4 creatinine 1.3 patient reports her pain is controlled. Her ostomy is functioning PHYSICAL EXAM: VITAL SIGNS: Reviewed. GENERAL: Well-developed in no acute distress. HEENT: No sclera icterus. Extraocular movements grossly intact. Moist buccal mucosa. Head is atraumatic, normocephalic. ABDOMEN: Soft. Nondistended. Abdominal wound with serosanguineous drainage on dressing. Colostomy with evidence of stool. NEUROLOGIC: Alert and oriented. Cranial nerves II through XII grossly intact. ASSESSMENT: 1. 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 History of severe diverticulitis and frozen pelvis 3. Diabetes PLAN: -Patient scheduled for PICC line placement and start TPN for nutrition support -Resume IV fluids at 125 mL per hour -Keep patient nothing by mouth except for medications -Continue pain management -Continue wet-to-dry daily dressings to abdominal wound -DVT prophylaxis Lovenox and GI prophylaxis Pepcid Physician Nurse Healthcare Manager note has been reviewed by physician. Signing provider agrees with the documented findings, assessment, and plan of care. Objective - Vital Signs Vital signs: Vital Signs Temp 97.8 F 11/08/22 07:04 Pulse 72 11/08/22 09:08 Resp 18 11/08/22 08:57 BP 135/73 11/08/22 09:08 Pulse Ox 98 11/08/22 07:04 FiO2 Intake & Output 11/07/22 11/08/22 11/08/22 18:59 06:59 18:59 Intake Total 1050 Output Total 5 Balance 1045 Weight 100.8 kg Intake: IV 1050 Oral 0 Output: Estimated Blood Loss 5 Other: Voiding Method Diaper Diaper Diaper # Voids 2 2 # Bowel Movements 1 - Labs CBC & Chem 7: 11/08/22 05:39 11/08/22 05:39 Labs: Abnormal Lab Results - Last 24 Hours (Table) 11/07/22 11/07/22 11/08/22 Range/Units 16:39 20:09 05:39 WBC 10.06 H (4.50-10.00) X 10*3/uL MCHC 30.5 L (32.0-37.0) g/dL Monocytes # 1.04 H (0.20-1.00) X 10*3/uL Anion Gap (10.00-18.00) mmol/L BUN (9.0-27.0) mg/dL Est GFR (CKD-EPI)AfAm (60.0-200.0) Est GFR (CKD-EPI)NonAf (60.0-200.0) BUN/Creatinine Ratio (12.00-20.00) Ratio Glucose (70-110) mg/dL POC Glucose (mg/dL) 119 H 112 H (70-110) mg/dL Total Protein (6.2-8.2) g/dL Albumin (3.8-4.9) g/dL Albumin/Globulin Ratio (1.60-3.17) g/dL 11/08/22 11/08/22 11/08/22 Range/Units 05:39 05:45 12:00 WBC (4.50-10.00) X 10*3/uL MCHC (32.0-37.0) g/dL Monocytes # (0.20-1.00) X 10*3/uL Anion Gap 7.70 L (10.00-18.00) mmol/L BUN 28.5 H (9.0-27.0) mg/dL Est GFR (CKD-EPI)AfAm 45.5 L (60.0-200.0) Est GFR (CKD-EPI)NonAf 39.3 L (60.0-200.0) BUN/Creatinine Ratio 21.92 H (12.00-20.00) Ratio Glucose 156 H (70-110) mg/dL POC Glucose (mg/dL) 168 H 155 H (70-110) mg/dL Total Protein 6.0 L (6.2-8.2) g/dL Albumin 3.2 L (3.8-4.9) g/dL Albumin/Globulin Ratio 1.14 L (1.60-3.17) g/dL
[2022-11-08 17:13] LABS: Glucose,Whole Blood 144 mg/dL (70-110)
[2022-11-08] MEDS: INSULIN DETEMIR (LEVEMIR) 100 UNIT/ML SYR SQ SCH (19:46)
[2022-11-08 20:31] LABS: Glucose,Whole Blood 133 mg/dL (70-110)
[2022-11-08] MEDS: ATORVASTATIN 40 MG TAB PO SCH (20:43)
[2022-11-08] MEDS: FAMOTIDINE 20 MG TAB PO SCH (20:43)
[2022-11-08] MEDS: BACLOFEN 10 MG TAB PO PRN (22:22)
[2022-11-09] MEDS: HYDROcodone/APAP 5-325MG 1 EACH TAB PO PRN ×2 (04:15→21:35)
[2022-11-09] MEDS: LEVOTHYROXINE 100 MCG TAB PO SCH (05:35)
[2022-11-09] MEDS: LACTATED RINGERS 1,000 ML IV SCH ×2 (05:36→16:27)
[2022-11-09 05:42] LABS: Glucose,Whole Blood 140 mg/dL (70-110)
[2022-11-09] MEDS: INSULIN ASPART (NovoLOG) 100 UNIT/ML VIAL SQ SCH ×4 (05:43→21:37)
[2022-11-09 05:54] LABS: African American GFR (CKD) 69 (>60 ml/min/1.73 sqM); Anion Gap 7 mmol/L; Blood Urea Nitrogen 23 mg/dL (7-17); Calcium 8.4 mg/dL (8.4-10.2); Carbon Dioxide 26 mmol/L (22-30); Chloride 102 mmol/L (98-107); Glucose 141 mg/dL (74-99); Magnesium 1.8 mg/dL (1.6-2.3); Non-African American GFR(CKD) 60 (>60 ml/min/1.73 sqM); Phosphorus 3.3 mg/dL (2.5-4.5); Potassium 4.4 mmol/L (3.5-5.1); Sodium 135 mmol/L (137-145)
[2022-11-09] MEDS ORDERED: LIDOCAINE 1% INJ 10MG/ML (5 ML VIAL-PF) SQ ONE (08:55)
[2022-11-09] MEDS: METOPROLOL TARTRATE 12.5 MG TAB PO SCH ×2 (09:44→21:35)
[2022-11-09] MEDS: DULoxetine HCL 60 MG CAPSULE.DR PO SCH (09:44)
[2022-11-09] MEDS: ENOXAPARIN 40 MG/0.4 ML SYRINGE SQ SCH (09:44)
[2022-11-09] MEDS: CHOLECALCIFEROL 25 MCG (1000 IU) TABLET PO SCH (09:44)
[2022-11-09] MEDS: PIOGLITAZONE 15 MG TAB PO SCH (09:44)
[2022-11-09] MEDS: amLODIPine 5 MG TAB PO SCH (09:44)
[2022-11-09] MEDS: MULTIVITAMINS, THERA 1 EACH TAB PO SCH (09:44)
--- NOTE | 2022-11-09 10:19 | IR ---
PICC LINE PLACEMENT: HISTORY: Infection requiring long-term antibiotic therapy PROCEDURE: Ultrasound and fluoroscopic guidance of PICC line placement. COMPLICATIONS: None ANESTHESIA: 1. 1% Lidocaine locally. FINDINGS/TECHNIQUE: The procedure was explained to the patient. The risks, complications, benefits and alternatives were discussed and any questions were answered. Informed consent was obtained. The patient was placed supine on the fluoroscopic table and prepped and draped in the usual sterile fash ion. Utilizing a 21 gauge needle and sonographic and fluoroscopic guidance, access in the left basi lic vein was achieved and there is placement of a 0.018 guidewire. The vein is patent. A 4-F sheath was placed over the guidewire. The guidewire and dilator were removed and a 4-F. PICC line was plac ed through the sheath with the tip at the level of the SVC. The sheath was removed, the catheter was flushed and sutured into position. The patient was stable throughout the procedure and remained sta ble upon discharge from the Department of Radiology. The vein puncture was patent under ultrasound. A henley scale image was obtained to document patency of the vein punctured. All elements of the maximal barrier technique were utilized. FLUOROSCOPY TIME: DAP 0.4496Gy cm2 IMPRESSION: Successful PICC line placement under ultrasound and fluoroscopic guidance.
[2022-11-09 11:28] LABS: Glucose,Whole Blood 172 mg/dL (70-110)
--- NOTE | 2022-11-09 11:55 | P.PN ---
Subjective Patient is seen for follow-up for acute kidney injury. Renal function has improved. Patient was on Toradol which was discontinued yesterday. Maintained on IV fluids Objective - Vital Signs Vital signs: Vital Signs Temp 98.5 F 11/09/22 06:54 Pulse 83 11/09/22 06:54 Resp 16 11/09/22 08:00 BP 183/71 11/09/22 06:54 Pulse Ox 93 L 11/09/22 06:54 FiO2 Intake & Output 11/08/22 11/09/22 11/09/22 18:59 06:59 18:59 Other: Voiding Method Diaper Toilet Toilet # Voids 1 1 # Bowel Movements 1 - Exam Patient is comfortable awake alert oriented 3. Examination of the heart S1 and S2 Examination of the lungs bilateral breath sounds are heard Abdomen is soft nontender, incision is dressed. Colostomy noted. Examination lower extremities shows no evidence of edema NOTCH GRINDER exam grossly intact - Labs CBC & Chem 7: 11/08/22 05:39 11/09/22 05:11 Labs: Abnormal Lab Results - Last 24 Hours (Table) 11/08/22 11/08/22 11/08/22 Range/Units 12:00 17:11 20:24 Sodium (137-145) mmol/L BUN (7-17) mg/dL Glucose (74-99) mg/dL POC Glucose (mg/dL) 155 H 144 H 133 H (70-110) mg/dL 11/09/22 11/09/22 11/09/22 Range/Units 05:11 05:38 11:27 Sodium 135 L (137-145) mmol/L BUN 23 H (7-17) mg/dL Glucose 141 H (74-99) mg/dL POC Glucose (mg/dL) 140 H 172 H (70-110) mg/dL Assessment and Plan Assessment: 1. Acute kidney injury secondary to NSAIDs 2. Chronic kidney disease NKF stage IIIa with serum creatinine fluctuating between 0.9-1.1 mg/dL. Etiology is nephrosclerosis 3. 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 Hypertension with CK D Plan: Continue off of NSAIDs Decrease IV fluids Monitor electrolytes.
[2022-11-09] MEDS ORDERED: MVI, ADULT NO.4 WITH VIT K 10 ML, TRACE (CONC-1ML/DOSE) 1 ML in AMINO ACID 5%-D20W+LYTE... IV SCH ×3 (12:00)
--- NOTE | 2022-11-09 13:01 | P.PN ---
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 Patient has a known history of severe diverticulitis with frozen pelvis. Patient did get the PICC l ine. She is scheduled to start TPN today for nutrition support. She reports her pain is controlled. Complaining more of back pain which is chronic for her. She denies any nausea vomiting. Ostomy continues to function. Afebrile. BP elevated 183/71. Sodium is 135 potassium 4.4 creatinine 0.93 magnesium 1.8. IV fluids currently decreased at 70 mL per hour per nephrology PHYSICAL EXAM: VITAL SIGNS: Reviewed. GENERAL: Well-developed in no acute distress. HEENT: No sclera icterus. Extraocular movements grossly intact. Moist buccal mucosa. Head is atraumatic, normocephalic. ABDOMEN: Soft. Nondistended. Abdominal wound with serosanguineous and yellowish drainage on dressing. Colostomy with evidence of stool. NEUROLOGIC: Alert and oriented. Cranial nerves II through XII grossly intact. ASSESSMENT: 1. 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 History of severe diverticulitis and frozen pelvis 3. Diabetes PLAN: -Start TPN per dietitian recommendations -IV fluids decreased by nephrology -Keep patient nothing by mouth except for medications -Continue pain management -Continue wet-to-dry daily dressings to abdominal wound -DVT prophylaxis Lovenox and GI prophylaxis Pepcid Physician Fabric Worker Foreman note has been reviewed by physician. Signing provider agrees with the documented findings, assessment, and plan of care. Objective - Vital Signs Vital signs: Vital Signs Temp 98.5 F 11/09/22 06:54 Pulse 83 11/09/22 06:54 Resp 16 11/09/22 08:00 BP 183/71 11/09/22 06:54 Pulse Ox 93 L 11/09/22 06:54 FiO2 Intake & Output 11/08/22 11/09/22 11/09/22 18:59 06:59 18:59 Weight 100.8 kg Other: Voiding Method Diaper Toilet Toilet # Voids 1 1 # Bowel Movements 1 - Labs CBC & Chem 7: 11/08/22 05:39 11/09/22 05:11 Labs: Abnormal Lab Results - Last 24 Hours (Table) 11/08/22 11/08/22 11/09/22 Range/Units 17:11 20:24 05:11 Sodium 135 L (137-145) mmol/L BUN 23 H (7-17) mg/dL Glucose 141 H (74-99) mg/dL POC Glucose (mg/dL) 144 H 133 H (70-110) mg/dL 11/09/22 11/09/22 Range/Units 05:38 11:27 Sodium (137-145) mmol/L BUN (7-17) mg/dL Glucose (74-99) mg/dL POC Glucose (mg/dL) 140 H 172 H (70-110) mg/dL
[2022-11-09] MEDS: FAT EMULSION 20% 250 ML in EMPTY BAG 1 BAG IV SCH (13:11)
--- NOTE | 2022-11-09 13:21 | PN ---
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 The patient is planned to have TPN by surgery. OBJECTIVE: VITAL SIGNS: Pulse is 67, blood pressure 150/70, respirations 18. CHEST: Clear to auscultation. CARDIOVASCULAR: S1, S2. ABDOMEN: Soft status post surgery. LABORATORY DATA: Reviewed. ASSESSMENT: 1. 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 2. Diabetes mellitus type 2. 3. Hypertension. 4. Hyperlipidemia. 5. On TPN. RECOMMENDATIONS AND DISCUSSION: Recommended to continue current medications, continue symptomatic treatment. Repeat labs. Closely follow with surgery. Further recommendations to follow. MMODL / IJN: [id number] /
[2022-11-09] MEDS: BACLOFEN 10 MG TAB PO PRN (16:28)
[2022-11-09 16:45] LABS: Glucose,Whole Blood 176 mg/dL (70-110)
[2022-11-09 20:48] LABS: Glucose,Whole Blood 143 mg/dL (70-110)
[2022-11-09] MEDS: INSULIN DETEMIR (LEVEMIR) 100 UNIT/ML SYR SQ SCH (21:35)
[2022-11-09] MEDS: ATORVASTATIN 40 MG TAB PO SCH (21:35)
[2022-11-09] MEDS: FAMOTIDINE 20 MG TAB PO SCH (21:35)
[2022-11-10] MEDS: LACTATED RINGERS 1,000 ML IV SCH ×2 (05:05→21:15)
[2022-11-10] MEDS: HYDROcodone/APAP 5-325MG 1 EACH TAB PO PRN (05:05)
[2022-11-10] MEDS: LEVOTHYROXINE 100 MCG TAB PO SCH (05:06)
[2022-11-10 06:07] LABS: Glucose,Whole Blood 187 mg/dL (70-110)
[2022-11-10] MEDS: INSULIN ASPART (NovoLOG) 100 UNIT/ML VIAL SQ SCH ×4 (06:45→22:11)
[2022-11-10 08:32] LABS: African American GFR (CKD) 84 (>60 ml/min/1.73 sqM); Anion Gap 5 mmol/L; Blood Urea Nitrogen 16 mg/dL (7-17); Calcium 8.5 mg/dL (8.4-10.2); Carbon Dioxide 29 mmol/L (22-30); Chloride 102 mmol/L (98-107); Glucose 182 mg/dL (74-99); Magnesium 1.8 mg/dL (1.6-2.3); Non-African American GFR(CKD) 73 (>60 ml/min/1.73 sqM); Phosphorus 2.6 mg/dL (2.5-4.5); Potassium 3.9 mmol/L (3.5-5.1); Sodium 136 mmol/L (137-145)
[2022-11-10] MEDS: MULTIVITAMINS, THERA 1 EACH TAB PO SCH (10:00)
[2022-11-10] MEDS: DULoxetine HCL 60 MG CAPSULE.DR PO SCH (10:00)
[2022-11-10] MEDS: amLODIPine 5 MG TAB PO SCH (10:00)
[2022-11-10] MEDS: METOPROLOL TARTRATE 12.5 MG TAB PO SCH ×2 (10:00→20:20)
[2022-11-10] MEDS: CHOLECALCIFEROL 25 MCG (1000 IU) TABLET PO SCH (10:00)
[2022-11-10] MEDS: ENOXAPARIN 40 MG/0.4 ML SYRINGE SQ SCH (10:00)
[2022-11-10] MEDS: PIOGLITAZONE 15 MG TAB PO SCH (10:00)
[2022-11-10 11:12] LABS: Basophils # (A) 0.02 X 10*3/uL (0.00-0.10); Basophils % (A) 0.2 %; Eosinophils # (A) 0.35 X 10*3/uL (0.04-0.35); Eosinophils % (A) 2.8 %; HCT 40.1 % (37.2-46.3); HGB 12.5 g/dL (12.0-15.0); Immature Grans, Automated 0.4 %; Lymphocytes # (A) 0.92 X 10*3/uL (0.90-5.00); Lymphocytes % (A) 7.3 %; MCH 27.5 pg (27.0-32.0); MCHC 31.2 g/dL (32.0-37.0); MCV 88.3 fL (80.0-97.0); Mean Platelet Volume 10.9 fL (9.5-12.2); Monocytes # (A) 1.26 X 10*3/uL (0.20-1.00); Monocytes % (A) 10.1 %; NRBC Per 100 WBC 0 /100 WBCS (0.0-0.0); Neutrophils # (A) 9.93 X 10*3/uL (1.80-7.70); Neutrophils % (A) 79.2 %; Platelet Count 256 X 10*3/uL (140-440); RBC 4.54 X 10*6/uL (4.10-5.20); RDW 13.8 % (11.5-14.5); WBC 12.53 X 10*3/uL (4.50-10.00)
--- NOTE | 2022-11-10 13:57 | P.PN ---
Progress Note - Text Progress Note Date: 11/10/22 the patient remained stable. She has minimal complaints of abdominal pain. She has had no significant drainage from her wound. There has been no small bowel contents in the wound. On exam vitals remained stable. Abdomen is soft. The wound dressing was taken down. There is no evidence of any bile staining of the dressing. There is no enteric contents in the wound. Status post exploration of abdominal wall sinus with small bowel fistula. Patient will remain n.p.o. We will give her small bowel repair time to heal. Before starting oral feeds. She will remain on TPN.
[2022-11-10] MEDS: LEVOFLOXACIN 500MG-D5W PMX 500 MG in DEXTROSE/WATER 1 100ML.BAG IVPB SCH (14:34)
[2022-11-10 16:55] LABS: Glucose,Whole Blood 165 mg/dL (70-110)
--- NOTE | 2022-11-10 19:22 | P.PN ---
Progress Note - Text Progress Note Date: 11/10/22 Hospital course: This is a patient who has a chronic abdominal wound mood due to small bowel fis munir. Underwent debridement of abdominal wall wound with closure of the small bowel fistula. 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 Patient be started on TPN and lipids. Remains nothing by mouth. November 10: I assumed care of the patient today from [facility]. Reclining in bed. Requesting her home pain medications to be resumed. Getting TPN and lipids. Nothing by mouth. Ostomy bag is working. Bit of a congested cough. No fever no chills. Breathing stable. Active Medications Acetaminophen (Acetaminophen Tab 325 Mg Tab) 650 mg PO Q6HR PRN PRN Reason: Mild Pain or Fever >= 100.5 Stop: 12/07/22 10:45 Amlodipine Besylate (Amlodipine 5 Mg Tab) 5 mg PO QAM [facility] Last Admin: 11/10/22 10:00 Dose: 5 mg Atorvastatin Calcium (Atorvastatin 40 Mg Tab) 40 mg PO [facility] Last Admin: 11/09/22 21:35 Dose: 40 mg Baclofen (Baclofen 10 Mg Tab) 10 mg PO QID PRN PRN Reason: Muscle Spasm Last Admin: 11/09/22 16:28 Dose: 10 mg Benzonatate (Benzonatate 100 Mg Cap) 200 mg PO TID PRN PRN Reason: Cough Cholecalciferol (Cholecalciferol 25 Mcg (1000 Iu) Tablet) 50 mcg PO DAILY [facility] Last Admin: 11/10/22 10:00 Dose: 50 mcg Dextrose/Water (Dextrose 50% Syringe 50 Ml) 25 ml IVP PER PROTOCOL PRN; Protocol PRN Reason: Hypoglycemia Dextrose/Water (Dextrose 50% Syringe 50 Ml) 50 ml IVP PER PROTOCOL PRN; Protocol PRN Reason: Hypoglycemia Duloxetine HCl (Duloxetine Hcl 60 Mg Capsule.Dr) [facility] [place] Admin: 11/10/22 10:00 Dose: 60 mg Enoxaparin Sodium (Enoxaparin 40 Mg/0.4 Ml Syringe) 40 mg SQ DAILY [facility] Stop: 12/08/22 09:01 Last Admin: 11/10/22 10:00 Dose: 40 mg Famotidine (Famotidine 20 Mg Tab) 20 mg PO [facility] Last Admin: 11/09/22 21:35 Dose: 20 mg Hydromorphone HCl (Hydromorphone 0.5 Mg/0.5 Ml Syringe) 0.5 mg IVP Q3HR PRN PRN Reason: Moderate Pain (Scale 4 to 6) Stop: 12/07/22 10:45 Last Admin: 11/10/22 10:00 Dose: 0.5 mg Hydromorphone HCl (Hydromorphone 1 Mg/Ml 1 Ml Syringe) 1 mg IVP Q4HR PRN PRN Reason: Severe Pain (Scale 7 to 10) Stop: 12/07/22 10:45 Lactated Ringer's (Lactated Ringers) 1,000 mls @ 70 mls/hr IV .[id number] [facility] Last Admin: 11/10/22 05:05 Dose: 70 mls/hr Fat Emulsion Intravenous 250 (ml/ IV Solution) 250 mls @ 21 mls/hr IV MoTh@1200 [facility] Last Admin: 11/09/22 13:11 Dose: 21 mls/hr Parenteral Vitamin Supplement 10 ml/ Zinc/Copper/Manganese/Selenium 1 ml/ Sodium Acetate 20 meq/ Potassium Chloride 20 meq/ Calcium Gluconate 1 gm/Magnesium Sulfate 0.75 gm/Sodium Phosphate 15 mmol/Amino Acids/Dextrose 1,047.5 mls @ 90 mls/hr IV .BY DURATION [facility] Sodium Acetate 20 meq/Potassium Chloride 20 meq/Calcium Gluconate 1 gm/Magnesium Sulfate 0.75 gm/Sodium Phosphate 15 mmol/Amino Acids/Dextrose 1,036.5 mls @ 90 mls/hr IV .BY DURATION [facility] Levofloxacin 500 mg/ IV (Solution) 100 mls @ 100 mls/hr IVPB Q24H [facility]; Protocol Last Admin: 11/10/22 14:34 Dose: 100 mls/hr Insulin Aspart (Insulin Aspart (Novolog) 100 Unit/Ml Vial) 0 unit SQ ACHS [facility]; Protocol Last Admin: 11/10/22 17:27 Dose: 2 unit Insulin Detemir (Insulin Detemir (Levemir) 100 Unit/Ml Syr) 15 unit SQ HS [facility] Last Admin: 11/09/22 21:35 Dose: 15 unit Levothyroxine Sodium (Levothyroxine 100 Mcg Tab) 100 mcg PO QAM@0630 [facility] Last Admin: 11/10/22 05:06 Dose: 100 mcg Metoprolol Tartrate (Metoprolol Tartrate 12.5 Mg Tab) 12.5 mg PO BID [facility] Last Admin: 11/10/22 10:00 Dose: 12.5 mg Multivitamins (Multivitamins, Thera 1 Each Tab) 1 each PO DAILY [facility] Last Admin: 11/10/22 10:00 Dose: 1 each Naloxone HCl (Naloxone 0.4 Mg/Ml 1 Ml Vial) 0.2 mg IV Q2M PRN PRN Reason: Opioid Reversal Stop: 12/07/22 10:45 Ondansetron HCl (Ondansetron 4 Mg/2 Ml Vial) 4 mg IVP Q6HR PRN PRN Reason: Nausea And Vomiting Stop: 12/07/22 10:45 Oxycodone HCl (Oxycodone Hcl 5 Mg Tab) 10 mg PO Q6H PRN PRN Reason: Pain Last Admin: 11/10/22 13:54 Dose: 10 mg Pioglitazone HCl (Pioglitazone 15 Mg Tab) 15 mg PO DAILY [facility] Last Admin: 11/10/22 10:00 Dose: 15 mg On examination: VITAL SIGNS: [97.8, 80, 18, 154/68, 93% room air] GENERAL APPEARANCE: BMI 39.4, declining but awake not in distress HEENT: Normal external appearance of nose and ear. Oral cavity normal EYES: Pupils equal. Conjunctiva normal. NECK: JVD not raised. Mass not palpable. RESPIRATORY: Respiratory effort normal. Lungs clear to auscultation. CARDIOVASCULAR: First and second sounds normal. No edema. ABDOMEN: Soft. Liver and spleen not palpable. No tenderness. No mass palpable. Dressing over the wound. Left-sided colostomy bag with stool PSYCHIATRY: Alert and oriented x3. Mood and affect normal. 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 Dressing changes persist Dr. Harrison. Nothing by mouth -TPN and lipids -Chronic diverticulitis with frozen pelvis -Diabetes mellitus type 2, chronically on insulin and oral hypoglycemic Follow Accu-Cheks and sliding scale. Resume Trulicity -Depression Cymbalta -Hypothyroid Synthroid -Essential hypertension Lopressor, amlodipine -Chronic low back pain from arthritis Resume home dose of oxycodone Care was discussed with the patient. Resume home dose of oxycodone. Resume Trulicity. Continue TPN and lipids.
[2022-11-10] MEDS ORDERED: NON FORMULARY DRUG (Dulaglutide [Trulicity] 4.5 MG/0.5 ML Each) SQ SCH (19:30)
--- NOTE | 2022-11-10 19:35 | P.PN ---
Subjective Patient is seen for follow-up for acute kidney injury. Renal function has improved. Patient was on Toradol which was discontinued. Maintained on IV fluids Creatinine down to 7.9 mg/dL Objective - Vital Signs Vital signs: Vital Signs Temp 98.2 F 11/10/22 16:14 Pulse 80 11/10/22 16:14 Resp 18 11/10/22 16:14 BP 141/64 11/10/22 16:14 Pulse Ox 95 11/10/22 16:14 FiO2 Intake & Output 11/10/22 11/10/22 11/11/22 06:59 18:59 06:59 Intake Total 0 Balance 0 Intake: Oral 0 Other: Voiding Method Toilet # Voids 2 5 # Bowel Movements 1 1 - Exam Patient is comfortable awake alert oriented 3. Examination of the heart S1 and S2 Examination of the lungs bilateral breath sounds are heard Abdomen is soft nontender, incision is dressed. Colostomy noted. 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 - Labs CBC & Chem 7: 11/10/22 07:08 11/10/22 07:08 Labs: Abnormal Lab Results - Last 24 Hours (Table) 11/09/22 11/10/22 11/10/22 Range/Units 20:47 06:06 07:08 WBC (4.50-10.00) X 10*3/uL MCHC (32.0-37.0) g/dL Immature Gran # (0.00-0.04) X 10*3/uL Neutrophils # (1.80-7.70) X 10*3/uL Monocytes # (0.20-1.00) X 10*3/uL Sodium 136 L (137-145) mmol/L Glucose 182 H (74-99) mg/dL POC Glucose (mg/dL) 143 H 187 H (70-110) mg/dL 11/10/22 11/10/22 Range/Units 07:08 16:54 WBC 12.53 H (4.50-10.00) X 10*3/uL MCHC 31.2 L (32.0-37.0) g/dL Immature Gran # 0.05 H (0.00-0.04) X 10*3/uL Neutrophils # 9.93 H (1.80-7.70) X 10*3/uL Monocytes # 1.26 H (0.20-1.00) X 10*3/uL Sodium (137-145) mmol/L Glucose (74-99) mg/dL POC Glucose (mg/dL) 165 H (70-110) mg/dL Assessment and Plan Assessment: 1. Acute kidney injury secondary to NSAIDs 2. Chronic kidney disease NKF stage IIIa with serum creatinine fluctuating between 0.9-1.1 mg/dL. Etiology is nephrosclerosis. Now down to 0.7 with aggressive hydration. 3. 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 Hypertension with CK D Plan: Continue off of NSAIDs D/c IVF Monitor electrolytes.
[2022-11-10] MEDS: ATORVASTATIN 40 MG TAB PO SCH (20:20)
[2022-11-10] MEDS: FAMOTIDINE 20 MG TAB PO SCH (20:20)
[2022-11-10 21:45] LABS: Glucose,Whole Blood 197 mg/dL (70-110)
[2022-11-10 22:05] LABS: Appearance,Urine Cloudy (Clear); Bacteria,Urine Occasional /hpf; Bilirubin,Urine Negative (Negative); Blood,Urine Trace (Negative); Color,Urine Yellow; Glucose,Urine (UA) Negative (Negative); Ketones,Urine Negative (Negative); Leukocyte Esterase,Urine Large (Negative); Mucus,Urine Occasional /hpf; Nitrite,Urine Negative (Negative); PH, Urine 6.5 (5.0-8.0); Protein,Urine 1+ (Negative); RBC,Urine 6 /hpf (0-5); Specific Gravity,Urine 1.018 (1.001-1.035); Squamous Epithelial Cell,Urine 1 /hpf (0-4); Urobilinogen,Urine <2.0 mg/dL (<2.0); WBC,Urine >182 /hpf (0-5)
[2022-11-10] MEDS: LACTOBACILLUS ACIDOPH & BULGAR 1 EACH PACKET PO SCH (22:10)
[2022-11-10] MEDS: INSULIN DETEMIR (LEVEMIR) 100 UNIT/ML SYR SQ SCH (22:11)
[2022-11-11 05:46] LABS: Glucose,Whole Blood 246 mg/dL (70-110)
[2022-11-11] MEDS: INSULIN ASPART (NovoLOG) 100 UNIT/ML VIAL SQ SCH ×4 (06:51→20:58)
[2022-11-11] MEDS: LEVOTHYROXINE 100 MCG TAB PO SCH (06:51)
[2022-11-11 07:22] LABS: African American GFR (CKD) 82 (>60 ml/min/1.73 sqM); Anion Gap 6 mmol/L; Blood Urea Nitrogen 18 mg/dL (7-17); Calcium 8.5 mg/dL (8.4-10.2); Carbon Dioxide 29 mmol/L (22-30); Chloride 100 mmol/L (98-107); Glucose 232 mg/dL (74-99); Magnesium 1.7 mg/dL (1.6-2.3); Non-African American GFR(CKD) 71 (>60 ml/min/1.73 sqM); Phosphorus 3.1 mg/dL (2.5-4.5); Sodium 135 mmol/L (137-145)
[2022-11-11] MEDS: LACTOBACILLUS ACIDOPH & BULGAR 1 EACH PACKET PO SCH ×2 (08:57→20:57)
--- NOTE | 2022-11-11 09:24 | P.PN ---
Progress Note - Text Progress Note Date: 11/11/22 Patient remains stable. She denies a significant abdominal pain. On exam abdomen soft colostomy is functioning the abdominal wall wound shows no evidence of any bile staining or enteric contents suggestive of a recurrent small bowel fistula. Patiently local wound care. She'll remain nothing by mouth for now. And continue TPN.
[2022-11-11] MEDS: BACLOFEN 10 MG TAB PO PRN (09:27)
[2022-11-11] MEDS: ASPIRIN 81 MG PO SCH (09:28)
[2022-11-11] MEDS: ENOXAPARIN 40 MG/0.4 ML SYRINGE SQ SCH (09:28)
[2022-11-11] MEDS: CHOLECALCIFEROL 25 MCG (1000 IU) TABLET PO SCH (09:28)
[2022-11-11] MEDS: amLODIPine 5 MG TAB PO SCH (09:28)
[2022-11-11] MEDS: METOPROLOL TARTRATE 12.5 MG TAB PO SCH ×2 (09:28→20:56)
[2022-11-11] MEDS: MULTIVITAMINS, THERA 1 EACH TAB PO SCH (09:28)
[2022-11-11] MEDS: DULoxetine HCL 60 MG CAPSULE.DR PO SCH (09:28)
[2022-11-11] MEDS: PIOGLITAZONE 15 MG TAB PO SCH (09:29)
[2022-11-11 11:31] LABS: Glucose,Whole Blood 208 mg/dL (70-110)
[2022-11-11] MEDS: LEVOFLOXACIN 500MG-D5W PMX 500 MG in DEXTROSE/WATER 1 100ML.BAG IVPB SCH (12:25)
[2022-11-11] MEDS ORDERED: Dulaglutide [Trulicity] 3 MG/0.5 ML SQ SCH (15:00)
--- NOTE | 2022-11-11 15:49 | P.PN ---
Subjective Progress Note Date: 11/11/22 Follow-up for acute kidney injury, urine output not documented. Objective - Vital Signs Vital signs: Vital Signs Temp 98.0 F 11/11/22 13:09 Pulse 69 11/11/22 13:09 Resp 20 11/11/22 13:09 BP 173/66 11/11/22 13:09 Pulse Ox 98 11/11/22 13:09 FiO2 Intake & Output 11/10/22 11/11/22 11/11/22 18:59 06:59 18:59 Weight 100.8 kg Other: Voiding Method Toilet Toilet Diaper # Voids 5 3 # Bowel Movements 1 - Exam Acute distress S1-S2 heard Decreased breath sounds Abdomen distended Edema - Labs CBC & Chem 7: 11/10/22 07:08 11/11/22 06:27 Labs: Abnormal Lab Results - Last 24 Hours (Table) 11/10/22 11/10/22 11/10/22 Range/Units 16:54 21:20 21:43 Sodium (137-145) mmol/L BUN (7-17) mg/dL Glucose (74-99) mg/dL POC Glucose (mg/dL) 165 H 197 H (70-110) mg/dL Urine Appearance Cloudy H (Clear) Urine Protein 1+ H (Negative) Urine Blood Trace H (Negative) Ur Leukocyte Esterase Large H (Negative) Urine RBC 6 H (0-5) /hpf Urine WBC >182 H (0-5) /hpf Urine WBC Clumps Many H (None) /hpf Urine Bacteria Occasional H (None) /hpf Urine Mucus Occasional H (None) /hpf 11/11/22 11/11/22 11/11/22 Range/Units 05:44 06:27 11:29 Sodium 135 L (137-145) mmol/L BUN 18 H (7-17) mg/dL Glucose 232 H (74-99) mg/dL POC Glucose (mg/dL) 246 H 208 H (70-110) mg/dL Urine Appearance (Clear) Urine Protein (Negative) Urine Blood (Negative) Ur Leukocyte Esterase (Negative) Urine RBC (0-5) /hpf Urine WBC (0-5) /hpf Urine WBC Clumps (None) /hpf Urine Bacteria (None) /hpf Urine Mucus (None) /hpf Microbiology - Last 24 Hours (Table) 11/10/22 21:20 Urine Culture - Preliminary Urine,Voided Assessment and Plan Assessment: #1 acute kidney injury secondary to NSAID use. #2 CK D stage IIIa with a baseline creatinine of 0.9-1.1 MG per DL suspect nephrosclerosis. #3 chronic abdominal wall wound status post to right mid #4 hypertension with chronic kidney disease Plan: #1 renal function at baseline. #2 avoid nephrotoxic agents and hypotensive episodes #3 supportive care
[2022-11-11 16:24] LABS: Glucose,Whole Blood 184 mg/dL (70-110)
[2022-11-11 19:51] LABS: Glucose,Whole Blood 158 mg/dL (70-110)
[2022-11-11] MEDS: INSULIN DETEMIR (LEVEMIR) 100 UNIT/ML SYR SQ SCH (20:58)
[2022-11-11] MEDS: ATORVASTATIN 40 MG TAB PO SCH (20:58)
[2022-11-11] MEDS: FAMOTIDINE 20 MG TAB PO SCH (20:58)
--- NOTE | 2022-11-11 21:01 | P.PN ---
Progress Note - Text Progress Note Date: 11/11/22 Hospital course: This is a patient who has a chronic abdominal wound mood due to small bowel fis munir. Underwent debridement of abdominal wall wound with closure of the small bowel fistula. 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 Patient be started on TPN and lipids. Remains nothing by mouth. November 10: I assumed care of the patient today from [facility]. Reclining in bed. Requesting her home pain medications to be resumed. Getting TPN and lipids. Nothing by mouth. Ostomy bag is working. Bit of a congested cough. No fever no chills. Breathing stable. November 11: Getting TPN and lipids. Minimal abdominal discomfort. Brown stool in the ostomy bag. Congested cough. No expectoration. Back pain better. Active Medications Acetaminophen (Acetaminophen Tab 325 Mg Tab) 650 mg PO Q6HR PRN PRN Reason: Mild Pain or Fever >= 100.5 Stop: 12/07/22 10:45 Amlodipine Besylate (Amlodipine 5 Mg Tab) 5 mg PO QAM [facility] Last Admin: 11/11/22 09:28 Dose: 5 mg Aspirin (Aspirin 81 Mg) 81 mg PO DAILY [facility] Last Admin: 11/11/22 09:28 Dose: 81 mg Atorvastatin Calcium (Atorvastatin 40 Mg Tab) 40 mg PO HS [facility] Last Admin: 11/11/22 20:58 Dose: 40 mg Baclofen (Baclofen 10 Mg Tab) 10 mg PO QID PRN PRN Reason: Muscle Spasm Last Admin: 11/11/22 09:27 Dose: 10 mg Benzonatate (Benzonatate 100 Mg Cap) 200 mg PO TID PRN PRN Reason: Cough Cholecalciferol (Cholecalciferol 25 Mcg (1000 Iu) Tablet) 50 mcg PO DAILY [facility] Last Admin: 11/11/22 09:28 Dose: 50 mcg Dextrose/Water (Dextrose 50% Syringe 50 Ml) 25 ml IVP PER PROTOCOL PRN; Protocol PRN Reason: Hypoglycemia Dextrose/Water (Dextrose 50% Syringe 50 Ml) 50 ml IVP PER PROTOCOL PRN; Protocol PRN Reason: Hypoglycemia Duloxetine HCl (Duloxetine Hcl 60 Mg Capsule.Dr) 60 mg PO QAM [facility] Last Admin: 11/11/22 09:28 Dose: 60 mg Enoxaparin Sodium (Enoxaparin 40 Mg/0.4 Ml Syringe) 40 mg SQ DAILY [facility] Stop: 12/08/22 09:01 Last Admin: 11/11/22 09:28 Dose: 40 mg Famotidine (Famotidine 20 Mg Tab) 20 mg PO HS [facility] Last Admin: 11/11/22 20:58 Dose: 20 mg Hydromorphone HCl (Hydromorphone 0.5 Mg/0.5 Ml Syringe) 0.5 mg IVP Q3HR PRN PRN Reason: Moderate Pain (Scale 4 to 6) Stop: 12/07/22 10:45 Last Admin: 11/10/22 10:00 Dose: 0.5 mg Hydromorphone HCl (Hydromorphone 1 Mg/Ml 1 Ml Syringe) 1 mg IVP Q4HR PRN PRN Reason: Severe Pain (Scale 7 to 10) Stop: 12/07/22 10:45 Fat Emulsion Intravenous 250 (ml/ IV Solution) 250 mls @ 21 mls/hr IV MoTh@1200 [facility] Last Admin: 11/09/22 13:11 Dose: 21 mls/hr Parenteral Vitamin Supplement 10 ml/ Zinc/Copper/Manganese/Selenium 1 ml/ Sodium Acetate 20 meq/ Potassium Chloride 20 meq/ Calcium Gluconate 1 gm/Magnesium Sulfate 0.75 gm/Sodium Phosphate 15 mmol/Amino Acids/Dextrose 1,047.5 mls @ 90 mls/hr IV .BY DURATION [facility] Last Admin: 11/11/22 07:33 Dose: 90 mls/hr Sodium Acetate 20 meq/Potassium Chloride 20 meq/Calcium Gluconate 1 gm/Magnesium Sulfate 0.75 gm/Sodium Phosphate 15 mmol/Amino Acids/Dextrose 1,036.5 mls @ 90 mls/hr IV .BY DURATION [facility] Last Admin: 11/11/22 18:51 Dose: 90 mls/hr Levofloxacin 500 mg/ IV (Solution) 100 mls @ 100 mls/hr IVPB Q24H [facility]; Protocol Last Admin: 11/11/22 12:25 Dose: 100 mls/hr Insulin Aspart (Insulin Aspart (Novolog) 100 Unit/Ml Vial) 0 unit SQ [facility]; Protocol Last Admin: 11/11/22 20:58 Dose: 2 unit Insulin Detemir (Insulin Detemir (Levemir) 100 Unit/Ml Syr) 15 unit SQ [facility] Last Admin: 11/11/22 20:58 Dose: 15 unit Lactobacillus Acidoph/Bulgaricus (Lactobacillus Acidoph & Bulgar 1 Each Packet) 1 each PO BID [facility] Last Admin: 11/11/22 20:57 Dose: 1 each Levothyroxine Sodium (Levothyroxine 100 Mcg Tab) 100 mcg PO QAM@0630 [facility] Last Admin: 11/11/22 06:51 Dose: 100 mcg Metoprolol Tartrate (Metoprolol Tartrate 12.5 Mg Tab) 12.5 mg PO BID [facility] Last Admin: 11/11/22 20:56 Dose: 12.5 mg Multivitamins (Multivitamins, Thera 1 Each Tab) 1 each PO DAILY [facility] Last Admin: 11/11/22 09:28 Dose: 1 each Naloxone HCl (Naloxone 0.4 Mg/Ml 1 Ml Vial) 0.2 mg IV Q2M PRN PRN Reason: Opioid Reversal Stop: 12/07/22 10:45 Dulaglutide [ Trulicity] 3 Mg/0.5 Ml 3 mg SQ Q7D [facility] Stop: 11/15/22 09:01 Ondansetron HCl (Ondansetron 4 Mg/2 Ml Vial) 4 mg IVP Q6HR PRN PRN Reason: Nausea And Vomiting Stop: 12/07/22 10:45 Oxycodone HCl (Oxycodone Hcl 5 Mg Tab) 10 mg PO Q6H PRN PRN Reason: Pain Last Admin: 11/11/22 20:56 Dose: 10 mg Pioglitazone HCl (Pioglitazone 15 Mg Tab) 15 mg PO DAILY [facility] Last Admin: 11/11/22 09:29 Dose: 15 mg On examination: VITAL SIGNS: 98, 69, 20, 156/72, 98% room air GENERAL APPEARANCE: Reclining in bed, comfortable HEENT: Normal external appearance of nose and ear. Oral cavity normal EYES: Pupils equal. Conjunctiva normal. NECK: JVD not raised. Mass not palpable. RESPIRATORY: Respiratory effort normal. Lungs clear to auscultation. CARDIOVASCULAR: First and second sounds normal. No edema. ABDOMEN: Soft. Liver and spleen not palpable. No tenderness. No mass palpable. Dressing over the wound. Left-sided colostomy bag with stool PSYCHIATRY: Alert and oriented x3. Mood and affect normal. 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 Dressing changes-Dr. Harrison. Nothing by mouth -TPN and lipids -Chronic diverticulitis with frozen pelvis -Diabetes mellitus type 2, chronically on insulin and oral hypoglycemic Follow Accu-Cheks and sliding scale. Trulicity -Depression Cymbalta -Hypothyroid Synthroid -Essential hypertension Lopressor, amlodipine -Chronic low back pain from arthritis home dose of oxycodone discussed with the patient. TPN and lipids. Back pain better. Patient to sit up in a chair.
[2022-11-12 05:45] LABS: Glucose,Whole Blood 205 mg/dL (70-110)
[2022-11-12] MEDS: INSULIN ASPART (NovoLOG) 100 UNIT/ML VIAL SQ SCH ×4 (06:55→20:02)
[2022-11-12] MEDS: LEVOTHYROXINE 100 MCG TAB PO SCH (07:05)
[2022-11-12 08:05] LABS: African American GFR (CKD) 72 (>60 ml/min/1.73 sqM); Anion Gap 6 mmol/L; Blood Urea Nitrogen 22 mg/dL (7-17); Calcium 8.6 mg/dL (8.4-10.2); Carbon Dioxide 30 mmol/L (22-30); Chloride 99 mmol/L (98-107); Glucose 201 mg/dL (74-99); Non-African American GFR(CKD) 62 (>60 ml/min/1.73 sqM); Phosphorus 3.7 mg/dL (2.5-4.5); Potassium 4.3 mmol/L (3.5-5.1); Sodium 135 mmol/L (137-145)
[2022-11-12] MEDS: ASPIRIN 81 MG PO SCH (09:05)
[2022-11-12] MEDS: ENOXAPARIN 40 MG/0.4 ML SYRINGE SQ SCH (09:05)
[2022-11-12] MEDS: CHOLECALCIFEROL 25 MCG (1000 IU) TABLET PO SCH (09:05)
[2022-11-12] MEDS: amLODIPine 5 MG TAB PO SCH (09:05)
[2022-11-12] MEDS: DULoxetine HCL 60 MG CAPSULE.DR PO SCH (09:05)
[2022-11-12] MEDS: MULTIVITAMINS, THERA 1 EACH TAB PO SCH (09:05)
[2022-11-12] MEDS: METOPROLOL TARTRATE 12.5 MG TAB PO SCH ×2 (09:05→20:01)
[2022-11-12] MEDS: PIOGLITAZONE 15 MG TAB PO SCH (09:06)
[2022-11-12] MEDS: LACTOBACILLUS ACIDOPH & BULGAR 1 EACH PACKET PO SCH ×2 (09:06→20:02)
[2022-11-12] MEDS: BACLOFEN 10 MG TAB PO PRN (09:10)
[2022-11-12 11:05] LABS: Glucose,Whole Blood 208 mg/dL (70-110)
[2022-11-12] MEDS: LEVOFLOXACIN 500MG-D5W PMX 500 MG in DEXTROSE/WATER 1 100ML.BAG IVPB SCH (12:06)
--- NOTE | 2022-11-12 12:39 | P.PN ---
Progress Note - Text Progress Note Date: 11/12/22 Patient is still. She has some minimal crampy abdominal pain today. She has had no significant drainage from her abdominal wound. On exam vital signs are stable. Abdomen soft. Examination reveals no evidence of enteric contents. Status post abdominal wall exploration with small bowel fistula repair. Patient to receive TPN.
[2022-11-12 16:34] LABS: Glucose,Whole Blood 175 mg/dL (70-110)
--- NOTE | 2022-11-12 16:44 | P.PN ---
Progress Note - Text Progress Note Date: 11/12/22 Hospital course: This is a patient who has a chronic abdominal wound mood due to small bowel fis munir. Underwent debridement of abdominal wall wound with closure of the small bowel fistula. 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 Patient be started on TPN and lipids. Remains nothing by mouth. November 10: I assumed care of the patient today from [facility]. Reclining in bed. Requesting her home pain medications to be resumed. Getting TPN and lipids. Nothing by mouth. Ostomy bag is working. Bit of a congested cough. No fever no chills. Breathing stable. November 11: Getting TPN and lipids. Minimal abdominal discomfort. Brown stool in the ostomy bag. Congested cough. No expectoration. Back pain better. November 12: DP and lipids. Remains nothing by mouth. Ostomy bag putting out stool. No pain. IV Levaquin per Dr. Harrison. Active Medications Acetaminophen (Acetaminophen Tab 325 Mg Tab) 650 mg PO Q6HR PRN PRN Reason: Mild Pain or Fever >= 100.5 Stop: 12/07/22 10:45 Amlodipine Besylate ([facility] 5 Mg Tab) [facility] Admin: 11/12/22 09:05 Dose: 5 mg Aspirin (Aspirin 81 Mg) 81 mg PO DAILY [facility] Last Admin: 11/12/22 09:05 Dose: 81 mg Atorvastatin Calcium (Atorvastatin 40 Mg Tab) 40 mg PO HS [facility] Last Admin: 11/11/22 20:58 Dose: 40 mg Baclofen (Baclofen 10 Mg Tab) 10 mg PO QID PRN PRN Reason: Muscle Spasm Last Admin: 11/12/22 09:10 Dose: 10 mg Benzonatate (Benzonatate 100 Mg Cap) 200 mg PO TID PRN PRN Reason: Cough Cholecalciferol (Cholecalciferol 25 Mcg (1000 Iu) Tablet) 50 mcg PO DAILY [facility] Last Admin: 11/12/22 09:05 Dose: 50 mcg Dextrose/Water (Dextrose 50% Syringe 50 Ml) 25 ml IVP PER PROTOCOL PRN; Protocol PRN Reason: Hypoglycemia Dextrose/Water (Dextrose 50% Syringe 50 Ml) 50 ml IVP PER PROTOCOL PRN; Protocol PRN Reason: Hypoglycemia Duloxetine HCl (Duloxetine Hcl 60 Mg Emile.) 60 mg PO QAM [facility] Last Admin: 11/12/22 09:05 Dose: 60 mg Enoxaparin Sodium (Enoxaparin 40 Mg/0.4 Ml Syringe) 40 mg SQ DAILY [facility] Stop: 12/08/22 09:01 Last Admin: 11/12/22 09:05 Dose: 40 mg Famotidine (Famotidine 20 Mg Tab) 20 mg PO HS [facility] Last Admin: 11/11/22 20:58 Dose: 20 mg Hydromorphone HCl (Hydromorphone 0.5 Mg/0.5 Ml Syringe) 0.5 mg IVP Q3HR PRN PRN Reason: Moderate Pain (Scale 4 to 6) Stop: 12/07/22 10:45 Last Admin: 11/10/22 10:00 Dose: 0.5 mg Hydromorphone HCl (Hydromorphone 1 Mg/Ml 1 Ml Syringe) 1 mg IVP Q4HR PRN PRN Reason: Severe Pain (Scale 7 to 10) Stop: 12/07/22 10:45 Fat Emulsion Intravenous 250 (ml/ IV Solution) 250 mls @ 21 mls/hr IV MoTh@1200 [facility] Last Admin: 11/09/22 13:11 Dose: 21 mls/hr Parenteral Vitamin Supplement 10 ml/ Zinc/Copper/Manganese/Selenium 1 ml/ Sodium Acetate 20 meq/ Potassium Chloride 20 meq/ Calcium Gluconate 1 gm/Magnesium Sulfate 0.75 gm/Sodium Phosphate 15 mmol/Amino Acids/Dextrose 1,047.5 mls @ 90 mls/hr IV .BY DURATION [facility] Stop: 11/12/22 20:59 Last Admin: 11/11/22 07:33 Dose: 90 mls/hr Sodium Acetate 20 meq/Potassium Chloride 20 meq/Calcium Gluconate 1 gm/Magnesium Sulfate 0.75 gm/Sodium Phosphate 15 mmol/Amino Acids/Dextrose 1,036.5 mls @ 90 mls/hr IV .BY DURATION [facility] Stop: 11/12/22 20:59 Last Admin: 11/12/22 08:26 Dose: 90 mls/hr Parenteral Vitamin Supplement 10 ml/ Zinc/Copper/Manganese/Selenium 1 ml/ Sodium Chloride 36 meq/ Potassium Acetate 18 meq/ Calcium Gluconate 1 gm/Magnesium Sulfate 0.5 gm/Sodium Phosphate 9 mmol/ Amino Acids/Dextrose 1,043 mls @ 90 m ls/hr IV .BY DURATION [facility] Sodium Chloride 36 meq/Potassium Acetate 18 meq/Calcium Gluconate 1 gm/Magnesium Sulfate 0.5 gm/Sodium Phosphate 9 mmol/ Amino Acids/Dextrose 1,032 mls @ 90 mls/hr IV .BY DURATION [facility] Levofloxacin/Dextrose 250 mg/ (IV Solution) 50 mls @ 50 mls/hr IVPB Q24H [facility] Insulin Aspart (Insulin Aspart (Novolog) 100 Unit/Ml Vial) 0 unit SQ [facility]S [facility]; Protocol Last Admin: 11/12/22 12:06 Dose: 4 unit Insulin Detemir (Insulin Detemir (Levemir) 100 Unit/Ml Syr) 15 unit SQ HS [facility] Last Admin: 11/11/22 20:58 Dose: 15 unit Lactobacillus Acidoph/Bulgaricus (Lactobacillus Acidoph & Bulgar 1 Each Packet) 1 each PO BID [facility] Last Admin: 11/12/22 09:06 Dose: Not Given Levothyroxine Sodium (Levothyroxine 100 Mcg Tab) 100 mcg PO QAM@0630 [facility] Last Admin: 11/12/22 07:05 Dose: 100 mcg Metoprolol Tartrate (Metoprolol Tartrate 12.5 Mg Tab) 12.5 mg PO BID [facility] Last Admin: 11/12/22 09:05 Dose: 12.5 mg Multivitamins (Multivitamins, Thera 1 Each Tab) 1 each PO DAILY [facility] Last Admin: 11/12/22 09:05 Dose: 1 each Naloxone HCl (Naloxone 0.4 Mg/Ml 1 Ml Vial) 0.2 mg IV Q2M PRN PRN Reason: Opioid Reversal Stop: 12/07/22 10:45 Dulaglutide [ Trulicity] 3 Mg/0.5 Ml 3 mg SQ Q7D [facility] Stop: 11/15/22 09:01 Ondansetron HCl (Ondansetron 4 Mg/2 Ml Vial) 4 mg IVP Q6HR PRN PRN Reason: Nausea And Vomiting Stop: 12/07/22 10:45 Oxycodone HCl (Oxycodone Hcl 5 Mg Tab) 10 mg PO Q6H PRN PRN Reason: Pain Last Admin: 11/12/22 16:32 Dose: 10 mg Pioglitazone HCl (Pioglitazone 15 Mg Tab) 15 mg PO DAILY [facility] Last Admin: 11/12/22 09:06 Dose: 15 mg On examination: VITAL SIGNS: 98.1, 70, 19, 120/70, 97% room air GENERAL APPEARANCE: Up in a recliner, comfortable HEENT: Normal external appearance of nose and ear. Oral cavity normal EYES: Pupils equal. Conjunctiva normal. NECK: JVD not raised. Mass not palpable. RESPIRATORY: Respiratory effort normal. Lungs clear to auscultation. CARDIOVASCULAR: First and second sounds normal. No edema. ABDOMEN: Soft. Liver and spleen not palpable. No tenderness. No mass palpable. Dressing over the wound. Left-sided colostomy bag with stool PSYCHIATRY: Alert and oriented x3. Mood and affect normal. 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 Dressing changes-Dr. Harrison. Nothing by mouth -TPN and lipids -Chronic diverticulitis with frozen pelvis -Diabetes mellitus type 2, chronically on insulin and oral hypoglycemic Follow Accu-Cheks and sliding scale. Trulicity -Depression Cymbalta -Hypothyroid Synthroid -Essential hypertension Lopressor, amlodipine -Chronic low back pain from arthritis oxycodone discussed. TPN and lipids. IV Levaquin per Dr. Harrison
[2022-11-12] MEDS: HYDROmorphone 1 MG/ML 1 ML SYRINGE IVP PRN ×2 (17:51→23:29)
--- NOTE | 2022-11-12 18:01 | P.PN ---
Subjective Progress Note Date: 11/12/22 Follow-up for acute kidney injury, urine output not documented. Objective - Vital Signs Vital signs: Vital Signs Temp 98.1 F 11/12/22 13:37 Pulse 70 11/12/22 13:37 Resp 19 11/12/22 13:37 BP 120/70 11/12/22 13:37 Pulse Ox 97 11/12/22 13:37 FiO2 Intake & Output 11/11/22 11/12/22 11/12/22 18:59 06:59 18:59 Intake Total 2116.5 1036.5 Balance 2116.5 1036.5 Weight 100.8 kg Intake: Intake, IV Titration 1036.5 1036.5 Amount Sodium Acetate 20 meq 1036.5 1036.5 Potassium Chloride 20 meq Calcium Gluconate 1 gm Magnesium Sulfate gm 0.75 gm Sodium Phosphate 15 mmol In Amino Acids 5 %/ Dextrose 20 % 1,000 ml @ 90 mls/hr IV .BY DURATION [facility] Rx#:[id number] TPN/PPN 1080 Mvi, Adult No.4 with Vit 1080 K 10 ml Trace (Conc-1Ml/ Dose) 1 ml Sodium Acetate 20 meq Potassium Chloride 20 meq Calcium Gluconate 1 gm Magnesium Sulfate gm 0.75 gm Sodium Phosphate 15 mmol In Amino Acids 5 %/Dextrose 20 % 1,000 ml @ 90 mls/hr IV .BY DURATION [facility] Rx#: [id number] Other: Voiding Method Toilet Toilet Toilet Diaper Diaper Diaper # Voids 2 - Exam Acute distress S1-S2 heard Decreased breath sounds Abdomen distended Edema - Labs CBC & Chem 7: 11/10/22 07:08 11/12/22 07:06 Labs: Abnormal Lab Results - Last 24 Hours (Table) 11/11/22 11/12/22 11/12/22 Range/Units 19:50 05:41 07:06 Sodium 135 L (137-145) mmol/L BUN 22 H (7-17) mg/dL Glucose 201 H (74-99) mg/dL POC Glucose (mg/dL) 158 H 205 H (70-110) mg/dL 11/12/22 11/12/22 Range/Units 11:05 16:33 Sodium (137-145) mmol/L BUN (7-17) mg/dL Glucose (74-99) mg/dL POC Glucose (mg/dL) 208 H 175 H (70-110) mg/dL Microbiology - Last 24 Hours (Table) 11/10/22 21:20 Urine Culture - Final Urine,Voided Assessment and Plan Assessment: #1 acute kidney injury secondary to NSAID use. #2 CK D stage IIIa with a baseline creatinine of 0.9-1.1 MG per DL suspect nephrosclerosis. #3 chronic abdominal wall wound status post to right mid #4 hypertension with chronic kidney disease Plan: #1 renal function at baseline. #2 avoid nephrotoxic agents and hypotensive episodes #3 supportive care
[2022-11-12] MEDS: 1: MVI, ADULT NO.4 WITH VIT K 10 ML, TRACE (CONC-1ML/DOSE) 1 ML, SODIUM CHLORIDE 4MEQ/ML IV SCH ×16 (20:00→22:47)
[2022-11-12] MEDS: ATORVASTATIN 40 MG TAB PO SCH (20:01)
[2022-11-12] MEDS: FAMOTIDINE 20 MG TAB PO SCH (20:02)
[2022-11-12 20:07] LABS: Glucose,Whole Blood 97 mg/dL (70-110)
[2022-11-12] MEDS: INSULIN DETEMIR (LEVEMIR) 100 UNIT/ML SYR SQ SCH (21:08)
[2022-11-13 05:46] LABS: Glucose,Whole Blood 177 mg/dL (70-110)
[2022-11-13 05:51] LABS: African American GFR (CKD) 79 (>60 ml/min/1.73 sqM); Anion Gap 7 mmol/L; Blood Urea Nitrogen 25 mg/dL (7-17); Calcium 8.6 mg/dL (8.4-10.2); Carbon Dioxide 29 mmol/L (22-30); Chloride 98 mmol/L (98-107); Glucose 188 mg/dL (74-99); Magnesium 1.8 mg/dL (1.6-2.3); Non-African American GFR(CKD) 68 (>60 ml/min/1.73 sqM); Phosphorus 3.4 mg/dL (2.5-4.5); Potassium 3.8 mmol/L (3.5-5.1); Sodium 134 mmol/L (137-145)
[2022-11-13] MEDS: LEVOTHYROXINE 100 MCG TAB PO SCH (06:05)
[2022-11-13] MEDS: BACLOFEN 10 MG TAB PO PRN (06:05)
[2022-11-13] MEDS: INSULIN ASPART (NovoLOG) 100 UNIT/ML VIAL SQ SCH ×4 (06:05→21:40)
[2022-11-13] MEDS: HYDROmorphone 1 MG/ML 1 ML SYRINGE IVP PRN (06:06)
[2022-11-13] MEDS: 1: MVI, ADULT NO.4 WITH VIT K 10 ML, TRACE (CONC-1ML/DOSE) 1 ML, SODIUM CHLORIDE 4MEQ/ML IV SCH ×16 (07:42→20:35)
[2022-11-13] MEDS: CHOLECALCIFEROL 25 MCG (1000 IU) TABLET PO SCH (07:49)
[2022-11-13] MEDS: DULoxetine HCL 60 MG CAPSULE.DR PO SCH (07:49)
[2022-11-13] MEDS: amLODIPine 5 MG TAB PO SCH (07:49)
[2022-11-13] MEDS: METOPROLOL TARTRATE 12.5 MG TAB PO SCH ×2 (07:49→21:40)
[2022-11-13] MEDS: ASPIRIN 81 MG PO SCH (07:49)
[2022-11-13] MEDS: ENOXAPARIN 40 MG/0.4 ML SYRINGE SQ SCH (07:49)
[2022-11-13] MEDS: MULTIVITAMINS, THERA 1 EACH TAB PO SCH (07:50)
[2022-11-13] MEDS: PIOGLITAZONE 15 MG TAB PO SCH (07:50)
[2022-11-13] MEDS: LACTOBACILLUS ACIDOPH & BULGAR 1 EACH PACKET PO SCH ×2 (07:50→21:39)
--- NOTE | 2022-11-13 10:24 | P.PN ---
Subjective Patient is seen in follow-up for acute kidney injury on chronic kidney disease. GFR back to baseline. Receiving TPN. No vomiting. Blood pressure stable. Vital signs are stable. General: No acute distress. HEENT: Head exam is unremarkable. LUNGS: No audible rhonchi or wheezes. HEART: Rate and Rhythm are regular. ABDOMEN: Nontender. Colostomy noted. EXTREMITITES: No edema. Objective - Vital Signs Vital signs: Vital Signs Temp 98.5 F 11/13/22 07:08 Pulse 66 11/13/22 07:08 Resp 20 11/13/22 08:00 BP 126/74 11/13/22 07:08 Pulse Ox 94 L 11/13/22 07:08 FiO2 Intake & Output 11/12/22 11/13/22 11/13/22 18:59 06:59 18:59 Intake Total 1043 Balance 1043 Intake: Intake, IV Titration 1043 Amount Mvi, Adult No.4 with Vit 1043 K 10 ml Trace (Conc-1Ml/ Dose) 1 ml Sodium Chloride 4Meq/ml Vial 36 meq Potassium Acetate 18 meq Calcium Gluconate 1 gm Magnesium Sulfate gm 0 .5 gm Sodium Phosphate 9 mmol In Amino Acids 5 %/ Dextrose 20 % 1,000 ml @ 90 mls/hr IV .BY DURATION [facility] Rx#:[id number] Other: Voiding Method Toilet Diaper # Voids 2 - Labs CBC & Chem 7: 11/10/22 07:08 11/13/22 05:02 Labs: Abnormal Lab Results - Last 24 Hours (Table) 11/12/22 11/12/22 11/13/22 Range/Units 11:05 16:33 05:02 Sodium 134 L (137-145) mmol/L BUN 25 H (7-17) mg/dL Glucose 188 H (74-99) mg/dL POC Glucose (mg/dL) 208 H 175 H (70-110) mg/dL 11/13/22 Range/Units 05:45 Sodium (137-145) mmol/L BUN (7-17) mg/dL Glucose (74-99) mg/dL POC Glucose (mg/dL) 177 H (70-110) mg/dL Microbiology - Last 24 Hours (Table) 11/10/22 21:20 Urine Culture - Final Urine,Voided Assessment and Plan Plan: Assessment: 1. Acute kidney injury mostly prerenal secondary to nonsteroidals. Resolved. 2. Chronic kidney disease stage IIIa with baseline creatinine near 1. Suspect diabetic kidney disease due to proteinuria on UA. Further workup outpatient. 3. Abdominal wall wound on antibiotics. 4. Hypertension with chronic kidney disease. Stable. 5. Diabetes mellitus. Plan: TPN and diet per surgery. Avoid nephrotoxins. Continue to monitor renal function and urine output.
[2022-11-13 11:29] LABS: Glucose,Whole Blood 199 mg/dL (70-110)
[2022-11-13] MEDS: LEVOFLOXACIN 250MG-D5W PMX 250 MG in DEXTROSE/WATER 1 50ML.BAG IVPB SCH (11:49)
[2022-11-13] MEDS: FAT EMULSION 20% 250 ML in EMPTY BAG 1 BAG IV SCH (11:56)
--- NOTE | 2022-11-13 14:40 | P.PN ---
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 Patient has a known history of severe diverticulitis with frozen pelvis. Patient remains nothing by mouth. She is getting TPN for nutrition support. She does aerobic port abdominal pain at the wound. She reports that the dressing is dry and sticking to the abdomen. Afebrile. WBC is 12.53 on 11/10 PHYSICAL EXAM: VITAL SIGNS: Reviewed. GENERAL: Well-developed in no acute distress. HEENT: No sclera icterus. Extraocular movements grossly intact. Moist buccal mucosa. Head is atraumatic, normocephalic. ABDOMEN: Soft. Nondistended. Abdominal wound with serosanguineous and yellowish drainage on dressing. No stool in wound. Colostomy with evidence of stool. NEUROLOGIC: Alert and oriented. Cranial nerves II through XII grossly intact. ASSESSMENT: 1. 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 History of severe diverticulitis and frozen pelvis 3. Diabetes PLAN: -Continue TPN for nutrition support -Keep patient nothing by mouth except for medications -Continue pain management -Continue wet-to-dry daily dressings to abdominal wound -Continue anabiotic -DVT prophylaxis Lovenox and GI prophylaxis Pepcid Physician Professional Healthcare Representative note has been reviewed by physician. Signing provider agrees with the documented findings, assessment, and plan of care. Objective - Vital Signs Vital signs: Vital Signs Temp 98.0 F 11/13/22 13:52 Pulse 76 11/13/22 13:52 Resp 20 11/13/22 13:52 BP 108/71 11/13/22 13:52 Pulse Ox 94 L 11/13/22 13:52 FiO2 Intake & Output 11/12/22 11/13/22 11/13/22 18:59 06:59 18:59 Intake Total 1279 Balance 1279 Intake: Intake, IV Titration 1043 Amount Mvi, Adult No.4 with Vit 1043 K 10 ml Trace (Conc-1Ml/ Dose) 1 ml Sodium Chloride 4Meq/ml Vial 36 meq Potassium Acetate 18 meq Calcium Gluconate 1 gm Magnesium Sulfate gm 0 .5 gm Sodium Phosphate 9 mmol In Amino Acids 5 %/ Dextrose 20 % 1,000 ml @ 90 mls/hr IV .BY DURATION [facility] Rx#:[id number] Oral 236 Other: Voiding Method Toilet Diaper # Voids 2 - Labs CBC & Chem 7: 11/10/22 07:08 11/13/22 05:02 Labs: Abnormal Lab Results - Last 24 Hours (Table) 11/12/22 11/13/22 11/13/22 Range/Units 16:33 05:02 05:45 Sodium 134 L (137-145) mmol/L BUN 25 H (7-17) mg/dL Glucose 188 H (74-99) mg/dL POC Glucose (mg/dL) 175 H 177 H (70-110) mg/dL 11/13/22 Range/Units 11:27 Sodium (137-145) mmol/L BUN (7-17) mg/dL Glucose (74-99) mg/dL POC Glucose (mg/dL) 199 H (70-110) mg/dL Microbiology - Last 24 Hours (Table) 11/10/22 21:20 Urine Culture - Final Urine,Voided
[2022-11-13 16:23] LABS: Glucose,Whole Blood 171 mg/dL (70-110)
--- NOTE | 2022-11-13 18:19 | P.PN ---
Progress Note - Text Progress Note Date: 11/13/22 Hospital course: This is a patient who has a chronic abdominal wound mood due to small bowel fis munir. Underwent debridement of abdominal wall wound with closure of the small bowel fistula. 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 Patient be started on TPN and lipids. Remains nothing by mouth. November 10: I assumed care of the patient today from [facility]. Reclining in bed. Requesting her home pain medications to be resumed. Getting TPN and lipids. Nothing by mouth. Ostomy bag is working. Bit of a congested cough. No fever no chills. Breathing stable. November 11: Getting TPN and lipids. Minimal abdominal discomfort. Brown stool in the ostomy bag. Congested cough. No expectoration. Back pain better. November 12: TPN and lipids. Remains nothing by mouth. Ostomy bag putting out stool. No pain. IV Levaquin per Dr. Harrison. November 13: Getting TPN and lipids. Remains nothing by mouth. Putting out stool. No abdominal pain. IV Levaquin. Active Medications Acetaminophen (Acetaminophen Tab 325 Mg Tab) 650 mg PO Q6HR PRN PRN Reason: Mild Pain or Fever >= 100.5 Stop: 12/07/22 10:45 Amlodipine Besylate (Amlodipine 5 Mg Tab) 5 mg PO QAM [facility] Last Admin: 11/13/22 07:49 Dose: 5 mg Aspirin (Aspirin 81 Mg) 81 mg PO DAILY [facility] Last Admin: 11/13/22 07:49 Dose: 81 mg Atorvastatin Calcium (Atorvastatin 40 Mg Tab) 40 mg PO HS [facility] Last Admin: 11/12/22 20:01 Dose: 40 mg Baclofen (Baclofen 10 Mg Tab) 10 mg PO QID PRN PRN Reason: Muscle Spasm Last Admin: 11/13/22 06:05 Dose: 10 mg Benzonatate (Benzonatate 100 Mg Cap) 200 mg PO TID PRN PRN Reason: Cough Cholecalciferol (Cholecalciferol 25 Mcg (1000 Iu) Tablet) 50 mcg PO DAILY [facility] Last Admin: 11/13/22 07:49 Dose: 50 mcg Dextrose/Water (Dextrose 50% Syringe 50 Ml) 25 ml IVP PER PROTOCOL PRN; Protocol PRN Reason: Hypoglycemia Dextrose/Water (Dextrose 50% Syringe 50 Ml) 50 ml IVP PER PROTOCOL PRN; Protocol PRN Reason: Hypoglycemia Duloxetine HCl (Duloxetine Hcl 60 Mg Capsule.Dr) 60 mg PO QAM [facility] Last Admin: 11/13/22 07:49 Dose: 60 mg Enoxaparin Sodium (Enoxaparin 40 Mg/0.4 Ml Syringe) 40 mg SQ DAILY [facility] Stop: 12/08/22 09:01 Last Admin: 11/13/22 07:49 Dose: 40 mg Famotidine (Famotidine 20 Mg Tab) 20 mg PO HS [facility] Last Admin: 11/12/22 20:02 Dose: 20 mg Hydromorphone HCl (Hydromorphone 0.5 Mg/0.5 Ml Syringe) 0.5 mg IVP Q3HR PRN PRN Reason: Moderate Pain (Scale 4 to 6) Stop: 12/07/22 10:45 Last Admin: 11/10/22 10:00 Dose: 0.5 mg Hydromorphone HCl (Hydromorphone 1 Mg/Ml 1 Ml Syringe) 1 mg IVP Q4HR PRN PRN Reason: Severe Pain (Scale 7 to 10) Stop: 12/07/22 10:45 Last Admin: 11/13/22 06:06 Dose: 1 mg Fat Emulsion Intravenous 250 (ml/ IV Solution) 250 mls @ 21 mls/hr IV MoTh@1200 [facility] Last Admin: 11/13/22 11:56 Dose: 21 mls/hr Parenteral Vitamin Supplement 10 ml/ Zinc/Copper/Manganese/Selenium 1 ml/ Sodium Chloride 36 meq/ Potassium Acetate 18 meq/ Calcium Gluconate 1 gm/Magnesium Sulfate 0.5 gm/Sodium Phosphate 9 mmol/ Amino Acids/Dextrose 1,043 mls @ 90 mls/hr IV .BY DURATION [facility] Stop: 11/13/22 18:59 Last Admin: 11/13/22 07:42 Dose: 90 mls/hr Sodium Chloride 36 meq/Potassium Acetate 18 meq/Calcium Gluconate 1 gm/Magnesium Sulfate 0.5 gm/Sodium Phosphate 9 mmol/ Amino Acids/Dextrose 1,032 mls @ 90 mls/hr IV .BY DURATION [facility] Stop: 11/13/22 18:59 Last Admin: 11/12/22 22:47 Dose: Not Given Levofloxacin/Dextrose 250 mg/ (IV Solution) 50 mls @ 50 mls/hr IVPB Q24H [facility] Last Admin: 11/13/22 11:49 Dose: 50 mls/hr Parenteral Vitamin Supplement 10 ml/ Zinc/Copper/Manganese/Selenium 1 ml/ Sodium Chloride 44 meq/ Potassium Acetate 20 meq/ Calcium Gluconate 1 gm/Magnesium Sul fate 0.75 gm/Sodium Phosphate 9 mmol/ Amino Acids/Dextrose 1,046.5 mls @ 90 mls/hr IV .BY DURATION [facility] Sodium Chloride 44 meq/Potassium Acetate 20 meq/Calcium Gluconate 1 gm/Magnesium Sulfate 0.75 gm/Sodium Phosphate 9 mmol/ Amino Acids/Dextrose 1,035.5 mls @ 90 mls/hr IV .BY DURATION [facility] Insulin Aspart (Insulin Aspart (Novolog) 100 Unit/Ml Vial) 0 unit SQ ACHS [facility]; Protocol Last Admin: 11/13/22 17:53 Dose: 2 unit Insulin Detemir (Insulin Detemir (Levemir) 100 Unit/Ml Syr) 15 unit SQ HS [facility] Last Admin: 11/12/22 21:08 Dose: 15 unit Lactobacillus Acidoph/Bulgaricus (Lactobacillus Acidoph & Bulgar 1 Each Packet) 1 each PO BID [facility] Last Admin: 11/13/22 07:50 Dose: 1 each Levothyroxine Sodium (Levothyroxine 100 Mcg Tab) 100 mcg PO QAM@0630 [facility] Last Admin: 11/13/22 06:05 Dose: 100 mcg Metoprolol Tartrate (Metoprolol Tartrate 12.5 Mg Tab) 12.5 mg PO BID [facility] Last Admin: 11/13/22 07:49 Dose: 12.5 mg Multivitamins (Multivitamins, Thera 1 Each Tab) 1 each PO DAILY [facility] Last Admin: 11/13/22 07:50 Dose: 1 each Naloxone HCl (Naloxone 0.4 Mg/Ml 1 Ml Vial) 0.2 mg IV Q2M PRN PRN Reason: Opioid Reversal Stop: 12/07/22 10:45 Dulaglutide [ Trulicity] 3 Mg/0.5 Ml 3 mg SQ Q7D [facility] Stop: 11/15/22 09:01 Ondansetron HCl (Ondansetron 4 Mg/2 Ml Vial) 4 mg IVP Q6HR PRN PRN Reason: Nausea And Vomiting Stop: 12/07/22 10:45 Oxycodone HCl (Oxycodone Hcl 5 Mg Tab) 10 mg PO Q6H PRN PRN Reason: Pain Last Admin: 11/13/22 11:49 Dose: 10 mg Pioglitazone HCl (Pioglitazone 15 Mg Tab) 15 mg PO DAILY [facility] Last Admin: 11/13/22 07:50 Dose: 15 mg On examination: VITAL SIGNS: 98, 76, 20, 108/71, 94% on 2 L GENERAL APPEARANCE: Declining, comfortable HEENT: Normal external appearance of nose and ear. Oral cavity normal EYES: Pupils equal. Conjunctiva normal. NECK: JVD not raised. Mass not palpable. RESPIRATORY: Respiratory effort normal. Lungs clear to auscultation. CARDIOVASCULAR: First and second sounds normal. No edema. ABDOMEN: Soft. Liver and spleen not palpable. No tenderness. No mass palpable. Dressing over the wound. Left-sided colostomy bag with stool PSYCHIATRY: Alert and oriented x3. Mood and affect normal. 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 Dressing changes-Dr. Harrison. Nothing by mouth -TPN and lipids -Chronic diverticulitis with frozen pelvis -Diabetes mellitus type 2, chronically on insulin and oral hypoglycemic Follow Accu-Cheks and sliding scale. Trulicity -Depression Cymbalta -Hypothyroid Synthroid -Essential hypertension Lopressor, amlodipine -Chronic low back pain from arthritis oxycodone TPN and lipids. IV Levaquin. Nothing by mouth
[2022-11-13] MEDS: FAMOTIDINE 20 MG TAB PO SCH (21:40)
[2022-11-13] MEDS: ATORVASTATIN 40 MG TAB PO SCH (21:40)
[2022-11-13] MEDS: INSULIN DETEMIR (LEVEMIR) 100 UNIT/ML SYR SQ SCH (21:40)
[2022-11-14 06:10] LABS: Glucose,Whole Blood 204 mg/dL (70-110)
[2022-11-14] MEDS: INSULIN ASPART (NovoLOG) 100 UNIT/ML VIAL SQ SCH ×4 (06:10→21:44)
[2022-11-14] MEDS: LEVOTHYROXINE 100 MCG TAB PO SCH (06:10)
[2022-11-14 06:30] LABS: African American GFR (CKD) 87 (>60 ml/min/1.73 sqM); Anion Gap 5 mmol/L; Blood Urea Nitrogen 26 mg/dL (7-17); Calcium 8.8 mg/dL (8.4-10.2); Carbon Dioxide 29 mmol/L (22-30); Chloride 103 mmol/L (98-107); Glucose 209 mg/dL (74-99); Non-African American GFR(CKD) 76 (>60 ml/min/1.73 sqM); Phosphorus 3.6 mg/dL (2.5-4.5); Potassium 4.2 mmol/L (3.5-5.1); Sodium 137 mmol/L (137-145)
[2022-11-14] MEDS: ENOXAPARIN 40 MG/0.4 ML SYRINGE SQ SCH (08:41)
[2022-11-14] MEDS: DULoxetine HCL 60 MG CAPSULE.DR PO SCH (08:41)
[2022-11-14] MEDS: METOPROLOL TARTRATE 12.5 MG TAB PO SCH ×2 (08:42→21:44)
[2022-11-14] MEDS: ASPIRIN 81 MG PO SCH (08:42)
[2022-11-14] MEDS: amLODIPine 5 MG TAB PO SCH (08:42)
[2022-11-14] MEDS: CHOLECALCIFEROL 25 MCG (1000 IU) TABLET PO SCH (08:42)
[2022-11-14] MEDS: PIOGLITAZONE 15 MG TAB PO SCH (08:43)
[2022-11-14] MEDS: MULTIVITAMINS, THERA 1 EACH TAB PO SCH (08:43)
[2022-11-14] MEDS: LACTOBACILLUS ACIDOPH & BULGAR 1 EACH PACKET PO SCH ×2 (08:43→21:44)
[2022-11-14 09:45] LABS: Basophils # (A) 0.04 X 10*3/uL (0.00-0.10); Basophils % (A) 0.5 %; Eosinophils # (A) 0.49 X 10*3/uL (0.04-0.35); Eosinophils % (A) 6.6 %; HGB 12.6 g/dL (12.0-15.0); Immature Grans, Automated 0.5 %; Lymphocytes # (A) 1.05 X 10*3/uL (0.90-5.00); Lymphocytes % (A) 14.2 %; MCH 27.8 pg (27.0-32.0); MCHC 30.7 g/dL (32.0-37.0); MCV 90.3 fL (80.0-97.0); Mean Platelet Volume 11.7 fL (9.5-12.2); Monocytes # (A) 0.98 X 10*3/uL (0.20-1.00); Monocytes % (A) 13.2 %; NRBC Per 100 WBC 0 /100 WBCS (0.0-0.0); Neutrophils # (A) 4.81 X 10*3/uL (1.80-7.70); Platelet Count 283 X 10*3/uL (140-440); RBC 4.54 X 10*6/uL (4.10-5.20); RDW 13.7 % (11.5-14.5); WBC 7.41 X 10*3/uL (4.50-10.00)
[2022-11-14] MEDS: 1: MVI, ADULT NO.4 WITH VIT K 10 ML, TRACE (CONC-1ML/DOSE) 1 ML, SODIUM CHLORIDE 4MEQ/ML IV SCH ×16 (09:48→21:42)
[2022-11-14] MEDS: BACLOFEN 10 MG TAB PO PRN (11:25)
[2022-11-14 11:27] LABS: Glucose,Whole Blood 191 mg/dL (70-110)
--- NOTE | 2022-11-14 11:49 | P.PN ---
Subjective Patient is seen in follow-up for acute kidney injury on chronic kidney disease. GFR back to baseline. Receiving TPN. No vomiting. Being started on clear liquid diet. Vital signs are stable. General: No acute distress. HEENT: Head exam is unremarkable. LUNGS: No audible rhonchi or wheezes. HEART: Rate and Rhythm are regular. ABDOMEN: Nontender. Colostomy noted. EXTREMITITES: No edema. Objective - Vital Signs Vital signs: Vital Signs Temp 97.9 F 11/14/22 07:34 Pulse 66 11/14/22 07:34 Resp 19 11/14/22 07:34 BP 152/69 11/14/22 07:34 Pulse Ox 99 11/14/22 07:34 FiO2 Intake & Output 11/13/22 11/14/22 11/14/22 18:59 06:59 18:59 Intake Total 1279 1035.5 Balance 1279 1035.5 Intake: Intake, IV Titration 1043 1035.5 Amount Mvi, Adult No.4 with Vit 1043 K 10 ml Trace (Conc-1Ml/ Dose) 1 ml Sodium Chloride 4Meq/ml Vial 36 meq Potassium Acetate 18 meq Calcium Gluconate 1 gm Magnesium Sulfate gm 0 .5 gm Sodium Phosphate 9 mmol In Amino Acids 5 %/ Dextrose 20 % 1,000 ml @ 90 mls/hr IV .BY DURATION [facility] Rx#:[id number] Sodium Chloride 4Meq/ml 1035.5 Vial 44 meq Potassium Acetate 20 meq Calcium Gluconate 1 gm Magnesium Sulfate gm 0.75 gm Sodium Phosphate 9 mmol In Amino Acids 5 %/Dextrose 20 % 1,000 ml @ 90 mls/hr IV .BY DURATION [facility] Rx#: [id number] Oral 236 Other: # Voids 2 1 - Labs CBC & Chem 7: 11/14/22 06:00 11/14/22 06:00 Labs: Abnormal Lab Results - Last 24 Hours (Table) 11/13/22 11/14/22 11/14/22 Range/Units 16:21 06:00 06:00 MCHC 30.7 L (32.0-37.0) g/dL Eosinophils # 0.49 H (0.04-0.35) X 10*3/uL BUN 26 H (7-17) mg/dL Glucose 209 H (74-99) mg/dL POC Glucose (mg/dL) 171 H (70-110) mg/dL 11/14/22 11/14/22 Range/Units 06:01 11:26 MCHC (32.0-37.0) g/dL Eosinophils # (0.04-0.35) X 10*3/uL BUN (7-17) mg/dL Glucose (74-99) mg/dL POC Glucose (mg/dL) 204 H 191 H (70-110) mg/dL Assessment and Plan Plan: Assessment: 1. Acute kidney injury mostly prerenal secondary to nonsteroidals. Resolved. 2. Chronic kidney disease stage IIIa with baseline creatinine near 1. Suspect diabetic kidney disease due to proteinuria on UA. Further workup outpatient. 3. Abdominal wall wound on antibiotics. 4. Hypertension with chronic kidney disease. Stable. 5. Diabetes mellitus. Plan: TPN and diet per surgery. Avoid nephrotoxins. Continue to monitor renal function and urine output.
[2022-11-14 12:35] LABS: Glucose,Whole Blood 182 mg/dL (70-110)
[2022-11-14] MEDS: LEVOFLOXACIN 250MG-D5W PMX 250 MG in DEXTROSE/WATER 1 50ML.BAG IVPB SCH (14:53)
--- NOTE | 2022-11-14 15:41 | P.PN ---
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 Patient has a known history of severe diverticulitis with frozen pelvis. Patient does report some p ain at the abdominal wound. Denies any nausea or vomiting. Afebrile. WBC 7.41 hemoglobin 12.6 Patient seen and examined with Dr. naidu PHYSICAL EXAM: VITAL SIGNS: Reviewed. GENERAL: Well-developed in no acute distress. HEENT: No sclera icterus. Extraocular movements grossly intact. Moist buccal mucosa. Head is atraumatic, normocephalic. ABDOMEN: Soft. Nondistended. Abdominal wound with serosanguineous and yellowish drainage on dressing. No evidence of enteric contents. Colostomy with evidence of stool. NEUROLOGIC: Alert and oriented. Cranial nerves II through XII grossly intact. ASSESSMENT: 1. 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 History of severe diverticulitis and frozen pelvis 3. Diabetes PLAN: -Possible discharge tomorrow -Advance diet to clear liquids -Continue TPN for nutrition support -Continue pain management -Continue wet-to-dry daily dressings to abdominal wound -Continue antibiotic -DVT prophylaxis Lovenox and GI prophylaxis Pepcid Physician Card Player note has been reviewed by physician. Signing provider agrees with the documented findings, assessment, and plan of care. Objective - Vital Signs Vital signs: Vital Signs Temp 98.9 F 11/14/22 14:00 Pulse 68 11/14/22 14:00 Resp 18 11/14/22 14:00 BP 132/61 11/14/22 14:00 Pulse Ox 94 L 11/14/22 14:00 FiO2 Intake & Output 11/13/22 11/14/22 11/14/22 18:59 06:59 18:59 Intake Total 1279 1035.5 Balance 1279 1035.5 Weight 100.8 kg Intake: Intake, IV Titration 1043 1035.5 Amount Mvi, Adult No.4 with Vit 1043 K 10 ml Trace (Conc-1Ml/ Dose) 1 ml Sodium Chloride 4Meq/ml Vial 36 meq Potassium Acetate 18 meq Calcium Gluconate 1 gm Magnesium Sulfate gm 0 .5 gm Sodium Phosphate 9 mmol In Amino Acids 5 %/ Dextrose 20 % 1,000 ml @ 90 mls/hr IV .BY DURATION [facility] Rx#:[id number] Sodium Chloride 4Meq/ml 1035.5 Vial 44 meq Potassium Acetate 20 meq Calcium Gluconate 1 gm Magnesium Sulfate gm 0.75 gm Sodium Phosphate 9 mmol In Amino Acids 5 %/Dextrose 20 % 1,000 ml @ 90 mls/hr IV .BY DURATION [facility] Rx#: [id number] Oral 236 Other: # Voids 2 1 - Labs CBC & Chem 7: 11/14/22 06:00 11/14/22 06:00 Labs: Abnormal Lab Results - Last 24 Hours (Table) 11/13/22 11/13/22 11/14/22 Range/Units 16:21 20:36 06:00 MCHC 30.7 L (32.0-37.0) g/dL Eosinophils # 0.49 H (0.04-0.35) X 10*3/uL BUN (7-17) mg/dL Glucose (74-99) mg/dL POC Glucose (mg/dL) 171 H 182 H (70-110) mg/dL 11/14/22 11/14/22 11/14/22 Range/Units 06:00 06:01 11:26 MCHC (32.0-37.0) g/dL Eosinophils # (0.04-0.35) X 10*3/uL BUN 26 H (7-17) mg/dL Glucose 209 H (74-99) mg/dL POC Glucose (mg/dL) 204 H 191 H (70-110) mg/dL
[2022-11-14 16:19] LABS: Glucose,Whole Blood 208 mg/dL (70-110)
--- NOTE | 2022-11-14 16:43 | P.PN ---
Progress Note - Text Progress Note Date: 11/14/22 Hospital course: This is a patient who has a chronic abdominal wound mood due to small bowel fis munir. Underwent debridement of abdominal wall wound with closure of the small bowel fistula. 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 Patient be started on TPN and lipids. Remains nothing by mouth. November 10: I assumed care of the patient today from [facility]. Reclining in bed. Requesting her home pain medications to be resumed. Getting TPN and lipids. Nothing by mouth. Ostomy bag is working. Bit of a congested cough. No fever no chills. Breathing stable. November 11: Getting TPN and lipids. Minimal abdominal discomfort. Brown stool in the ostomy bag. Congested cough. No expectoration. Back pain better. November 12: TPN and lipids. Remains nothing by mouth. Ostomy bag putting out stool. No pain. IV Levaquin per Dr. Harrison. November 13: Getting TPN and lipids. Remains nothing by mouth. Putting out stool. No abdominal pain. IV Levaquin. November 14: Patient somewhat upset that she still has to stay in the hospital. Reassured. Explained. Continues with TPN and lipids. Levaquin. Has been up in a chair. Patient is missing her cat. His started on clear liquids by surgery Active Medications Acetaminophen (Acetaminophen Tab 325 Mg Tab) 650 mg PO Q6HR PRN PRN Reason: Mild Pain or Fever >= 100.5 Stop: 12/07/22 10:45 Amlodipine Besylate (Amlodipine 5 Mg Tab) 5 mg PO QAM [facility] Last Admin: 11/14/22 08:42 Dose: 5 mg Aspirin (Aspirin 81 Mg) 81 mg PO DAILY [facility] Last Admin: 11/14/22 08:42 Dose: 81 mg Atorvastatin Calcium (Atorvastatin 40 Mg Tab) 40 mg PO HS [facility] Last Admin: 11/13/22 21:40 Dose: 40 mg Baclofen (Baclofen 10 Mg Tab) 10 mg PO QID PRN PRN Reason: Muscle Spasm Last Admin: 11/14/22 11:25 Dose: 10 mg Benzonatate (Benzonatate 100 Mg Cap) 200 mg PO TID PRN PRN Reason: Cough Cholecalciferol (Cholecalciferol 25 Mcg (1000 Iu) Tablet) 50 mcg PO DAILY [facility] Last Admin: 11/14/22 08:42 Dose: 50 mcg Dextrose/Water (Dextrose 50% Syringe 50 Ml) 25 ml IVP PER PROTOCOL PRN; Protocol PRN Reason: Hypoglycemia Dextrose/Water (Dextrose 50% Syringe 50 Ml) 50 ml IVP PER PROTOCOL PRN; Protocol PRN Reason: Hypoglycemia Duloxetine HCl (Duloxetine Hcl 60 Mg Capsule.Dr) 60 mg PO QAM [facility] Last Admin: 11/14/22 08:41 Dose: 60 mg Enoxaparin Sodium (Enoxaparin 40 Mg/0.4 Ml Syringe) 40 mg SQ DAILY [facility] Stop: 12/08/22 09:01 Last Admin: 11/14/22 08:41 Dose: 40 mg Famotidine (Famotidine 20 Mg Tab) 20 mg PO HS [facility] Last Admin: 11/13/22 21:40 Dose: 20 mg Hydromorphone HCl (Hydromorphone 0.5 Mg/0.5 Ml Syringe) 0.5 mg IVP Q3HR PRN PRN Reason: Moderate Pain (Scale 4 to 6) Stop: 12/07/22 10:45 Last Admin: 11/10/22 10:00 Dose: 0.5 mg Hydromorphone HCl (Hydromorphone 1 Mg/Ml 1 Ml Syringe) 1 mg IVP Q4HR PRN PRN Reason: Severe Pain (Scale 7 to 10) Stop: 12/07/22 10:45 Last Admin: 11/13/22 06:06 Dose: 1 mg Fat Emulsion Intravenous 250 (ml/ IV Solution) 250 mls @ 21 mls/hr IV MoTh@1200 [facility] Last Admin: 11/13/22 11:56 Dose: 21 mls/hr Levofloxacin/Dextrose 250 mg/ (IV Solution) 50 mls @ 50 mls/hr IVPB Q24H [facility] Last Admin: 11/14/22 14:53 Dose: 50 mls/hr Parenteral Vitamin Supplement 10 ml/ Zinc/Copper/Manganese/Selenium 1 ml/ Sodium Chloride 44 meq/ Potassium Acetate 20 meq/ Calcium Gluconate 1 gm/Magnesium Sulfate 0.75 gm/Sodium Phosphate 9 mmol/ Amino Acids/Dextrose 1,046.5 mls @ 90 mls/hr IV .BY DURATION [facility] Sodium Chloride 44 meq/Potassium Acetate 20 meq/Calcium Gluconate 1 gm/Magnesium Sulfate 0.75 gm/Sodium Phosphate 9 mmol/ Amino Acids/Dextrose 1,035.5 mls @ 90 mls/hr IV .BY DURATION [facility] Last Admin: 11/14/22 09:48 Dose: 90 mls/hr Insulin Aspart (Insulin Aspart (Novolog) 100 Unit/Ml Vial) 0 unit SQ ACHS [facility]; Protocol Last Admin: 11/14/22 12:09 Dose: 2 unit Insulin Detemir (Insulin Detemir (Levemir) 100 Unit/Ml Syr) 15 unit SQ HS [facility] Last Admin: 11/13/22 21:40 Dose: 15 unit Lactobacillus Acidoph/Bulgaricus (Lactobacillus Acidoph & Bulgar 1 Each Packet) 1 each PO BID [facility] Last Admin: 11/14/22 08:43 Dose: Not Given Levothyroxine Sodium (Levothyroxine 100 Mcg Tab) 100 mcg PO QAM@0630 [facility] Last Admin: 11/14/22 06:10 Dose: 100 mcg Metoprolol Tartrate (Metoprolol Tartrate 12.5 Mg Tab) 12.5 mg PO BID [facility] Last Admin: 11/14/22 08:42 Dose: 12.5 mg Multivitamins (Multivitamins, Thera 1 Each Tab) 1 each PO DAILY [facility] Last Admin: 11/14/22 08:43 Dose: 1 each Naloxone HCl (Naloxone 0.4 Mg/Ml 1 Ml Vial) 0.2 mg IV Q2M PRN PRN Reason: Opioid Reversal Stop: 12/07/22 10:45 Dulaglutide [ Trulicity] 3 Mg/0.5 Ml 3 mg SQ Q7D [facility] Stop: 11/15/22 09:01 Ondansetron HCl (Ondansetron 4 Mg/2 Ml Vial) 4 mg IVP Q6HR PRN PRN Reason: Nausea And Vomiting Stop: 12/07/22 10:45 Oxycodone HCl (Oxycodone Hcl 5 Mg Tab) 10 mg PO Q6H PRN PRN Reason: Pain Last Admin: 11/14/22 11:25 Dose: 10 mg Pioglitazone HCl (Pioglitazone 15 Mg Tab) 15 mg PO DAILY [facility] Last Admin: 11/14/22 08:43 Dose: 15 mg On examination: VITAL SIGNS: 97.9, 66, 19, 152/69, 99% room air GENERAL APPEARANCE: Reclining in bed, comfortable HEENT: Normal external appearance of nose and ear. Oral cavity normal EYES: Pupils equal. Conjunctiva normal. NECK: JVD not raised. Mass not palpable. RESPIRATORY: Respiratory effort normal. Lungs clear to auscultation. CARDIOVASCULAR: First and second sounds normal. No edema. ABDOMEN: Soft. Liver and spleen not palpable. No tenderness. No mass palpable. Dressing over the wound. Left-sided colostomy bag with stool PSYCHIATRY: Alert and oriented x3. Mood and affect normal. 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 Dressing changes-Dr. Harrison. Nothing by mouth. IV Levaquin. Wet to dry dressing. -TPN and lipids -Chronic diverticulitis with frozen pelvis -Diabetes mellitus type 2, chronically on insulin and oral hypoglycemic Follow Accu-Cheks and sliding scale. Trulicity -Depression Cymbalta -Hypothyroid Synthroid -Essential hypertension Lopressor, amlodipine -Chronic low back pain from arthritis oxycodone Discussed with patient. Reassured. Continue TPN lipids and IV Levaquin. Activity as tolerated. Patient started on clear liquids.
[2022-11-14 20:11] LABS: Glucose,Whole Blood 190 mg/dL (70-110)
[2022-11-14] MEDS: FAMOTIDINE 20 MG TAB PO SCH (21:44)
[2022-11-14] MEDS: ATORVASTATIN 40 MG TAB PO SCH (21:44)
[2022-11-14] MEDS: INSULIN DETEMIR (LEVEMIR) 100 UNIT/ML SYR SQ SCH (21:44)
[2022-11-15 05:05] LABS: ALT 17 U/L (4-34); AST 21 U/L (14-36); African American GFR (CKD) 82 (>60 ml/min/1.73 sqM); Alkaline Phosphatase 95 U/L (38-126); Anion Gap 7 mmol/L; Blood Urea Nitrogen 25 mg/dL (7-17); Calcium 8.6 mg/dL (8.4-10.2); Carbon Dioxide 27 mmol/L (22-30); Chloride 101 mmol/L (98-107); Globulin 3.1 g/dL; Glucose 209 mg/dL (74-99); Non-African American GFR(CKD) 71 (>60 ml/min/1.73 sqM); Phosphorus 3.4 mg/dL (2.5-4.5); Potassium 4.2 mmol/L (3.5-5.1); Sodium 135 mmol/L (137-145); Total Bilirubin 0.5 mg/dL (0.2-1.3); Total Protein 6.1 g/dL (6.3-8.2)
[2022-11-15 05:49] LABS: Glucose,Whole Blood 221 mg/dL (70-110)
[2022-11-15] MEDS: INSULIN ASPART (NovoLOG) 100 UNIT/ML VIAL SQ SCH ×4 (06:16→21:18)
[2022-11-15] MEDS: LEVOTHYROXINE 100 MCG TAB PO SCH (06:16)
[2022-11-15] MEDS: LACTOBACILLUS ACIDOPH & BULGAR 1 EACH PACKET PO SCH ×2 (07:41→21:17)
[2022-11-15] MEDS: ENOXAPARIN 40 MG/0.4 ML SYRINGE SQ SCH (07:41)
[2022-11-15] MEDS: CHOLECALCIFEROL 25 MCG (1000 IU) TABLET PO SCH (07:42)
[2022-11-15] MEDS: amLODIPine 5 MG TAB PO SCH (07:42)
[2022-11-15] MEDS: DULoxetine HCL 60 MG CAPSULE.DR PO SCH (07:42)
[2022-11-15] MEDS: PIOGLITAZONE 15 MG TAB PO SCH (07:42)
[2022-11-15] MEDS: ASPIRIN 81 MG PO SCH (07:42)
[2022-11-15] MEDS: METOPROLOL TARTRATE 12.5 MG TAB PO SCH ×2 (07:42→21:17)
[2022-11-15] MEDS: MULTIVITAMINS, THERA 1 EACH TAB PO SCH (07:43)
[2022-11-15] MEDS ORDERED: Dulaglutide [Trulicity] 3 MG/0.5 ML SQ SCH (09:00)
[2022-11-15] MEDS: 1: MVI, ADULT NO.4 WITH VIT K 10 ML, TRACE (CONC-1ML/DOSE) 1 ML, SODIUM CHLORIDE 4MEQ/ML IV SCH ×24 (09:32→20:44)
[2022-11-15 11:34] LABS: Glucose,Whole Blood 178 mg/dL (70-110)
--- NOTE | 2022-11-15 12:12 | P.PN ---
Subjective Patient is seen in follow-up for acute kidney injury on chronic kidney disease. GFR back to baseline. Receiving TPN. No vomiting. Now on full liquid diet. Wants to go home. Vital signs are stable. General: No acute distress. HEENT: Head exam is unremarkable. LUNGS: No audible rhonchi or wheezes. HEART: Rate and Rhythm are regular. ABDOMEN: Nontender. Colostomy noted. EXTREMITITES: No edema. Objective - Vital Signs Vital signs: Vital Signs Temp 97.8 F 11/15/22 07:03 Pulse 71 11/15/22 07:03 Resp 17 11/15/22 07:03 BP 138/72 11/15/22 07:03 Pulse Ox 98 11/15/22 07:03 FiO2 Intake & Output 11/14/22 11/15/22 11/15/22 18:59 06:59 18:59 Intake Total 1035.5 1035.5 Output Total 150 Balance 885.5 1035.5 Weight 100.8 kg Intake: Intake, IV Titration 1035.5 1035.5 Amount Sodium Chloride 4Meq/ml 1035.5 1035.5 Vial 44 meq Potassium Acetate 20 meq Calcium Gluconate 1 gm Magnesium Sulfate gm 0.75 gm Sodium Phosphate 9 mmol In Amino Acids 5 %/Dextrose 20 % 1,000 ml @ 90 mls/hr IV .BY DURATION [facility] Rx#: [id number] Output: Stool 150 Other: # Voids 4 1 - Labs CBC & Chem 7: 11/14/22 06:00 11/15/22 04:20 Labs: Abnormal Lab Results - Last 24 Hours (Table) 11/13/22 11/14/22 11/14/22 Range/Units 20:36 16:18 20:09 Sodium (137-145) mmol/L BUN (7-17) mg/dL Glucose (74-99) mg/dL POC Glucose (mg/dL) 182 H 208 H 190 H (70-110) mg/dL Total Protein (6.3-8.2) g/dL Albumin (3.5-5.0) g/dL 11/15/22 11/15/22 11/15/22 Range/Units 04:20 05:42 11:32 Sodium 135 L (137-145) mmol/L BUN 25 H (7-17) mg/dL Glucose 209 H (74-99) mg/dL POC Glucose (mg/dL) 221 H 178 H (70-110) mg/dL Total Protein 6.1 L (6.3-8.2) g/dL Albumin 3.0 L (3.5-5.0) g/dL Assessment and Plan Plan: Assessment: 1. Acute kidney injury mostly prerenal secondary to nonsteroidals. Resolved. 2. Chronic kidney disease stage IIIa with baseline creatinine near 1. Suspect diabetic kidney disease due to proteinuria on UA. Further workup outpatient. 3. Abdominal wall wound on antibiotics. 4. Hypertension with chronic kidney disease. Stable. 5. Diabetes mellitus. Plan: TPN and diet per surgery. Avoid nephrotoxins. Continue to monitor renal function and urine output.
[2022-11-15] MEDS: LEVOFLOXACIN 250MG-D5W PMX 250 MG in DEXTROSE/WATER 1 50ML.BAG IVPB SCH (12:22)
--- NOTE | 2022-11-15 12:56 | P.PN ---
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 Patient has a known history of severe diverticulitis with frozen pelvis. Patient sitting in bed com fortably. She reports her pain is controlled. Denies any nausea or vomiting. Ostomy is functioning. No evidence of enteric contents from the abdominal wound. Afebrile. Patient seen and examined with Dr. naidu PHYSICAL EXAM: VITAL SIGNS: Reviewed. GENERAL: Well-developed in no acute distress. HEENT: No sclera icterus. Extraocular movements grossly intact. Moist buccal mucosa. Head is atraumatic, normocephalic. ABDOMEN: Soft. Nondistended. Abdominal wound with serosanguineous and yellowish drainage on dressing. No evidence of enteric contents. Colostomy with evidence of stool. NEUROLOGIC: Alert and oriented. Cranial nerves II through XII grossly intact. ASSESSMENT: 1. 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 History of severe diverticulitis and frozen pelvis 3. Diabetes PLAN: -Consult infectious disease for abdominal wound care. Recommend no wound VAC at this time -Continue antibiotics -Continue local wound care with wet-to-dry dressing changes -Advance diet to full liquids -Wean off the TPN -Plan for discharge tomorrow -DVT prophylaxis Lovenox and GI prophylaxis Pepcid Physician Civil Geotechnical Engineer note has been reviewed by physician. Signing provider agrees with the documented findings, assessment, and plan of care. Objective - Vital Signs Vital signs: Vital Signs Temp 97.8 F 11/15/22 07:03 Pulse 71 11/15/22 07:03 Resp 17 11/15/22 07:03 BP 138/72 11/15/22 07:03 Pulse Ox 98 11/15/22 07:03 FiO2 Intake & Output 11/14/22 11/15/22 11/15/22 18:59 06:59 18:59 Intake Total 1035.5 1035.5 Output Total 150 Balance 885.5 1035.5 Weight 100.8 kg Intake: Intake, IV Titration 1035.5 1035.5 Amount Sodium Chloride 4Meq/ml 1035.5 1035.5 Vial 44 meq Potassium Acetate 20 meq Calcium Gluconate 1 gm Magnesium Sulfate gm 0.75 gm Sodium Phosphate 9 mmol In Amino Acids 5 %/Dextrose 20 % 1,000 ml @ 90 mls/hr IV .BY DURATION [facility] Rx#: [id number] Output: Stool 150 Other: # Voids 4 1 - Labs CBC & Chem 7: 11/14/22 06:00 11/15/22 04:20 Labs: Abnormal Lab Results - Last 24 Hours (Table) 11/13/22 11/14/22 11/14/22 Range/Units 20:36 06:00 11:26 MCHC 30.7 L (32.0-37.0) g/dL Eosinophils # 0.49 H (0.04-0.35) X 10*3/uL Sodium (137-145) mmol/L BUN (7-17) mg/dL Glucose (74-99) mg/dL POC Glucose (mg/dL) 182 H 191 H (70-110) mg/dL Total Protein (6.3-8.2) g/dL Albumin (3.5-5.0) g/dL 11/14/22 11/14/22 11/15/22 Range/Units 16:18 20:09 04:20 MCHC (32.0-37.0) g/dL Eosinophils # (0.04-0.35) X 10*3/uL Sodium 135 L (137-145) mmol/L BUN 25 H (7-17) mg/dL Glucose 209 H (74-99) mg/dL POC Glucose (mg/dL) 208 H 190 H (70-110) mg/dL Total Protein 6.1 L (6.3-8.2) g/dL Albumin 3.0 L (3.5-5.0) g/dL 11/15/22 Range/Units 05:42 MCHC (32.0-37.0) g/dL Eosinophils # (0.04-0.35) X 10*3/uL Sodium (137-145) mmol/L BUN (7-17) mg/dL Glucose (74-99) mg/dL POC Glucose (mg/dL) 221 H (70-110) mg/dL Total Protein (6.3-8.2) g/dL Albumin (3.5-5.0) g/dL
[2022-11-15 16:56] LABS: Glucose,Whole Blood 189 mg/dL (70-110)
--- NOTE | 2022-11-15 17:40 | P.PN ---
Progress Note - Text Progress Note Date: 11/15/22 Hospital course: This is a patient who has a chronic abdominal wound mood due to small bowel fis munir. Underwent debridement of abdominal wall wound with closure of the small bowel fistula. 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 Patient be started on TPN and lipids. Remains nothing by mouth. November 10: I assumed care of the patient today from [facility]. Reclining in bed. Requesting her home pain medications to be resumed. Getting TPN and lipids. Nothing by mouth. Ostomy bag is working. Bit of a congested cough. No fever no chills. Breathing stable. November 11: Getting TPN and lipids. Minimal abdominal discomfort. Brown stool in the ostomy bag. Congested cough. No expectoration. Back pain better. November 12: TPN and lipids. Remains nothing by mouth. Ostomy bag putting out stool. No pain. IV Levaquin per Dr. Harrison. November 13: Getting TPN and lipids. Remains nothing by mouth. Putting out stool. No abdominal pain. IV Levaquin. November 14: Patient somewhat upset that she still has to stay in the hospital. Reassured. Explained. Continues with TPN and lipids. Levaquin. Has been up in a chair. Patient is missing her cat. His started on clear liquids by surgery November 15: Patient passed a full liquid diet. No abdominal pain. On TPN and lipids. Levaquin. Surgical team is looking into possible discharge tomorrow. They have consulted ID for antibiotics. Active Medications Acetaminophen (Acetaminophen Tab 325 Mg Tab) 650 mg PO Q6HR PRN PRN Reason: Mild Pain or Fever >= 100.5 Stop: 12/07/22 10:45 Amlodipine Besylate (Amlodipine 5 Mg Tab) 5 mg PO QAM [facility] Last Admin: 11/15/22 07:42 Dose: 5 mg Aspirin (Aspirin 81 Mg) 81 mg PO DAILY [facility] Last Admin: 11/15/22 07:42 Dose: 81 mg Atorvastatin Calcium (Atorvastatin 40 Mg Tab) 40 mg PO HS [facility] Last Admin: 11/14/22 21:44 Dose: 40 mg Baclofen (Baclofen 10 Mg Tab) 10 mg PO QID PRN PRN Reason: Muscle Spasm Last Admin: 11/14/22 11:25 Dose: 10 mg Benzonatate (Benzonatate 100 Mg Cap) 200 mg PO TID PRN PRN Reason: Cough Cholecalciferol (Cholecalciferol 25 Mcg (1000 Iu) Tablet) 50 mcg PO DAILY [facility] Last Admin: 11/15/22 07:42 Dose: 50 mcg Dextrose/Water (Dextrose 50% Syringe 50 Ml) 25 ml IVP PER PROTOCOL PRN; Protocol PRN Reason: Hypoglycemia Dextrose/Water (Dextrose 50% Syringe 50 Ml) 50 ml IVP PER PROTOCOL PRN; Protocol PRN Reason: Hypoglycemia Duloxetine HCl (Duloxetine Hcl 60 Mg Capsule.Dr) 60 mg PO QAM [facility] Last Admin: 11/15/22 07:42 Dose: 60 mg Enoxaparin Sodium (Enoxaparin 40 Mg/0.4 Ml Syringe) 40 mg SQ DAILY [facility] Stop: 12/08/22 09:01 Last Admin: 11/15/22 07:41 Dose: 40 mg Famotidine (Famotidine 20 Mg Tab) 20 mg PO HS [facility] Last Admin: 11/14/22 21:44 Dose: 20 mg Hydromorphone HCl (Hydromorphone 0.5 Mg/0.5 Ml Syringe) 0.5 mg IVP Q3HR PRN PRN Reason: Moderate Pain (Scale 4 to 6) Stop: 12/07/22 10:45 Last Admin: 11/10/22 10:00 Dose: 0.5 mg Hydromorphone HCl (Hydromorphone 1 Mg/Ml 1 Ml Syringe) 1 mg IVP Q4HR PRN PRN Reason: Severe Pain (Scale 7 to 10) Stop: 12/07/22 10:45 Last Admin: 11/13/22 06:06 Dose: 1 mg Fat Emulsion Intravenous 250 (ml/ IV Solution) 250 mls @ 21 mls/hr IV MoTh@1200 [facility] Last Admin: 11/13/22 11:56 Dose: 21 mls/hr Levofloxacin/Dextrose 250 mg/ (IV Solution) 50 mls @ 50 mls/hr IVPB Q24H [facility] Last Admin: 11/15/22 12:22 Dose: 50 mls/hr Parenteral Vitamin Supplement 10 ml/ Zinc/Copper/Manganese/Selenium 1 ml/ Sodium Chloride 44 meq/ Potassium Acetate 20 meq/ Calcium Gluconate 1 gm/Magnesium Sulfate 0.75 gm/Sodium Phosphate 9 mmol/ Amino Acids/Dextrose 1,046.5 mls @ 90 mls/hr IV .BY DURATION [facility] Last Admin: 11/15/22 09:32 Dose: 90 mls/hr Sodium Chloride 44 meq/Potassium Acetate 20 meq/Calcium Gluconate 1 gm/Magnesium Sulfate 0.75 gm/Sodium Phosphate 9 mmol/ Amino Acids/Dextrose 1,035.5 mls @ 90 mls/hr IV .BY DURATION [facility] Last Admin: 11/15/22 17:18 Dose: Not Given Insulin Aspart (Insulin Aspart (Novolog) 100 Unit/Ml Vial) 0 unit SQ ACHS [facility]; Protocol Last Admin: 11/15/22 17:23 Dose: 2 unit Insulin Detemir (Insulin Detemir (Levemir) 100 Unit/Ml Syr) 15 unit SQ HS [facility] Last Admin: 11/14/22 21:44 Dose: 15 unit Lactobacillus Acidoph/Bulgaricus (Lactobacillus Acidoph & Bulgar 1 Each Packet) 1 each PO BID [facility] Last Admin: 11/15/22 07:41 Dose: 1 each Levothyroxine Sodium (Levothyroxine 100 Mcg Tab) 100 mcg PO QAM@0630 [facility] Last Admin: 11/15/22 06:16 Dose: 100 mcg Metoprolol Tartrate (Metoprolol Tartrate 12.5 Mg Tab) 12.5 mg PO BID [facility] Last Admin: 11/15/22 07:42 Dose: 12.5 mg Multivitamins (Multivitamins, Thera 1 Each Tab) 1 each PO DAILY [facility] Last Admin: 11/15/22 07:43 Dose: 1 each Naloxone HCl (Naloxone 0.4 Mg/Ml 1 Ml Vial) 0.2 mg IV Q2M PRN PRN Reason: Opioid Reversal Stop: 12/07/22 10:45 Ondansetron HCl (Ondansetron 4 Mg/2 Ml Vial) 4 mg IVP Q6HR PRN PRN Reason: Nausea And Vomiting Stop: 12/07/22 10:45 Oxycodone HCl (Oxycodone Hcl 5 Mg Tab) 10 mg PO Q6H PRN PRN Reason: Pain Last Admin: 11/15/22 00:27 Dose: 10 mg Pioglitazone HCl (Pioglitazone 15 Mg Tab) 15 mg PO DAILY [facility] Last Admin: 11/15/22 07:42 Dose: 15 mg On examination: VITAL SIGNS: 98.5, 72, 17, 140/78, 95% room air GENERAL APPEARANCE: Reclining in bed, comfortable HEENT: Normal external appearance of nose and ear. Oral cavity normal EYES: Pupils equal. Conjunctiva normal. NECK: JVD not raised. Mass not palpable. RESPIRATORY: Respiratory effort normal. Lungs clear to auscultation. CARDIOVASCULAR: First and second sounds normal. No edema. ABDOMEN: Soft. Liver and spleen not palpable. No tenderness. No mass palpable. Dressing over the wound. Left-sided colostomy bag with stool PSYCHIATRY: Alert and oriented x3. Mood and affect normal. 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 Dressing changes-Dr. Harrison. Full liquid diet IV Levaquin. Wet to dry dressing. -TPN and lipids -Chronic diverticulitis with frozen pelvis -Diabetes mellitus type 2, chronically on insulin and oral hypoglycemic Follow Accu-Cheks and sliding scale. Trulicity -Depression Cymbalta -Hypothyroid Synthroid -Essential hypertension Lopressor, amlodipine -Chronic low back pain from arthritis oxycodone Advanced to full liquid diet. Looking at plan for discharge tomorrow. ID consulted by surgery for possible home antibiotics.
[2022-11-15 21:03] LABS: Glucose,Whole Blood 193 mg/dL (70-110)
[2022-11-15] MEDS: ATORVASTATIN 40 MG TAB PO SCH (21:17)
[2022-11-15] MEDS: FAMOTIDINE 20 MG TAB PO SCH (21:17)
[2022-11-15] MEDS: INSULIN DETEMIR (LEVEMIR) 100 UNIT/ML SYR SQ SCH (21:18)
--- NOTE | 2022-11-15 22:23 | P.CONS ---
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 in this patient who did have a history of diverticulitis status post diverting colostomy in the past patient was taken to the OR on 11/07/2022 status postdebridement of the abdominal wall wound closure with small bowel fistula midline incision was left intact and not closed and is currently being treated with wet-to-dry dressing changes since the surgery patient on presentation to the hospital was afebrile and no fever has been recorded during this hospital stay patient did have a normal white count admission white count was slightly up at 12.53 on 10/22/2022 have subsequently has normalized kidney function has been normal liver enzymes are normal urine was positive urine culture however negative no abdominal cultures were done infectious disease was consulted today for management of her abdominal wound, patient currently denies having any fever or any chills she did have some mild pain to the abdominal incision area however mention overall pain is improving there is no foul-smelling drainage no chest pain shortness of breath or cough no nausea no vomiting no diarrhea Review of Systems Positive point and negatives has been mentioned in the HPI, complete review of systems was performed and all other systems are negative Past Medical History Past Medical History: Asthma, Coronary Artery Disease (CAD), Cancer, Diabetes Mellitus, Hearing Disorder / Deafness, Hyperlipidemia, Hypertension, Neurologic Disorder, Osteoarthritis (OA), Pneumonia, Renal Disease, Thyroid Disorder Additional Past Medical History / Comment(s): Hx Pneumonia and Bronchitis. Hx right ovarian cancer had chemo - finished October 2017. 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 Has colostomy. Neuropathy in hands and feet. Hard of hearing. Diverticulosis. History of Any Multi-Drug Resistant Organisms: ESBL, MRSA Year Discovered:: 08/31/22-MRSA; ESBL-05/26/19 MDRO Source:: Abdomen-MRSA; Urine-ESBL Past Surgical History: Appendectomy, Bowel Resection, Cholecystectomy, Hysterectomy, Joint Replacement, Orthopedic Surgery, Tonsillectomy Additional Past Surgical History / Comment(s): Exploratory laparotomy with ovarian tumor removal and lysis of adhesions, bilateral knee replacements, bilateral cataract removals, D&C/, calcium clot left eye, non function ing neurostimlator removed, glaucoma surgery, colonoscopy, colostomy 03/20/2022, trigger finger release. Past Anesthesia/Blood Transfusion Reactions: No Reported Reaction Additional Past Anesthesia/Blood Transfusion Reaction / Comm: Family hx unknown, patient was adopted. Past Psychological History: Bipolar, Depression Additional Psychological History / Comment(s): Patient lives alone in apt. with hercat named Pacheco. uses cane/walker at times. no home care services. Smoking Status: Former smoker Past Alcohol Use History: Rare Additional Past Alcohol Use History / Comment(s): Started smoking in 1959, quit for good in 1997, smoked 1-2 PPD. Past Drug Use History: None Reported - Past Family History Father History Unknown: Yes Family Medical History: Unable to Obtain Additional Family Medical History / Comment(s): Pt is adopted and does not know parents medical history. Medications and Allergies Home Medications Medication Instructions Recorded Confirmed Type Baclofen 10 mg PO QID PRN 01/06/16 11/07/22 History DULoxetine HCL [Cymbalta] 60 mg PO QAM 01/06/16 10/30/22 History Insulin NPH Hum/Reg Insulin Hm 10 - 14 unit SQ AC-BRKFST 03/17/16 10/30/22 History [NovoLIN 70-30 100 UNIT/ML VIAL] Insulin NPH Hum/Reg Insulin Hm 16 - 18 unit SQ AC-SUPPER 03/17/16 10/30/22 History [NovoLIN 70-30 100 UNIT/ML VIAL] Levothyroxine Sodium [Synthroid] 100 mcg PO QAM 07/25/17 10/30/22 History Aspirin EC [Ecotrin Low Dose] 81 mg PO DAILY 12/31/18 10/30/22 History Atorvastatin Calcium [Lipitor] 40 mg PO HS 12/31/18 11/07/22 History Ubidecarenone [Co Q-10] 200 mg PO DAILY 08/11/19 10/30/22 History Cholecalciferol [Vitamin D3 (25 50 mcg PO DAILY 03/07/22 10/30/22 History Mcg = 1000 Iu)] Cranberry Fruit Extract [Cranberry] 500 mg PO DAILY 03/07/22 10/30/22 History L.acidoph,Paracasei, B.lactis 1 cap PO BID 03/07/22 10/30/22 History [Probiotic] oxyCODONE HCL [oxyCODONE HCL (IR)] 10 mg PO Q6H PRN 3 Days #12 tab 03/23/22 10/30/22 Rx Alpha Lipoic Acid 600 mg PO DAILY 10/26/22 11/07/22 History Benzonatate [Tessalon Perles] 200 mg PO TID PRN 10/26/22 10/30/22 History Docusate Sodium [Dok] 200 mg PO BID 10/26/22 11/07/22 History Dulaglutide [Trulicity] 4.5 mg SQ Q7D 10/26/22 11/07/22 History Furosemide [Lasix] 20 mg PO DAILY 10/26/22 10/30/22 History Metoprolol Tartrate [Lopressor] 12.5 mg PO BID 10/26/22 10/30/22 History Multivitamins, Thera [Multivitamin 1 tab PO DAILY 10/26/22 10/30/22 History (formulary)] Pioglitazone [Actos] 15 mg PO DAILY 10/26/22 11/07/22 History amLODIPine [Norvasc] 5 mg PO QAM 10/26/22 10/30/22 History metFORMIN HCL ER [Glucophage XR] 500 mg PO BID 10/26/22 10/30/22 History Mucinex (Unknown Dose) 1 dose PO BID 10/30/22 10/30/22 History Levofloxacin [Levaquin] 500 mg PO DAILY 10 Days #10 tab 11/16/22 Rx Allergies Allergy/AdvReac Type Severity Reaction Status Date / Time adhesive Allergy blisters Verified 11/07/22 08:15 amoxicillin Allergy Rash/Hives Verified 11/07/22 08:15 ciprofloxacin [From Cipro] AdvReac Dyspnea Verified 11/07/22 08:15 ciprofloxacin HCl AdvReac Dyspnea Verified 11/07/22 08:15 [From Cipro] Physical Exam Vitals: Vital Signs Temp Pulse Resp BP Pulse Ox 11/15/22 07:03 97.8 F 71 17 138/72 98 11/15/22 01:42 98.1 F 66 16 119/49 93 L 11/14/22 19:00 98.0 F 74 18 121/72 98 11/14/22 14:00 98.9 F 68 18 132/61 94 L Intake and Output 11/14/22 11/15/22 11/15/22 22:59 06:59 14:59 Intake Total 1035.5 Output Total 150 Balance 885.5 Intake: Intake, IV Titration 1035.5 Amount Sodium Chloride 4Meq/ml 1035.5 Vial 44 meq Potassium Acetate 20 meq Calcium Gluconate 1 gm Magnesium Sulfate gm 0.75 gm Sodium Phosphate 9 mmol In Amino Acids 5 %/Dextrose 20 % 1,000 ml @ 90 mls/hr IV .BY DURATION [facility] Rx#: [id number] Output: Stool 150 Other: # Voids 2 1 GENERAL DESCRIPTION: Elderly female lying in bed, no distress. No tachypnea or accessory muscle of respiration use. HEENT: Shows Pallor , no scleral icterus. Oral mucous membrane is dry. No pharyngeal erythema or thrush NECK: Trachea central, no thyromegaly. LUNGS: Unlabored breathing. Clear to auscultation anteriorly. No wheeze or crackle. HEART: S1, S2, regular rate and rhythm. No loud murmur ABDOMEN: Soft, lower abdominal wound midline with no slough tissue no signif icant surrounding redness or foul-smelling drainage EXTREMITIES: No edema of feet. SKIN: No rash, no masses palpable. NEUROLOGICAL: The patient is awake, alert, oriented x3, mood and affect normal. Results CBC & Chem 7: 11/14/22 06:00 11/16/22 06:34 Labs: Abnormal Lab Results - Last 24 Hours (Table) 11/13/22 11/14/22 11/14/22 Range/Units 20:36 11:26 16:18 Sodium (137-145) mmol/L BUN (7-17) mg/dL Glucose (74-99) mg/dL POC Glucose (mg/dL) 182 H 191 H 208 H (70-110) mg/dL Total Protein (6.3-8.2) g/dL Albumin (3.5-5.0) g/dL 11/14/22 11/15/22 11/15/22 Range/Units 20:09 04:20 05:42 Sodium 135 L (137-145) mmol/L BUN 25 H (7-17) mg/dL Glucose 209 H (74-99) mg/dL POC Glucose (mg/dL) 190 H 221 H (70-110) mg/dL Total Protein 6.1 L (6.3-8.2) g/dL Albumin 3.0 L (3.5-5.0) g/dL Assessment and Plan (1) Open abdominal wall wound Current Visit: Yes Status: Acute Code(s): S31.109A - UNSP OPN WND ABD WALL, UNSP Q W/O PENET PERIT CAV, INIT SNOMED Code(s): 935851279 Plan: 1patient with the abdominal wound in this patient who did have a history of diverticulitis requiring diverting colostomy subsequently did have a chronic enterocutaneous fistula s/p surgical repair of the same debridement of abdominal wound which has been left in surgery patient has been afebrile white count has been normal 2-patient to continue with wet-to-dry dressing changes at this point can be transitioned on the related to possible necrosis of the packing of the wound considered to be high risk from wound VAC complication as per discussion with the surgical BOX TENDER hence we will avoid ordering that 3-patient benefit from wound care center referral on discharge We will follow on clinical condition and cultures to further adjust medication if needed Thank you for this consultation we will follow the patient along with you Time with Patient: Greater than 30
[2022-11-16] MEDS: LEVOTHYROXINE 100 MCG TAB PO SCH (05:14)
[2022-11-16 05:48] LABS: Glucose,Whole Blood 229 mg/dL (70-110)
[2022-11-16] MEDS: INSULIN ASPART (NovoLOG) 100 UNIT/ML VIAL SQ SCH ×2 (06:25→12:28)
[2022-11-16 07:54] LABS: African American GFR (CKD) 82 (>60 ml/min/1.73 sqM); Anion Gap 8 mmol/L; Blood Urea Nitrogen 24 mg/dL (7-17); Calcium 8.5 mg/dL (8.4-10.2); Carbon Dioxide 25 mmol/L (22-30); Chloride 101 mmol/L (98-107); Glucose 196 mg/dL (74-99); Non-African American GFR(CKD) 71 (>60 ml/min/1.73 sqM); Phosphorus 3.5 mg/dL (2.5-4.5); Sodium 134 mmol/L (137-145)
[2022-11-16 07:58] LABS: Magnesium 2.1 mg/dL (1.6-2.3); Potassium 4.8 mmol/L (3.5-5.1)
[2022-11-16] MEDS: PIOGLITAZONE 15 MG TAB PO SCH (08:37)
[2022-11-16] MEDS: METOPROLOL TARTRATE 12.5 MG TAB PO SCH (08:37)
[2022-11-16] MEDS: ENOXAPARIN 40 MG/0.4 ML SYRINGE SQ SCH (08:37)
[2022-11-16] MEDS: ASPIRIN 81 MG PO SCH (08:37)
[2022-11-16] MEDS: LACTOBACILLUS ACIDOPH & BULGAR 1 EACH PACKET PO SCH (08:37)
[2022-11-16] MEDS: MULTIVITAMINS, THERA 1 EACH TAB PO SCH (08:37)
[2022-11-16] MEDS: amLODIPine 5 MG TAB PO SCH (08:37)
[2022-11-16] MEDS: DULoxetine HCL 60 MG CAPSULE.DR PO SCH (08:37)
[2022-11-16] MEDS: CHOLECALCIFEROL 25 MCG (1000 IU) TABLET PO SCH (08:38)
[2022-11-16] MEDS: 1: MVI, ADULT NO.4 WITH VIT K 10 ML, TRACE (CONC-1ML/DOSE) 1 ML, SODIUM CHLORIDE 4MEQ/ML IV SCH ×8 (09:22)
[2022-11-16 11:10] LABS: Glucose,Whole Blood 154 mg/dL (70-110)
--- NOTE | 2022-11-16 12:13 | P.PN ---
Subjective Patient is seen in follow-up for acute kidney injury on chronic kidney disease. GFR back to baseline. Off TPN. No vomiting. Tolerating oral intake. Wants to go home. Vital signs are stable. General: No acute distress. HEENT: Head exam is unremarkable. LUNGS: No audible rhonchi or wheezes. HEART: Rate and Rhythm are regular. ABDOMEN: Nontender. Colostomy noted. EXTREMITITES: No edema. Objective - Vital Signs Vital signs: Vital Signs Temp 98.7 F 11/16/22 07:59 Pulse 65 11/16/22 07:59 Resp 15 11/16/22 07:59 BP 129/58 11/16/22 07:59 Pulse Ox 97 11/16/22 07:59 FiO2 Intake & Output 11/15/22 11/16/22 11/16/22 18:59 06:59 18:59 Intake Total 1035.5 Balance 1035.5 Intake: Intake, IV Titration 1035.5 Amount Sodium Chloride 4Meq/ml 1035.5 Vial 44 meq Potassium Acetate 20 meq Calcium Gluconate 1 gm Magnesium Sulfate gm 0.75 gm Sodium Phosphate 9 mmol In Amino Acids 5 %/Dextrose 20 % 1,000 ml @ 90 mls/hr IV .BY DURATION [facility] Rx#: [id number] Other: Voiding Method Toilet Toilet Toilet Diaper Diaper Diaper # Voids 6 2 - Labs CBC & Chem 7: 11/14/22 06:00 11/16/22 06:34 Labs: Abnormal Lab Results - Last 24 Hours (Table) 11/15/22 11/15/22 11/16/22 Range/Units 16:52 21:02 05:46 Sodium (137-145) mmol/L BUN (7-17) mg/dL Glucose (74-99) mg/dL POC Glucose (mg/dL) 189 H 193 H 229 H (70-110) mg/dL 11/16/22 11/16/22 Range/Units 06:34 11:08 Sodium 134 L (137-145) mmol/L BUN 24 H (7-17) mg/dL Glucose 196 H (74-99) mg/dL POC Glucose (mg/dL) 154 H (70-110) mg/dL Assessment and Plan Plan: Assessment: 1. Acute kidney injury mostly prerenal secondary to nonsteroidals. Resolved. 2. Chronic kidney disease stage IIIa with baseline creatinine near 1. Suspect diabetic kidney disease due to proteinuria on UA. Further workup outpatient. 3. Abdominal wall wound on antibiotics. 4. Hypertension with chronic kidney disease. Stable. 5. Diabetes mellitus. Plan: Diet per surgery. Avoid nephrotoxins. Continue to monitor renal function and urine output. Follow-up outpatient 2 weeks post discharge.
--- NOTE | 2022-11-16 12:19 | P.DS ---
Providers Date of admission: 11/07/22 10:44 Attending physician: Parviz Harrison Consults: 11/07/22 10:44 Consult Physician Routine Consulting Provider: Milind Martel Consult Reason/Comments: Medical management Do you want consulting provider notified?: Yes 11/08/22 08:33 Consult Physician Urgent Consulting Provider: Ellen Pickens Consult Reason/Comments: high GFR, pending PICC line placement Do you want consulting provider notified?: Yes 11/15/22 09:30 Consult Physician Routine Consulting Provider: Alexandra Basilio Consult Reason/Comments: wound care for abdominal wound Do you want consulting provider notified?: Yes Primary care physician: Linda Sanders Hospital Course: Discharge diagnosis 1. 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 History of severe diverticulitis and frozen pelvis 3. Diabetes Hospital course This is a 77-year-old female with history of severe diverticulitis. She is status post exploratory laparotomy with colostomy. She is found have a frozen pelvis due to her diverticulitis. 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 Patient is status post debridement of abdominal wall wound and closure of small bowel fistula. Patient was nothing by mouth for 7 days and received TPN for nutrition support. She has tolerated the liquid diet. There is no evidence of bowel contents in her abdominal wound. She's been seen by infectious disease and will continue local wound care outpatient at the wound care center. Home care is also been arranged. She'll be discharged with antibiotics. Her pain is controlled. She is ambulating. She's afebrile. She is stable for discharge. Please refer to chart for any further details. Physician Orthophoto Tech/D[employer]sman note has been reviewed by physician. Signing provider agrees with the documented findings, assessment, and plan of care. Patient Condition at Discharge: Stable Plan - Discharge Summary Discharge Rx Participant: No New Discharge Prescriptions: New Levofloxacin [Levaquin] 500 mg PO DAILY 10 Days #10 tab Continue DULoxetine HCL [Cymbalta] 60 mg PO QAM Baclofen 10 mg PO QID PRN PRN Reason: Muscle Spasm Levothyroxine Sodium [Synthroid] 100 mcg PO QAM Aspirin EC [Ecotrin Low Dose] 81 mg PO DAILY Atorvastatin Calcium [Lipitor] 40 mg PO HS Ubidecarenone [Co Q-10] 200 mg PO DAILY Cranberry Fruit Extract [Cranberry] 500 mg PO DAILY L.acidoph,Paracasei, B.lactis [Probiotic] 1 cap PO BID oxyCODONE HCL [oxyCODONE HCL (IR)] 10 mg PO Q6H PRN 3 Days #12 tab PRN Reason: Pain Metoprolol Tartrate [Lopressor] 12.5 mg PO BID Pioglitazone [Actos] 15 mg PO DAILY Docusate Sodium [Dok] 200 mg PO BID Mucinex (Unknown Dose) 1 dose PO BID Cholecalciferol [Vitamin D3 (25 Mcg = 1000 Iu)] 50 mcg PO DAILY amLODIPine [Norvasc] 5 mg PO QAM Multivitamins, Thera [Multivitamin (formulary)] 1 tab PO DAILY metFORMIN HCL ER [Glucophage XR] 500 mg PO BID Benzonatate [Tessalon Perles] 200 mg PO TID PRN PRN Reason: Cough Dulaglutide [Trulicity] 4.5 mg SQ Q7D Alpha Lipoic Acid 600 mg PO DAILY Discontinued Cefdinir 300 mg PO BID No Action Insulin NPH Hum/Reg Insulin Hm [NovoLIN 70-30 100 UNIT/ML VIAL] 10 - 14 unit SQ AC-BRKFST Insulin NPH Hum/Reg Insulin Hm [NovoLIN 70-30 100 UNIT/ML VIAL] 16 - 18 unit SQ AC-SUPPER Furosemide [Lasix] 20 mg PO DAILY Discharge Medication List Baclofen 10 mg PO QID PRN 01/06/16 [History] DULoxetine HCL [Cymbalta] 60 mg PO QAM 01/06/16 [History] Insulin NPH Hum/Reg Insulin Hm [NovoLIN 70-30 100 UNIT/ML VIAL] 10 - 14 unit SQ AC-BRKFST 03/17/16 [History] Insulin NPH Hum/Reg Insulin Hm [NovoLIN 70-30 100 UNIT/ML VIAL] 16 - 18 unit SQ AC-SUPPER 03/17/16 [History] Levothyroxine Sodium [Synthroid] 100 mcg PO QAM 07/25/17 [History] Aspirin EC [Ecotrin Low Dose] 81 mg PO DAILY 12/31/18 [History] Atorvastatin Calcium [Lipitor] 40 mg PO HS 12/31/18 [History] Ubidecarenone [Co Q-10] 200 mg PO DAILY 08/11/19 [History] Cholecalciferol [Vitamin D3 (25 Mcg = 1000 Iu)] 50 mcg PO DAILY 03/07/22 [History] Cranberry Fruit Extract [Cranberry] 500 mg PO DAILY 03/07/22 [History] L.acidoph,Paracasei, B.lactis [Probiotic] 1 cap PO BID 03/07/22 [History] oxyCODONE HCL [oxyCODONE HCL (IR)] 10 mg PO Q6H PRN 3 Days #12 tab 03/23/22 [Rx] Alpha Lipoic Acid 600 mg PO DAILY 10/26/22 [History] Benzonatate [Tessalon Perles] 200 mg PO TID PRN 10/26/22 [History] Docusate Sodium [Dok] 200 mg PO BID 10/26/22 [History] Dulaglutide [Trulicity] 4.5 mg SQ Q7D 10/26/22 [History] Furosemide [Lasix] 20 mg PO DAILY 10/26/22 [History] Metoprolol Tartrate [Lopressor] 12.5 mg PO BID 10/26/22 [History] Multivitamins, Thera [Multivitamin (formulary)] 1 tab PO DAILY 10/26/22 [History] Pioglitazone [Actos] 15 mg PO DAILY 10/26/22 [History] amLODIPine [Norvasc] 5 mg PO QAM 10/26/22 [History] metFORMIN HCL ER [Glucophage XR] 500 mg PO BID 10/26/22 [History] Mucinex (Unknown Dose) 1 dose PO BID 10/30/22 [History] Levofloxacin [Levaquin] 500 mg PO DAILY 10 Days #10 tab 11/16/22 [Rx] Follow up Appointment(s)/Referral(s): [facility] Nurse, [NON-STAFF] - As Needed Parviz Harrison MD [STAFF PHYSICIAN] - 11/17/22 9:45 am [facility] [NON-STAFF] - 1 Week Activity/Diet/Wound Care/Special Instructions: No driving while taking OxyIR No lifting over 10 pounds Shower daily. No soaking or tub baths for 2 weeks Very light activity until you are reevaluated at your follow up appointment with your surgeon Wet to dry dressing changes daily with Kerlix to abdominal wound and cover with ABD Continue Full liquid diet until seen by surgeon Discharge Disposition: HOME WITH HOME HEALTH SERVICES
[2022-11-16] MEDS: LEVOFLOXACIN 250MG-D5W PMX 250 MG in DEXTROSE/WATER 1 50ML.BAG IVPB SCH (12:27)
[2022-11-16 13:41] VITALS: BP 141/57; PULSE 64; RESP 16; TEMP 97.4
--- NOTE | 2022-11-16 13:47 | P.PN ---
Subjective Progress Note Date: 11/16/22 Principal diagnosis: Abdominal wound Patient is a 77-year-old female presenting to the hospital 11/07/2022 for evaluation of chronic draining sinus at the lower end of her scar in this patient who did have a history of diverticulitis status post diverting colostomy in the past patient was taken to the OR on 11/07/2022 status postdebridement of the abdominal wall wound closure with small bowel fistula, with the open abdominal wound post surgery. On today's evaluation that is 11/16/2022, patient denies having any fever or any chills. Denies having any chest pain shortness of breath or cough no nausea no vomiting and denies significant abdominal pain and no diarrhea has been reported Objective - Vital Signs Vital signs: Vital Signs Temp 98.7 F 11/16/22 07:59 Pulse 65 11/16/22 07:59 Resp 15 11/16/22 07:59 BP 129/58 11/16/22 07:59 Pulse Ox 97 11/16/22 07:59 FiO2 Intake & Output 11/15/22 11/16/22 11/16/22 18:59 06:59 18:59 Intake Total 1035.5 Balance 1035.5 Intake: Intake, IV Titration 1035.5 Amount Sodium Chloride 4Meq/ml 1035.5 Vial 44 meq Potassium Acetate 20 meq Calcium Gluconate 1 gm Magnesium Sulfate gm 0.75 gm Sodium Phosphate 9 mmol In Amino Acids 5 %/Dextrose 20 % 1,000 ml @ 90 mls/hr IV .BY [facility] Rx#: [id number] Other: Voiding Method Toilet Toilet Toilet Diaper Diaper Diaper # Voids 6 2 - Exam GENERAL DESCRIPTION: An elderly female up in bed in no distress RESPIRATORY SYSTEM: Unlabored breathing , decreased breath sounds at bases HEART: S1 S2 regular rate and rhythm , ABDOMEN: Soft , midline wound is currently dressed EXTREMITIES: No edema feet - Labs CBC & Chem 7: 11/14/22 06:00 11/16/22 06:34 Labs: Abnormal Lab Results - Last 24 Hours (Table) 11/15/22 11/15/22 11/15/22 Range/Units 11:32 16:52 21:02 Sodium (137-145) mmol/L BUN (7-17) mg/dL Glucose (74-99) mg/dL POC Glucose (mg/dL) 178 H 189 H 193 H (70-110) mg/dL 11/16/22 11/16/22 11/16/22 Range/Units 05:46 06:34 11:08 Sodium 134 L (137-145) mmol/L BUN 24 H (7-17) mg/dL Glucose 196 H (74-99) mg/dL POC Glucose (mg/dL) 229 H 154 H (70-110) mg/dL Assessment and Plan (1) Open abdominal wall wound Current Visit: Yes Status: Acute Code(s): S31.109A - UNSP OPN WND ABD WALL, UNSP Q W/O PENET PERIT CAV, INIT SNOMED Code(s): 561609745 Plan: 1patient with the abdominal wound in this patient who did have a history of diverticulitis requiring diverting colostomy subsequently 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
--- NOTE | 2022-11-16 20:10 | P.PN ---
Progress Note - Text Progress Note Date: 11/16/22 Hospital course: This is a patient who has a chronic abdominal wound mood due to small bowel fis munir. Underwent debridement of abdominal wall wound with closure of the small bowel fistula. 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 Patient be started on TPN and lipids. Remains nothing by mouth. November 10: I assumed care of the patient today from [facility]. Reclining in bed. Requesting her home pain medications to be resumed. Getting TPN and lipids. Nothing by mouth. Ostomy bag is working. Bit of a congested cough. No fever no chills. Breathing stable. November 11: Getting TPN and lipids. Minimal abdominal discomfort. Brown stool in the ostomy bag. Congested cough. No expectoration. Back pain better. November 12: TPN and lipids. Remains nothing by mouth. Ostomy bag putting out stool. No pain. IV Levaquin per Dr. Harrison. November 13: Getting TPN and lipids. Remains nothing by mouth. Putting out stool. No abdominal pain. IV Levaquin. November 14: Patient somewhat upset that she still has to stay in the hospital. Reassured. Explained. Continues with TPN and lipids. Levaquin. Has been up in a chair. Patient is missing her cat. His started on clear liquids by surgery November 15: Patient passed a full liquid diet. No abdominal pain. On TPN and lipids. Levaquin. Surgical team is looking into possible discharge tomorrow. They have consulted ID for antibiotics. November 16: Patient on full liquid diet. Seen by Dr. Harrison's team. Patient being discharged today. On Levaquin. Resume home dose of insulin. Discussed with patient Current medications reviewed On examination: VITAL SIGNS: 98.7, 65, 15, 129/58, 97% room air GENERAL APPEARANCE: Reclining comfortable HEENT: Normal external appearance of nose and ear. Oral cavity normal EYES: Pupils equal. Conjunctiva normal. NECK: JVD not raised. Mass not palpable. RESPIRATORY: Respiratory effort normal. Lungs clear to auscultation. CARDIOVASCULAR: First and second sounds normal. No edema. ABDOMEN: Soft. Liver and spleen not palpable. No tenderness. No mass palpable. Dressing over the wound. Left-sided colostomy bag with stool PSYCHIATRY: Alert and oriented x3. Mood and affect normal. 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 Dressing changes-Dr. Harrison. Full liquid diet discharged on 10 days of Levaquin, per ID. Wet to dry dressing. -TPN and lipids -Chronic diverticulitis with frozen pelvis -Diabetes mellitus type 2, chronically on insulin and oral hypoglycemic Follow Accu-Cheks and sliding scale. Trulicity. Resume home dose of insulin -Depression Cymbalta -Hypothyroid Synthroid -Essential hypertension Lopressor, amlodipine -Chronic low back pain from arthritis oxycodone Discussed with the patient.
== END 2022-11-16 14:56 | disposition home health service (06) | DRG 330 ==
LOC: OR 07:19 → 4SSUR 10:18 → OR 10:44 → 4SSUR 10:44
PROVIDERS: ADMIT Surgery; ATTEND Surgery
PROC: 0JB80ZZ Excision of Abdomen Subcutaneous Tissue and Fascia, Open Approach (ICD-10-PCS; principal; 2022-11-07 07:40)
PROC: 0DQ80ZZ Repair Small Intestine, Open Approach (ICD-10-PCS; principal; 2022-11-07 07:40)
PROC: 02HV33Z Insertion of Infusion Device into Superior Vena Cava, Percutaneous Approach (ICD-10-PCS; 2022-11-09)
PROC: 3E0436Z Introduction of Nutritional Substance into Central Vein, Percutaneous Approach (ICD-10-PCS; 2022-11-09)
DX: K63.2 Fistula of intestine (principal); F31.30 Bipolar disorder, current episode depressed, mild or moderate severity, unspecified; K57.92 Diverticulitis of intestine, part unspecified, without perforation or abscess without bleeding; N17.9 Acute kidney failure, unspecified; K66.8 Other specified disorders of peritoneum; E11.22 Type 2 diabetes mellitus with diabetic chronic kidney disease; Z43.3 Encounter for attention to colostomy; E11.40 Type 2 diabetes mellitus with diabetic neuropathy, unspecified; I12.9 Hypertensive chronic kidney disease with stage 1 through stage 4 chronic kidney disease, or unspecified chronic kidney disease; N18.31 Chronic kidney disease, stage 3a; Z79.4 Long term (current) use of insulin; T39.395A Adverse effect of other nonsteroidal anti-inflammatory drugs [NSAID], initial encounter; J45.909 Unspecified asthma, uncomplicated; E78.5 Hyperlipidemia, unspecified; I25.10 Atherosclerotic heart disease of native coronary artery without angina pectoris; E03.9 Hypothyroidism, unspecified; K59.00 Constipation, unspecified; G89.29 Other chronic pain; M54.50 Low back pain, unspecified; M19.90 Unspecified osteoarthritis, unspecified site; R32 Unspecified urinary incontinence; H91.90 Unspecified hearing loss, unspecified ear; Z79.82 Long term (current) use of aspirin; Z79.85 Long-term (current) use of injectable non-insulin antidiabetic drugs; Z79.890 Hormone replacement therapy; Z79.2 Long term (current) use of antibiotics; Z79.84 Long term (current) use of oral hypoglycemic drugs; Z79.899 Other long term (current) drug therapy; Z87.891 Personal history of nicotine dependence; Z96.653 Presence of artificial knee joint, bilateral; Z85.43 Personal history of malignant neoplasm of ovary; Z87.01 Personal history of pneumonia (recurrent); Z87.440 Personal history of urinary (tract) infections; Z86.14 Personal history of Methicillin resistant Staphylococcus aureus infection; Z86.19 Personal history of other infectious and parasitic diseases; Z88.1 Allergy status to other antibiotic agents; Z88.0 Allergy status to penicillin
CPT/HCPCS: 36573; 80048; 80053; 81001; 82330; 83735; 84100; 84478; 85025; 87086; 88304

== ENCOUNTER 2022-11-28 13:34 | Emergency (ER) | payer MEDICARE ==
[2022-11-28 14:07] VITALS: PULSE 64
--- NOTE | 2022-11-28 16:16 | ED ---
Wound/Laceration HPI - General Chief Complaint: Wound/Laceration Stated Complaint: abd wound Time Seen by Provider: 11/28/22 15:59 Source: patient, RN notes reviewed Mode of arrival: ambulatory Limitations: no limitations - History of Present Illness Initial Comments: This is a 77-year-old female wo presents to the emergency department for postop concerns. States that on 11/09 she had repair of a small bowel fistula that had been causing a chronic abdominal wall wound. She was told that they were unsure if this would be successful long-term. She has been on a wound VAC since being discharged. States that there has been dried brown drainage on her bandages. However, today, the wound was draining brown material constantly and it would not stop. The material was also noted to be bubbling. There was concern that there was stool leaking from the wound. Her home care nurse called Dr. Harrison and she was instructed her to come to the emergency department. Denies any abdominal pain or fevers. She has had some nausea and a decreased appetite, which she states is what she was experiencing before being diagnosed with a fistula. Denies any fevers, chills, sore throat, cough, dyspnea, chest pain, palpitations, abdominal pain, nausea, vomiting, diarrhea, back pain, or headaches. - Related Data Home Medications Medication Instructions Recorded Confirmed Baclofen 10 mg PO QID PRN 01/06/16 11/28/22 DULoxetine HCL [Cymbalta] 60 mg PO DAILY 01/06/16 11/28/22 Insulin NPH Hum/Reg Insulin Hm See Protocol SQ AC-BID 03/17/16 11/28/22 [NovoLIN 70-30 100 UNIT/ML VIAL] Levothyroxine Sodium [Synthroid] 100 mcg PO DAILY 07/25/17 11/28/22 Aspirin EC [Ecotrin Low Dose] 81 mg PO DAILY 12/31/18 11/28/22 Atorvastatin Calcium [Lipitor] 40 mg PO HS 12/31/18 11/28/22 Ubidecarenone [Co Q-10] 200 mg PO DAILY 08/11/19 11/28/22 Cholecalciferol [Vitamin D3 (25 50 mcg PO DAILY 03/07/22 11/28/22 Mcg = 1000 Iu)] Cranberry Fruit Extract [Cranberry] 500 mg PO DAILY 03/07/22 11/28/22 L.acidoph,Paracasei, B.lactis 1 cap PO BID 03/07/22 11/28/22 [Probiotic] Alpha Lipoic Acid 600 mg PO DAILY 10/26/22 11/28/22 Benzonatate [Tessalon Perles] 200 mg PO TID PRN 10/26/22 11/28/22 Docusate Sodium [Dok] 200 mg PO BID 10/26/22 11/28/22 Dulaglutide [Trulicity] 4.5 mg SQ WE 10/26/22 11/28/22 Furosemide [Lasix] 20 mg PO DAILY 10/26/22 11/28/22 Metoprolol Tartrate [Lopressor] 12.5 mg PO BID 10/26/22 11/28/22 Multivitamins, Thera [Multivitamin 1 tab PO DAILY 10/26/22 11/28/22 (formulary)] Pioglitazone [Actos] 15 mg PO DAILY 10/26/22 11/28/22 amLODIPine [Norvasc] 5 mg PO DAILY 10/26/22 11/28/22 metFORMIN HCL ER [Glucophage XR] 500 mg PO BID 10/26/22 11/28/22 Levofloxacin [Levaquin] 500 mg PO HS 11/28/22 11/28/22 Turmeric Root Extract [Turmeric] 500 mg PO DAILY 11/28/22 11/28/22 Previous Rx's Medication Instructions Recorded oxyCODONE HCL [oxyCODONE HCL (IR)] 10 mg PO Q6H PRN 3 Days #12 tab 03/23/22 Allergies Allergy/AdvReac Type Severity Reaction Status Date / Time adhesive Allergy blisters Verified 11/28/22 18:59 amoxicillin Allergy Rash/Hives Verified 11/28/22 18:59 ciprofloxacin [From Cipro] AdvReac Dyspnea Verified 11/28/22 18:59 ciprofloxacin HCl AdvReac Dyspnea Verified 11/28/22 18:59 [From Cipro] Review of Systems ROS Statement: Those systems with pertinent positive or pertinent negative responses have been documented in the HPI. ROS Other: All systems not noted in ROS Statement are negative. Past Medical History Past Medical History: Asthma, Coronary Artery Disease (CAD), Cancer, Diabetes Mellitus, Hearing Disorder / Deafness, Hyperlipidemia, Hypertension, Neurologic Disorder, Osteoarthritis (OA), Pneumonia, Renal Disease, Thyroid Disorder Additional Past Medical History / Comment(s): Hx Pneumonia and Bronchitis. Hx right ovarian cancer had chemo - finished October 2017. 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 Has colostomy. Neuropathy in hands and feet. Hard of hearing. Diverticulosis. History of Any Multi-Drug Resistant Organisms: ESBL, MRSA Date of last positivie culture/infection: 08/31/22-MRSA; ESBL-05/26/19 MDRO Source:: Abdomen-MRSA; Urine-ESBL Past Surgical History: Appendectomy, Bowel Resection, Cholecystectomy, Hysterectomy, Joint Replacement, Orthopedic Surgery, Tonsillectomy Additional Past Surgical History / Comment(s): Exploratory laparotomy with ovarian tumor removal and lysis of adhesions, bilateral knee replacements, bilateral cataract removals, D&C/, calcium clot left eye, non functioning neurostimlator removed, glaucoma surgery, colonoscopy, colostomy 03/20/2022, trigger finger release. Past Anesthesia/Blood Transfusion Reactions: No Reported Reaction Additional Past Anesthesia/Blood Transfusion Reaction / Comment(s): Family hx unknown, patient was adopted. Past Psychological History: Bipolar, Depression Smoking Status: Former smoker Past Alcohol Use History: Rare Past Drug Use History: None Reported - Past Family History Father History Unknown: Yes Family Medical History: Unable to Obtain Additional Family Medical History / Comment(s): Pt is adopted and does not know parents medical history. General Exam Limitations: no limitations General appearance: alert, in no apparent distress Head exam: Present: atraumatic, normocephalic, normal inspection Respiratory exam: Present: normal lung sounds bilaterally. Absent: respiratory distress, wheezes, rales, rhonchi, stridor Cardiovascular Exam: Present: regular rate, normal rhythm, normal heart sounds. Absent: systolic murmur, diastolic murmur, rubs, gallop, clicks GI/Abdominal exam: Present: other (Lower abdominal vertical incision without any active drainage. There is dried blood and brown material on the packing.) Neurological exam: Present: alert, oriented X3, CN II-XII intact Psychiatric exam: Present: normal affect, normal mood Skin exam: Present: warm, dry, intact, normal color. Absent: rash Course Vital Signs 05/30/23 05/30/23 05/30/23 14:02 17:58 21:38 Temperature 98.3 F 99.5 F Pulse Rate 64 64 Respiratory 18 17 20 Rate Blood Pressure 151/70 134/57 O2 Sat by Pulse 97 99 98 Oximetry Medical Decision Making - Medical Decision Making This is a 77-year-old female who presents to the emergency department for concerns of a postoperative complication. Was pt. sent in by a medical professional or institution? @ -Yes, Dr. Harrison Did you speak to anyone other than the patient for history? @ -Yes, Dr. Bowers, who spoke with Dr. Harrison, who requested that the patient be transferred to another facility due to the complexity of her case. We then spoke with Dr. Patel at [facility], who accepts the patient for transfer. Did you review nursing and triage notes? @ -Yes, and I agree, it is accurate with regards to the patient's symptoms. Were old charts reviewed? @ -Yes, operative report from 11/07 and discharge summary from 11/16. Differential Diagnosis? @ -Differential Incision Drainage: Infection, serous fluid, stool, this is not meant to be an all-inclusive list. EKG interpreted by me (3pts min.)? @ -Not obtained X-rays interpreted by me (1pt min.)? @ -Not obtained CT interpreted by me (1pt min.)? @ -Computed tomography scan of the abdomen and pelvis obtained, my interpretation reveals air within the small bowel loops. U/S interpreted by me (1pt. min.)? @ -Not obtained What testing was considered but not performed? (CT, X-rays, U/S, labs)? Why? @ -Not obtained What meds were considered but not given? Why? @ -Not obtained Did you discuss the management of the patient with other professionals? @ -No Did you reconcile home meds? @ -No Was smoking cessation discussed for >3mins.? @ -No Was critical care preformed (if so, how long)? @ -No Were there social determinants of health that impacted care today? How? (Homelessness, low income, unemployed, alcoholism, drug addiction, transportation, low edu. Level, literacy, decrease access to med. care, fdc, rehab)? @ -No Was there de-escalation of care discussed even if they declined? (Discuss DNR or withdrawal of care, Hospice)? @ -No What co-morbidities impacted this encounter? (DM, HTN, Smoking, COPD, CAD, Cancer, CVA, Hep., AIDS, mental health diagnosis, sleep apnea, morbid obesity)? @ -DM Was patient admitted / discharged? @ -Transferred to [facility]. Lab work obtained revealing slightly decreased kidney function when compared with 12 days ago. Lab work was otherwise nonactionable including no evidence of leukocytosis or elevated lactic acid. Patient continues to remain asymptomatic aside from mild intermittent nausea. Computed tomography scan of the abdomen and pelvis obtained revealing phlegmon formation along the anterior abdominal wall incision and air within the small bowel loops. ED attending, Dr. Bowers, examined the patient's incision with me, and while there was no active drainage, she did have dried brown material on her wound packing. I spoke with Dr. Harrison, who requests that the patient be transferred to another facility for a higher level of care due to the complexity of the patient's case. I spoke with an ED physician at [facility], who requested that Dr. Harrison speak with one of their general surgeons directly. Dr. Harrison spoke with the surgeon at [facility], and she was accepted as an ER to ER transfer. Dr. Patel is the accepting provider. Undiagnosed new problem with uncertain prognosis? @ -None Drug Therapy requiring intensive monitoring for toxicity (Heparin, Nitro, Insulin, Cardizem)? @ -None Were any procedures done? @ -None Diagnosis/symptom? @ -Small bowel fistula, postoperative complication Acute, or Chronic, or Acute on Chronic? @ -Acute Uncomplicated (without systemic symptoms) or Complicated (systemic symptoms)? @ -Complicated Side effects of treatment? @ -None Exacerbation, Progression, or Severe Exacerbation] @ -Not applicable Poses a threat to life or bodily function? @ -Yes This case was discussed in detail with the attending ED physician, Dr. Bowers. Presentation, findings, and treatment plan discussed in detail as well. - Lab Data Result diagrams: 11/28/22 16:07 11/28/22 16:07 Lab Results 11/28/22 11/28/22 11/28/22 Range/Units 16:07 16:07 16:07 WBC 10.6 (3.8-10.6) k/uL RBC 4.89 (3.80-5.40) m/uL Hgb 13.7 (11.4-16.0) gm/dL Hct 42.8 (34.0-46.0) % MCV 87.5 (80.0-100.0) fL MCH 28.0 (25.0-35.0) pg MCHC 32.1 (31.0-37.0) g/dL RDW 14.0 (11.5-15.5) % Plt Count 375 (150-450) k/uL MPV 7.9 Neutrophils % 72 % Lymphocytes % 15 % Monocytes % 7 % Eosinophils % 3 % Basophils % 0 % Neutrophils # 7.7 (1.3-7.7) k/uL Lymphocytes # 1.6 (1.0-4.8) k/uL Monocytes # 0.8 (0-1.0) k/uL Eosinophils # 0.4 (0-0.7) k/uL Basophils # 0.0 (0-0.2) k/uL Sodium 138 (137-145) mmol/L Potassium 4.9 (3.5-5.1) mmol/L Chloride 98 (98-107) mmol/L Carbon Dioxide 31 H (22-30) mmol/L Anion Gap 9 mmol/L BUN 31 H (7-17) mg/dL Creatinine 1.27 H (0.52-1.04) mg/dL Est GFR (CKD-EPI)AfAm 47 (>60 ml/min/1.73 sqM) Est GFR (CKD-EPI)NonAf 41 (>60 ml/min/1.73 sqM) Glucose 138 H (74-99) mg/dL Plasma Lactic Acid Konstantin 1.7 (0.7-2.0) mmol/L Calcium 9.5 (8.4-10.2) mg/dL Total Bilirubin 0.4 (0.2-1.3) mg/dL AST 23 (14-36) U/L ALT 17 (4-34) U/L Alkaline Phosphatase 133 H (38-126) U/L C-Reactive Protein 0.8 (<1.0) mg/dL Total Protein 7.5 (6.3-8.2) g/dL Albumin 3.9 (3.5-5.0) g/dL - Radiology Data Radiology results: report reviewed, image reviewed Disposition Clinical Impression: Small bowel fistula, Postoperative complication Disposition: OTHER INSTITUTION NOT DEFINED Referrals: Linda Sanders MD [Primary Care Provider] - 1-2 days - Out of Hospital Transfer - Req. Specs Out of Hospital Transfer - Requested Specifics: Other Emergency Center ([facility]
[2022-11-28 16:37] LABS: Basophils % (A) 0 %; Eosinophils # (A) 0.4 k/uL (0-0.7); Eosinophils % (A) 3 %; HCT 42.8 % (34.0-46.0); HGB 13.7 gm/dL (11.4-16.0); Lymphocytes # (A) 1.6 k/uL (1.0-4.8); Lymphocytes % (A) 15 %; MCHC 32.1 g/dL (31.0-37.0); MCV 87.5 fL (80.0-100.0); Mean Platelet Volume 7.9; Monocytes # (A) 0.8 k/uL (0-1.0); Monocytes % (A) 7 %; Neutrophils # (A) 7.7 k/uL (1.3-7.7); Neutrophils % (A) 72 %; Platelet Count 375 k/uL (150-450); RBC 4.89 m/uL (3.80-5.40); WBC 10.6 k/uL (3.8-10.6)
[2022-11-28 16:57] LABS: Albumin 3.9 g/dL (3.5-5.0); C Reactive Protein 0.8 mg/dL (<1.0); Calcium 9.5 mg/dL (8.4-10.2); Potassium 4.9 mmol/L (3.5-5.1); Total Bilirubin 0.4 mg/dL (0.2-1.3); Total Protein 7.5 g/dL (6.3-8.2)
--- NOTE | 2022-11-28 17:54 | CT ---
EXAMINATION TYPE: CT abdomen pelvis wo con DATE OF EXAM: 11/28/2022 COMPARISON: 05/24/2022 INDICATION: abdominal pain at recent surgical site DLP: 1323.4 mGycm, Automated exposure control for dose reduction was used. CONTRAST: 0 mL of Isovue 300. Study performed without Oral Contrast TECHNIQUE: Axial images were obtained from above the diaphragm to the pubic rami in the axial plane a t 5 mm thick sections. Reconstructed images are reviewed on the computer in the coronal plane. FINDINGS: Limited CT sections are obtained the lung bases. The lung bases are clear. CT ABDOMEN: Liver: Normal Spleen: Normal Pancreas: Normal Adrenal glands: Right adrenal gland is enlarged and contains several calcifications. This measures 4. 7 x 3.3 cm. Prior measurement 4.5 x 2.7 cm. Consider prior hemorrhage. Short-term follow-up however i s recommended Gallbladder: Surgically absent Kidneys: No hydronephrosis is evident. 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 There is a punctate calcification in the superior pole right kidney measuring 0.3 cm. No cys ts are present. Aorta: Vascular calcification is within the aorta. Inferior vena cava: Normal. CT PELVIS: There appears be a phlegmon at the inferior abdominal incision level measuring 3.6 x 4.0 c m. Small amount of air is present. Some of this air may be related to loops of bowel extending toward s this area. The bowel is difficult to distinguish from phlegmon. Abscess formation is not clearly id entified. Fecal debris is through the colon. Fecal debris is in the ostomy bowel. The ostomy appears intact. Re ctal cyst dominant appears normal this study is without oral contrast limiting bowel evaluation Appendix: Not identified. There appears to be prior right lower quadrant surgery on bowel. Urinary bladder: Some wall thickening is not excluded. This is incompletely distended which may limit the evaluation. Genitourinary structures: Uterus and ovaries are not identified. Osseous structures: No suspicious lytic or sclerotic lesions. There is a sclerotic area along the sup erior endplate of L3. This was present previously. IMPRESSIONS: 1. There appears to be phlegmon formation along the anterior wall at the incision site. Discrete abs cess is not identified. There is some air present suspected to be within loops of bowel. Follow-up is recommended. 2. Heterogenous appearance to the mildly enlarged right adrenal gland. Follow-up is recommended.
[2022-11-28 17:59] VITALS: BP 134/57; TEMP 99.5
[2022-11-28 21:39] VITALS: RESP 20
== END 2022-11-28 21:39 | disposition other institution (70) ==
LOC: EC 13:34
DX: T81.9XXA Unspecified complication of procedure, initial encounter (principal); K56.609 Unspecified intestinal obstruction, unspecified as to partial versus complete obstruction; J45.909 Unspecified asthma, uncomplicated; I25.10 Atherosclerotic heart disease of native coronary artery without angina pectoris; E11.9 Type 2 diabetes mellitus without complications; E78.5 Hyperlipidemia, unspecified; I10 Essential (primary) hypertension; M19.90 Unspecified osteoarthritis, unspecified site; E07.9 Disorder of thyroid, unspecified; F32.A Depression, unspecified; Z87.891 Personal history of nicotine dependence; Z88.0 Allergy status to penicillin; Z88.1 Allergy status to other antibiotic agents; Z91.048 Other nonmedicinal substance allergy status; Z79.4 Long term (current) use of insulin; Z79.84 Long term (current) use of oral hypoglycemic drugs; Z79.899 Other long term (current) drug therapy; Z79.82 Long term (current) use of aspirin
CPT/HCPCS: 36415; 74176; 80053; 83605; 85025; 86140; 99285

== ENCOUNTER → 2022-12-18 | Outpatient (CLI) | payer MEDICARE ==
[2022-12-18 11:53] LABS: African American GFR (CKD) 54 (>60 ml/min/1.73 sqM); Blood Urea Nitrogen 29 mg/dL (7-17); Non-African American GFR(CKD) 47 (>60 ml/min/1.73 sqM)
--- NOTE | 2022-12-18 13:32 | CT ---
EXAMINATION TYPE: CT ChestAbdPelvis w con DATE OF EXAM: 12/18/2022 COMPARISON: 11/28/2022 HISTORY: f/u colon and ovarian ca CT DLP: 2321.4 mGycm CONTRAST: CT scan of the chest, abdomen and pelvis is performed with Oral Contrast and with IV Contrast, patien t injected with 80cc mL of Isovue 300. CT Chest: LUNGS: The lungs are clear and free of infiltrate or atelectasis. No pulmonary nodule or mass is det ected. Mild scattered subpleural fibrosis. No sizable pleural effusion seen. MEDIASTINUM: Thoracic aorta is of normal caliber. The heart is not enlarged. No evidence for media stinal mass or adenopathy. HILAR STRUCTURES: No evidence for mass. No hilar adenopathy is appreciated. OTHER: No significant abnormality. CONTRAST CT ABDOMEN AND PELVIS FINDINGS: LIVER/GB: The gallbladder is surgically absent. No space occupying hepatic lesion. Biliary tree is of normal caliber. PANCREAS: No inflammation. No distinct mass. SPLEEN: No splenic enlargement. No lesion seen. ADRENALS: Right adrenal gland nodule is redemonstrated which demonstrates foci of fat and calcificati ons and measures 4.6 x 3.3 cm versus 4.6 x 3.3 cm previously KIDNEYS/BLADDER: No hydronephrosis. No nephrolithiasis. No distinct renal mass. Urinary bladder is not ideally distended although there is wall thickening. Correlate for underlying cystitis. BOWEL: Left-sided colostomy is redemonstrated. Moderate fecal stasis seen. GENITAL ORGANS: The uterus appears surgically absent. No ovarian or adnexal masses present. LYMPH NODES: No greater than 1cm abdominal or pelvic lymph nodes are appreciated. AORTA: No significant abnormality. OSSEOUS STRUCTURES: T12 compression fracture are redemonstrated. Degenerative changes lumbar spine. G rade 1 anterolisthesis L4 and L5. OTHER: No significant additional abnormality is seen. IMPRESSION: 1. No evidence for adenopathy or metastatic disease this time. 2. 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 3. Left-sided ostomy. 4. Postsurgical changes of hysterectomy and bilateral oophorectomy. No evidence for recurrent or resi dual mass at this time. 5. Urinary bladder thickening.
== END | disposition home or self-care (01) ==
LOC: RADCTMAIN 11:16
PROVIDERS: ATTEND Internal Medicine Hematology & Oncology
DX: Z03.89 Encounter for observation for other suspected diseases and conditions ruled out (principal); C56.1 Malignant neoplasm of right ovary; E27.9 Disorder of adrenal gland, unspecified; Z90.710 Acquired absence of both cervix and uterus; Z90.722 Acquired absence of ovaries, bilateral; N32.89 Other specified disorders of bladder
CPT/HCPCS: 82565; 84520; 71260; 74177; 36415; Q9967

== ENCOUNTER → 2023-05-29 | Outpatient (CLI) | payer MEDICARE ==
--- NOTE | 2023-05-29 14:07 | CT ---
EXAMINATION TYPE: CT shoulder LT wo con DATE OF EXAM: 05/29/2023 COMPARISON: None HISTORY: pre-op left total shoulder CT DLP: 525.[address] of the left shoulder with reconstruction imaging. TECHNIQUE: Unenhanced CT of the left shoulder was performed with bone and soft tissue window settings submitted in the axial coronal and sagittal planes. At a separate workstation 3-D TR imaging was ob tained. FINDINGS: Marked degenerative narrowing involving the glenohumeral joint space with subchondral sclerosis and s ubchondral cyst formation. There is bony remodeling of the glenoid and humeral head. Extensive spur f ormation about the humeral head stenting into the subacromial region resulting in impingement. Modera te AC joint arthropathy. I do not see evidence for acute fracture. The left lung is clear as visualiz ed. Joint effusion noted. IMPRESSION: 1. Advanced osteoarthritis about the left shoulder joint.
== END | disposition home or self-care (01) ==
LOC: RADCTMAIN 13:10
PROVIDERS: ATTEND Orthopaedic Surgery Hand Surgery
DX: Z01.818 Encounter for other preprocedural examination (principal); M19.012 Primary osteoarthritis, left shoulder

== ENCOUNTER → 2023-06-12 | Outpatient (CLI) | payer MEDICARE | END | disposition home or self-care (01) | LOC: LABWHC1 14:48 | PROVIDERS: ATTEND Internal Medicine | DX: Z01.812 Encounter for preprocedural laboratory examination (principal) | CPT/HCPCS: 87070 ==

== ENCOUNTER 2023-06-18 10:52 | Day surgery (SDC) | payer MEDICARE ==
[2023-06-13 09:21] VITALS: BMI 38.9
[~2023-06-18 10:52] MED LIST changes: +CLINDAMYCIN 900 MG in DEXTROSE 5% IN WATER 50 ML IVPB PRN; +DEXAMETHASONE SOD PHOSPHATE 4 MG/ML 1 ML VIAL IV ONE; +GABAPENTIN 300 MG CAP PO PRN; +HYDROmorphone 0.5 MG/0.5 ML SYRINGE IVP PRN; +LIDOCAINE 1% (10MG/ML) FOR IV START INTRADERMA PRN; +MELOXICAM 7.5 MG TAB PO PRN; +MIDAZOLAM 2 MG/2 ML VIAL IV PRN; +ONDANSETRON 4 MG/2 ML VIAL IVP PRN; -Pre Op ABX Message 1 EACH MISC MISCELLANE ONE; +fentaNYL (PF) 50 MCG/ML 2 ML AMP IV PRN
[2023-06-18] MEDS ORDERED: LACTATED RINGERS 1,000 ML IV ONE ×2 (11:30→15:35)
[2023-06-18 11:58] LABS: Glucose,Whole Blood 242 mg/dL (70-110)
[2023-06-18] MEDS ORDERED: MIDAZOLAM 2 MG/2 ML VIAL IVP ONE (12:14)
[2023-06-18] MEDS ORDERED: INSULIN ASPART (NovoLOG) 100 UNIT/ML VIAL SQ ONE ×2 (12:28→16:38)
[2023-06-18] MEDS ORDERED: VANCOMYCIN 1,500 MG in SODIUM CHLORIDE 0.9% 500 ML 500 ML IVPB ONE (12:30)
--- NOTE | 2023-06-18 12:36 | P.ANPRN ---
Procedure Note - Anesthesia - Nerve Block Performed Left Interscalene Single Time Out Performed: Yes (1213) Date of Procedure: 06/18/23 Procedure Start Time: 12:14 Procedure Stop Time: 12:20 Location of Patient: PreOp Indication: Acute Post-Operative Pain, Requested by Surgeon Specifically requested for management of pain by DrTanja: Cassandra Israel Sedation Type: Sedate with meaningful contact maintained Preparation: Sterile Prep Position: Supine Catheter: None Needle Types: Pajunk Needle Gauge: 21 Ultrasound used to visualize needle placement: Yes Ultrasound used to observe medication spread: Yes Injectate: 0.5% Ropivacaine (see comment for volume) (30cc) Blood Aspirated: No Pain Paresthesia on Injection Noted: No Resistance on Injection: Normal Image Stored and Saved: Yes Events: Uneventful and Well Tolerated
[2023-06-18] MEDS ORDERED: ROCURONIUM 10 MG/ML (5 ML VIAL) IV ONE (12:48)
[2023-06-18] MEDS ORDERED: ROPIVACAINE 5 MG/ML 30 ML VIAL ONE (12:48)
[2023-06-18] MEDS ORDERED: ePHEDrine 50 MG/ML 1 ML VIAL ONE (12:48)
[2023-06-18] MEDS ORDERED: LIDOCAINE 1% INJ 10MG/ML (20 ML MDV) ONE (12:48)
[2023-06-18] MEDS ORDERED: PHENYLEPHRINE 10 MG/ML VIAL ONE (12:48)
[2023-06-18] MEDS ORDERED: SUCCINYLCHOLINE CHLORIDE 200 MG/10 ML VIAL IV ONE (12:48)
[2023-06-18] MEDS ORDERED: NEOSTIGMINE 1 MG/ML 10 ML VIAL ONE (12:48)
[2023-06-18] MEDS ORDERED: GLYCOPYRROLATE 0.2 MG/ML 2 ML VIAL ONE (12:48)
[2023-06-18] MEDS ORDERED: PROPOFOL 10 MG/ML 20 ML VIAL IV ONE (12:48)
[2023-06-18 15:48] LABS: Glucose,Whole Blood 229 mg/dL (70-110)
[2023-06-18] MEDS ORDERED: HYDROmorphone 0.5 MG/0.5 ML SYRINGE IVP PRN ×3 (15:48)
[2023-06-18] MEDS ORDERED: SENNOSIDES-DOCUSATE SODIUM 1 EACH TAB PO PRN (15:48)
[2023-06-18] MEDS ORDERED: ONDANSETRON 4 MG/2 ML VIAL IVP PRN (15:48)
[2023-06-18] MEDS ORDERED: hydrOXYzine pamoate 25 MG CAP PO PRN (15:48)
[2023-06-18] MEDS ORDERED: HYDROcodone/APAP 7.5-325MG 1 EACH TAB PO PRN (15:55)
--- NOTE | 2023-06-18 16:54 | XR ---
EXAMINATION TYPE: XR shoulder limited LT DATE OF EXAM: 06/18/2023 COMPARISON: None HISTORY: Postop TECHNIQUE: AP left shoulder FINDINGS: There is placement of a left shoulder prosthesis. There is a fracture of the cortex of the posterior lateral proximal humerus. No additional fractures are evident. IMPRESSION: 1. Cortical fracture posterior lateral proximal metaphyseal humerus. 2. Placement of a left shoulder prosthesis.
[2023-06-18] MEDS: CLINDAMYCIN 900 MG in DEXTROSE 5% IN WATER 50 ML IVPB SCH ×2 (17:18)
[2023-06-18] MEDS: LACTATED RINGERS 1,000 ML IV SCH (17:18)
[2023-06-18] MEDS ORDERED: DEXTROSE 50% SYRINGE 50 ML IVP PRN ×2 (18:19)
[2023-06-18 20:55] LABS: Glucose,Whole Blood 285 mg/dL (70-110)
[2023-06-18] MEDS ORDERED: ATORVASTATIN 40 MG TAB PO SCH (21:00)
[2023-06-18] MEDS ORDERED: METOPROLOL SUCCINATE (ER) 25 MG TAB.ER.24H PO SCH (21:00)
[2023-06-18] MEDS: INSULIN ASPART (NovoLOG) 100 UNIT/ML VIAL SQ SCH (21:13)
[2023-06-18] MEDS: DOCUSATE 100 MG CAP PO SCH (21:14)
[2023-06-19] MEDS: CLINDAMYCIN 900 MG in DEXTROSE 5% IN WATER 50 ML IVPB SCH ×2 (02:17)
[2023-06-19] MEDS: HYDROcodone/APAP 7.5-325MG 1 EACH TAB PO PRN ×2 (04:23→09:52)
[2023-06-19 05:49] LABS: Glucose,Whole Blood 225 mg/dL (70-110)
[2023-06-19 07:53] VITALS: BP 111/72; PULSE 74; RESP 18; TEMP 97.9
[2023-06-19] MEDS: INSULIN ASPART (NovoLOG) 100 UNIT/ML VIAL SQ SCH ×2 (07:54→12:09)
[2023-06-19] MEDS: DOCUSATE 100 MG CAP PO SCH (07:56)
[2023-06-19] MEDS ORDERED: NON FORMULARY DRUG (Cranberry Fruit Extract [Cranberry] 500 MG Tablet) PO SCH (09:00)
[2023-06-19] MEDS ORDERED: DULoxetine HCL 60 MG CAPSULE.DR PO SCH (09:00)
[2023-06-19] MEDS ORDERED: CHOLECALCIFEROL 25 MCG (1000 IU) TABLET PO SCH (09:00)
[2023-06-19] MEDS ORDERED: LEVOTHYROXINE 100 MCG TAB PO SCH (09:00)
[2023-06-19] MEDS ORDERED: PIOGLITAZONE 15 MG TAB PO SCH (09:00)
[2023-06-19] MEDS ORDERED: LACTOBACILLUS ACIDOPHILUS/PECT 1 EACH CAPSULE PO SCH (09:00)
[2023-06-19] MEDS ORDERED: NON FORMULARY DRUG (Alpha Lipoic Acid [Alpha Lipoic Acid] 600 MG Tablet) PO SCH (09:00)
[2023-06-19] MEDS ORDERED: MULTIVITAMINS, THERA 1 EACH TAB PO SCH (09:00)
[2023-06-19] MEDS: LACTATED RINGERS 1,000 ML IV SCH (10:24)
[2023-06-19 12:06] LABS: Glucose,Whole Blood 170 mg/dL (70-110)
--- NOTE | 2023-06-19 13:25 | P.DS ---
Providers Expected date of discharge: 06/19/23 Attending physician: Cassandra Israel DO Consults: 06/18/23 15:48 Consult Physician Routine Consulting Provider: Abilio Patel Consult Reason/Comments: medical management Do you want consulting provider notified?: Yes Primary care physician: Linda Sanders - Discharge Diagnosis(es) (1) Primary osteoarthritis, left shoulder Status: Acute (2) Status post reverse arthroplasty of left shoulder Status: Acute Hospital Course: This is a 78 year-old female last seen in our office with complaints of left shoulder pain. The patient has a known history of osteoarthritis of the left shoulder and presented to discuss options. After discussion and consideration the patient elected to proceed with a left reverse total shoulder arthroplasty. The patient was seen preoperatively by her primary care physician and cleared for surgery. The patient was admitted to [facility] on 06/18/2023 and underwent a left reverse total shoulder arthroplasty by Dr. Israel The procedure was performed without complications or sequelae. The patient was seen and evaluated at [facility] today. The patient's pain is well-controlled. The patient has no new complaints today denies any fevers, chills, nausea, vomiting, or shortness of breath. Vital signs are stable. The prevena wound vac dressing is clean, dry and intact. Arm is soft and nontender. The patient has full wrist and hand motion without difficulty. The patient's left upper extremity is neurovascularly intact. The patient is orthopedically stable for discharge home today in stable condition. Patient Condition at Discharge: Stable Plan - Discharge Summary Discharge Rx Participant: No New Discharge Prescriptions: New HYDROcodone/APAP 10-325MG [[place] 10-325] 1 tab PO Q4-6H PRN #20 tab PRN Reason: Pain No Action DULoxetine HCL [Cymbalta] 60 mg PO QAM Baclofen 10 mg PO QID PRN PRN Reason: Muscle Spasm Insulin NPH Hum/Reg Insulin Hm [NovoLIN 70-30 100 UNIT/ML VIAL] 16 - 20 unit SQ QAM Levothyroxine Sodium [Synthroid] 100 mcg PO QAM Aspirin EC [Ecotrin Low Dose] 81 mg PO DAILY Atorvastatin Calcium [Lipitor] 40 mg PO HS Ubidecarenone [Co Q-10] 200 mg PO DAILY Cranberry Fruit Extract [Cranberry] 500 mg PO DAILY oxyCODONE HCL [oxyCODONE HCL (IR)] 10 mg PO Q6H PRN 3 Days #12 tab PRN Reason: Pain Furosemide [Lasix] 20 mg PO DAILY@1500 Turmeric Root Extract [Turmeric] 500 mg PO DAILY hydrALAZINE HCL [Apresoline] 25 mg PO BID Insulin NPH Hum/Reg Insulin Hm [Novolin 70-30 100 Unit/ml Vial] 22 - 26 unit SQ HS@2000 L.acidoph,Paracasei, B.lactis [Probiotic] 1 each PO DAILY Metoprolol Succinate (ER) [Toprol Xl] 25 mg PO HS Cholecalciferol [Vitamin D3 (25 Mcg = 1000 Iu)] 50 mcg PO DAILY amLODIPine [Norvasc] 5 mg PO QAM Multivitamins, Thera [Multivitamin (formulary)] 1 tab PO DAILY metFORMIN HCL ER [Glucophage XR] 500 mg PO BID Alpha Lipoic Acid 600 mg PO DAILY Docusate Sodium [Dok] 200 mg PO BID Pioglitazone HCl 15 mg PO DAILY Discharge Medication List Baclofen 10 mg PO QID PRN 01/06/16 [History] DULoxetine HCL [Cymbalta] 60 mg PO QAM 01/06/16 [History] Insulin NPH Hum/Reg Insulin Hm [NovoLIN 70-30 100 UNIT/ML VIAL] 16 - 20 unit SQ QAM 03/17/16 [History] Levothyroxine Sodium [Synthroid] 100 mcg PO QAM 07/25/17 [History] Aspirin EC [Ecotrin Low Dose] 81 mg PO DAILY 12/31/18 [History] Atorvastatin Calcium [Lipitor] 40 mg PO HS 12/31/18 [History] Ubidecarenone [Co Q-10] 200 mg PO DAILY 08/11/19 [History] Cholecalciferol [Vitamin D3 (25 Mcg = 1000 Iu)] 50 mcg PO DAILY 03/07/22 [History] Cranberry Fruit Extract [Cranberry] 500 mg PO DAILY 03/07/22 [History] oxyCODONE HCL [oxyCODONE HCL (IR)] 10 mg PO Q6H PRN 3 Days #12 tab 03/23/22 [Rx] Alpha Lipoic Acid 600 mg PO DAILY 10/26/22 [History] Furosemide [Lasix] 20 mg PO DAILY@1500 10/26/22 [History] Multivitamins, Thera [Multivitamin (formulary)] 1 tab PO DAILY 10/26/22 [History] amLODIPine [Norvasc] 5 mg PO QAM 10/26/22 [History] metFORMIN HCL ER [Glucophage XR] 500 mg PO BID 10/26/22 [History] Turmeric Root Extract [Turmeric] 500 mg PO DAILY 11/28/22 [History] Docusate Sodium [Dok] 200 mg PO BID 06/13/23 [History] Insulin NPH Hum/Reg Insulin Hm [Novolin 70-30 100 Unit/ml Vial] 22 - 26 unit SQ HS@199906/13/23 [History] L.acidoph,Paracasei, B.lactis [Probiotic] 1 each PO DAILY 06/13/23 [History] Metoprolol Succinate (ER) [Toprol Xl] 25 mg PO HS 06/13/23 [History] Pioglitazone HCl 15 mg PO DAILY 06/13/23 [History] hydrALAZINE HCL [Apresoline] 25 mg PO BID 06/13/23 [History] HYDROcodone/APAP 10-325MG [[place] 10-325] 1 tab PO Q4-6H PRN #20 tab 06/19/23 [Rx] Follow up Appointment(s)/Referral(s): Nadya Jameson NPC [Nurse Practitioner] - 06/29/23 11:00 am Linda Sanders MD [Primary Care Provider] - 06/22/23 3:00 pm [facility], [NON-STAFF] - 1 Week ([facility] will call you to arrange a visit. ) Patient Instructions/Handouts: Joint Replacement Surgery (DC), Shoulder Arthroplasty (DC) Activity/Diet/Wound Care/Special Instructions: Keep Prevena wound vac in place for 1 week. May remove on Sunday06/25/23. May shower once Prevena is removed without covering incision Ice to shoulder Keep arm in sling but may come out for elbow range of motion exercises. May take over the counter stool softeners as needed for constipation due to pain medication. Follow up in 2 weeks with Nadya Jameson NP [facility] with any questions or concerns, Discharge Disposition: HOME SELF-CARE
[2023-06-19] MEDS ORDERED: INSULN ASP PRT/INSULIN ASPART 100 UNIT/ML 10 ML VIAL SQ SCH (20:00)
[2023-06-20] MEDS ORDERED: INSULN ASP PRT/INSULIN ASPART 100 UNIT/ML 10 ML VIAL SQ SCH (09:00)
--- NOTE | 2023-06-21 20:55 | P.OP ---
Date of Procedure: 06/18/23 Preoperative Diagnosis: Left shoulder osteoarthritis Postoperative Diagnosis: Same Procedure(s) Performed: Left reverse total shoulder arthroplasty, Left biceps tenodesis Implants: Bailee Glenoid - mini baseplate, standard 26mm glenosphere humerus - Size 12 mini stem, standard cup and poly Anesthesia: skyla CONROY Surgeon: Cassandra Israel Clinical Business Analyst #1: Nadya Jameson IV fluids (ml): 200 Pathology: none sent Condition: stable Disposition: PACU Indications for Procedure: Shital has advanced glenohumeral osteoarthritis of the left shoulder. She has failed conservative management and would like to proceed with arthroplasty. Operative Findings: Advanced glenohumeral arthritis Description of Procedure: The patient, operative extremity, and procedure were identified in the preop holding area. After informed consent was obtained, they received a regional block and was brought back to the OR where she was placed under general and placed in the beach chair position. All bony and neurovascular structures were well padded. The upper extremity was then prepped and draped in normal sterile fashion. An oblique incision was then made from the corocoid towards the attachment of the deltoid. Dissection was carried down to the delto pectoral interval and the cephalic vein was identified and mobilized laterally. About 5mm of the pectoralis insertion was released. A couch elevator was swept under the acromion to clear the subdeltoid space. The conjoined tendon was identified and the clavipectoral fascia was released to allow for placement of the nito retractor. The biceps tendon was located in the groove and released. A tenodesis was performed distal to the bicipital groove with an 0 vicryl. A subscapularis tenotomy was performed in an oblique fashion. The tendon was tagged with 0 vicryl. The humerus was externally rotated until the joint dislocated. The starting drill and serial reamers were inserted just posterior to the bicipital groove. The cutting jig was inserted and utilized to make the humeral head resection. The opening reamers were utilized followed by serial broaches with about 30 degrees of retroversion. A size 12 was found to be a good fit with rotational and axial stability. The protector plate was then impacted. The inferior osteophytes were carefully removed from the humeral neck with a rongeur. As the retractors were removed, the cephalic vein was found to be lacerated. It was tied off with vicryl. The capsule was teased away from the subscapularis tendon and removed with bovie cautery. Attention was then turned to the glenoid. The biceps tendon was followed to the labrum which was removed using bovey cautery. The axillary nerve was palpated and protected. The edges of the glenoid were exposed. The aiming guide was used to insert the guide pin in the inferior third of the glenoid. The appropriate reamers were utilized to create the bleeding bone base for the glenoid. The central hole was drilled and the base plate was inserted. A nonlocking screw was inserted in the center with good fixation. The remaining locking screws were inserted. A standard 36mm glenosphere was selected and impacted into place. Attention was then turned back to the humerus. The cup and standard poly trial was assembled. Reduction of the trial showed good tension and stability with minimal shuck and good range of motion. The trials were removed and the final implants were inserted. Pulse lavage with normal saline was used to irrigate the construct. When the subscapularis tendon was reduced, there was too much tension. The decision was made not to repair the tendon. A larks head knot was set to bring the two tendinous edges together. The wound was closed in a layered fashion with 0 vicryl, 3.0 vicryl, 4.0 monocryl, and skin glue. Wound was dressed with a provena dressing. The skilled assistance of the advanced practitioner was necessary through the entirety of the case for retraction and protection of important neurovascular structures.
== END 2023-06-19 15:40 | disposition home or self-care (01) ==
LOC: OR 10:52 → 4SSUR 16:32 → OR 06-19 15:40
PROVIDERS: ATTEND Orthopaedic Surgery Hand Surgery
DX: M19.012 Primary osteoarthritis, left shoulder (principal); G89.18 Other acute postprocedural pain; Z79.82 Long term (current) use of aspirin; Z79.4 Long term (current) use of insulin; Z98.890 Other specified postprocedural states; I10 Essential (primary) hypertension; E78.5 Hyperlipidemia, unspecified; Z88.0 Allergy status to penicillin; Z90.89 Acquired absence of other organs; Z90.49 Acquired absence of other specified parts of digestive tract; Z90.710 Acquired absence of both cervix and uterus; Z79.899 Other long term (current) drug therapy
CPT/HCPCS: 64415; 84132; 83036; 73020; 23472; C1776; J2250; J3370; J0330; J1100; J2710; J0690 ×2; J2405; J2001; J2795; J2704; J1170; J2371; J0736 ×2

== ENCOUNTER 2023-07-10 15:48 | Emergency (ER) | payer MEDICARE ==
[2023-07-10 16:17] VITALS: TEMP 97
[2023-07-10] MEDS ORDERED: IOPAMIDOL CONTRAST (ORAL USE) VIAL PO PRN (16:32)
[2023-07-10] MEDS ORDERED: SODIUM CHLORIDE 0.9% 1,000 ML IV STA (16:32)
--- NOTE | 2023-07-10 16:36 | ED ---
General Adult HPI - General Chief complaint: Wound/Laceration Stated complaint: Abdominal fistula Time Seen by Provider: 07/10/23 15:52 Source: patient, EMS Mode of arrival: EMS Limitations: no limitations - History of Present Illness Initial comments: Patient is a pleasant 78-year-old female presenting to the emergency department with concern for her abdominal fistula. Patient states this has been present for many months. Patient originally had diverticulitis surgery with ostomy bag. Patient states following this she had one fistula develop and then another. Patient states fistulas have been increasing in size and leakage. Patient states skin around there is becoming more irritated and uncomfortable. Patient has seen her surgeon for this and she was recommended to a surgeon and assention [place]. Patient states there just watching the area at this time. - Related Data Home Medications Medication Instructions Recorded Confirmed Baclofen 10 mg PO QID PRN 01/06/16 07/10/23 DULoxetine HCL [Cymbalta] 60 mg PO QAM 01/06/16 07/10/23 Levothyroxine Sodium [Synthroid] 100 mcg PO QAM 07/25/17 07/10/23 Aspirin EC [Ecotrin Low Dose] 81 mg PO DAILY 12/31/18 07/10/23 Atorvastatin Calcium [Lipitor] 40 mg PO HS 12/31/18 07/10/23 Ubidecarenone [Co Q-10] 200 mg PO DAILY 08/11/19 07/10/23 Cholecalciferol [Vitamin D3 (25 50 mcg PO DAILY 03/07/22 07/10/23 Mcg = 1000 Iu)] Cranberry Fruit Extract [Cranberry] 500 mg PO DAILY 03/07/22 07/10/23 Alpha Lipoic Acid 600 mg PO DAILY 10/26/22 07/10/23 Furosemide [Lasix] 20 mg PO PC-LUNCH PRN 10/26/22 07/10/23 Multivitamins, Thera [Multivitamin 1 tab PO DAILY 10/26/22 07/10/23 (formulary)] amLODIPine [Norvasc] 5 mg PO DAILY 10/26/22 07/10/23 metFORMIN HCL ER [Glucophage XR] 500 mg PO BID 10/26/22 07/10/23 Turmeric Root Extract [Turmeric] 500 mg PO DAILY 11/28/22 07/10/23 Docusate Sodium [Dok] 200 mg PO BID 06/13/23 07/10/23 Insulin NPH Hum/Reg Insulin Hm 20 - 30 unit SQ BID 06/13/23 07/10/23 [Novolin 70-30 100 Unit/ml Vial] L.acidoph,Paracasei, B.lactis 1 cap PO DAILY 06/13/23 07/10/23 [Probiotic] Metoprolol Succinate (ER) [Toprol 25 mg PO HS 06/13/23 07/10/23 Xl] Pioglitazone HCl 15 mg PO DAILY 06/13/23 07/10/23 hydrALAZINE HCL [Apresoline] 25 mg PO BID 06/13/23 07/10/23 Cyanocobalamin (Vitamin B-12) 1,000 mcg PO DAILY 07/10/23 07/10/23 [Vitamin B-12] Nitrofurantoin Monohyd/M-Cryst 100 mg PO Q12HR 07/10/23 07/10/23 [Macrobid] Previous Rx's Medication Instructions Recorded oxyCODONE HCL [oxyCODONE HCL (IR)] 10 mg PO Q6H PRN 3 Days #12 tab 03/23/22 HYDROcodone/APAP 10-325MG [[place] 1 tab PO Q4-6H PRN #20 tab 06/19/23 10-325] Allergies Allergy/AdvReac Type Severity Reaction Status Date / Time adhesive Allergy blisters Verified 07/10/23 19:06 amoxicillin Allergy Rash/Hives Verified 07/10/23 19:06 ciprofloxacin [From Cipro] AdvReac Dyspnea Verified 07/10/23 19:06 ciprofloxacin HCl AdvReac Dyspnea Verified 07/10/23 19:06 [From Cipro] Review of Systems ROS Statement: Those systems with pertinent positive or pertinent negative responses have been documented in the HPI. ROS Other: All systems not noted in ROS Statement are negative. Constitutional: Denies: fever Eyes: Denies: eye pain ENT: Denies: ear pain Respiratory: Denies: cough Cardiovascular: Denies: chest pain Endocrine: Denies: fatigue Gastrointestinal: Reports: as per HPI, abdominal pain Genitourinary: Denies: dysuria Musculoskeletal: Denies: back pain Skin: Reports: rash Past Medical History Past Medical History: Asthma, Coronary Artery Disease (CAD), Cancer, Diabetes Mellitus, Hearing Disorder / Deafness, Hyperlipidemia, Hypertension, Neurologic Disorder, Osteoarthritis (OA), Pneumonia, Renal Disease, Thyroid Disorder Additional Past Medical History / Comment(s): Hx Pneumonia and Bronchitis. Hx right ovarian cancer had chemo - finished October 2017. 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 Neuropathy in hands and feet. Hard of hearing. Diverticulosis. History of Any Multi-Drug Resistant Organisms: ESBL, MRSA Date of last positivie culture/infection: 08/31/22-MRSA; ESBL-05/26/19 MDRO Source:: Abdomen-MRSA; Urine-ESBL Past Surgical History: Appendectomy, Bowel Resection, Cholecystectomy, Hysterectomy, Joint Replacement, Orthopedic Surgery, Tonsillectomy Additional Past Surgical History / Comment(s): Exploratory laparotomy with ovar bess tumor removal and lysis of adhesions, bilateral knee replacements, bilateral cataract removals, D&C/, glaucoma procedure left eye, non functioning neurostimlator removed, glaucoma surgery, colonoscopy, colostomy 03/20/2022-mult surgeries for draing wound w/ 2nd ostomy site for fistula draining rt lower abd, trigger finger release. Past Anesthesia/Blood Transfusion Reactions: No Reported Reaction Additional Past Anesthesia/Blood Transfusion Reaction / Comment(s): Family hx unknown, patient was adopted. No hx blood transfusions Past Psychological History: Bipolar, Depression Smoking Status: Former smoker - Past Family History Father History Unknown: Yes Family Medical History: Unable to Obtain Additional Family Medical History / Comment(s): Pt is adopted and does not know parents medical history. General Exam Limitations: no limitations General appearance: alert, in no apparent distress Head exam: Present: normocephalic Eye exam: Present: normal appearance Neck exam: Present: normal inspection Respiratory exam: Present: normal lung sounds bilaterally Cardiovascular Exam: Present: regular rate, normal rhythm GI/Abdominal exam: Present: soft, other (Ostomy bag. There is also bag in the suprapubic region with underlying fistula and irritated skin). Absent: distended, tenderness Extremities exam: Present: normal inspection Neurological exam: Present: alert Psychiatric exam: Present: normal affect, normal mood Skin exam: Present: other (Skin irritation and fistula lower abdomen) Course Vital Signs 07/10/23 07/10/23 15:56 19:55 Temperature 97.0 F L Pulse Rate 79 67 Respiratory 18 16 Rate Blood Pressure 151/98 142/57 O2 Sat by Pulse 95 96 Oximetry Medical Decision Making - Medical Decision Making Was pt. sent in by a medical professional or institution (, PA, WIRE PREPARATION MACHINE TENDER, urgent care, hospital, or assisted...) When possible be specific @ -No Did you speak to anyone other than the patient for history (EMS, parent, family, police, friend...)? What history was obtained from this source @ -No Did you review nursing and triage notes (agree or disagree)? Why? @ -I reviewed and agree with nursing and triage notes Were old charts reviewed (outside hosp., previous admission, EMS record, old EKG, old radiological studies, urgent care reports/EKG's, assisted records)? Report findings @ -Previous admission reviewed Differential Diagnosis (chest pain, altered mental status, abdominal pain women, abdominal pain men, vaginal bleeding, weakness, fever, dyspnea, syncope, headache, dizziness, GI bleed, back pain, seizure, CVA, palpatations, mental health, musculoskeletal)? @ -Differential Abdominal Pain Women: Appendicitis, Cholecystitis, diverticulosis, ischemic bowel, pancreatitis, hepatitis, UTI, gastroenteritis, AAA, incarcerated hernia, bowel obstruction, constipation, inflammatory bowel, hepatitis, peptic ulcer disease, splenic infarction, perforated viscus, vulvitis, ovarian torsion, PID, kidney stone, placenta abruption, this is not meant to be an all-inclusive list EKG interpreted by me (3pts min.). @ -As above X-rays interpreted by me (1pt min.). @ -None done CT interpreted by me (1pt min.). @ -CT abdomen and pelvis does show anterior midline abdominal wall thickness without organized fluid collection. Could be related to patient's fistula. With abdominal ostomy. Complex right renal mass. U/S interpreted by me (1pt. min.). @ -None done What testing was considered but not performed or refused? (CT, X-rays, U/S, labs)? Why? @ -None What meds were considered but not given or refused? Why? @ -None Did you discuss the management of the patient with other professionals (professionals i.e. , PA, WIRE PREPARATION MACHINE TENDER, lab, RT, psych nurse, socially responsible investment adviser, java android developer, teacher, sea air land officer, child support case officer)? Give summary @ -Discussed with Dr. Islas who recommends transfer to [facility] Was smoking cessation discussed for >3mins.? @ -No Was critical care preformed (if so, how long)? @ -No Were there social determinants of health that impacted care today? How? (Homelessness, low income, unemployed, alcoholism, drug addiction, transportation, low edu. Level, literacy, decrease access to med. care, custodial, rehab)? @ -No Was there de-escalation of care discussed even if they declined (Discuss DNR or withdrawal of care, Hospice)? DNR status @ -No What co-morbidities impacted this encounter? (DM, HTN, Smoking, COPD, CAD, Cancer, CVA, ARF, Chemo, Hep., AIDS, mental health diagnosis, sleep apnea, morbid obesity)? @ -None Was patient admitted / discharged? Hospital course, mention meds given and route, prescriptions, significant lab abnormalities, going to OR and other pertinent info. @ -Patient reevaluated and resting comfortably in bed. Patient has a abdominal wall fistula that has progressed. Patient is having increased discharge and drainage and discomfort. Undiagnosed new problem with uncertain prognosis? @ -No Drug Therapy requiring intensive monitoring for toxicity (Heparin, Nitro, Insulin, Cardizem)? @ -No Were any procedures done? @ -No Diagnosis/symptom? @ -Abdominal wall fistula Acute, or Chronic, or Acute on Chronic? @ -Acute Uncomplicated (without systemic symptoms) or Complicated (systemic symptoms)? @ -default Side effects of treatment? @ -No Exacerbation, Progression, or Severe Exacerbation? @ -No Poses a threat to life or bodily function? How? (Chest pain, [place], [place], pneumonia, PE, COPD, DKA, ARF, appy, cholecystitis, CVA, Diverticulitis, Homicidal, Suic idal, threat to staff... and all critical care pts) @ -No Case was discussed with Maria Del Carmen at [facility] as well as Dr. monterroso who will accept transfer. - Lab Data Result diagrams: 07/10/23 17:11 07/10/23 19:04 Lab Results 07/10/23 07/10/23 07/10/23 Range/Units 17:11 17:11 19:04 WBC 7.2 (3.8-10.6) k/uL RBC 4.43 (3.80-5.40) m/uL Hgb 12.7 (11.4-16.0) gm/dL Hct 38.3 (34.0-46.0) % MCV 86.5 (80.0-100.0) fL MCH 28.6 (25.0-35.0) pg MCHC 33.1 (31.0-37.0) g/dL RDW 14.4 (11.5-15.5) % Plt Count 229 (150-450) k/uL MPV 8.3 Neutrophils % 72 % Lymphocytes % 14 % Monocytes % 10 % Eosinophils % 2 % Basophils % 0 % Neutrophils # 5.1 (1.3-7.7) k/uL Lymphocytes # 1.0 (1.0-4.8) k/uL Monocytes # 0.7 (0-1.0) k/uL Eosinophils # 0.2 (0-0.7) k/uL Basophils # 0.0 (0-0.2) k/uL Hypochromasia Slight PT 10.2 (10.0-12.5) sec INR 0.9 (<1.2) APTT 27.7 (22.0-30.0) sec Sodium 135 L (137-145) mmol/L Potassium 4.5 (3.5-5.1) mmol/L Chloride 105 (98-107) mmol/L Carbon Dioxide 23 (22-30) mmol/L Anion Gap 7 mmol/L BUN 28 H (7-17) mg/dL Creatinine 0.95 (0.52-1.04) mg/dL Est GFR (CKD-EPI)AfAm 66 (>60 ml/min/1.73 sqM) Est GFR (CKD-EPI)NonAf 58 (>60 ml/min/1.73 sqM) Glucose 135 H (74-99) mg/dL Calcium 8.2 L (8.4-10.2) mg/dL Total Bilirubin 0.5 (0.2-1.3) mg/dL AST 21 (14-36) U/L ALT 13 (4-34) U/L Alkaline Phosphatase 134 H (38-126) U/L Total Protein 6.4 (6.3-8.2) g/dL Albumin 3.1 L (3.5-5.0) g/dL Amylase 56 (30-110) U/L Lipase 191 (23-300) U/L Disposition Clinical Impression: Small bowel fistula Disposition: OTHER INSTITUTION NOT DEFINED Is patient prescribed a controlled substance at d/c from ED?: No Referrals: Linda Sanders MD [Primary Care Provider] - 1-2 days Time of Disposition: 21:26 - Out of Hospital Transfer - Req. Specs Out of Hospital Transfer - Requested Specifics: Other Emergency Center
[2023-07-10 17:22] LABS: Basophils % (A) 0 %; Eosinophils # (A) 0.2 k/uL (0-0.7); Eosinophils % (A) 2 %; HCT 38.3 % (34.0-46.0); HGB 12.7 gm/dL (11.4-16.0); Hypochromasia Slight; Lymphocytes % (A) 14 %; MCH 28.6 pg (25.0-35.0); MCHC 33.1 g/dL (31.0-37.0); MCV 86.5 fL (80.0-100.0); Mean Platelet Volume 8.3; Monocytes # (A) 0.7 k/uL (0-1.0); Monocytes % (A) 10 %; Neutrophils # (A) 5.1 k/uL (1.3-7.7); Neutrophils % (A) 72 %; Platelet Count 229 k/uL (150-450); RBC 4.43 m/uL (3.80-5.40); RDW 14.4 % (11.5-15.5); WBC 7.2 k/uL (3.8-10.6)
[2023-07-10 17:32] LABS: INR 0.9 (<1.2); Partial Thromboplastin Time 27.7 sec (22.0-30.0); Prothrombin Time 10.2 sec (10.0-12.5)
[2023-07-10 19:28] LABS: ALT 13 U/L (4-34); AST 21 U/L (14-36); African American GFR (CKD) 66 (>60 ml/min/1.73 sqM); Albumin 3.1 g/dL (3.5-5.0); Alkaline Phosphatase 134 U/L (38-126); Amylase 56 U/L (30-110); Anion Gap 7 mmol/L; Blood Urea Nitrogen 28 mg/dL (7-17); Calcium 8.2 mg/dL (8.4-10.2); Carbon Dioxide 23 mmol/L (22-30); Chloride 105 mmol/L (98-107); Glucose 135 mg/dL (74-99); Lipase 191 U/L (23-300); Non-African American GFR(CKD) 58 (>60 ml/min/1.73 sqM); Potassium 4.5 mmol/L (3.5-5.1); Sodium 135 mmol/L (137-145); Total Bilirubin 0.5 mg/dL (0.2-1.3); Total Protein 6.4 g/dL (6.3-8.2)
--- NOTE | 2023-07-10 20:52 | CT ---
EXAMINATION TYPE: CT abdomen pelvis w con CT DLP: 2079.5 mGycm, Automated exposure control for dose reduction was used. DATE OF EXAM: 07/10/2023 8:38 PM COMPARISON: CTs dating back to 05/14/2020 most recent 12/18/2022. CLINICAL INDICATION:Female, 78 years old with history of abdominal pain; Wound around ostomy and fist adrianna x1yr. TECHNIQUE: Axial CT abdomen pelvis w con;Sagittal and coronal reformats were created on a separate w orkstation. Contrast used:100 ml mL of Isovue 300 with IV Contrast, (none if empty) Oral contrast used: with Oral Contrast (none if empty) FINDINGS: LOWER CHEST: Vertebra of annular calcifications. Scattered streaky atelectasis/scarring throughout th e base of the ABDOMEN LIVER: Unremarkable GALLBLADDER AND BILE DUCTS: Gallbladder is surgically absent. PANCREAS: Unremarkable. SPLEEN: Unremarkable. ADRENAL GLANDS: Heterogenous appearing right adrenal gland with dominant nodule with central fat and calcifications measuring 48 x 34 mm. KIDNEYS AND URETERS: No evidence of hydronephrosis or renal calculus. The ureters are unremarkable. PELVIS BLADDER: Unremarkable REPRODUCTIVE: Unremarkable. ABDOMEN & PELVIS STOMACH AND BOWEL: No evidence of bowel obstruction. Scattered colonic diverticula. PERITONEUM/RETROPERITONEUM: No evidence of pneumoperitoneum or free fluid. VASCULATURE: No evidence of aortic aneurysm. MUSCULOSKELETAL: No acute osseous abnormalities T12 compression deformity with grade 1 anterolisthesi s of L4 and L5. Findings are stable from prior. Multilevel degeneration changes with osteophyte forma tion disc space narrowing. LYMPH NODES: No gross evidence for lymphadenopathy. SOFT TISSUE/ABDOMINAL WALL: Phlegmonous change in the midline anterior wall with focus of gas in the subcutaneous tissues. Finding could correlate with patient's fistula. No organizing fluid collection visualized. Bowel closely approximates the neck in the area of the peritoneum. Left abdominal ostomy with small parastomal fat-containing hernia. No evidence for obstruction or sti mulation. IMPRESSION: 1. Anterior midline abdominal wall thickness change without organizing fluid collection. Could relat e to patient's fistula. 2. Left abdominal ostomy with small parastomal fat containing hernia. No evidence for obstruction or competition willingness ostomy. 3. Complex right adrenal mass measuring 40 x 34 mm with internal fat and calcification suggestive co llision tumor. Not significantly changed from at least 05/14/2020.
[2023-07-10 22:58] VITALS: BP 140/73; PULSE 68; RESP 18
== END 2023-07-10 23:44 | disposition other institution (70) ==
LOC: EC 15:48
DX: K63.2 Fistula of intestine (principal); E11.22 Type 2 diabetes mellitus with diabetic chronic kidney disease; E11.36 Type 2 diabetes mellitus with diabetic cataract; E11.40 Type 2 diabetes mellitus with diabetic neuropathy, unspecified; I12.9 Hypertensive chronic kidney disease with stage 1 through stage 4 chronic kidney disease, or unspecified chronic kidney disease; I25.10 Atherosclerotic heart disease of native coronary artery without angina pectoris; E78.5 Hyperlipidemia, unspecified; J45.909 Unspecified asthma, uncomplicated; N18.9 Chronic kidney disease, unspecified; E07.9 Disorder of thyroid, unspecified; F31.9 Bipolar disorder, unspecified; Z87.891 Personal history of nicotine dependence; Z79.899 Other long term (current) drug therapy; Z79.82 Long term (current) use of aspirin; Z79.4 Long term (current) use of insulin; Z79.84 Long term (current) use of oral hypoglycemic drugs; Z79.890 Hormone replacement therapy; Z88.0 Allergy status to penicillin; Z88.8 Allergy status to other drugs, medicaments and biological substances; Z88.1 Allergy status to other antibiotic agents
CPT/HCPCS: 99285 ×2; 96360 ×2; 96361 ×6; 36415; 80053; 82150; 83690; 85025; 85610; 85730; 74177; Q9967

== ENCOUNTER 2023-08-21 15:05 | Emergency (ER) | payer MEDICARE ==
[2023-08-21] MEDS: KETOROLAC 15 MG/ML 1 ML VIAL IVP STA (15:53)
[2023-08-21] MEDS: MORPHINE SULFATE 2 MG/ML SYRINGE IVP STA (15:53)
--- NOTE | 2023-08-21 16:52 | CT ---
EXAMINATION TYPE: CT brain carolinine wo con DATE OF EXAM: 08/21/2023 COMPARISON: 04/16/2020 HISTORY: 78-year-old female with pain after Fall, head injury CT DLP: 1470.4 mGycm Automated exposure control for dose reduction was used. Technique: Examination of the head was done in axial plane without intravenous contrast. Coronal and sagittal reconstructions performed. CT of the cervical spine was obtained in axial plane without intravenous injection of contrast mater ial. Coronal and sagittal reformatted images were obtained from the axial views for evaluation of f ractures, spinal alignment and canal. FINDINGS: Head: There is no evidence of acute intracranial hemorrhage, acute ischemic changes, mass, mass-effect, or extra-axial fluid collection. There is no effacement of cerebral sulci or basal subarachnoid cister ns. There is no hydrocephalus. There is no midline shift. Galindo-white matter distinction is preserv ed. Benign hyperostosis frontalis interna. Mild generalized supratentorial volume loss. Secondary mild pr ominence to the ventricular system. Moderate patchy white matter hypodensities in both cerebral hemis pheres. Trace mucosal thickening maxillary sinuses and ethmoid air cells. Rightward nasal septal deviation. O rbits and globes appear intact. No calvarial fracture. Cervical spine: No craniocervical junction abnormally, predental space widening, or prevertebral soft tissue swelling . Degenerative change of the C1 dens articulation. There is moderate multilevel spondylotic change. Disc osteophyte complex at C5-C6 contribute to moder ate focal spinal canal stenosis. Alignment is maintained. No acute fracture seen of the cervical spine. Degenerative bony ankylosis along the left-sided posterior elements from C3 through C5 levels. Moderate bilateral neuroforaminal stenosis C5-C6 and via variable mild neuroforaminal narrowing at ot her levels. Patchy opacities within the visualized left upper lobe. DISH in the visualized upper thoracic spine. Sagittal and coronal reformatted images confirm above findings. COMBINED IMPRESSION: 1. Mild generalized cerebral atrophy. Moderate patchy burden of chronic small vessel ischemic disease . No acute intracranial abnormality seen. 2. Moderate spondylotic change especially C5-C6. No acute fracture or malalignment seen of the cervic al spine. 3. Some patchy infiltrate in the visualized left upper lobe. Correlate to exclude any symptoms of pne umonia.
--- NOTE | 2023-08-21 17:35 | ED ---
Fall HPI - General Chief Complaint: Fall Stated Complaint: Fall Time Seen by Provider: 08/21/23 15:19 Source: patient, EMS, RN notes reviewed Mode of arrival: EMS Limitations: no limitations - History of Present Illness Initial Comments: This is a 78-year-old female who presents to the emergency department for a fall. Patient was cooking dinner in the kitchen, when she slipped on the potatoes and fell, landing on her back and injuring the right arm. She did hit her head, but denies any loss of consciousness. Not taking any blood thinners. The majority of the pain is in her right hand where she also sustained a large skin laceration. Tetanus vaccine is up-to-date. MD Complaint: fall - Related Data Home Medications Medication Instructions Recorded Confirmed Baclofen 10 mg PO QID PRN 01/06/16 08/21/23 DULoxetine HCL [Cymbalta] 60 mg PO DAILY 01/06/16 08/21/23 Levothyroxine Sodium [Synthroid] 100 mcg PO DAILY 07/25/17 08/21/23 Aspirin EC [Ecotrin Low Dose] 81 mg PO DAILY 12/31/18 08/21/23 Atorvastatin Calcium [Lipitor] 40 mg PO HS 12/31/18 08/21/23 Ubidecarenone [Co Q-10] 200 mg PO DAILY 08/11/19 08/21/23 Cholecalciferol [Vitamin D3 (25 50 mcg PO DAILY 03/07/22 08/21/23 Mcg = 1000 Iu)] Cranberry Fruit Extract [Cranberry] 500 mg PO DAILY 03/07/22 08/21/23 Alpha Lipoic Acid 600 mg PO DAILY 10/26/22 08/21/23 Furosemide [Lasix] 20 mg PO PC-LUNCH PRN 10/26/22 08/21/23 Multivitamins, Thera [Multivitamin 1 tab PO DAILY 10/26/22 08/21/23 (formulary)] metFORMIN HCL ER [Glucophage XR] 500 mg PO BID 10/26/22 08/21/23 Turmeric Root Extract [Turmeric] 500 mg PO DAILY 11/28/22 08/21/23 Docusate Sodium [Dok] 200 mg PO BID 06/13/23 08/21/23 Insulin NPH Hum/Reg Insulin Hm 20 - 30 unit SQ BID 06/13/23 08/21/23 [Novolin 70-30 100 Unit/ml Vial] L.acidoph,Paracasei, B.lactis 1 cap PO DAILY 06/13/23 08/21/23 [Probiotic] Metoprolol Succinate (ER) [Toprol 25 mg PO HS 06/13/23 08/21/23 Xl] Pioglitazone HCl 15 mg PO DAILY 06/13/23 08/21/23 hydrALAZINE HCL [Apresoline] 25 mg PO BID 06/13/23 08/21/23 Cyanocobalamin (Vitamin B-12) 1,000 mcg PO DAILY 07/10/23 08/21/23 [Vitamin B-12] amLODIPine [Norvasc] 10 mg PO DAILY 08/21/23 08/21/23 Previous Rx's Medication Instructions Recorded oxyCODONE HCL [oxyCODONE HCL (IR)] 10 mg PO Q6H PRN 3 Days #12 tab 03/23/22 HYDROcodone/APAP 10-325MG [[place] 1 tab PO Q4-6H PRN #20 tab 06/19/23 10-325] Allergies Allergy/AdvReac Type Severity Reaction Status Date / Time adhesive Allergy blisters Verified 08/21/23 17:21 amoxicillin Allergy Rash/Hives Verified 08/21/23 17:21 ciprofloxacin [From Cipro] AdvReac Dyspnea Verified 08/21/23 17:21 ciprofloxacin HCl AdvReac Dyspnea Verified 08/21/23 17:21 [From Cipro] Review of Systems ROS Statement: Those systems with pertinent positive or pertinent negative responses have been documented in the HPI. ROS Other: All systems not noted in ROS Statement are negative. Past Medical History Past Medical History: Asthma, Coronary Artery Disease (CAD), Cancer, Diabetes Mellitus, Hearing Disorder / Deafness, Hyperlipidemia, Hypertension, Neurologic Disorder, Osteoarthritis (OA), Pneumonia, Renal Disease, Thyroid Disorder Additional Past Medical History / Comment(s): Hx Pneumonia and Bronchitis. Hx right ovarian cancer had chemo - finished October 2017. 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 Neuropathy in hands and feet. Hard of hearing. Diverticulosis. History of Any Multi-Drug Resistant Organisms: ESBL, MRSA Date of last positivie culture/infection: 08/31/22-MRSA; ESBL-05/26/19 MDRO Source:: Abdomen-MRSA; Urine-ESBL Past Surgical History: Appendectomy, Bowel Resection, Cholecystectomy, Hysterectomy, Joint Replacement, Orthopedic Surgery, Tonsillectomy Additional Past Surgical History / Comment(s): Exploratory laparotomy with ovarian tumor removal and lysis of adhesions, bilateral knee replacements, bilateral cataract removals, D&C/, glaucoma procedure left eye, non functioning neurostimlator removed, glaucoma surgery, colonoscopy, colostomy 03/20/2022-mult surgeries for draing wound w/ 2nd ostomy site for fistula draining rt lower abd, trigger finger release. Past Anesthesia/Blood Transfusion Reactions: No Reported Reaction Additional Past Anesthesia/Blood Transfusion Reaction / Comment(s): Family hx unknown, patient was adopted. No hx blood transfusions Past Psychological History: Bipolar, Depression Smoking Status: Former smoker - Past Family History Father History Unknown: Yes Family Medical History: Unable to Obtain Additional Family Medical History / Comment(s): Pt is adopted and does not know parents medical history. General Exam Limitations: no limitations General appearance: alert, in no apparent distress Head exam: Present: atraumatic, normocephalic, normal inspection Respiratory exam: Present: normal lung sounds bilaterally. Absent: respiratory distress, wheezes, rales, rhonchi, stridor Cardiovascular Exam: Present: regular rate, normal rhythm, normal heart sounds. Absent: systolic murmur, diastolic murmur, rubs, gallop, clicks Extremities exam: Present: other (Large skin tear to the dorsal aspect of the right hand with active bleeding. Surrounding swelling and ecchymosis.) Neurological exam: Present: alert, oriented X3, CN II-XII intact Psychiatric exam: Present: normal affect, normal mood Skin exam: Present: warm, dry, intact, normal color. Absent: rash Course Vital Signs 08/21/23 08/21/23 15:07 19:15 Temperature 98.7 F 98.0 F Pulse Rate 72 68 Respiratory 20 12 Rate Blood Pressure 173/65 128/56 O2 Sat by Pulse 93 L 96 Oximetry Medical Decision Making - Medical Decision Making This is a 78 year old female who presents to the emergency department for a fall. Was pt. sent in by a medical professional or institution? @ -No Did you speak to anyone other than the patient for history? @ -No Did you review nursing and triage notes? @ -Yes, and I agree, it is accurate with regards to the patient's symptoms. Were old charts reviewed? @ -No Differential Diagnosis? @ -Differential Musculoskeletal: Muscular strain, contusion, ligament sprain, fracture, arthritis, septic arthritis, bursitis, cellulitis, muscle spasm, nerve compression, DVT, arterial occlusion, herpes zoster, electrolyte abnormality, tumor.... This is not meant to be in all inclusive list EKG interpreted by me (3pts min.)? @ -Not obtained X-rays interpreted by me (1pt min.)? @ -Chest x-ray obtained, my interpretation identifies no localized consolidations or infiltrates. X-ray of the right hand obtained. My interpretation identifies no acute fractures. CT interpreted by me (1pt min.)? @ -Computed tomography scan of the brain and c-spine obtained. My interpretation identifies no evidence of an acute intracranial hemorrhage, skull fracture, or cervical spine fracture. U/S interpreted by me (1pt. min.)? @ -Not obtained What testing was considered but not performed? (CT, X-rays, U/S, labs)? Why? @ -None What meds were considered but not given? Why? @ -None Did you discuss the management of the patient with other professionals? @ -No Did you reconcile home meds? @ -No Was smoking cessation discussed for >3mins.? @ -No Was critical care preformed (if so, how long)? @ -No Were there social determinants of health that impacted care today? How? (Homelessness, low income, unemployed, alcoholism, drug addiction, transportation, low edu. Level, literacy, decrease access to med. care, residential, rehab)? @ -No Was there de-escalation of care discussed even if they declined? (Discuss DNR or withdrawal of care, Hospice)? @ -No What co-morbidities impacted this encounter? (DM, HTN, Smoking, COPD, CAD, Cancer, CVA, Hep., AIDS, mental health diagnosis, sleep apnea, morbid obesity)? @ -Osteoarthritis Was patient admitted / discharged? @ -Discharged. Computed tomography scan of the brain and C-spine obtained revealing no evidence of an acute intracranial process or cervical spine fracture. They did question a patchy infiltrate in the left upper lobe. Chest x-ray revealed no acute process and the patient had no symptoms of coughing, congestion, or shortness of breath. X-ray of the right hand obtained as well revealing soft tissue swelling without any definitive fractures. She did have a large skin tear on her hand. This was thoroughly cleansed and bandaged. She does have visiting nursing staff who she states can help her change her bandages as well. Tetanus vaccine is already up-to-date. She has pain medication at home that she will continue to take as needed. Otherwise advised follow up with her primary care provider. Undiagnosed new problem with uncertain prognosis? @ -None Drug Therapy requiring intensive monitoring for toxicity (Heparin, Nitro, Insulin, Cardizem)? @ -None Were any procedures done? @ -None Diagnosis/symptom? @ -Fall, skin tear, wrist sprain Acute, or Chronic, or Acute on Chronic? @ -Acute Uncomplicated (without systemic symptoms) or Complicated (systemic symptoms)? @ -Uncomplicated Side effects of treatment? @ -None Exacerbation, Progression, or Severe Exacerbation] @ -Not applicable Poses a threat to life or bodily function? @ -No Return precautions reviewed in depth, the patient is instructed to return to the emergency department with any new, worsening, or concerning symptoms. Patient verbalized understanding. This case was discussed in detail with the attending ED physician, Dr. De La Cruz. Presentation, findings, and treatment plan discussed in detail as well. - Radiology Data Radiology results: report reviewed, image reviewed Disposition Clinical Impression: Fall, Right wrist sprain, Skin tear of right hand without complication Disposition: HOME SELF-CARE Instructions (If sedation given, give patient instructions): Fall Prevention for Older Adults (ED), Skin Tear (ED), Wrist Sprain (ED) Additional Instructions: Return to the emergency department with any new, worsening, or concerning symptoms. Apply ice to the wrist for 10-15 minutes every 2-3 hours for the first 2-3 days. Continue to take your pain medication as prescribed. Follow up with your primary care provider in 1-2 days. Is patient prescribed a controlled substance at d/c from ED?: No Referrals: Linda Sanders MD [Primary Care Provider] - 1-2 days Time of Disposition: 19:06
--- NOTE | 2023-08-21 18:11 | XR ---
EXAMINATION TYPE: XR chest 2V DATE OF EXAM: 08/21/2023 COMPARISON: CT 12/18/2022 HISTORY: 78-year-old female C5 6.1, malignant neoplasm of right ovary TECHNIQUE: AP and lateral views FINDINGS: Right PICC tip at the upper SVC level. Heart borderline enlarged. Atherosclerotic arch calcifications . Mild interstitial prominence as a chronic appearance. No consolidation or pleural effusion seen. A few densities relating to portable technique and body habitus. Partially visualized left shoulder art hroplasty. IMPRESSION: Borderline heart size and chronic appearing changes. No definite acute process.
--- NOTE | 2023-08-21 18:14 | XR ---
EXAMINATION TYPE: XR hand complete RT DATE OF EXAM: 08/21/2023 COMPARISON: 04/16/2020 HISTORY: 78-year-old female injury and pain after fall TECHNIQUE: 3 views FINDINGS: The patient's hand is wrapped in the fingers are cluster closely together limiting the eval uation. Moderate to severe degenerative change at the base of the thumb and severe scattered through some of the DIP joints. There is prominent dorsal soft tissue swelling present. Moderate degenerative change second MCP joint. No acute fracture, subluxation or dislocation seen. IMPRESSION: The patient's hand is wrapped crowding the fingers together and limiting the assessment. Prominent do rsal soft tissue swelling. Osteoarthritic change especially throughout the DIP joints and base of the thumb. No definite acute fracture identified allowing for the exam limitations.
[2023-08-21] MEDS: MORPHINE SULFATE 2 MG/ML SYRINGE IM STA (18:32)
[2023-08-21 19:30] VITALS: BP 128/56; PULSE 68; RESP 12; TEMP 98
== END 2023-08-21 19:46 | disposition home or self-care (01) ==
LOC: EC 15:05
DX: S61.411A Laceration without foreign body of right hand, initial encounter (principal); S63.501A Unspecified sprain of right wrist, initial encounter; E11.22 Type 2 diabetes mellitus with diabetic chronic kidney disease; E11.36 Type 2 diabetes mellitus with diabetic cataract; E11.40 Type 2 diabetes mellitus with diabetic neuropathy, unspecified; E78.5 Hyperlipidemia, unspecified; I12.9 Hypertensive chronic kidney disease with stage 1 through stage 4 chronic kidney disease, or unspecified chronic kidney disease; I25.10 Atherosclerotic heart disease of native coronary artery without angina pectoris; J45.909 Unspecified asthma, uncomplicated; N18.9 Chronic kidney disease, unspecified; E07.9 Disorder of thyroid, unspecified; F32.A Depression, unspecified; F41.9 Anxiety disorder, unspecified; Z79.4 Long term (current) use of insulin; Z79.84 Long term (current) use of oral hypoglycemic drugs; Z79.82 Long term (current) use of aspirin; Z79.890 Hormone replacement therapy; Z79.899 Other long term (current) drug therapy; Z87.891 Personal history of nicotine dependence; Z88.1 Allergy status to other antibiotic agents; Z88.0 Allergy status to penicillin; Z91.048 Other nonmedicinal substance allergy status; Z90.49 Acquired absence of other specified parts of digestive tract; W01.0XXA Fall on same level from slipping, tripping and stumbling without subsequent striking against object, initial encounter
CPT/HCPCS: 73130; 71046; 72125; 70450; 99285; 96374; 96372; L0120; J2270; J1885

== ENCOUNTER → 2023-11-21 | Outpatient (CLI) | payer MEDICARE ==
[2023-11-21 18:31] LABS: Basophils # (A) 0.04 X 10*3/uL (0.00-0.10); Basophils % (A) 0.4 %; Eosinophils # (A) 0.24 X 10*3/uL (0.04-0.35); Eosinophils % (A) 2.4 %; HGB 12.7 g/dL (12.0-15.0); Lymphocytes # (A) 1.35 X 10*3/uL (0.90-5.00); Lymphocytes % (A) 13.7 %; MCH 25.9 pg (27.0-32.0); MCHC 30.2 g/dL (32.0-37.0); MCV 85.7 FL (80.0-97.0); Mean Platelet Volume 10.7 FL (9.5-12.2); Monocytes # (A) 0.68 X 10*3/uL (0.20-1.00); Monocytes % (A) 6.9 %; NRBC Per 100 WBC 0 X 10*3/uL (0.00-0.01); Neutrophils # (A) 7.51 X 10*3/uL (1.80-7.70); Neutrophils % (A) 75.9 %; Platelet Count 341 X 10*3/uL (140-440); RDW 17.5 % (11.5-14.5); WBC 9.89 X 10*3/uL (4.50-10.00)
[2023-11-21 20:56] LABS: % Iron Saturation 10.47 (12.00-45.00); ALT 13 U/L (8-44); AST 16 U/L (13-35); Albumin 4.1 g/dL (3.8-4.9); Albumin/Globulin Ratio 1.14 Ratio (1.60-3.17); Alkaline Phosphatase 144 U/L (41-126); BUN/Creat Ratio 26.67 Ratio (12.00-20.00); Calcium 9.7 mg/dL (8.7-10.3); Carbon Dioxide 27.3 mmol/L (21.6-31.8); Chloride 102 mmol/L (96-109); Globulin 3.6 g/dL (1.6-3.3); Glucose 138 mg/dL (70-110); Iron 36 UG/DL (50-170); Magnesium 2.3 mg/dL (1.5-2.4); Potassium 4.4 mmol/L (3.5-5.5); Sodium 141 mmol/L (135-145); Total Bilirubin 0.4 mg/dL (0.3-1.2); Total Iron Binding Capacity 344 UG/DL (228-460); Total Protein 7.7 g/dL (6.2-8.2)
== END | disposition home or self-care (01) ==
LOC: LABWHC1 14:35
PROVIDERS: ATTEND Internal Medicine
DX: I48.91 Unspecified atrial fibrillation (principal); N18.30 Chronic kidney disease, stage 3 unspecified; E03.9 Hypothyroidism, unspecified; E83.42 Hypomagnesemia; R53.83 Other fatigue
CPT/HCPCS: 36415; 80053; 82607; 82746; 83540; 83550; 83735; 84443; 84481; 85025

== ENCOUNTER → 2023-12-18 | Outpatient (CLI) | payer MEDICARE ==
[2023-12-18 14:34] VITALS: BP 132/73; PULSE 68; RESP 16; TEMP 98
[2023-12-18] MEDS: IRON SUCROSE 200 MG in SODIUM CHLORIDE 0.9% 100 ML IVPB NR (14:35)
[2023-12-18] MEDS: SODIUM CHLORIDE 0.9% 500 ML 500 ML in EMPTY BAG 1 BAG IV PRN (14:35)
== END ==
LOC: PROCWHC3 14:20
PROVIDERS: ATTEND Internal Medicine
DX: R53.83 Other fatigue (principal)
CPT/HCPCS: 96365; J1756

== ENCOUNTER → 2024-04-02 | Outpatient (CLI) | payer MEDICARE ==
[2024-04-02 22:53] LABS: ALT 22 U/L (8-44); AST 22 U/L (13-35); Albumin 3.9 g/dL (3.8-4.9); Albumin/Globulin Ratio 1.26 Ratio (1.60-3.17); Alkaline Phosphatase 134 U/L (41-126); BUN/Creat Ratio 24.92 Ratio (12.00-20.00); Blood Urea Nitrogen 29.9 mg/dL (9.0-27.0); Calcium 9.4 mg/dL (8.7-10.3); Carbon Dioxide 24.6 mmol/L (21.6-31.8); Chloride 103 mmol/L (96-109); Chol/HDL Ratio 2.07 Ratio; Globulin 3.1 g/dL (1.6-3.3); Glucose 209 mg/dL (70-110); LDL Cholesterol,Calculated 48.8 mg/dL (0.0-131.0); Potassium 5.1 mmol/L (3.5-5.5); Sodium 140 mmol/L (135-145); T4, Free (Free Thyroxine) 1.47 ng/dL (0.80-1.80); Total Bilirubin 0.3 mg/dL (0.3-1.2)
[2024-04-02 22:58] LABS: Urine Creatinine 83.5 mg/dL (28.0-217.0)
== END | disposition home or self-care (01) ==
LOC: LABWHC1 12:48
PROVIDERS: ATTEND Nurse Practitioner Gerontology
DX: E11.65 Type 2 diabetes mellitus with hyperglycemia (principal); E03.9 Hypothyroidism, unspecified; E55.9 Vitamin D deficiency, unspecified; Z79.4 Long term (current) use of insulin
CPT/HCPCS: 36415; 80053; 80061; 82043; 82306; 82570; 83036; 84439; 84443

== ENCOUNTER → 2024-07-25 | Outpatient (CLI) | payer MEDICARE ==
[2024-07-25 16:05] LABS: ALT 15 U/L (8-44); AST 14 U/L (13-35); Albumin 3.7 g/dL (3.8-4.9); Albumin/Globulin Ratio 1.32 Ratio (1.60-3.17); Alkaline Phosphatase 160 U/L (41-126); Blood Urea Nitrogen 31.5 mg/dL (9.0-27.0); Calcium 9.1 mg/dL (8.7-10.3); Carbon Dioxide 26.2 mmol/L (21.6-31.8); Chloride 105 mmol/L (96-109); Chol/HDL Ratio 1.96 Ratio; Globulin 2.8 g/dL (1.6-3.3); Glucose 137 mg/dL (70-110); LDL Cholesterol,Calculated 59.1 mg/dL (0.0-131.0); Potassium 5.1 mmol/L (3.5-5.5); Sodium 140 mmol/L (135-145); T4, Free (Free Thyroxine) 1.41 ng/dL (0.80-1.80); Total Bilirubin 0.3 mg/dL (0.3-1.2); Total Protein 6.5 g/dL (6.2-8.2); VLDL Calculation 18.88 mg/dL (5.00-40.00)
== END | disposition home or self-care (01) ==
LOC: LABWHC1 11:23
PROVIDERS: ATTEND Internal Medicine
DX: E11.65 Type 2 diabetes mellitus with hyperglycemia (principal); Z79.4 Long term (current) use of insulin
CPT/HCPCS: 36415; 80053; 80061; 82043; 82570; 83036; 84439; 84443

== ENCOUNTER 2024-09-05 11:12 | Emergency (ER) | payer MEDICARE ==
--- NOTE | 2024-09-05 11:38 | ED ---
General Adult HPI - General Chief complaint: GI Bleed Stated complaint: Poss GI bleed Time Seen by Provider: 09/05/24 11:32 Source: patient, RN notes reviewed, old records reviewed Mode of arrival: EMS Limitations: no limitations - History of Present Illness Initial comments: 79-year-old female presenting with dark stool. Patient has colostomy and has noted dark stool today. She does report generalized weakness and fatigue. No history of blood thinners. She states she had a gastrointestinal hemorrhage 6 or 7 years ago. Denies abdominal pain. Denies fever. - Related Data Home Medications Medication Instructions Recorded Confirmed Baclofen 10 mg PO QID PRN 01/06/16 12/18/23 DULoxetine HCL [Cymbalta] 60 mg PO DAILY 01/06/16 12/18/23 Levothyroxine Sodium [Synthroid] 100 mcg PO DAILY 07/25/17 12/18/23 Aspirin EC [Ecotrin Low Dose] 81 mg PO DAILY 12/31/18 12/18/23 Atorvastatin Calcium [Lipitor] 40 mg PO HS 12/31/18 12/18/23 Ubidecarenone [Co Q-10] 200 mg PO DAILY 08/11/19 12/18/23 Cholecalciferol [Vitamin D3 (25 50 mcg PO DAILY 03/07/22 12/18/23 Mcg = 1000 Iu)] Cranberry Fruit Extract [Cranberry] 500 mg PO DAILY 03/07/22 12/18/23 Alpha Lipoic Acid 600 mg PO DAILY 10/26/22 12/18/23 Furosemide [Lasix] 20 mg PO PC-LUNCH PRN 10/26/22 12/18/23 Multivitamins, Thera [Multivitamin 1 tab PO DAILY 10/26/22 12/18/23 (formulary)] metFORMIN HCL ER [Glucophage XR] 500 mg PO BID 10/26/22 12/18/23 Turmeric Root Extract [Turmeric] 500 mg PO DAILY 11/28/22 12/18/23 Docusate Sodium [Dok] 200 mg PO BID 06/13/23 12/18/23 Insulin NPH Hum/Reg Insulin Hm 20 - 30 unit SQ BID 06/13/23 12/18/23 [Novolin 70-30 100 Unit/ml Vial] L.acidoph,Paracasei, B.lactis 1 cap PO DAILY 06/13/23 12/18/23 [Probiotic] Metoprolol Succinate (ER) [Toprol 25 mg PO HS 06/13/23 12/18/23 Xl] Pioglitazone HCl 15 mg PO DAILY 06/13/23 12/18/23 hydrALAZINE HCL [Apresoline] 25 mg PO BID 06/13/23 12/18/23 Cyanocobalamin (Vitamin B-12) 1,000 mcg PO DAILY 07/10/23 12/18/23 [Vitamin B-12] amLODIPine [Norvasc] 10 mg PO DAILY 08/21/23 12/18/23 Previous Rx's Medication Instructions Recorded oxyCODONE HCL [oxyCODONE HCL (IR)] 10 mg PO Q6H PRN 3 Days #12 tab 03/23/22 HYDROcodone/APAP 10-325MG [[place] 1 tab PO Q4-6H PRN #20 tab 06/19/23 10-325] Allergies Allergy/AdvReac Type Severity Reaction Status Date / Time adhesive Allergy blisters Verified 09/05/24 11:22 amoxicillin Allergy Rash/Hives Verified 09/05/24 11:22 ciprofloxacin [From Cipro] AdvReac Dyspnea Verified 09/05/24 11:22 ciprofloxacin HCl AdvReac Dyspnea Verified 09/05/24 11:22 [From Cipro] Review of Systems ROS Statement: Those systems with pertinent positive or pertinent negative responses have been documented in the HPI. ROS Other: All systems not noted in ROS Statement are negative. Past Medical History Past Medical History: Asthma, Coronary Artery Disease (CAD), Cancer, Diabetes Mellitus, Hearing Disorder / Deafness, Hyperlipidemia, Hypertension, Neurologic Disorder, Osteoarthritis (OA), Pneumonia, Renal Disease, Thyroid Disorder Additional Past Medical History / Comment(s): Hx Pneumonia and Bronchitis. Hx right ovarian cancer had chemo - finished October 2017. 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 Neuropathy in hands and feet. Hard of hearing. Diverticulosis. History of Any Multi-Drug Resistant Organisms: ESBL, MRSA Date of last positivie culture/infection: 08/21/23 ESBL;08/31/22-MRSA MDRO Source:: Abdomen-MRSA; Urine-ESBL Past Surgical History: Appendectomy, Bowel Resection, Cholecystectomy, Hysterectomy, Joint Replacement, Orthopedic Surgery, Tonsillectomy Additional Past Surgical History / Comment(s): Exploratory laparotomy with ovarian tumor removal and lysis of adhesions, bilateral knee replacements, bilateral cataract removals, D&C/, glaucoma procedure left eye, non functioning neurostimlator removed, glaucoma surgery, colonoscopy, colostomy 03/20/2022-mult surgeries for draing wound w/ 2nd ostomy site for fistula draining rt lower abd, trigger finger release. Past Anesthesia/Blood Transfusion Reactions: No Reported Reaction Additional Past Anesthesia/Blood Transfusion Reaction / Comment(s): Family hx u nknown, patient was adopted. No hx blood transfusions Past Psychological History: Bipolar, Depression Smoking Status: Former smoker Past Alcohol Use History: Occasional Past Drug Use History: None Reported - Past Family History Father History Unknown: Yes Family Medical History: Unable to Obtain Additional Family Medical History / Comment(s): Pt is adopted and does not know parents medical history. General Exam Limitations: no limitations General appearance: alert, in no apparent distress Head exam: Present: atraumatic, normocephalic Eye exam: Present: normal appearance, PERRL Neck exam: Present: normal inspection Respiratory exam: Present: normal lung sounds bilaterally. Absent: respiratory distress, wheezes Cardiovascular Exam: Present: regular rate, normal rhythm GI/Abdominal exam: Present: soft, other (Dark stool in the ostomy). Absent: distended, tenderness Extremities exam: Present: normal inspection, normal capillary refill. Absent: calf tenderness Neurological exam: Present: alert, oriented X3. Absent: motor sensory deficit Skin exam: Present: dry, intact, pallor Course Vital Signs 09/05/24 09/05/24 09/05/24 11:14 11:55 13:12 Temperature 98.8 F Pulse Rate 97 103 H 105 H Respiratory 18 18 20 Rate Blood Pressure 137/48 98/67 154/81 O2 Sat by Pulse 97 96 96 Oximetry Medical Decision Making - Medical Decision Making Was pt. sent in by a medical professional or institution (, PA, NEWSPAPER CARRIERS SUPERVISOR, urgent care, hospital, or jail...) When possible be specific @ -No Did you speak to anyone other than the patient for history (EMS, parent, family, police, friend...)? What history was obtained from this source @ -No Did you review nursing and triage notes (agree or disagree)? Why? @ -I reviewed and agree with nursing and triage notes Were old charts reviewed (outside hosp., previous admission, EMS record, old EKG, old radiological studies, urgent care reports/EKG's, jail records)? Report findings @ -No old charts were reviewed Differential GI Bleed: Esophageal varices, aortoenteric fistula, Cherry-Ramos, gastritis, peptic ulcer disease, diverticulosis, inflammatory bowel disease, hemorrhoids, fissure, colitis, malignancy, Meckel's diverticulum, this is not meant to be an all- inclusive list. EKG interpreted by me (3pts min.). @ -Sinus rhythm rate of 95, CT interval 166, QRS duration 134, QTc 460 left anterior fascicular block, right bundle branch block X-rays interpreted by me (1pt min.). @ -None done CT interpreted by me (1pt min.). @ -None done U/S interpreted by me (1pt. min.). @ -None done What testing was considered but not performed or refused? (CT, X-rays, U/S, labs)? Why? @ -None What meds were considered but not given or refused? Why? @ -None Did you discuss the management of the patient with other professionals (professionals i.e. , PA, NEWSPAPER CARRIERS SUPERVISOR, lab, RT, psych nurse, social media community manager, abrasive mixer, teacher, access control officer, leather case finisher)? Give summary @Case discussed with Dr. Harrison who is familiar with the patient he recommends transfer for GI consultation. Discussed with the transfer team at [facility] accepting physician Dr. Gamez Was smoking cessation discussed for >3mins.? @ -No Was critical care preformed (if so, how long)? @ -No Were there social determinants of health that impacted care today? How? (Homelessness, low income, unemployed, alcoholism, drug addiction, transportation, low edu. Level, literacy, decrease access to med. care, half-way, rehab)? @ -No Was there de-escalation of care discussed even if they declined (Discuss DNR or withdrawal of care, Hospice)? DNR status @ -No What co-morbidities impacted this encounter? (DM, HTN, Smoking, COPD, CAD, Cancer, CVA, ARF, Chemo, Hep., AIDS, mental health diagnosis, sleep apnea, morbid obesity)? @ -History of upper GI bleed, history of colon resection status post colostomy Was patient admitted / discharged? Hospital course, mention meds given and route, prescriptions, significant lab abnormalities, going to OR and other pertinent info. @ -79-year-old female with dark stool from her ostomy this is heme positive. Hemoglobin is 10 from recent 13. Hemodynamics are stable. Patient is not on any anticoagulation. I did administer 80 mg of Protonix. This hospital does not currently have GI coverage and the patient will require transfer for further evaluation and treatment. Undiagnosed new problem with uncertain prognosis? @ -No Drug Therapy requiring intensive monitoring for toxicity (Heparin, Nitro, Insulin, Cardizem)? @ -No Were any procedures done? @ -No Diagnosis/symptom? @ -[Melena, anemia Acute, or Chronic, or Acute on Chronic? @ -Acute Uncomplicated (without systemic symptoms) or Complicated (systemic symptoms)? @Complicated Side effects of treatment? @ -No Exacerbation, Progression, or Severe Exacerbation? @ -No Poses a threat to life or bodily function? How? (Chest pain, USA, MT, pneumonia, PE, COPD, DKA, ARF, appy, cholecystitis, CVA, Diverticulitis, Homicidal, Suicidal, threat to staff... and all critical care pts) @ -Yes, GI bleed, hemorrhagic shock - Lab Data Result diagrams: 09/05/24 11:45 09/05/24 11:45 Lab Results 09/05/24 09/05/24 09/05/24 Range/Units 11:45 11:45 11:45 WBC 12.2 H (3.8-10.6) k/uL RBC 3.72 L (3.80-5.40) m/uL Hgb 10.4 L (11.4-16.0) gm/dL Hct 33.9 L (34.0-46.0) % MCV 91.0 (80.0-100.0) fL MCH 27.8 (25.0-35.0) pg MCHC 30.6 L (31.0-37.0) g/dL RDW 14.5 (11.5-15.5) % Plt Count 278 (150-450) k/uL MPV 8.4 Neutrophils % 83 % Lymphocytes % 8 % Monocytes % 5 % Eosinophils % 2 % Basophils % 0 % Neutrophils # 10.1 H (1.3-7.7) k/uL Lymphocytes # 1.0 (1.0-4.8) k/uL Monocytes # 0.6 (0-1.0) k/uL Eosinophils # 0.2 (0-0.7) k/uL Basophils # 0.0 (0-0.2) k/uL APTT 22.0 (22.0-30.0) sec Sodium (137-145) mmol/L Potassium (3.5-5.1) mmol/L Chloride (98-107) mmol/L Carbon Dioxide (22-30) mmol/L Anion Gap mmol/L BUN (7-17) mg/dL Creatinine (0.52-1.04) mg/dL Est GFR (CKD-EPI)AfAm (>60 ml/min/1.73 sqM) Est GFR (CKD-EPI)NonAf (>60 ml/min/1.73 sqM) Glucose (74-99) mg/dL Plasma Lactic Acid Konstantin (0.7-2.0) mmol/L Calcium (8.4-10.2) mg/dL Magnesium (1.6-2.3) mg/dL Total Bilirubin (0.2-1.3) mg/dL AST (14-36) U/L ALT (4-34) U/L Alkaline Phosphatase (38-126) U/L Total Protein (6.3-8.2) g/dL Albumin (3.5-5.0) g/dL Stool Occult Blood POSITVE (Negative) Blood Type Blood Type Recheck Bld Type Recheck Status Antibody Screen Spec Expiration Date 09/05/24 09/05/24 09/05/24 Range/Units 11:45 11:45 11:45 WBC (3.8-10.6) k/uL RBC (3.80-5.40) m/uL Hgb (11.4-16.0) gm/dL Hct (34.0-46.0) % MCV (80.0-100.0) fL MCH (25.0-35.0) pg MCHC (31.0-37.0) g/dL RDW (11.5-15.5) % Plt Count (150-450) k/uL MPV Neutrophils % % Lymphocytes % % Monocytes % % Eosinophils % % Basophils % % Neutrophils # (1.3-7.7) k/uL Lymphocytes # (1.0-4.8) k/uL Monocytes # (0-1.0) k/uL Eosinophils # (0-0.7) k/uL Basophils # (0-0.2) k/uL APTT (22.0-30.0) sec Sodium 136 L (137-145) mmol/L Potassium 5.0 (3.5-5.1) mmol/L Chloride 105 (98-107) mmol/L Carbon Dioxide 21 L (22-30) mmol/L Anion Gap 10 mmol/L BUN 85 H (7-17) mg/dL Creatinine 1.16 H (0.52-1.04) mg/dL Est GFR (CKD-EPI)AfAm 52 (>60 ml/min/1.73 sqM) Est GFR (CKD-EPI)NonAf 45 (>60 ml/min/1.73 sqM) Glucose 324 H (74-99) mg/dL Plasma Lactic Acid Konstantin 1.9 (0.7-2.0) mmol/L Calcium 8.3 L (8.4-10.2) mg/dL Magnesium 2.0 (1.6-2.3) mg/dL Total Bilirubin 0.4 (0.2-1.3) mg/dL AST 13 L (14-36) U/L ALT 13 (4-34) U/L Alkaline Phosphatase 96 (38-126) U/L Total Protein 5.6 L (6.3-8.2) g/dL Albumin 3.0 L (3.5-5.0) g/dL Stool Occult Blood (Negative) Blood Type B Negative Blood Type Recheck B Neg Bld Type Recheck Status No Antibody Screen NEGATIVE Spec Expiration Date 09/08/2024 - 2344 Disposition Clinical Impression: GI bleed, Anemia Disposition: OTHER INSTITUTION NOT DEFINED Condition: Stable Is patient prescribed a controlled substance at d/c from ED?: No Referrals: Linda Sanders MD [Primary Care Provider] - 1-2 days Time of Disposition: 13:07 - Out of Hospital Transfer - Req. Specs Out of Hospital Transfer - Requested Specifics: Other Emergency Center (Transfer to [facility])
[2024-09-05] MEDS: PANTOPRAZOLE 40 MG/10 ML VIAL IVP STA ×2 (11:50→14:32)
[2024-09-05 12:11] LABS: ALT 13 U/L (4-34); AST 13 U/L (14-36); African American GFR (CKD) 52 (>60 ml/min/1.73 sqM); Alkaline Phosphatase 96 U/L (38-126); Anion Gap 10 mmol/L; Blood Urea Nitrogen 85 mg/dL (7-17); Calcium 8.3 mg/dL (8.4-10.2); Carbon Dioxide 21 mmol/L (22-30); Chloride 105 mmol/L (98-107); Glucose 324 mg/dL (74-99); Non-African American GFR(CKD) 45 (>60 ml/min/1.73 sqM); Sodium 136 mmol/L (137-145); Total Bilirubin 0.4 mg/dL (0.2-1.3); Total Protein 5.6 g/dL (6.3-8.2)
[2024-09-05 12:13] LABS: Basophils % (A) 0 %; Eosinophils # (A) 0.2 k/uL (0-0.7); Eosinophils % (A) 2 %; HCT 33.9 % (34.0-46.0); HGB 10.4 gm/dL (11.4-16.0); Lymphocytes % (A) 8 %; MCH 27.8 pg (25.0-35.0); MCHC 30.6 g/dL (31.0-37.0); Mean Platelet Volume 8.4; Monocytes # (A) 0.6 k/uL (0-1.0); Monocytes % (A) 5 %; Neutrophils # (A) 10.1 k/uL (1.3-7.7); Neutrophils % (A) 83 %; Platelet Count 278 k/uL (150-450); RBC 3.72 m/uL (3.80-5.40); RDW 14.5 % (11.5-15.5); WBC 12.2 k/uL (3.8-10.6)
[2024-09-05] MEDS: HYDROmorphone 0.5 MG/0.5 ML SYRINGE IVP STA (13:08)
[2024-09-05 14:32] VITALS: RESP 18
[2024-09-05 15:32] VITALS: BP 150/79; PULSE 114; TEMP 98
== END 2024-09-05 15:31 | disposition other institution (70) ==
LOC: EC 11:12
DX: K92.2 Gastrointestinal hemorrhage, unspecified (principal); D64.9 Anemia, unspecified; K92.1 Melena; I45.2 Bifascicular block; Z87.891 Personal history of nicotine dependence
CPT/HCPCS: 36415; 93005; 86900; 86901; 80053; 83605; 83735; 85025; 85730; 86850; 82272; 99285; 96374; 96375; 96376; J1171; J2470

== ENCOUNTER 2024-09-14 18:53 | Inpatient (IN) | payer MEDICARE ==
[2024-09-14 19:50] LABS: Anisocytosis Slight; Basophils % (A) 0 %; Eosinophils # (A) 0.2 k/uL (0-0.7); Eosinophils % (A) 2 %; HCT 31.8 % (34.0-46.0); HGB 9.5 gm/dL (11.4-16.0); Hypochromasia Moderate; Lymphocytes # (A) 1.1 k/uL (1.0-4.8); Lymphocytes % (A) 12 %; MCHC 29.9 g/dL (31.0-37.0); MCV 93.6 fL (80.0-100.0); Mean Platelet Volume 8.3; Monocytes # (A) 0.6 k/uL (0-1.0); Monocytes % (A) 7 %; Neutrophils # (A) 7.1 k/uL (1.3-7.7); Neutrophils % (A) 77 %; Platelet Count 386 k/uL (150-450); RDW 16.9 % (11.5-15.5); WBC 9.2 k/uL (3.8-10.6)
[2024-09-14] MEDS: DILTIAZEM DRIP BOLUS FROM BAG 1 MG SOLN IV ONE (19:53)
[2024-09-14] MEDS: DILTIAZEM 125 MG in SODIUM CHLORIDE 0.9% 100 ML IV SCH (19:54)
[2024-09-14 20:04] LABS: Partial Thromboplastin Time 23.1 sec (22.0-30.0); Prothrombin Time 11.2 sec (10.0-12.5)
--- NOTE | 2024-09-14 20:04 | ED ---
General Adult HPI - General Chief complaint: Chest Pain Stated complaint: Tachycardia Time Seen by Provider: 09/14/24 19:10 Source: patient, EMS Mode of arrival: EMS Limitations: no limitations - History of Present Illness Initial comments: 79-year-old female with past medical history of A-fib, colostomy who presents emergency department for tachycardia. Patient was seen in the emergency department on the and transferred down to [facility] as she was having a GI bleed and we did not have GI on service. Patient reports that she did not receive her metoprolol for her A-fib throughout majority of her stay. Her heart rate was out of control. She was discharged on Sunday night. She states that she was discharged because she was requesting this. She did not feel safe there. She reports that yesterday and today she has been attempting to control her blood pressure and heart rate on her own by taking her metoprolol however heart rate continues to be in the 150s. She denies any chest pain or shortness of breath. She does not take any blood thinners. She denies history of congestive heart failure. Patient does wear 3 L of oxygen at all times. Patient follows with Dr. Garcia. No other alleviating, precipitating modifying factors - Related Data Home Medications Medication Instructions Recorded Confirmed Baclofen 10 mg PO QID PRN 01/06/16 09/14/24 DULoxetine HCL [Cymbalta] 60 mg PO DAILY 01/06/16 09/14/24 Atorvastatin Calcium [Lipitor] 40 mg PO HS 12/31/18 09/14/24 Docusate Sodium [Dok] 200 mg PO BID PRN 06/13/23 09/14/24 Insulin NPH Hum/Reg Insulin Hm 10 unit SQ AC-BID 06/13/23 09/14/24 [Novolin 70-30 100 Unit/ml Vial] Metoprolol Succinate (ER) [Toprol 75 mg PO BID 06/13/23 09/14/24 Xl] Pioglitazone HCl 15 mg PO DAILY 06/13/23 09/14/24 amLODIPine [Norvasc] 10 mg PO DAILY 08/21/23 09/14/24 Insulin Glargine/Lixisenatide 45 units SQ DAILY 09/14/24 09/14/24 [Soliqua 100 Unit-33 Mcg/ml Pen] Levothyroxine Sodium [Synthroid] 112 mcg PO DAILY 09/14/24 09/14/24 Pantoprazole [Protonix] 40 mg PO DAILY 09/14/24 09/14/24 busPIRone HCL [Buspar] 7.5 mg PO BID PRN 09/14/24 09/14/24 hydrALAZINE HCL [Apresoline] 50 mg PO BID 09/14/24 09/14/24 Previous Rx's Medication Instructions Recorded oxyCODONE HCL [oxyCODONE HCL (IR)] 10 mg PO Q6H PRN 3 Days #12 tab 03/23/22 Allergies Allergy/AdvReac Type Severity Reaction Status Date / Time adhesive Allergy blisters Verified 09/14/24 19:51 amoxicillin Allergy Rash/Hives Verified 09/14/24 19:51 ciprofloxacin [From Cipro] AdvReac Dyspnea Verified 09/14/24 19:51 ciprofloxacin HCl AdvReac Dyspnea Verified 09/14/24 19:51 [From Cipro] Review of Systems ROS Statement: Those systems with pertinent positive or pertinent negative responses have been documented in the HPI. ROS Other: All systems not noted in ROS Statement are negative. Past Medical History Past Medical History: Asthma, Coronary Artery Disease (CAD), Cancer, Diabetes Mellitus, Hearing Disorder / Deafness, Hyperlipidemia, Hypertension, Neurologic Disorder, Osteoarthritis (OA), Pneumonia, Renal Disease, Thyroid Disorder Additional Past Medical History / Comment(s): Hx Pneumonia and Bronchitis. Hx r ight ovarian cancer had chemo - finished October 2017. 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 Neuropathy in hands and feet. Hard of hearing. Diverticulosis. History of Any Multi-Drug Resistant Organisms: ESBL, MRSA Date of last positivie culture/infection: 08/21/23 ESBL;08/31/22-MRSA MDRO Source:: Abdomen-MRSA; Urine-ESBL Past Surgical History: Appendectomy, Bowel Resection, Cholecystectomy, Hysterectomy, Joint Replacement, Orthopedic Surgery, Tonsillectomy Additional Past Surgical History / Comment(s): Exploratory laparotomy with ovarian tumor removal and lysis of adhesions, bilateral knee replacements, bilateral cataract removals, D&C/, glaucoma procedure left eye, non functioning neurostimlator removed, glaucoma surgery, colonoscopy, colostomy 03/20/2022-mult surgeries for draing wound w/ 2nd ostomy site for fistula draining rt lower abd, trigger finger release. Past Anesthesia/Blood Transfusion Reactions: No Reported Reaction Additional Past Anesthesia/Blood Transfusion Reaction / Comment(s): Family hx unknown, patient was adopted. No hx blood transfusions Past Psychological History: Bipolar, Depression Smoking Status: Former smoker Past Alcohol Use History: Occasional Past Drug Use History: None Reported - Past Family History Father History Unknown: Yes Family Medical History: Unable to Obtain Additional Family Medical History / Comment(s): Pt is adopted and does not know parents medical history. General Exam Limitations: no limitations General appearance: alert, in no apparent distress Head exam: Present: atraumatic, normocephalic, normal inspection Eye exam: Present: normal appearance, PERRL, EOMI. Absent: scleral icterus, conjunctival injection, periorbital swelling ENT exam: Present: normal exam, mucous membranes moist Neck exam: Present: normal inspection. Absent: tenderness, meningismus, lymphadenopathy Respiratory exam: Present: normal lung sounds bilaterally. Absent: respiratory distress, wheezes, rales, rhonchi, stridor Cardiovascular Exam: Present: tachycardia, irregular rhythm, normal heart sounds. Absent: systolic murmur, diastolic murmur, rubs, gallop, clicks GI/Abdominal exam: Present: soft, normal bowel sounds, other (Colostomy left abdomen). Absent: distended, tenderness, guarding, rebound, rigid Extremities exam: Present: normal inspection, full ROM, normal capillary refill. Absent: tenderness, pedal edema, joint swelling, calf tenderness Back exam: Present: normal inspection Neurological exam: Present: alert, oriented X3, CN II-XII intact Psychiatric exam: Present: normal affect, normal mood Skin exam: Present: warm, dry, intact, normal color. Absent: rash Course Vital Signs 09/14/24 09/14/24 09/14/24 19:07 19:57 21:08 Temperature 98.8 F Pulse Rate 109 H 130 H 118 H Respiratory 19 19 19 Rate Blood Pressure 106/59 124/74 103/66 O2 Sat by Pulse 96 98 98 Oximetry 09/14/24 09/15/24 09/15/24 22:37 00:00 02:50 Temperature Pulse Rate 114 H 101 H 103 H Respiratory 20 19 22 Rate Blood Pressure 108/75 98/71 100/57 O2 Sat by Pulse 97 98 98 Oximetry 09/15/24 09/15/24 09/15/24 03:30 04:28 05:24 Temperature Pulse Rate 121 H 129 H 104 H Respiratory 18 18 18 Rate Blood Pressure 108/70 113/78 98/68 O2 Sat by Pulse 97 96 98 Oximetry 09/15/24 09/15/24 09/15/24 06:44 07:59 10:09 Temperature Pulse Rate 106 H 115 H 101 H Respiratory 18 15 19 Rate Blood Pressure 102/85 93/55 125/66 O2 Sat by Pulse 96 98 97 Oximetry 09/15/24 09/15/24 09/15/24 14:50 16:39 18:26 Temperature Pulse Rate 76 91 93 Respiratory 18 18 18 Rate Blood Pressure 109/54 117/91 118/85 O2 Sat by Pulse 99 97 97 Oximetry 09/15/24 09/15/24 09/15/24 20:50 22:10 23:20 Temperature 98.1 F Pulse Rate 103 H 103 H 86 Respiratory 16 20 18 Rate Blood Pressure 108/70 139/64 98/64 O2 Sat by Pulse 96 98 97 Oximetry Medical Decision Making - Medical Decision Making Was pt. sent in by a medical professional or institution (, PA, SOLUTIONS SALES EXECUTIVE, urgent care, hospital, or long-term...) When possible be specific @ -No Did you speak to anyone other than the patient for history (EMS, parent, family, police, friend...)? What history was obtained from this source @ -Spoke with EMS for history Did you review nursing and triage notes (agree or disagree)? Why? @ -I reviewed and agree with nursing and triage notes Were old charts reviewed (outside hosp., previous admission, EMS record, old EKG, old radiological studies, urgent care reports/EKG's, long-term records)? Report findings @ -I reviewed the patient's ED visit from September 05 Differential Diagnosis (chest pain, altered mental status, abdominal pain women, abdominal pain men, vaginal bleeding, weakness, fever, dyspnea, syncope, headache, dizziness, GI bleed, back pain, seizure, CVA, palpatations, mental health, musculoskeletal)? @ -Differential Palpitations Ventricular arrhythmias, atrial arrhythmias, myocardial infarction, anemia, thyrotoxicosis, electrolyte imbalance, hypokalemia, pulmonary embolism, pulmona ry disease, drugs, alcohol, anxiety, stress.... This is not meant to be an all-inclusive list. EKG interpreted by me (3pts min.). @ -Yes and demonstrates A-fib with a rate of 132. QRS 133. QTc of 375. Right bundle branch block X-rays interpreted by me (1pt min.). @ -Yes which demonstrates signs of congestive heart failure CT interpreted by me (1pt min.). @ -None done U/S interpreted by me (1pt. min.). @ -None done What testing was considered but not performed or refused? (CT, X-rays, U/S, labs)? Why? @ -None What meds were considered but not given or refused? Why? @ -None Did you discuss the management of the patient with other professionals (professionals i.e. , PA, SOLUTIONS SALES EXECUTIVE, lab, RT, psych nurse, social media strategist, advertising executive, teacher, morale officer, manager of case)? Give summary @ -Spoke with Dr. Martel for admission Was smoking cessation discussed for >3mins.? @ -No Was critical care preformed (if so, how long)? @ -35 minutes for management of rapid A-fib Were there social determinants of health that impacted care today? How? (Homelessness, low income, unemployed, alcoholism, drug addiction, transportation, low edu. Level, literacy, decrease access to med. care, fpc, rehab)? @ -No Was there de-escalation of care discussed even if they declined (Discuss DNR or withdrawal of care, Hospice)? DNR status @ -No What co-morbidities impacted this encounter? (DM, HTN, Smoking, COPD, CAD, Cancer, CVA, ARF, Chemo, Hep., AIDS, mental health diagnosis, sleep apnea, morbid obesity)? @ -A-fib, chronic respiratory insufficiency Was patient admitted / discharged? Hospital course, mention meds given and route, prescriptions, significant lab abnormalities, going to OR and other pe rtinent info. @ -Upon arrival patient seen and evaluated in bed 14. Thorough history and physical exam was performed. IV access was established. Laboratory studies are conducted. Patient is started on a Cardizem drip due to her rapid rate. Chest x-ray was performed which demonstrates possible vascular congestion. Patient does wear oxygen at home and is saturating well on her normal 2 L. I recommended admission with cardiology consultation. Patient was agreeable to this. Patient admitted to the floor in stable condition Undiagnosed new problem with uncertain prognosis? @ -No Drug Therapy requiring intensive monitoring for toxicity (Heparin, Nitro, Insulin, Cardizem)? @ -Cardizem Were any procedures done? @ -No Diagnosis/symptom? @ -Acute palpitations, A-fib with RVR, possible CHF exacerbation Acute, or Chronic, or Acute on Chronic? @ -Acute Uncomplicated (without systemic symptoms) or Complicated (systemic symptoms)? @ -Complicated Side effects of treatment? @ -No Exacerbation, Progression, or Severe Exacerbation? @ -No Poses a threat to life or bodily function? How? (Chest pain, USA, ID, pneumonia, PE, COPD, DKA, ARF, appy, cholecystitis, CVA, Diverticulitis, Homicidal, Suicidal, threat to staff... and all critical care pts) @ -Yes as patient has rapid A-fib - Lab Data Result diagrams: 09/15/24 08:17 09/15/24 08:00 Lab Results 09/14/24 09/14/24 09/14/24 Range/Units 19:32 19:32 19:32 WBC 9.2 (3.8-10.6) k/uL RBC 3.40 L (3.80-5.40) m/uL Hgb 9.5 L (11.4-16.0) gm/dL Hct 31.8 L (34.0-46.0) % MCV 93.6 (80.0-100.0) fL MCH 28.0 (25.0-35.0) pg MCHC 29.9 L (31.0-37.0) g/dL RDW 16.9 H (11.5-15.5) % Plt Count 386 (150-450) k/uL MPV 8.3 Neutrophils % 77 % Lymphocytes % 12 % Monocytes % 7 % Eosinophils % 2 % Basophils % 0 % Neutrophils # 7.1 (1.3-7.7) k/uL Lymphocytes # 1.1 (1.0-4.8) k/uL Monocytes # 0.6 (0-1.0) k/uL Eosinophils # 0.2 (0-0.7) k/uL Basophils # 0.0 (0-0.2) k/uL Hypochromasia Moderate Anisocytosis Slight PT 11.2 (10.0-12.5) sec INR 1.0 (<1.2) APTT 23.1 (22.0-30.0) sec Sodium 136 L (137-145) mmol/L Potassium 4.3 (3.5-5.1) mmol/L Chloride 98 (98-107) mmol/L Carbon Dioxide 32 H (22-30) mmol/L Anion Gap 6 mmol/L BUN 19 H (7-17) mg/dL Creatinine 1.10 H (0.52-1.04) mg/dL Est GFR (CKD-EPI)AfAm 55 (>60 ml/min/1.73 sqM) Est GFR (CKD-EPI)NonAf 48 (>60 ml/min/1.73 sqM) Glucose 217 H (74-99) mg/dL Calcium 8.9 (8.4-10.2) mg/dL Magnesium 1.9 (1.6-2.3) mg/dL Total Bilirubin 0.6 (0.2-1.3) mg/dL AST 36 (14-36) U/L ALT 73 H (4-34) U/L Alkaline Phosphatase 195 H (38-126) U/L Troponin I (0.000-0.034) ng/mL NT-Pro-B Natriuret Pep 10393 pg/mL Total Protein 6.5 (6.3-8.2) g/dL Albumin 3.6 (3.5-5.0) g/dL TSH 2.010 (0.465-4.680) mIU/L 09/14/24 Range/Units 19:32 WBC (3.8-10.6) k/uL RBC (3.80-5.40) m/uL Hgb (11.4-16.0) gm/dL Hct (34.0-46.0) % MCV (80.0-100.0) fL MCH (25.0-35.0) pg MCHC (31.0-37.0) g/dL RDW (11.5-15.5) % Plt Count (150-450) k/uL MPV Neutrophils % % Lymphocytes % % Monocytes % % Eosinophils % % Basophils % % Neutrophils # (1.3-7.7) k/uL Lymphocytes # (1.0-4.8) k/uL Monocytes # (0-1.0) k/uL Eosinophils # (0-0.7) k/uL Basophils # (0-0.2) k/uL Hypochromasia Anisocytosis PT (10.0-12.5) sec INR (<1.2) APTT (22.0-30.0) sec Sodium (137-145) mmol/L Potassium (3.5-5.1) mmol/L Chloride (98-107) mmol/L Carbon Dioxide (22-30) mmol/L Anion Gap mmol/L BUN (7-17) mg/dL Creatinine (0.52-1.04) mg/dL Est GFR (CKD-EPI)AfAm (>60 ml/min/1.73 sqM) Est GFR (CKD-EPI)NonAf (>60 ml/min/1.73 sqM) Glucose (74-99) mg/dL Calcium (8.4-10.2) mg/dL Magnesium (1.6-2.3) mg/dL Total Bilirubin (0.2-1.3) mg/dL AST (14-36) U/L ALT (4-34) U/L Alkaline Phosphatase (38-126) U/L Troponin I <0.012 (0.000-0.034) ng/mL NT-Pro-B Natriuret Pep pg/mL Total Protein (6.3-8.2) g/dL Albumin (3.5-5.0) g/dL TSH (0.465-4.680) mIU/L Disposition Clinical Impression: Atrial fibrillation with RVR Disposition: ADMITTED IP TO THIS [facility] Condition: Stable Is patient prescribed a controlled substance at d/c from ED?: No Time of Disposition: 20:13 Decision to Admit Reason: Admit from EC Decision Date: 09/14/24 Decision Time: 20:13
[2024-09-14] MEDS ORDERED: NALOXONE 0.4 MG/ML 1 ML VIAL IV PRN (20:13)
--- NOTE | 2024-09-14 20:16 | XR ---
EXAMINATION TYPE: XR chest 2V DATE OF EXAM: 09/14/2024 8:12 PM COMPARISON: Chest radiographs from 08/21/2023 CLINICAL INDICATION: Female, 79 years old with history of dysrhythmia; [facility] TECHNIQUE: XR chest 2V Frontal and lateral views of the chest. FINDINGS: Lungs/Pleura: There is no evidence of pleural effusion, focal consolidation, or pneumothorax. Pulmonary vascularity: Pulmonary vascular congestion. Heart/mediastinum: Cardiomediastinal silhouette is enlarged and stable. Atherosclerotic calcificatio ns are seen in the aorta. Musculoskeletal: No acute osseous pathology. Left shoulder arthroplasty appears intact IMPRESSION: Cardiomegaly and mild pulmonary vascular congestion. Correlate with BNP for congestive heart failure. [facility] Delia Rivera, , 09/14/2024 8:14 PM
[2024-09-14 20:24] LABS: ALT 73 U/L (4-34); AST 36 U/L (14-36); African American GFR (CKD) 55 (>60 ml/min/1.73 sqM); Albumin 3.6 g/dL (3.5-5.0); Alkaline Phosphatase 195 U/L (38-126); Anion Gap 6 mmol/L; Blood Urea Nitrogen 19 mg/dL (7-17); Calcium 8.9 mg/dL (8.4-10.2); Carbon Dioxide 32 mmol/L (22-30); Chloride 98 mmol/L (98-107); Glucose 217 mg/dL (74-99); Magnesium 1.9 mg/dL (1.6-2.3); Non-African American GFR(CKD) 48 (>60 ml/min/1.73 sqM); Potassium 4.3 mmol/L (3.5-5.1); Sodium 136 mmol/L (137-145); Total Bilirubin 0.6 mg/dL (0.2-1.3); Total Protein 6.5 g/dL (6.3-8.2)
[2024-09-14 20:33] LABS: NT-Pro-B-Type Natriuretic Pept 10700 pg/mL
[2024-09-14] MEDS ORDERED: DEXTROSE 50% SYRINGE 50 ML IVP PRN ×2 (21:32)
[2024-09-14 22:33] LABS: Glucose,Whole Blood 197 mg/dL (70-110)
[2024-09-14] MEDS: ATORVASTATIN 40 MG TAB PO SCH (22:35)
[2024-09-14] MEDS: METOPROLOL SUCCINATE (ER) 25 MG TAB.ER.24H PO SCH (22:35)
[2024-09-14] MEDS: INSULIN LISPRO (HumaLOG) 100 UNIT/ML 10 mL VL SQ SCH (22:36)
[2024-09-15] MEDS: LEVOTHYROXINE 112 MCG TAB PO SCH (05:34)
[2024-09-15 08:11] LABS: Glucose,Whole Blood 175 mg/dL (70-110)
[2024-09-15] MEDS: PANTOPRAZOLE 40 MG TABLET PO SCH ×2 (08:29→20:43)
[2024-09-15] MEDS: DULoxetine HCL 60 MG CAPSULE.DR PO SCH (08:29)
[2024-09-15] MEDS: METOPROLOL SUCCINATE (ER) 100 MG TAB.ER.24H PO SCH (08:29)
[2024-09-15 08:41] LABS: Anisocytosis Slight; Basophils % (A) 0 %; Eosinophils # (A) 0.3 k/uL (0-0.7); Eosinophils % (A) 5 %; HCT 31.4 % (34.0-46.0); HGB 9.3 gm/dL (11.4-16.0); Hypochromasia Marked; Lymphocytes # (A) 1.2 k/uL (1.0-4.8); Lymphocytes % (A) 17 %; MCH 28.4 pg (25.0-35.0); MCHC 29.6 g/dL (31.0-37.0); MCV 95.8 fL (80.0-100.0); Macrocytosis Slight; Mean Platelet Volume 8.3; Monocytes # (A) 0.6 k/uL (0-1.0); Monocytes % (A) 9 %; Neutrophils # (A) 4.7 k/uL (1.3-7.7); Neutrophils % (A) 66 %; Platelet Count 380 k/uL (150-450); RBC 3.28 m/uL (3.80-5.40); RDW 16.9 % (11.5-15.5); WBC 7.1 k/uL (3.8-10.6)
[2024-09-15 08:46] LABS: African American GFR (CKD) 53 (>60 ml/min/1.73 sqM); Anion Gap 6 mmol/L; Blood Urea Nitrogen 19 mg/dL (7-17); Calcium 8.5 mg/dL (8.4-10.2); Carbon Dioxide 33 mmol/L (22-30); Chloride 99 mmol/L (98-107); Glucose 159 mg/dL (74-99); Non-African American GFR(CKD) 46 (>60 ml/min/1.73 sqM); Potassium 4.3 mmol/L (3.5-5.1); Sodium 138 mmol/L (137-145)
[2024-09-15 08:54] LABS: Partial Thromboplastin Time 22.6 sec (22.0-30.0); Prothrombin Time 11.5 sec (10.0-12.5)
[2024-09-15] MEDS: HEPARIN SODIUM 1,000 UN/ML (10ML VL) IV ONE (09:04)
[2024-09-15] MEDS: HEPARIN SOD,PORK IN 0.45% NACL 25,000 UNIT in 0.45% NACL 1 250ML.BAG IV SCH (09:05)
[2024-09-15] MEDS: NON FORMULARY DRUG (Insulin Glargine/Lixisenatide [Soliqua 100 Unit-33 Mcg/Ml Pen] 3 ML In SQ SCH (10:06)
[2024-09-15] MEDS: PIOGLITAZONE 15 MG TAB PO SCH (10:07)
[2024-09-15] MEDS: INSULIN NPL/INSULIN LISPRO 100 UNIT/ML 10 ML VL (Humalog 75/25) SQ SCH (10:08)
--- NOTE | 2024-09-15 11:06 | P.CRDCN ---
History of Present Illness History of present illness: HISTORY OF PRESENT ILLNESS: This is a 79-year-old female with a past medical history significant for hypertension, hyperlipidemia and paroxysmal atrial fibrillation. Patient follows in the office with Dr. Gage. We have been asked to see the patient in consultation for A-fib with RVR. Patient examined at the bedside in the ER. Patient presented to the hospital with a chief complaint of shortness of breath and palpitations. She also reports feeling weak and nauseated. The patient was found to be in A-fib with RVR. She was started on IV Cardizem. She remains in atrial fibrillation with a heart rate between 10277. The patient does have a known history of atrial fibrillation. The patient was previously on anticoagulation with Eliquis but she states she was unable to afford it. She is not taking any blood thinners at this time. DIAGNOSTICS: - EKG reveals A-fib with RVR. - Chest xray cardiomegaly and mild pulmonary vascular congestion - Laboratory data: WBC 7.1. Hemoglobin 9.3. Platelet count 380. Sodium 138. Potassium 4.3. BUN 19. Creatinine 1.14. Troponin negative x 1. proBNP 10,700. TSH 2.010. - Current home cardiac medications include Lipitor 40 mg at night, amlodipine 10 mg daily, metoprolol succinate 75 mg twice a day. - Most recent echocardiogram obtained in July 2022 revealed ejection fraction 50 to 55%, mild aortic regurgitation, mild mitral stenosis, mild tricuspid regurgitation - Cardiac catheterization history: August 2019 revealing mild nonobstructive CAD REVIEW OF SYSTEMS: At the time of my exam: CONSTITUTIONAL: Denies fever or chills. HEENT: Denies blurred vision, vision changes, or eye pain. Denies hemoptysis CARDIOVASCULAR: Denies chest pain. Denies orthopnea. Denies PND. Denies palpitations RESPIRATORY: Denies shortness of breath. GASTROINTESTINAL: Denies abdominal pain. Denies nausea or vomiting. HEMATOLOGIC: Denies bleeding disorders. GENITOURINARY: Denies any blood in urine. SKIN: Denies pruitis. Denies rash. PHYSICAL EXAM: VITAL SIGNS: Reviewed. GENERAL: Well-developed in no acute distress. HEENT: Head is normocephalic. Pupils are equal, round. Sclerae anicteric. Mucous membranes of the mouth are moist. Neck supple. No JVD or thyromegaly LUNGS: Respirations even and unlabored. Lungs essentially clear to auscultation bilaterally. HEART: Mildly tachycardic. Irregular rate and rhythm. S1 and S2 heard. ABDOMEN: Soft. Nondistended. Nontender. EXTREMITIES: Normal range of motion. No clubbing or cyanosis. Peripheral pulses intact. No lower extremity edema NEUROLOGIC: Awake and alert. Oriented x 3. ASSESSMENT: Paroxysmal atrial fibrillation with RVR Acute heart failure with preserved EF, proBNP 10,700 Hypertension Hyperlipidemia Mild nonobstructive CAD Morbid obesity: BMI 49.9 PLAN: Obtain 2D echo to assess cardiac structure and function Decrease Cardizem drip to 5 mg an hour. If patient's heart rates remain controlled, then discontinue IV Cardizem altogether Begin IV heparin Patient previously on Eliquis and unable to afford co-pay. Prescription for Xarelto sent to the pharmacy. Case management notified to determine patient's co-pay. If patient unable to afford Xarelto, will begin Coumadin. Increase metoprolol succinate to 100 mg twice a day Add small dose of oral Lasix 20 mg daily TSH checked and within normal limits Continue telemetry monitoring Further recommendations pending patient course Nurse practitioner note has been reviewed by physician. Signing provider agrees with the documented findings, assessment, and plan of care documented by ANALYTICAL STRATEGIST as a scribe. Past Medical History Past Medical History: Asthma, Coronary Artery Disease (CAD), Cancer, Diabetes Mellitus, Hearing Disorder / Deafness, Hyperlipidemia, Hypertension, Neurologic Disorder, Osteoarthritis (OA), Pneumonia, Renal Disease, Thyroid Disorder Additional Past Medical History / Comment(s): Hx Pneumonia and Bronchitis. Hx right ovarian cancer had chemo - finished October 2017. 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 Has colostomy- left abd abd,has 2nd ostomy rt lower abd area from small intestinal fistula draining-follows now w/ Dr Zoie KoromaVzrqhp[facility]. Neuropathy in hands and feet. Hard of hearing. Diverticulosis. History of Any Multi-Drug Resistant Organisms: ESBL, MRSA Date of last positivie culture/infection: 08/21/23 ESBL;08/31/22-MRSA MDRO Source:: Abdomen-MRSA; Urine-ESBL Past Surgical History: Appendectomy, Bowel Resection, Cholecystectomy, Hysterectomy, Joint Replacement, Orthopedic Surgery, Tonsillectomy Additional Past Surgical History / Comment(s): Exploratory laparotomy with ovarian tumor removal and lysis of adhesions, bilateral knee replacements, bilateral cataract removals, D&C/, glaucoma procedure left eye, non functioning neurostimlator removed, glaucoma surgery, colonoscopy, colostomy 03/20/2022-mult surgeries for draing wound w/ 2nd ostomy site for fistula draining rt lower abd, trigger finger release. Past Anesthesia/Blood Transfusion Reactions: No Reported Reaction Additional Past Anesthesia/Blood Transfusion Reaction / Comment(s): Family hx unknown, patient was adopted. No hx blood transfusions Past Psychological History: Bipolar, Depression Smoking Status: Former smoker Past Alcohol Use History: Occasional Past Drug Use History: None Reported - Past Family History Father History Unknown: Yes Family Medical History: Unable to Obtain Additional Family Medical History / Comment(s): Pt is adopted and does not know parents medical history. Medications and Allergies Home Medications Medication Instructions Recorded Confirmed Type Baclofen 10 mg PO QID PRN 01/06/16 09/14/24 History DULoxetine HCL [Cymbalta] 60 mg PO DAILY 01/06/16 09/14/24 History Atorvastatin Calcium [Lipitor] 40 mg PO HS 12/31/18 09/14/24 History oxyCODONE HCL [oxyCODONE HCL (IR)] 10 mg PO Q6H PRN 3 Days #12 tab 03/23/22 09/14/24 Rx Docusate Sodium [Dok] 200 mg PO BID PRN 06/13/23 09/14/24 History Insulin NPH Hum/Reg Insulin Hm 10 unit SQ AC-BID 06/13/23 09/14/24 History [Novolin 70-30 100 Unit/ml Vial] Metoprolol Succinate (ER) [Toprol 75 mg PO BID 06/13/23 09/14/24 History Xl] Pioglitazone HCl 15 mg PO DAILY 06/13/23 09/14/24 History amLODIPine [Norvasc] 10 mg PO DAILY 08/21/23 09/14/24 History Insulin Glargine/Lixisenatide 45 units SQ DAILY 09/14/24 09/14/24 History [Soliqua 100 Unit-33 Mcg/ml Pen] Levothyroxine Sodium [Synthroid] 112 mcg PO DAILY 09/14/24 09/14/24 History Pantoprazole [Protonix] 40 mg PO DAILY 09/14/24 09/14/24 History busPIRone HCL [Buspar] 7.5 mg PO BID PRN 09/14/24 09/14/24 History hydrALAZINE HCL [Apresoline] 50 mg PO BID 09/14/24 09/14/24 History Allergies Allergy/AdvReac Type Severity Reaction Status Date / Time adhesive Allergy blisters Verified 09/14/24 19:51 amoxicillin Allergy Rash/Hives Verified 09/14/24 19:51 ciprofloxacin [From Cipro] AdvReac Dyspnea Verified 09/14/24 19:51 ciprofloxacin HCl AdvReac Dyspnea Verified 09/14/24 19:51 [From Cipro] Physical Exam Vitals: Vital Signs Temp Pulse Resp BP Pulse Ox 09/15/24 10:09 101 H 19 125/66 97 09/15/24 07:59 115 H 15 93/55 98 09/15/24 06:44 106 H 18 102/85 96 09/15/24 05:24 104 H 18 98/68 98 09/15/24 04:28 129 H 18 113/78 96 09/15/24 03:30 121 H 18 108/70 97 09/15/24 02:50 103 H 22 100/57 98 09/15/24 00:00 101 H 19 98/71 98 09/14/24 22:37 114 H 20 108/75 97 09/14/24 21:08 118 H 19 103/66 98 09/14/24 19:57 130 H 19 124/74 98 09/14/24 19:07 98.8 F 109 H 19 106/59 96 Intake and Output 09/14/24 09/15/24 09/15/24 22:59 06:59 14:59 Intake Total 120.833 Balance 120.833 Intake: Intake, IV Titration 120.833 Amount Diltiazem 125 mg In 120.833 Sodium Chloride 0.9% 100 ml @ 10 MG/HR 10 mls/hr IV .[id number] [facility] Rx#: [id number] Other: Weight 136.078 kg Results 09/15/24 08:17 09/15/24 08:00 Cardiac Enzymes 09/14/24 09/14/24 Range/Units 19:32 19:32 AST 36 (14-36) U/L Troponin I <0.012 (0.000-0.034) ng/mL Coagulation 09/14/24 09/15/24 Range/Units 19:32 08:17 PT 11.2 11.5 (10.0-12.5) sec APTT 23.1 22.6 (22.0-30.0) sec CBC 09/14/24 09/15/24 Range/Units 19:32 08:17 WBC 9.2 7.1 (3.8-10.6) k/uL RBC 3.40 L 3.28 L (3.80-5.40) m/uL Hgb 9.5 L 9.3 L (11.4-16.0) gm/dL Hct 31.8 L 31.4 L (34.0-46.0) % Plt Count 386 380 (150-450) k/uL Comprehensive Metabolic Panel 09/14/24 09/15/24 Range/Units 19:32 08:00 Sodium 136 L 138 (137-145) mmol/L Potassium 4.3 4.3 (3.5-5.1) mmol/L Chloride 98 99 (98-107) mmol/L Carbon Dioxide 32 H 33 H (22-30) mmol/L BUN 19 H 19 H (7-17) mg/dL Creatinine 1.10 H 1.14 H (0.52-1.04) mg/dL Glucose 217 H 159 H (74-99) mg/dL Calcium 8.9 8.5 (8.4-10.2) mg/dL AST 36 (14-36) U/L ALT 73 H (4-34) U/L Alkaline Phosphatase 195 H (38-126) U/L Total Protein 6.5 (6.3-8.2) g/dL Albumin 3.6 (3.5-5.0) g/dL Current Medications Generic Name Dose Route Start Last Admin Trade Name Freq PRN Reason Stop Dose Admin Atorvastatin Calcium 40 mg 09/14/24 21:30 09/14/24 22:35 Atorvastatin 40 Mg Tab PO 40 mg HS [place] Administration Baclofen 10 mg 09/14/24 21:29 Baclofen 10 Mg Tab PO QID PRN Muscle Spasm Buspirone HCl 7.5 mg 09/14/24 21:29 Buspirone Hcl 5 Mg Tab PO BID PRN Anxiety Dextrose/Water 25 ml 09/14/24 21:32 Dextrose 50% Syringe 50 Ml IVP PER PROTOCOL PRN Hypoglycemia Protocol Dextrose/Water 50 ml 09/14/24 21:32 Dextrose 50% Syringe 50 Ml IVP PER PROTOCOL PRN Hypoglycemia Protocol Duloxetine HCl 60 mg 09/15/24 09:00 09/15/24 08:29 Duloxetine Hcl 60 Mg Capsule.Dr PO 60 mg DAILY [place] Administration Heparin Sodium (Porcine) 0 unit 09/15/24 07:57 Heparin Sodium 1,000 Un/Ml (10ml Vl) IV PER PROTOCOL PRN Low PTT Protocol Diltiazem HCl 125 mg/ Sodium 125 mls @ 10 mls/hr 09/14/24 19:15 09/15/24 07:59 Chloride IV 5 mg/hr .[id number] [place] 5 mls/hr Infusion 10 MG/HR Heparin Sodium/Sodium Chloride 250 mls @ 10.07 mls/hr 09/15/24 08:00 09/15/24 09:05 25,000 unit/ Sodium Chloride IV 7.4 units/kg/hr .Q24H [place] 10.07 mls/hr Administration Protocol 7.4 UNITS/KG/HR Insulin Human Lispro 0 unit 09/14/24 21:32 09/15/24 08:29 Insulin Lispro (Humalog) 100 Unit/Ml 10 Ml Vl SQ 3 unit ACHS [facility] Administration Protocol Insulin Lispro Protam/Lispro Human 10 unit 09/15/24 07:30 09/15/24 10:08 Insulin Npl/Insulin Lispro 100 Unit/Ml 10 Ml Vl (Humalog 75/25) SQ 10 unit AC-BID [place] Administration Levothyroxine Sodium 112 mcg 09/15/24 06:30 09/15/24 05:34 Levothyroxine 112 Mcg Tab PO 112 mcg DAILY@0630 [place] Administration Metoprolol Succinate 100 mg 09/15/24 09:00 09/15/24 08:29 Metoprolol Succinate (Er) 100 Mg Tab.Er.24h PO 100 mg BID [place] Administration Naloxone HCl 0.2 mg 09/14/24 20:13 Naloxone 0.4 Mg/Ml 1 Ml Vial IV Q2M PRN Opioid Reversal Non-Formulary Medication 45 units 09/15/24 09:00 09/15/24 10:06 Insulin Glargine/Lixisenatide [Soliqua 100 Unit-33 Mcg/Ml Pen] SQ Not Given DAILY M[facility]ISON Oxycodone HCl 10 mg 09/14/24 21:29 09/15/24 04:13 Oxycodone Hcl 5 Mg Tab PO 10 mg Q6H PRN Administration Pain Pantoprazole Sodium 40 mg 09/15/24 09:00 09/15/24 08:29 Pantoprazole 40 Mg Tablet PO 40 mg DAILY [place] Administration Pioglitazone HCl 15 mg 09/15/24 09:00 09/15/24 10:07 Pioglitazone 15 Mg Tab PO 15 mg DAILY [place] Administration Intake and Output 09/14/24 09/15/24 09/15/24 22:59 06:59 14:59 Intake Total 120.833 Balance 120.833 Intake: Intake, IV Titration 120.833 Amount Diltiazem 125 mg In 120.833 Sodium Chloride 0.9% 100 ml @ 10 MG/HR 10 mls/hr IV .[id number] [facility] Rx#: [id number] Other: Weight 136.078 kg 09/15/24 08:17 09/15/24 08:00
[2024-09-15 12:07] LABS: Glucose,Whole Blood 244 mg/dL (70-110)
[2024-09-15] MEDS: FUROSEMIDE 20 MG TAB PO SCH (12:48)
[2024-09-15] MEDS: HEPARIN SODIUM 1,000 UN/ML (10ML VL) IV PRN (16:34)
[2024-09-15 17:08] LABS: Glucose,Whole Blood 217 mg/dL (70-110)
[2024-09-15] MEDS: WARFARIN 5 MG TAB PO ONE (18:36)
--- NOTE | 2024-09-15 20:15 | P.HPIM ---
History of Present Illness H&P Date: 09/15/24 Chief Complaint: Heart racing Pleasant 79-year-old patient who follows with Shelia Sanders. Patient was seen by me this afternoon in the ER. Chronic medical conditions include diabetes, depression, hypothyroid, essential hypertension, chronic low back pain. 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 With drains slowly. Patient was just discharged from [facility] where she was there for 8 days. Discharged 3 days ago. Patient had presented here at [facility] ER on September 05. With dark stools. She was then transferred to [facility]. She was told she has a bleeding ulcer there. Patient's pain had heart racing for about a week. More so in the last 2 3 days. Having some nausea. Some shortness of breath. Found to be in atrial fibrillation. Started Cardizem drip 5 mg an hour. Review of systems: GEN.: Tired EYES: None HEENT: Decreased hearing NECK: None RESPIRATORY: As above CARDIOVASCULAR: No edema GASTROINTESTINAL: Left colostomy. 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 GENITOURINARY: None MUSCULOSKELETAL: Chronic low back pain e LYMPHATICS: None HEMATOLOGICAL: None PSYCHIATRY: None NEUROLOGICAL: Does use a walker and a rollator Social history: Does use a walker and a rollator. Lives alone. Spoke for 38 years. 1 to 2 packs a day. Stopped in 1997. Alcohol occasionally. Physical examination: VITAL SIGNS: Afebrile, heart rate up to 120s, 18, 102 85, 96% 3 L GENERAL: BMI 49.9, reclining bed awake eating. EYES: Pupils equal. Conjunctiva paco l. HEENT: External appearance of nose and ears normal, oral cavity grossly normal. NECK: JVD unable to assess; masses not palpable. HEART: Heart sounds irregular l; no edema. LUNGS: Respiratory rate increased, decreased breath sounds. ABDOMEN: Soft, nontender, liver spleen not palpable, no masses palpable. Left- sided colostomy with brown stool. Lower abdominal fistula. PSYCH: Alert and oriented x3; mood and affect paco l. MUSCULOSKELETAL:No Clubbing/cyanosis;muscles-grossly intact. OA NEUROLOGICAL: Cranial nerves grossly intact; no facial asymmetry, power and sensation grossly intact. LYMPHATICS: No lymph nodes palpable in the axilla and neck INVESTIGATIONS, reviewed in the clinical context: September 15: White count 7.1 hemoglobin 9.3 platelet 380 sodium 138 potassium 4.3 BUN 19 creatinine 1.14 EKG tracing personally reviewed by me-atrial fibrillation. Rate 132. Right bundle fariha block pattern. Some ST-T wave changes. Chest x-ray film personally reviewed by me-underpenetrated/pulm edema Assessment and plan: -New onset atrial fibrillation with a rapid ventricular rate IV Cardizem drip 5 mg an hour. 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 Does use a daily 4 x 4 dressing. With some drainage chronically -Chronic diverticulitis with frozen pelvis -Diabetes mellitus type 2, chronically on insulin and oral hypoglycemic Follow Accu-Cheks and sliding scale. Resume home dose of insulin. -Depression Cymbalta -Recently diagnosed bleeding peptic ulcer Protonix -Hypothyroid Synthroid 112 mcg -Essential hypertension Toprol-XL, amlodipine -Chronic low back pain from arthritis oxycodone Given that patient states she has been diagnosed with bleeding peptic ulcer last week at [facility] will obtain records of the same. Increase Protonix to twice daily. DC IV heparin Past Medical History Past Medical History: Asthma, Coronary Artery Disease (CAD), Cancer, Diabetes Mellitus, Hearing Disorder / Deafness, Hyperlipidemia, Hypertension, Neurologic Disorder, Osteoarthritis (OA), Pneumonia, Renal Disease, Thyroid Disorder Additional Past Medical History / Comment(s): Hx Pneumonia and Bronchitis. Hx right ovarian cancer had chemo - finished October 2017. 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 Has colostomy- left abd abd,has 2nd ostomy rt lower abd area from small intestinal fistula draining-follows now w/ Dr Zoie KoromaTycwse[facility]. Neuropathy in hands and feet. Hard of hearing. Diverticulosis. History of Any Multi-Drug Resistant Organisms: ESBL, MRSA Date of last positivie culture/infection: 08/21/23 ESBL;08/31/22-MRSA MDRO Source:: Abdomen-MRSA; Urine-ESBL Past Surgical History: Appendectomy, Bowel Resection, Cholecystectomy, Hysterectomy, Joint Replacement, Orthopedic Surgery, Tonsillectomy Additional Past Surgical History / Comment(s): Exploratory laparotomy with ovarian tumor removal and lysis of adhesions, bilateral knee replacements, bilateral cataract removals, D&C/, glaucoma procedure left eye, non functioning neurostimlator removed, glaucoma surgery, colonoscopy, colostomy -mult surgeries for draing wound w/ 2nd ostomy site for fistula draining rt lower abd, trigger finger release. Past Anesthesia/Blood Transfusion Reactions: No Reported Reaction Additional Past Anesthesia/Blood Transfusion Reaction / Comment(s): Family hx unknown, patient was adopted. No hx blood transfusions Past Psychological History: Bipolar, Depression Smoking Status: Former smoker Past Alcohol Use History: Occasional Past Drug Use History: None Reported - Past Family History Father History Unknown: Yes Family Medical History: Unable to Obtain Additional Family Medical History / Comment(s): Pt is adopted and does not know parents medical history. Medications and Allergies Home Medications Medication Instructions Recorded Confirmed Type Baclofen 10 mg PO QID PRN 01/06/16 09/14/24 History DULoxetine HCL [Cymbalta] 60 mg PO DAILY 01/06/16 09/14/24 History Atorvastatin Calcium [Lipitor] 40 mg PO HS 12/31/18 09/14/24 History oxyCODONE HCL [oxyCODONE HCL (IR)] 10 mg PO Q6H PRN 3 Days #12 tab 03/23/22 09/14/24 Rx Docusate Sodium [Dok] 200 mg PO BID PRN 06/13/23 09/14/24 History Insulin NPH Hum/Reg Insulin Hm 10 unit SQ AC-BID 06/13/23 09/14/24 History [Novolin 70-30 100 Unit/ml Vial] Metoprolol Succinate (ER) [Toprol 75 mg PO BID 06/13/23 09/14/24 History Xl] Pioglitazone HCl 15 mg PO DAILY 06/13/23 09/14/24 History amLODIPine [Norvasc] 10 mg PO DAILY 08/21/23 09/14/24 History Insulin Glargine/Lixisenatide 45 units SQ DAILY 09/14/24 09/14/24 History [Soliqua 100 Unit-33 Mcg/ml Pen] Levothyroxine Sodium [Synthroid] 112 mcg PO DAILY 09/14/24 09/14/24 History Pantoprazole [Protonix] 40 mg PO DAILY 09/14/24 09/14/24 History busPIRone HCL [Buspar] 7.5 mg PO BID PRN 09/14/24 09/14/24 History hydrALAZINE HCL [Apresoline] 50 mg PO BID 09/14/24 09/14/24 History Allergies Allergy/AdvReac Type Severity Reaction Status Date / Time adhesive Allergy blisters Verified 09/14/24 19:51 amoxicillin Allergy Rash/Hives Verified 09/14/24 19:51 ciprofloxacin [From Cipro] AdvReac Dyspnea Verified 09/14/24 19:51 ciprofloxacin HCl AdvReac Dyspnea Verified 09/14/24 19:51 [From Cipro] Physical Exam Vitals: Vital Signs Temp Pulse Resp BP Pulse Ox 09/15/24 10:09 101 H 19 125/66 97 09/15/24 07:59 115 H 15 93/55 98 09/15/24 06:44 106 H 18 102/85 96 09/15/24 05:24 104 H 18 98/68 98 09/15/24 04:28 129 H 18 113/78 96 09/15/24 03:30 121 H 18 108/70 97 09/15/24 02:50 103 H 22 100/57 98 09/15/24 00:00 101 H 19 98/71 98 09/14/24 22:37 114 H 20 108/75 97 09/14/24 21:08 118 H 19 103/66 98 09/14/24 19:57 130 H 19 124/74 98 09/14/24 19:07 98.8 F 109 H 19 106/59 96 Intake and Output 09/14/24 09/15/24 09/15/24 22:59 06:59 14:59 Intake Total 125.000 Balance 125.000 Intake: Intake, IV Titration 125.000 Amount Diltiazem 125 mg In 125.000 Sodium Chloride 0.9% 100 ml @ 10 MG/HR 10 mls/hr IV .[id number] [facility] Rx#: [id number] Other: Weight 136.078 kg Results CBC & Chem 7: 09/15/24 08:17 09/15/24 08:00 Labs: Abnormal Lab Results - Last 24 Hours (Table) 03/16/25 03/16/25 03/16/25 Range/Units 19:32 19:32 22:32 RBC 3.40 L (3.80-5.40) m/uL Hgb 9.5 L (11.4-16.0) gm/dL Hct 31.8 L (34.0-46.0) % MCHC 29.9 L (31.0-37.0) g/dL RDW 16.9 H (11.5-15.5) % Sodium 136 L (137-145) mmol/L Carbon Dioxide 32 H (22-30) mmol/L BUN 19 H (7-17) mg/dL Creatinine 1.10 H (0.52-1.04) mg/dL Glucose 217 H (74-99) mg/dL POC Glucose (mg/dL) 197 H (70-110) mg/dL ALT 73 H (4-34) U/L Alkaline Phosphatase 195 H (38-126) U/L 09/15/24 09/15/24 09/15/24 Range/Units 07:58 08:00 08:17 RBC 3.28 L (3.80-5.40) m/uL Hgb 9.3 L (11.4-16.0) gm/dL Hct 31.4 L (34.0-46.0) % MCHC 29.6 L (31.0-37.0) g/dL RDW 16.9 H (11.5-15.5) % Sodium (137-145) mmol/L Carbon Dioxide 33 H (22-30) mmol/L BUN 19 H (7-17) mg/dL Creatinine 1.14 H (0.52-1.04) mg/dL Glucose 159 H (74-99) mg/dL POC Glucose (mg/dL) 175 H (70-110) mg/dL ALT (4-34) U/L Alkaline Phosphatase (38-126) U/L
[2024-09-15 20:42] LABS: Glucose,Whole Blood 280 mg/dL (70-110)
[2024-09-15] MEDS: busPIRone HCl 5 MG TAB PO PRN (22:50)
[2024-09-15] MEDS: BACLOFEN 10 MG TAB PO PRN (22:55)
[2024-09-16 07:00] LABS: Glucose,Whole Blood 186 mg/dL (70-110)
[2024-09-16 07:43] LABS: INR 1.1 (<1.2); Prothrombin Time 11.7 sec (10.0-12.5)
--- NOTE | 2024-09-16 07:43 | CA ---
Transthoracic Echo Report Name: Shital Mckinnon Age: 79 Gender: F : 1945 Exam Date: 09/15/2024 13:42 Exam Location: [facility] Ht (in): 65 Wt (lb): 300 Ordering Physician: Ragini Lamar Attending/Referring Phys: [id number], [place]ard Qualitative Field Coordinator Melissa Rawls, REMY Procedure CPT: Indications: LV function, afib RVR, SOB Cardiac Hx: Technical Quality: Fair Contrast 1: Definity Total Dose (mL): 2 Contrast 2: Total Dose (mL): MEASUREMENTS (Male / Female) Normal Values 2D ECHO LV Diastolic Diameter PLAX 4.4 cm 4.2 - 5.9 / 3.9 - 5.3 cm LV Systolic Diameter PLAX 3.5 cm IVS Diastolic Thickness 1.6 cm 0.6 - 1.0 / 0.6 - 0.9 cm LVPW Diastolic Thickness 1.8 cm 0.6 - 1.0 / 0.6 - 0.9 cm LV Relative Wall Thickness 0.8 RV Internal Dim ED PLAX 2.7 cm LA Systolic Diameter LX 4.4 cm 3.0 - 4.0 / 2.7 - 3.8 cm LV Diastolic Volume MOD 4C 45.6 cm??? LV Systolic Volume MOD 4C 24.7 cm??? LV Ejection Fraction MOD 4C 45.8 % LV Cardiac Index MOD 4C 728.2 cm???/min???m??? LV Diastolic Length 4C 6.0 cm LV Systolic Length 4C 5.0 cm M-MODE Aortic Root Diameter MM 3.0 cm LA Systolic Diameter MM 4.8 cm LA Ao Ratio MM 1.6 AV Cusp Separation MM 1.9 cm DOPPLER MV Peak Velocity 160.3 cm/s MV Peak Gradient 10.3 mmHg MV Mean Velocity 88.5 cm/s MV Mean Gradient 4.3 mmHg MV Velocity Time Integral 33.6 cm MV Area PHT 2.3 cm??? Mitral E Point Velocity 160.5 cm/s Mitral A Point Velocity 1.1 cm/s Mitral E to A Ratio 149.2 MV Deceleration Time 330.0 ms TR Peak Velocity 276.6 cm/s TR Peak Gradient 30.6 mmHg Right Ventricular Systolic Press 35.1 mmHg FINDINGS Left Ventricle Left ventricular ejection fraction is estimated at 55-60 %. Severely increased septal wall thickness. Severely increased posterior wall thickness. Normal left ventricular systolic function with no obvious regional wall motion abnormalities. Left ventricular cavity size normal. Right Ventricle Right ventricle not well visualized. No significant pulmonary hypertension Right Atrium Severe right atrial dilatation. Left Atrium Moderately increased left atrial diameter. Moderately increased left atrial area. Mitral Valve Mitral valve thickened. Severe mitral annular calcification. Moderate mitral stenosis. Mild mitral regurgitation. Aortic Valve Trileaflet aortic valve. Mild aortic regurgitation. Diffuse thickening (sclerosis) of the aortic valve cusps without reduced excursion. Tricuspid Valve Structurally normal tricuspid valve. [id number] tricuspid regurgitation. No tricuspid stenosis. Pulmonic Valve Structurally normal pulmonic valve. Trace pulmonic regurgitation. No pulmonic stenosis. Pericardium No pericardial or pleural effusion. Echo free space anterior to the right ventricle likely represents a fat pad. Aorta Normal size aortic root and proximal ascending aorta. CONCLUSIONS LV size and systolic function is normal. Patient is in atrial fibrillation. There is heavy mitral annular calcification with nonspecific thickening of mitral valve leaflets with probably mild to moderate stenosis. Mild regurgitation. Mild aortic regurgitation aortic valve sclerosis no stenosis. Mildly elevated PA pressures. Possible fat pad but no pericardial effusion Previewed by: Dr. Everardo Mohr MD (Electronically Signed) Final Date: 16 September 2024 07:42
[2024-09-16 08:01] LABS: Glucose,Whole Blood 185 mg/dL (70-110)
[2024-09-16 08:04] LABS: Anisocytosis Slight; Basophils % (A) 0 %; Eosinophils # (A) 0.5 k/uL (0-0.7); Eosinophils % (A) 5 %; HCT 30.8 % (34.0-46.0); HGB 9.1 gm/dL (11.4-16.0); Hypochromasia Marked; Lymphocytes # (A) 1.2 k/uL (1.0-4.8); Lymphocytes % (A) 13 %; MCH 28.1 pg (25.0-35.0); MCHC 29.4 g/dL (31.0-37.0); MCV 95.6 fL (80.0-100.0); Macrocytosis Slight; Monocytes # (A) 0.9 k/uL (0-1.0); Monocytes % (A) 10 %; Neutrophils # (A) 6.4 k/uL (1.3-7.7); Neutrophils % (A) 70 %; Platelet Count 355 k/uL (150-450); RBC 3.22 m/uL (3.80-5.40); RDW 16.8 % (11.5-15.5); WBC 9.2 k/uL (3.8-10.6)
[2024-09-16] MEDS: HEPARIN SODIUM 1,000 UN/ML (10ML VL) IV ONE (08:43)
[2024-09-16] MEDS: HEPARIN SOD,PORK IN 0.45% NACL 25,000 UNIT in 0.45% NACL 1 250ML.BAG IV SCH (08:49)
[2024-09-16] MEDS: METOPROLOL SUCCINATE (ER) 50 MG TAB.ER.24H PO STA (11:17)
--- NOTE | 2024-09-16 11:34 | P.PN ---
Subjective HISTORY OF PRESENT ILLNESS: This is a 79-year-old female with a past medical history significant for hypertension, hyperlipidemia and paroxysmal atrial fibrillation. Patient follows in the office with Dr. Gage. We have been asked to see the patient in consultation for A-fib with RVR. Patient examined at the bedside in the ER. Patient presented to the hospital with a chief complaint of shortness of breath and palpitations. She also reports feeling weak and nauseated. The patient was found to be in A-fib with RVR. She was started on IV Cardizem. She remains in atrial fibrillation with a heart rate between [address]. The patient does have a known history of atrial fibrillation. The patient was previously on anticoagulation with Eliquis but she states she was unable to afford it. She is not taking any blood thinners at this time. DIAGNOSTICS: - EKG reveals A-fib with RVR. - Chest xray cardiomegaly and mild pulmonary vascular congestion - Laboratory data: WBC 7.1. Hemoglobin 9.3. Platelet count 380. Sodium 138. Potassium 4.3. BUN 19. Creatinine 1.14. Troponin negative x 1. proBNP 10,700. TSH 2.010. - Current home cardiac medications include Lipitor 40 mg at night, amlodipine 10 mg daily, metoprolol succinate 75 mg twice a day. - Most recent echocardiogram obtained in July 2022 revealed ejection fraction 50 to 55%, mild aortic regurgitation, mild mitral stenosis, mild tricuspid regurgitation - Cardiac catheterization history: August 2019 revealing mild nonobstructive CAD Addendum entered and electronically signed by Ragini Lamar NP-C 09/15/24 12:11: Per case management, patient's co-pay for Xarelto is $384. We will begin Coumadin tonight with pharmacy to dose. 09/16/2024 Patient examined this morning at the bedside. Patient remains in the emergency room. Bedside telemetry reveals atrial flutter with with RVR. She remains on IV Cardizem at 5 mg an hour. Patient's heart rates are in the 130s at the time of examination. She currently denies chest pain or shortness of breath. Echocardiogram performed revealing ejection fraction 55 to 60%, no obvious regional wall motion abnormalities, moderate mitral stenosis, mild mitral regurgitation, moderate to severe tricuspid regurgitation PHYSICAL EXAM: VITAL SIGNS: Reviewed. GENERAL: Well-developed in no acute distress. HEENT: Head is normocephalic. Pupils are equal, round. Sclerae anicteric. Mucous membranes of the mouth are moist. Neck supple. No JVD or thyromegaly LUNGS: Respirations even and unlabored. Lungs essentially clear to auscultation bilaterally. HEART: Tachycardic. Irregular rate and rhythm. S1 and S2 heard. ABDOMEN: Soft. Nondistended. Nontender. EXTREMITIES: Normal range of motion. No clubbing or cyanosis. Peripheral pulses intact. No lower extremity edema NEUROLOGIC: Awake and alert. Oriented x 3. ASSESSMENT: Paroxysmal atrial fibrillation with RVR New onset typical atrial flutter with RVR Acute heart failure with preserved EF, proBNP 10,700 Hypertension Hyperlipidemia Mild nonobstructive CAD Morbid obesity: BMI 49.9 Recent hospitalization for GI bleed Moderate mitral stenosis Moderate to severe tricuspid regurgitation PLAN: Continue metoprolol succinate. Increase dosage to 150 mg twice a day Continue IV Cardizem. Wean as heart rate will tolerate. Continue Coumadin. Patient cannot afford co-pay for Eliquis or Xarelto. IV heparin was discontinued yesterday as patient has a history of recent GI bleed. However patient's hemoglobin has remained stable. Risk versus benefit discussed with the patient. We will resume IV heparin and continue until INR is therapeutic. No plan for HOANG/CV at this time due to reported recent GI bleed with endoscopy. No records available at this time of endoscopy. TSH checked and within normal limits Continue telemetry monitoring Further recommendations pending patient course Nurse practitioner note has been reviewed by physician. Signing provider agrees with the documented findings, assessment, and plan of care documented by CARDIOVASCULAR PHYSICIAN ASSISTANT as a scribe. Objective - Vital Signs Vital signs: Vital Signs Temp 97.6 F 09/16/24 06:03 Pulse 110 H 09/16/24 11:00 Resp 18 09/16/24 11:00 BP 105/82 09/16/24 11:00 Pulse Ox 97 09/16/24 06:03 FiO2 Intake & Output 09/15/24 09/16/24 09/16/24 18:59 06:59 18:59 Intake Total 200.693 91.167 Output Total 1300 Balance 200.693 -1208.833 Intake: Intake, IV Titration 200.693 91.167 Amount Diltiazem 125 mg In 125.000 91.167 Sodium Chloride 0.9% 100 ml @ 5 MG/HR 5 mls/hr IV .Q24H [facility] Rx#:[id number] Heparin Sod,Pork in 0.45% 75.693 NaCl 25,000 unit In 0.45 % NaCl 1 250ml.bag @ 7.4 UNITS/KG/HR 10.07 mls/hr IV .Q24H [facility] Rx#: [id number] Output: Urine 1300 - Labs CBC & Chem 7: 09/16/24 06:53 09/15/24 08:00 Labs: Abnormal Lab Results - Last 24 Hours (Table) 09/15/24 09/15/24 09/15/24 Range/Units 12:04 14:58 17:06 RBC (3.80-5.40) m/uL Hgb (11.4-16.0) gm/dL Hct (34.0-46.0) % MCHC (31.0-37.0) g/dL RDW (11.5-15.5) % APTT 33.9 H (22.0-30.0) sec POC Glucose (mg/dL) 244 H 217 H (70-110) mg/dL 09/15/24 09/15/24 09/16/24 Range/Units 20:41 22:36 06:53 RBC 3.22 L (3.80-5.40) m/uL Hgb 9.1 L (11.4-16.0) gm/dL Hct 30.8 L (34.0-46.0) % MCHC 29.4 L (31.0-37.0) g/dL RDW 16.8 H (11.5-15.5) % APTT 48.7 H (22.0-30.0) sec POC Glucose (mg/dL) 280 H (70-110) mg/dL 09/16/24 09/16/24 Range/Units 06:58 07:56 RBC (3.80-5.40) m/uL Hgb (11.4-16.0) gm/dL Hct (34.0-46.0) % MCHC (31.0-37.0) g/dL RDW (11.5-15.5) % APTT (22.0-30.0) sec POC Glucose (mg/dL) 186 H 185 H (70-110) mg/dL
[2024-09-16 12:30] LABS: Glucose,Whole Blood 140 mg/dL (70-110)
[2024-09-16] MEDS: WARFARIN 5 MG TAB PO ONE (16:33)
[2024-09-16 16:38] LABS: Glucose,Whole Blood 217 mg/dL (70-110)
[2024-09-16] MEDS: HEPARIN SODIUM 1,000 UN/ML (10ML VL) IV PRN (17:26)
[2024-09-16 20:09] LABS: Glucose,Whole Blood 210 mg/dL (70-110)
[2024-09-16] MEDS: METOPROLOL SUCCINATE (ER) 100 MG TAB.ER.24H PO SCH (21:48)
--- NOTE | 2024-09-16 22:07 | P.PN ---
Progress Note - Text Progress Note Date: 09/16/24 Chief Complaint: Heart racing Pleasant 79-year-old patient who follows with Shelia Sanders. Patient was seen by me this afternoon in the ER. Chronic medical conditions include diabetes, depression, hypothyroid, essential hypertension, chronic low back pain. 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 With drains slowly. Patient was just discharged from [facility] where she was there for 8 days. Discharged 3 days ago. Patient had presented here at [facility] ER on September 05. With dark stools. She was then transferred to [facility]. She was told she has a bleeding ulcer there. Patient's pain had heart racing for about a week. More so in the last 2 3 days. Having some nausea. Some shortness of breath. Found to be in atrial fibrillation. Started Cardizem drip 5 mg an hour. September 16: Remains on Cardizem drip 5 mg an hour. Also on Toprol-XL 150 mg twice daily per cardiology. Heart rate in A-fib remains 120s. Otherwise patient feels better. Tolerating diet. Cardiology has resumed patient's IV heparin and Coumadin. Awaiting records from [facility] from last week discharge. Nurse reminded for the same. Active Medications Atorvastatin Calcium (Atorvastatin 40 Mg Tab) 40 mg PO HS [facility] Last Admin: 09/16/24 21:48 Dose: 40 mg Baclofen (Baclofen 10 Mg Tab) 10 mg PO QID PRN PRN Reason: Muscle Spasm Last Admin: 09/16/24 21:48 Dose: 10 mg Buspirone HCl (Buspirone Hcl 5 Mg Tab) 7.5 mg PO BID PRN PRN Reason: Anxiety Dextrose/Water (Dextrose 50% Syringe 50 Ml) 25 ml IVP PER PROTOCOL PRN; Protocol PRN Reason: Hypoglycemia Dextrose/Water (Dextrose 50% Syringe 50 Ml) 50 ml IVP PER PROTOCOL PRN; Protocol PRN Reason: Hypoglycemia Duloxetine HCl (Duloxetine Hcl 60 Mg Capsule.Dr) 60 mg PO DAILY [facility] Last Admin: 09/16/24 09:36 Dose: 60 mg Furosemide (Furosemide 20 Mg Tab) 20 mg PO DAILY [facility] Last Admin: 09/16/24 08:42 Dose: 20 mg Heparin Sodium (Porcine) (Heparin Sodium 1,000 Un/Ml (10ml Vl)) 0 unit IV PER PROTOCOL PRN; Protocol PRN Reason: Low PTT Last Admin: 09/16/24 17:26 Dose: 3,500 unit Diltiazem HCl 125 mg/ Sodium (Chloride) 125 mls @ 5 mls/hr IV .Q24H [facility] Last Admin: 09/16/24 05:13 Dose: 5 mg/hr, 5 mls/hr Heparin Sodium/Sodium Chloride (25,000 unit/ Sodium Chloride) 250 mls @ 10.002 mls/hr IV .Q24H [facility]; Protocol Last Titration: 09/16/24 17:29 Dose: 9.35 units/kg/hr, 12.723 mls/hr Insulin Human Lispro (Insulin Lispro (Humalog) 100 Unit/Ml 10 Ml Vl) 0 unit SQ ACHS [facility]; Protocol Last Admin: 09/16/24 21:49 Dose: 6 unit Insulin Lispro Protam/Lispro Human (Insulin Npl/Insulin Lispro 100 Unit/Ml 10 Ml Vl (Humalog 75/25)) 10 unit SQ AC-BID [facility] Last Admin: 09/16/24 17:25 Dose: 10 unit Levothyroxine Sodium (Levothyroxine 112 Mcg Tab) 112 mcg PO DAILY@0630 [facility] Last Admin: 09/16/24 05:56 Dose: 112 mcg Metoprolol Succinate (Metoprolol Succinate (Er) 100 Mg Tab.Er.24h) 150 mg PO BID [facility] Last Admin: 09/16/24 21:48 Dose: 150 mg Miscellaneous Information (Warfarin Per Pharmacy) 1 each MISCELLANE DIRECTED PRN; Protocol PRN Reason: Per Protocol Naloxone HCl (Naloxone 0.4 Mg/Ml 1 Ml Vial) 0.2 mg IV Q2M PRN PRN Reason: Opioid Reversal Non-Formulary Medication (Insulin Glargine/Lixisenatide [Soliqua 100 Unit-33 Mcg/Ml Pen]) 45 units SQ DAILY [facility] Last Admin: 09/16/24 09:28 Dose: Not Given Oxycodone HCl (Oxycodone Hcl 5 Mg Tab) 10 mg PO Q6H PRN PRN Reason: Pain Last Admin: 09/16/24 21:48 Dose: 10 mg Pantoprazole Sodium (Pantoprazole 40 Mg Tablet) 40 mg PO BID [facility] Last Admin: 09/16/24 21:48 Dose: 40 mg Pioglitazone HCl (Pioglitazone 15 Mg Tab) 15 mg PO DAILY [facility] Last Admin: 09/16/24 09:27 Dose: 15 mg Social history: Does use a walker and a rollator. Lives alone. Spoke for 38 years. 1 to 2 packs a day. Stopped in 1997. Alcohol occasionally. Physical examination: VITAL SIGNS: Afebrile, 122, 16, 100/54, 98% 3 L GENERAL: BMI 49.9, reclining bed awake eating. EYES: Pupils equal. Conjunctiva paco l. HEENT: External appearance of nose and ears normal, oral cavity grossly normal. NECK: JVD unable to assess; masses not palpable. HEART: Heart sounds irregular l; no edema. LUNGS: Respiratory rate increased, decreased breath sounds. ABDOMEN: Soft, nontender, liver spleen not palpable, no masses palpable. Left- sided colostomy with brown stool. Lower abdominal fistula. PSYCH: Alert and oriented x3; mood and affect paco l. MUSCULOSKELETAL:No Clubbing/cyanosis;muscles-grossly intact. OA INVESTIGATIONS, reviewed in the clinical context: September 16: White count 9.2 hemoglobin 9.1 platelets 355 September 15: White count 7.1 hemoglobin 9.3 platelet 380 sodium 138 potassium 4.3 BUN 19 creatinine 1.14 EKG tracing personally reviewed by me-atrial fibrillation. Rate 132. Right bundle fariha block pattern. Some ST-T wave changes. Chest x-ray film personally reviewed by me-underpenetrated/pulm edema Assessment and plan: -New onset atrial fibrillation with a rapid ventricular rate: Remains uncontrolled IV Cardizem drip 5 mg an hour. Toprol-XL 150 mg twice daily Cardiology following IV heparin was held because of recent GI bleed. Cardiology today reevaluated and decided to proceed with IV heparin. Will keep a close eye on CBC. 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 Does use a daily 4 x 4 dressing. With some drainage chronically -Chronic diverticulitis with frozen pelvis -Diabetes mellitus type 2, chronically on insulin and oral hypoglycemic Follow Accu-Cheks and sliding scale. Resume home dose of insulin. -Depression Cymbalta -Last week diagnosed bleeding peptic ulcer Protonix. Records have been requested from [facility]. Nurse reminded today again for the same. Per cardiology IV heparin resumed today. -Hypothyroid Synthroid 112 mcg -Essential hypertension Toprol-XL, amlodipine -Chronic low back pain from arthritis oxycodone IV heparin was resumed per cardiology. Nurse reminded to get records from [facility]. Heart rate remains uncontrolled. Past Medical History Past Medical History: Asthma, Coronary Artery Disease (CAD), Cancer, Diabetes Mellitus, Hearing Disorder / Deafness, Hyperlipidemia, Hypertension, Neurologic Disorder, Osteoarthritis (OA), Pneumonia, Renal Disease, Thyroid Disorder Additional Past Medical History / Comment(s): Hx Pneumonia and Bronchitis. Hx right ovarian cancer had chemo - finished October 2017. 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 Has colostomy- left abd abd,has 2nd ostomy rt lower abd area from small intestinal fistula draining-follows now w/ Dr Zoie KoromaMxlhmr[facility] [place]. Neuropathy in hands and feet. Hard of hearing. Diverticulosis. History of Any Multi-Drug Resistant Organisms: ESBL, MRSA Date of last positivie culture/infection: 08/21/23 ESBL;08/31/22-MRSA MDRO Source:: Abdomen-MRSA; Urine-ESBL Past Surgical History: Appendectomy, Bowel Resection, Cholecystectomy, Hysterectomy, Joint Replacement, Orthopedic Surgery, Tonsillectomy Additional Past Surgical History / Comment(s): Exploratory laparotomy with ovarian tumor removal and lysis of adhesions, bilateral knee replacements, bilateral cataract removals, D&C/, glaucoma procedure left eye, non functioning neurostimlator removed, glaucoma surgery, colonoscopy, colostomy 03/20/2022-mult surgeries for draing wound w/ 2nd ostomy site for fistula draining rt lower abd, trigger finger release. Past Anesthesia/Blood Transfusion Reactions: No Reported Reaction Additional Past Anesthesia/Blood Transfusion Reaction / Comment(s): Family hx unknown, patient was adopted. No hx blood transfusions Past Psychological History: Bipolar, Depression Smoking Status: Former smoker Past Alcohol Use History: Occasional Past Drug Use History: None Reported
[2024-09-17 05:52] LABS: Glucose,Whole Blood 179 mg/dL (70-110)
[2024-09-17 06:50] LABS: Anisocytosis Slight; Basophils % (A) 0 %; Eosinophils # (A) 0.5 k/uL (0-0.7); Eosinophils % (A) 5 %; HCT 28.9 % (34.0-46.0); Hypochromasia Marked; Lymphocytes # (A) 1.5 k/uL (1.0-4.8); Lymphocytes % (A) 17 %; MCH 28.8 pg (25.0-35.0); MCHC 31.2 g/dL (31.0-37.0); MCV 92.4 fL (80.0-100.0); Mean Platelet Volume 8.1; Monocytes % (A) 11 %; Neutrophils # (A) 5.9 k/uL (1.3-7.7); Neutrophils % (A) 65 %; Platelet Count 359 k/uL (150-450); RBC 3.13 m/uL (3.80-5.40); RDW 16.4 % (11.5-15.5); WBC 9.1 k/uL (3.8-10.6)
[2024-09-17 07:03] LABS: INR 1.2 (<1.2); Prothrombin Time 12.9 sec (10.0-12.5)
[2024-09-17 11:48] LABS: Glucose,Whole Blood 147 mg/dL (70-110)
--- NOTE | 2024-09-17 13:29 | P.PN ---
Subjective HISTORY OF PRESENT ILLNESS: This is a 79-year-old female with a past medical history significant for hypertension, hyperlipidemia and paroxysmal atrial fibrillation. Patient follows in the office with Dr. Gage. We have been asked to see the patient in consultation for A-fib with RVR. Patient examined at the bedside in the ER. Patient presented to the hospital with a chief complaint of shortness of breath and palpitations. She also reports feeling weak and nauseated. The patient was found to be in A-fib with RVR. She was started on IV Cardizem. She remains in atrial fibrillation with a heart rate [place] [address]. The patient does have a known history of atrial fibrillation. The patient was previously on anticoagulation with Eliquis but she states she was unable to afford it. She is not taking any blood thinners at this time. DIAGNOSTICS: - EKG reveals A-fib with RVR. - Chest xray cardiomegaly and mild pulmonary vascular congestion - Laboratory data: WBC 7.1. Hemoglobin 9.3. Platelet count 380. Sodium 138. Potassium 4.3. BUN 19. Creatinine 1.14. Troponin negative x 1. proBNP 10,700. TSH 2.010. - Current home cardiac medications include Lipitor 40 mg at night, amlodipine 10 mg daily, metoprolol succinate 75 mg twice a day. - Most recent echocardiogram obtained in July 2022 revealed ejection fraction 50 to 55%, mild aortic regurgitation, mild mitral stenosis, mild tricuspid regurgitation - Cardiac catheterization history: August 2019 revealing mild nonobstructive CAD Addendum entered and electronically signed by Ragini Lamar NP-C 09/15/24 12:11: Per case management, patient's co-pay for Xarelto is $384. We will begin Coumadin tonight with pharmacy to dose. 09/16/2024 Patient examined this morning at the bedside. Patient remains in the emergency room. Bedside telemetry reveals atrial flutter with with RVR. She remains on IV Cardizem at 5 mg an hour. Patient's heart rates are in the 130s at the time of examination. She currently denies chest pain or shortness of breath. Echocardiogram performed revealing ejection fraction 55 to 60%, no obvious regional wall motion abnormalities, moderate mitral stenosis, mild mitral regurgitation, moderate to severe tricuspid regurgitation 09/17/2024 Patient examined this morning the bedside. Patient currently denies chest pain or pressure. Patient denies shortness of breath. She remains in atrial fibrillation/flutter with a heart rate in the 60s70s. She remains on IV heparin. Hemoglobin 9.0. PHYSICAL EXAM: VITAL SIGNS: Reviewed. GENERAL: Well-developed in no acute distress. HEENT: Head is normocephalic. Pupils are equal, round. Sclerae anicteric. Mucous membranes of the mouth are moist. Neck supple. No JVD or thyromegaly LUNGS: Respirations even and unlabored. Lungs essentially clear to auscultation bilaterally. HEART: Irregular rate and rhythm. S1 and S2 heard. ABDOMEN: Soft. Nondistended. Nontender. EXTREMITIES: Normal range of motion. No clubbing or cyanosis. Peripheral pulses intact. No lower extremity edema NEUROLOGIC: Awake and alert. Oriented x 3. ASSESSMENT: Paroxysmal atrial fibrillation with RVR New onset typical atrial flutter with RVR, currently rate controlled Acute heart failure with preserved EF, proBNP 10,700 Hypertension Hyperlipidemia Mild nonobstructive CAD Morbid obesity: BMI 49.9 Recent hospitalization for GI bleed Moderate mitral stenosis Moderate to severe tricuspid regurgitation PLAN: Continue metoprolol succinate 150 mg twice a day Discontinue IV Cardizem Continue Coumadin. Patient cannot afford co-pay for Eliquis or Xarelto. IV heparin was discontinued 09/16/2024 per primary medicine as patient has a history of recent GI bleed. However patient's hemoglobin has remained stable. Risk versus benefit discussed with the patient 09/16/2024. Continue IV heparin and continue until INR is therapeutic. No plan for HOANG/CV at this time due to reported recent GI bleed with endoscopy TSH checked and within normal limits Continue telemetry monitoring Continue to monitor patient for an additional 24 hours Further recommendations pending patient course Nurse practitioner note has been reviewed by physician. Signing provider agrees with the documented findings, assessment, and plan of care documented by CRIBBING SETTER as a scribe. Objective - Vital Signs Vital signs: Vital Signs Temp 97.2 F L 09/17/24 12:00 Pulse 79 09/17/24 12:00 Resp 20 09/17/24 12:00 BP 139/74 09/17/24 12:00 Pulse Ox 98 09/17/24 12:00 FiO2 Intake & Output 09/16/24 09/17/24 09/17/24 18:59 06:59 18:59 Intake Total 266.684 163.316 125 Output Total 300 Balance 266.684 -136.684 125 Weight 136.078 kg 110.9 kg Intake: Intake, IV Titration 86.684 163.316 125 Amount Diltiazem 125 mg In 125 Sodium Chloride 0.9% 100 ml @ 5 MG/HR 5 mls/hr IV .Q24H [facility] Rx#:[id number] Heparin Sod,Pork in 0.45% 86.684 163.316 NaCl 25,000 unit In 0.45 % NaCl 1 250ml.bag @ 7.35 UNITS/KG/HR 10.002 mls/ hr IV .Q24H [facility] Rx#: [id number] Oral 180 Output: Urine 300 Other: Voiding Method Incontinent Incontinent External Catheter External Catheter # Voids 2 - Labs CBC & Chem 7: 09/17/24 06:12 09/15/24 08:00 Labs: Abnormal Lab Results - Last 24 Hours (Table) 09/16/24 09/16/24 09/16/24 Range/Units 14:36 16:31 16:36 RBC (3.80-5.40) m/uL Hgb (11.4-16.0) gm/dL Hct (34.0-46.0) % RDW (11.5-15.5) % PT (10.0-12.5) sec INR (<1.2) APTT 39.2 H 36.6 H (22.0-30.0) sec POC Glucose (mg/dL) 217 H (70-110) mg/dL 09/16/24 09/16/24 09/17/24 Range/Units 20:08 23:53 05:51 RBC (3.80-5.40) m/uL Hgb (11.4-16.0) gm/dL Hct (34.0-46.0) % RDW (11.5-15.5) % PT (10.0-12.5) sec INR (<1.2) APTT 35.2 H (22.0-30.0) sec POC Glucose (mg/dL) 210 H 179 H (70-110) mg/dL 09/17/24 09/17/24 09/17/24 Range/Units 06:12 06:12 11:46 RBC 3.13 L (3.80-5.40) m/uL Hgb 9.0 L (11.4-16.0) gm/dL Hct 28.9 L (34.0-46.0) % RDW 16.4 H (11.5-15.5) % PT 12.9 H (10.0-12.5) sec INR 1.2 H (<1.2) APTT 71.0 H (22.0-30.0) sec POC Glucose (mg/dL) 147 H (70-110) mg/dL
[2024-09-17] MEDS: DILTIAZEM ORAL 30 MG TAB PO SCH (14:54)
[2024-09-17 17:09] LABS: Glucose,Whole Blood 103 mg/dL (70-110)
[2024-09-17] MEDS: WARFARIN 10 MG TAB PO ONE (17:49)
--- NOTE | 2024-09-17 19:11 | P.PN ---
Progress Note - Text Progress Note Date: 09/17/24 Chief Complaint: Heart racing Pleasant 79-year-old patient who follows with Shelia Sanders. Patient was seen by me this afternoon in the ER. Chronic medical conditions include diabetes, depression, hypothyroid, essential hypertension, chronic low back pain. 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 With drains slowly. Patient was just discharged from [facility] where she was there for 8 days. Discharged 3 days ago. Patient had presented here at [facility] ER on September 05. With dark stools. She was then transferred to [facility]. She was told she has a bleeding ulcer there. Patient's pain had heart racing for about a week. More so in the last 2 3 days. Having some nausea. Some shortness of breath. Found to be in atrial fibrillation. Started Cardizem drip 5 mg an hour. September 16: Remains on Cardizem drip 5 mg an hour. Also on Toprol-XL 150 mg twice daily per cardiology. Heart rate in A-fib remains 120s. Otherwise patient feels better. Tolerating diet. Cardiology has resumed patient's IV heparin and Coumadin. Awaiting records from [facility] from last week discharge. Nurse reminded for the same. September 17: Patient seen this afternoon. Heart rate is in the 90s. Patient is feeling fine. Tolerating diet. On Coumadin per cardiology. Cardizem 30 mg p.o. 3 times daily was added. Toprol-XL 150 twice daily. Active Medications Atorvastatin Calcium (Atorvastatin 40 Mg Tab) 40 mg PO [facility] Last Admin: 09/16/24 21:48 Dose: 40 mg Baclofen (Baclofen 10 Mg Tab) 10 mg PO QID PRN PRN Reason: Muscle Spasm Last Admin: 09/17/24 03:48 Dose: 10 mg Buspirone HCl (Buspirone Hcl 5 Mg Tab) 7.5 mg PO BID PRN PRN Reason: Anxiety Dextrose/Water (Dextrose 50% Syringe 50 Ml) 25 ml IVP PER PROTOCOL PRN; Protocol PRN Reason: Hypoglycemia Dextrose/Water (Dextrose 50% Syringe 50 Ml) 50 ml IVP PER PROTOCOL PRN; Protocol PRN Reason: Hypoglycemia Diltiazem HCl (Diltiazem Oral 30 Mg Tab) 30 mg PO TID [facility] Last Admin: 09/17/24 14:54 Dose: 30 mg Duloxetine HCl (Duloxetine Hcl 60 Mg Capsule.Dr) 60 mg PO DAILY [facility] Last Admin: 09/17/24 08:31 Dose: 60 mg Furosemide (Furosemide 20 Mg Tab) 20 mg PO DAILY [facility] Last Admin: 09/17/24 08:31 Dose: 20 mg Heparin Sodium (Porcine) (Heparin Sodium 1,000 Un/Ml (10ml Vl)) 0 unit IV PER PROTOCOL PRN; Protocol PRN Reason: Low PTT Last Admin: 09/16/24 17:26 Dose: 3,500 unit Heparin Sodium/Sodium Chloride (25,000 unit/ Sodium Chloride) 250 mls @ 10.002 mls/hr IV .Q24H [facility]; Protocol Last Admin: 09/17/24 06:23 Dose: 11.35 units/kg/hr, 15.445 mls/hr Insulin Human Lispro (Insulin Lispro (Humalog) 100 Unit/Ml 10 Ml Vl) 0 unit SQ ACHS [facility]; Protocol Last Admin: 09/17/24 17:52 Dose: Not Given Insulin Lispro Protam/Lispro Human (Insulin Npl/Insulin Lispro 100 Unit/Ml 10 Ml Vl (Humalog 75/25)) 10 unit SQ AC-BID [facility] Last Admin: 09/17/24 17:49 Dose: 10 unit Levothyroxine Sodium (Levothyroxine 112 Mcg Tab) 112 mcg PO DAILY@0630 [facility] Last Admin: 09/17/24 06:23 Dose: 112 mcg Metoprolol Succinate (Metoprolol Succinate (Er) 100 Mg Tab.Er.24h) 150 mg PO BID [facility] Last Admin: 09/17/24 08:31 Dose: 150 mg Miscellaneous Information (Warfarin Per Pharmacy) 1 each MISCELLANE DIRECTED PRN; Protocol PRN Reason: Per Protocol Naloxone HCl (Naloxone 0.4 Mg/Ml 1 Ml Vial) 0.2 mg IV Q2M PRN PRN Reason: Opioid Reversal Patient's Own Med ( Insulin Glargine/Lixisenatide [ Soliqua 100 Unit-33 Mcg/Ml Pen] 3 Ml In 45 units SQ DAILY [facility] Last Admin: 09/17/24 10:18 Dose: 45 units Oxycodone HCl (Oxycodone Hcl 5 Mg Tab) 10 mg PO Q6H PRN PRN Reason: Pain Last Admin: 09/17/24 03:48 Dose: 10 mg Pantoprazole Sodium (Pantoprazole 40 Mg Tablet) 40 mg PO BID [facility] Last Admin: 09/17/24 08:31 Dose: 40 mg Pioglitazone HCl (Pioglitazone 15 Mg Tab) 15 mg PO DAILY [facility] Last Admin: 09/17/24 08:31 Dose: 15 mg Social history: Does use a walker and a rollator. Lives alone. Spoke for 38 years. 1 to 2 packs a day. Stopped in 1997. Alcohol occasionally. Physical examination: VITAL SIGNS: 97.2, 79, 20, 139 x 74, 98% 2 L GENERAL: BMI 49.9, reclining bed awake, comfortable EYES: Pupils equal. Conjunctiva paco l. HEENT: External appearance of nose and ears normal, oral cavity grossly normal. NECK: JVD unable to assess; masses not palpable. HEART: Heart sounds irregular l; no edema. LUNGS: Respiratory rate normal decreased breath sounds. ABDOMEN: Soft, nontender, liver spleen not palpable, no masses palpable. Left- sided colostomy with brown stool. Lower abdominal fistula. PSYCH: Alert and oriented x3; mood and affect paco l. MUSCULOSKELETAL:No Clubbing/cyanosis;muscles-grossly intact. OA INVESTIGATIONS, reviewed in the clinical context: September 17: White count 9.1 hemoglobin 9 INR 1.2 September 16: White count 9.2 hemoglobin 9.1 platelets 355 September 15: White count 7.1 hemoglobin 9.3 platelet 380 sodium 138 potassium 4.3 BUN 19 creatinine 1.14 EKG tracing personally reviewed by me-atrial fibrillation. Rate 132. Right bundle fariha block pattern. Some ST-T wave changes. Chest x-ray film personally reviewed by me-underpenetrated/pulm edema Assessment and plan: -New onset atrial fibrillation with a rapid ventricular rate: Rate better controlled IV Cardizem drip 5 mg an hour initially. Toprol-XL 150 mg twice daily Cardizem 30 mg 3 times daily added. Cardiology following. Have started the patient on Coumadin. 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 Does use a daily 4 x 4 dressing. With some drainage chronically -Chronic diverticulitis with frozen pelvis -Diabetes mellitus type 2, chronically on insulin and oral hypoglycemic Follow Accu-Cheks and sliding scale. Resume home dose of insulin. -Depression Cymbalta -Last week diagnosed bleeding peptic ulcer Protonix. Records have been requested from [facility]. Nurse reminded today again for the same. Per cardiology IV heparin and Coumadin. -Hypothyroid Synthroid 112 mcg -Essential hypertension Toprol-XL, amlodipine -Chronic low back pain from arthritis oxycodone Discussed with patient. Follow with cardiology. Past Medical History Past Medical History: Asthma, Coronary Artery Disease (CAD), Cancer, Diabetes Mellitus, Hearing Disorder / Deafness, Hyperlipidemia, Hypertension, Neurologic Disorder, Osteoarthritis (OA), Pneumonia, Renal Disease, Thyroid Disorder Additional Past Medical History / Comment(s): Hx Pneumonia and Bronchitis. Hx right ovarian cancer had chemo - finished October 2017. 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 Has colostomy- left abd abd,has 2nd ostomy rt lower abd area from small intestinal fistula draining-follows now w/ Dr Zoie [facility]di[facility] [place]. Neuropathy in hands and feet. Hard of hearing. Diverticulosis. History of Any Multi-Drug Resistant Organisms: ESBL, MRSA Date of last positivie culture/infection: 08/21/23 ESBL;08/31/22-MRSA MDRO Source:: Abdomen-MRSA; Urine-ESBL Past Surgical History: Appendectomy, Bowel Resection, Cholecystectomy, Hysterectomy, Joint Replacement, Orthopedic Surgery, Tonsillectomy Additional Past Surgical History / Comment(s): Exploratory laparotomy with ovarian tumor removal and lysis of adhesions, bilateral knee replacements, bilateral cataract removals, D&C/, glaucoma procedure left eye, non functioning neurostimlator removed, glaucoma surgery, colonoscopy, colostomy 03/20/2022-mult surgeries for draing wound w/ 2nd ostomy site for fistula draining rt lower abd, trigger finger release. Past Anesthesia/Blood Transfusion Reactions: No Reported Reaction Additional Past Anesthesia/Blood Transfusion Reaction / Comment(s): Family hx unknown, patient was adopted. No hx blood transfusions Past Psychological History: Bipolar, Depression Smoking Status: Former smoker Past Alcohol Use History: Occasional Past Drug Use History: None Reported
[2024-09-17 20:27] LABS: Glucose,Whole Blood 111 mg/dL (70-110)
[2024-09-18 05:57] LABS: Glucose,Whole Blood 128 mg/dL (70-110)
[2024-09-18 06:58] LABS: Anisocytosis Slight; HCT 31.4 % (34.0-46.0); HGB 9.3 gm/dL (11.4-16.0); Hypochromasia Marked; MCH 28.2 pg (25.0-35.0); MCHC 29.7 g/dL (31.0-37.0); MCV 94.7 fL (80.0-100.0); Mean Platelet Volume 8.3; Platelet Count 354 k/uL (150-450); RBC 3.32 m/uL (3.80-5.40); RDW 16.4 % (11.5-15.5); WBC 11.9 k/uL (3.8-10.6)
[2024-09-18 07:20] LABS: INR 1.8 (<1.2); Prothrombin Time 18.6 sec (10.0-12.5)
[2024-09-18 07:44] LABS: Partial Thromboplastin Time 110.9 sec (22.0-30.0)
[2024-09-18 08:41] LABS: African American GFR (CKD) 42 (>60 ml/min/1.73 sqM); Anion Gap 6 mmol/L; Blood Urea Nitrogen 25 mg/dL (7-17); Calcium 8.2 mg/dL (8.4-10.2); Carbon Dioxide 31 mmol/L (22-30); Chloride 99 mmol/L (98-107); Glucose 124 mg/dL (74-99); Non-African American GFR(CKD) 37 (>60 ml/min/1.73 sqM); Potassium 4.2 mmol/L (3.5-5.1); Sodium 136 mmol/L (137-145)
[2024-09-18 11:14] LABS: Glucose,Whole Blood 155 mg/dL (70-110)
--- NOTE | 2024-09-18 11:56 | P.PN ---
Subjective HISTORY OF PRESENT ILLNESS: This is a 79-year-old female with a past medical history significant for hypertension, hyperlipidemia and paroxysmal atrial fibrillation. Patient follows in the office with Dr. Gage. We have been asked to see the patient in consultation for A-fib with RVR. Patient examined at the bedside in the ER. Patient presented to the hospital with a chief complaint of shortness of breath and palpitations. She also reports feeling weak and nauseated. The patient was found to be in A-fib with RVR. She was started on IV Cardizem. She remains in atrial fibrillation with a heart rate [place] [address]. The patient does have a known history of atrial fibrillation. The patient was previously on anticoagulation with Eliquis but she states she was unable to afford it. She is not taking any blood thinners at this time. DIAGNOSTICS: - EKG reveals A-fib with RVR. - Chest xray cardiomegaly and mild pulmonary vascular congestion - Laboratory data: WBC 7.1. Hemoglobin 9.3. Platelet count 380. Sodium 138. Potassium 4.3. BUN 19. Creatinine 1.14. Troponin negative x 1. proBNP 10,700. TSH 2.010. - Current home cardiac medications include Lipitor 40 mg at night, amlodipine 10 mg daily, metoprolol succinate 75 mg twice a day. - Most recent echocardiogram obtained in July 2022 revealed ejection fraction 50 to 55%, mild aortic regurgitation, mild mitral stenosis, mild tricuspid regurgitation - Cardiac catheterization history: August 2019 revealing mild nonobstructive CAD Addendum entered and electronically signed by Ragini Lamar NP-C 09/15/24 12:11: Per case management, patient's co-pay for Xarelto is $384. We will begin Coumadin tonight with pharmacy to dose. 09/16/2024 Patient examined this morning at the bedside. Patient remains in the emergency room. Bedside telemetry reveals atrial flutter with with RVR. She remains on IV Cardizem at 5 mg an hour. Patient's heart rates are in the 130s at the time of examination. She currently denies chest pain or shortness of breath. Echocardiogram performed revealing ejection fraction 55 to 60%, no obvious regional wall motion abnormalities, moderate mitral stenosis, mild mitral regurgitation, moderate to severe tricuspid regurgitation 09/17/2024 Patient examined this morning the bedside. Patient currently denies chest pain or pressure. Patient denies shortness of breath. She remains in atrial fibrillation/flutter with a heart rate in the 60s70s. She remains on IV heparin. Hemoglobin 9.0. 09/18/2024 Patient examined this morning to bedside. Patient currently denies chest pain or pressure. She denies shortness of breath. Heart rates remain around 700362. INR today 1.8. PHYSICAL EXAM: VITAL SIGNS: Reviewed. GENERAL: Well-developed in no acute distress. HEENT: Head is normocephalic. Pupils are equal, round. Sclerae anicteric. Mucous membranes of the mouth are moist. Neck supple. No JVD or thyromegaly LUNGS: Respirations even and unlabored. Lungs essentially clear to auscultation bilaterally. HEART: Irregular rate and rhythm. S1 and S2 heard. ABDOMEN: Soft. Nondistended. Nontender. EXTREMITIES: Normal range of motion. No clubbing or cyanosis. Peripheral pulses intact. No lower extremity edema NEUROLOGIC: Awake and alert. Oriented x 3. ASSESSMENT: Paroxysmal atrial fibrillation with RVR New onset typical atrial flutter with RVR, currently rate controlled Acute heart failure with preserved EF, proBNP 10,700 Hypertension Hyperlipidemia Mild nonobstructive CAD Morbid obesity: BMI 49.9 Recent hospitalization for GI bleed Moderate mitral stenosis Moderate to severe tricuspid regurgitation PLAN: Continue metoprolol succinate 150 mg twice a day Continue oral Cardizem 30 mg 3 times daily Continue Coumadin. Patient cannot afford co-pay for Eliquis or Xarelto. IV heparin was discontinued 09/16/2024 per primary medicine as patient has a history of recent GI bleed. However patient's hemoglobin has remained stable. Risk versus benefit discussed with the patient 09/16/2024. Continue IV heparin and continue until INR is therapeutic. No plan for HOANG/CV at this time due to reported recent GI bleed with endoscopy TSH checked and within normal limits Continue telemetry monitoring Patient may be discharged home from a cardiac standpoint. However recommend patient be discharged home with 24 hours of Lovenox. Further recommendations pending patient course Nurse practitioner note has been reviewed by physician. Signing provider agrees with the documented findings, assessment, and plan of care documented by LITIGATION ATTORNEY as a scribe. Objective - Vital Signs Vital signs: Vital Signs Temp 98.2 F 09/18/24 11:32 Pulse 126 H 09/18/24 11:32 Resp 19 09/18/24 11:32 BP 98/62 09/18/24 11:32 Pulse Ox 96 09/18/24 11:32 FiO2 Intake & Output 09/17/24 09/18/24 09/18/24 18:59 06:59 18:59 Intake Total 361 236.566 438.726 Output Total 3612 958 1863 Balance -1139 -463.434 -761.274 Weight 110 kg Intake: Intake, IV Titration 125 236.566 198.726 Amount Diltiazem 125 mg In 125 Sodium Chloride 0.9% 100 ml @ 5 MG/HR 5 mls/hr IV .Q24H [facility] Rx#:[id number] Heparin Sod,Pork in 0.45% 236.566 198.726 NaCl 25,000 unit In 0.45 % NaCl 1 250ml.bag @ 7.35 UNITS/KG/HR 10.002 mls/ hr IV .Q24H [facility] Rx#: [id number] Oral 236 240 Output: Urine 1500 400 900 Stool 300 300 Other: Voiding Method Incontinent Incontinent Incontinent External Catheter External Catheter External Catheter - Labs CBC & Chem 7: 09/18/24 06:20 09/18/24 06:20 Labs: Abnormal Lab Results - Last 24 Hours (Table) 09/17/24 09/18/24 09/18/24 Range/Units 20:26 05:56 06:20 WBC (3.8-10.6) k/uL RBC (3.80-5.40) m/uL Hgb (11.4-16.0) gm/dL Hct (34.0-46.0) % MCHC (31.0-37.0) g/dL RDW (11.5-15.5) % PT 18.6 H (10.0-12.5) sec INR 1.8 H (<1.2) APTT 110.9 H* (22.0-30.0) sec Sodium (137-145) mmol/L Carbon Dioxide (22-30) mmol/L BUN (7-17) mg/dL Creatinine (0.52-1.04) mg/dL Glucose (74-99) mg/dL POC Glucose (mg/dL) 111 H 128 H (70-110) mg/dL Calcium (8.4-10.2) mg/dL 09/18/24 09/18/24 09/18/24 Range/Units 06:20 06:20 11:13 WBC 11.9 H (3.8-10.6) k/uL RBC 3.32 L (3.80-5.40) m/uL Hgb 9.3 L (11.4-16.0) gm/dL Hct 31.4 L (34.0-46.0) % MCHC 29.7 L (31.0-37.0) g/dL RDW 16.4 H (11.5-15.5) % PT (10.0-12.5) sec INR (<1.2) APTT (22.0-30.0) sec Sodium 136 L (137-145) mmol/L Carbon Dioxide 31 H (22-30) mmol/L BUN 25 H (7-17) mg/dL Creatinine 1.36 H (0.52-1.04) mg/dL Glucose 124 H (74-99) mg/dL POC Glucose (mg/dL) 155 H (70-110) mg/dL Calcium 8.2 L (8.4-10.2) mg/dL
[2024-09-18 16:10] LABS: Glucose,Whole Blood 131 mg/dL (70-110)
[2024-09-18] MEDS: WARFARIN 7.5 MG TAB PO ONE (17:18)
[2024-09-18 21:15] LABS: Glucose,Whole Blood 214 mg/dL (70-110)
--- NOTE | 2024-09-18 23:28 | P.PN ---
Progress Note - Text Progress Note Date: 09/18/24 Chief Complaint: Heart racing Pleasant 79-year-old patient who follows with Shelia Sanders. Patient was seen by me this afternoon in the ER. Chronic medical conditions include diabetes, depression, hypothyroid, essential hypertension, chronic low back pain. 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 With drains slowly. Patient was just discharged from [facility] where she was there for 8 days. Discharged 3 days ago. Patient had presented here at [facility] ER on September 05. With dark stools. She was then transferred to [facility]. She was told she has a bleeding ulcer there. Patient's pain had heart racing for about a week. More so in the last 2 3 days. Having some nausea. Some shortness of breath. Found to be in atrial fibrillation. Started Cardizem drip 5 mg an hour. September 16: Remains on Cardizem drip 5 mg an hour. Also on Toprol-XL 150 mg twice daily per cardiology. Heart rate in A-fib remains 120s. Otherwise patient feels better. Tolerating diet. Cardiology has resumed patient's IV heparin and Coumadin. Awaiting records from [facility] from last week discharge. Nurse reminded for the same. September 17: Patient seen this afternoon. Heart rate is in the 90s. Patient is feeling fine. Tolerating diet. On Coumadin per cardiology. Cardizem 30 mg p.o. 3 times daily was added. Toprol-XL 150 twice daily. September 18: Breathing better. On oral Cardizem 30 mg 3 times daily. Toprol-XL 150 mg twice daily. IV heparin Coumadin continued per cardiology. No cardiac symptoms. Eating fair. Active Medications Atorvastatin Calcium (Atorvastatin 40 Mg Tab) 40 mg PO HS [place] Last Admin: 09/18/24 21:38 Dose: 40 mg Baclofen (Baclofen 10 Mg Tab) 10 mg PO QID PRN PRN Reason: Muscle Spasm Last Admin: 09/18/24 21:38 Dose: 10 mg Buspirone HCl (Buspirone Hcl 5 Mg Tab) 7.5 mg PO BID PRN PRN Reason: Anxiety Dextrose/Water (Dextrose 50% Syringe 50 Ml) 25 ml IVP PER PROTOCOL PRN; Protocol PRN Reason: Hypoglycemia Dextrose/Water (Dextrose 50% Syringe 50 Ml) 50 ml IVP PER PROTOCOL PRN; Protocol PRN Reason: Hypoglycemia Diltiazem HCl (Diltiazem Oral 30 Mg Tab) 30 mg PO TID [facility] Last Admin: 09/18/24 21:38 Dose: 30 mg Duloxetine HCl (Duloxetine Hcl 60 Mg Capsule.Dr) 60 mg PO DAILY [facility] Last Admin: 09/18/24 09:37 Dose: 60 mg Furosemide (Furosemide 20 Mg Tab) 20 mg PO DAILY [facility] Last Admin: 09/18/24 09:38 Dose: 20 mg Heparin Sodium (Porcine) (Heparin Sodium 1,000 Un/Ml (10ml Vl)) 0 unit IV PER PROTOCOL PRN; Protocol PRN Reason: Low PTT Last Admin: 09/16/24 17:26 Dose: 3,500 unit Heparin Sodium/Sodium Chloride (25,000 unit/ Sodium Chloride) 250 mls @ 10.002 mls/hr IV .Q24H [facility]; Protocol Last Admin: 09/18/24 17:19 Dose: 9.35 units/kg/hr, 12.723 mls/hr Insulin Human Lispro (Insulin Lispro (Humalog) 100 Unit/Ml 10 Ml Vl) 0 unit SQ ACHS [facility]; Protocol Last Admin: 09/18/24 21:38 Dose: 6 unit Insulin Lispro Protam/Lispro Human (Insulin Npl/Insulin Lispro 100 Unit/Ml 10 Ml Vl (Humalog 75/25)) 10 unit SQ AC-BID [facility] Last Admin: 09/18/24 17:19 Dose: 10 unit Levothyroxine Sodium (Levothyroxine 112 Mcg Tab) 112 mcg PO DAILY@0630 [facility] Last Admin: 09/18/24 07:40 Dose: 112 mcg Metoprolol Succinate (Metoprolol Succinate (Er) 100 Mg Tab.Er.24h) 150 mg PO BID [facility] Last Admin: 09/18/24 21:38 Dose: 150 mg Miscellaneous Information (Warfarin Per Pharmacy) 1 each MISCELLANE DIRECTED PRN; Protocol PRN Reason: Per Protocol Naloxone HCl (Naloxone 0.4 Mg/Ml 1 Ml Vial) 0.2 mg IV Q2M PRN PRN Reason: Opioid Reversal Patient's Own Med ( Insulin Glargine/Lixisenatide [ Soliqua 100 Unit-33 Mcg/Ml Pen] 3 Ml In 45 units SQ DAILY [facility] Last Admin: 09/18/24 09:43 Dose: 45 units Oxycodone HCl (Oxycodone Hcl 5 Mg Tab) 10 mg PO Q6H PRN PRN Reason: Pain Last Admin: 09/18/24 21:38 Dose: 10 mg Pantoprazole Sodium (Pantoprazole 40 Mg Tablet) 40 mg PO BID [facility] Last Admin: 09/18/24 21:38 Dose: 40 mg Pioglitazone HCl (Pioglitazone 15 Mg Tab) 15 mg PO DAILY [facility] Last Admin: 09/18/24 13:15 Dose: 15 mg Social history: Does use a walker and a rollator. Lives alone. Spoke for 38 years. 1 to 2 packs a day. Stopped in 1997. Alcohol occasionally. Physical examination: VITAL SIGNS: 98.2, 126, 19, 98 x 62, 96% on 2 L GENERAL: BMI 49.9, reclining bed awake, comfortable EYES: Pupils equal. Conjunctiva paco l. HEENT: External appearance of nose and ears normal, oral cavity grossly normal. NECK: JVD unable to assess; masses not palpable. HEART: Heart sounds irregular l; no edema. LUNGS: Respiratory rate normal decreased breath sounds. ABDOMEN: Soft, nontender, liver spleen not palpable, no masses palpable. Left- sided colostomy with brown stool. Lower abdominal fistula. PSYCH: Alert and oriented x3; mood and affect paco l. MUSCULOSKELETAL:No Clubbing/cyanosis;muscles-grossly intact. OA INVESTIGATIONS, reviewed in the clinical context: September 18: White count 9.9 hemoglobin 9.3 platelets 354 potassium 4.2 BUN 25 creatinine 1.36 September 17: White count 9.1 hemoglobin 9 INR 1.2 September 16: White count 9.2 hemoglobin 9.1 platelets 355 September 15: White count 7.1 hemoglobin 9.3 platelet 380 sodium 138 potassium 4.3 BUN 19 creatinine 1.14 EKG tracing personally reviewed by me-atrial fibrillation. Rate 132. Right bundle fariha block pattern. Some ST-T wave changes. Chest x-ray film personally reviewed by me-underpenetrated/pulm edema Assessment and plan: -New onset atrial fibrillation with a rapid ventricular rate: Rate up again IV Cardizem drip 5 mg an hour initially. Toprol-XL 150 mg twice daily Cardizem 30 mg 3 times daily added. Cardiology following. Have started the patient on Coumadin. 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 Does use a daily 4 x 4 dressing. With some drainage chronically -Chronic diverticulitis with frozen pelvis -Diabetes mellitus type 2, chronically on insulin and oral hypoglycemic Follow Accu-Cheks and sliding scale. Resume home dose of insulin. -Depression Cymbalta -Last week diagnosed bleeding peptic ulcer Protonix. Records have been requested from [facility]. Nurse reminded today again for the same. Per cardiology IV heparin and Coumadin. -Hypothyroid Synthroid 112 mcg -Essential hypertension Toprol-XL, Cardizem -Chronic low back pain from arthritis oxycodone IV heparin, Coumadin. Heart rate still up. Follow with cardiology Past Medical History Past Medical History: Asthma, Coronary Artery Disease (CAD), Cancer, Diabetes Mellitus, Hearing Disorder / Deafness, Hyperlipidemia, Hypertension, Neurologic Disorder, Osteoarthritis (OA), Pneumonia, Renal Disease, Thyroid Disorder Additional Past Medical History / Comment(s): Hx Pneumonia and Bronchitis. Hx right ovarian cancer had chemo - finished October 2017. 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 Has colostomy- left abd abd,has 2nd ostomy rt lower abd area from small intestinal fistula draining-follows now w/ [facility] Neuropathy in hands and feet. Hard of hearing. Diverticulosis. History of Any Multi-Drug Resistant Organisms: ESBL, MRSA Date of last positivie culture/infection: 08/21/23 ESBL;08/31/22-MRSA MDRO Source:: Abdomen-MRSA; Urine-ESBL Past Surgical History: Appendectomy, Bowel Resection, Cholecystectomy, Hysterectomy, Joint Replacement, Orthopedic Surgery, Tonsillectomy Additional Past Surgical History / Comment(s): Exploratory laparotomy with ovarian tumor removal and lysis of adhesions, bilateral knee replacements, bilateral cataract removals, D&C/, glaucoma procedure left eye, non functioning neurostimlator removed, glaucoma surgery, colonoscopy, colostomy 03/20/2022-mult surgeries for draing wound w/ 2nd ostomy site for fistula draining rt lower abd, trigger finger release. Past Anesthesia/Blood Transfusion Reactions: No Reported Reaction Additional Past Anesthesia/Blood Transfusion Reaction / Comment(s): Family hx unknown, patient was adopted. No hx blood transfusions Past Psychological History: Bipolar, Depression Smoking Status: Former smoker Past Alcohol Use History: Occasional Past Drug Use History: None Reported
[2024-09-19 05:54] VITALS: RESP 20
[2024-09-19 06:17] LABS: Glucose,Whole Blood 138 mg/dL (70-110)
[2024-09-19 07:13] LABS: INR 3.9 (<1.2); Prothrombin Time 38.5 sec (10.0-12.5)
[2024-09-19 09:59] VITALS: BMI 41.8
[2024-09-19 11:18] LABS: Glucose,Whole Blood 141 mg/dL (70-110)
[2024-09-19 11:27] VITALS: BP 118/50; PULSE 59; TEMP 97.9
--- NOTE | 2024-09-19 17:58 | P.DS ---
Providers Date of admission: 09/14/24 20:14 Expected date of discharge: 09/19/24 Attending physician: Milind Martel Consults: 09/14/24 20:13 Consult Physician Urgent Consulting Provider: [facility] Consult Reason/Comments: afib with rvr Do you want consulting provider notified?: Yes Primary care physician: Linda Sanders [facility] Course: Chief Complaint: Heart racing Pleasant 79-year-old patient who follows with Shelia Sanders. Patient was seen by me this afternoon in the ER. Chronic medical conditions include diabetes, depression, hypothyroid, essential hypertension, chronic low back pain. 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 With drains slowly. Patient was just discharged from [facility] where she was there for 8 days. Discharged 3 days ago. Patient had presented here at [facility] ER on September 05. With dark stools. She was then transferred to [facility]. She was told she has a bleeding ulcer there. Patient's pain had heart racing for about a week. More so in the last 2 3 days. Having some nausea. Some shortness of breath. Found to be in atrial fibrillation. Started Cardizem drip 5 mg an hour. September 16: Remains on Cardizem drip 5 mg an hour. Also on Toprol-XL 150 mg twice daily per cardiology. Heart rate in A-fib remains 120s. Otherwise patient feels better. Tolerating diet. Cardiology has resumed patient's IV heparin and Coumadin. Awaiting records from [facility] from last week discharge. Nurse reminded for the same. September 17: Patient seen this afternoon. Heart rate is in the 90s. Patient is feeling fine. Tolerating diet. On Coumadin per cardiology. Cardizem 30 mg p.o. 3 times daily was added. Toprol-XL 150 twice daily. September 18: Breathing better. On oral Cardizem 30 mg 3 times daily. Toprol-XL 150 mg twice daily. IV heparin Coumadin continued per cardiology. No cardiac symptoms. Eating fair. September 19: Patient records from [facility] records show that EGD showed a gastric antral ulcer. Patient's hemoglobin to be monitored outpatient. Discussed with patient. Follow-up INR at cardiology office. On Sunday. Continue with PPI. Cleared by cardiology. Patient told to hold off Coumadin tonight. Also discussed with the nurse. Discussion and discharge planning more than 35 minutes Social history: Does use a walker and a rollator. Lives alone. Spoke for 38 years. 1 to 2 packs a day. Stopped in 1997. Alcohol occasionally. Physical examination: VITAL SIGNS: 97.9, 59, 20, 118 x 50, 96% 2 L GENERAL: BMI 49.9, reclining bed awake, comfortable EYES: Pupils equal. Conjunctiva paco l. HEENT: External appearance of nose and ears normal, oral cavity grossly normal. NECK: JVD unable to assess; masses not palpable. HEART: Heart sounds irregular l; no edema. LUNGS: Respiratory rate normal decreased breath sounds. ABDOMEN: Soft, nontender, liver spleen not palpable, no masses palpable. Left- sided colostomy with brown stool. Lower abdominal fistula. PSYCH: Alert and oriented x3; mood and affect paco l. MUSCULOSKELETAL:No Clubbing/cyanosis;muscles-grossly intact. OA INVESTIGATIONS, reviewed in the clinical context: September 19: INR 3.9 September 18: White count 9.9 hemoglobin 9.3 platelets 354 potassium 4.2 BUN 25 creatinine 1.36 September 17: White count 9.1 hemoglobin 9 INR 1.2 September 16: White count 9.2 hemoglobin 9.1 platelets 355 September 15: White count 7.1 hemoglobin 9.3 platelet 380 sodium 138 potassium 4.3 BUN 19 creatinine 1.14 EKG tracing personally reviewed by me-atrial fibrillation. Rate 132. Right bundle fariha block pattern. Some ST-T wave changes. Chest x-ray film personally reviewed by me-underpenetrated/pulm edema Assessment and plan: -New onset atrial fibrillation with a rapid ventricular rate: [id number] IV Cardizem drip 5 mg an hour initially. Toprol-XL 150 mg twice daily Cardizem 30 mg 3 times daily until Cardiology following.-The patient on Coumadin. -Coumadin monitoring Coumadin dose to be held tonight. Resume from tomorrow. INR on Sunday with cardiology. 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 Does use a daily 4 x 4 dressing. With some drainage chronically -Chronic diverticulitis with frozen pelvis -Diabetes mellitus type 2, chronically on insulin and oral hypoglycemic Follow Accu-Cheks and sliding scale. Resume home dose of insulin. -Depression Cymbalta -Last week diagnosed bleeding peptic ulcer Protonix. Records have been requested from [facility]. Nurse reminded today again for the same. Per cardiology IV heparin and Coumadin. -Hypothyroid Synthroid 112 mcg -Essential hypertension Toprol-XL, Cardizem -Chronic low back pain from arthritis oxycodone Disposition: Home Past Medical History Past Medical History: Asthma, Coronary Artery Disease (CAD), Cancer, Diabetes Mellitus, Hearing Disorder / Deafness, Hyperlipidemia, Hypertension, Neurologic Disorder, Osteoarthritis (OA), Pneumonia, Renal Disease, Thyroid Disorder Additional Past Medical History / Comment(s): Hx Pneumonia and Bronchitis. Hx right ovarian cancer had chemo - finished October 2017. 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 Has colostomy- left abd abd,has 2nd ostomy rt lower abd area from small intestinal fistula draining-follows now w/ [facility]. Neuropathy in hands and feet. Hard of hearing. Diverticulosis. History of Any Multi-Drug Resistant Organisms: ESBL, MRSA Date of last positivie culture/infection: 08/21/23 ESBL;08/31/22-MRSA MDRO Source:: Abdomen-MRSA; Urine-ESBL Past Surgical History: Appendectomy, Bowel Resection, Cholecystectomy, Hysterectomy, Joint Replacement, Orthopedic Surgery, Tonsillectomy Additional Past Surgical History / Comment(s): Exploratory laparotomy with ovarian tumor removal and lysis of adhesions, bilateral knee replacements, bilateral cataract removals, D&C/, glaucoma procedure left eye, non functioning neurostimlator removed, glaucoma surgery, colonoscopy, colostomy 03/20/2022-mult surgeries for draing wound w/ 2nd ostomy site for fistula draining rt lower abd, trigger finger release. Past Anesthesia/Blood Transfusion Reactions: No Reported Reaction Additional Past Anesthesia/Blood Transfusion Reaction / Comment(s): Family hx unknown, patient was adopted. No hx blood transfusions Past Psychological History: Bipolar, Depression Smoking Status: Former smoker Past Alcohol Use History: Occasional Past Drug Use History: None Reported Plan - Discharge Summary Discharge Rx Participant: No New Discharge Prescriptions: New Metoprolol Succinate (ER) [Toprol XL] 150 mg PO BID #60 tab Warfarin [Coumadin] 5 mg PO HS #30 tab Furosemide [Lasix] 20 mg PO DAILY #20 tab Diltiazem Oral [Cardizem*] 30 mg PO TID #90 tab Continue DULoxetine HCL [Cymbalta] 60 mg PO DAILY Baclofen 10 mg PO QID PRN PRN Reason: Muscle Spasm Atorvastatin Calcium [Lipitor] 40 mg PO HS oxyCODONE HCL [oxyCODONE HCL (IR)] 10 mg PO Q6H PRN 3 Days #12 tab PRN Reason: Pain Insulin NPH Hum/Reg Insulin Hm [NovoLIN 70-30 100 Unit/ml Vial] 10 unit SQ AC-BID Levothyroxine Sodium [Synthroid] 112 mcg PO DAILY Insulin Glargine/Lixisenatide [Soliqua 100 Unit-33 Mcg/ml Pen] 45 units SQ DAILY Pantoprazole [Protonix] 40 mg PO DAILY Pioglitazone HCl 15 mg PO DAILY busPIRone HCL [Buspar] 7.5 mg PO BID PRN PRN Reason: Anxiety Discontinued Metoprolol Succinate (ER) [Toprol Xl] 75 mg PO BID hydrALAZINE HCL [Apresoline] 50 mg PO BID Docusate Sodium [Dok] 200 mg PO BID PRN PRN Reason: STOOL SOFTENING amLODIPine [Norvasc] 10 mg PO DAILY Discharge Medication List Baclofen 10 mg PO QID PRN 01/06/16 [History] DULoxetine HCL [Cymbalta] 60 mg PO DAILY 01/06/16 [History] Atorvastatin Calcium [Lipitor] 40 mg PO HS 12/31/18 [History] oxyCODONE HCL [oxyCODONE HCL (IR)] 10 mg PO Q6H PRN 3 Days #12 tab 03/23/22 [Rx] Insulin NPH Hum/Reg Insulin Hm [NovoLIN 70-30 100 Unit/ml Vial] 10 unit SQ AC- BID 06/13/23 [History] Pioglitazone HCl 15 mg PO DAILY 06/13/23 [History] Insulin Glargine/Lixisenatide [Soliqua 100 Unit-33 Mcg/ml Pen] 45 units SQ DAILY 09/14/24 [History] Levothyroxine Sodium [Synthroid] 112 mcg PO DAILY 09/14/24 [History] Pantoprazole [Protonix] 40 mg PO DAILY 09/14/24 [History] busPIRone HCL [Buspar] 7.5 mg PO BID PRN 09/14/24 [History] Furosemide [Lasix] 20 mg PO DAILY #20 tab 09/17/24 [Rx] Metoprolol Succinate (ER) [Toprol XL] 150 mg PO BID #60 tab 09/17/24 [Rx] Warfarin [Coumadin] 5 mg PO HS #30 tab 09/17/24 [Rx] Diltiazem Oral [Cardizem*] 30 mg PO TID #90 tab 09/19/24 [Rx] Follow up Appointment(s)/Referral(s): Linda Sanders MD [Primary Care Provider] - 1-2 days (Office closed at time of discharge. Please ensure office is aware this is an appointment following a ho spital stay.) [facility], [NON-STAFF] - Drew Gage MD [STAFF PHYSICIAN] - 09/24/24 10:00 am Patient Instructions/Handouts: A-fib (Atrial Fibrillation) (DC) Activity/Diet/Wound Care/Special Instructions: f/u inr - sunday with cardiology Discharge Disposition: HOME SELF-CARE
[2024-09-19] MEDS ORDERED: WARFARIN 0.5 MG TAB PO ONE (18:00)
== END 2024-09-19 15:11 | disposition home health service (06) | DRG 308 ==
LOC: EC 18:53 → 3SCARD 20:14
PROVIDERS: ADMIT Hospitalist; ATTEND Hospitalist
PROC: 3E033RZ Introduction of Antiarrhythmic into Peripheral Vein, Percutaneous Approach (ICD-10-PCS; principal; 2024-09-14)
DX: I48.0 Paroxysmal atrial fibrillation (principal); I50.31 Acute diastolic (congestive) heart failure; I13.0 Hypertensive heart and chronic kidney disease with heart failure and stage 1 through stage 4 chronic kidney disease, or unspecified chronic kidney disease; Z68.42 Body mass index [BMI] 45.0-49.9, adult; E11.22 Type 2 diabetes mellitus with diabetic chronic kidney disease; F31.9 Bipolar disorder, unspecified; J45.909 Unspecified asthma, uncomplicated; K25.9 Gastric ulcer, unspecified as acute or chronic, without hemorrhage or perforation; N18.9 Chronic kidney disease, unspecified; I08.1 Rheumatic disorders of both mitral and tricuspid valves; E03.9 Hypothyroidism, unspecified; K57.32 Diverticulitis of large intestine without perforation or abscess without bleeding; E66.01 Morbid (severe) obesity due to excess calories; E11.42 Type 2 diabetes mellitus with diabetic polyneuropathy; Z79.4 Long term (current) use of insulin; Z93.3 Colostomy status; I48.3 Typical atrial flutter; Z99.81 Dependence on supplemental oxygen; E78.5 Hyperlipidemia, unspecified; I25.10 Atherosclerotic heart disease of native coronary artery without angina pectoris; G89.29 Other chronic pain; M54.50 Low back pain, unspecified; H91.90 Unspecified hearing loss, unspecified ear; R32 Unspecified urinary incontinence; H40.9 Unspecified glaucoma; K59.00 Constipation, unspecified; Z79.85 Long-term (current) use of injectable non-insulin antidiabetic drugs; Z79.84 Long term (current) use of oral hypoglycemic drugs; Z79.890 Hormone replacement therapy; Z79.899 Other long term (current) drug therapy; Z87.891 Personal history of nicotine dependence; Z85.43 Personal history of malignant neoplasm of ovary; Z87.440 Personal history of urinary (tract) infections; Z86.14 Personal history of Methicillin resistant Staphylococcus aureus infection; Z96.653 Presence of artificial knee joint, bilateral; Z88.0 Allergy status to penicillin; Z88.1 Allergy status to other antibiotic agents
CPT/HCPCS: 36415; 71046; 80048; 80053; 83735; 83880; 84443; 84484; 85025; 85027; 85610; 85730; 93005; 93306; 96365; 96366; 96367; 96368; 99291

== ENCOUNTER 2024-09-21 15:29 | Inpatient (IN) | payer MEDICARE ==
--- NOTE | 2024-09-21 15:55 | ED ---
General Adult HPI - General Chief complaint: Recheck/Abnormal Lab/Rx Stated complaint: Cardiac issue Time Seen by Provider: 09/21/24 15:45 Source: patient, EMS, RN notes reviewed, old records reviewed Mode of arrival: EMS - History of Present Illness Initial comments: This is an 79-year-old female who presents to the emergency department the history of atrial fibrillation. Patient states she felt like she was having some palpitations and fluttering yesterday and today it has been ongoing all day long. Patient denies chest pain and states she has a little bit of shortness of breath with it. Patient denies any fever chills or cough. Patient denies any back pain. Patient has abdominal pain patient has nausea vomiting diarrhea. Patient states she is on Cardizem and Coumadin - Related Data Home Medications Medication Instructions Recorded Confirmed Baclofen 10 mg PO QID PRN 01/06/16 09/21/24 DULoxetine HCL [Cymbalta] 60 mg PO DAILY 01/06/16 09/21/24 Atorvastatin Calcium [Lipitor] 40 mg PO HS 12/31/18 09/21/24 Insulin NPH Hum/Reg Insulin Hm 10 unit SQ AC-BID 06/13/23 09/21/24 [NovoLIN 70-30 100 Unit/ml Vial] Pioglitazone HCl 15 mg PO DAILY 06/13/23 09/21/24 Insulin Glargine/Lixisenatide 45 units SQ DAILY 09/14/24 09/21/24 [Soliqua 100 Unit-33 Mcg/ml Pen] Levothyroxine Sodium [Synthroid] 112 mcg PO DAILY 09/14/24 09/21/24 Pantoprazole [Protonix] 40 mg PO DAILY 09/14/24 09/21/24 busPIRone HCL [Buspar] 7.5 mg PO BID PRN 09/14/24 09/21/24 Previous Rx's Medication Instructions Recorded oxyCODONE HCL [oxyCODONE HCL (IR)] 10 mg PO Q6H PRN 3 Days #12 tab 03/23/22 Furosemide [Lasix] 20 mg PO DAILY #20 tab 09/17/24 Metoprolol Succinate (ER) [Toprol 150 mg PO BID #60 tab 09/17/24 XL] Warfarin [Coumadin] 5 mg PO HS #30 tab 09/17/24 Diltiazem Oral [Cardizem*] 30 mg PO TID #90 tab 09/19/24 Allergies Allergy/AdvReac Type Severity Reaction Status Date / Time adhesive Allergy blisters Verified 09/21/24 18:29 amoxicillin Allergy Rash/Hives Verified 09/21/24 18:29 ciprofloxacin [From Cipro] AdvReac Dyspnea Verified 09/21/24 18:29 ciprofloxacin HCl AdvReac Dyspnea Verified 09/21/24 18:29 [From Cipro] Review of Systems ROS Statement: Those systems with pertinent positive or pertinent negative responses have been documented in the HPI. ROS Other: All systems not noted in ROS Statement are negative. Past Medical History Past Medical History: Atrial Fibrillation, Atrial Flutter, Asthma, Coronary Artery Disease (CAD), Cancer, Diabetes Mellitus, GI Bleed, Hearing Disorder / Deafness, Hyperlipidemia, Hypertension, Neurologic Disorder, Osteoarthritis (OA), Pneumonia, Renal Disease, Thyroid Disorder Additional Past Medical History / Comment(s): Hx Pneumonia and Bronchitis. Hx right ovarian cancer had chemo - finished October 2017. 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 Has colostomy- left abd abd,has 2nd ostomy rt lower abd area from small intestinal fistula draining-follows now w/ Dr Zoie [facility] [place]. Neuropathy in hands and feet. Hard of hearing. Diverticulosis. Bleeding Ulcer 08/2024 History of Any Multi-Drug Resistant Organisms: ESBL, MRSA Date of last positivie culture/infection: 08/21/23 ESBL;08/31/22-MRSA MDRO Source:: Abdomen-MRSA; Urine-ESBL Past Surgical History: Appendectomy, Bowel Resection, Cholecystectomy, Hysterectomy, Joint Replacement, Orthopedic Surgery, Tonsillectomy Additional Past Surgical History / Comment(s): Exploratory laparotomy with ovarian tumor removal and lysis of adhesions, bilateral knee replacements, bilateral cataract removals, D&C/, glaucoma procedure left eye, non functioning neurostimlator removed, glaucoma surgery, colonoscopy, colostomy 03/20/2022-mult surgeries for draing wound w/ 2nd ostomy site for fistula draining rt lower abd, trigger finger release. Past Anesthesia/Blood Transfusion Reactions: No Reported Reaction Additional Past Anesthesia/Blood Transfusion Reaction / Comment(s): Family hx unknown, patient was adopted. No hx blood transfusions Past Psychological History: Bipolar, Depression Smoking Status: Former smoker Past Alcohol Use History: Occasional Past Drug Use History: None Reported - Past Family History Father History Unknown: Yes Family Medical History: Unable to Obtain Additional Family Medical History / Comment(s): Pt is adopted and does not know parents medical history. General Exam - General Exam Comments Initial Comments: GENERAL: Patient is well-developed and well-nourished. Patient is nontoxic and well- hydrated and is in mild distress. ENT: Neck is soft and supple. No significant lymphadenopathy is noted. Oropharynx is clear. Moist mucous membranes. Neck has full range of motion without eliciting any pain. EYES: The sclera were anicteric and conjunctiva were pink and moist. Extraocular movements were intact and pupils were equal round and reactive to light. Eyelids were unremarkable. PULMONARY: Unlabored respirations. Good breath sounds bilaterally. No audible rales rhonchi or wheezing was noted. CARDIOVASCULAR: Heart rate is irregular and at a rate of about 130 bpm ABDOMEN: Soft and nontender with normal bowel sounds. SKIN: Skin is clear with no lesions or rashes and otherwise unremarkable. NEUROLOGIC: Patient is alert and oriented x3. Cranial nerves II through XII are grossly intact. Motor and sensory are also intact. Normal speech, volume and content. Symmetrical smile. MUSCULOSKELETAL: Normal extremities with adequate strength and full range of motion. LYMPHATICS: No significant lymphadenopathy is noted PSYCHIATRIC: Normal psychiatric evaluation. Course Vital Signs 09/21/24 09/21/24 09/21/24 15:44 15:53 18:33 Temperature 98.9 F Pulse Rate 128 H 128 H Respiratory 16 16 Rate Blood Pressure 123/84 122/66 O2 Sat by Pulse 91 L 96 100 Oximetry Medical Decision Making - Medical Decision Making EKG is interpreted by myself but EKG shows atrial flutter at 127 bpm QRS is 137 QT interval is 341 QTc is 416. Patient's EKG shows right bundle branch block Was pt. sent in by a medical professional or institution (, [facility], TEAM SUPERVISOR, urgent care, hospital, or fpc...) When possible be specific @ -No Did you speak to anyone other than the patient for history (EMS, parent, family, police, friend...)? What history was obtained from this source @ -No Did you review nursing and triage notes (agree or disagree)? Why? @ -I reviewed and agree with nursing and triage notes Were old charts reviewed (outside hosp., previous admission, EMS record, old EKG, old radiological studies, urgent care reports/EKG's, fpc records)? Report findings @ -No old charts were reviewed Differential Diagnosis? @ -Differential Palpitations Ventricular arrhythmias, atrial arrhythmias, myocardial infarction, anemia, thyrotoxicosis, electrolyte imbalance, hypokalemia, pulmonary embolism, pulmonary disease, drugs, alcohol, anxiety, stress.... This is not meant to be an all-inclusive list. EKG interpreted by me (3pts min.). @ -As above X-rays interpreted by me (1pt min.). @ -Chest x-ray shows no acute abnormality CT interpreted by me (1pt min.). @ -None done U/S interpreted by me (1pt. min.). @ -None done What testing was considered but not performed or refused? (CT, X-rays, U/S, labs)? Why? @ -None What meds were considered but not given or refused? Why? @ -None Did you discuss the management of the patient with other professionals (professionals i.e. , PA, TEAM SUPERVISOR, lab, RT, psych nurse, social science instructor, environmental lawyer, teacher, canine enforcement officer, case liner)? Give summary @ -Spoke with [facility] they agreed to admit the patient admit the patient wrote admitting orders Was smoking cessation discussed for >3mins.? @ -No Was critical care preformed (if so, how long)? @ -35 minutes Were there social determinants of health that impacted care today? How? (Homelessness, low income, unemployed, alcoholism, drug addiction, transportation, low edu. Level, literacy, decrease access to med. care, usp, rehab)? @ -No Was there de-escalation of care discussed even if they declined (Discuss DNR or withdrawal of care, Hospice)? DNR status @ -No What co-morbidities impacted this encounter? (DM, HTN, Smoking, COPD, CAD, Cancer, CVA, ARF, Chemo, Hep., AIDS, mental health diagnosis, sleep apnea, morbid obesity)? @ -None Was patient admitted / discharged? Hospital course, mention meds given and route, prescriptions, significant lab abnormalities, going to OR and other pertinent info. @ -Patient's heart rate was rapid so I started the patient on Cardizem and patient was already on Coumadin it was elevated with an INR of 1.6 so no further anticoagulation was done Undiagnosed new problem with uncertain prognosis? @ -No Drug Therapy requiring intensive monitoring for toxicity (Heparin, Nitro, Insulin, Cardizem)? @ -No Were any procedures done? @ -No Diagnosis/symptom? @ -A-fib flutter with rapid ventricular response Acute, or Chronic, or Acute on Chronic? @ -Acute Uncomplicated (without systemic symptoms) or Complicated (systemic symptoms)? @ -Complicate Side effects of treatment? @ -Getting Exacerbation, Progression, or Severe Exacerbation? @ -No Poses a threat to life or bodily function? How? (Chest pain, [place], NC, pneumonia, PE, COPD, DKA, ARF, appy, cholecystitis, CVA, Diverticulitis, Homicidal, Suicidal, threat to staff... and all critical care pts) @ -Yes this could lead to perfusion and endorgan dysfunction - Lab Data Result diagrams: 09/21/24 16:07 09/21/24 16:07 Lab Results 09/21/24 09/21/24 09/21/24 Range/Units 16:07 16:07 16:07 WBC 8.5 (3.8-10.6) k/uL RBC 3.62 L (3.80-5.40) m/uL Hgb 10.2 L (11.4-16.0) gm/dL Hct 33.0 L (34.0-46.0) % MCV 91.2 (80.0-100.0) fL MCH 28.1 (25.0-35.0) pg MCHC 30.8 L (31.0-37.0) g/dL RDW 16.0 H (11.5-15.5) % Plt Count 376 (150-450) k/uL MPV 7.8 Neutrophils % 81 % Lymphocytes % 9 % Monocytes % 7 % Eosinophils % 2 % Basophils % 0 % Neutrophils # 6.9 (1.3-7.7) k/uL Lymphocytes # 0.7 L (1.0-4.8) k/uL Monocytes # 0.6 (0-1.0) k/uL Eosinophils # 0.2 (0-0.7) k/uL Basophils # 0.0 (0-0.2) k/uL Hypochromasia Marked PT 65.2 H (10.0-12.5) sec INR 6.6 H* (<1.2) APTT 32.4 H (22.0-30.0) sec Sodium 137 (137-145) mmol/L Potassium 4.3 (3.5-5.1) mmol/L Chloride 97 L (98-107) mmol/L Carbon Dioxide 34 H (22-30) mmol/L Anion Gap 6 mmol/L BUN 20 H (7-17) mg/dL Creatinine 1.22 H (0.52-1.04) mg/dL Est GFR (CKD-EPI)AfAm 48 (>60 ml/min/1.73 sqM) Est GFR (CKD-EPI)NonAf 42 (>60 ml/min/1.73 sqM) Glucose 152 H (74-99) mg/dL Calcium 8.2 L (8.4-10.2) mg/dL Magnesium 1.8 (1.6-2.3) mg/dL Total Bilirubin 0.6 (0.2-1.3) mg/dL AST 22 (14-36) U/L ALT 21 (4-34) U/L Alkaline Phosphatase 123 (38-126) U/L Troponin I (0.000-0.034) ng/mL Total Protein 6.3 (6.3-8.2) g/dL Albumin 3.4 L (3.5-5.0) g/dL 09/21/24 Range/Units 16:07 WBC (3.8-10.6) k/uL RBC (3.80-5.40) m/uL Hgb (11.4-16.0) gm/dL Hct (34.0-46.0) % MCV (80.0-100.0) fL MCH (25.0-35.0) pg MCHC (31.0-37.0) g/dL RDW (11.5-15.5) % Plt Count (150-450) k/uL MPV Neutrophils % % Lymphocytes % % Monocytes % % Eosinophils % % Basophils % % Neutrophils # (1.3-7.7) k/uL Lymphocytes # (1.0-4.8) k/uL Monocytes # (0-1.0) k/uL Eosinophils # (0-0.7) k/uL Basophils # (0-0.2) k/uL Hypochromasia PT (10.0-12.5) sec INR (<1.2) APTT (22.0-30.0) sec Sodium (137-145) mmol/L Potassium (3.5-5.1) mmol/L Chloride (98-107) mmol/L Carbon Dioxide (22-30) mmol/L Anion Gap mmol/L BUN (7-17) mg/dL Creatinine (0.52-1.04) mg/dL Est GFR (CKD-EPI)AfAm (>60 ml/min/1.73 sqM) Est GFR (CKD-EPI)NonAf (>60 ml/min/1.73 sqM) Glucose (74-99) mg/dL Calcium (8.4-10.2) mg/dL Magnesium (1.6-2.3) mg/dL Total Bilirubin (0.2-1.3) mg/dL AST (14-36) U/L ALT (4-34) U/L Alkaline Phosphatase (38-126) U/L Troponin I <0.012 (0.000-0.034) ng/mL Total Protein (6.3-8.2) g/dL Albumin (3.5-5.0) g/dL Disposition Clinical Impression: Atrial flutter with rapid ventricular response Disposition: ADMITTED IP TO THIS HOSP Referrals: Linda Sanders MD [Primary Care Provider] - 1-2 days Time of Disposition: 18:52
[2024-09-21] MEDS: SODIUM CHLORIDE 0.9% 500 ML 500 ML IV STA (16:09)
[2024-09-21 16:23] LABS: Basophils % (A) 0 %; Eosinophils # (A) 0.2 k/uL (0-0.7); Eosinophils % (A) 2 %; HGB 10.2 gm/dL (11.4-16.0); Hypochromasia Marked; Lymphocytes # (A) 0.7 k/uL (1.0-4.8); Lymphocytes % (A) 9 %; MCH 28.1 pg (25.0-35.0); MCHC 30.8 g/dL (31.0-37.0); MCV 91.2 fL (80.0-100.0); Mean Platelet Volume 7.8; Monocytes # (A) 0.6 k/uL (0-1.0); Monocytes % (A) 7 %; Neutrophils # (A) 6.9 k/uL (1.3-7.7); Neutrophils % (A) 81 %; Platelet Count 376 k/uL (150-450); RBC 3.62 m/uL (3.80-5.40); WBC 8.5 k/uL (3.8-10.6)
[2024-09-21 16:34] LABS: Partial Thromboplastin Time 32.4 sec (22.0-30.0)
--- NOTE | 2024-09-21 16:35 | XR ---
EXAMINATION TYPE: XR chest 2V DATE OF EXAM: 09/21/2024 4:28 PM COMPARISON: Chest radiographs from 09/14/2024 CLINICAL INDICATION: Female, 79 years old with history of dysrhythmia; TECHNIQUE: XR chest 2V Frontal and lateral views of the chest. FINDINGS: Lungs/Pleura: There is no evidence of pleural effusion, focal consolidation, or pneumothorax. Pulmonary vascularity: Unremarkable. Heart/mediastinum: Cardiomediastinal silhouette is unremarkable. Musculoskeletal: No acute osseous pathology. Left shoulder arthroplasty appears intact. IMPRESSION: Cardiomegaly, pulmonary vascular congestion and bilateral pleural effusions. Correlate with BNP for c ongestive heart failure. [facility] Delia Rivera, , 09/21/2024 4:33 PM
[2024-09-21 16:39] LABS: Prothrombin Time 65.2 sec (10.0-12.5)
[2024-09-21 16:41] LABS: INR 6.6 (<1.2)
[2024-09-21 16:55] LABS: ALT 21 U/L (4-34); AST 22 U/L (14-36); African American GFR (CKD) 48 (>60 ml/min/1.73 sqM); Albumin 3.4 g/dL (3.5-5.0); Alkaline Phosphatase 123 U/L (38-126); Anion Gap 6 mmol/L; Blood Urea Nitrogen 20 mg/dL (7-17); Calcium 8.2 mg/dL (8.4-10.2); Carbon Dioxide 34 mmol/L (22-30); Chloride 97 mmol/L (98-107); Glucose 152 mg/dL (74-99); Magnesium 1.8 mg/dL (1.6-2.3); Non-African American GFR(CKD) 42 (>60 ml/min/1.73 sqM); Potassium 4.3 mmol/L (3.5-5.1); Sodium 137 mmol/L (137-145); Total Bilirubin 0.6 mg/dL (0.2-1.3); Total Protein 6.3 g/dL (6.3-8.2)
[2024-09-21] MEDS: DILTIAZEM DRIP BOLUS FROM BAG 1 MG SOLN IV ONE (19:21)
[2024-09-21] MEDS: DILTIAZEM 125 MG in SODIUM CHLORIDE 0.9% 100 ML IV SCH (19:22)
[2024-09-21 22:35] LABS: Glucose,Whole Blood 61 mg/dL (70-110)
[2024-09-21 23:36] LABS: Glucose,Whole Blood 69 mg/dL (70-110)
[2024-09-22 01:13] LABS: Glucose,Whole Blood 130 mg/dL (70-110)
[2024-09-22] MEDS: BACLOFEN 10 MG TAB PO PRN (06:00)
[2024-09-22 06:07] LABS: Glucose,Whole Blood 201 mg/dL (70-110)
[2024-09-22 06:49] LABS: Anisocytosis Slight; Basophils % (A) 0 %; Eosinophils # (A) 0.2 k/uL (0-0.7); Eosinophils % (A) 3 %; HCT 35.1 % (34.0-46.0); HGB 10.1 gm/dL (11.4-16.0); Hypochromasia Marked; Lymphocytes % (A) 12 %; MCH 27.2 pg (25.0-35.0); MCHC 28.8 g/dL (31.0-37.0); MCV 94.4 fL (80.0-100.0); Monocytes # (A) 0.8 k/uL (0-1.0); Monocytes % (A) 9 %; Neutrophils # (A) 6.6 k/uL (1.3-7.7); Neutrophils % (A) 75 %; Platelet Count 346 k/uL (150-450); RBC 3.72 m/uL (3.80-5.40); RDW 16.1 % (11.5-15.5); WBC 8.8 k/uL (3.8-10.6)
[2024-09-22 06:59] LABS: Prothrombin Time 65.6 sec (10.0-12.5)
[2024-09-22 07:10] LABS: African American GFR (CKD) 56 (>60 ml/min/1.73 sqM); Anion Gap 4 mmol/L; Blood Urea Nitrogen 21 mg/dL (7-17); Calcium 8.5 mg/dL (8.4-10.2); Carbon Dioxide 36 mmol/L (22-30); Chloride 97 mmol/L (98-107); Glucose 190 mg/dL (74-99); INR 6.6 (<1.2); Non-African American GFR(CKD) 48 (>60 ml/min/1.73 sqM); Potassium 4.2 mmol/L (3.5-5.1); Sodium 137 mmol/L (137-145)
--- NOTE | 2024-09-22 07:57 | P.HPIM ---
History of Present Illness This is a pleasant 79 years old female with past medical history of multiple medical problem Presents because of palpitation and syncope. Patient states that she has several episodes of palpitation and racing heartbeat which felt it last night, she could not tell how many times and she could not tell how long it lasted but she says she passed out twice and she was on the floor for 2 to 5 minutes. She denies seizure-like activity, no urine or bowel incontinence or tongue biting. She had some chest pain started mid evening goes up little bit otherwise it is mainly in the middle about 10/10 felt like sharp with nonspecific precipitating and relieving factors. By the time she came to the hospital it was completely resolved and currently with no chest pain. Denies any specific GI/ symptom, no headache dizziness weakness or numbness. She has peripheral neuropathy with left leg worse than the right leg. She denies smoking alcohol and illicit drugs. Blood pressure 167/97, heart rate 127 Labs including CBC, BMP and LFT were unremarkable Troponin is elevated at 0.047 CT of the brain is negative CTA of the head and neck showing moderate left internal carotid artery plaque similar to last time with no change or restriction of velocity. Have complete occlusion of the vertebral arteries. Also has enlarged heterogeneous left lobe of the thyroid which recommended ultrasound Chest x-ray is negative for acute process EKG showing sinus tachycardia at 127 with interventricular conduction delay Patient currently on Cardizem drip. Started her metoprolol 150 mg twice daily. Oral Cardizem was placed on hold Resume rest of her medication admitted with cardiology consult Review of Systems Review of systems CONSTITUTIONAL: No fever, no malaise, no fatigue. HEENT: No recent visual problems or hearing problems. Denied any sore throat. CARDIOVASCULAR: No orthopnea, PND, no palpitations, no syncope. PULMONARY: No shortness of breath, no cough, no hemoptysis. GASTROINTESTINAL: No diarrhea, no nausea, no vomiting, no abdominal pain. Normoactive bowel sounds. NEUROLOGICAL: No headaches, no weakness, no numbness. HEMATOLOGICAL: Denies any bleeding or petechiae. GENITOURINARY: Denies any burning micturition, frequency, or urgency. MUSCULOSKELETAL/RHEUMATOLOGICAL: Denies any joint pain, swelling, or any muscle pain. ENDOCRINE: Denies any polyuria or polydipsia. Past Medical History Past Medical History: Atrial Fibrillation, Atrial Flutter, Asthma, Coronary Artery Disease (CAD), Cancer, Diabetes Mellitus, GI Bleed, Hearing Disorder / Deafness, Hyperlipidemia, Hypertension, Neurologic Disorder, Osteoarthritis (OA), Pneumonia, Renal Disease, Thyroid Disorder Additional Past Medical History / Comment(s): Hx Pneumonia and Bronchitis. Hx right ovarian cancer had chemo - finished October 2017. 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 Has colostomy- left abd abd,has 2nd ostomy rt lower abd area from small intestinal fistula draining-follows now w/ Dr Zoie KoromaTvazft[facility] [place]. Neuropathy in hands and feet. Hard of hearing. Diverticulosis. Bleeding Ulcer 08/2024 History of Any Multi-Drug Resistant Organisms: ESBL, MRSA Date of last positivie culture/infection: 08/21/23 ESBL;08/31/22-MRSA MDRO Source:: Abdomen-MRSA; Urine-ESBL Past Surgical History: Appendectomy, Bowel Resection, Cholecystectomy, Hysterectomy, Joint Replacement, Orthopedic Surgery, Tonsillectomy Additional Past Surgical History / Comment(s): Exploratory laparotomy with ovarian tumor removal and lysis of adhesions, bilateral knee replacements, bilateral cataract removals, D&C/, glaucoma procedure left eye, non functioning neurostimlator removed, glaucoma surgery, colonoscopy, colostomy 03/20/2022-mult surgeries for draing wound w/ 2nd ostomy site for fistula draining rt lower abd, trigger finger release. Past Anesthesia/Blood Transfusion Reactions: No Reported Reaction Additional Past Anesthesia/Blood Transfusion Reaction / Comment(s): Family hx unknown, patient was adopted. No hx blood transfusions Past Psychological History: Bipolar, Depression Smoking Status: Former smoker Past Alcohol Use History: Occasional Past Drug Use History: None Reported - Past Family History Father History Unknown: Yes Family Medical History: Unable to Obtain Additional Family Medical History / Comment(s): Pt is adopted and does not know parents medical history. Medications and Allergies Home Medications Medication Instructions Recorded Confirmed Type Baclofen 10 mg PO QID PRN 01/06/16 09/21/24 History DULoxetine HCL [Cymbalta] 60 mg PO DAILY 01/06/16 09/21/24 History Atorvastatin Calcium [Lipitor] 40 mg PO HS 12/31/18 09/21/24 History oxyCODONE HCL [oxyCODONE HCL (IR)] 10 mg PO Q6H PRN 3 Days #12 tab 03/23/22 09/21/24 Rx Insulin NPH Hum/Reg Insulin Hm 10 unit SQ AC-BID 06/13/23 09/21/24 History [NovoLIN 70-30 100 Unit/ml Vial] Pioglitazone HCl 15 mg PO DAILY 06/13/23 09/21/24 History Insulin Glargine/Lixisenatide 45 units SQ DAILY 09/14/24 09/21/24 History [Soliqua 100 Unit-33 Mcg/ml Pen] Levothyroxine Sodium [Synthroid] 112 mcg PO DAILY 09/14/24 09/21/24 History Pantoprazole [Protonix] 40 mg PO DAILY 09/14/24 09/21/24 History busPIRone HCL [Buspar] 7.5 mg PO BID PRN 09/14/24 09/21/24 History Furosemide [Lasix] 20 mg PO DAILY #20 tab 09/17/24 09/21/24 Rx Metoprolol Succinate (ER) [Toprol 150 mg PO BID #60 tab 09/17/24 09/21/24 Rx XL] Warfarin [Coumadin] 5 mg PO HS #30 tab 09/17/24 09/21/24 Rx Diltiazem Oral [Cardizem*] 30 mg PO TID #90 tab 09/19/24 09/21/24 Rx Allergies Allergy/AdvReac Type Severity Reaction Status Date / Time adhesive Allergy blisters Verified 09/21/24 18:29 amoxicillin Allergy Rash/Hives Verified 09/21/24 18:29 ciprofloxacin [From Cipro] AdvReac Dyspnea Verified 09/21/24 18:29 ciprofloxacin HCl AdvReac Dyspnea Verified 09/21/24 18:29 [From Cipro] Physical Exam Vitals: Vital Signs Temp Pulse Resp BP Pulse Ox 09/22/24 06:00 98.0 F 127 H 18 121/70 98 09/22/24 02:56 97.8 F 125 H 17 100/73 95 09/22/24 00:10 98.0 F 125 H 19 109/61 99 09/21/24 22:39 125 H 20 99 09/21/24 19:29 98.9 F 128 H 16 118/57 100 09/21/24 18:33 128 H 16 122/66 100 09/21/24 15:53 96 09/21/24 15:44 98.9 F 128 H 16 123/84 91 L Intake and Output 09/21/24 09/22/24 09/22/24 22:59 06:59 14:59 Other: Weight 108.409 kg GENERAL: The patient is alert and oriented x3, not in any acute distress. Well developed, well nourished. HEENT: Pupils are round and equally reacting to light. EOMI. No scleral icterus. No conjunctival pallor. Normocephalic, atraumatic. No pharyngeal erythema. No thyromegaly. CARDIOVASCULAR: S1 and S2 present. No murmurs, rubs, or gallops. PULMONARY: Chest is clear to auscultation, no wheezing , no crackles. ABDOMEN: Soft, nontender, nondistended, normoactive bowel sounds. No palpable organomegaly. MUSCULOSKELETAL: No joint swelling or deformity. EXTREMITIES: No cyanosis, clubbing, or pedal edema. NEUROLOGICAL: Gross neurological examination did not reveal any focal deficits. SKIN: No rashes. no petechiae. Results CBC & Chem 7: 09/22/24 06:27 09/22/24 06:27 Labs: Abnormal Lab Results - Last 24 Hours (Table) 09/21/24 09/21/24 09/21/24 Range/Units 16:07 16:07 16:07 RBC 3.62 L (3.80-5.40) m/uL Hgb 10.2 L (11.4-16.0) gm/dL Hct 33.0 L (34.0-46.0) % MCHC 30.8 L (31.0-37.0) g/dL RDW 16.0 H (11.5-15.5) % Lymphocytes # 0.7 L (1.0-4.8) k/uL PT 65.2 H (10.0-12.5) sec INR 6.6 H* (<1.2) APTT 32.4 H (22.0-30.0) sec Chloride 97 L (98-107) mmol/L Carbon Dioxide 34 H (22-30) mmol/L BUN 20 H (7-17) mg/dL Creatinine 1.22 H (0.52-1.04) mg/dL Glucose 152 H (74-99) mg/dL POC Glucose (mg/dL) (70-110) mg/dL Calcium 8.2 L (8.4-10.2) mg/dL Albumin 3.4 L (3.5-5.0) g/dL 09/21/24 09/21/24 09/22/24 Range/Units 22:32 23:34 01:11 RBC (3.80-5.40) m/uL Hgb (11.4-16.0) gm/dL Hct (34.0-46.0) % MCHC (31.0-37.0) g/dL RDW (11.5-15.5) % Lymphocytes # (1.0-4.8) k/uL PT (10.0-12.5) sec INR (<1.2) APTT (22.0-30.0) sec Chloride (98-107) mmol/L Carbon Dioxide (22-30) mmol/L BUN (7-17) mg/dL Creatinine (0.52-1.04) mg/dL Glucose (74-99) mg/dL POC Glucose (mg/dL) 61 L 69 L 130 H (70-110) mg/dL Calcium (8.4-10.2) mg/dL Albumin (3.5-5.0) g/dL 09/22/24 09/22/24 09/22/24 Range/Units 06:05 06:27 06:27 RBC 3.72 L (3.80-5.40) m/uL Hgb 10.1 L (11.4-16.0) gm/dL Hct (34.0-46.0) % MCHC 28.8 L (31.0-37.0) g/dL RDW 16.1 H (11.5-15.5) % Lymphocytes # (1.0-4.8) k/uL PT (10.0-12.5) sec INR (<1.2) APTT (22.0-30.0) sec Chloride 97 L (98-107) mmol/L Carbon Dioxide 36 H (22-30) mmol/L BUN 21 H (7-17) mg/dL Creatinine 1.09 H (0.52-1.04) mg/dL Glucose 190 H (74-99) mg/dL POC Glucose (mg/dL) 201 H (70-110) mg/dL Calcium (8.4-10.2) mg/dL Albumin (3.5-5.0) g/dL 09/22/24 Range/Units 06:27 RBC (3.80-5.40) m/uL Hgb (11.4-16.0) gm/dL Hct (34.0-46.0) % MCHC (31.0-37.0) g/dL RDW (11.5-15.5) % Lymphocytes # (1.0-4.8) k/uL PT 65.6 H (10.0-12.5) sec INR 6.6 H* (<1.2) APTT (22.0-30.0) sec Chloride (98-107) mmol/L Carbon Dioxide (22-30) mmol/L BUN (7-17) mg/dL Creatinine (0.52-1.04) mg/dL Glucose (74-99) mg/dL POC Glucose (mg/dL) (70-110) mg/dL Calcium (8.4-10.2) mg/dL Albumin (3.5-5.0) g/dL Assessment and Plan Assessment: Syncope x 2 Sinus tachycardia with history of A-fib Elevated troponin Left goiter, require further workup as an outpatient. Peripheral neuropathy, left leg more than right Plan: Continue with Cardizem drip at 5 mg/h Continue with metoprolol 150 mg twice daily Continue with aspirin 325 mg Cardiology consult Check TSH and vitamin B12 and folate Labs and medication were reviewed.. Continue same treatment. Continue with symptomatic treatment. Resume home medication. Monitor labs and vitals. DVT and GI prophylaxis. Further recommendations as per clinical course of the patient DVT prophylaxis: Subcutaneous heparin GI Prophylaxis: Pepcid PT/OT: Pending Prognosis is guarded
--- NOTE | 2024-09-22 08:24 | P.HPIM ---
History of Present Illness This is a pleasant 79 years old female with past medical history of multiple medical problems including atrial fibrillation, coronary artery disease, chronic kidney disease LLQ colostomy and lower abdominal fistula Presents because of rapid heart beat since 2 days ago, Sunday was a sporadic Sunday was the whole day. She called her cardiovascular surgeon Dr. Garcia who referred her to emergency room Patient has ongoing right chest pain comes and goes, she had it over the last 2 days mild on the right side felt like a "no specific previous dating or relieving factors. No dyspnea but she was placed on oxygen for comfort emergency room. No coughing. No specific GI/ symptom. She feels little dizzy when she sits up. No headache weakness or numbness. She denies smoking alcohol or illicit drugs. She is hemodynamically stable. She is tachycardic with heart rate about 128 since admission. Hemoglobin 10.2 and INR 6.6. Creatinine 1.2 with baseline 1.1-1.3. Chest x-ray showed cardiomegaly with pulmonary vascular congestion and bilateral pleural effusion. EKG showing atrial flutter with a rate of 128 Review of Systems Review of systems CONSTITUTIONAL: No fever, no malaise, no fatigue. HEENT: No recent visual problems or hearing problems. Denied any sore throat. CARDIOVASCULAR: No orthopnea, PND, no palpitations, no syncope. PULMONARY: No shortness of breath, no cough, no hemoptysis. GASTROINTESTINAL: No diarrhea, no nausea, no vomiting, no abdominal pain. Normoactive bowel sounds. NEUROLOGICAL: No headaches, no weakness, no numbness. HEMATOLOGICAL: Denies any bleeding or petechiae. GENITOURINARY: Denies any burning micturition, frequency, or urgency. MUSCULOSKELETAL/RHEUMATOLOGICAL: Denies any joint pain, swelling, or any muscle pain. ENDOCRINE: Denies any polyuria or polydipsia. Past Medical History Past Medical History: Atrial Fibrillation, Atrial Flutter, Asthma, Coronary Artery Disease (CAD), Cancer, Diabetes Mellitus, GI Bleed, Hearing Disorder / Deafness, Hyperlipidemia, Hypertension, Neurologic Disorder, Osteoarthritis (OA ), Pneumonia, Renal Disease, Thyroid Disorder Additional Past Medical History / Comment(s): Hx Pneumonia and Bronchitis. Hx right ovarian cancer had chemo - finished October 2017. 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 Has colostomy- left abd abd,has 2nd ostomy rt lower abd area from small intestinal fistula draining-follows now w/ [facility] Neuropathy in hands and feet. Hard of hearing. Diverticulosis. Bleeding Ulcer 08/2024 History of Any Multi-Drug Resistant Organisms: ESBL, MRSA Date of last positivie culture/infection: 08/21/23 ESBL;08/31/22-MRSA MDRO Source:: Abdomen-MRSA; Urine-ESBL Past Surgical History: Appendectomy, Bowel Resection, Cholecystectomy, Hysterectomy, Joint Replacement, Orthopedic Surgery, Tonsillectomy Additional Past Surgical History / Comment(s): Exploratory laparotomy with ov santhosh tumor removal and lysis of adhesions, bilateral knee replacements, bilateral cataract removals, D&C/, glaucoma procedure left eye, non functioning neurostimlator removed, glaucoma surgery, colonoscopy, colostomy 03/20/2022-mult surgeries for draing wound w/ 2nd ostomy site for fistula draining rt lower abd, trigger finger release. Past Anesthesia/Blood Transfusion Reactions: No Reported Reaction Additional Past Anesthesia/Blood Transfusion Reaction / Comment(s): Family hx unknown, patient was adopted. No hx blood transfusions Past Psychological History: Bipolar, Depression Smoking Status: Former smoker Past Alcohol Use History: Occasional Past Drug Use History: None Reported - Past Family History Father History Unknown: Yes Family Medical History: Unable to Obtain Additional Family Medical History / Comment(s): Pt is adopted and does not know parents medical history. Medications and Allergies Home Medications Medication Instructions Recorded Confirmed Type Baclofen 10 mg PO QID PRN 01/06/16 09/21/24 History DULoxetine HCL [Cymbalta] 60 mg PO DAILY 01/06/16 09/21/24 History Atorvastatin Calcium [Lipitor] 40 mg PO HS 12/31/18 09/21/24 History oxyCODONE HCL [oxyCODONE HCL (IR)] 10 mg PO Q6H PRN 3 Days #12 tab 03/23/22 09/21/24 Rx Insulin NPH Hum/Reg Insulin Hm 10 unit SQ AC-BID 06/13/23 09/21/24 History [NovoLIN 70-30 100 Unit/ml Vial] Pioglitazone HCl 15 mg PO DAILY 06/13/23 09/21/24 History Insulin Glargine/Lixisenatide 45 units SQ DAILY 09/14/24 09/21/24 History [Soliqua 100 Unit-33 Mcg/ml Pen] Levothyroxine Sodium [Synthroid] 112 mcg PO DAILY 09/14/24 09/21/24 History Pantoprazole [Protonix] 40 mg PO DAILY 09/14/24 09/21/24 History busPIRone HCL [Buspar] 7.5 mg PO BID PRN 09/14/24 09/21/24 History Furosemide [Lasix] 20 mg PO DAILY #20 tab 09/17/24 09/21/24 Rx Metoprolol Succinate (ER) [Toprol 150 mg PO BID #60 tab 09/17/24 09/21/24 Rx XL] Warfarin [Coumadin] 5 mg PO HS #30 tab 09/17/24 09/21/24 Rx Diltiazem Oral [Cardizem*] 30 mg PO TID #90 tab 09/19/24 09/21/24 Rx Allergies Allergy/AdvReac Type Severity Reaction Status Date / Time adhesive Allergy blisters Verified 09/21/24 18:29 amoxicillin Allergy Rash/Hives Verified 09/21/24 18:29 ciprofloxacin [From Cipro] AdvReac Dyspnea Verified 09/21/24 18:29 ciprofloxacin HCl AdvReac Dyspnea Verified 09/21/24 18:29 [From Cipro] Physical Exam Vitals: Vital Signs Temp Pulse Resp BP Pulse Ox 09/22/24 06:00 98.0 F 127 H 18 121/70 98 09/22/24 02:56 97.8 F 125 H 17 100/73 95 09/22/24 00:10 98.0 F 125 H 19 109/61 99 09/21/24 22:39 125 H 20 99 09/21/24 19:29 98.9 F 128 H 16 118/57 100 09/21/24 18:33 128 H 16 122/66 100 09/21/24 15:53 96 09/21/24 15:44 98.9 F 128 H 16 123/84 91 L Intake and Output 09/21/24 09/22/24 09/22/24 22:59 06:59 14:59 Other: Weight 108.409 kg -GENERAL: The patient is alert and oriented x3, not in any acute distress. Well developed, well nourished. Obese HEENT: Pupils are round and equally reacting to light. EOMI. No scleral icterus. No conjunctival pallor. Normocephalic, atraumatic. No pharyngeal erythema. No th yromegaly. CARDIOVASCULAR: S1 and S2 present. No murmurs, rubs, or gallops. PULMONARY: Chest is clear to auscultation, no wheezing , no crackles. -ABDOMEN: Soft, nontender, nondistended, normoactive bowel sounds. No palpable organomegaly. Left lower quadrant colostomy, lower midline fistula with little discharge, chronic MUSCULOSKELETAL: No joint swelling or deformity. EXTREMITIES: No cyanosis, clubbing, or pedal edema. NEUROLOGICAL: Gross neurological examination did not reveal any focal deficits. SKIN: No rashes. no petechiae. Results CBC & Chem 7: 09/22/24 06:27 09/22/24 06:27 Labs: Abnormal Lab Results - Last 24 Hours (Table) 09/21/24 09/21/24 09/21/24 Range/Units 16:07 16:07 16:07 RBC 3.62 L (3.80-5.40) m/uL Hgb 10.2 L (11.4-16.0) gm/dL Hct 33.0 L (34.0-46.0) % MCHC 30.8 L (31.0-37.0) g/dL RDW 16.0 H (11.5-15.5) % Lymphocytes # 0.7 L (1.0-4.8) k/uL PT 65.2 H (10.0-12.5) sec INR 6.6 H* (<1.2) APTT 32.4 H (22.0-30.0) sec Chloride 97 L (98-107) mmol/L Carbon Dioxide 34 H (22-30) mmol/L BUN 20 H (7-17) mg/dL Creatinine 1.22 H (0.52-1.04) mg/dL Glucose 152 H (74-99) mg/dL POC Glucose (mg/dL) (70-110) mg/dL Calcium 8.2 L (8.4-10.2) mg/dL Albumin 3.4 L (3.5-5.0) g/dL 09/21/24 09/21/24 09/22/24 Range/Units 22:32 23:34 01:11 RBC (3.80-5.40) m/uL Hgb (11.4-16.0) gm/dL Hct (34.0-46.0) % MCHC (31.0-37.0) g/dL RDW (11.5-15.5) % Lymphocytes # (1.0-4.8) k/uL PT (10.0-12.5) sec INR (<1.2) APTT (22.0-30.0) sec Chloride (98-107) mmol/L Carbon Dioxide (22-30) mmol/L BUN (7-17) mg/dL Creatinine (0.52-1.04) mg/dL Glucose (74-99) mg/dL POC Glucose (mg/dL) 61 L 69 L 130 H (70-110) mg/dL Calcium (8.4-10.2) mg/dL Albumin (3.5-5.0) g/dL 09/22/24 09/22/24 09/22/24 Range/Units 06:05 06:27 06:27 RBC 3.72 L (3.80-5.40) m/uL Hgb 10.1 L (11.4-16.0) gm/dL Hct (34.0-46.0) % MCHC 28.8 L (31.0-37.0) g/dL RDW 16.1 H (11.5-15.5) % Lymphocytes # (1.0-4.8) k/uL PT (10.0-12.5) sec INR (<1.2) APTT (22.0-30.0) sec Chloride 97 L (98-107) mmol/L Carbon Dioxide 36 H (22-30) mmol/L BUN 21 H (7-17) mg/dL Creatinine 1.09 H (0.52-1.04) mg/dL Glucose 190 H (74-99) mg/dL POC Glucose (mg/dL) 201 H (70-110) mg/dL Calcium (8.4-10.2) mg/dL Albumin (3.5-5.0) g/dL 09/22/24 Range/Units 06:27 RBC (3.80-5.40) m/uL Hgb (11.4-16.0) gm/dL Hct (34.0-46.0) % MCHC (31.0-37.0) g/dL RDW (11.5-15.5) % Lymphocytes # (1.0-4.8) k/uL PT 65.6 H (10.0-12.5) sec INR 6.6 H* (<1.2) APTT (22.0-30.0) sec Chloride (98-107) mmol/L Carbon Dioxide (22-30) mmol/L BUN (7-17) mg/dL Creatinine (0.52-1.04) mg/dL Glucose (74-99) mg/dL POC Glucose (mg/dL) (70-110) mg/dL Calcium (8.4-10.2) mg/dL Albumin (3.5-5.0) g/dL Assessment and Plan Assessment: A-fib and RVR Acute CHF Coagulopathy Chronic kidney disease stage III History of asthma, not active issue Hypertension Hyperlipidemia Diabetes mellitus 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 Continue same treatment. Continue with symptomatic treatment. Resume home medication. Monitor labs and vitals. DVT and GI prophylaxis. Further recommendations as per clinical course of the patient DVT prophylaxis: S coagulopathic GI Prophylaxis: Protonix PT/OT: Pending Prognosis is guarded
[2024-09-22] MEDS: ASPIRIN 325 MG TAB PO SCH (09:05)
[2024-09-22] MEDS: METOPROLOL SUCCINATE (ER) 100 MG TAB.ER.24H PO SCH (09:05)
[2024-09-22] MEDS: PANTOPRAZOLE 40 MG TABLET PO SCH (09:05)
[2024-09-22] MEDS: DULoxetine HCL 60 MG CAPSULE.DR PO SCH (09:05)
[2024-09-22] MEDS: FUROSEMIDE 10 MG/ML 4 ML VIAL IV SCH (09:06)
--- NOTE | 2024-09-22 09:37 | P.CRDCN ---
History of Present Illness Consult date: 09/22/24 History of present illness: The patient is a pleasant 79-year-old female patient with a past medical history significant for paroxysmal atrial fibrillation as well as HFpEF and diabetes and hypertension and dyslipidemia who presented to the hospital with heart racing/fl uttering for the last 24 to 48 hours. No dizziness or lightheadedness and no presyncope or syncope and no symptoms of chest pain or chest discomfort or shortness of breath but she was found to be in A-fib with RVR and she was started on Cardizem IV with improvement in her symptoms. She is still in atrial fibrillation/flutter with overall uncontrolled heart rate and resting heart rate exceeding 120 bpm. Beside that she is in failure as well which she was on Lasix orally as an outpatient but she has not been compliant in taking the medications day by day. She is hypoxic and currently she needs oxygen. On examination she does have bilateral rhonchi with diminished breathing sounds bilaterally and she has irregular rhythm with a tachycardia. No edema was noted in the lower extremities with the most recent echo from 2024 showed preserved LV systolic function with no significant valvular abnormalities. She is on oral anticoagulation with Coumadin Assessment Atrial fibrillation with RVR HFpEF exacerbation Multiple comorbid conditions Plan Continue the current dose of IV Lasix Continue heart of the kidney function electrolytes Continue the Cardizem IV Consider cardioversion if she remains in atrial fibrillation Follow-up with the patient No reason to repeat the echocardiogram in the light of recent echocardiogram showing normal LV systolic function Past Medical History Past Medical History: Atrial Fibrillation, Atrial Flutter, Asthma, Coronary Artery Disease (CAD), Cancer, Diabetes Mellitus, GI Bleed, Hearing Disorder / Deafness, Hyperlipidemia, Hypertension, Neurologic Disorder, Osteoarthritis (OA), Pneumonia, Renal Disease, Thyroid Disorder Additional Past Medical History / Comment(s): Hx Pneumonia and Bronchitis. Hx right ovarian cancer had chemo - finished October 2017. 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 Neuropathy in hands and feet. Hard of hearing. Diverticulosis. Bleeding Ulcer 08/2024 History of Any Multi-Drug Resistant Organisms: ESBL, MRSA Date of last positivie culture/infection: 08/21/23 ESBL;08/31/22-MRSA MDRO Source:: Abdomen-MRSA; Urine-ESBL Past Surgical History: Appendectomy, Bowel Resection, Cholecystectomy, Hys terectomy, Joint Replacement, Orthopedic Surgery, Tonsillectomy Additional Past Surgical History / Comment(s): Exploratory laparotomy with ovarian tumor removal and lysis of adhesions, bilateral knee replacements, bilateral cataract removals, D&C/, glaucoma procedure left eye, non functioning neurostimlator removed, glaucoma surgery, colonoscopy, colostomy 03/20/2022-mult surgeries for draing wound w/ 2nd ostomy site for fistula draining rt lower abd, trigger finger release. Past Anesthesia/Blood Transfusion Reactions: No Reported Reaction Additional Past Anesthesia/Blood Transfusion Reaction / Comment(s): Family hx unknown, patient was adopted. No hx blood transfusions Past Psychological History: Bipolar, Depression Smoking Status: Former smoker Past Alcohol Use History: Occasional Past Drug Use History: None Reported - Past Family History Father History Unknown: Yes Family Medical History: Unable to Obtain Additional Family Medical History / Comment(s): Pt is adopted and does not know parents medical history. Medications and Allergies Home Medications Medication Instructions Recorded Confirmed Type Baclofen 10 mg PO QID PRN 01/06/16 09/21/24 History DULoxetine HCL [Cymbalta] 60 mg PO DAILY 01/06/16 09/21/24 History Atorvastatin Calcium [Lipitor] 40 mg PO HS 12/31/18 09/21/24 History oxyCODONE HCL [oxyCODONE HCL (IR)] 10 mg PO Q6H PRN 3 Days #12 tab 03/23/22 09/21/24 Rx Insulin NPH Hum/Reg Insulin Hm 10 unit SQ AC-BID 06/13/23 09/21/24 History [NovoLIN 70-30 100 Unit/ml Vial] Pioglitazone HCl 15 mg PO DAILY 06/13/23 09/21/24 History Insulin Glargine/Lixisenatide 45 units SQ DAILY 09/14/24 09/21/24 History [Soliqua 100 Unit-33 Mcg/ml Pen] Levothyroxine Sodium [Synthroid] 112 mcg PO DAILY 09/14/24 09/21/24 History Pantoprazole [Protonix] 40 mg PO DAILY 09/14/24 09/21/24 History busPIRone HCL [Buspar] 7.5 mg PO BID PRN 09/14/24 09/21/24 History Furosemide [Lasix] 20 mg PO DAILY #20 tab 09/17/24 09/21/24 Rx Metoprolol Succinate (ER) [Toprol 150 mg PO BID #60 tab 09/17/24 09/21/24 Rx XL] Warfarin [Coumadin] 5 mg PO HS #30 tab 09/17/24 09/21/24 Rx Diltiazem Oral [Cardizem*] 30 mg PO TID #90 tab 09/19/24 09/21/24 Rx Allergies Allergy/AdvReac Type Severity Reaction Status Date / Time adhesive Allergy blisters Verified 09/21/24 18:29 amoxicillin Allergy Rash/Hives Verified 09/21/24 18:29 ciprofloxacin [From Cipro] AdvReac Dyspnea Verified 09/21/24 18:29 ciprofloxacin HCl AdvReac Dyspnea Verified 09/21/24 18:29 [From Cipro] Physical Exam Vitals: Vital Signs Temp Pulse Resp BP Pulse Ox 09/22/24 09:00 128 H 20 125/61 97 09/22/24 06:00 98.0 F 127 H 18 121/70 98 09/22/24 02:56 97.8 F 125 H 17 100/73 95 09/22/24 00:10 98.0 F 125 H 19 109/61 99 09/21/24 22:39 125 H 20 99 09/21/24 19:29 98.9 F 128 H 16 118/57 100 09/21/24 18:33 128 H 16 122/66 100 09/21/24 15:53 96 09/21/24 15:44 98.9 F 128 H 16 123/84 91 L Intake and Output 09/21/24 09/22/24 09/22/24 22:59 06:59 14:59 Other: Weight 108.409 kg Results 09/22/24 06:27 09/22/24 06:27 Cardiac Enzymes 09/21/24 09/21/24 09/21/24 Range/Units 16:07 16:07 19:43 AST 22 (14-36) U/L Troponin I <0.012 <0.012 (0.000-0.034) ng/mL 09/21/24 Range/Units 22:22 AST (14-36) U/L Troponin I <0.012 (0.000-0.034) ng/mL Coagulation 09/21/24 09/22/24 Range/Units 16:07 06:27 PT 65.2 H 65.6 H (10.0-12.5) sec APTT 32.4 H (22.0-30.0) sec CBC 09/21/24 09/22/24 Range/Units 16:07 06:27 WBC 8.5 8.8 (3.8-10.6) k/uL RBC 3.62 L 3.72 L (3.80-5.40) m/uL Hgb 10.2 L 10.1 L (11.4-16.0) gm/dL Hct 33.0 L 35.1 (34.0-46.0) % Plt Count 376 346 (150-450) k/uL Comprehensive Metabolic Panel 09/21/24 09/22/24 Range/Units 16:07 06:27 Sodium 137 137 (137-145) mmol/L Potassium 4.3 4.2 (3.5-5.1) mmol/L Chloride 97 L 97 L (98-107) mmol/L Carbon Dioxide 34 H 36 H (22-30) mmol/L BUN 20 H 21 H (7-17) mg/dL Creatinine 1.22 H 1.09 H (0.52-1.04) mg/dL Glucose 152 H 190 H (74-99) mg/dL Calcium 8.2 L 8.5 (8.4-10.2) mg/dL AST 22 (14-36) U/L ALT 21 (4-34) U/L Alkaline Phosphatase 123 (38-126) U/L Total Protein 6.3 (6.3-8.2) g/dL Albumin 3.4 L (3.5-5.0) g/dL Current Medications Generic Name Dose Route Start Last Admin Trade Name Freq PRN Reason Stop Dose Admin Aspirin 325 mg 09/22/24 09:00 09/22/24 09:05 Aspirin 325 Mg Tab PO 325 mg DAILY [facility] Administration Atorvastatin Calcium 40 mg 09/22/24 21:00 Atorvastatin 40 Mg Tab PO HS [facility] Baclofen 10 mg 09/21/24 21:55 09/22/24 06:00 Baclofen 10 Mg Tab PO 10 mg QID PRN Administration Muscle Spasm Buspirone HCl 7.5 mg 09/21/24 21:55 Buspirone Hcl 5 Mg Tab PO BID PRN Anxiety Duloxetine HCl 60 mg 09/22/24 09:00 09/22/24 09:05 Duloxetine Hcl 60 Mg Capsule.Dr PO 60 mg DAILY [facility] Administration Furosemide 40 mg 09/22/24 09:00 09/22/24 09:06 Furosemide 10 Mg/Ml 4 Ml Vial IV 40 mg Q12HR [facility] Administration Diltiazem HCl 125 mg/ Sodium 125 mls @ 5 mls/hr 09/21/24 18:45 09/21/24 19:22 Chloride IV 5 mg/hr .Q24H [facility] 5 mls/hr Administration 5 MG/HR Metoprolol Succinate 150 mg 09/22/24 09:00 09/22/24 09:05 Metoprolol Succinate (Er) 100 Mg Tab.Er.24h PO 150 mg BID [facility] Administration Nitroglycerin 0.4 mg 09/21/24 18:52 Nitroglycerin Sl Tabs 0.4 Mg Tab SUBLINGUAL Q5M PRN Chest Pain Oxycodone HCl 10 mg 09/21/24 21:55 09/22/24 02:52 Oxycodone Hcl 5 Mg Tab PO 10 mg Q6H PRN Administration Pain Pantoprazole Sodium 40 mg 09/22/24 07:30 09/22/24 09:05 Pantoprazole 40 Mg Tablet PO 40 mg AC-BRKFST [facility] Administration Pioglitazone HCl 15 mg 09/22/24 09:00 Pioglitazone 15 Mg Tab PO DAILY [facility] Intake and Output 09/21/24 09/22/24 09/22/24 22:59 06:59 14:59 Other: Weight 108.409 kg 09/22/24 06:27 09/22/24 06:27
[2024-09-22 10:31] LABS: Chol/HDL Ratio 1.79 Ratio; LDL Cholesterol,Calculated 35.3 mg/dL (0.0-131.0)
[2024-09-22] MEDS: PIOGLITAZONE 15 MG TAB PO SCH (10:33)
[2024-09-22] MEDS: PHYTONADIONE ORAL 5 MG/5 ML ORAL.SYRG PO STA (10:34)
[2024-09-22 16:53] LABS: Glucose,Whole Blood 165 mg/dL (70-110)
[2024-09-22] MEDS: INSULIN NPL/INSULIN LISPRO 100 UNIT/ML 10 ML VL (Humalog 75/25) SQ SCH (17:00)
[2024-09-22 20:00] LABS: Glucose,Whole Blood 205 mg/dL (70-110)
[2024-09-22] MEDS: ATORVASTATIN 40 MG TAB PO SCH (20:21)
[2024-09-23 06:01] LABS: Glucose,Whole Blood 117 mg/dL (70-110)
--- NOTE | 2024-09-23 07:24 | P.PN ---
Subjective Progress Note Date: 09/23/24 The patient is a pleasant 79-year-old female patient with a past medical history significant for paroxysmal atrial fibrillation as well as HFpEF and diabetes and hypertension and dyslipidemia who presented to the hospital with heart racing/fluttering for the last 24 to 48 hours. No dizziness or lightheadedness and no presyncope or syncope and no symptoms of chest pain or chest discomfort or shortness of breath but she was found to be in A-fib with RVR and she was started on Cardizem IV with improvement in her symptoms. She is still in atrial fibrillation/flutter with overall uncontrolled heart rate and resting heart rate exceeding 120 bpm. Beside that she is in failure as well which she was on Lasix orally as an outpatient but she has not been compliant in taking the medications day by day. She is hypoxic and currently she needs oxygen. On examination she does have bilateral rhonchi with diminished breathing sounds bilaterally and she has irregular rhythm with a tachycardia. No edema was noted in the lower extremities with the most recent echo from 2024 showed preserved LV systolic f unction with no significant valvular abnormalities. She is on oral anticoagulation with Coumadin September 23 2024 The patient was seen this morning. She remains in atrial fibrillation with uncontrolled heart rate on high dose of beta-jewell which she is on oral anticoagulation using Coumadin. I would advise proceeding with a HOANG and cardioversion to be done in the next 24 to 48 hours meanwhile continue the current medical regimen including the current dose of IV diuretics for heart failure. The physical examination is remarkable for irregular rhythm with diminished breathing sounds bilaterally and mild bilateral lower extremities edema noted. Assessment Atrial fibrillation with RVR HFpEF exacerbation Multiple comorbid conditions Plan Continue the current dose of IV Lasix Continue heart of the kidney function electrolytes Continue the Cardizem IV Consider cardioversion if she remains in atrial fibrillation Follow-up with the patient No reason to repeat the echocardiogram in the light of recent echocardiogram showing normal LV systolic function Objective - Vital Signs Vital signs: Vital Signs Temp 97.7 F 09/23/24 04:00 Pulse 77 09/23/24 04:00 Resp 16 09/23/24 04:00 BP 133/64 09/23/24 04:00 Pulse Ox 99 09/23/24 04:00 FiO2 Intake & Output 09/22/24 09/23/24 09/23/24 18:59 06:59 18:59 Intake Total 215.417 600 Balance 215.417 600 Weight 108.409 kg 110.5 kg Intake: Intake, IV Titration 95.417 Amount Diltiazem 125 mg In 95.417 Sodium Chloride 0.9% 100 ml @ 5 MG/HR 5 mls/hr IV .Q24H COUNT INCLUDES THE [facility] Rx#:[id number] Oral 120 600 Other: Voiding Method External Catheter - Labs CBC & Chem 7: 09/22/24 06:27 09/22/24 06:27 Labs: Abnormal Lab Results - Last 24 Hours (Table) 09/22/24 09/22/24 09/22/24 Range/Units 06:27 16:50 19:58 POC Glucose (mg/dL) 165 H 205 H (70-110) mg/dL HDL Cholesterol 65.20 H (40.00-60.00) mg/dL 09/23/24 Range/Units 05:59 POC Glucose (mg/dL) 117 H (70-110) mg/dL HDL Cholesterol (40.00-60.00) mg/dL
[2024-09-23 07:46] LABS: Anisocytosis Slight; Basophils % (A) 0 %; Eosinophils # (A) 0.4 k/uL (0-0.7); Eosinophils % (A) 6 %; HCT 34.1 % (34.0-46.0); HGB 9.7 gm/dL (11.4-16.0); Hypochromasia Marked; Lymphocytes # (A) 1.1 k/uL (1.0-4.8); Lymphocytes % (A) 17 %; MCH 26.7 pg (25.0-35.0); MCHC 28.6 g/dL (31.0-37.0); MCV 93.2 fL (80.0-100.0); Mean Platelet Volume 7.9; Monocytes # (A) 0.7 k/uL (0-1.0); Monocytes % (A) 11 %; Neutrophils # (A) 4.2 k/uL (1.3-7.7); Neutrophils % (A) 64 %; Platelet Count 341 k/uL (150-450); RBC 3.65 m/uL (3.80-5.40); RDW 16.1 % (11.5-15.5); WBC 6.5 k/uL (3.8-10.6)
[2024-09-23 07:58] LABS: INR 2.4 (<1.2); Prothrombin Time 24.5 sec (10.0-12.5)
[2024-09-23 08:07] LABS: African American GFR (CKD) 51 (>60 ml/min/1.73 sqM); Anion Gap 4 mmol/L; Blood Urea Nitrogen 23 mg/dL (7-17); Calcium 8.4 mg/dL (8.4-10.2); Carbon Dioxide 37 mmol/L (22-30); Chloride 96 mmol/L (98-107); Glucose 99 mg/dL (74-99); Non-African American GFR(CKD) 44 (>60 ml/min/1.73 sqM); Potassium 4.2 mmol/L (3.5-5.1); Sodium 137 mmol/L (137-145)
--- NOTE | 2024-09-23 08:54 | P.PN ---
Subjective This is a pleasant 79 years old female with past medical history of multiple medical problems including atrial fibrillation, coronary artery disease, chronic kidney disease LLQ colostomy and lower abdominal fistula Presents because of rapid heart beat since 2 days ago, Sunday was a sporadic Sunday was the whole day. She called her panel machine setter Dr. Garcia who referred her to emergency room Patient has ongoing right chest pain comes and goes, she had it over the last 2 days mild on the right side felt like a "no specific previous dating or rel ieving factors. No dyspnea but she was placed on oxygen for comfort emergency room. No coughing. No specific GI/ symptom. She feels little dizzy when she sits up. No headache weakness or numbness. She denies smoking alcohol or illicit drugs. She is hemodynamically stable. She is tachycardic with heart rate about 128 since admission. Hemoglobin 10.2 and INR 6.6. Creatinine 1.2 with baseline 1.1-1.3. Chest x-ray showed cardiomegaly with pulmonary vascular congestion and bilateral pleural effusion. EKG showing atrial flutter with a rate of 128 09/23 Patient remains mildly tachypneic, she has mild to moderate basal crepitation and leg edema No chest pain Heart rate was still elevated and she was still on Cardizem drip through the day her heart rate came down to 63. Blood pressure is controlled Hemoglobin 9.7 with some evidence of hemodilution. INR down to 2.4. Report pharmacy to dose for Coumadin. Creatinine 1.17 which is baseline. TSH is elevated 5.5. T4 is pending. proBNP is elevated at 7760 Patient remains on IV Lasix 4 mg twice daily Also on metoprolol 150 twice daily and insulin Review of systems CONSTITUTIONAL: No fever, no malaise, no fatigue. . NEUROLOGICAL: No headaches, no weakness, no numbness. HEMATOLOGICAL: Denies any bleeding or petechiae. GENITOURINARY: Denies any burning micturition, frequency, or urgency. MUSCULOSKELETAL/RHEUMATOLOGICAL: Denies any joint pain, swelling, or any muscle pain. ENDOCRINE: Denies any polyuria or polydipsia. Active Medications Generic Name Dose Route Start Last Admin Trade Name Freq PRN Reason Stop Dose Admin Aspirin 325 mg 09/22/24 09:00 09/22/24 09:05 Aspirin 325 Mg Tab PO 325 mg DAILY [facility] Administration Atorvastatin Calcium 40 mg 09/22/24 21:00 09/22/24 20:21 Atorvastatin 40 Mg Tab PO 40 mg HS [facility] Administration Baclofen 10 mg 09/21/24 21:55 09/23/24 03:06 Baclofen 10 Mg Tab PO 10 mg QID PRN Administration Muscle Spasm Buspirone HCl 7.5 mg 09/21/24 21:55 Buspirone Hcl 5 Mg Tab PO BID PRN Anxiety Diltiazem HCl 30 mg 09/23/24 09:00 Diltiazem Oral 30 Mg Tab PO TID [facility] Duloxetine HCl 60 mg 09/22/24 09:00 09/22/24 09:05 Duloxetine Hcl 60 Mg Capsule.Dr PO 60 mg DAILY [facility] Administration Furosemide 40 mg 09/22/24 09:00 09/22/24 20:21 Furosemide 10 Mg/Ml 4 Ml Vial IV 40 mg Q12HR [facility] Administration Insulin Lispro Protam/Lispro Human 10 unit 09/22/24 17:30 09/23/24 06:51 Insulin Npl/Insulin Lispro 100 Unit/Ml 10 Ml Vl (Humalog ) SQ 10 unit AC-BID [facility] Administration Metoprolol Succinate 150 mg 09/22/24 09:00 09/22/24 20:21 Metoprolol Succinate (Er) 100 Mg Tab.Er.24h PO 150 mg BID [facility] Administration Miscellaneous Information 1 each 09/23/24 08:48 Warfarin Per Pharmacy MISCELLANE DIRECTED PRN Per Protocol Protocol Nitroglycerin 0.4 mg 09/21/24 18:52 Nitroglycerin Sl Tabs 0.4 Mg Tab SUBLINGUAL Q5M PRN Chest Pain Insulin Glargine/ 45 units 09/23/24 09:00 Lixisenatide [ SQ Soliqua 100 Unit-33 DAILY [facility] Mcg/Ml Pen] 3 Ml In Oxycodone HCl 10 mg 09/21/24 21:55 09/23/24 03:06 Oxycodone Hcl 5 Mg Tab PO 10 mg Q6H PRN Administration Pain Pantoprazole Sodium 40 mg 09/22/24 07:30 09/23/24 06:50 Pantoprazole 40 Mg Tablet PO 40 mg AC-BRKFST [facility] Administration Pioglitazone HCl 15 mg 09/22/24 09:00 09/22/24 10:33 Pioglitazone 15 Mg Tab PO 15 mg DAILY [facility] Administration Objective - Vital Signs Vital signs: Vital Signs Temp 97.3 F L 09/23/24 07:40 Pulse 63 09/23/24 07:40 Resp 16 09/23/24 07:40 BP 122/69 09/23/24 07:40 Pulse Ox 100 09/23/24 07:40 FiO2 Intake & Output 09/22/24 09/23/24 09/23/24 18:59 06:59 18:59 Intake Total 215.417 600 Balance 215.417 600 Weight 108.409 kg 110.5 kg Intake: Intake, IV Titration 95.417 Amount Diltiazem 125 mg In 95.417 Sodium Chloride 0.9% 100 ml @ 5 MG/HR 5 mls/hr IV .Q24H [facility] Rx#:[id number] Oral 120 600 Other: Voiding Method External Catheter External Catheter - Exam -GENERAL: The patient is alert and oriented x3, not in any acute distress. W morbidly obese HEENT: Pupils are round and equally reacting to light. EOMI. No scleral icterus. No conjunctival pallor. Normocephalic, atraumatic. No pharyngeal erythema. No thyromegaly. CARDIOVASCULAR: S1 and S2 present. No murmurs, rubs, or gallops. -PULMONARY: Chest is clear to auscultation, no wheezing , mild bilateral basal crackles. ABDOMEN: Soft, nontender, nondistended, normoactive bowel sounds. No palpable organomegaly. MUSCULOSKELETAL: No joint swelling or deformity. -EXTREMITIES: No cyanosis, clubbing, o mild to moderate bilateral pitting leg edema. NEUROLOGICAL: Gross neurological examination did not reveal any focal deficits. SKIN: No rashes. no petechiae. - Labs CBC & Chem 7: 09/23/24 07:17 09/23/24 07:17 Labs: Abnormal Lab Results - Last 24 Hours (Table) 09/22/24 09/22/24 09/22/24 Range/Units 06:27 16:50 19:58 RBC (3.80-5.40) m/uL Hgb (11.4-16.0) gm/dL MCHC (31.0-37.0) g/dL RDW (11.5-15.5) % PT (10.0-12.5) sec INR (<1.2) Chloride (98-107) mmol/L Carbon Dioxide (22-30) mmol/L BUN (7-17) mg/dL Creatinine (0.52-1.04) mg/dL POC Glucose (mg/dL) 165 H 205 H (70-110) mg/dL HDL Cholesterol 65.20 H (40.00-60.00) mg/dL TSH (0.465-4.680) mIU/L 09/23/24 09/23/24 09/23/24 Range/Units 05:59 07:17 07:17 RBC (3.80-5.40) m/uL Hgb (11.4-16.0) gm/dL MCHC (31.0-37.0) g/dL RDW (11.5-15.5) % PT 24.5 H (10.0-12.5) sec INR 2.4 H (<1.2) Chloride 96 L (98-107) mmol/L Carbon Dioxide 37 H (22-30) mmol/L BUN 23 H (7-17) mg/dL Creatinine 1.17 H (0.52-1.04) mg/dL POC Glucose (mg/dL) 117 H (70-110) mg/dL HDL Cholesterol (40.00-60.00) mg/dL TSH 5.560 H (0.465-4.680) mIU/L 09/23/24 Range/Units 07:17 RBC 3.65 L (3.80-5.40) m/uL Hgb 9.7 L (11.4-16.0) gm/dL MCHC 28.6 L (31.0-37.0) g/dL RDW 16.1 H (11.5-15.5) % PT (10.0-12.5) sec INR (<1.2) Chloride (98-107) mmol/L Carbon Dioxide (22-30) mmol/L BUN (7-17) mg/dL Creatinine (0.52-1.04) mg/dL POC Glucose (mg/dL) (70-110) mg/dL HDL Cholesterol (40.00-60.00) mg/dL TSH (0.465-4.680) mIU/L
[2024-09-23] MEDS: DEXTROSE 5% IN WATER 100 ML with AMIODARONE 150 MG IV ONE (09:59)
[2024-09-23] MEDS: AMIODARONE 360 MG in DEXTROSE 5% IN WATER 200 ML IV ONE (10:16)
[2024-09-23] MEDS: DILTIAZEM ORAL 30 MG TAB PO SCH (10:25)
[2024-09-23] MEDS: Insulin Glargine/Lixisenatide [Soliqua 100 Unit-33 Mcg/Ml Pen] 3 ML In SQ SCH (10:42)
[2024-09-23 11:53] LABS: Glucose,Whole Blood 127 mg/dL (70-110)
[2024-09-23] MEDS: DILTIAZEM 125 MG in SODIUM CHLORIDE 0.9% 100 ML IV SCH (13:41)
[2024-09-23] MEDS: AMIODARONE 450 MG in DEXTROSE 5% IN WATER 250 ML IV SCH (15:43)
[2024-09-23] MEDS: busPIRone HCl 5 MG TAB PO PRN (16:52)
[2024-09-23 16:59] LABS: Glucose,Whole Blood 97 mg/dL (70-110)
[2024-09-23] MEDS ORDERED: WARFARIN 2.5 MG TAB PO ONE (18:00)
[2024-09-23 20:03] LABS: Glucose,Whole Blood 161 mg/dL (70-110)
[2024-09-23] MEDS: NITROGLYCERIN SL TABS 0.4 MG TAB SUBLINGUAL PRN (23:15)
[2024-09-24 06:03] LABS: Glucose,Whole Blood 173 mg/dL (70-110)
[2024-09-24 06:55] LABS: Anisocytosis Slight; Basophils % (A) 0 %; Eosinophils # (A) 0.4 k/uL (0-0.7); Eosinophils % (A) 5 %; HCT 32.5 % (34.0-46.0); HGB 9.9 gm/dL (11.4-16.0); Hypochromasia Marked; Lymphocytes % (A) 14 %; MCH 27.6 pg (25.0-35.0); MCHC 30.4 g/dL (31.0-37.0); MCV 90.9 fL (80.0-100.0); Mean Platelet Volume 7.5; Monocytes # (A) 0.8 k/uL (0-1.0); Monocytes % (A) 10 %; Neutrophils # (A) 5.3 k/uL (1.3-7.7); Neutrophils % (A) 68 %; Platelet Count 362 k/uL (150-450); RBC 3.57 m/uL (3.80-5.40); WBC 7.7 k/uL (3.8-10.6)
[2024-09-24 07:08] LABS: INR 2.3 (<1.2); Prothrombin Time 23.1 sec (10.0-12.5)
[2024-09-24 07:21] LABS: African American GFR (CKD) 45 (>60 ml/min/1.73 sqM); Anion Gap 5 mmol/L; Blood Urea Nitrogen 24 mg/dL (7-17); Calcium 8.2 mg/dL (8.4-10.2); Carbon Dioxide 36 mmol/L (22-30); Chloride 95 mmol/L (98-107); Glucose 168 mg/dL (74-99); Non-African American GFR(CKD) 39 (>60 ml/min/1.73 sqM); Potassium 3.6 mmol/L (3.5-5.1); Sodium 136 mmol/L (137-145)
--- NOTE | 2024-09-24 07:54 | P.PN ---
Subjective Progress Note Date: 09/24/24 The patient is a pleasant 79-year-old female patient with a past medical history significant for paroxysmal atrial fibrillation as well as HFpEF and diabetes and hypertension and dyslipidemia who presented to the hospital with heart racing/fluttering for the last 24 to 48 hours. No dizziness or lightheadedness and no presyncope or syncope and no symptoms of chest pain or chest discomfort or shortness of breath but she was found to be in A-fib with RVR and she was started on Cardizem IV with improvement in her symptoms. She is still in atrial fibrillation/flutter with overall uncontrolled heart rate and resting heart rate exceeding 120 bpm. Beside that she is in failure as well which she was on Lasix orally as an outpatient but she has not been compliant in taking the medications day by day. She is hypoxic and currently she needs oxygen. On examination she does have bilateral rhonchi with diminished breathing sounds bilaterally and she has irregular rhythm with a tachycardia. No edema was noted in the lower extremities with the most recent echo from 2024 showed preserved LV systolic f unction with no significant valvular abnormalities. She is on oral anticoagulation with Coumadin September 23 2024 The patient was seen this morning. She remains in atrial fibrillation with uncontrolled heart rate on high dose of beta-jewell which she is on oral anticoagulation using Coumadin. I would advise proceeding with a HOANG and cardioversion to be done in the next 24 to 48 hours meanwhile continue the current medical regimen including the current dose of IV diuretics for heart failure. The physical examination is remarkable for irregular rhythm with diminished breathing sounds bilaterally and mild bilateral lower extremities edema noted. September 24, 2024 The patient was seen and evaluated this morning. Currently her heart rate is controlled. With that I am going to stop the amnio IV and Cardizem IV and put her on amnio orally and Cardizem orally. Also her INR is therapeutic. Will resume the current or home dose of Coumadin. Beside that she seems to be more euvolemic. Am going to stop the Lasix IV and start the patient on oral Lasix. Anticipate discharge in the next 12 to 24 hours. The physical examination is remarkable for irregular rhythm with controlled heart rate and diminished breathing sounds bilaterally and mild bilateral lower extremities nonpitting edema noted Assessment Atrial fibrillation with RVR HFpEF exacerbation Multiple comorbid conditions Plan DC Cardizem IV and amiodarone IV Restart the patient on Cardizem orally and amiodarone orally Continue Coumadin for anticoagulation DC Lasix IV and start the patient on oral Lasix Anticipate discharge in the next 12 to 24 hours Objective - Vital Signs Vital signs: Vital Signs Temp 97.7 F 09/23/24 21:00 Pulse 92 09/24/24 05:10 Resp 18 09/24/24 05:10 BP 97/62 09/24/24 05:10 Pulse Ox 98 09/24/24 05:10 FiO2 Intake & Output 09/23/24 09/24/24 09/24/24 18:59 06:59 18:59 Intake Total 240 247.227 Output Total 1150 1300 Balance -910 -1052.773 Weight 110.2 kg Intake: Intake, IV Titration 247.227 Amount Amiodarone 450 mg In 247.227 Dextrose 5% in Water 250 ml @ 0.5 MG/MIN 16.667 mls/hr IV .Q15H [facility] Rx#: [id number] Oral 240 Output: Urine 1150 1300 Other: Voiding Method External Catheter External Catheter - Labs CBC & Chem 7: 09/24/24 06:30 09/24/24 06:30 Labs: Abnormal Lab Results - Last 24 Hours (Table) 09/23/24 09/23/24 09/23/24 Range/Units 07:17 07:17 11:52 RBC (3.80-5.40) m/uL Hgb (11.4-16.0) gm/dL Hct (34.0-46.0) % MCHC (31.0-37.0) g/dL RDW (11.5-15.5) % PT 24.5 H (10.0-12.5) sec INR 2.4 H (<1.2) Sodium (137-145) mmol/L Chloride 96 L (98-107) mmol/L Carbon Dioxide 37 H (22-30) mmol/L BUN 23 H (7-17) mg/dL Creatinine 1.17 H (0.52-1.04) mg/dL Glucose (74-99) mg/dL POC Glucose (mg/dL) 127 H (70-110) mg/dL Calcium (8.4-10.2) mg/dL TSH 5.560 H (0.465-4.680) mIU/L 09/23/24 09/24/24 09/24/24 Range/Units 20:02 06:02 06:30 RBC 3.57 L (3.80-5.40) m/uL Hgb 9.9 L (11.4-16.0) gm/dL Hct 32.5 L (34.0-46.0) % MCHC 30.4 L (31.0-37.0) g/dL RDW 16.0 H (11.5-15.5) % PT (10.0-12.5) sec INR (<1.2) Sodium (137-145) mmol/L Chloride (98-107) mmol/L Carbon Dioxide (22-30) mmol/L BUN (7-17) mg/dL Creatinine (0.52-1.04) mg/dL Glucose (74-99) mg/dL POC Glucose (mg/dL) 161 H 173 H (70-110) mg/dL Calcium (8.4-10.2) mg/dL TSH (0.465-4.680) mIU/L 09/24/24 09/24/24 Range/Units 06:30 06:30 RBC (3.80-5.40) m/uL Hgb (11.4-16.0) gm/dL Hct (34.0-46.0) % MCHC (31.0-37.0) g/dL RDW (11.5-15.5) % PT 23.1 H (10.0-12.5) sec INR 2.3 H (<1.2) Sodium 136 L (137-145) mmol/L Chloride 95 L (98-107) mmol/L Carbon Dioxide 36 H (22-30) mmol/L BUN 24 H (7-17) mg/dL Creatinine 1.29 H (0.52-1.04) mg/dL Glucose 168 H (74-99) mg/dL POC Glucose (mg/dL) (70-110) mg/dL Calcium 8.2 L (8.4-10.2) mg/dL TSH (0.465-4.680) mIU/L
[2024-09-24] MEDS: AMIODARONE 200 MG TAB PO SCH (10:07)
[2024-09-24] MEDS: DILTIAZEM ORAL 30 MG TAB PO SCH (10:07)
[2024-09-24] MEDS: FUROSEMIDE 40 MG TAB PO SCH (10:08)
[2024-09-24] MEDS: POTASSIUM CHLORIDE ER 20 MEQ TAB.ER PO STA (11:14)
[2024-09-24 11:29] VITALS: BP 118/67; PULSE 64; RESP 18; TEMP 97.9
[2024-09-24 11:40] LABS: Glucose,Whole Blood 127 mg/dL (70-110)
--- NOTE | 2024-09-24 17:01 | P.DS ---
Providers Date of admission: 09/21/24 18:55 Attending physician: Abilio Patel Consults: 09/21/24 18:52 Consult Physician Urgent Consulting Provider: [facility] Consult Reason/Comments: Atrial flutter with rapid ventricular response Do you want consulting provider notified?: Yes Primary care physician: Linda Sanders Hospital Course: Diagnoses: A-fib and RVR Acute CHF, preserved ejection fraction Coagulopathy Chronic hypoxic respiratory failure, patient uses oxygen at home 2 L/min, she confirms to me she has oxygen at home Chronic kidney disease stage III History of asthma, not active issue Hypertension Hyperlipidemia Diabetes mellitus 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 Presents because of rapid heart beat since 2 days ago, patient was found to be in A-fib and RVR and possible mild CHF exacerbation she was treated with IV Lasix and Cardizem drip, also she has coagulopathy with INR was 6.6 on admission she was taking 5 mg of Coumadin at home. With treatment patient showed interval improvement. Patient been followed closely by cardiology service as well. On the day of discharge her heart was controlled she denies any chest pain or dyspnea. No other new complaints she agrees to go home. Her INR was therapeutic at 2.3 and we lowered the dose of Coumadin down to 2.5 mg and added aspirin 81 mg per slot floor supervisor. Patient tolerates that well. Patient instructed to check her INR in 2 to 3 days after discharge with her slot floor supervisor office or PCP and she agreed and prescription provided for her in this regard. Also patient was placed on oral Cardizem and oral amiodarone per slot floor supervisor I discussed the case with Dr. Carpenter today who cleared her to go home as he told me. Problems and management plan were discussed with the patient and he verbalized understanding and acceptance Patient was found stable and can be discharged home in guarded prognosis however he needs follow-up as an outpatient. Patient was instructed to follow up with PCP within one week and patient agrees. Patient told me she already has an appointment with her PCP this coming week 07/02 that she intends to follow-up with Patient was directed to follow-up with Dr. Carpenter in 1 week and she agrees with appointment made for her. Physical exam Gen: patient is a AAOx3, no distress CVS: S1-S2, RRR, no murmur Lungs: B/L CTA, no wheezing -Abdomen: soft, no distention, no tenderness, positive bowel sounds. LLQ colostomy and lower abdominal fistula. Both are chronic Extremity: no leg edema or induration Time spent more than 35 minutes Plan - Discharge Summary Discharge Rx Participant: No New Discharge Prescriptions: New Amiodarone [Cordarone] 400 mg PO BID #120 tab Aspirin EC [Ecotrin Low Dose] 81 mg PO DAILY #30 tab Furosemide [Lasix] 40 mg PO BID@0900,1600 #60 tab Warfarin [Coumadin] 2.5 mg PO DAILY #30 tab Continue DULoxetine HCL [Cymbalta] 60 mg PO DAILY Baclofen 10 mg PO QID PRN PRN Reason: Muscle Spasm Atorvastatin Calcium [Lipitor] 40 mg PO HS oxyCODONE HCL [oxyCODONE HCL (IR)] 10 mg PO Q6H PRN 3 Days #12 tab PRN Reason: Pain Insulin NPH Hum/Reg Insulin Hm [NovoLIN 70-30 100 Unit/ml Vial] 10 unit SQ AC-BID Levothyroxine Sodium [Synthroid] 112 mcg PO DAILY Insulin Glargine/Lixisenatide [Soliqua 100 Unit-33 Mcg/ml Pen] 45 units SQ DAILY Metoprolol Succinate (ER) [Toprol XL] 150 mg PO BID #60 tab Diltiazem Oral [Cardizem*] 30 mg PO TID #90 tab Pioglitazone HCl 15 mg PO DAILY busPIRone HCL [Buspar] 7.5 mg PO BID PRN PRN Reason: Anxiety Pantoprazole [Protonix] 40 mg PO DAILY #30 tab Discontinued Warfarin [Coumadin] 5 mg PO HS #30 tab Furosemide [Lasix] 20 mg PO DAILY #20 tab Discharge Medication List Baclofen 10 mg PO QID PRN 01/06/16 [History] DULoxetine HCL [Cymbalta] 60 mg PO DAILY 01/06/16 [History] Atorvastatin Calcium [Lipitor] 40 mg PO HS 12/31/18 [History] oxyCODONE HCL [oxyCODONE HCL (IR)] 10 mg PO Q6H PRN 3 Days #12 tab 09/22/22 [Rx] Insulin NPH Hum/Reg Insulin Hm [NovoLIN 70-30 100 Unit/ml Vial] 10 unit SQ AC- BID 06/13/23 [History] Pioglitazone HCl 15 mg PO DAILY 06/13/23 [History] Insulin Glargine/Lixisenatide [Soliqua 100 Unit-33 Mcg/ml Pen] 45 units SQ DAILY 09/14/24 [History] Levothyroxine Sodium [Synthroid] 112 mcg PO DAILY 09/14/24 [History] busPIRone HCL [Buspar] 7.5 mg PO BID PRN 09/14/24 [History] Metoprolol Succinate (ER) [Toprol XL] 150 mg PO BID #60 tab 09/17/24 [Rx] Amiodarone [Cordarone] 400 mg PO BID #120 tab 09/24/24 [Rx] Aspirin EC [Ecotrin Low Dose] 81 mg PO DAILY #30 tab 09/24/24 [Rx] Diltiazem Oral [Cardizem*] 30 mg PO TID #90 tab 09/24/24 [Rx] Furosemide [Lasix] 40 mg PO BID@0900,1600 #60 tab 09/24/24 [Rx] Pantoprazole [Protonix] 40 mg PO DAILY #30 tab 09/24/24 [Rx] Warfarin [Coumadin] 2.5 mg PO DAILY #30 tab 09/24/24 [Rx] Follow up Appointment(s)/Referral(s): Celio Villegas MD [STAFF PHYSICIAN] - 10/03/24 3:00 pm (Patient will be seeing Dr Gage.) Linda Sanders MD [Primary Care Provider] - 09/30/24 [facility], [NON-STAFF] - Ambulatory/Diagnostic Orders: Prothrombin Time INR [LAB.AMB] Time Frame: 2 Days, Location: None Selected Patient Instructions/Handouts: Heart Failure (DC), A-fib (Atrial Fibrillation) (DC) Activity/Diet/Wound Care/Special Instructions: Heart healthy diet Activity is restricted till you see your doctor we recommend to check your INR in 2 to 3 days with your doctor, your goal INR is 2.0-3.0 Follow-up with your heart doctor Dr. Carpenter in [address] Gage. Check your INR with your heart doctor or your PCP In 2 to 3 days Continue on home dose of oxygen 2 L/min till you see your doctor in 1 week. Use oxygen day and night please you have appointment with your primary care doctor on 09/30/24 , this coming Sunday, please keep this appointment. We recommend you check your blood test including your potassium level and INR with your doctor Discharge Disposition: HOME WITH HOME HEALTH SERVICES
[2024-09-24] MEDS ORDERED: WARFARIN 2.5 MG TAB PO ONE (18:00)
== END 2024-09-24 12:53 | disposition home health service (06) | DRG 308 ==
LOC: EC 15:29 → 3SCARD 18:55
PROVIDERS: ADMIT Hospitalist; ATTEND Hospitalist
DX: I48.0 Paroxysmal atrial fibrillation (principal); I50.33 Acute on chronic diastolic (congestive) heart failure; K63.2 Fistula of intestine; D68.9 Coagulation defect, unspecified; J96.11 Chronic respiratory failure with hypoxia; E11.22 Type 2 diabetes mellitus with diabetic chronic kidney disease; D64.9 Anemia, unspecified; I13.0 Hypertensive heart and chronic kidney disease with heart failure and stage 1 through stage 4 chronic kidney disease, or unspecified chronic kidney disease; Z68.42 Body mass index [BMI] 45.0-49.9, adult; N18.30 Chronic kidney disease, stage 3 unspecified; F31.9 Bipolar disorder, unspecified; J45.909 Unspecified asthma, uncomplicated; E03.9 Hypothyroidism, unspecified; I65.22 Occlusion and stenosis of left carotid artery; E11.41 Type 2 diabetes mellitus with diabetic mononeuropathy; I48.92 Unspecified atrial flutter; Z79.4 Long term (current) use of insulin; Z93.3 Colostomy status; I25.10 Atherosclerotic heart disease of native coronary artery without angina pectoris; E66.9 Obesity, unspecified; E78.5 Hyperlipidemia, unspecified; H91.90 Unspecified hearing loss, unspecified ear; M19.90 Unspecified osteoarthritis, unspecified site; Z87.01 Personal history of pneumonia (recurrent); R00.0 Tachycardia, unspecified; Z79.01 Long term (current) use of anticoagulants; Z79.890 Hormone replacement therapy; Z79.899 Other long term (current) drug therapy; Z85.43 Personal history of malignant neoplasm of ovary; Z87.440 Personal history of urinary (tract) infections; Z87.891 Personal history of nicotine dependence; Z90.710 Acquired absence of both cervix and uterus; Z91.199 Patient's noncompliance with other medical treatment and regimen due to unspecified reason; Z96.653 Presence of artificial knee joint, bilateral; Z87.19 Personal history of other diseases of the digestive system; Z98.42 Cataract extraction status, left eye; Z98.41 Cataract extraction status, right eye; Z90.49 Acquired absence of other specified parts of digestive tract; Z88.1 Allergy status to other antibiotic agents; Z91.048 Other nonmedicinal substance allergy status; Z99.81 Dependence on supplemental oxygen; G89.29 Other chronic pain
CPT/HCPCS: 36415; 71046; 80048; 80053; 80061; 82607; 82746; 83735; 83880; 84439; 84443; 84484; 85025; 85610; 85730; 93005; 96365; 96366; 96375; 99291